=== PATIENT | male | born 1975 | race Caucasian/White ===

== ENCOUNTER 2025-03-16 09:30 | Inpatient (IN) | payer OTHER, SELFPAY ==
[2025-03-16] VITALS (13 sets, daily range): BP systolic 95–153; BP diastolic 52–98; PULSE 63–100; RESP 14–18; TEMP 36.1–37.1; O2SAT 93–99; BMI 35.9; BMI 25.7
[2025-03-16 10:12] LABS: Hematocrit 48.0 % (40-54); Hemoglobin 17.0 g/dL (13.0-16.5); Immature Granulocytes Count 0.040 X10^3/uL (0.0-0.0); Mean Corp Hgb Conc 35.4 g/dL (32-36); Mean Corpuscular Volume 80.9 fL (80-94); Mean Platelet Vol. 10.6 fl (6.2-12.0); NRBC Flagged by Analyzer 0 % (0-5); Platelet Count 237 K/mm3 (150-450); RBC Distribution Width CV 12.7 % (11.6-14.6); RBC Distribution Width SD 37.0 fl (35.1-43.9); Red Blood Count 5.93 M/mm3 (4.6-6.2); White Blood Count 9.0 K/mm3 (4.4-11.0)
--- NOTE | 2025-03-16 10:30 | US_ITS ---
PROCEDURE: GALLBLADDER 03/16/2025 REASON FOR EXAM: RUQ PAIN TECHNIQUE: Procedure Code: USGB Modality: US Procedure: GALLBLADDER. Real-time ultrasound of the right upper quadrant with image documentation. COMPARISON: None. FINDINGS: LIVER ECHOGENICITY: Diffuse increase in hepatic parenchymal echogenicity. SIZE: Enlarged measuring 17.5 cm in length. CONTOUR: Smooth. MASS: Hypoechoic 3.9 x 3.1 x 3.7 cm lesion in the right lobe with internal vascularity. PORTAL VEIN: Normal direction hepatopetal portal venous flow. GALLBLADDER SIZE: Normal. STONES: Multiple. SLUDGE: None. WALL THICKNESS: Normal measuring 1.6 mm. Echogenic intramural foci producing comet tail reverberation artifact, suggest gallbladder adenomyomatosis. PERICHOLECYSTIC FLUID: None. SONOGRAPHIC RAMÍREZ'S SIGN: Negative. BILE DUCTS: Distended CBD measuring 7.0 mm in diameter. PANCREAS: Unremarkable as visualized. The distal pancreas is obscured by overlying bowel gas. RIGHT KIDNEY: Normal size and echogenicity with a length of 11.6 cm. No hydronephrosis, nephrolithiasis, cyst or mass seen. ASCITES/EFFUSIONS: None. OTHER: None. US/Gallbladder IMPRESSION: 1. Enlarged hyperechoic liver, suggesting hepatic steatosis, although other di ffuse liver diseases can have this appearance. 2. Hypoechoic lesion in the right liver. A follow-up liver protocol CT or MRI is recommended to further evaluate. 3. Cholelithiasis without signs of acute cholecystitis. 4. Findings suggesting gallbladder adenomyomatosis. 5. Distended common bile duct, without an obstructing lesion seen. Reading Location: [id number]
--- NOTE | 2025-03-16 10:34 | EKG12_ITS ---
Test Reason : GENERAL Blood Pressure : */* mmHG Vent. Rate : 76 BPM Atrial Rate : 76 BPM P-R Int : 170 ms QRS Dur : 76 ms QT Int : 354 ms P-R-T Axes : 51 18 38 degrees QTcB Int : 398 ms Normal sinus rhythm with sinus arrhythmia Normal ECG Confirmed by CONSTANTIN FRAUSTO ([id number]), photograph editor CARI OLIVARES ([id number]) on 03/19/2025 9:11:15 AM Referred By: Confirmed By: CONSTANTIN FRAUSTO
[2025-03-16 10:40] LABS: Mucous, Urine 0 SEEN /hpf (<or=2+); Red Blood Cells-Urine 0 SEEN /hpf (0-5); Squamous Epithelial Cells - UA 0 SEEN /hpf (0-5)
[2025-03-16 10:42] LABS: Lipase 50 U/L (13-75)
[2025-03-16 10:42] LABS: Color, Urine Yellow (Yellow); Glucose, Dipstick Normal (Normal); Ketone-Dipstick Negative (Negative); Leukocyte Esterase-Dipstick Negative /ul (Negative); Nitrite-Dipstick Negative (Negative); Occult Blood-Urine 10 /ul (Negative); Protein-Dipstick Negative (Negative); Specific Gravity, Urine 1.010 (1.002-1.030); Urine Bilirubin Dipstick Negative (Negative)
[2025-03-16 10:46] LABS: AST(SGOT) 525 U/L (<=37); Alanine Aminotransfer ALT/SGPT 370 U/L (<=46); Albumin, Serum 4.7 g/dL (3.5-5.0); Alkaline Phosphatase 64 U/L (40-129); Anion Gap 14 (5-15); BUN 13 mg/dL (4-19); BUN/Creat Ratio 13.1 RATIO (10-20); Calcium,Total 10.4 mg/dL (7.6-11.0); Carbon Dioxide 20.3 mmol/L (21.0-32.0); Chloride 104 mmol/L (98-108); Estimated Creatinine Clearance 102.77 ml/min (50-250); Globulin 2.9 g/dL (2.2-4.2); Glucose 118 mg/dL (70-99); Potassium 4.2 mmol/L (3.3-5.1)
--- NOTE | 2025-03-16 11:11 | EDS_ITS ---
HPI HPI - GI History of Present Illness Chief Complaint: Abd Pain Informant: patient Narrative Narrative: Patient is a 49-year-old male with no significant past medical history presenting with worsening upper abdominal pain. has been having issues with epigastric/right upper quadrant abdominal pain for some time and self diagnosed himself with gallstone/gallbladder problems. most recently had episode about 2 weeks ago where he had relatively severe pain in her right upper quadrant after eating a particularly fatty meal that lasted for about 3 hours. States since then he has been watching his diet. Last night he had [employer] (a burrito and chalupa) around 6 PM and then around 10 PM had a cold cut sandwich and glass of iced tea. States that around 1:30 AM he started to have pain in his upper abdomen area that is more in the middle but goes across his whole upper abdomen. Denies any radiation to his back or chest. Has associated nausea. States the pain is not as sharp as has been before but is more dull in nature. Took 2 Tums around 6 AM with no significant relief. States he has not had anything to eat or drink today. Notes the pain is better if he hunches over and worse if he sits up straight. Notes he has been taking antacids more frequently lately. Denies any black or blood in his stool. Nuys any change in his bowel movements. Denies a history of any abdominal surgeries. Thinks when he is a teenager he maybe had some gastritis but does not recall the details. Does not have any known history of stomach ulcers. No fevers or chills reported. No other complaints or concerns at this time [facility] Medical History GERD (gastroesophageal reflux disease) Medical History no medical history Allergy/AdvReac Type Severity Reaction Status Date / Time No Known Allergies Allergy Verified 03/16/25 13:09 Social History Smoking Status: Never smoker ROS ROS ED Constitutional Constitutional ED: Denies chills or fever(s) Respiratory/Chest Respiratory/Chest: Denies cough Gastrointestinal Gastrointestinal: Reports abdominal pain and nausea; Denies constipation, diarrhea, melena or vomiting Genitourinary Genitourinary ED: Denies dysuria or hematuria Musculoskeletal Musculoskeletal: Denies arthralgias, back pain or myalgias Integumentary Denies rash Neurologic Neurologic: Denies weakness EXAM Physical Exam Const Vital Signs: 03/16/25 09:32 03/16/25 11:32 03/16/25 12:30 Temperature 97.2 F L 98.7 F Temperature Source Temporal Pulse Rate 100 75 68 Respiratory Rate 14 18 18 Blood Pressure 153/88 H 113/73 121/78 H Blood Pressure Mean 109 86 92 Pulse Ox 99 97 98 Oxygen Delivery Method Room Air Room Air Positive well nourished and well developed General Appearance ED: well developed; Negative for pallor HEENT normocephalic and atraumatic Eyes General Eye ED: Negative for pale conjunctiva or scleral icterus Neck supple and no JVD Resp normal respiratory effort and clear to auscultation bilaterally Cardio regular rate, regular rhythm and no murmurs GI non-distended GI Narrative: Mild epigastric abdominal tenderness, not highly reproduced on exam. Points to his right upper quadrant really as the area of his pain usually. Negative Flores sign. Inspection: Negative for abdominal distention Auscultation: normoactive bowel sounds Palpation: soft Back/Spine no CVA tenderness Extremity full ROM Neuro moves all extremities Sensorium / Orientation: alert Psych mental status grossly normal Skin no wounds General Skin Exam: Negative for jaundice or pallor MDM MDM MDM Narrative Medical decision making narrative: Patient evaluated for upper abdominal pain. Ports that history intermittent episodes of pain concerning for possible biliary colic. Differential also includes choledocholithiasis, acute cholecystitis, pancreatitis as well as gastritis/peptic ulcer disease. Patient's physical exam is relatively benign with a negative Flores sign. CBC coags normal. CMP does show an elevation of his total bilirubin as well as elevation of AST and ALT concerning for possible obstructive process. Direct bilirubin is added which is elevated. Lipase is normal. Urinalysis and is largely normal with negative bilirubin. Right upper quadrant ultrasound does not shows acute cholecystitis but does show some abnormalities of the liver as well as cholelithiasis and a dilation of the common bile duct. Concern for possible choledocholithiasis. Case is discussed with Dr. Sarah who agrees that patient benefit from ERCP. Patient will be admitted for this. Is kept NPO. Patient is given Protonix, IV fluids in the emergency room. Does not require pain medication in the ER as he states his pain is pretty mild at this time. Case is discussed with hospitalist for admission, Dr. Puckett. Lab Data Attestation: I reviewed the patient's lab results. Labs: Laboratory Results - last 24 hr 03/16/25 03/16/25 09:54 10:37 WBC 9.0 RBC 5.93 Hgb 17.0 H Hct 48.0 MCV 80.9 MCH 28.7 MCHC 35.4 RDW Std Deviation 37.0 RDW Coeff of Ghulam 12.7 Plt Count 237 MPV 10.6 Immature Gran % (Auto) 0.400 Neut % (Auto) 75.9 H Lymph % (Auto) 17.5 L [place] % (Auto) 4.8 Eos % (Auto) 1.0 Baso % (Auto) 0.4 Absolute Neuts (auto) 6.8 Absolute Lymphs (auto) 1.58 Nucleated RBC % 0 PT 13.3 INR 1.0 Sodium 138 Potassium 4.2 Chloride 104 Carbon Dioxide 20.3 L Anion Gap 14 BUN 13 Creatinine 1.02 Estim Creat Clear Calc 102.77 Est GFR (MDRD) Non-Af 90 BUN/Creatinine Ratio 13.1 Glucose 118 H Calcium 10.4 Total Bilirubin 1.60 H Direct Bilirubin 0.73 H AST 525 H ALT 370 H Alkaline Phosphatase 64 Total Protein 7.5 Albumin 4.7 Globulin 2.9 Albumin/Globulin Ratio 1.6 Lipase 50 Urine Color Yellow Urine Clarity Sl. Cloudy Urine pH 6.0 Ur Specific [place] 1.010 Urine Protein Negative Urine Glucose (UA) Normal Urine Ketones Negative Urine Occult Blood 10 H Urine Nitrite Negative Urine Bilirubin Negative Urine Urobilinogen Normal Ur Leukocyte Esterase Negative Urine RBC 0 SEEN Urine WBC 0 SEEN Ur Squamous Epith Cells 0 SEEN Urine Bacteria 0 SEEN Urine Mucus 0 SEEN Radiography Diagnostic Testing: Clinical Impression(s) from Imaging Studies Gallbladder Ultrasound 03/16/25 10:30 IMPRESSION: 1. Enlarged hyperechoic liver, suggesting hepatic steatosis, although other diffuse liver diseases can have this appearance. 2. Hypoechoic lesion in the right liver. A follow-up liver protocol CT or MRI is recommended to further evaluate. 3. Cholelithiasis without signs of acute cholecystitis. 4. Findings suggesting gallbladder adenomyomatosis. 5. Distended common bile duct, without an obstructing lesion seen. Reading Location: [facility] Abdomen/Pelvis CT 03/16/25 12:05 IMPRESSION: Fatty liver. Well-defined lesion right lobe of liver favor focal nodular hyperplasia. Follow-up MR of the abdomen with Eovist in 4-6 months to confirm stability possibly helpful. Reading Location: [facility] Rhythm Strip Rhythm Strip: Sinus Rhythm Rate: 76 Ectopy: None EKG Initial EKG: Attestation: I personally reviewed and interpreted this EKG as follows: Interpretation: Sinus Rhythm Comments: Normal sinus rhythm rate of 76 bpm with sinus arrhythmia Normal axis Normal intervals Normal ST segments Management Discussion w/another healthcare provider: Hospitalist and Copy Coordinator Discharge Plan Dx/Rx/DC Orders Clinical Impression: Cholelithiasis with acute on chronic cholecystitis Disposition Disposition: Acute Care Hospital [facility] Discharge Date/Time: 03/16/25 12:44
[2025-03-16] MEDS: 0.9% Normal Saline (1000mL) 1,000 ML 999 ML IV (11:38)
--- NOTE | 2025-03-16 12:05 | CT_ITS ---
PROCEDURE: CT ABD/PELVIS W/WO CONTRAST 03/16/2025 REASON FOR EXAM: LIVER LESION ABOUT 4CM IN LIVER US TECHNIQUE: Procedure Code: [id number] Modality: CT Procedure: CT ABD/PELVIS W/WO CONTRAST Coronal and Sagittal reconstruction series were provided. CONTRAST: Isovue 370 VOLUME: 90 mL One or more dose reduction techniques were used (e.g., Automated exposure control, adjustment of the mA and/or kV according to patient size, use of iterative reconstruction technique. RADIATION DOSE SUMMARY: CTDlvol: 100 mGy DLP: 3192 mGycm COMPARISON: Recent ultrasound. FINDINGS: Lung bases: Mild dependent atelectasis ABDOMEN Liver: Mild diffuse fatty infiltration of the liver. Focal lesion in the right lobe of liver which does enhance vividly on the arterial images and partially fills in on delayed images. This has a central area with diminished enhancement. This lesion has similar enhancement to remainder of the liver on delayed images. No other lesions. Biliary system: Negative. Negative for intrahepatic or extrahepatic ductal dilatation. Gallbladder: Contains numerous stones. Negative for cholecystitis. Spleen: Negative. Pancreas: Negative. Adrenals: Negative. Kidneys: Negative. Negative for kidney stones, cysts or masses. Bowel: Diverticulosis. Negative for small or large-bowel obstruction. Appendix: Negative. Vasculature: Negative for atherosclerotic vascular calcifications of the abdominal aorta and its branches. Peritoneum / Retroperitoneum: Negative. Bones and Soft Tissues: Age appropriate degenerative changes of the lumbar spine hips and pelvis. Pelvis: Prostate negative. Soft tissue pelvis negative. No inguinal or iliac adenopathy. CT/CT Abd/Pelvis W/WO Contrast IMPRESSION: Fatty liver. Well-defined lesion right lobe of liver favor focal nodular hyperplasia. Follow-up MR of the abdomen with Eovist in 4-6 months to confirm stability poss ibly helpful. Reading Location: [id number]
[2025-03-16 13:03] LABS: Bilirubin, Direct 0.73 mg/dL (0.00-0.30)
--- NOTE | 2025-03-16 13:34 | HP.PCM.HOS_ITS ---
HPI - General General Date of Admission: 03/16/25 Date of Service: 03/16/25 Chief Complaint: Right upper quadrant abdominal pain started at 1:30 AM today. No relief HPI Narrative ALONDRA ARITA, is a 49 M with history of intermittent right upper quadrant pain for 5 years probably GB colic, once every 2 to 4 months came to the ED when he got right upper quadrant pain, gnawing in type , long-lasting did not get better since 1:30 AM today. Patient stated previous episode, used to get better in a half an hour but this time it was not getting better. He said he never had been evaluated by previous episodes of abdominal pain continues to get better with Motrin. No fever, nausea but no vomiting. Pain is more about her right upper and epigastric region ,localized with no radiation. In ED, right upper quadrant shows cholelithiasis, CBD dilatation, liver lesion, described in assessment plan. [facility] Medical History GERD (gastroesophageal reflux disease) Medical History no medical history Allergy/AdvReac Type Severity Reaction Status Date / Time No Known Allergies Allergy Verified 03/16/25 13:09 Social History Smoking Status: Never smoker ROS ROS Narrative Constitutional: Reports fatigue and weakness. No fever. HEENT: Reports systems reviewed and no addt'l complaints, except as documented Respiratory/Chest: No smoking. No acute shortness of breath or respiratory distress or wheezing. CVS: No chest pain pressure tightness. Denies chronic cardiac disease Gastrointestinal: Rest as described in HPI. Bowel movements are normal. Denies coffee ground emesis, hematemesis or vomiting Genitourinary: Denies burning urination or new urinary tract symptoms Musculoskeletal: Denies acute joint pain or limited range of motion. No acute injury Neurologic: Denies seizure-like symptoms. skin: No ulcer. No rash Endocrinology: Reports systems reviewed and no addt'l complaints, except as documented Hematologic/Lymphatic: Reports systems reviewed and no addt'l complaints, except as documented Rest 14 ROS are negative except as mentioned in HPI Vital Signs Vital Signs Vital Signs: 03/16/25 09:32 03/16/25 11:32 03/16/25 12:30 Temperature 97.2 F L 98.7 F Temperature Source Temporal Pulse Rate 100 75 68 Respiratory Rate 14 18 18 Respiratory Effort Respiratory Depth Respiratory Pattern Blood Pressure 153/88 H 113/73 121/78 H Blood Pressure Mean 109 86 92 Blood Pressure Source Blood Pressure Position Blood Pressure Location Pulse Ox 99 97 98 Oxygen Delivery Method Room Air Room Air 03/16/25 13:03 03/16/25 13:12 Temperature 98 F Temperature Source Oral Pulse Rate 72 Respiratory Rate 18 Respiratory Effort Normal Respiratory Depth Normal Respiratory Pattern Normal Blood Pressure 146/98 H Blood Pressure Mean 114 Blood Pressure Source Monitor Blood Pressure Position Sitting Blood Pressure Location Left Forearm Pulse Ox 97 Oxygen Delivery Method Room Air Room Air Weight Weight: 234 lb Body Mass Index (BMI) 25.7 Physical Exam Narrative General: Alert, Oriented x3, Cooperative. BMI 25.7 kg/m² HEENT: Atraumatic, PERRLA, EOMI, Normocephalic. Oral: Oral mucosa dry. No Gingival or Mucosal Lesions/ Ulcerations Neck: Supple, No JVD, Negative Carotid Bruits Chest wall/Lungs: Air entry equal in bilateral lung bases. No crepitation/rhonchi Cardiovascular: Regular rate and rhythm, Normal S1,S2, No M/G/R Abdomen: Bowel Sounds sluggish, Soft, mild tenderness right upper quadrant and epigastric region. No distention : No dysuria. No renal angle tenderness. No suprapubic tenderness. Extremities: No edema, Capillary Refill Less than 3 Seconds Skin: No rashes, No breakdown Musculoskeletal: No Tenderness to Palpation of Joints or Extremities Neurological: Cranial nerves II-XII grossly intact, DTR 2+/4. No acute focal neurological deficit. Psych/Mental Status: Normal Affect, Appropriate. Results Lab / Micro Data 03/16/25 09:54 03/16/25 09:54 Labs: Laboratory Results - last 24 hr 03/16/25 09:54: WBC 9.0, RBC 5.93, Hgb 17.0 H, Hct 48.0, MCV 80.9, MCH 28.7, MCHC 35.4, RDW Std Deviation 37.0, RDW Coeff of Ghulam 12.7, Plt Count 237, MPV 10.6, Immature Gran % (Auto) 0.400, Neut % (Auto) 75.9 H, Lymph % (Auto) 17.5 L, [place] % (Auto) 4.8, Eos % (Auto) 1.0, Baso % (Auto) 0.4, Absolute Neuts (auto) 6.8, Absolute Lymphs (auto) 1.58, Nucleated RBC % 0, Sodium 138, Potassium 4.2, Chloride 104, Carbon Dioxide 20.3 L, Anion Gap 14, BUN 13, Creatinine 1.02, Estim Creat Clear Calc 102.77, Est GFR (MDRD) Non-Af 90, BUN/Creatinine Ratio 13.1, Glucose 118 H, Calcium 10.4, Total Bilirubin 1.60 H, Direct Bilirubin 0.73 H, AST 525 H, ALT 370 H, Alkaline Phosphatase 64, Total Protein 7.5, Albumin 4.7, Globulin 2.9, Albumin/Globulin Ratio 1.6, Lipase 50 03/16/25 10:37: Urine Color Yellow, Urine Clarity Sl. Cloudy, Urine pH 6.0, Ur Specific [place] 1.010, Urine Protein Negative, Urine Glucose (UA) Normal, Urine Ketones Negative, Urine Occult Blood 10 H, Urine Nitrite Negative, Urine Bilirubin Negative, Urine Urobilinogen Normal, Ur Leukocyte Esterase Negative, Urine RBC 0 SEEN, Urine WBC 0 SEEN, Ur Squamous Epith Cells 0 SEEN, Urine Bacteria 0 SEEN, Urine Mucus 0 SEEN Imaging Radiology Impression Gallbladder Ultrasound 03/16/25 10:30 IMPRESSION: 1. Enlarged hyperechoic liver, suggesting hepatic steatosis, although other diffuse liver diseases can have this appearance. 2. Hypoechoic lesion in the right liver. A follow-up liver protocol CT or MRI is recommended to further evaluate. 3. Cholelithiasis without signs of acute cholecystitis. 4. Findings suggesting gallbladder adenomyomatosis. 5. Distended common bile duct, without an obstructing lesion seen. Reading Location: [id number] Assessment & Plan Assessment/Plan (1) Cholelithiasis with acute on chronic cholecystitis: PLAN: Plan 49-year-old gentleman came to ED with right upper and epigastric abdominal pain since 1:30 AM today with nausea. 1. Acute on chronic GB colic with cholelithiasis with suspicion of choledocholithiasis: Patient is being admitted to [facility] floor. RUQ sonogram shows cholelithiasis without signs of acute cholecystitis. 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 GB reported normal in size with multiple stones, wall thickness 1.6 cm with echogenic intraluminal foci present, travel artifact suggesting of GB adenomyomatosis. No pericholecystic fluid. Clinically patient does not have fever, leukocytosis therefore suspicion of acute cholecystitis less likely. Dr. Sarah consulted for ERCP. I discussed with surgeon Dr. Philip and she states she will follow peripherally but will need follow-up in surgery office for interval cholecystectomy as there is a big stone with possible central trapped air as seen on CT scan. 2. Suspected Acute liver injury from cholelithiasis/and suspected choledocholithiasis: No previous lab to compare. Total bili 1.6, TB 0.73 AST 525, ALT 370, ALP normal. Lipase 50. 3. Liver lesion suspected benign lesion focal nodular hyperplasia and diffuse hepatic steatosis/MASLD/MASH: Ultrasound shows hypoechoic lesion in the right liver for which CT triple phase was done. It shows focal lesion right lobe of liver which enhance on the arterial image with partially fills on delayed images. There is central area with diminished enhancement. Lesion had similar enhancement to remainder of the liver on delayed images. It favors more focal nodular hyperplasia. Liver ultrasound shows enlarged hyperechoic liver suggestive of hepatic steatosis 4. Unknown past medical history but patient denies hypertension or diabetes mellitus. He does not have PCP. Never smoker. Does not drink alcohol. No substance use. 5. DVT prophylaxis, moderate risk on Lovenox 40 mg subcu daily Living will/advanced directive/end of life care: Patient does not have living will or advanced directive. After discussion of benefits/risks procedures involved with full code, DNR CC arrest and DNR CC, the patient opted for full code. Patient does want artificial life support including intubation, tube feed, ventilator and/chest compression, central venous catheter, vasopressor and DC shock if needed Total time spent in [id number] encounter in discussion of advanced directive 17 minutes. Laboratory Results 03/16/25 09:54: WBC 9.0, RBC 5.93, Hgb 17.0 H, Hct 48.0, MCV 80.9, MCH 28.7, MCHC 35.4, RDW Std Deviation 37.0, RDW Coeff of Ghulam 12.7, Plt Count 237, MPV 10.6, Immature Gran % (Auto) 0.400, Neut % (Auto) 75.9 H, Lymph % (Auto) 17.5 L, [place] % (Auto) 4.8, Eos % (Auto) 1.0, Baso % (Auto) 0.4, Absolute Neuts (auto) 6.8, Absolute Lymphs (auto) 1.58, Nucleated RBC % 0, PT 13.3, INR 1.0, Sodium 138, Potassium 4.2, Chloride 104, Carbon Dioxide 20.3 L, Anion Gap 14, BUN 13, Creatinine 1.02, Estim Creat Clear Calc 102.77, Est GFR (MDRD) Non-Af 90, BUN/Creatinine Ratio 13.1, Glucose 118 H, Calcium 10.4, Total Bilirubin 1.60 H, Direct Bilirubin 0.73 H, AST 525 H, ALT 370 H, Alkaline Phosphatase 64, Total Protein 7.5, Albumin 4.7, Globulin 2.9, Albumin/Globulin Ratio 1.6, Lipase 50 03/16/25 10:37: Urine Color Yellow, Urine Clarity Sl. Cloudy, Urine pH 6.0, Ur Specific [place] 1.010, Urine Protein Negative, Urine Glucose (UA) Normal, Urine Ketones Negative, Urine Occult Blood 10 H, Urine Nitrite Negative, Urine Bilirubin Negative, Urine Urobilinogen Normal, Ur Leukocyte Esterase Negative, Urine RBC 0 SEEN, Urine WBC 0 SEEN, Ur Squamous Epith Cells 0 SEEN, Urine Bacteria 0 SEEN, Urine Mucus 0 SEEN Clinical Impression(s) from Imaging Studies Gallbladder Ultrasound 03/16/25 10:30 IMPRESSION: 1. Enlarged hyperechoic liver, suggesting hepatic steatosis, although other diffuse liver diseases can have this appearance. 2. Hypoechoic lesion in the right liver. A follow-up liver protocol CT or MRI is recommended to further evaluate. 3. Cholelithiasis without signs of acute cholecystitis. 4. Findings suggesting gallbladder adenomyomatosis. 5. Distended common bile duct, without an obstructing lesion seen. Abdomen/Pelvis CT 03/16/25 12:05 IMPRESSION: Fatty liver. Well-defined lesion right lobe of liver favor focal nodular hyperplasia. Follow-up MR of the abdomen with Eovist in 4-6 months to confirm stability possibly helpful. Reading Location: [id number] Charges/Coding Visit Charges Inpatient E&M: 67189 Init Hosp L3 Procedures Hospitalists Procedures: 68322 Advncd Care Plan 30 Min
[2025-03-16] MEDS: Piperacil/Tazobactam 3.375 GM in 0.9% Normal Saline (50mL MB+) 50 ML IV ×2 (13:40→22:21)
[2025-03-16 13:42] LABS: Prothrombin Time (Protime)PT. 13.3 SECONDS (11.7-14.9)
[2025-03-16] MEDS: 0.9% Normal Saline (1000mL) 1,000 ML 75 ML IV (13:43)
--- NOTE | 2025-03-16 14:15 | NURSING ---
pt to surgery
--- NOTE | 2025-03-16 14:33 | PRE.ANES_ITS ---
ASA Classification* ASA Classification ASA Classification: 1 and E Assessment & Plan Anesthesia* Anesthesia Assessment Anesthesia Assessment: Discussed sedation and/or anesthesia options, risks, benefits, and alternatives with patient/parents/legal guardian/POA. Questions invited. The patient/parents/legal guardian/POA seems to understand and agrees to proceed with anesthesia plan. Reviewed the physical assessment, medical history, allergy history and patient home medications list prior to surgery/procedure/anesthetic and documented any changes. Performed airway and anesthesia risk assessments. Anesthesia Type Anesthesia Type: General and MAC History Source History Obtained from:: Patient and Chart Anesthesia Focused Assessment* Temperature: 98 F Pulse Rate: 72 Blood Pressure: 146/98 Respiratory Rate: 18 Pulse Ox: 97 Oxygen Delivery Method: Room Air Airway Assessment Mouth opens: >3 cm Mallampati Score: II Teeth Condition: Intact Neck Range of motion (ROM): Full ROM Labs Anesthesia Preop lab: CBC WBC, (4.4-11.0) 9.0 K/mm3 Today, 09:54 RBC, (4.6-6.2) 5.93 M/mm3 Today, 09:54 Hgb, (13.0-16.5) 17.0 g/dL H Today, 09:54 Hct, (40-54) 48.0 % Today, 09:54 Plt Count, (150-450) 237 K/mm3 Today, 09:54 CHEMISTRY Potassium, (3.3-5.1) 4.2 mmol/L Today, 09:54 Sodium, (133-145) 138 mmol/L Today, 09:54 BUN, (4-19) 13 mg/dL Today, 09:54 Creatinine, (0.70-1.20) 1.02 mg/dL Today, 09:54 Glucose, (70-99) 118 mg/dL H Today, 09:54 COAG PT, (11.7-14.9) 13.3 SECONDS Today, 09:54 Pre-Assessment Diagnosis/Proposed Procedure Planned Operative Procedure(s): ERCP Anesthesia History 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 When Was Last Pacemaker Check QUESTION #4 FULL TEXT: You/Your Family Experience fever (hyperthermia) with Anesthesia Last Oral Intake Last Oral intake: Last Oral Intake NPO since Meds taken in AM with sips of water? Meds patient instructed to take am of surgery PONV PONV - mercantile reporter: PONV - mercantile reporter Female HX of Motion Sickness HX of N/V After Surgery Non-Smoker Duration of Surgery greater than 60 minutes Number of Risk Factors PONV Score Height & Weight Height & Weight: Anesthesia: Height & Weight Height 6 ft 8 in 03/16/25 13:04 Weight: 106.141 kg 03/16/25 13:04 Body Mass Index (BMI) 25.7 03/16/25 13:04 Respiratory Assessment Respiratory Assessment - mercantile reporter: Respiratory Tract Infection Hx - mercantile reporter Hx Respiratory Tract Infection No 03/16/25 13:51 STOP Sleep Apnea STOP Sleep Apnea - mercantile reporter: STOP Sleep Apnea - mercantile reporter Hx Hypertension No 03/16/25 13:53 Hx Sleep Apnea No 03/16/25 13:04 CPAP BIPAP Do you snore loudly (louder Yes 03/16/25 13:04 than talking or can be heard Do you often feel tired/ No 03/16/25 13:04 fatigued/ sleepy during daytime? Has anyone observed you stop No 03/16/25 13:04 breathing during sleep? STOP Results Negative 03/16/25 13:04 QUESTION #5 FULL TEXT : Do you snore loudly (louder than talking or can be heard through closed doors)? 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 Specify any problems Hx of Preganancy in last 3 N/A 03/16/25 13:04 Months Nurse Filling Out Transfusion TWOLF 03/16/25 13:04 & Questions: Date: 03/16/25 03/16/25 13:04 Time: 13:06 03/16/25 13:04 Patient unable to answer at this time (ie. confused, unrespo /Reproduction History /Reproductive History - mercantile reporter: /Reproductive Hx- mercantile reporter Hx Now No 03/16/25 13:51 Gestational Age (in weeks): EDC: Hx Hx Para Hx Section SAB No 03/16/25 13:51 Active Medications Active Medications: Current Medications Generic Name Dose Route Start Last Admin Trade Name Freq PRN Reason Stop Dose Admin Acetaminophen 650 mg 03/16/25 13:32 Acetaminophen 325 Mg Tablet PO Q6H PRN PRN Pain 1-10 Or Fever>100.7 Enoxaparin Sodium 40 mg 03/16/25 13:32 03/16/25 13:56 Enoxaparin 40 Mg/0.4 Ml Syringe SC Not Given Q24H DIA Sodium Chloride 250 mls @ 15 mls/hr 03/16/25 13:09 IV .[id number] PRN Saline Flush Sodium Chloride 250 mls @ 15 mls/hr 03/16/25 13:09 IV .[id number] PRN Additional IVPB Infusion Piperacillin Sod/Tazobactam 50 mls @ 12.5 mls/hr 03/16/25 13:30 03/16/25 13:40 Sod 3.375 gm/ Sodium Chloride IV 12.5 mls/hr Q8 DIA Administration Sodium Chloride 1,000 mls @ 75 mls/hr 03/16/25 13:32 03/16/25 13:43 IV 03/17/25 16:11 75 mls/hr .[id number] DIA Administration Influenza Virus Vacc Trival Recomb 45 mcg 03/17/25 10:00 Flu Vaccine (6mos Up) 45 Mcg/0.5 Ml Syringe IM 03/17/25 10:01 .ONCE ONE Morphine Sulfate 2 - 4 mg 03/16/25 13:32 Morphine 2 Mg/Ml Syringe IV Q3H PRN PRN Pain Score 6-10 Senna/Docusate Sodium 2 tablet 03/16/25 13:32 Senna/Docusate Sodium 1 Tablet PO BID PRN PRN Constipation Sodium Chloride 10 - 40 ml 03/16/25 13:09 0.9% Saline Lock 10 Ml Syringe IV UD PRN SALINE FLUSH PFSH Medical History GERD (gastroesophageal reflux disease) Medical History no medical history Allergy/AdvReac Type Severity Reaction Status Date / Time No Known Allergies Allergy Verified 03/16/25 13:09 Social History Smoking Status: Never smoker Review of Systems (Anesthesia) ROS Narrative System reviewed and no additional complaints, except as documented.
--- NOTE | 2025-03-16 15:37 | EX.PCM.CON.G ---
HPI Consult Data Date of Consult: 03/16/25 HPI Narrative HPI Narrative: ALONDRA ARITA, is a 49-year-old male with no significant past medical history presenting with worsening upper abdominal pain. States has been having issues with epigastric/right upper quadrant abdominal pain for some time and self diagnosed himself with gallstone/gallbladder problems. He states most recently had episode about 2 weeks ago where he had relatively severe pain in her right upper quadrant after eating a particularly fatty meal that lasted for about 3 hours. States since then he has been watching his diet. Last night he had [employer] (a burrito and chalupa) around 6 PM and then around 10 PM had a cold cut sandwich and glass of iced tea. States that around 1:30 AM he started to have pain in his upper abdomen area that is more in the middle but goes across his whole upper abdomen. He denies any radiation to his back or chest. Has associated nausea. States the pain is not as sharp as has been before but is more dull in nature. Took 2 Tums around 6 AM with no significant relief. Total Bilirubin 1.60 H, Direct Bilirubin 0.73 H, AST 525 H, ALT 370 H, Alkaline Phosphatase 64 PFSH Medical History GERD (gastroesophageal reflux disease) Medical History no medical history Allergy/AdvReac Type Severity Reaction Status Date / Time No Known Allergies Allergy Verified 03/16/25 13:09 Social History Smoking Status: Never smoker ROS Constitutional Constitutional: Denies fatigue, fever(s), poor appetite, weight gain or weight loss Gastrointestinal Gastrointestinal: Denies belching, bloating, change in bowel habits, change in stool character, chewing difficulty, coffee ground emesis, constipation, cramping, diarrhea, dyspepsia, dysphagia, early satiety, excessive flatus, fecal incontinence, heartburn, hematemesis, hematochezia, hemorrhoids, loose stools, melena, nausea, odynophagia, rectal bleeding, tenesmus, vomiting or weight changes Physical Exam Const alert, oriented x3, no apparent distress and healthy appearing General Appearance: cooperative GI normal to inspection, nondistended, normoactive bowel sounds, soft to palpation, non-tender and non-distended Percussion: normal to percussion Rectal Exam: deferred Lab / Micro Data 03/16/25 09:54 03/16/25 09:54 Labs: Laboratory Results - last 24 hr 03/16/25 09:54: WBC 9.0, RBC 5.93, Hgb 17.0 H, Hct 48.0, MCV 80.9, MCH 28.7, MCHC 35.4, RDW Std Deviation 37.0, RDW Coeff of Ghulam 12.7, Plt Count 237, MPV 10.6, Immature Gran % (Auto) 0.400, Neut % (Auto) 75.9 H, Lymph % (Auto) 17.5 L, [place] % (Auto) 4.8, Eos % (Auto) 1.0, Baso % (Auto) 0.4, Absolute Neuts (auto) 6.8, Absolute Lymphs (auto) 1.58, Nucleated RBC % 0, PT 13.3, INR 1.0, Sodium 138, Potassium 4.2, Chloride 104, Carbon Dioxide 20.3 L, Anion Gap 14, BUN 13, Creatinine 1.02, Estim Creat Clear Calc 102.77, Est GFR (MDRD) Non-Af 90, BUN/Creatinine Ratio 13.1, Glucose 118 H, Calcium 10.4, Total Bilirubin 1.60 H, Direct Bilirubin 0.73 H, AST 525 H, ALT 370 H, Alkaline Phosphatase 64, Total Protein 7.5, Albumin 4.7, Globulin 2.9, Albumin/Globulin Ratio 1.6, Lipase 50 03/16/25 10:37: Urine Color Yellow, Urine Clarity Sl. Cloudy, Urine pH 6.0, Ur Specific [place] 1.010, Urine Protein Negative, Urine Glucose (UA) Normal, Urine Ketones Negative, Urine Occult Blood 10 H, Urine Nitrite Negative, Urine Bilirubin Negative, Urine Urobilinogen Normal, Ur Leukocyte Esterase Negative, Urine RBC 0 SEEN, Urine WBC 0 SEEN, Ur Squamous Epith Cells 0 SEEN, Urine Bacteria 0 SEEN, Urine Mucus 0 SEEN Imaging Radiology Impression Gallbladder Ultrasound 03/16/25 10:30 IMPRESSION: 1. Enlarged hyperechoic liver, suggesting hepatic steatosis, although other diffuse liver diseases can have this appearance. 2. Hypoechoic lesion in the right liver. A follow-up liver protocol CT or MRI is recommended to further evaluate. 3. Cholelithiasis without signs of acute cholecystitis. 4. Findings suggesting gallbladder adenomyomatosis. 5. Distended common bile duct, without an obstructing lesion seen. Reading Location: [id number] Abdomen/Pelvis CT 03/16/25 12:05 IMPRESSION: Fatty liver. Well-defined lesion right lobe of liver favor focal nodular hyperplasia. Follow-up MR of the abdomen with Eovist in 4-6 months to confirm stability possibly helpful. Reading Location: [id number] Assessment & Plan Assessment/Plan (1) Cholelithiasis with acute on chronic cholecystitis: PLAN: Plan 49-year-old gentleman came to ED with right upper and epigastric abdominal pain since 1:30 AM today with nausea. Acute on chronic GB colic with cholelithiasis with suspicion of choledocholithiasis: . RUQ sonogram shows cholelithiasis without signs of acute cholecystitis. 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 GB reported normal in size with multiple stones, wall thickness 1.6 cm with echogenic intraluminal foci present, travel artifact suggesting of GB adenomyomatosis. Patient will undergo ERCP. He was explained alternatives, risk and benefits include # of bleeding, fracture, sepsis, perforation, need for surgery . He will have an ASA of 3. Suspected Acute liver injury from cholelithiasis/and suspected choledocholithiasis: No previous lab to compare. Total bili 1.6, TB 0.73 AST 525, ALT 370, ALP normal. Lipase 50. Charges/Coding Visit Charges Inpatient E&M: 39984 Init Hosp L3
--- NOTE | 2025-03-16 15:55 | RAD_ITS ---
EXAM: ERCP INTRAOPERATIVE FLUOROSCOPY CLINICAL HISTORY: ERCP; pain COMPARISON: Right ankle radiographs from 08/12/2014 TECHNIQUE: 10 intraoperative fluoroscopic images are submitted for review. FINDINGS: Patient is status post ERCP, which demonstrates grossly normal caliber of the intra and extrahepatic biliary ductal system, without evidence for stricture or filling defects to indicate choledocholithiasis. Total fluoroscopy time 91.1 seconds. Total radiation dose 36.45 mGy. RAD/ERCP Biliary Only IMPRESSION: Intraoperative fluoroscopy status post ERCP, as above. Reading Location: [id number]
--- NOTE | 2025-03-16 15:55 | RAD_ITS ---
EXAM: ERCP INTRAOPERATIVE FLUOROSCOPY CLINICAL HISTORY: ERCP; pain COMPARISON: Right ankle radiographs from 08/12/2014 TECHNIQUE: 10 intraoperative fluoroscopic images are submitted for review. FINDINGS: Patient is status post ERCP, which demonstrates grossly normal caliber of the intra and extrahepatic biliary ductal system, without evidence for stricture or filling defects to indicate choledocholithiasis. Total fluoroscopy time 91.1 seconds. Total radiation dose 36.45 mGy. RAD/O.R. Fluoro for C-Arm IMPRESSION: Intraoperative fluoroscopy status post ERCP, as above. Reading Location: [id number]
[2025-03-16] MEDS: fentaNYL 100 MCG/2 ML Ampul 200 MCG IV (16:02)
--- NOTE | 2025-03-16 16:35 | OP.PROVAT_ITS ---
03/16/2025 No Primary Care Physician Re : ERCP procedure for Jeffrey Delgadillo Dear Care Physician This procedure was performed on Sunday, March 16, 2025. My impressions and recommendations are as follows: Impressions : - The entire main bile duct was moderately dilated, with a stone causing an obstruction. - Choledocholithiasis was found. Partial removal was accomplished with biliary sphincterotomy; a stent was inserted. - A biliary sphincterotomy was performed. - The biliary tree was swept. - One temporary stent was placed into the common bile duct. Recommendations : My findings are described in the full procedure note, which is enclosed. If I can be of further assistance, please feel free to contact me at . Sincerely, Yevgeniy Sarah, 03/16/2025 4:35:16 PM This report has been signed electronically.
--- NOTE | 2025-03-16 16:35 | OP.ERCP_ITS ---
Patient Name: Jeffrye Delgadillo Procedure Date: 03/16/2025 3:24 PM Date of : 1975 Age: 49 Procedure: ERCP Indications: Common bile duct stone(s), Abdominal pain of suspected biliary origin, For therapy of bile duct stone(s), Elevated liver enzymes Providers: Yevgeniy Sarah DO Medicines: Monitored Anesthesia Care Patient Profile: This is a 49 year old male. Refer to note in patient chart for documentation of history and physical. Patient has symptoms of acute abdominal cramping, acute right upper quadrant abdominal pain and acute nausea. This patient has no history of previous ERCP. This patient has no history of surgical alteration of the upper digestive tract anatomy. Complications: No immediate complications. Procedure: Pre-Anesthesia Assessment: - Prior to the procedure, a History and Physical was performed, and patient medications and allergies were reviewed. The patient is competent. The risks and benefits of the procedure and the sedation options and risks were discussed with the patient. All questions were answered and informed consent was obtained. Patient identification and proposed procedure were verified by the physician in the pre-procedure area. Mental Status Examination: alert and oriented. Airway Examination: normal oropharyngeal airway and neck mobility. Respiratory Examination: clear to auscultation. CV Examination: normal. ASA Grade Assessment: II - A patient with mild systemic disease. After reviewing the risks and benefits, the patient was deemed in satisfactory condition to undergo the procedure. The anesthesia plan was to use monitored anesthesia care (MAC). Immediately prior to administration of medications, the patient was re-assessed for adequacy to receive sedatives. The heart rate, respiratory rate, oxygen saturations, blood pressure, adequacy of pulmonary ventilation, and response to care were monitored throughout the procedure. The physical status of the patient was re-assessed after the procedure. After obtaining informed consent, the scope was passed under direct vision. Throughout the procedure, the patient's blood pressure, pulse, and oxygen saturations were monitored continuously. The Duodenoscope was introduced through the mouth, and advanced to the duodenum and used to inject contrast into the bile duct. The ERCP was accomplished without difficulty. The patient tolerated the procedure well. Scope In: 4:00:46 PM Scope Out: 4:19:56 PM Total Procedure Duration Time 0 hours 19 minutes 10 seconds Findings: The table games dealer film was normal. The esophagus was successfully intubated under direct vision. The scope was advanced to a normal major papilla in the descending duodenum without detailed examination of the pharynx, larynx and associated structures, and upper GI tract. The upper GI tract was grossly normal. A long 0.025 inch Jagwire was passed into the biliary tree. The short-nosed traction sphincterotome was passed over the guidewire and the bile duct was then deeply cannulated. Contrast was injected. I personally interpreted the bile duct images. There was brisk flow of contrast through the ducts. Image quality was adequate. Contrast extended to the entire biliary tree. Opacification of the entire opacified area, main bile duct, common bile duct, cystic duct, common hepatic duct, hepatic duct bifurcation, left and right hepatic ducts and all intrahepatic branches and entire biliary tree was successful. The maximum diameter of the ducts was 9 mm. The main bile duct contained multiple stones, the largest of which was 4 mm in diameter. The main bile duct was moderately dilated, with a stone causing an obstruction. The largest diameter was 9 mm. A 5 mm biliary sphincterotomy was made with a braided traction (standard) sphincterotome using ERBE electrocautery. There was no post-sphincterotomy bleeding. The biliary tree was swept with a 12 mm balloon starting at the cystic duct, bifurcation, left intrahepatic duct(s), left main hepatic duct, right intrahepatic duct(s) and right main hepatic duct. No cystic duct stones were removed. One cystic duct stone remained. Sludge was swept from the duct. All stones were removed. One 10 Fr by 7 cm temporary stent was placed 5 cm into the common bile duct. Bile flowed through the stent. The stent was in good position. Impression: - The entire main bile duct was moderately dilated, with a stone causing an obstruction. - Choledocholithiasis was found. Partial removal was accomplished with biliary sphincterotomy; a stent was inserted. - A biliary sphincterotomy was performed. - The biliary tree was swept. - One temporary stent was placed into the common bile duct. Procedure Code(s): --- Professional --- 67511, Endoscopic retrograde cholangiopancreatography (ERCP); with placement of endoscopic stent into biliary or pancreatic duct, including pre- and post-dilation and guide wire passage, when performed, including sphincterotomy, when performed, each stent [id number], Endoscopic retrograde cholangiopancreatography (ERCP); with removal of calculi/debris from biliary/pancreatic duct(s) 01029, 26, Endoscopic catheterization of the biliary ductal system, radiological supervision and interpretation CPT copyright 2021 [employer]. All rights reserved. The codes documented in this report are preliminary and upon product inspection coordinator review may be revised to meet current compliance requirements. Yevgeniy Sarah DO 03/16/2025 4:35:16 PM This report has been signed electronically. Number of Addenda: 0 Note Initiated On: 03/16/2025 3:24 PM
--- NOTE | 2025-03-16 16:38 | PCM.POST.ANE ---
Anesthesia: Postop Eval I Current Vital Signs Temperature: 97.7 F Pulse Rate: 76 Blood Pressure: 95/52 Respiratory Rate: 16 Pulse Ox: 93 Oxygen Delivery Method: Room Air Assessment Airway patent: Yes Spontaneous unlabored respirations: Yes nausea: No Vomiting: No Anesthesia Complication: No Fluid Hydration Crystalloid volume administer (ml): 400 Total IV fluid infused: 400 Progress Note Anesthesia document: Postop Eval 1 completed: Yes
--- NOTE | 2025-03-16 16:55 | PCM.POSTANE2 ---
Anesthesia Postop Eval I Sum Anesthesia Postop Eval I Summary Anesthesia Postop Eval I Summary: Anesthesia Postop Eval I: Assessment Summary Airway patent Spontaneous unlabored respirations Mental status nausea Vomiting Anesthesia Postop Eval I: Fluid Summary Crystalloid volume administer (ml) Colloids volume administered ( ml) Blood Product volume administered (ml) Total IV fluid infused Anesthesia Postop Eval I: Summary Notes Anesthesia Complication Anesthesia Complication Comment: Post-operative progress note Anesthesia: Postop Eval II Evaluation Mental status: Awake and Calm Pain Level: 1 nausea: No Vomiting: No Complications Anesthesia Complication: No
[2025-03-16] MEDS: 0.9% Saline Lock 10 ML Syringe IV (23:40)
[2025-03-17 01:44] VITALS: BP 108/63; PULSE 69; RESP 15; TEMP 37.1; O2SAT 94
[2025-03-17] MEDS: 0.9% Normal Saline (1000mL) 1,000 ML 75 ML IV ×2 (03:05→14:20)
[2025-03-17 05:01] VITALS: BMI 25.6
[2025-03-17] MEDS: Piperacil/Tazobactam 3.375 GM in 0.9% Normal Saline (50mL MB+) 50 ML IV ×3 (05:28→22:30)
[2025-03-17 05:35] VITALS: BP 107/63; PULSE 71; RESP 15; TEMP 36.6; O2SAT 95
[2025-03-17 06:09] LABS: Hematocrit 43.5 % (40-54); Hemoglobin 15.2 g/dL (13.0-16.5); Immature Granulocytes Count 0.050 X10^3/uL (0.0-0.0); Mean Corp Hgb Conc 34.9 g/dL (32-36); Mean Corpuscular Volume 80.6 fL (80-94); Mean Platelet Vol. 10.7 fl (6.2-12.0); NRBC Flagged by Analyzer 0 % (0-5); Platelet Count 242 K/mm3 (150-450); RBC Distribution Width CV 13.2 % (11.6-14.6); RBC Distribution Width SD 38.0 fl (35.1-43.9); Red Blood Count 5.40 M/mm3 (4.6-6.2); White Blood Count 11.5 K/mm3 (4.4-11.0)
[2025-03-17 07:12] LABS: AST(SGOT) 618 U/L (<=37); Albumin, Serum 4.2 g/dL (3.5-5.0); Alkaline Phosphatase 72 U/L (40-129); Anion Gap 13 (5-15); BUN 9 mg/dL (4-19); BUN/Creat Ratio 9.9 RATIO (10-20); Bilirubin, Direct 0.91 mg/dL (0.00-0.30); Calcium,Total 9.0 mg/dL (7.6-11.0); Carbon Dioxide 19.5 mmol/L (21.0-32.0); Chloride 105 mmol/L (98-108); Estimated Creatinine Clearance 130.43 ml/min (50-250); Globulin 2.6 g/dL (2.2-4.2); Glucose 125 mg/dL (70-99); Potassium 4.0 mmol/L (3.3-5.1)
[2025-03-17 07:34] LABS: Alanine Aminotransfer ALT/SGPT 865 U/L (<=46)
--- NOTE | 2025-03-17 07:54 | PCM.PN.HOSP ---
Reason for Visit Chief Complaint: Right upper quadrant abdominal pain started at 1:30 AM today. No relief Objective Data Objective Data Vital Signs: Vital Signs Temp Pulse Resp BP Pulse Ox O2 Del Method 97.8 F 71 15 107/63 95 Room Air 03/17/25 05:35 03/17/25 05:35 03/17/25 05:35 03/17/25 05:35 03/17/25 05:35 03/17/25 05:35 Oxygen Delivery Method Room Air Weight: 232 lb 9.403 oz Body Mass Index (BMI) 25.6 Intake & Output: Intake and Output for Last 24 Hours 03/15/25 03/16/25 03/17/25 23:59 23:59 23:59 Intake Total 1250 / 1250 1050 / 1050 Balance 1250 / 1250 1050 / 1050 Lab / Micro Data 03/17/25 05:47 03/17/25 05:47 Labs: Laboratory Results - last 24 hr 03/16/25 09:54: WBC 9.0, RBC 5.93, Hgb 17.0 H, Hct 48.0, MCV 80.9, MCH 28.7, MCHC 35.4, RDW Std Deviation 37.0, RDW Coeff of Ghulam 12.7, Plt Count 237, MPV 10.6, Immature Gran % (Auto) 0.400, Neut % (Auto) 75.9 H, Lymph % (Auto) 17.5 L, [place] % (Auto) 4.8, Eos % (Auto) 1.0, Baso % (Auto) 0.4, Absolute Neuts (auto) 6.8, Absolute Lymphs (auto) 1.58, Nucleated RBC % 0, PT 13.3, INR 1.0, Sodium 138, Potassium 4.2, Chloride 104, Carbon Dioxide 20.3 L, Anion Gap 14, BUN 13, Creatinine 1.02, Estim Creat Clear Calc 102.77, Est GFR (MDRD) Non-Af 90, BUN/Creatinine Ratio 13.1, Glucose 118 H, Calcium 10.4, Total Bilirubin 1.60 H, Direct Bilirubin 0.73 H, AST 525 H, ALT 370 H, Alkaline Phosphatase 64, Total Protein 7.5, Albumin 4.7, Globulin 2.9, Albumin/Globulin Ratio 1.6, Lipase 50 03/16/25 10:37: Urine Color Yellow, Urine Clarity Sl. Cloudy, Urine pH 6.0, Ur Specific [place] 1.010, Urine Protein Negative, Urine Glucose (UA) Normal, Urine Ketones Negative, Urine Occult Blood 10 H, Urine Nitrite Negative, Urine Bilirubin Negative, Urine Urobilinogen Normal, Ur Leukocyte Esterase Negative, Urine RBC 0 SEEN, Urine WBC 0 SEEN, Ur Squamous Epith Cells 0 SEEN, Urine Bacteria 0 SEEN, Urine Mucus 0 SEEN 03/17/25 05:47: WBC 11.5 H, RBC 5.40, Hgb 15.2, Hct 43.5, MCV 80.6, MCH 28.1, MCHC 34.9, RDW Std Deviation 38.0, RDW Coeff of Ghulam 13.2, Plt Count 242, MPV 10.7, Immature Gran % (Auto) 0.400, Neut % (Auto) 83.5 H, Lymph % (Auto) 12.9 L, [place] % (Auto) 3.1, Eos % (Auto) 0.0, Baso % (Auto) 0.1, Absolute Neuts (auto) 9.6 H, Absolute Lymphs (auto) 1.48, Nucleated RBC % 0, Sodium 138, Potassium 4.0, Chloride 105, Carbon Dioxide 19.5 L, Anion Gap 13, BUN 9, Creatinine 0.92, Estim Creat Clear Calc 130.43, Est GFR (MDRD) Non-Af 101, BUN/Creatinine Ratio 9.9 L, Glucose 125 H, Calcium 9.0, Total Bilirubin 1.56 H, Direct Bilirubin 0.91 H, AST 618 H, ALT 865 H, Alkaline Phosphatase 72, Total Protein 6.8, Albumin 4.2, Globulin 2.6 Radiography Diagnostic Testing: Radiology Impression Gallbladder Ultrasound 03/16/25 10:30 IMPRESSION: 1. Enlarged hyperechoic liver, suggesting hepatic steatosis, although other diffuse liver diseases can have this appearance. 2. Hypoechoic lesion in the right liver. A follow-up liver protocol CT or MRI is recommended to further evaluate. 3. Cholelithiasis without signs of acute cholecystitis. 4. Findings suggesting gallbladder adenomyomatosis. 5. Distended common bile duct, without an obstructing lesion seen. Reading Location: [id number] Abdomen/Pelvis CT 03/16/25 12:05 IMPRESSION: Fatty liver. Well-defined lesion right lobe of liver favor focal nodular hyperplasia. Follow-up MR of the abdomen with Eovist in 4-6 months to confirm stability possibly helpful. Reading Location: [facility] C-Arm Fluoroscopy 03/16/25 15:55 IMPRESSION: Intraoperative fluoroscopy status post ERCP, as above. Reading Location: [facility] ERCP X-Ray 03/16/25 15:55 IMPRESSION: Intraoperative fluoroscopy status post ERCP, as above. Reading Location: [facility] Rhythm Strip Rhythm Strip: Sinus Rhythm Rate: 76 Ectopy: None Physical Exam Narrative Seen and examined. Abdominal pain has improved but is still mild epigastric/RUQ discomfort. Liver chemistry shows mild increase in transaminases after ERCP. No fever. Physical exam: General: Alert, Oriented x3, Cooperative. BMI 25.7 kg/m² HEENT: Atraumatic, PERRLA, EOMI, Normocephalic. Oral: Oral mucosa dry. No Gingival or Mucosal Lesions/ Ulcerations Neck: Supple, No JVD, Negative Carotid Bruits Chest wall/Lungs: Air entry equal in bilateral lung bases. No crepitation/rhonchi Cardiovascular: Regular rate and rhythm, Normal S1,S2, No M/G/R Abdomen: Bowel Sounds sluggish, Soft, mild tenderness right upper quadrant and epigastric region. No distention : No dysuria. No renal angle tenderness. No suprapubic tenderness. Extremities: No edema, Capillary Refill Less than 3 Seconds Skin: No rashes, No breakdown Musculoskeletal: No Tenderness to Palpation of Joints or Extremities Neurological: Cranial nerves II-XII grossly intact, DTR 2+/4. No acute focal neurological deficit. Psych/Mental Status: Normal Affect, Appropriate. Assessment & Plan Assessment/Plan (1) Cholelithiasis with acute on chronic cholecystitis: PLAN: Plan 49-year-old gentleman came to ED with right upper and epigastric abdominal pain since 1:30 AM today with nausea. 1. Acute on chronic GB colic with cholelithiasis with suspicion of choledocholithiasis: Patient is being admitted to [facility] floor. RUQ sonogram shows cholelithiasis without signs of acute cholecystitis. 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 GB reported normal in size with multiple stones, wall thickness 1.6 cm with echogenic intraluminal foci present, comet artifact suggesting of GB adenomyomatosis. No pericholecystic fluid. Clinically patient does not have fever, leukocytosis therefore suspicion of acute cholecystitis less likely. Dr. Sarah consulted for ERCP. I discussed with surgeon Dr. Philip and she states she will follow peripherally but will need follow-up in surgery office for interval cholecystectomy as there is a big stone with possible central trapped air as seen on CT scan. 03/17: Discussed with the surgeon. Plan for office follow-up in 2 weeks after discharge. As transaminases are elevated but total bilirubin same probably mild irritation due to ERCP therefore we will keep the patient today. Continue IV antibiotic. Clear liquid, advance as per tolerated to full and soft diet. The patient does not seem to have cholecystitis features either clinically or radiologically. Mild increase in WBC count probably after reactive ERCP. ERCP on 03/16 Impression: - The entire main bile duct was moderately dilated, with a stone causing an obstruction. - Choledocholithiasis was found. Partial removal was accomplished with biliary sphincterotomy; a stent was inserted. - A biliary sphincterotomy was performed. - The biliary tree was swept. - One temporary stent was placed into the common bile duct. 2. Suspected Acute liver injury from cholelithiasis/and suspected choledocholithiasis: No previous lab to compare. Total bili 1.6, TB 0.73 AST 525, ALT 370, ALP normal. Lipase 50. 3. Liver lesion suspected benign lesion focal nodular hyperplasia and diffuse hepatic steatosis/MASLD/MASH: Ultrasound shows hypoechoic lesion in the right liver for which CT triple phase was done. It shows focal lesion right lobe of liver which enhance on the arterial image with partially fills on delayed images. There is central area with diminished enhancement. Lesion had similar enhancement to remainder of the liver on delayed images. It favors more focal nodular hyperplasia. Liver ultrasound shows enlarged hyperechoic liver suggestive of hepatic steatosis 03/17: Focal nodular hyperplasia explained to the patient and his . Benign developmental malformation liver lesion. 4. Unknown past medical history but patient denies hypertension or diabetes mellitus. He does not have PCP. Never smoker. Does not drink alcohol. No substance use. 03/17: Explained to the patient advised that he needs to establish PCP. 5. DVT prophylaxis, moderate risk on Lovenox 40 mg subcu daily Living will/advanced directive/end of life care: Patient does not have living will or advanced directive. After discussion of benefits/risks procedures involved with full code, DNR CC arrest and DNR CC, the patient opted for full code. Patient does want artificial life support including intubation, tube feed, ventilator and/chest compression, central venous catheter, vasopressor and DC shock if needed Total time spent in [id number] encounter in discussion of advanced directive 17 minutes. Laboratory Results 03/16/25 09:54: WBC 9.0, RBC 5.93, Hgb 17.0 H, Hct 48.0, MCV 80.9, MCH 28.7, MCHC 35.4, RDW Std Deviation 37.0, RDW Coeff of Ghulam 12.7, Plt Count 237, MPV 10.6, Immature Gran % (Auto) 0.400, Neut % (Auto) 75.9 H, Lymph % (Auto) 17.5 L, [place] % (Auto) 4.8, Eos % (Auto) 1.0, Baso % (Auto) 0.4, Absolute Neuts (auto) 6.8, Absolute Lymphs (auto) 1.58, Nucleated RBC % 0, PT 13.3, INR 1.0, Sodium 138, Potassium 4.2, Chloride 104, Carbon Dioxide 20.3 L, Anion Gap 14, BUN 13, Creatinine 1.02, Estim Creat Clear Calc 102.77, Est GFR (MDRD) Non-Af 90, BUN/Creatinine Ratio 13.1, Glucose 118 H, Calcium 10.4, Total Bilirubin 1.60 H, Direct Bilirubin 0.73 H, AST 525 H, ALT 370 H, Alkaline Phosphatase 64, Total Protein 7.5, Albumin 4.7, Globulin 2.9, Albumin/Globulin Ratio 1.6, Lipase 50 03/16/25 10:37: Urine Color Yellow, Urine Clarity Sl. Cloudy, Urine pH 6.0, Ur Specific [place] 1.010, Urine Protein Negative, Urine Glucose (UA) Normal, Urine Ketones Negative, Urine Occult Blood 10 H, Urine Nitrite Negative, Urine Bilirubin Negative, Urine Urobilinogen Normal, Ur Leukocyte Esterase Negative, Urine RBC 0 SEEN, Urine WBC 0 SEEN, Ur Squamous Epith Cells 0 SEEN, Urine Bacteria 0 SEEN, Urine Mucus 0 SEEN Laboratory Results 03/16/25 09:54: PT 13.3, INR 1.0, Direct Bilirubin 0.73 H 03/17/25 05:47: WBC 11.5 H, RBC 5.40, Hgb 15.2, Hct 43.5, MCV 80.6, MCH 28.1, MCHC 34.9, RDW Std Deviation 38.0, RDW Coeff of Ghulam 13.2, Plt Count 242, MPV 10.7, Immature Gran % (Auto) 0.400, Neut % (Auto) 83.5 H, Lymph % (Auto) 12.9 L, [place] % (Auto) 3.1, Eos % (Auto) 0.0, Baso % (Auto) 0.1, Absolute Neuts (auto) 9.6 H, Absolute Lymphs (auto) 1.48, Nucleated RBC % 0, Sodium 138, Potassium 4.0, Chloride 105, Carbon Dioxide 19.5 L, Anion Gap 13, BUN 9, Creatinine 0.92, Estim Creat Clear Calc 130.43, Est GFR (MDRD) Non-Af 101, BUN/Creatinine Ratio 9.9 L, Glucose 125 H, Calcium 9.0, Total Bilirubin 1.56 H, Direct Bilirubin 0.91 H, AST 618 H, ALT 865 H, Alkaline Phosphatase 72, Total Protein 6.8, Albumin 4.2, Globulin 2.6 Clinical Impression(s) from Imaging Studies Gallbladder Ultrasound 03/16/25 10:30 IMPRESSION: 1. Enlarged hyperechoic liver, suggesting hepatic steatosis, although other diffuse liver diseases can have this appearance. 2. Hypoechoic lesion in the right liver. A follow-up liver protocol CT or MRI is recommended to further evaluate. 3. Cholelithiasis without signs of acute cholecystitis. 4. Findings suggesting gallbladder adenomyomatosis. 5. Distended common bile duct, without an obstructing lesion seen. Abdomen/Pelvis CT 03/16/25 12:05 IMPRESSION: Fatty liver. Well-defined lesion right lobe of liver favor focal nodular hyperplasia. Follow-up MR of the abdomen with Eovist in 4-6 months to confirm stability possibly helpful. Reading Location: [id number] Charges/Coding Visit Charges Inpatient E&M: 13831 Subs Hosp L2
[2025-03-17 08:01] VITALS: BP 113/76; PULSE 67; RESP 16; TEMP 36.6; O2SAT 98
--- NOTE | 2025-03-17 08:16 | CASEMGMT ---
Addendum entered by María Smart 03/17/25 11:12: GIOVANNI SEGUNDO to room. Pt sitting up in chair. in room visiting. Pt and provided w/local Physician's Directory. Also made aware of [facility] as an option. Pt and state they are aware of [facility] and pt states he may consider going there if unable to get in with another PCP early enough. They voice appreciation for info. Original Note: GIOVANNI SEGUNDO NOTE: Dx: GB colic pain Strata: 1 6 click: 24 No CM consult ordered. PT/OT ordered, but per PT/OT assessment notes & chart review, pt is up ad ines and PT/OT assessments deferred. Noted no PCP listed in [facility]. GIOVANNI SEGUNDO will f/u with pt today re: this. Medical record reviewed and patient evaluated for identification of discharge planning needs. Patient does not currently demonstrate a need for discharge planning by GIOVANNI SEGUNDO. CM will continue to be available for any discharge needs that may arise, and intervene as indicated. Abhijit RODRIGUEZ RN, CM
[2025-03-17] MEDS: FLU VACCINE 2025-26(6MOS UP) 45 MCG/0.5 ML SYRINGE IM (09:14)
[2025-03-17 11:34] VITALS: BP 105/63; PULSE 67; RESP 16; TEMP 36.8; O2SAT 97
[2025-03-17 15:08] VITALS: BP 96/67; PULSE 65; RESP 16; TEMP 36.6; O2SAT 98
[2025-03-17 22:33] VITALS: BP 108/69; PULSE 66; RESP 18; TEMP 36.7; O2SAT 98
[2025-03-18 03:48] VITALS: BP 108/70; PULSE 64; RESP 15; TEMP 36.7; O2SAT 96
[2025-03-18 04:58] LABS: AST(SGOT) 222 U/L (<=37); Alanine Aminotransfer ALT/SGPT 573 U/L (<=46); Albumin, Serum 3.9 g/dL (3.5-5.0); Alkaline Phosphatase 65 U/L (40-129); Bilirubin, Direct 0.40 mg/dL (0.00-0.30); Globulin 2.7 g/dL (2.2-4.2)
[2025-03-18] MEDS: Piperacil/Tazobactam 3.375 GM in 0.9% Normal Saline (50mL MB+) 50 ML IV (05:49)
[2025-03-18] MEDS: 0.9% Saline Lock 10 ML Syringe IV (05:50)
[2025-03-18] MEDS: 0.9% Normal Saline (250mL Bag) 250 ML 15 ML IV (05:54)
[2025-03-18 06:00] VITALS: BMI 26.0
[2025-03-18 08:07] VITALS: BP 117/78; PULSE 70; RESP 18; TEMP 36.9; O2SAT 96
--- NOTE | 2025-03-18 09:35 | DCINST_ITS ---
Discharge Instructions DC O2, CPAP, BIPAP needs Home O2 Discharge instructions: No Follow Up Care Test Results: Test results from this visit will be discussed in further detail at your follow- up appointment, if applicable. Discharge Plan Admission Admit Date/Time: 03/16/25 12:53 Attending Provider: Jose Guadalupe Puckett Primary Care Provider: Care Physician,No Primary Consulting Providers: Jose Guadalupe Puckett; Yevgeniy Sarah; Karlee Green; Apolonia Pavon; Shira Alex Instructions Additional Instructions / Restrictions: Advised [id number] Tylenol 500 mg to 1000 mg Q6 hourly as needed for fever more than 102 Fahrenheit and moderate to severe pain respectively. [id number], probiotic, lactobacillus/acidophilus 1 tablet twice daily for 7 days. Discharge Orders/Prescriptions Prescriptions: New sennosides-docusate sodium [Stimulant Laxative Plus] 8.6-50 mg Tablet 2 tab PO BID PRN PRN (Reason: Constipation) Qty: 0 0RF amoxicillin-pot clavulanate 875-125 mg tablet 1 tab PO BID Qty: 10 0RF Referrals / Follow Up: Yevgeniy Sarah DO [Med Staff - Active Staff, Gastroenterology] - Within 1 Month Abbie Philip MD [Med Staff - Active Staff, General Surgery] - Within 1 Week Care Physician,No Primary [Primary Care Provider, Medical] Disposition Disposition (needs filled in before D/C Order can be placed): Home, Self Care
--- NOTE | 2025-03-18 09:40 | PCM.DC.SUM ---
Providers Date of Admission: 03/16/25 Date of Discharge: 03/18/25 Primary Care Physician: Judy Primary Care Phys Consultations 03/16/25 13:32 Consult: Gastroenterology Routine Consulting Provider: Saad Gastroenterology Reason for Consult: choledocholithiasis EMERGENT Consult: No MD Notified: Yes Date Notified: 03/16/25 Time Notified: 13:14 Method of Notification: ED Physician Initiated Reason For Visit: GB COLIC PAIN Diagnosis Discharge Diagnosis (1) Cholelithiasis with acute on chronic cholecystitis: Status: Acute Code(s): K80.12 - Calculus of gallbladder with acute and chronic cholecystitis without obstruction Plan 49-year-old gentleman came to ED with right upper and epigastric abdominal pain since 1:30 AM today with nausea. 1. Acute on chronic GB colic with cholelithiasis with suspicion of choledocholithiasis: [facility] RUQ sonogram shows cholelithiasis without signs of acute cholecystitis. 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 GB reported normal in size with multiple stones, wall thickness 1.6 cm with echogenic intraluminal foci present, comet artifact suggesting of GB adenomyomatosis. No pericholecystic fluid. Clinically patient does not have fever, leukocytosis therefore suspicion of acute cholecystitis less likely. Dr. Sarah consulted for ERCP. I discussed with surgeon Dr. Philip and she states she will follow peripherally but will need follow-up in surgery office for interval cholecystectomy as there is a big stone with possible central trapped air as seen on CT scan. 03/17: Discussed with the surgeon. Plan for office follow-up in 2 weeks after discharge. As transaminases are elevated but total bilirubin same probably mild irritation due to ERCP therefore we will keep the patient today. Continue IV antibiotic. Clear liquid, advance as per tolerated to full and soft diet. The patient does not seem to have cholecystitis features either clinically or radiologically. Mild increase in WBC count probably after reactive ERCP. ERCP on 03/16 Impression: - The entire main bile duct was moderately dilated, with a stone causing an obstruction. - Choledocholithiasis was found. Partial removal was accomplished with biliary sphincterotomy; a stent was inserted. - A biliary sphincterotomy was performed. - The biliary tree was swept. - One temporary stent was placed into the common bile duct. 03/18: Abdominal pain/discomfort minimal with some sore throat from ERCP. Able to tolerate full liquid diet advance to soft diet. Follow-up with Dr. Philip in 1 week. Follow-up in GI office/Dr. Leiva in 1 month. Liver chemistry shows improvement in AST and ALT. Total bilirubin 0.85, direct 0.41 normal range ALP 65 normal. Empirically patient discharged on 5 more days of Augmentin to complete a 1 week of antibiotic. Advised OTC Tylenol and probiotic admission discharge instructions. 2. Suspected Acute liver injury from cholelithiasis/and suspected choledocholithiasis: No previous lab to compare. Total bili 1.6, TB 0.73 AST 525, ALT 370, ALP normal. Lipase 50. 03/18: Liver chemistry including TB shows improvement 3. Liver lesion suspected benign lesion focal nodular hyperplasia and diffuse hepatic steatosis/MASLD/MASH: Ultrasound shows hypoechoic lesion in the right liver for which CT triple phase was done. It shows focal lesion right lobe of liver which enhance on the arterial image with partially fills on delayed images. There is central area with diminished enhancement. Lesion had similar enhancement to remainder of the liver on delayed images. It favors more focal nodular hyperplasia. Liver ultrasound shows enlarged hyperechoic liver suggestive of hepatic steatosis 03/17: Focal nodular hyperplasia explained to the patient and his . Benign developmental malformation liver lesion. 03/18 follow-up in GI office after month. 4. Unknown past medical history but patient denies hypertension or diabetes mellitus. He does not have PCP. Never smoker. Does not drink alcohol. No substance use. 03/17: Explained to the patient advised that he needs to establish PCP. 5. DVT prophylaxis, moderate risk on Lovenox 40 mg subcu daily Living will/advanced directive/end of life care: Patient does not have living will or advanced directive. After discussion of benefits/risks procedures involved with full code, DNR CC arrest and DNR CC, the patient opted for full code. Patient does want artificial life support including intubation, tube feed, ventilator and/chest compression, central venous catheter, vasopressor and DC shock if needed Total time spent in [id number] encounter in discussion of advanced directive 17 minutes. Discharge medication reconciliation done. Discharge follow-up instructions completed. Discharge process discussed with the patient and all questions were answered to patient's satisfaction. Follow with PCP in 1 to 2 weeks Total time spent, exact 35 minutes on discharge meds reconciliation, examination, coordination of care with nurses and ancillary staff, review of imaging and blood test and discussion with the patient on follow-up instructions. Laboratory Results 03/16/25 09:54: WBC 9.0, RBC 5.93, Hgb 17.0 H, Hct 48.0, MCV 80.9, MCH 28.7, MCHC 35.4, RDW Std Deviation 37.0, RDW Coeff of Ghulam 12.7, Plt Count 237, MPV 10.6, Immature Gran % (Auto) 0.400, Neut % (Auto) 75.9 H, Lymph % (Auto) 17.5 L, [place] % (Auto) 4.8, Eos % (Auto) 1.0, Baso % (Auto) 0.4, Absolute Neuts (auto) 6.8, Absolute Lymphs (auto) 1.58, Nucleated RBC % 0, PT 13.3, INR 1.0, Sodium 138, Potassium 4.2, Chloride 104, Carbon Dioxide 20.3 L, Anion Gap 14, BUN 13, Creatinine 1.02, Estim Creat Clear Calc 102.77, Est GFR (MDRD) Non-Af 90, BUN/Creatinine Ratio 13.1, Glucose 118 H, Calcium 10.4, Total Bilirubin 1.60 H, Direct Bilirubin 0.73 H, AST 525 H, ALT 370 H, Alkaline Phosphatase 64, Total Protein 7.5, Albumin 4.7, Globulin 2.9, Albumin/Globulin Ratio 1.6, Lipase 50 03/16/25 10:37: Urine Color Yellow, Urine Clarity Sl. Cloudy, Urine pH 6.0, Ur Specific [place] 1.010, Urine Protein Negative, Urine Glucose (UA) Normal, Urine Ketones Negative, Urine Occult Blood 10 H, Urine Nitrite Negative, Urine Bilirubin Negative, Urine Urobilinogen Normal, Ur Leukocyte Esterase Negative, Urine RBC 0 SEEN, Urine WBC 0 SEEN, Ur Squamous Epith Cells 0 SEEN, Urine Bacteria 0 SEEN, Urine Mucus 0 SEEN Laboratory Results 03/16/25 09:54: PT 13.3, INR 1.0, Direct Bilirubin 0.73 H 03/17/25 05:47: WBC 11.5 H, RBC 5.40, Hgb 15.2, Hct 43.5, MCV 80.6, MCH 28.1, MCHC 34.9, RDW Std Deviation 38.0, RDW Coeff of Ghulam 13.2, Plt Count 242, MPV 10.7, Immature Gran % (Auto) 0.400, Neut % (Auto) 83.5 H, Lymph % (Auto) 12.9 L, [place] % (Auto) 3.1, Eos % (Auto) 0.0, Baso % (Auto) 0.1, Absolute Neuts (auto) 9.6 H, Absolute Lymphs (auto) 1.48, Nucleated RBC % 0, Sodium 138, Potassium 4.0, Chloride 105, Carbon Dioxide 19.5 L, Anion Gap 13, BUN 9, Creatinine 0.92, Estim Creat Clear Calc 130.43, Est GFR (MDRD) Non-Af 101, BUN/Creatinine Ratio 9.9 L, Glucose 125 H, Calcium 9.0, Total Bilirubin 1.56 H, Direct Bilirubin 0.91 H, AST 618 H, ALT 865 H, Alkaline Phosphatase 72, Total Protein 6.8, Albumin 4.2, Globulin 2.6 Clinical Impression(s) from Imaging Studies Gallbladder Ultrasound 03/16/25 10:30 IMPRESSION: 1. Enlarged hyperechoic liver, suggesting hepatic steatosis, although other diffuse liver diseases can have this appearance. 2. Hypoechoic lesion in the right liver. A follow-up liver protocol CT or MRI is recommended to further evaluate. 3. Cholelithiasis without signs of acute cholecystitis. 4. Findings suggesting gallbladder adenomyomatosis. 5. Distended common bile duct, without an obstructing lesion seen. Abdomen/Pelvis CT 03/16/25 12:05 IMPRESSION: Fatty liver. Well-defined lesion right lobe of liver favor focal nodular hyperplasia. Follow-up MR of the abdomen with Eovist in 4-6 months to confirm stability possibly helpful. Reading Location: [id number] Medications at Discharge Home Medications amoxicillin 875 mg-potassium clavulanate 125 mg tablet 1 tab PO BID #10 tabs 03/18/25 sennosides 8.6 mg-docusate sodium 50 mg tablet (Stimulant Laxative Plus) 2 tab PO BID PRN PRN Constipation #0 tabs 03/18/25 Hospital Course Summary of Care Provided Hospital Course: Laboratory Results 03/18/25 03:29: Total Bilirubin 0.85, Direct Bilirubin 0.40 H, AST 222 H, ALT 573 H, Alkaline Phosphatase 65, Total Protein 6.5, Albumin 3.9, Globulin 2.7 Clinical Impression(s) from Imaging Studies Gallbladder Ultrasound 03/16/25 10:30 IMPRESSION: 1. Enlarged hyperechoic liver, suggesting hepatic steatosis, although other diffuse liver diseases can have this appearance. 2. Hypoechoic lesion in the right liver. A follow-up liver protocol CT or MRI is recommended to further evaluate. 3. Cholelithiasis without signs of acute cholecystitis. 4. Findings suggesting gallbladder adenomyomatosis. 5. Distended common bile duct, without an obstructing lesion seen. Reading Location: [id number] Abdomen/Pelvis CT 03/16/25 12:05 IMPRESSION: Fatty liver. Well-defined lesion right lobe of liver favor focal nodular hyperplasia. Follow-up MR of the abdomen with Eovist in 4-6 months to confirm stability possibly helpful. Reading Location: [id number] C-Arm Fluoroscopy 03/16/25 15:55 IMPRESSION: Intraoperative fluoroscopy status post ERCP, as above. Reading Location: [id number] ERCP X-Ray 03/16/25 15:55 IMPRESSION: Intraoperative fluoroscopy status post ERCP, as above. Reading Location: [id number] Physical Exam Narrative Seen and examined. Abdominal pain has improved but is still mild epigastric/RUQ discomfort and with mild sore throat from ERCP. Liver chemistry shows improvement in transaminases. T. bili and ALP normal. No fever. Tolerated soft liquid Physical exam: General: Alert, Oriented x3, Cooperative. BMI 25.7 kg/m² HEENT: Atraumatic, PERRLA, EOMI, Normocephalic. Oral: Oral mucosa dry. No Gingival or Mucosal Lesions/ Ulcerations Neck: Supple, No JVD, Negative Carotid Bruits Chest wall/Lungs: Air entry equal in bilateral lung bases. No crepitation/rhonchi Cardiovascular: Regular rate and rhythm, Normal S1,S2, No M/G/R Abdomen: Bowel Sounds sluggish, Soft, mild discomfort over right upper quadrant and epigastric region. No distention : No dysuria. No renal angle tenderness. No suprapubic tenderness. Extremities: No edema, Capillary Refill Less than 3 Seconds Skin: No rashes, No breakdown Musculoskeletal: No Tenderness to Palpation of Joints or Extremities Neurological: Cranial nerves II-XII grossly intact, DTR 2+/4. No acute focal neurological deficit. Psych/Mental Status: Normal Affect, Appropriate. Weight / BMI Weight Weight: 236 lb 5.369 oz Body Mass Index (BMI) 26.0 ABG / Lab / Microbiology Data 03/17/25 05:47 03/17/25 05:47 Laboratory: Laboratory Results - last 24 hr 03/18/25 03:29: Total Bilirubin 0.85, Direct Bilirubin 0.40 H, AST 222 H, ALT 573 H, Alkaline Phosphatase 65, Total Protein 6.5, Albumin 3.9, Globulin 2.7 D/C Instructions DC O2, CPAP, BIPAP Needs Home O2 Discharge instructions: No Meaningful Use Info Meaningful Use Meaningful Use Diagnoses (Choose all that apply): None applicable Discharge Plan Admission Admit Date/Time: 03/16/25 12:53 Primary Reason for Your Visit: Acute on chronic GB colic with cholelithiasis and choledocholithiasis Attending Provider: Jose Guadalupe Puckett Primary Care Provider: Care Physician,No Primary Consulting Providers: Jose Guadalupe Puckett; Yevgeniy Sarah; Karlee Green; Apolonia Pavon; Shira Alex Instructions Additional Instructions / Restrictions: Advised [id number] Tylenol 500 mg to 1000 mg Q6 hourly as needed for fever more than 102 Fahrenheit and moderate to severe pain respectively. [id number], probiotic, lactobacillus/acidophilus 1 tablet twice daily for 7 days. Discharge Orders/Prescriptions Prescriptions: New sennosides-docusate sodium [Stimulant Laxative Plus] 8.6-50 mg Tablet 2 tab PO BID PRN PRN (Reason: Constipation) Qty: 0 0RF amoxicillin-pot clavulanate 875-125 mg tablet 1 tab PO BID Qty: 10 0RF Referrals / Follow Up: Yevgeniy Sarah DO [Med Staff - Active Staff, Gastroenterology] - Within 1 Month Abbie Philip MD [Med Staff - Active Staff, General Surgery] - Within 1 Week Care Physician,No Primary [Primary Care Provider, Medical] Disposition Disposition (needs filled in before D/C Order can be placed): Home, Self Care Charges/Coding Visit Charges Inpatient E&M: 73781 Disch Hosp >30min
[2025-03-18 09:47] VITALS: O2SAT 96
--- NOTE | 2025-03-18 12:37 | NURSING ---
Pt and given discharge instructions including medications, follow up appointments and all other discharge instructions. pt denies any further questions or needs at this time. iv removed with catheter intact, clean dry dressing applied, pt tolerated well. pt getting dressed and walking out with his .
[2025-03-20 08:56] VITALS: BP 95/52; PULSE 76; RESP 16; TEMP 36.5; O2SAT 93
== END 2025-03-18 12:45 | disposition home or self-care (01) | DRG 446 ==
LOC: ED 12:10 → MS3 13:44
PROVIDERS: Internal Medicine Gastroenterology; Admitting Provider Family Medicine; Emergency Provider Emergency Medicine; Visit Provider Internal Medicine
PROC: 0FC98ZZ Extirpation of Matter from Common Bile Duct, Via Natural or Artificial Opening Endoscopic (ICD-10-PCS; CPT 43260; principal; 2025-03-16 15:10)
DX: K80.12 Calculus of gallbladder with acute and chronic cholecystitis without obstruction (principal); K83.8 Other specified diseases of biliary tract; Z51.5 Encounter for palliative care; Z66 Do not resuscitate; K76.0 Fatty (change of) liver, not elsewhere classified; K21.9 Gastro-esophageal reflux disease without esophagitis
CPT/HCPCS: 36415; 74178; 74328; 76000; 76705; 80048; 80053; 80076; 81001; 82248; 83690; 85025; 85610; 93005; 94668; 99284; C2625; Q9967; A4216; J2405

== ENCOUNTER 2025-04-04 12:19 | Day surgery (SDC) | payer OTHER, SELFPAY ==
[2025-04-04] VITALS (11 sets, daily range): BP systolic 110–140; BP diastolic 62–88; PULSE 73–85; RESP 16; TEMP 36.1–36.6; O2SAT 16–98; BMI 34.9
--- NOTE | 2025-04-04 11:54 | PCM.HP.BLA ---
History and Physical Date of Admission: 04/04/25 Date of Service: 03/23/25 MR#: [id number] Acct: [id number] Name: ALONDRA ARITA Rep #: [id number] : 1975 Provider: Dr. Abbie Philip MD Age/Sex: 49/M Location: [facility] Status: Signed Intake Vital Signs 03/16/2513:04 03/23/2508:49 Height 6 ft 8 in 5 ft 7 in Weight: 231 lb 8 oz BMI 36.2 BP 108/74 Blood Pressure Location Rt brachial Position Sitting Respiration 18 Pulse 78 Pulse Source Monitor Temp 97.2 F L Temp Source Temporal Pulse Oximetry (%) 99 Oxygen Delivery Method room air Intake Visit Reasons: DISCUSS LAP/ROBOTIC CYNDIE Chief Complaint: discuaa cholecystectomy Is patient in pain?: Yes (epigastric ) Allergies No Known Allergies Allergy (Verified 03/23/25 08:51) PFSH Medical History (Updated 03/23/25 @ 16:[address] Abbie Philip MD) Nausea Abdominal pain GERD (gastroesophageal reflux disease) Social History (Updated 03/23/25 @ 08:49 by Kate Lock LPN) Smoking Status: Never smoker alcohol intake: never substance use type: does not use HPI HPI HPI: 49-year-old male presents for cholelithiasis status post ERCP due to choledocholithiasis. Patient was hospitalized mid last week was found to have choledocholithiasis. Patient currently states he still has about a 2/10 discomfort epigastric/right upper quadrant. Patient states it does get worse with eating however he is following a low-fat diet. Patient states previous to coming in he was having reflux daily with burning of the esophagus. Patient is currently not on any PPIs. Patient CT abdomen pelvis did show a large gallstone in the gallbladder and his ERCP showed a couple small stones still in the cystic duct. Patient did have some elevation in liver profile which did improve during hospitalization. ROS General General: No weight change, appetite, fatigue, colon cancer, breast cancer or weakness HEENT HEENT: No difficulty swallowing, eye injury, eye surgery, swollen glands or hoarseness Endo Endocrine: No thyroid disease, diabetes mellitus, thyroid cancer, Hair loss, heat intolerance or cold intolerance Skin Skin: No rash or changing moles Musc Musculoskeletal: No back problems, arthritis, rheumatoid arthritis, gout or joint pain Cardio Cardiovascular: No murmur, pacemaker, heart disease, atrial fibrillation, high blood pressure, heart attack, heart stent, palpitations, shortness of breath with exertion or chest pain Psych Psychiatric: No depression, anxiety or hearing voices Resp Respiratory: No shortness of breath, No sleep apnea, No cough, No COPD, No asthma, No emphysema and No wheezing Gastro Gastrointestinal: Yes abdominal pain, Yes nausea or vomiting, No diarrhea, No constipation, No blood in stool, No acid reflux, No hemorrhoids, No ulcers, Yes gallbladder problem and No black,tarry stools Juan Antonio Hematologic: No blood thinners, No blood disorders, No bleeding, No anemia and No blood clots Neuro Neurologic: No numbness, No tingling and No weakness Exam Const General: cooperative, healthy appearing, comfortable and no acute distress HENMT Head: normocephalic and atraumatic Neck Neck: supple Resp Effort & Inspection: normal respiratory effort Cardio Rate: regular rate GI Inspection: non-distended Palpation: soft, and nontender (Unable to produce tenderness on exam) Skin General: no rashes or lesions noted Neuro General: CN's II-XI intact bilaterally Extrem General: normal to inspection Psych Mental Status: mental status grossly normal Attitude: cooperative Assessment and Plan Assessment and Plan (1) Cholelithiasis: Status: Acute (2) GERD (gastroesophageal reflux disease): Status: Acute Medications: New omeprazole swallow whole; do not crush, chew, dissolve, cut, break 40 mg PO QDAY 30 caps 3RF Discontinued amoxicillin-pot clavulanate 875-125 mg Discontinued Reason: Pt no longer taking 1 TAB PO BID 10 tabs 0RF sennosides-docusate sodium 8.6-50 mg (Stimulant Laxative Plus) Discontinued Reason: Pt no longer taking 2 tabs PO BID PRN PRN 0 tabs 0RF Constipation Plan Patient is currently not on a PPI we will send a prescription for omeprazole. Reviewed the anatomy with the patient and discussed the procedure: Robotic/laparoscopic cholecystectomy with possible cholangiograms, possible open. Review risks including but not limited to bleeding, infection, hernia, bile leak, retained gallstones requiring another procedure ERCP- Endoscopic Retrograde Cholangiopancreatography, injury to another organ (bile ducts, common bile duct, small bowel, etc.) and conversion to an open procedure. All questions were answered. Abbie Philip M.D. Pager: [phone] [facility] [address] [place] [address], [facility], [address] [place] [address] Office: [phone] Coding Level of Care Code Off vis,new,level 3 Diagnoses Cholelithiasis K80.20 GERD (gastroesophageal reflux disease) K21.9 03/23/25 1615 <Electronically signed by Abbie Philip MD> Date Abbie Philip MD
[2025-04-04] MEDS: Lactated Ringers 1,000 ML 15 ML IV (12:53)
[2025-04-04] MEDS: INDOCYANINE GREEN 3.75 MG in Syringe 1.5 ML 999 MG IV (12:54)
--- NOTE | 2025-04-04 13:04 | PCM.PRE.AN2 ---
ASA Classification* ASA Classification ASA Classification: 2 Assessment & Plan Anesthesia* Anesthesia Assessment Anesthesia Assessment: Discussed sedation and/or anesthesia options, risks, benefits, and alternatives with patient/parents/legal guardian/POA. Questions invited. The patient/parents/legal guardian/POA seems to understand and agrees to proceed with anesthesia plan. Reviewed the physical assessment, medical history, allergy history and patient home medications list prior to surgery/procedure/anesthetic and documented any changes. Performed airway and anesthesia risk assessments. Anesthesia Type Anesthesia Type: General History Source History Obtained from:: Patient and Chart Anesthesia Focused Assessment* Temperature: 97.8 F Pulse Rate: 76 Blood Pressure: 140/88 Respiratory Rate: 16 Pulse Ox: 98 Oxygen Delivery Method: Room Air Airway Assessment Mouth opens: >3 cm Mallampati Score: II Teeth Condition: Intact Neck Range of motion (ROM): Full ROM Labs Anesthesia Preop lab: CBC WBC, (4.4-11.0) 11.5 K/mm3 H 03/17/25, 05:47 RBC, (4.6-6.2) 5.40 M/mm3 03/17/25, 05:47 Hgb, (13.0-16.5) 15.2 g/dL 03/17/25, 05:47 Hct, (40-54) 43.5 % 03/17/25, 05:47 Plt Count, (150-450) 242 K/mm3 03/17/25, 05:47 CHEMISTRY Potassium, (3.3-5.1) 4.0 mmol/L 03/17/25, 05:47 Sodium, (133-145) 138 mmol/L 03/17/25, 05:47 BUN, (4-19) 9 mg/dL 03/17/25, 05:47 Creatinine, (0.70-1.20) 0.92 mg/dL 03/17/25, 05:47 Glucose, (70-99) 125 mg/dL H 03/17/25, 05:47 COAG PT, (11.7-14.9) 13.3 SECONDS 03/16/25, 09:54 Pre-Assessment Diagnosis/Proposed Procedure Planned Operative Procedure(s): (N/A) Robotic Cholecystectomy w/grams Anesthesia History 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 When Was Last Pacemaker Check QUESTION #4 FULL TEXT: You/Your Family Experience fever (hyperthermia) with Anesthesia Last Oral Intake Last Oral intake: Last Oral Intake NPO since 06:00 04/04/25 12:47 Meds taken in AM with sips of water? Meds patient instructed to take am of surgery PONV PONV - technical business systems analyst: PONV - technical business systems analyst Female No 03/29/25 09:18 HX of Motion Sickness Yes 03/29/25 09:18 HX of N/V After Surgery Yes 03/29/25 09:18 Non-Smoker Yes 03/29/25 09:18 Duration of Surgery greater No 03/29/25 09:18 than 60 minutes Number of Risk Factors 3 03/29/25 09:18 PONV Score Moderate Risk 03/29/25 09:18 Height & Weight Height & Weight: Anesthesia: Height & Weight Height 5 ft 7 in 04/04/25 12:47 Weight: 101 kg 04/04/25 12:47 Body Mass Index (BMI) 34.9 04/04/25 12:47 Respiratory Assessment Respiratory Assessment - technical business systems analyst: Respiratory Tract Infection Hx - technical business systems analyst Hx Respiratory Tract Infection No 03/29/25 09:18 STOP Sleep Apnea STOP Sleep Apnea - technical business systems analyst: STOP Sleep Apnea - technical business systems analyst Hx Hypertension No 03/29/25 09:18 Hx Sleep Apnea No 03/29/25 09:18 CPAP BIPAP Do you snore loudly (louder No 03/29/25 09:18 than talking or can be heard Do you often feel tired/ No 03/29/25 09:18 fatigued/ sleepy during daytime? Has anyone observed you stop No 03/29/25 09:18 breathing during sleep? STOP Results Negative 03/29/25 09:18 QUESTION #5 FULL TEXT : Do you snore loudly (louder than talking or can be heard through closed doors)? 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 Specify any problems Hx of Preganancy in last 3 N/A 03/29/25 09:18 Months Nurse Filling Out Transfusion NBUCHER 03/29/25 09:18 & Questions: Date: 03/29/25 03/29/25 09:18 Time: 09:19 03/29/25 09:18 Patient unable to answer at this time (ie. confused, unrespo /Reproduction History /Reproductive History - technical business systems analyst: /Reproductive Hx- technical business systems analyst Hx Now No 03/29/25 09:18 Gestational Age (in weeks): EDC: Hx Hx Para Hx Section SAB No 03/29/25 09:18 Active Medications Active Medications: Current Medications Generic Name Dose Route Start Last Admin Trade Name Freq PRN Reason Stop Dose Admin Indocyanine Green 3.75 mg/ N/A 1.5 mls @ 999 mls/hr 04/04/25 13:30 04/04/25 12:54 IV 04/04/25 13:31 999 mls/hr PREOP ONE Administration Cefazolin Sodium 2 gm/ Sodium 110 mls @ 200 mls/hr 04/04/25 14:00 Chloride IV 04/04/25 14:32 INTRAOP ONE Lactated Ringer's 1,000 mls @ 15 mls/hr 04/04/25 12:30 04/04/25 12:53 IV 15 mls/hr .Q48H DIA Administration PFSH Medical History Wears glasses Fatty liver Heartburn Gastric reflux Non-smoker Nausea Abdominal pain GERD (gastroesophageal reflux disease) Home Medications Medication Instructions Recorded Last Taken Type omeprazole 40 mg capsule,delayed 40 mg PO QDAY #30 caps 03/23/25 04/03/25 Rx release Allergy/AdvReac Type Severity Reaction Status Date / Time No Known Allergies Allergy Verified 04/04/25 12:23 Surgical History History of wisdom tooth extraction (~06/21/94) Hx of LASIK History of ERCP (03/16/25) Social History Smoking Status: Never smoker alcohol intake: never substance use type: does not use Review of Systems (Anesthesia) ROS Narrative System reviewed and no additional complaints, except as documented.
[2025-04-04 13:12] LABS: AST(SGOT) 30 U/L (<=37); Alanine Aminotransfer ALT/SGPT 44 U/L (<=46); Albumin, Serum 4.5 g/dL (3.5-5.0); Alkaline Phosphatase 58 U/L (40-129); Bilirubin, Direct 0.32 mg/dL (0.00-0.30); Globulin 3.2 g/dL (2.2-4.2)
[2025-04-04] MEDS: Midazolam 2 MG/2 ML Syringe IV (13:41)
[2025-04-04] MEDS: Cefazolin 1 GM/5 ML Vial 2 GM IV (13:45)
[2025-04-04] MEDS: fentaNYL 100 MCG/2 ML Ampul 150 MCG IV (13:46)
[2025-04-04] MEDS: Lidocaine 1% (5 ml sdv) 5 ML Vial IV (13:46)
--- NOTE | 2025-04-04 14:00 | GALL_PTH ---
PATIENT: ALONDRA ARITA [place] [facility] [place][id number] AGE/SX: 49/M ROOM: RE04/04/[address]: Dr. Abbie Philip MD : 1975 BED: DIS: 04/04/2025 SPEC #: [id number] RECD: 04/05/25 07:58 STATUS: TACO SEDRICK #: [id number] TUSHAR: 04/04/25 14:[address]: Abbie Philip DEPT: SURGICAL PATHOLOGY RECD BY: Eze Rodgers ENTERED: 04/05/25 10:44 SP TYPE: VALARIE GAVIN DR: No Primary Care Phys Tissues: A - Gallbladder, NOS Procedures: Surgery Specimen Level III HEADER OPERATION: Robotic cholecystectomy PRE-OP DIAGNOSIS: Cholelithiasis TISSUE SUBMITTED: A- Gallbladder MICROSCOPIC DIAGNOSIS A. Gallbladder, robotic cholecystectomy: * Acute and chronic cholecystitis * One benign lymph node * Cholelithiasis MICROSCOPIC DESCRIPTION Slides are reviewed. GROSS DESCRIPTION A. Received in formalin labeled with the patient's name and date of . Designated as "gallbladder" is a 7.4 x 3.5 x 2.5 cm pink-red, fatty and intact gallbladder with attached patent cystic duct (inked black, shaved). A lymph node is present. Opening reveals minimal, brown sludge-like bile and a 2.8 cm yellow, bosselated cholelith. The mucosa is williamson-pink to red granular and eroded with a maximum wall thickness of 0.4 cm. Focal cholesterolosis is present. Forestry Engineer sections are submitted in 2 cassettes as follows: A1: Margin, lymph node, lymph nodeA2: Cross-sections FL 04/05/2025 CPT:95868
[2025-04-04] MEDS: Lactated Ringers 2,000 ML 2000 ML IV (14:45)
--- NOTE | 2025-04-04 15:20 | PCM.OPRPT ---
Operative Report (Standard) Operative Information Date of Procedure: 04/04/25 Pre-Operative Diagnosis: Cholelithiasis Post-Operative Diagnosis: Cholelithiasis, hydrops of the gallbladder Surgery/Procedure Performed: Robotic cholecystectomy with attempted cholangiogram/ICG tandem mill operator: Yes Associate Team Physician: Sarah Beth Baumann Tasks completed by assistant branch manager: Opening & closing Type of Anesthesia: General/Supplemental RN Documented Start/Stop Times: Operation Date: 04/04/25 14:00 Case Time Into Pre-Op 04/04/25 12:23 Out of Pre-Op 04/04/25 13:37 Anesthesia Start 04/04/25 13:41 Into Room 04/04/25 13:41 Procedure Start 04/04/25 14:00 Procedure End 04/04/25 15:28 Anesthesia End 04/04/25 15:39 Out of Room 04/04/25 15:39 Into Recovery 04/04/25 15:40 Into Phase II Recovery 04/04/25 16:50 Out of Recovery 04/04/25 16:50 Out of Phase II 04/04/25 18:48 Procedure Start Time: 14:00 Procedure Stop Time: 15:28 Select all DRAINS/GRAFTS/IMPLANTS that apply: None Special Medications: Ancef 2 g IV x 1 Estimated Blood Loss: 20 cc Specimen collected: Yes Description of specimen(s) removed: Gallstone Description of surgery: Indications: this is a 49 year-old male who developed abdominal pain/nausea/vomiting had cholelithiasis and choledocholithiasis status post ERCP. Robotic cholecystectomy was elected. Description procedure: The patient was placed on operating table in supine position. A timeout was completed verifying correct patient, procedure, site, position and special equipment prior to beginning procedure. General Anesthesia was induced. The abdomen was prepped and draped in usual sterile fashion. An incision was made in the natural skin line below the umbilicus. The fascia was elevated and incised. The peritoneum was elevated and incised. Entry into the peritoneum was confirmed visually and no bowel was noted in the vicinity of the incision. Reynolds trocar was placed. The abdomen was insufflated with carbon dioxide to a pressure of 12-15 mmHg. Patient tolerated insufflation well. The laparoscope was then inserted and abdomen inspected. No injuries from initial trocar placement were noted. Additional trochars were then inserted in the following locations 8 mm trocar left upper quadrant and 2 more 8 mm trochars in right lower quadrant and left lower quadrant. The abdomen was inspected no abnormalities were found. The table is placed in reverse Trendelenburg position with the right side up. Robot was docked. The adhesions between the gallbladder and omentum were taken down carefully. The dome of the gallbladder was grasped with atraumatic grasper passed through the lateral port and retracted over the dome of the liver. Infundibulum was then grasped with atraumatic grasper through the midclavicular port and retracted to the right lower quadrant. There were dense adhesions at the area of the neck of the gallbladder. The peritoneum overlying the gallbladder infundibulum was then incised and cystic duct and artery identified and circumferentially dissected. ICG did not show the cystic duct or gallbladder due to hydrops. Attempted cholangiograms with the urethrotome catheter unable to complete. The cystic duct and artery were then doubly clipped and divided close to the gallbladder. The gallbladder then dissected from its peritoneal attachments by electrocautery. While dissecting the gallbladder there was a small enterotomy that leaked clear fluid that was suctioned. Area was irrigated with saline and hemostasis was checked The gallbladder fossa was irrigated with saline and hemostasis obtained. There is no evidence of bleeding from the gallbladder fossa or cystic artery or leakage of bile from the cystic duct stump. Secondary trochars removed under direct vision. No bleeding was noted the trocar sites. The laparoscope was withdrawn and umbilical trocar removed. The gallbladder was removed using the endoscopic retrieval bag through the umbilical port which needed to be enlarged due to that 3 cm stone. The gallbladder is passed off table as specimen. The abdomen was allowed to collapse. The fascia of the supraumbilical site was closed with 2 [id number]-[id number]-avuuk sutures as well as interrupted 0 Vicryl suture. The skin was closed with sutures of 4-0 Monocryl and Steri-Strips. The patient was extubated. The patient tolerated procedure well and was taken to the postanesthesia care unit in stable condition. Surgical Findings: See operative report Complications Complications: No
[2025-04-04] MEDS: Bupiv/Epi 0.25% 30 ML Vial (15:23)
--- NOTE | 2025-04-04 15:26 | DCINST_ITS ---
Discharge Instructions Diet Discharge Diet: Light diet - advance as tolerated Activity Discharge Activity: May Not Drive (while taking narcotic pain medications.) May shower in (days): 1 Lifting Restrictions: no lifting >20 lbs x 2 wks, no strenuous exercise for 4 wks Dressing / Incision Call your doctor if your incision/area has: Continuous Slow Oozing, Sudden Increased Bleeding, Increased Pain/ Swelling, Increased Redness, Foul Smelling Discharge and Swelling at the incision site Call your doctor if you observe: Fever of 101 or Higher Remove Dressing in: 2 days Cleanse incision/area with: Soap & Water Additional Dressing/Incision Instructions:: Steri-Strips will fall off in 7 to 10 days, if they do not fall off okay to remove after 10 days. Follow Up Care Please Follow Up With: Abbie Philip MD When: Call the office for a follow-up appointment 2 weeks; after 5 PM and on the weekends call [phone] with any concerns. Test Results: Test results from this visit will be discussed in further detail at your follow- up appointment, if applicable. Discharge Plan Admission Attending Provider: Abbie Philip Primary Care Provider: Care Physician,No Primary Instructions Print Language: Indonesian Discharge Orders/Prescriptions Prescriptions: New oxycodone 5 mg capsule 5 mg PO Q6H PRN (Reason: pain) 3 Days Qty: 10 0RF Continued omeprazole 40 mg capsule,delayed release(DR/EC) 40 mg PO QDAY Qty: 30 3RF Rx Instructions: swallow whole; do not crush, chew, dissolve, cut, break Referrals / Follow Up: Care Physician,No Primary [Primary Care Provider, Medical] Disposition Disposition (needs filled in before D/C Order can be placed): Home, Self Care
--- NOTE | 2025-04-04 15:45 | PCM.POST.ANE ---
Anesthesia: Postop Eval I Current Vital Signs Temperature: 97.4 F Pulse Rate: 84 Blood Pressure: 126/78 Respiratory Rate: 16 Pulse Ox: 93 Oxygen Delivery Method: Nasal Cannula Oxygen Flow Rate (L/min): 2 Assessment Airway patent: Yes Spontaneous unlabored respirations: Yes Mental status: Awake and Calm nausea: No Vomiting: No Anesthesia Complication: No Fluid Hydration Crystalloid volume administer (ml): 1,600 Total IV fluid infused: 1,600 Progress Note Anesthesia document: Postop Eval 1 completed: Yes
[2025-04-04] MEDS: Ketorolac 30 MG/ML Syringe IV (15:48)
[2025-04-04] MEDS: Piperacil/Tazobactam 3.375 GM in 0.9% Normal Saline (50mL MB+) 50 ML IV (15:48)
--- NOTE | 2025-04-04 17:37 | POSTOPAN2_ITS ---
Anesthesia Postop Eval I Sum Postop Eval Completion status Anesthesia document: Postop Eval 1 completed: Yes Anesthesia Postop Eval I Summary Anesthesia Postop Eval I Summary: Anesthesia Postop Eval I: Assessment Summary Airway patent Yes 04/04/25 15:46 [email or web address] Spontaneous unlabored Yes 04/04/25 15:46 [email or web address] respirations Mental status Awake,Calm 04/04/25 15:46 [email or web address] nausea No 04/04/25 15:46 [email or web address] Vomiting No 04/04/25 15:46 [email or web address] Anesthesia Postop Eval I: Fluid Summary Crystalloid volume administer 1,600 04/04/25 15:46 [email or web address] (ml) Colloids volume administered ( ml) Blood Product volume administered (ml) Total IV fluid infused 1,600 04/04/25 15:46 [email or web address] Anesthesia Postop Eval I: Summary Notes Anesthesia Complication No 04/04/25 15:46 [email or web address] Anesthesia Complication Comment: Post-operative progress note Anesthesia: Postop Eval II Evaluation Mental status: Awake and Calm Pain Level: 1 nausea: No Vomiting: No Complications Anesthesia Complication: No
--- NOTE | 2025-04-04 17:37 | PCM.POSTANE2 ---
Anesthesia Postop Eval I Sum Postop Eval Completion status Anesthesia document: Postop Eval 1 completed: Yes Anesthesia Postop Eval I Summary Anesthesia Postop Eval I Summary: Anesthesia Postop Eval I: Assessment Summary Airway patent Yes 04/04/25 15:46 [email or web address] Spontaneous unlabored Yes 04/04/25 15:46 [email or web address] respirations Mental status Awake,Calm 04/04/25 15:46 [email or web address] nausea No 04/04/25 15:46 [email or web address] Vomiting No 04/04/25 15:46 [email or web address] Anesthesia Postop Eval I: Fluid Summary Crystalloid volume administer 1,600 04/04/25 15:46 [email or web address] (ml) Colloids volume administered ( ml) Blood Product volume administered (ml) Total IV fluid infused 1,600 04/04/25 15:46 [email or web address] Anesthesia Postop Eval I: Summary Notes Anesthesia Complication No 04/04/25 15:46 [email or web address] Anesthesia Complication Comment: Post-operative progress note Anesthesia: Postop Eval II Evaluation Mental status: Awake and Calm Pain Level: 1 nausea: No Vomiting: No Complications Anesthesia Complication: No
== END 2025-04-04 18:48 | disposition home or self-care (01) ==
LOC: SDC 12:20 → AC 12:20
PROVIDERS: Referring Provider Surgery; Visit Provider Surgery
PROC: 0FT44ZZ Resection of Gallbladder, Percutaneous Endoscopic Approach (ICD-10-PCS; CPT 47562; principal; 2025-04-04 13:40)
DX: K80.12 Calculus of gallbladder with acute and chronic cholecystitis without obstruction (principal); K21.9 Gastro-esophageal reflux disease without esophagitis; Z79.899 Other long term (current) drug therapy
CPT/HCPCS: 47562; S2900; 00790; 80076; 88304; J2405

== ENCOUNTER 2025-04-07 13:34 | Inpatient (IN) | payer OTHER, SELFPAY ==
[2025-04-07] VITALS (17 sets, daily range): BP systolic 116–134; BP diastolic 68–93; PULSE 76–101; RESP 14–21; TEMP 36.1–37.3; O2SAT 93–98; BMI 34.9; BMI 33.9
--- NOTE | 2025-04-07 14:09 | CT_ITS ---
PROCEDURE: CT ABDOMEN/PELVIS W IV CONT ONLY 04/07/2025 REASON FOR EXAM: RECENT CYNDIE, POSTOP N/V, RUQ PAIN TECHNIQUE: Procedure Code: [id number] Modality: CT Procedure: ABDOMEN/PELVIS W IV CONT ONLY Coronal and Sagittal reconstruction series were provided. CONTRAST: Isovue 300 VOLUME: 99 mL One or more dose reduction techniques were used (e.g., Automated exposure control, adjustment of the mA and/or kV according to patient size, use of iterative reconstruction technique. RADIATION DOSE SUMMARY: DLP: 1331.71 mGycm COMPARISON: Abdominal CT 03/16/2025. FINDINGS: Lung bases: Clear. Mild bibasilar dependent atelectasis. Hepatobiliary: Hepatic steatosis. Redemonstrated hyperattenuating mass with central hypodensity in the right lobe of the liver, favoring focal nodular hyperplasia. Status post cholecystectomy with mild postoperative prominence of the biliary ductal system with a biliary stent traversing the CBD and extending into the duodenum. Presumed postoperative pneumobilia in the left hepatic lobe. Normal size spleen. Unremarkable appearance of the pancreas. Genitourinary: Normal adrenal glands. Symmetric renal enhancement. No urolithiasis or hydronephrosis. Unremarkable urinary bladder. Normal-sized prostate. Bowel: There is a small supraumbilical ventral abdominal wall hernia containing a focally herniated short-segment of jejunal small bowel, with a narrow neck and small-bowel obstruction at the site of herniation with upstream proximal small bowel dilatation with multiple air-fluid levels. Distally the remainder of the bowel is largely decompressed. Normal appendix. No evidence for active inflammatory process. Mild distal colonic diverticulosis without evidence for active diverticulitis. Lymph nodes: No enlarged abdominopelvic lymph nodes. Vasculature: Normal caliber abdominal aorta and IVC. Peritoneum / Retroperitoneum: No ascites or free air. Bones: Minimal degenerative changes of the spine. CT/Abdomen/Pelvis W IV Cont ONLY IMPRESSION: 1. Proximal small bowel obstruction with transition point at the location of a small supraumbilical ventral abdominal wall hernia, with focally herniated short-segment of jejunal small bowel. 2. 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 This can be confirmed with a dedicated MRI with Eovist. 3. Prior cholecystectomy with biliary ductal stent in place. Postoperative pne umobilia. Reading Location: [id number]
--- NOTE | 2025-04-07 14:10 | EDS_ITS ---
HPI HPI - GI History of Present Illness Chief Complaint: Nausea/Vomiting Informant: patient and spouse/S.O. Narrative Narrative: Patient is a 49-year-old male presenting with nausea, emesis, and abdominal pain following cholecystectomy performed 3 days ago. - Reports feeling unwell since the surgery, with daily episodes of emesis. - Has been consuming only Gatorade; last solid food intake was on night of surgery. - Experiences upper abdominal pain, which he describes as distinct from incision pain. - Emesis provides temporary relief, but symptoms recur after about 6 hours. - Denies emesis being consistently triggered by fluid intake. - Has been ambulating when feeling well to promote bowel function. - Reports bloating and minimal gas passage and no bowel movement since surgery. - Has taken three doses of prescribed oxycodone but prefers to avoid further use. [facility] Medical History (Updated 04/07/25 @ 15:[address] Rich Ramirez MD) Wears glasses Fatty liver Heartburn Gastric reflux Non-smoker Nausea Abdominal pain GERD (gastroesophageal reflux disease) Home Medications ?Medication ?Instructions ?Recorded ?Last Taken ?Type omeprazole 40 mg capsule,delayed 40 mg PO QDAY #30 cap s 03/23/25 04/03/25 Rx release oxycodone 5 mg capsule 5 mg PO Q6H PRN pain 3 days #10 04/04/25 Unknown Rx caps Allergy/AdvReac Type Severity Reaction Status Date / Time No Known Allergies Allergy Verified 04/07/25 13:36 Surgical History S/P laparoscopic cholecystectomy History of wisdom tooth extraction (~06/21/94) Hx of LASIK History of ERCP (03/16/25) Social History Smoking Status: Never smoker alcohol intake: never substance use type: does not use ROS ROS ED Constitutional Constitutional ED: Denies chills or fever(s) Eyes Eyes: Denies change in vision or diplopia ENT ENT ED: Denies rhinorrhea or sore throat Cardiovascular Cardiovascular: Denies chest pain or palpitations Respiratory/Chest Respiratory/Chest: Denies cough or dyspnea Gastrointestinal Gastrointestinal: Reports abdominal pain, nausea, vomiting and other Details: no BM since surgery ; Denies diarrhea Genitourinary Genitourinary ED: Denies dysuria or hematuria Musculoskeletal Musculoskeletal: Denies back pain or neck pain Integumentary Denies abscess or rash Neurologic Neurologic: Denies headache(s), paresthesias or weakness Psychiatric Psychiatric: Denies anxiety or suicidal thoughts EXAM Physical Exam Const Vital Signs: 04/07/25 13:36 04/07/25 13:38 04/07/25 13:51 Temperature 98.9 F 98.9 F Temperature Source Oral Oral Pulse Rate 101 H 101 H 88 Respiratory Rate 18 21 H 19 H Blood Pressure 120/88 H 134/84 H Blood Pressure Mean 98 100 Pulse Ox 95 96 96 Oxygen Delivery Method Room Air Room Air Room Air 04/07/25 15:34 04/07/25 15:34 04/07/25 15:56 Temperature 98.9 F 98.9 F Temperature Source Pulse Rate 88 88 88 Respiratory Rate 19 H 16 16 Blood Pressure 134/84 H 134/84 H Blood Pressure Mean 100 Pulse Ox 96 98 98 Oxygen Delivery Method Room Air Positive well nourished and well developed General Appearance ED: well developed and NAD HEENT Reports moist mucous membranes normocephalic and atraumatic Eyes PERRL and EOMs intact bilaterally Neck full ROM and supple Resp normal respiratory effort and clear to auscultation bilaterally Cardio regular rate, regular rhythm and no murmurs GI GI Narrative: RUQ tenderness, no guard/kylah; mildly ttp left of suprapubic. All surgical incisions without signs of infection significant tenderness or dehiscence. No discharge. 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 Philip, is solar project coordination specialist. I discussed the case with her, and she agrees that ileus is not a likely differential but recommends a CT scan, which was ordered. Labs and CT were obtained, showing mild leukocytosis of 12.5, with normal liver enzymes and lipase. I reviewed the CT images and results, which I agree with; they demonstrate an incisional supraumbilical hernia causing a bowel obstruction. Dr. Philip is aware. She came to the ER, saw the patient, discussed the findings with him, and is taking him to the OR. She requested placement of an NG tube in the ER, which is currently being done. I have discussed this plan with the patient. Lab Data Attestation: I reviewed the patient's lab results. Labs: Laboratory Results - last 24 hr 04/07/25 14:15 WBC 12.5 H RBC 5.86 Hgb 16.3 Hct 47.1 MCV 80.4 MCH 27.8 MCHC 34.6 RDW Std Deviation 37.2 RDW Coeff of Ghulam 12.9 Plt Count 346 MPV 10.3 Immature Gran % (Auto) 0.500 Neut % (Auto) 79.5 H Lymph % (Auto) 13.7 L Rowan % (Auto) 5.4 Eos % (Auto) 0.6 Baso % (Auto) 0.3 Absolute Neuts (auto) 10.0 H Absolute Lymphs (auto) 1.71 Nucleated RBC % 0 Sodium 137 Potassium 3.6 Chloride 100 Carbon Dioxide 22.5 Anion Gap 15 BUN 16 Creatinine 0.93 Estim Creat Clear Calc 107.69 Est GFR (MDRD) Non-Af 101 BUN/Creatinine Ratio 17.4 Glucose 119 H Calcium 9.9 Total Bilirubin 0.75 AST 18 ALT 26 Alkaline Phosphatase 52 Total Protein 7.6 Albumin 4.2 Globulin 3.4 Albumin/Globulin Ratio 1.2 Lipase 36 Radiography Diagnostic Testing: Clinical Impression(s) from Imaging Studies Abdomen/Pelvis CT 04/07/25 14:09 IMPRESSION: 1. Proximal small bowel obstruction with transition point at the location of a small supraumbilical ventral abdominal wall hernia, with focally herniated short-segment of jejunal small bowel. 2. 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 This can be confirmed with a dedicated MRI with Eovist. 3. Prior cholecystectomy with biliary ductal stent in place. Postoperative pneumobilia. Reading Location: [id number] Management Discussion w/another healthcare provider: Life Skills Trainer (surgery dr. philip) Critical Care Time Critical Care Time: Yes Critical care time (excluding procedures): 30-74 minutes (32 min), Including time spent:, Discussing w/Patient &/or Family/Protective Signal Repairer Helper, Discussing w/Consultants, Arranging Admission or Transfer and Performing Direct Patient Care at Bedside Discharge Plan Dx/Rx/DC Orders Clinical Impression: SBO (small bowel obstruction), Incisional hernia with bowel obstruction, Intractable vomiting Disposition Disposition: Acute Care Hospital [facility] Discharge Date/Time: 04/07/25 15:46
--- OUTSIDE RECORDS SUMMARY | 2025-04-07 14:19 | XMS RPT_ITS | CCD ---
Author Organization [facility] Care Team Providers Care Knot Tier Name Role Phone Care Physician, No Primary Primary Care Physicia n Unavailable Dr. Lucretia Bear DO Emergency Department Physi alexsander Reji BROOKS, Dr. Landry Cox Admitting Physician Itlao BROOKS, Dr. Shi Attending Physician Italo BROOKS, Dr. Shi Nurse Practitioner Dr. Yevgenyi Sarah DO Nurse Practitioner Peter TEASELER-CKarlee Nurse Practitioner [phone] Librado TEASELER-C, Apolonia Nurse Practitioner Shira Dawson Nurse Practitioner Dr. Yevgeniy Sarah DO Attending Physician Care Physician, No Primary Referring Provider Un available Cedrick BROOKS, Dr. Leiva Attending Physician [phone] Care Physician, No Primary Primary Care Unava ilable Robotham, Abbie Referring Unavailable Abbie Philip Attending Unavailable Landry Mendoza Admitting Unavailable Care Physician, No Primary Primary Care Unava ilable Jose Guadalupe Puckett Consulting Unavailable Jose Guadalupe Puckett Attending Unavailable Yevgeniy Sarah Consulting Unavailable Karlee Green Consulting Unavailable Apolonia Pavon Consulting Unavailable Shira Alex Consulting Unavailable Care Physician, No Primary Referring Unava ilable Care Physician, No Primary Primary Care Unava ilable Robotluis fernando, Abbie Attending Unavailable Care Physician, No Primary Primary Care Unava ilable Robotham, Abbie Referring Unavailable Abbie Philip Attending Unavailable David Philipera Consulting Unavailable Landry Mendoza Admitting Unavailable Care Physician, No Primary Primary Care Unava ilable Jose Guadalupe Puckett Attending Unavailable Jose Guadalupe Puckett Consulting Unavailable Yevgeniy Sarah Consulting Unavailable Karlee Green Consulting Unavailable Apolonia Pavon Consulting Unavailable Shira Alex Consulting Unavailable FriendYevgeniy Attending Unavailable Jose Guadalupe Puckett Referring Unavailable Medications Current Medications Medication Drug Class(es) Dates Sig (Normalized) Sig (Original) omeprazole 40 mg delayed release oral capsule (1 source) Proton Pump Inhibitor Start: 03-23-2025 take 1 capsule by mouth once daily Omeprazole 40 mg capsule,delayed release(DR/EC) Active 40 mg PO daily 17 09March 23, 2025 12:00am swallow whole; do not crush, chew, dissolve, cut, break Complies with drug therapy Completed/Discontinued Medications Medication Drug Class(es) Dates Sig (Normalized) Sig (Original) amoxicillin 875 mg / clavulanate 125 mg oral tablet (3 sources) Penicillin-class Antibacterial Start: 03-18-2025 End: 03-23-2025 Amoxicillin-Pot Clavulanate 875-125 mg tablet Discontinued 1 {tbl} PO TWICE A DAY 10 March 18, 2025 12:00am March 23, 2025 8:51am Start: 03-18-2025 docusate sodium 50 mg / sennosides, mcc 8.6 mg oral tablet (3 sources) Start: 03-18-2025 End: 03-23-2025 Sennosides-Docusate Sodium (Stimulant Laxative Plus) 8.6-50 mg Tablet Discontinued 2 {tbl} PO TWICE DAILY NEEDED as needed for Constipation March 18, 2025 12:00am March 23, 2025 8:51am Start: 03-18-2025 Problems Problem Classification Problem Date Documented Date Episodic/Chronic Abdominal pain (2 sources) Abdominal pain; Translations: [Unspecified abdominal pain] Onset: 04-02-2025 03-23-2025 Episodic Biliary tract disease (7 sources) Biliary calculus; Translations: [Calculus of gallbladder with acute and chronic cholecystitis without obstruction] Onset: 04-02-2025 03-16-2025 Episodic Nausea and vomiting (1 source) Nausea; Translations: [Nausea] 03-23-2025 Episodic Other nervous system disorders (1 source) Other acute postprocedural pain; Translations: [Other acute postprocedural pain] Onset: 04-04-2025 Episodic Results Test Name Value Interpretation Reference Range Facility Discharge Instructionon 03-21 Discharge Instruction [facility] Medical Records Department [address] [place] [address] Instructions for Home/Discharge Instructions 04/04/25 1526 MR#: [id number] Acct: [id number] Name: ALONDRA ARITA Rep #: [id number] : 1975 49 From: Abbie Philip MD PCP: Roman Physician,No Primary Status:REG [facility] Discharge Instructions Diet Discharge Diet: Light diet - advance as tolerated Activity Discharge Activity: May Not Drive (while taking narcotic pain medications.) May shower in (days): 1 Lifting Restrictions: no lifting >20 lbs x 2 wks, no strenuous exercise for 4 wks Dressing / Incision Call your doctor if your incision/area has: Continuous Slow Oozing, Sudden Increased Bleeding, Increased Pain/ Swelling, Increased Redness, Foul Smelling Discharge and Swelling at the incision site Call your doctor if you observe: Fever of 101 or Higher Remove Dressing in: 2 days Cleanse incision/area with: Soap Water Additional Dressing/Incision Instructions:: Steri-Strips will fall off in 7 to 10 days, if they do not fall off okay to remove after 10 days. Follow Up Care Please Follow Up With: Abbie Philip MD When: Call the office for a follow-up appointment 2 weeks; after 5 PM and on the weekends call [phone] with any concerns. Test Results: Test results from this visit will be discussed in further detail at your follow-up appointment, if applicable. Discharge Plan Admission Attending Provider: Abbie Philip Primary Care Provider: Roman Physician,No Primary Instructions Print Language: Dominican Discharge Orders/Prescriptions Prescriptions: New oxycodone 5 mg capsule 5 mg PO Q6H PRN (Reason: pain) 3 Days Qty: 10 0RF Continued omeprazole 40 mg capsule,delayed release(DR/EC) 40 mg PO QDAY Qty: 30 3RF Rx Instructions: swallow whole; do not crush, chew, dissolve, cut, break Referrals / Follow Up: Care Physician,No Primary [Primary Care Provider, Medical] Disposition Disposition (needs filled in before D/C Order can be placed): Home, Self Care 04/04/25 1529 Abbie Philip MD CC: No Primary Care Physician Signed Normal [facility] Liver Profileon 04-04-2025 Albumin [Mass/Vol] 4.5 g/dL Normal 3.5-5.0 [facility] Comment on above: Performed By: #### L 500.3400 ####[facility] [address] [place], [address] ALK PHOS 58 U/L Normal 40-129 [facility] Comment on above: Performed By: #### L 500.3400 ####[facility] [address] [place], [address] ALT [Catalytic activity/Vol] 44 U/L Normal <=46 [facility] Comment on above: Performed By: #### L 500.3400 ####[facility] [address] [place], [address] AST [Catalytic activity/Vol] 30 U/L Normal <=37 [facility] Comment on above: Performed By: #### L 500.3400 ####[facility] [address] [place], [address] Bilirubin [Mass/Vol] 0.71 mg/dL Normal 0.00-1.30 [facility] Comment on above: Performed By: #### L 500.3400 ####[facility] [address] [place], [address] Bilirubin.direct [Mass/Vol] 0.32 mg/dL High 0.00-0.30 [facility] Comment on above: Performed By: #### L 500.3400 ####[facility] [address] [place], [address] Globulin (S) [Mass/Vol] 3.2 g/dL Normal 2.2-4.2 [facility] Comment on above: Performed By: #### L 500.3400 ####[facility] [address] [place], [address] T PROT 7.7 g/dL Normal 5.9-8.4 [facility] Comment on above: Performed By: #### L 500.3400 ####[facility] [address] [place], [address] MR/POSTOP.ANEon 04-04-2025 MR/POSTOP.ANE [facility] Medical Records Department [address] [place] [address] Anesthesia Postop Eval I 04/04/25 1545 MR#: [id number] Acct: [id number] Name: LYLAALONDRA DORSEY Rep #: [id number] : 1975 49 From: Bryson Yanes CRNA PCP: Care Physician,No Primary Status:REG [facility] Y Race: C Location: [place] [address] Anesthesia: Postop Eval I Current Vital Signs Temperature: 97.4 F Pulse Rate: 84 Blood Pressure: 126/78 Respiratory Rate: 16 Pulse Ox: 93 Oxygen Delivery Method: Nasal Cannula Oxygen Flow Rate (L/min): 2 Assessment Airway patent: Yes Spontaneous unlabored respirations: Yes Mental status: Awake and Calm nausea: No Vomiting: No Anesthesia Complication: No Fluid Hydration Crystalloid volume administer (ml): 1,600 Total IV fluid infused: 1,600 Progress Note Anesthesia document: Postop Eval 1 completed: Yes 04/04/25 1546 Date Bryson Yanes CRNA Cosigner Signature: Date CC: Signed Normal [facility] MR/UQPSNXPQ6av 04-04-2025 MR/POSTOPAN2 [facility] Medical Records Department [address] [place] [address] Anesthesia Postop Eval II 04/04/25 1737 MR#: [id number] Acct: [id number] Name: ALONDRA ARITA Rep #: [id number] : 1975 49 From: Armando Gomez MD PCP: Care Physician,No Primary Status:REG [facility] Y Race: C Location: [place] [address] Anesthesia Postop Eval I Sum Postop Eval Completion status Anesthesia document: Postop Eval 1 completed: Yes Anesthesia Postop Eval I Summary Anesthesia Postop Eval I Summary: Anesthesia Postop Eval I: Assessment Summary Airway patent Yes 04/04/25 15:46 [email or web address] Spontaneous unlabored Yes 04/04/25 15:46 [email or web address] respirations Mental status Awake,Calm 04/04/25 15:46 [email or web address] nausea No 04/04/25 15:46 [email or web address] Vomiting No 04/04/25 15:46 [email or web address] Anesthesia Postop Eval I: Fluid Summary Crystalloid volume administer 1,600 04/04/25 15:46 [email or web address] (ml) Colloids volume administered ( ml) Blood Product volume administered (ml) Total IV fluid infused 1,600 04/04/25 15:46 [email or web address] Anesthesia Postop Eval I: Summary Notes Anesthesia Complication No 04/04/25 15:46 [email or web address] Anesthesia Complication Comment: Post-operative progress note Anesthesia: Postop Eval II Evaluation Mental status: Awake and Calm Pain Level: 1 nausea: No Vomiting: No Complications Anesthesia Complication: No 04/04/25 1737 Date Armando Gomez MD Cosigner Signature: Date CC: Signed Normal [facility] Operative Reporton 5 Operative Report [facility] Medical Records Department [address] [place] [address] Operative Report 04/04/25 1520 MR#: [id number] Acct: [id number] Name: ALONDRA ARITA Rep #: [id number] : 1975 49 From: Abbie Philip MD PCP: Care Physician,No Primary Status:[facility] Location: [facility] Operative Report (Standard) Operative Information Date of Procedure: 04/04/25 Pre-Operative Diagnosis: Cholelithiasis Post-Operative Diagnosis: Cholelithiasis, hydrops of the gallbladder Surgery/Procedure Performed: Robotic cholecystectomy with attempted cholangiogram/ICG airbrush artist technical: Yes Outpatient Physical Therapist Assistant: Sarah Beth Baumann Tasks completed by fitter's assistant: Opening closing Type of Anesthesia: General/Supplemental RN Documented Start/Stop Times: Operation Date: 04/04/25 14:00 Case Time Into Pre-Op 04/04/25 12:23 Out of Pre-Op 04/04/25 13:37 Anesthesia Start 04/04/25 13:41 Into Room 04/04/25 13:41 Procedure Start 04/04/25 14:00 Procedure End 04/04/25 15:28 Anesthesia End 04/04/25 15:39 Out of Room 04/04/25 15:39 Into Recovery 04/04/25 15:40 Into Phase II Recovery 04/04/25 16:50 Out of Recovery 04/04/25 16:50 Out of Phase II 04/04/25 18:48 Procedure Start Time: 14:00 Procedure Stop Time: 15:28 Select all DRAINS/GRAFTS/IMPLANTS that apply: None Special Medications: Ancef 2 g IV x 1 Estimated Blood Loss: 20 cc Specimen collected: Yes Description of specimen(s) removed: Gallstone Description of surgery: Indications: this is a 49 year-old male who developed abdominal pain/nausea/vomiting had cholelithiasis and choledocholithiasis status post ERCP. Robotic cholecystectomy was elected. Description procedure: The patient was placed on operating table in supine position. A timeout was completed verifying correct patient, procedure, site, position and special equipment prior to be ginning procedure. General Anesthesia was induced. The abdomen was prepped and draped in usual sterile fashion. An incision was made in the natural skin line below the umbilicus. The fascia was elevated and incised. The peritoneum was elevated and incised. Entry into the peritoneum was confirmed visually and no bowel was noted in the vicinity of the incision. Reynolds trocar was placed. The abdomen was insufflated with carbon dioxide to a pressure of 12-15 mmHg. Patient tolerated insufflation well. The laparoscope was then inserted and abdomen inspected. No injuries from initial trocar placement were noted. Additional trochars were then inserted in the following locations 8 mm trocar left upper quadrant and 2 more 8 mm trochars in right lower quadrant and left lower quadrant. The abdomen was inspected no abnormalities were found. The table is placed in reverse Trendelenburg position with the right side up. Robot was docked. The adhesions between the gallbladder and omentum were taken down carefully. The dome of the gallbladder was grasped with atraumatic grasper passed through the lateral port and retracted over the dome of the liver. Infundibulum was then grasped with atraumatic grasper through the midclavicular port and retracted to the right lower quadrant. There were dense adhesions at the area of the neck of the gallbladder. The peritoneum overlying the gallbladder infundibulum was then incised and cystic duct and artery identified and circumferent ially dissected. ICG did not show the cystic duct or gallbladder due to hydrops. Attempted cholangiograms with the urethrotome catheter unable to complete. The cystic duct and artery were then doubly clipped and divided close to the gallbladder. The gallbladder then dissected from its peritoneal attachments by electrocautery. While dissecting the gallbladder there was a small enterotomy that leaked clear fluid that was suctioned. Area was irrigated with saline and hemostasis was checked The gallbladder fossa was irrigated with saline and hemostasis obtained. There is no evidence of bleeding from the gallbladder fossa or cystic artery or leakage of bile from the cystic duct stump. Secondary trochars removed under direct vision. No bleeding was noted the trocar sites. The laparoscope was withdrawn and umbilical trocar removed. The gallbladder was removed using the endoscopic retrieval bag through the umbilical port which needed to be enlarged due to that 3 cm stone. The gallbladder is passed off table as specimen. The abdomen was allowed to collapse. The fascia of the supraumbilical site was closed with 2 coavwk-gr-gwnen sutures as well as interrupted 0 Vicryl suture. The skin was closed with sutures of 4-0 Monocryl and Steri-Strips. The patient was extubated. The patient tolerated procedure well and was taken to the postanesthesia care unit in stable condition. Surgical Findings: See operative report Complications Complications: No 04/04/25 8327 (more content not included)... Normal [facility] Surgery Visit Reporton 03-23 Surgery Visit Report [facility] [address] [place] [address] OFFICE VISIT Date of Service: 03/23/25 MR#: [id number] Acct: [id number] Name: ALONDRA ARITA Rep #: [id number] : 1975 Provider: Dr. Abbie gould MD Age/Sex: 49/M Location: [facility] Status: Signed Intake Vital Signs 03/16/25 13:04 03/23/25 08:49 Height 6 ft 8 in 5 ft 7 in Weight: 231 lb 8 oz BMI 36.2 BP 108/74 Blood Pressure Location Rt brachial Position Sitting Respiration 18 Pulse 78 Pulse Source Monitor Temp 97.2 F L Temp Source Temporal Pulse Oximetry (%) 99 Oxygen Delivery Method room air Intake Visit Reasons: DISCUSS LAP/ROBOTIC CYNDIE Chief Complaint: discuaa cholecystectomy Is patient in pain?: Yes (epigastric ) Allergies No Known Allergies Allergy (Verified 03/23/25 08:51) PFSH Medical History (Updated 03/23/25 @ 16:[address] Abbie Philip MD) Nausea Abdominal pain GERD (gastroesophageal reflux disease) Social History (Updated 03/23/25 @ 08:49 by Kate Lock LPN) Smoking Status: Never smoker alcohol intake: never substance use type: does not use HPI HPI HPI: 49-year-old male presents for cholelithiasis status post ERCP due to choledocholithiasis. Patient was hospitalized mid last week was found to have choledocholithiasis. Patient currently states he still has about a 2/10 discomfort epigastric/right upper quadrant. Patient states it does get worse with eating however he is following a low-fat diet. Patient states previous to coming in he was having reflux daily with burning of the esophagus. Patient is currently not on any PPIs. Patient CT abdomen pelvis did show a large gallstone in the gallbladder and his ERCP showed a couple small stones still in the cystic duct. Patient did have some elevation in liver profile which did improve during hospitalization. ROS General General: No weight change, appetite, fatigue, colon cancer, breast cancer or weakness HEENT HEENT: No difficulty swallowing, eye injury, eye surgery, swollen glands or hoarseness Endo Endocrine: No thyroid disease, diabetes mellitus, thyroid cancer, Hair loss, heat intolerance or cold intolerance Skin Skin: No rash or changing moles Musc Musculoskeletal: No back problems, arthritis, rheumatoid arthritis, gout or joint pain Cardio Cardiovascular: No murmur, pacemaker, heart disease, atrial fibrillation, high blood pressure, heart attack, heart stent, palpitations, shortness of breath with exertion or chest pain Psych Psychiatric: No depression, anxiety or hearing voices Resp Respiratory: No shortness of breath, No sleep apnea, No cough, No COPD, No asthma, No emphysema and No wheezing Gastro Gastrointestinal: Yes abdominal pain, Yes nausea or vomiting, No diarrhea, No constipation, No blood in stool, No acid reflux, No hemorrhoids, No ulcers, Yes gallbladder problem and No black,tarry stools Juan Antonio Hematologic: No blood thinners, No blood disorders, No bleeding, No anemia and No blood clots Neuro Neurologic: No numbness, No tingling and No weakness Exam Const General: cooperative, healthy appearing, comfortable and no acute distress [facility] Head: normocephalic and atraumatic Neck Neck: supple Resp Effort Inspection: normal respiratory effort Cardio Rate: regular rate GI Inspection: non-distended Palpation: soft, no hernias and nontender (Unable to produce tenderness on exam) Skin General: no rashes or lesions noted Neuro General: CN's II-XI intact bilaterally Extrem General: normal to inspection Psych Mental Status: mental status grossly normal Attitude: cooperative Assessment and Plan Assessment and Plan (1) Cholelithiasis: Status: Acute (2) GERD (gastroesophageal reflux disease): Status: Acute Medications: New omeprazole swallow whole; do not crush, chew, dissolve, cut, break 40 mg PO QDAY 30 caps 3RF Discontinued amoxicillin-pot clavulanate 875-125 mg Discontinued Reason: Pt no longer taking 1 TAB PO BID 10 tabs 0RF sennosides-docusate sodium 8.6-50 mg (Stimulant Laxative Plus) Discontinued Reason: Pt no longer taking 2 tabs PO BID PRN PRN 0 tabs 0RF Constipation Plan Patient is currently not on a PPI we will send a prescription for omeprazole. Reviewed the anatomy with the patient and discussed the procedure: Robotic/laparoscopic cholecystectomy with possible cholangiograms, possible open. Review risks including but not limited to bleeding, infection, hernia, bile leak, retained gallstones requiring another procedure ERCP- Endoscopic Retrograde Cholangiopancreatograp hy, injury to another organ (bile ducts, common bile duct, small bowel, etc.) and conversion to an open procedure. All questions were answered. Abbie Philip M.D. (more content not included)... Normal [facility] Bilirubin directOrdered By: Jose Guadalupe Puckett on 03-18-2025 Bilirubin.direct [Mass/Vol] 0.40 mg/dL High 0.00-0.30 [facility] Bilirubin, totalOrdered By: Jose Guadalupe Puckett on 03-18-2025 Bilirubin [Mass/Vol] 0.85 mg/dL 0.00-1.30 [facility] Discharge Instructionon 02-20 Discharge Instruction [facility] Medical Records Department [address] [place] [address] Instructions for Home/Discharge Instructions 03/18/25 0935 MR#: [id number] Acct: [id number] Name: ALONDRA ARITA Rep #: [id number] : 1975 49 From: Jose Guadalupe Puckett MD PCP: Roman Physician,No Primary Status:ADM IN Discharge Instructions DC O2, CPAP, BIPAP needs Home O2 Discharge instructions: No Follow Up Care Test Results: Test results from this visit will be discussed in further detail at your follow-up appointment, if applicable. Discharge Plan Admission Admit Date/Time: 03/16/25 12:53 Attending Provider: Jose Guadalupe Puckett Primary Care Provider: Care Physician,No Primary Consulting Providers: Jose Guadalupe Puckett; Yevgeniy Sarah; Karlee Green; Apolonia Pavon; Shira Alex Instructions Additional Instructions / Restrictions: Advised jure-ldm-hspjbsd Tylenol 500 mg to 1000 mg Q6 hourly as needed for fever more than 102 Fahrenheit and moderate to severe pain respectively. Qgoz-ndn-qpxkomy, probiotic, lactobacillus/acidophi tre 1 tablet twice daily for 7 days. Discharge Orders/Prescriptions Prescriptions: New sennosides-docusate sodium [Stimulant Laxative Plus] 8.6-50 mg Tablet 2 tab PO BID PRN PRN (Reason: Constipation) Qty: 0 0RF amoxicillin-pot clavulanate 875-125 mg tablet 1 tab PO BID Qty: 10 0RF Referrals / Follow Up: Yevgeniy Sarah DO [Med Staff - Active Staff, Gastroenterology] - Within 1 Month Abbie Philip MD [Med Staff - Active Staff, General Surgery] - Within 1 Week Care Physician,No Primary [Primary Care Provider, Medical] Disposition Disposition (needs filled in before D/C Order can be placed): Home, Self Care 03/18/25 0940 Jose Guadalupe Puckett MD CC: TEASELERMaliha Green; JACOBO-Amelia Pavon; Dr. Jose Guadalupe Puckett MD; MERE Robles; No Primary Care Physician; Yevgeniy Sarah DO Signed Normal [facility] Electrocardiogram reportOrde red By: Constantin Acosta on 03-18-2025 EKG study [facility] Cardiovascular Services [address] [place] [address] 12 Lead EKG 03/16/25 1044 MR#: [id number] Acct: [id number] Name: ALONDRA ARITA Rep #:[id number] : 1975 49 From: Constantin Acosta MD Attending Dr: Dr. Jose Guadalupe Puckett MD Status: DIS IN Ordering Dr: Lucretia Bear DO Date: 0 03/16/25 [place] [facility] Sex: M C Admitted: 03/16/25 Test Reason : GENERAL Blood Pressure : */* mmHG Vent. Rate : 76 BPM Atrial Rate : 76 BPM P-R Int : 170 ms QRS Dur : 76 ms QT Int : 354 ms P-R-T Axes : 51 18 38 degrees QTcB Int : 398 ms Normal sinus rhythm with sinus arrhythmia Normal ECG Confirmed by CONSTANTIN ACOSTA ([id number]), multimedia editor CARI OLIVARES ([id number]) on 03/19/2025 9:11:15 AM Referred By: Confirmed By: CONSTANTIN ACOSTA 03/19/25910 Date _ Constantin Acosta MD CC: Dr. Lucretia Bear DO; Dr. Jose Guadalupe Puckett MD; No Primary Care Physician ~ Signed [facility] Other Phone: Laboratory - Chemistry and C hemistry - challengeOrdered By: Jose Guadalupe Puckett on 03-18-2025 AST [Catalytic activity/Vol] 222 U/L High <38 [facility] Liver Profileon 03-18-2025 Albumin [Mass/Vol] 3.9 g/dL Normal 3.5-5.0 [facility] Comment on above: Performed By: #### L 500.3400 ####[facility] [address] [place], [address] ALK PHOS 65 U/L Normal 40-129 [facility] Comment on above: Performed By: #### L 500.3400 ####[facility] [address] [place], [address] ALT [Catalytic activity/Vol] 573 U/L High <=46 [facility] Comment on above: Performed By: #### L 500.3400 ####[facility] [address] [place], [address] AST [Catalytic activity/Vol] 222 U/L High <=37 [facility] Comment on above: Performed By: #### L 500.3400 ####[facility] [address] [place], [address] Bilirubin [Mass/Vol] 0.85 mg/dL Normal 0.00-1.30 [facility] Comment on above: Performed By: #### L 500.3400 ####[facility] [address] [place], [address] Bilirubin.direct [Mass/Vol] 0.40 mg/dL High 0.00-0.30 [facility] Comment on above: Performed By: #### L 500.3400 ####[facility] [address] [place], [address] Globulin (S) [Mass/Vol] 2.7 g/dL Normal 2.2-4.2 [facility] Comment on above: Performed By: #### L 500.3400 ####[facility] [address] [place], [place], [id number] T PROT 6.5 g/dL Normal 5.9-8.4 [facility] Comment on above: Performed By: #### L 500.3400 ####[facility] [address] [place], [place], [id number] Serum globulin measurementOr dered By: Jose Guadalupe Puckett on 03-18-2025 Globulin (S) [Mass/Vol] 2.7 g/dL 2.2-4.2 [facility] Serum or plasma alanine jackson otransferase (ALT) measurementOrdered By: Jose Guadalupe Puckett on 03-18-2025 ALT [Catalytic activity/Vol] 573 U/L High <47 [facility] Serum or plasma albumin carlos urement (mass/volume)Ordered By: Jose Guadalupe Puckett on 03-18-2025 Albumin [Mass/Vol] 3.9 g/dL 3.5-5.0 [facility] Serum or plasma alkaline julio sphatase measurementOrdered By: Jose Guadalupe Puckett on 03-18-2025 ALP [Catalytic activity/Vol] 65 U/L 40-129 [facility] Total proteinOrdered By: Michael Puckett on 03-18-2025 Protein [Mass/Vol] 6.5 g/dL 5.9-8.4 [facility] Absolute lymphocyte countOrd ered By: Jose Guadalupe Puckett on 03-17-2025 Lymphocytes Auto (Unsp spec) [#/Vol] 1.48 10*3/uL 0.83-4.51 [facility] Absolute neutrophil countOrd ered By: Jose Guadalupe Puckett on 03-17-2025 Neutrophils (Bld) [#/Vol] 9.6 10*3/uL High 2.0-7.7 [facility] Anion gap in Serum or Plasma Ordered By: Jose Guadalupe Puckett on 03-17-2025 Anion gap [Moles/Vol] 13 mmol/L 5-15 [facility] Automated lymphocyte count a s percentage of total leukocytesOrdered By: Jose Guadalupecipriano Puckett on 03-17-2025 Lymphocytes/100 WBC Auto (Unsp spec) 12.9 % Low 19-41 [facility] BUN/creatinine ratioOrdered By: Jose Guadalupe Puckett on 03-17-2025 Urea nitrogen/Creatinine [Mass ratio] 9.9 mg/mg Low 10-20 [facility] Basic Metabolic Profile (BMP )on 03-17-2025 BUN/CRE 9.9 RATIO Low 10-20 [facility] Comment on above: Performed By: #### L 500.3400, L100.0100, L500.2500 ####[facility] [address] [place], [address] Calcium [Mass/Vol] 9.0 mg/dL Normal 7.6-11.0 [facility] Comment on above: Performed By: #### L 500.3400, L100.0100, L500.2500 ####[facility] [address] [place], [address] Chloride [Moles/Vol] 105 mmol/L Normal 98-108 [facility] Comment on above: Performed By: #### L 500.3400, L100.0100, L500.2500 ####[facility] [address] [place], [address] CO2 [Moles/Vol] 19.5 mmol/L Low 21.0-32.0 [facility] Comment on above: Performed By: #### L 500.3400, L100.0100, L500.2500 ####[facility] [address] [place], [address] Creatinine [Mass/Vol] 0.92 mg/dL Normal 0.70-1.20 [facility] Comment on above: Performed By: #### L 500.3400, L100.0100, L500.2500 ####[facility] [address] [place], [address] ECRCL 130.43 ml/min Normal 50-250 [facility] Comment on above: Performed By: #### L 500.3400, L100.0100, L500.2500 ####[facility] [address] [place], [address] GAP 13 Normal 5-15 [facility] Comment on above: Performed By: #### L 500.3400, L100.0100, L500.2500 ####[facility] [address] [place], [address] GFR/1.73 sq M.predicted among non-blacks MDRD (S/P/Bld) [Vol rate/Area] 101 mL/min/{1.73_m2} Normal >60 [facility] Comment on above: Result Comment: mL/m in/1.73m2 CKD-EPI Creatinine Equation (2020) Performed By: #### L 500.3400, L100.0100, L500.2500 ####[facility] [address] [place], [address] Glucose [Mass/Vol] 125 mg/dL High 70-99 [facility] Comment on above: Performed By: #### L 500.3400, L100.0100, L500.2500 ####[facility] [address] [place], [address] Potassium [Moles/Vol] 4.0 mmol/L Normal 3.3-5.1 [facility] Comment on above: Performed By: #### L 500.3400, L100.0100, L500.2500 ####[facility] [address] [place], [address] Sodium [Moles/Vol] 138 mmol/L Normal 133-145 [facility] Comment on above: Performed By: #### L 500.3400, L100.0100, L500.2500 ####[facility] [address] [place], [address] Urea nitrogen [Mass/Vol] 9 mg/dL Normal 4-19 [facility] Comment on above: Performed By: #### L 500.3400, L100.0100, L500.2500 ####[facility] [address] [place], [address] Basophil percentageOrdered B y: Jose Guadalupe Puckett on 03-17-2025 Basophils/100 WBC (Bld) 0.1 % 0-1 [facility] CBC W/Diff, Automatedon 02-20 Absolute Lymph 1.48 X10 3/uL Normal 0.83-4.51 [facility] Comment on above: Performed By: #### L 500.3400, L100.0100, L500.2500 #### [facility] [address] [place], [address] Absolute Neut 9.6 X10 3/uL High 2.0-7.7 [facility] Comment on above: Performed By: #### L 500.3400, L100.0100, L500.2500 #### [facility] [address] [place], [address] Basophils/100 WBC (Bld) 0.1 % Normal 0-1 [facility] Comment on above: Performed By: #### L 500.3400, L100.0100, L500.2500 #### [facility] [address] [place], [address] Eosinophils/100 WBC (Bld) 0.0 % Normal 0-5 [facility] Comment on above: Performed By: #### L 500.3400, L100.0100, L500.2500 #### [facility] [address] [place], [address] Erythrocyte distribution width (RBC) [Ratio] 13.2 % Normal 11.6-14.6 [facility] Comment on above: Performed By: #### L 500.3400, L100.0100, L500.2500 #### [facility] [address] [place], [address] Hematocrit (Bld) [Volume fraction] 43.5 % Normal 40-54 [facility] Comment on above: Performed By: #### L 500.3400, L100.0100, L500.2500 #### [facility] [address] [place], [address] Hemoglobin (Bld) [Mass/Vol] 15.2 g/dL Normal 13.0-16.5 [facility] Comment on above: Performed By: #### L 500.3400, L100.0100, L500.2500 #### [facility] [address] [place], [address] IG% 0.400 Normal 0.0-0.9 [facility] Comment on above: Result Comment: IG% - Immature Granulocytes (promyelocytes, myelocytes and metamyelocytes) > 1% indicates that a LEFT SHIFT is Present. Performed By: #### L 500.3400, L100.0100, L500.2500 #### [facility] [address] [place], [address] Lymphocytes/100 WBC (Bld) 12.9 % Low 19-41 [facility] Comment on above: Performed By: #### L 500.3400, L100.0100, L500.2500 #### [facility] [address] [place], [address] MCH (RBC) [Entitic mass] 28.1 pg Normal 27.0-32.0 [facility] Comment on above: Performed By: #### L 500.3400, L100.0100, L500.2500 #### [facility] [address] [place], [address] MCHC (RBC) [Mass/Vol] 34.9 g/dL Normal 32-36 [facility] Comment on above: Performed By: #### L 500.3400, L100.0100, L500.2500 #### [facility] [address] [place], [address] MCV (RBC) [Entitic vol] 80.6 fL Normal 80-94 [facility] Comment on above: Performed By: #### L 500.3400, L100.0100, L500.2500 #### [facility] [address] [place], [address] Monocytes/100 WBC (Bld) 3.1 % Normal 0-10 [facility] Comment on above: Performed By: #### L 500.3400, L100.0100, L500.2500 #### [facility] [address] [place], [address] Neutrophils/100 WBC (Bld) 83.5 % High 47-70 [facility] Comment on above: Performed By: #### L 500.3400, L100.0100, L500.2500 #### [facility] [address] [place], [address] Nucleated RBC (Bld) [#/Vol] 0 10*3/uL Normal 0-5 [facility] Comment on above: Performed By: #### L 500.3400, L100.0100, L500.2500 #### [facility] [address] [place], [address] Platelet mean volume (Bld) [Entitic vol] 10.7 fL Normal 6.2-12.0 [facility] Comment on above: Performed By: #### L 500.3400, L100.0100, L500.2500 #### [facility] [address] [place], [address] Platelets (Bld) [#/Vol] 242 10*3/uL Normal 150-450 [facility] Comment on above: Performed By: #### L 500.3400, L100.0100, L500.2500 #### [facility] [address] [place], [address] RBC (Bld) [#/Vol] 5.40 10*6/uL Normal 4.6-6.2 [facility] Comment on above: Performed By: #### L 500.3400, L100.0100, L500.2500 #### [facility] [address] [place], [address] RDW SD 38.0 fl Normal 35.1-43.9 [facility] Comment on above: Performed By: #### L 500.3400, L100.0100, L500.2500 #### [facility] [address] [place], [address] WBC (Bld) [#/Vol] 11.5 10*3/uL High 4.4-11.0 [facility] Comment on above: Performed By: #### L 500.3400, L100.0100, L500.2500 #### [facility] [address] [place], [address] Carbon dioxide, total [Moles /volume] in Central venous bloodOrdered By: Jose Guadalupe Puckett on 03-17-2025 CO2 [Moles/Vol] 19.5 mmol/L Low 21.0-32.0 [facility] Chloride assayOrdered By: Gillian Puckett on 03-17-2025 Chloride [Moles/Vol] 105 mmol/L 98-108 [facility] Eosinophil percentageOrdered By: Jose Guadalupe Puckett on 03-17-2025 Eosinophils/100 WBC (Bld) 0.0 % 0-5 [facility] Erythrocyte distribution wid th ratioOrdered By: Jose Guadalupe Puckett on 03-17-2025 Erythrocyte distribution width (RBC) [Ratio] 13.2 % 11.6-14.6 [facility] Erythrocyte distribution wid th standard deviationOrdered By: Jose Guadalupe Puckett on 03-17-2025 Erythrocyte distribution width (RBC) [Ratio] 38.0 fl 35.1-43.9 [facility] Glomerular filtration rate ( GFR) estimation/1.73 sq m using serum, plasma, or whole bOrdered By: Jose Guadalupe Puckett on 03-17-2025 GFR/1.73 sq M.predicted among non-blacks MDRD (S/P/Bld) [Vol rate/Area] 101 mL/min/{1.73_m2} >60 [facility] Comment on above: mL/min/1.73m2 CKD-EP I Creatinine Equation (2020) Hematocrit Auto (Bld) [Volum e fraction]Ordered By: Jose Guadalupe Puckett on 03-17-2025 Hematocrit (Bld) [Volume fraction] 43.5 % 40-54 [facility] Hemoglobin measurementOrdere d By: Jose Guadalupe Puckett on 03-17-2025 Hemoglobin (Bld) [Mass/Vol] 15.2 g/dL 13.0-16.5 [facility] Immature granulocytes/100 WB C Auto (Bld)Ordered By: Jose Guadalupe Puckett on 03-17-2025 Immature granulocytes/100 WBC (Bld) 0.400 % 0.0-0.9 [facility] Comment on above: IG% - Immature Granu locytes (promyelocytes, myelocytes and metamyelocytes) > 1% indicates that a LEFT SHIFT is Present. Liver Profileon 03-17-2025 ALT [Catalytic activity/Vol] 865 U/L High <=46 [facility] Comment on above: Performed By: #### L 500.3400, L100.0100, L500.2500 ####[facility] [address] [place], [place], [id number] MCV (mean corpuscular volume ) determinationOrdered By: Jose Guadalupe Puckett on 03-17-2025 MCV (RBC) [Entitic vol] 80.6 fL 80-94 [facility] Mean corpuscular hemoglobin (MCH) determinationOrdered By: Jose Guadalupe Puckett on 03-17-2025 MCH (RBC) [Entitic mass] 28.1 pg 27.0-32.0 [facility] Mean corpuscular hemoglobin concentration (MCHC) determinationOrdered By: Jose Guadalupe Puckett on 03-17-2025 MCHC (RBC) [Mass/Vol] 34.9 g/dL 32-36 [facility] Mean platelet volume determi nationOrdered By: Jose Guadalupe Puckett on 03-17-2025 Platelet mean volume (Bld) [Entitic vol] 10.7 fL 6.2-12.0 [facility] Monocyte percentageOrdered B y: Jose Guadalupe Pcukett on 03-17-2025 Monocytes/100 WBC (Bld) 3.1 % 0-10 [facility] Neutrophil percentageOrdered By: Jose Guadalupe Puckett on 03-17-2025 Neutrophils/100 WBC (Bld) 83.5 % High 47-70 [facility] Nucleated red blood cell per centageOrdered By: Jose Guadalupe Puckett on 03-17-2025 Nucleated RBC/100 WBC (Bld) [Ratio] 0 % 0-5 [facility] Platelet countOrdered By: Gillian Puckett on 03-17-2025 Platelets (Bld) [#/Vol] 242 10*3/uL 150-450 [facility] Potassium measurement (mass/ volume)Ordered By: Jose Guadalupe Puckett on 03-17-2025 Potassium (Unsp spec) [Mass/Vol] 4.0 mmol/L 3.3-5.1 [facility] RBC Auto (Bld) [#/Vol]Ordere d By: Jose Guadalupe Puckett on 03-17-2025 RBC (Bld) [#/Vol] 5.40 10*6/uL 4.6-6.2 [facility] Serum creatinine measurement (mass/volume)Ordered By: Jose Guadalupe Puckett on 03-17-2025 Creatinine [Mass/Vol] 0.92 mg/dL 0.70-1.20 [facility] Serum glucose measurement (m ass/volume)Ordered By: Jose Guadalupe Puckett on 03-17-2025 Glucose [Mass/Vol] 125 mg/dL High 70-99 [facility] Serum or plasma calcium carlos urement (mass/volume)Ordered By: Jose Guadalupe Puckett on 03-17-2025 Calcium [Mass/Vol] 9.0 mg/dL 7.6-11.0 [facility] Serum or plasma urea nitroge n measurement (mass/volume)Ordered By: Jose Guadalupe Puckett on 03-17-2025 Urea nitrogen [Mass/Vol] 9 mg/dL 4-19 [facility] Sodium levelOrdered By: Yury Puckett on 03-17-2025 Sodium [Moles/Vol] 138 mmol/L 133-145 [facility] White blood cell (WBC) count Ordered By: Jose Guadalupe Puckett on 03-17-2025 WBC (Bld) [#/Vol] 11.5 10*3/uL High 4.4-11.0 [facility] 12 Lead EKGon 03-16-2025 12 Lead EKG [facility] Cardi[facility] Services [address] [place] [address] 12 Lead EKG 03/16/25 1044 MR#: [id number] Acct: [id number] Name: ALONDRA ARITA Rep #: [id number] : 1975 49 From: Constantin Acosta MD Attending Dr: Dr. Jose Guadalupe Puckett MD Status: DIS IN Ordering Dr: Lucretia Bear DO Date: 03/16/25 [place] [facility] [place] Sex: M C Admitted: 03/16/25 Test Reason : GENERAL Blood Pressure : */* mmHG Vent. Rate : 76 BPM Atrial Rate : 76 BPM P-R Int : 170 ms QRS Dur : 76 ms QT Int : 354 ms P-R-T Axes : 51 18 38 degrees QTcB Int : 398 ms Normal sinus rhythm with sinus arrhythmia Normal ECG Confirmed by CONSTANTIN ACOSTA ([id number]), multimedia editor CARI OLIVARES ([id number]) on 03/19/2025 9:11:15 AM Referred By: Confirmed By: CONSTANTIN ACOSTA 03/19/25910 Date Constantin Acosta MD CC: Dr. Lucretia Bear DO; Dr. Jose Guadalupe Puckett MD; No Primary Care Physician Signed Normal [facility] Bilirubin Test strip Ql (U)O rdered By: Lucretia Bear on 03-16-2025 Bilirubin Ql (U) Negative Negative [facility] Bilirubin, Directon 03-16-20 Bilirubin.direct [Mass/Vol] 0.73 mg/dL High 0.00-0.30 [facility] Comment on above: Result Comment: Hemo lysis present, Results??could be affected. ?? Performed By: #### L 501.4700 ####[facility] [address] [place], [address] CBC W/Diff, Automatedon 09-2 -2024 Absolute Lymph 1.58 X10 3/uL Normal 0.83-4.51 [facility] Comment on above: Performed By: #### L 100.0100, L500.4050, L501.2450 #### [facility] [address] [place], [address] Absolute Neut 6.8 X10 3/uL Normal 2.0-7.7 [facility] Comment on above: Performed By: #### L 100.0100, L500.4050, L501.2450 #### [facility] [address] [place], [address] Basophils/100 WBC (Bld) 0.4 % Normal 0-1 [facility] Comment on above: Performed By: #### L 100.0100, L500.4050, L501.2450 #### [facility] [address] [place], [address] Eosinophils/100 WBC (Bld) 1.0 % Normal 0-5 [facility] Comment on above: Performed By: #### L 100.0100, L500.4050, L501.2450 #### [facility] [address] [place], [address] Erythrocyte distribution width (RBC) [Ratio] 12.7 % Normal 11.6-14.6 [facility] Comment on above: Performed By: #### L 100.0100, L500.4050, L501.2450 #### [facility] [address] [place], [address] Hematocrit (Bld) [Volume fraction] 48.0 % Normal 40-54 [facility] Comment on above: Performed By: #### L 100.0100, L500.4050, L501.2450 #### [facility] [address] [place], [address] Hemoglobin (Bld) [Mass/Vol] 17.0 g/dL High 13.0-16.5 [facility] Comment on above: Performed By: #### L 100.0100, L500.4050, L501.2450 #### [facility] [address] [place], [address] IG% 0.400 Normal 0.0-0.9 [facility] Comment on above: Result Comment: IG% - Immature Granulocytes (promyelocytes, myelocytes and metamyelocytes) > 1% indicates that a LEFT SHIFT is Present. Performed By: #### L 100.0100, L500.4050, L501.2450 #### [facility] [address] [place], [address] Lymphocytes/100 WBC (Bld) 17.5 % Low 19-41 [facility] Comment on above: Performed By: #### L 100.0100, L500.4050, L501.2450 #### [facility] [address] [place], [address] MCH (RBC) [Entitic mass] 28.7 pg Normal 27.0-32.0 [facility] Comment on above: Performed By: #### L 100.0100, L500.4050, L501.2450 #### [facility] [address] [place], [address] MCHC (RBC) [Mass/Vol] 35.4 g/dL Normal 32-36 [facility] Comment on above: Performed By: #### L 100.0100, L500.4050, L501.2450 #### [facility] [address] [place], [address] MCV (RBC) [Entitic vol] 80.9 fL Normal 80-94 [facility] Comment on above: Performed By: #### L 100.0100, L500.4050, L501.2450 #### [facility] [address] [place], [address] Monocytes/100 WBC (Bld) 4.8 % Normal 0-10 [facility] Comment on above: Performed By: #### L 100.0100, L500.4050, L501.2450 #### [facility] [address] [place], [address] Neutrophils/100 WBC (Bld) 75.9 % High 47-70 [facility] Comment on above: Performed By: #### L 100.0100, L500.4050, L501.2450 #### [facility] [address] [place], [address] Nucleated RBC (Bld) [#/Vol] 0 10*3/uL Normal 0-5 [facility] Comment on above: Performed By: #### L 100.0100, L500.4050, L501.2450 #### [facility] [address] [place], [address] Platelet mean volume (Bld) [Entitic vol] 10.6 fL Normal 6.2-12.0 [facility] Comment on above: Performed By: #### L 100.0100, L500.4050, L501.2450 #### [facility] [address] [place], [address] Platelets (Bld) [#/Vol] 237 10*3/uL Normal 150-450 [facility] Comment on above: Performed By: #### L 100.0100, L500.4050, L501.2450 #### [facility] [address] [place], [address] RBC (Bld) [#/Vol] 5.93 10*6/uL Normal 4.6-6.2 [facility] Comment on above: Performed By: #### L 100.0100, L500.4050, L501.2450 #### [facility] [address] [place], [address] RDW SD 37.0 fl Normal 35.1-43.9 [facility] Comment on above: Performed By: #### L 100.0100, L500.4050, L501.2450 #### [facility] [address] [place], [address] WBC (Bld) [#/Vol] 9.0 10*3/uL Normal 4.4-11.0 [facility] Comment on above: Performed By: #### L 100.0100, L500.4050, L501.2450 #### [facility] [address] [place], [address] CT Abd/Pelvis W/WO Contrasto n 03-16-2025 CT Abd/Pelvis W/WO Contrast [facility] Imaging Services [address] [place] [address] CT Abd/Pelvis W/WO Contrast MR#: [id number] Acct: [id number] Name: ALONDRA ARITA Rep #: [id number] : 1975 M 49 From: Justo Ortega MD PCP: Care Physician,No Primary Status: ADM IN Study: CT Abd/Pelvis W/WO Contrast Date of Exam: 02/20 12/13 Exam# [id number] Ordering Dr: Jose Guadalupe Puckett MD PROCEDURE: CT ABD/PELVIS W/WO CONTRAST 03/16/2025 REASON FOR EXAM: LIVER LESION ABOUT 4CM IN LIVER US TECHNIQUE: Procedure Code: [id number] Modality: CT Procedure: CT ABD/PELVIS W/WO CONTRAST Coronal and Sagittal reconstruction series were provided. CONTRAST: Isovue 370 VOLUME: 90 mL One or more dose reduction techniques were used (e.g., Automated exposure control, adjustment of the mA and/or kV according to patient size, use of iterative reconstruction technique. RADIATION DOSE SUMMARY: CTDlvol: 100 mGy DLP: 3192 mGycm COMPARISON: Recent ultrasound. FINDINGS: Lung bases: Mild dependent atelectasis ABDOMEN Liver: Mild diffuse fatty infiltration of the liver. Focal lesion in the right lobe of liver which does enhance vividly on the arterial images and partially fills in on delayed images. This has a central area with diminished enhancement. This lesion has similar enhancement to remainder of the liver on delayed images. No other lesions. Biliary system: Negative. Negative for intrahepatic or extrahepatic ductal dilatation. Gallbladder: Contains numerous stones. Negative for cholecystitis. Spleen: Negative. Pancreas: Negative. Adrenals: Negative. Kidneys: Negative. Negative for kidney stones, cysts or masses. Bowel: Diverticulosis. Negative for small or large-bowel obstruction. Appendix: Negative. Vasculature: Negative for atherosclerotic vascular calcifications of the abdominal aorta and its branches. Peritoneum / Retroperitoneum: Negative. Bones and Soft Tissues: Age appropriate degenerative changes of the lumbar spine hips and pelvis. Pelvis: Prostate negative. Soft tissue pelvis negative. No inguinal or iliac adenopathy. CT/CT Abd/Pelvis W/WO Contrast IMPRESSION: Fatty liver. Well-defined lesion right lobe of liver favor focal nodular hyperplasia. Follow-up MR of the abdomen with Eovist in 4-6 months to confirm stability possibly helpful. Reading Location: [id number] CC: Dr. Jose Guadalupe Puckett MD; No Primary Care Physician Clam Shovel Operator: Signed Normal [facility] Comprehensive Metabolic Prof ilon 03-16-2025 Albumin [Mass/Vol] 4.7 g/dL Normal 3.5-5.0 [facility] Comment on above: Performed By: #### L 100.0100, L500.4050, L501.2450 #### [facility] [address] [place], [place], [id number] Albumin/Globulin [Mass ratio] 1.6 {ratio} Normal 0.9-2.4 [facility] Comment on above: Performed By: #### L 100.0100, L500.4050, L501.2450 #### [facility] [address] [place], [address] ALK PHOS 64 U/L Normal 40-129 [facility] Comment on above: Performed By: #### L 100.0100, L500.4050, L501.2450 #### [facility] [address] [place], [address] ALT [Catalytic activity/Vol] 370 U/L High <=46 [facility] Comment on above: Performed By: #### L 100.0100, L500.4050, L501.2450 #### [facility] [address] [place], [address] AST [Catalytic activity/Vol] 525 U/L High <=37 [facility] Comment on above: Result Comment: Hemo lysis present, Results??could be affected. ?? Performed By: #### L 100.0100, L500.4050, L501.2450 #### [facility] [address] [place], [address] Bilirubin [Mass/Vol] 1.60 mg/dL High 0.00-1.30 [facility] Comment on above: Performed By: #### L 100.0100, L500.4050, L501.2450 #### [facility] [address] [place], [address] BUN/CRE 13.1 RATIO Normal 10-20 [facility] Comment on above: Performed By: #### L 100.0100, L500.4050, L501.2450 #### [facility] [address] [place], [address] Calcium [Mass/Vol] 10.4 mg/dL Normal 7.6-11.0 [facility] Comment on above: Performed By: #### L 100.0100, L500.4050, L501.2450 #### [facility] [address] [place], [address] Chloride [Moles/Vol] 104 mmol/L Normal 98-108 [facility] Comment on above: Performed By: #### L 100.0100, L500.4050, L501.2450 #### [facility] [address] [place], [address] CO2 [Moles/Vol] 20.3 mmol/L Low 21.0-32.0 [facility] Comment on above: Performed By: #### L 100.0100, L500.4050, L501.2450 #### [facility] [address] [place], [address] Creatinine [Mass/Vol] 1.02 mg/dL Normal 0.70-1.20 [facility] Comment on above: Performed By: #### L 100.0100, L500.4050, L501.2450 #### [facility] [address] [place], [address] ECRCL 102.77 ml/min Normal 50-250 [facility] Comment on above: Performed By: #### L 100.0100, L500.4050, L501.2450 #### [facility] [address] [place], [address] GAP 14 Normal 5-15 [facility] Comment on above: Performed By: #### L 100.0100, L500.4050, L501.2450 #### [facility] [address] [place], [address] GFR/1.73 sq M.predicted among non-blacks MDRD (S/P/Bld) [Vol rate/Area] 90 mL/min/{1.73_m2} Normal >60 [facility] Comment on above: Result Comment: mL/m in/1.73m2 CKD-EPI Creatinine Equation (2020) Performed By: #### L 100.0100, L500.4050, L501.2450 #### [facility] [address] [place], [address] Globulin (S) [Mass/Vol] 2.9 g/dL Normal 2.2-4.2 [facility] Comment on above: Performed By: #### L 100.0100, L500.4050, L501.2450 #### [facility] [address] [place], [address] Glucose [Mass/Vol] 118 mg/dL High 70-99 [facility] Comment on above: Performed By: #### L 100.0100, L500.4050, L501.2450 #### [facility] [address] [place], [address] Potassium [Moles/Vol] 4.2 mmol/L Normal 3.3-5.1 [facility] Comment on above: Result Comment: Hemo lysis present, Results??could be affected. ?? Performed By: #### L 100.0100, L500.4050, L501.2450 #### [facility] [address] [place], [address] Sodium [Moles/Vol] 138 mmol/L Normal 133-145 [facility] Comment on above: Performed By: #### L 100.0100, L500.4050, L501.2450 #### [facility] [address] [place], [address] T PROT 7.5 g/dL Normal 5.9-8.4 [facility] Comment on above: Performed By: #### L 100.0100, L500.4050, L501.2450 #### [facility] [address] [place], [address] Urea nitrogen [Mass/Vol] 13 mg/dL Normal 4-19 [facility] Comment on above: Performed By: #### L 100.0100, L500.4050, L501.2450 #### [facility] [address] [place], [address] ERCP Biliary Onlyon 03-16-20 ERCP Biliary Only [facility] Imaging Services [address] [place] [address] ERCP Biliary Only MR#: [id number] Acct: [id number] Name: ALONDRA ARITA Rep #: [id number] : 1975 M 49 From: Chino Elliott MD PCP: Care Physician,No Primary Status: ADM IN Study: ERCP Biliary Only Date of Exam: 03/16/25 Exam# [id number] Ordering Dr: Yevgeniy Sarah DO EXAM: ERCP INTRAOPERATIVE FLUOROSCOPY CLINICAL HISTORY: ERCP; pain COMPARISON: Right ankle radiographs from 08/12/2014 TECHNIQUE: 10 intraoperative fluoroscopic images are submitted for review. FINDINGS: Patient is status post ERCP, which demonstrates grossly normal caliber of the intra and extrahepatic biliary ductal system, without evidence for stricture or filling defects to indicate choledocholithiasis. Total fluoroscopy time 91.1 seconds. Total radiation dose 36.45 mGy. RAD/ERCP Biliary Only IMPRESSION: Intraoperative fluoroscopy status post ERCP, as above. Reading Location: [id number] CC: No Primary Care Physician; Yevgeniy Sarah DO Clam Shovel Operator: Signed Normal [facility] ERCP Reporton 03-16-2025 ERCP Report [facility] Medical Records Department [address] [place] [address] ERCP Report MR#: [id number] Acct: [id number] Name: ALONDRA ARITA Rep #: [id number] : 1975 49 From: Yevgeniy Sarah DO PCP: Care Physician,No Primary Status:ADM IN Patient Name: Alondra Arita Procedure Date: 03/16/2025 3:24 PM Date of : 1975 Age: 49 Procedure: ERCP Indications: Common bile duct stone(s), Abdominal pain of suspected biliary origin, For therapy of bile duct stone(s), Elevated liver enzymes Providers: Yevgeniy Sarah DO Medicines: Monitored Anesthesia Care Patient Profile: This is a 49 year old male. Refer to note in patient chart for documentation of history and physical. Patient has symptoms of acute abdominal cramping, acute right upper quadrant abdominal pain and acute nausea. This patient has no history of previous ERCP. This patient has no history of surgical alteration of the upper digestive tract anatomy. Complications: No immediate complications. Procedure: Pre-Anesthesia Assessment: - Prior to the procedure, a History and Physical was performed, and patient medications and allergies were reviewed. The patient is competent. The risks and benefits of the procedure and the sedation options and risks were discussed with the patient. All questions were answered and informed consent was obtained. Patient identification and proposed procedure were verified by the physician in the pre-procedure area. Mental Status Examination: alert and oriented. Airway Examination: normal oropharyngeal airway and neck mobility. Respiratory Examination: clear to auscultation. CV Examination: normal. ASA Grade Assessment: II - A patient with mild systemic disease. After reviewing the risks and benefits, the patient was deemed in satisfactory condition to undergo the procedure. The anesthesia plan was to use monitored anesthesia care (MAC). Immediately prior to administration of medications, the patient was re-assessed for adequacy to receive sedatives. The heart rate, respiratory rate, oxygen saturations, blood pressure, adequacy of pulmonary ventilation, and response to care were monitored throughout the procedure. The physical status of the patient was re-assessed after the procedure. After obtaining informed consent, the scope was passed under direct vision. Throughout the procedure, the patient's blood pressure, pulse, and oxygen saturations were monitored continuously. The Duodenoscope was introduced through the mouth, and advanced to the duodenum and used to inject contrast into the bile duct. The ERCP was accomplished without difficulty. The patient tolerated the procedure well. Scope In: 4:00:46 PM Scope Out: 4:19:56 PM Total Procedure Duration Time 0 hours 19 minutes 10 seconds Findings: The special effects makeup artist film was normal. The esophagus was successfully intubated under direct vision. The scope was advanced to a normal major papilla in the descending duodenum without detailed examination of the pharynx, larynx and associated structures, and upper GI tract. The upper GI tract was grossly normal. A long 0.025 inch Jagwire was passed into the biliary tree. The short-nosed traction sphincterotome was passed over the guidewire and the bile duct was then deeply cannulated. Contrast was injected. I personally interpreted the bile duct images. There was brisk flow of contrast through the ducts. Image quality was adequate. Contrast extended to the entire biliary tree. Opacification of the entire opacified area, main bile duct, common bile duct, cystic duct, common hepatic duct, hepatic duct bifurcation, left and right hepatic ducts and all intrahepatic branches and entire biliary tree was successful. The maximum diameter of the ducts was 9 mm. The main bile duct contained multiple stones, the largest of which was 4 mm in diameter. The main bile duct was moderately dilated, with a stone causing an obstruction. The largest diameter was 9 mm. A 5 mm biliary sphincterotomy was made with a braided traction (standard) sphincterotome using ERBE electrocautery. There was no post-sphincterotomy bleeding. The biliary tree was swept with a 12 mm balloon starting at the cystic duct, bifurcation, left intrahepatic duct(s), left main hepatic duct, right intrahepatic duct(s) and right main hepatic duct. No cystic duct stones were removed. One cystic duct stone remained. Sludge was swept from the duct. All stones were removed. One 10 Fr by 7 cm temporary stent was placed 5 cm into the common bile duct. Bile flowed through the stent. The stent was in good position. Impression: - The entire main bile duct was moderately dilated, with a stone causing an obstruction. - Choledocholithiasis was found. Partial removal was accomplished with biliary sphincterotomy; a stent was (more content not included)... Normal [facility] Emergency Department Summary on 03-16-2025 Emergency Department Summary [facility] Medical Records Department [address] [place] [address] Emergency Department Summary 03/16/25 MR#: [id number] Acct: [id number] Name: ALONDRA ARITA Rep #: [id number] : 1975 49 From: Lucretia Bear DO PCP: Care Physician,No Primary Status:ADM IN Location: [place] [address] HPI HPI - GI History of Present Illness Chief Complaint: Abd Pain Informant: patient Narrative Narrative: Patient is a 49-year-old male with no significant past medical history presenting with worsening upper abdominal pain. has been having issues with epigastric/right upper quadrant abdominal pain for some time and self diagnosed himself with gallstone/gallbladder problems. most recently had episode about 2 weeks ago where he had relatively severe pain in her right upper quadrant after eating a particularly fatty meal that lasted for about 3 hours. States since then he has been watching his diet. Last night he had [employer] (a burrito and chalupa) around 6 PM and then around 10 PM had a cold cut sandwich and glass of iced tea. States that around 1:30 AM he started to have pain in his upper abdomen area that is more in the middle but goes across his whole upper abdomen. Denies any radiation to his back or chest. Has associated nausea. States the pain is not as sharp as has been before but is more dull in nature. Took 2 Tums around 6 AM with no significant relief. States he has not had anything to eat or drink today. Notes the pain is better if he hunches over and worse if he sits up straight. Notes he has been taking antacids more frequently lately. Denies any black or blood in his stool. Nuys any change in his bowel movements. Denies a history of any abdominal surgeries. Thinks when he is a teenager he maybe had some gastritis but does not recall the details. Does not have any known history of stomach ulcers. No fevers or chills reported. No other complaints or concerns at this time [facility] Medical History GERD (gastroesophageal reflux disease) Medical History no medical history Allergy/AdvReac Type Severity Reaction Status Date / Time No Known Allergies Allergy Verified 03/16/25 13:09 Social History Smoking Status: Never smoker ROS ROS ED Constitutional Constitutional ED: Denies chills or fever(s) Respiratory/Chest Respiratory/Chest: Denies cough Gastrointestinal Gastrointestinal: Reports abdominal pain and nausea; Denies constipation, diarrhea, melena or vomiting Genitourinary Genitourinary ED: Denies dysuria or hematuria Musculoskeletal Musculoskeletal: Denies arthralgias, back pain or myalgias Integumentary Denies rash Neurologic Neurologic: Denies weakness EXAM Physical Exam Const Vital Signs: 03/16/25 09:32 03/16/25 11:32 03/16/25 12:30 Temperature 97.2 F L 98.7 F Temperature Source Temporal Pulse Rate 100 75 68 Respiratory Rate 14 18 18 Blood Pressure 153/88 H 113/73 121/78 H Blood Pressure Mean 109 86 92 Pulse Ox 99 97 98 Oxygen Delivery Method Room Air Room Air Positive well nourished and well developed General Appearance ED: well developed; Negative for pallor HEENT normocephalic and atraumatic Eyes General Eye ED: Negative for pale conjunctiva or scleral icterus Neck supple and no JVD Resp normal respiratory effort and clear to auscultation bilaterally Cardio regular rate, regular rhythm and no murmurs GI non-distended GI Narrative: Mild epigastric abdominal tenderness, not highly reproduced on exam. Points to his right upper quadrant really as the area of his pain usually. Negative Flores sign. Inspection: Negative for abdominal distention Auscultation: normoactive bowel sounds Palpation: soft Back/Spine no CVA tenderness Extremity full ROM Neuro moves all extremities Sensorium / Orientation: alert Psych mental status grossly normal Skin no wounds General Skin Exam: Negative for jaundice or pallor MDM MDM MDM Narrative Medical decision making narrative: Patient evaluated for upper abdominal pain. Ports that history intermittent episodes of pain concerning for possible biliary colic. Differential also includes choledocholithiasis, acute cholecystitis, pancreatitis as well as gastritis/peptic ulcer disease. Patient's physical exam is relatively benign with a negative Flores sign. CBC coags normal. CMP does show an elevation of his total bilirubin as well as elevation of AST and ALT concerning for possible obstructive process. Direct bilirubin is added which is elevated. Lipase is normal. Urinalysis and is largely normal with negative bilirubin. Right upper quadrant ultrasound does not shows acute cholecystitis but does show some abn (more content not included)... Normal [facility] Gallbladderon 03-16-2025 Gallbladder [facility] Imaging Services [address] [place] [address] Gallbladder MR#: [id number] Acct: [id number] Name: ALONDRA ARITA Rep #: [id number] : 1975 M 49 From: Farzana Early MD PCP: Care Physician,No Primary Status: REG ER Study: Gallbladder Date of Exam: 03/16/25 Exam# [id number] Ordering Dr: Lucretia Bear DO PROCEDURE: GALLBLADDER 03/16/2025 REASON FOR EXAM: RUQ PAIN TECHNIQUE: Procedure Code: USGB Modality: US Procedure: GALLBLADDER. Real-time ultrasound of the right upper quadrant with image documentation. COMPARISON: None. FINDINGS: LIVER ECHOGENICITY: Diffuse increase in hepatic parenchymal echogenicity. SIZE: Enlarged measuring 17.5 cm in length. CONTOUR: Smooth. MASS: Hypoechoic 3.9 x 3.1 x 3.7 cm lesion in the right lobe with internal vascularity. PORTAL VEIN: Normal direction hepatopetal portal venous flow. GALLBLADDER SIZE: Normal. STONES: Multiple. SLUDGE: None. WALL THICKNESS: Normal measuring 1.6 mm. Echogenic intramural foci producing comet tail reverberation artifact, suggest gallbladder adenomyomatosis. PERICHOLECYSTIC FLUID: None. SONOGRAPHIC FLORES'S SIGN: Negative. BILE DUCTS: Distended CBD measuring 7.0 mm in diameter. PANCREAS: Unremarkable as visualized. The distal pancreas is obscured by overlying bowel gas. RIGHT KIDNEY: Normal size and echogenicity with a length of 11.6 cm. No hydronephrosis, nephrolithiasis, cyst or mass seen. ASCITES/EFFUSIONS: None. OTHER: None. US/Gallbladder IMPRESSION: 1. Enlarged hyperechoic liver, suggesting hepatic steatosis, although other diffuse liver diseases can have this appearance. 2. Hypoechoic lesion in the right liver. A follow-up liver protocol CT or MRI is recommended to further evaluate. 3. Cholelithiasis without signs of acute cholecystitis. 4. Findings suggesting gallbladder adenomyomatosis. 5. Distended common bile duct, without an obstructing lesion seen. Reading Location: [id number] CC: Dr. Lucretia Bear DO; No Primary Care Physician Clam Shovel Operator: Signed Normal [facility] H AND P Exam - [facility]iston 03-16-2025 H&P Exam - Hospitalist [facility] Medical Records Department [address] [place] [address] H P Exam - Hospitalist 03/16/25 1334 MR#: [id number] Acct: [id number] Name: ALONDRA ARITA Rep #: [id number] : 1975 49 From: Jose Guadalupe Puckett MD PCP: Care Physician,No Primary Status:ADM IN Location: [facility]3 [id number] HPI - General General Date of Admission: 03/16/25 Date of Service: 03/16/25 Chief Complaint: Right upper quadrant abdominal pain started at 1:30 AM today. No relief HPI Narrative ALONDRA ARITA, is a 49 M with history of intermittent right upper quadrant pain for 5 years probably GB colic, once every 2 to 4 months came to the ED when he got right upper quadrant pain, gnawing in type , long-lasting did not get better since 1:30 AM today. Patient stated previous episode, used to get better in a half an hour but this time it was not getting better. He said he never had been evaluated by previous episodes of abdominal pain continues to get better with Motrin. No fever, nausea but no vomiting. Pain is more about her right upper and epigastric region ,localized with no radiation. In ED, right upper quadrant shows cholelithiasis, CBD dilatation, liver lesion, described in assessment plan. PENDING SALE TO [facility] Medical History GERD (gastroesophageal reflux disease) Medical History no medical history Allergy/AdvReac Type Severity Reaction Status Date / Time No Known Allergies Allergy Verified 03/16/25 13:09 Social History Smoking Status: Never smoker ROS ROS Narrative Constitutional: Reports fatigue and weakness. No fever. HEENT: Reports systems reviewed and no addt'l complaints, except as documented Respiratory/Chest: No smoking. No acute shortness of breath or respiratory distress or wheezing. CVS: No chest pain pressure tightness. Denies chronic cardiac disease Gastrointestinal: Rest as described in HPI. Bowel movements are normal. Denies coffee ground emesis, hematemesis or vomiting Genitourinary: Denies burning urination or new urinary tract symptoms Musculoskeletal: Denies acute joint pain or limited range of motion. No acute injury Neurologic: Denies seizure-like symptoms. skin: No ulcer. No rash Endocrinology: Reports systems reviewed and no addt'l complaints, except as documented Hematologic/Lymphatic: Reports systems reviewed and no addt'l complaints, except as documented Rest 14 ROS are negative except as mentioned in HPI Vital Signs Vital Signs Vital Signs: 03/16/25 09:32 03/16/25 11:32 03/16/25 12:30 Temperature 97.2 F L 98.7 F Temperature Source Temporal Pulse Rate 100 75 68 Respiratory Rate 14 18 18 Respiratory Effort Respiratory Depth Respiratory Pattern Blood Pressure 153/88 H 113/73 121/78 H Blood Pressure Mean 109 86 92 Blood Pressure Source Blood Pressure Position Blood Pressure Location Pulse Ox 99 97 98 Oxygen Delivery Method Room Air Room Air 03/16/25 13:03 03/16/25 13:12 Temperature 98 F Temperature Source Oral Pulse Rate 72 Respiratory Rate 18 Respiratory Effort Normal Respiratory Depth Normal Respiratory Pattern Normal Blood Pressure 146/98 H Blood Pressure Mean 114 Blood Pressure Source Monitor Blood Pressure Position Sitting Blood Pressure Location Left Forearm Pulse Ox 97 Oxygen Delivery Method Room Air Room Air Weight Weight: 234 lb Body Mass Index (BMI) 25.7 Physical Exam Narrative General: Alert, Oriented x3, Cooperative. BMI 25.7 kg/m??? HEENT: Atraumatic, PERRLA, EOMI, Normocephalic. Oral: Oral mucosa dry. No Gingival or Mucosal Lesions/ Ulcerations Neck: Supple, No JVD, Negative Carotid Bruits Chest wall/Lungs: Air entry equal in bilateral lung bases. No crepitation/rhonchi Cardiovascular: Regular rate and rhythm, Normal S1,S2, No M/G/R Abdomen: Bowel Sounds sluggish, Soft, mild tenderness right upper quadrant and epigastric region. No distention : No dysuria. No renal angle tenderness. No suprapubic tenderness. Extremities: No edema, Capillary Refill Less than 3 Seconds Skin: No rashes, No breakdown Musculoskeletal: No Tenderness to Palpation of Joints or Extremities Neurological: Cranial nerves II-XII grossly intact, DTR 2+/4. No acute focal neurological deficit. Psych/Mental Status: Normal Affect, Appropriate. Results Lab / Micro Data 03/16/25 09:54 03/16/25 09:54 Labs: Laboratory Results - last 24 hr 03/16/25 09:54: WBC 9.0, RBC 5.93, Hgb 17.0 H, Hct 48.0, MCV 80.9, MCH 28.7, MCHC 35.4, RDW Std Deviation 37.0, RDW Coeff of Ghulam 12.7, Plt Count 237, MPV 10.6, Immature Gran % (Auto) 0.400, Neut % (Auto) 75.9 H, Lymph % (Auto) 17.5 L, Stanly % (Auto) 4.8, Eos % (Auto) 1.0, Baso % (Auto) 0.4, Ab (more content not included)... Normal [facility] normalized rat io (INR) calculationOrdered By: Jose Guadalupe Puckett on 03-16-2025 INR Coag (Bld) [Relative time] 1.0 {INR} [facility] Ketones Test strip Ql (U)Ord ered By: Lucretia Bear on 03-16-2025 Ketones Ql (U) Negative Negative [facility] Lipaseon 03-16-2025 Lipase [Catalytic activity/Vol] 50 U/L Normal [facility] Comment on above: Result Comment: Cris elizalde note: LIPASE revised reference range effective 22. New Lipase methodology. Expected to produce lower values than the previous assay method. NEW Reference Range: 13 - 75 U/L Performed By: #### L 100.0100, L500.4050, L501.2450 #### [facility] [address] [facility] [place], [address] Lipase measurementOrdered By : Lucretia Bear on 03-16-2025 Lipase [Catalytic activity/Vol] 50 U/L [facility] Comment on above: Please note:LIPASE r evised reference range effective 22. New Lipase methodology. Expected to produce lower values than the previous assay method. NEW Reference Range: 13 - 75 U/L MR/CON.PCM.GIon 03-16-2025 MR/CON.PCM.GI [facility] Medical Records Department [address] [place] [address] Consultation - GI 03/16/25 1537 MR#: [id number] Acct: [id number] Name: ALONDRA ARITA Rep #: [id number] : 1975 49 From: Yevgeniy Sarah DO PCP: Care Physician,No Primary Status:ADM IN [facility] Consult Data Date of Consult: 03/16/25 HPI Narrative HPI Narrative: ALONDRA ARITA, is a 49-year-old male with no significant past medical history presenting with worsening upper abdominal pain. States has been having issues with epigastric/right upper quadrant abdominal pain for some time and self diagnosed himself with gallstone/gallbladder problems. He states most recently had episode about 2 weeks ago where he had relatively severe pain in her right upper quadrant after eating a particularly fatty meal that lasted for about 3 hours. States since then he has been watching his diet. Last night he had Taco [employer] (a burrito and chalupa) around 6 PM and then around 10 PM had a cold cut sandwich and glass of iced tea. States that around 1:30 AM he started to have pain in his upper abdomen area that is more in the middle but goes across his whole upper abdomen. He denies any radiation to his back or chest. Has associated nausea. States the pain is not as sharp as has been before but is more dull in nature. Took 2 Tums around 6 AM with no significant relief. Total Bilirubin 1.60 H, Direct Bilirubin 0.73 H, AST 525 H, ALT 370 H, Alkaline Phosphatase 64 PFSH Medical History GERD (gastroesophageal reflux disease) Medical History no medical history Allergy/AdvReac Type Severity Reaction Status Date / Time No Known Allergies Allergy Verified 03/16/25 13:09 Social History Smoking Status: Never smoker ROS Constitutional Constitutional: Denies fatigue, fever(s), poor appetite, weight gain or weight loss Gastrointestinal Gastrointestinal: Denies belching, bloating, change in bowel habits, change in stool character, chewing difficulty, coffee ground emesis, constipation, cramping, diarrhea, dyspepsia, dysphagia, early satiety, excessive flatus, fecal incontinence, heartburn, hematemesis, hematochezia, hemorrhoids, loose stools, melena, nausea, odynophagia, rectal bleeding, tenesmus, vomiting or weight changes Physical Exam Const alert, oriented x3, no apparent distress and healthy appearing General Appearance: cooperative GI normal to inspection, nondistended, normoactive bowel sounds, soft to palpation, non-tender and non- distended Percussion: normal to percussion Rectal Exam: deferred Lab / Micro Data 03/16/25 09:54 03/16/25 09:54 Labs: Laboratory Results - last 24 hr 03/16/25 09:54: WBC 9.0, RBC 5.93, Hgb 17.0 H, Hct 48.0, MCV 80.9, MCH 28.7, MCHC 35.4, RDW Std Deviation 37.0, RDW Coeff of Ghulam 12.7, Plt Count 237, MPV 10.6, Immature Gran % (Auto) 0.400, Neut % (Auto) 75.9 H, Lymph % (Auto) 17.5 L, Stanly % (Auto) 4.8, Eos % (Auto) 1.0, Baso % (Auto) 0.4, Absolute Neuts (auto) 6.8, Absolute Lymphs (auto) 1.58, Nucleated RBC % 0, PT 13.3, INR 1.0, Sodium 138, Potassium 4.2, Chloride 104, Carbon Dioxide 20.3 L, Anion Gap 14, BUN 13, Creatinine 1.02, Estim Creat Clear Calc 102.77, Est GFR (MDRD) Non-Af 90, BUN/Creatinine Ratio 13.1, Glucose 118 H, Calcium 10.4, Total Bilirubin 1.60 H, Direct Bilirubin 0.73 H, AST 525 H, ALT 370 H, Alkaline Phosphatase 64, Total Protein 7.5, Albumin 4.7, Globulin 2.9, Albumin/Globulin Ratio 1.6, Lipase 50 03/16/25 10:37: Urine Color Yellow, Urine Clarity Sl. Cloudy, Urine pH 6.0, Ur Specific [place] 1.010, Urine Protein Negative, Urine Glucose (UA) Normal, Urine Ketones Negative, Urine Occult Blood 10 H, Urine Nitrite Negative, Urine Bilirubin Negative, Urine Urobilinogen Normal, Ur Leukocyte Esterase Negative, Urine RBC 0 SEEN, Urine WBC 0 SEEN, Ur Squamous Epith Cells 0 SEEN, Urine Bacteria 0 SEEN, Urine Mucus 0 SEEN Imaging Radiology Impression Gallbladder Ultrasound 03/16/25 10:30 IMPRESSION: 1. Enlarged hyperechoic liver, suggesting hepatic steatosis, although other diffuse liver diseases can have this appearance. 2. Hypoechoic lesion in the right liver. A follow-up liver protocol CT or MRI is recommended to further evaluate. 3. Cholelithiasis without signs of acute cholecystitis. 4. Findings suggesting gallbladder adenomyomatosis. 5. Distended common bile duct, without an obstructing lesion seen. Reading Location: [id number] Abdomen/Pelvis CT 03/16/25 12:05 IMPRESSION: Fatty liver. Well-defined lesion right lobe of liver favor focal nodular hyperplasia. Follow-up MR of the abdomen with Eovist in 4-6 months to confirm (more content not included)... Normal [facility] MR/OP.PROVATon 03-16-2025 [facility] Medical Records Department [address] [place] [address] Provation Physician Letter MR#: [id number] Acct: [id number] Name: ALONDRA ARITA Rep #: [id number] : 1975 49 From: Yevgeniy Sarah DO PCP: Care Physician,No Primary Status:ADM IN 03/16/2025 No Primary Care Physician Re : ERCP procedure for Alondra Arita Dear Care Physician This procedure was performed on Wednesday, March 16, 2025. My impressions and recommendations are as follows: Impressions : - The entire main bile duct was moderately dilated, with a stone causing an obstruction. - Choledocholithiasis was found. Partial removal was accomplished with biliary sphincterotomy; a stent was inserted. - A biliary sphincterotomy was performed. - The biliary tree was swept. - One temporary stent was placed into the common bile duct. Recommendations : My findings are described in the full procedure note, which is enclosed. If I can be of further assistance, please feel free to contact me at . Sincerely, Yevgeniy Sarah DO 03/16/2025 4:35:16 PM This report has been signed electronically. 03/16/25 1635 Date Yevgeniy Toussaint Signature: Date (if indicated) CC: TEASELERMaliha Green; TEASELERMaliha Pavon; Dr. Jose Guadalupe Puckett MD; MERE Robles; No Primary Care Physician; Yevgeniy Sarah DO Date Dictated: 03/16/25 1524 Date Transcribed: Clam Shovel Operator: RF Signed [facility] MR/POSTOP.ANE 03-16-2025 MR/POSTOP.[facility] Medical Records Department [address] [place] [address] Anesthesia Postop Eval I 03/16/25 1638 MR#: [id number] Acct: [id number] Name: ALONDRA ARITA Rep #: [id number] : 1975 49 From: Rich Polo MD PCP: Care Physician,No Primary Status:DIS IN Y Race: C Location: [place] [address] Anesthesia: Postop Eval I Current Vital Signs Temperature: 97.7 F Pulse Rate: 76 Blood Pressure: 95/52 Respiratory Rate: 16 Pulse Ox: 93 Oxygen Delivery Method: Room Air Assessment Airway patent: Yes Spontaneous unlabored respirations: Yes nausea: No Vomiting: No Anesthesia Complication: No Fluid Hydration Crystalloid volume administer (ml): 400 Total IV fluid infused: 400 Progress Note Anesthesia document: Postop Eval 1 completed: Yes 03/20/25 0856 Date Rich Ploo MD 03/26/25 0724 Cosigner Signature: Date Dusty Wilson CRNA CC: Signed [facility] MR/[id number] 03-16-2025 [facility] Medical Records Department [address] [facility] [address] Anesthesia Postop Eval II 03/16/25 1655 MR#: [id number] Acct: [id number] Name: ALONDRA ARITA Rep #: [id number] : 1975 49 From: Armando Gomez MD PCP: Care Physician,No Primary Status:ADM IN Y Race: C Location: [place] [id number] Anesthesia Postop Eval I Sum Anesthesia Postop Eval I Summary Anesthesia Postop Eval I Summary: Anesthesia Postop Eval I: Assessment Summary Airway patent Spontaneous unlabored respirations Mental status nausea Vomiting Anesthesia Postop Eval I: Fluid Summary Crystalloid volume administer (ml) Colloids volume administered ( ml) Blood Product volume administered (ml) Total IV fluid infused Anesthesia Postop Eval I: Summary Notes Anesthesia Complication Anesthesia Complication Comment: Post-operative progress note Anesthesia: Postop Eval II Evaluation Mental status: Awake and Calm Pain Level: 1 nausea: No Vomiting: No Complications Anesthesia Complication: No 03/16/251654 Date Armando Gomez MD Cosigner Signature: Date CC: Signed Normal [facility] Microscopic analysis of urin e for red blood cells (RBC)Ordered By: Lucretia Bear on 03-16-2025 Microscopic analysis of urine for red blood cells (RBC) 0 SEEN /hpf 0-5 [facility] Mucus LM Ql (Urine sed)Order ed By: Lucretia Bear on 03-16-2025 Mucus Ql (Urine sed) 0 SEEN /hpf [facility] Nitrite Test strip Ql (U)Ord ered By: Lucretia Bear on 03-16-2025 Nitrite Ql (U) Negative Negative [facility] O.R. Fluoro for C-Bentley 02-20 O.R. Fluoro for C-Arm [facility] Imaging Services [address] [place] [address] O.R. Fluoro for C-Arm MR#: [id number] Acct: [id number] Name: ALONDRA ARITA Rep #: [id number] : 1975 M 49 From: Chion Elliott MD PCP: Care Physician,No Primary Status: ADM IN Study: O.R. Fluoro for C-Arm Date of Exam: 03/16/25 Exam# [id number] Ordering Dr: Yevgeniy Sarah DO EXAM: ERCP INTRAOPERATIVE FLUOROSCOPY CLINICAL HISTORY: ERCP; pain COMPARISON: Right ankle radiographs from 08/12/2014 TECHNIQUE: 10 intraoperative fluoroscopic images are submitted for review. FINDINGS: Patient is status post ERCP, which demonstrates grossly normal caliber of the intra and extrahepatic biliary ductal system, without evidence for stricture or filling defects to indicate choledocholithiasis. Total fluoroscopy time 91.1 seconds. Total radiation dose 36.45 mGy. RAD/O.R. Fluoro for C-Arm IMPRESSION: Intraoperative fluoroscopy status post ERCP, as above. Reading Location: [id number] CC: No Primary Care Physician; Yevgeniy Sarah DO Clam Shovel Operator: Signed Normal [facility] Protein Test strip Ql (U)Ord ered By: Lucretia Bear on 03-16-2025 Protein Ql (U) Negative Negative [facility] Prothrombin Time w/INRon INR Coag (PPP) [Relative time] 1.0 {INR} Normal [facility] Comment on above: Performed By: #### L 300.2080 #### [facility] [address] [place], [address] PT Coag (PPP) [Time] 13.3 s Normal 11.7-14.9 [facility] Comment on above: Performed By: #### L 300.6909 #### [facility] [address] [place], [place], [id number] Prothrombin timeOrdered By: Jose Guadalupe Puckett on 03-16-2025 PT Coag (PPP) [Time] 13.3 s 11.7-14.9 [facility] Serum or plasma albumin/glob ulin mass ratioOrdered By: Lucretia Bear on 03-16-2025 Albumin/Globulin [Mass ratio] 1.6 {ratio} 0.9-2.4 [facility] Squamous epithelial cells de tection in urine sediment by light microscopyOrdered By: Lucretia Bear on 03-16-2025 Epithelial cells.squamous LM Ql (Urine sed) 0 SEEN /hpf 0-5 [facility] Urinalysis, Completeon 03-16 BACTERIA 0 SEEN Normal None Seen [facility] Comment on above: Order Comment: HOA CTOR TO SPECIFY Performed By: #### L 400.0001 ####[facility] [address] [place], [place], [phone] EPI,SQUAMOUS 0 SEEN Normal 0-5 [facility] Comment on above: Order Comment: HOA CTOR TO SPECIFY Performed By: #### L 400.0001 ####[facility] [address] [facility] [address] Mucus Ql (Urine sed) 0 SEEN Normal [facility] Comment on above: Order Comment: HOA CTOR TO SPECIFY Performed By: #### L 400.0001 ####[facility] [address] [place], [address] RBC 0 SEEN Normal 0-5 [facility] Comment on above: Order Comment: HOA CTOR TO SPECIFY Performed By: #### L 400.0001 ####[facility] [address] [place], [address] WBC 0 SEEN Normal 0-5 [facility] Comment on above: Order Comment: HOA CTOR TO SPECIFY Performed By: #### L 400.0001 ####[facility] [address] [place], [address] Urine clarityOrdered By: Celestina Bear on 03-16-2025 Clarity (U) Sl. Cloudy Clear [facility] Urine color determinationOrd ered By: Lucretia Bear on 03-16-2025 Color (U) Yellow Yellow [facility] Urine glucose detectionOrder ed By: Lucretia Bear on 03-16-2025 Glucose Ql (U) Normal mg/dl Normal [facility] Urine leukocyte esterase det ection by dipstickOrdered By: Lucretia Bear on 03-16-2025 Leukocyte esterase Test strip Ql (U) Negative Negative [facility] Urine pHOrdered By: Lucretia henry on 03-16-2025 pH (U) 6.0 [pH] 5.0 - 8.0 [facility] Urine sediment bacteria coun t by microscopy (number/high power field)Ordered By: Lucretia Bear on 03-16-2025 Bacteria LM.HPF (Urine sed) [#/Area] 0 /[HPF] None Seen [facility] Urine specific gravity measu rementOrdered By: Lucretia Bear on 03-16-2025 Specific gravity (U) [Rel density] 1.010 1.002-1.030 [facility] Urine urobilinogen measureme ntOrdered By: Lucretia Bear on 03-16-2025 Urobilinogen Ql (U) Normal mg/dl Normal [facility] White blood cell countOrdere d By: Lucretia Bear on 03-16-2025 White blood cell count 0 SEEN /hpf 0-5 [facility] Vital Signs Date Time Vital Sign Value Performing Clinician Kimmy stearns 03-23-2025 08:49-0400 Body height 170.18 cm No Primary Care Physician [facility] 03-23-2025 08:49-0400 Body mass index (BMI) [Ratio] 36.2 kg/m2 No Primary Care Physician [facility] 03-23-2025 08:49-0400 Body temperature 97.2 [degF] No Primary Care Physician [facility] 03-23-2025 08:49-0400 Body weight 105 kg No Primary Care Physician [facility] 03-23-2025 08:49-0400 Diastolic blood pressure 74 mm[Hg] No Primary Care Physician [facility] 03-23-2025 08:49-0400 Heart rate 78 /min No Primary Care Physician [facility] 03-23-2025 08:49-0400 Respiratory rate 18 /min No Primary Care Physician [facility] 03-23-2025 08:49-0400 SaO2% (BldA) [Mass fraction] 99 % No Primary Care Physician [facility] 03-23-2025 08:49-0400 Systolic blood pressure 108 mm[Hg] No Primary Care Physician [facility] 03-20-2025 08:56-0400 Body temperature 97.7 [degF] No Primary Care Physician [facility] 03-20-2025 08:56-0400 Diastolic blood pressure 52 mm[Hg] No Primary Care Physician [facility] 03-20-2025 08:56-0400 Heart rate 76 /min No Primary Care Physician [facility] 03-20-2025 08:56-0400 Respiratory rate 16 /min No Primary Care Physician [facility] 03-20-2025 08:56-0400 SaO2% (BldA) [Mass fraction] 93 % No Primary Care Physician [facility] 03-20-2025 08:56-0400 Systolic blood pressure 95 mm[Hg] No Primary Care Physician [facility] 03-18-2025 06:00-0400 Body mass index (BMI) [Ratio] 26 kg/m2 No Primary Care Physician [facility] 03-18-2025 06:00-0400 Body weight 107.2 kg No Primary Care Physician [facility] 03-16-2025 13:04-0400 Body height 203.2 cm No Primary Care Physician [facility] Encounters Encounter Date Encounter Type Care Provider Facility Start: 04-04-2025 End: 04-04-2025 ambulatory No Primary Care Physician Facility:[facility] Start: 03-23-2025 End: 03-23-[address] Abbie Philip MD -[facility] Work Phone: Start: 03-23-2025 End: 03-23-2025 ambulatory No Primary Care Physician -[facility] Start: 03-18-2025 Non-patient / Non-visit Dr. Jose Guadalupe Puckett MD -[facility] Work Phone: Start: 03-17-2025 Non-patient / Non-visit Dr. Jose Guadalupe Puckett MD -[facility] Work Phone: Start: 03-16-2025 Non-patient / Non-visit Yevgeniy Soliman nd DO -[facility] Start: 03-16-2025 Non-patient / Non-visit Dr. Jose Guadalupe Puckett MD -[facility] Work Phone: Start: 03-16-2025 ambulatory Landry Mendoza Fac ility:[facility] Start: 03-16-2025 End: 03-18-2025 Evaluation and management of inpatient Dr. Jose Guadalupe Puckett MD -[facility] Work Phone: Procedures Date Procedure Procedure Detail Performing Clinician Start: 03-17-2025 Estimated creatinine clearance No Primar y Care Physician Start: 03-16-2025 End: 03-16-2025 Endoscopic retrograde cholangiopancreatography No Primary Care Physician Start: 03-16-2025 Fluoroscopic guidance No Primary Care Physician Start: 03-16-2025 End: 03-16-2025 Fluoroscopy guided endoscopic retrograde cholangiopancreatography No Primary Care Physician Start: 03-16-2025 Computed tomography of abdomen and pelvis with contrast No Primary Care Physician Start: 03-16-2025 Urnls dip stick/tablet reagent auto microscopy No Primary Care Physician Start: 03-16-2025 US scan of gallbladder No Primary Care Physician Plan of Treatment Date Care Activity Detail Author Start: 03-18-2025 Patient discharge [facility] Start: 03-16-2025 Application of inter mittent pneumatic compression device [facility] Start: 03-16-2025 Ambulation without limitation [facility] Start: 03-16-2025 Assessment of risk o f venous thromboembolism [facility] Start: 03-16-2025 Insertion of cathete r into peripheral vein [facility] Start: 03-16-2025 Measuring intake and output [facility] Start: 03-16-2025 Oxygen therapy [facility] Start: 03-16-2025 Providing care accor ding to standard [facility] Start: 03-16-2025 Provision of activit y privileges [facility] Start: 03-16-2025 Referral for physica l therapy [facility] Start: 03-16-2025 Referral to gastroen terology service [facility] Start: 03-16-2025 Referral to occupati onal therapist [facility] Start: 03-16-2025 Following clinical p athway protocol [facility] Start: 03-16-2025 End: 03-16-2025 [facility] Start: 03-16-2025 Admission procedure [facility] Patient Education Soft Diet Ch D c Low-Fat Cooking Tips Soft Craig Diet Dc [facility] Work Phone: Immunizations Immunization Date Immunization Notes Care Provider Fa cility 03-17-2025 influenza, seasonal, injectable, preservative free No Primary Care Physician [facility] Payers Date Payer Category Payer Self-pay 2025 Unknown [id number] Unknown [id number] 2.16.8 [id number] Unknown [id number] 2.16.8 [id number] Unknown [id number] 2.16.8 [id number] Unknown [id number] 2.16.8 [id number] Unknown [id number] 2.16.8 [id number] Unknown [id number] 2.16.8 [id number] Unknown [id number] 2.16.8 [id number] Unknown [id number] 2.16.8 [id number] Social History Date Type Detail Facility Start: 03-16-2025 End: 03-23-2025 Tobacco smoking status NHIS Never smoked tobacco (finding) [facility] Sex Male [facility] Start: 1975 Sex Assigned At Male [facility] Medical Equipment Procedure Code Equipment Code Equipment Origin al Text Equipment Identifier Dates ERCP (endoscopic retrograde cholangiopancreatog ricky) STENT,RX PLASTIC BILIARY 10X7 FDA Start: 03-16-2025 ERCP (endoscopic retrograde cholangiopancreatog ricky) STENT,RX PLASTIC BILIARY 10X7 FDA Start: 03-16-2025 ERCP (endoscopic retrograde cholangiopancreatog ricky) STENT,RX PLASTIC BILIARY 10X7 FDA Start: 03-16-2025 Goals Date Patient Goal Desired Activity /State Functional Status Date Assessment Result Facility 03-18-2025 Functional status Ambulates [facility] Work Phone: Mental Status Date Assessment Result Facility 03-18-2025 Cognitive function Voice/Name [facility] Work Phone: Clinical Notes 03-16-2025 to 04-04-2025 Note Date & Type Note Facility 04-04-2025 Note [facility] Medical Records Department [address] [place] [address] History Physical Exam 04/04/25 1154 MR#: [id number] Acct: [id number] Name: ALONDRA ARITA Rep #: [id number] : 1975 49 From: Abbie Philip MD PCP: Care Physician,No Primary Status:[facility] Location: [place] [address] History and Physical Date of Admission: 04/04/25 Date of Service: 03/23/25 MR#: [id number] Acct: [id number] Name: ALONDRA ARITA Rep #: [id number] : 1975 Provider: Dr. Abbie Philip MD Age/Sex: 49/M Location: [facility] Status: Signed Intake Vital Signs 03/16/2513:04 03/23/2508:49 Height 6 ft 8 in 5 ft 7 in Weight: 231 lb 8 oz BMI 36.2 BP 108/74 Blood Pressure Location Rt brachial Position Sitting Respiration 18 Pulse 78 Pulse Source Monitor Temp 97.2 F L Temp Source Temporal Pulse Oximetry (%) 99 Oxygen Delivery Method room air Intake Visit Reasons: DISCUSS LAP/ROBOTIC CYNDIE Chief Complaint: discuaa cholecystectomy Is patient in pain?: Yes (epigastric ) Allergies No Known Allergies Allergy (Verified 03/23/25 08:51) PFSH Medical History (Updated 03/23/25 @ 16:[address] Abbie Philip MD) Nausea Abdominal pain GERD (gastroesophageal reflux disease) Social History (Updated 03/23/25 @ 08:49 by OLYA Lewis Smoking Status: Never smoker alcohol intake: never substance use type: does not use HPI HPI HPI: 49-year-old male presents for cholelithiasis status post ERCP due to choledocholithiasis. Patient was hospitalized mid last week was found to have choledocholithiasis. Patient currently states he still has about a 2/10 discomfort epigastric/right upper quadrant. Patient states it does get worse with eating however he is following a low-fat diet. Patient states previous to coming in he was having reflux daily with burning of the esophagus. Patient is currently not on any PPIs. Patient CT abdomen pelvis did show a large gallstone in the gallbladder and his ERCP showed a couple small stones still in the cystic duct. Patient did have some elevation in liver profile which did improve during hospitalization. ROS General General: No weight change, appetite, fatigue, colon cancer, breast cancer or weakness HEENT HEENT: No difficulty swallowing, eye injury, eye surgery, swollen glands or hoarseness Endo Endocrine: No thyroid disease, diabetes mellitus, thyroid cancer, Hair loss, heat intolerance or cold intolerance Skin Skin: No rash or changing moles Musc Musculoskeletal: No back problems, arthritis, rheumatoid arthritis, gout or joint pain Cardio Cardiovascular: No murmur, pacemaker, heart disease, atrial fibrillation, high blood pressure, heart attack, heart stent, palpitations, shortness of breath with exertion or chest pain Psych Psychiatric: No depression, anxiety or hearing voices Resp Respiratory: No shortness of breath, No sleep apnea, No cough, No COPD, No asthma, No emphysema and No wheezing Gastro Gastrointestinal: Yes abdominal pain, Yes nausea or vomiting, No diarrhea, No constipation, No blood in stool, No acid reflux, No hemorrhoids, No ulcers, Yes gallbladder problem and No black,tarry stools Juan Antonio Hematologic: No blood thinners, No blood disorders, No bleeding, No anemia and No blood clots Neuro Neurologic: No numbness, No tingling and No weakness Exam Const General: cooperative, healthy appearing, comfortable and no acute distress [facility] Head: normocephalic and atraumatic Neck Neck: supple Resp Effort Inspection: normal respiratory effort Cardio Rate: regular rate GI Inspection: non-distended Palpation: soft, and nontender (Unable to produce tenderness on exam) Skin General: no rashes or lesions noted Neuro General: CN's II-XI intact bilaterally Extrem General: normal to inspection Psych Mental Status: mental status grossly normal Attitude: cooperative Assessment and Plan Assessment and Plan (1) Cholelithiasis: Status: Acute (2) GERD (gastroesophageal reflux disease): Status: Acute Medications: New omeprazole swallow whole; do not crush, chew, dissolve, cut, break 40 mg PO QDAY 30 caps 3RF Discontinued amoxicillin-pot clavulanate 875-125 mg Discontinued Reason: Pt no longer taking 1 TAB PO BID 10 tabs 0RF sennosides-docusate sodium 8.6-50 mg (Stimulant Laxative Plus) Discontinued Reason: Pt no longer taking 2 tabs PO BID PRN PRN 0 tabs 0RF Constipation Plan Patient is currently not on a PPI we will send a prescription for omeprazole. Reviewed the anatomy with the patient and discussed the procedure: Robotic/la (more content not included)... [facility] 03-18-2025 Consult note [facility] 03-18-2025 Procedure note [facility] 03-18-2025 Procedure note [facility] 03-18-2025 Discharge summary Note Date/Time March 18, 2025 9:46am [facility] Medical Records Department [address] [place] [address] Discharge Summary 03/18/25 0940 MR#: [id number] Acct: [id number] Name: ALONDRA ARITA Rep #:[id number] : 1975 49 From: Jose Guadalupe White PCP: Care Physician,No Primary Status :ADM IN Location: [place] [address] Providers Date of Admission: 03/16/25 Date of Discharge: 03/18/25 Primary Care Physician: No Primary Care Phys Consultations 03/16/25 13:32 Consult: Gastroenterology Routine Consulting Provider: [facility] Reason for Consult: choledocholithiasis EMERGENT Consult: No MD Notified: Yes Date Notified: 03/16/25 Time Notified: 13:14 Method of Notification: ED Physician Initiated Reason For Visit: GB COLIC PAIN Diagnosis Discharge Diagnosis (1) Cholelithiasis with acute on chronic cholecystitis: Status: Acute Code(s): K80.12 - Calculus of gallbladder with acute and chronic cholecystitis without obstruction Plan 49-year-old gentleman came to ED with right upper and epigastric abdominal pain since 1:30 AM today with nausea. 1. Acute on chronic GB colic with cholelithiasis with suspicion of choledocholithiasis: Patient is being admitted to [facility] floor. RUQ sonogram shows cholelithiasis without signs of acute cholecystitis. 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 GB reported normal in size with multiple stones, wall thickness 1.6 cm with echogenic intraluminal foci present, comet artifact suggesting of GB adenomyomatosis. No pericholecystic fluid. Clinically patientdoes not have fever, leukocytosis therefore suspicion of acute cholecystitis less likely. Dr. Sarah consulted for ERCP. I discussed with surgeon Dr. Philip and she states she will follow peripherally but will need follow-up in surgery office for interval cholecystectomy as there is a big stone with possible central trapped air as seen on CT scan. 03/17: Discussed with the surgeon. Plan for office follow-up in 2 weeks after discharge. As transaminases are elevated but total bilirubin same probably mildirritation due to ERCP therefore we will keep the patient today. Continue IV antibiotic. Clear liquid, advance as per tolerated to full and soft diet. The patient does not seem to have cholecystitis features either clinically or radiologically. Mild increase in WBC count probably after reactive ERCP. ERCP on 03/16 Impression: - The entire main bile duct was moderately dilated, with a stone causing an obstruction. - Choledocholithiasis was found. Partial removal was accomplished with biliary sphincterotomy; a stent was inserted. - A biliary sphincterotomy was performed. - The biliary tree was swept. - One temporary stent was placed into the common bile duct. 03/18: Abdominal pain/discomfort minimal with some sore throat from ERCP. Able to tolerate full liquid diet advance to soft diet. Follow-up with Dr. Philip in 1 week. Follow-up in GI office/Dr. Leiva in 1 month. Liver chemistry shows improvement in AST and ALT. Total bilirubin 0.85, direct 0.41 normal range ALP 65 normal. Empirically patient discharged on 5 more days of Augmentin to complete a 1 week of antibiotic. Advised OTC Tylenol and probiotic admission discharge instructions. 2. Suspected Acute liver injury from cholelithiasis/and suspected choledocholithiasis: No previous lab to compare. Total bili 1.6, TB 0.73 AST 525, ALT 370, ALP normal. Lipase 50. 03/18: Liver chemistry including TB shows improvement 3. Liver lesion suspected benign lesion focal nodular hyperplasia and diffuse hepatic steatosis/MASLD/MASH: Ultrasound shows hypoechoic lesion in the right liver for which CT triple phase was done. It shows focal lesion right lobe of liver which enhance on the arterial image with partially fills on delayed images. There is central area with diminished enhancement. Lesion had similar enhancement to remainder of the liver on delayed images. It favors more focal nodular hyperplasia. Liver ultrasound shows enlarged hyperechoic liver suggestive of hepatic steatosis 03/17: Focal nodular hyperplasia explained to the patient and his . Benign developmental malformation liver lesion. 03/18 follow-up in GI office after month. 4. Unknown past medical history but patient denies hypertension or diabetes mellitus. He does not have PCP. Never smoker. Does not drink alcohol. No substance use. 03/17: Explained to the patient advised that he needs to establish PCP. 5. DVT prophylaxis, moderate risk on Lovenox 40 mg subcu daily Living will/advanced directive/end of life care: Patient does not have living will or advanced directive. After discussion of benefits/risks procedures involved with full code, DNR CC arrest and DNR CC, the patient opted for full code. Patient does want artificial life support including intubation, tube feed, ventilator and/chest compression, central venous catheter, vasopressor and DC shock if needed Total time spent in [id number] encounter in discussion of advanced directive 17 minutes. Discharge medication reconciliation done. Discharge follow-up instructions completed. Discharge process discussed with the patient and all questions wereanswered to patient's satisfaction. Follow with PCP in 1 to 2 weeks Total time spent, exact 35 minutes on discharge meds reconciliation, examination, coordination of care with nurses and ancillary staff, review of imaging and blood test and discussion with the patient on follow-up instructions. Laboratory Results 03/16/25 09:54: WBC 9.0, RBC 5.93, Hgb 17.0 H, Hct 48.0, MCV 80.9, MCH 28.7, MCHC 35.4, RDW Std Deviation 37.0, RDW Coeff of Ghulam 12.7, Plt Count 237, MPV 10.6, Immature Gran % (Auto) 0.400, Neut % (Auto) 75.9 H, Lymph % (Auto) 17.5 L,Stanly % (Auto) 4.8, Eos % (Auto) 1.0, Baso % (Auto) 0.4, Absolute Neuts (auto) 6.8, Absolute Lymphs (auto) 1.58, Nucleated RBC % 0, PT 13.3, INR 1.0, Sodium 138, Potassium 4.2, Chloride 104, Carbon Dioxide 20.3 L, Anion Gap 14, BUN 13, Creatinine 1.02, Estim Creat Clear Calc 102.77, Est GFR (MDRD) Non-Af 90, BUN/Creatinine Ratio 13.1, Glucose 118 H, Calcium 10.4, Total Bilirubin 1.60 H, Direct Bilirubin 0.73 H, AST 525 H, ALT 370 H, Alkaline Phosphatase 64, Total Protein 7.5, Albumin 4.7, Globulin 2.9, Albumin/Globulin Ratio 1.6, Lipase 50 03/16/25 10:37: Urine Color Yellow, Urine Clarity Sl. Cloudy, Urine pH 6.0, Ur Specific [place] 1.010, Urine Protein Negative, Urine Glucose (UA) Normal, UrineKetones Negative, Urine Occult Blood 10 H, Urine Nitrite Negative, Urine Bilirubin Negative, Urine Urobilinogen Normal, Ur Leukocyte Esterase Negative, Urine RBC 0 SEEN, Urine WBC 0 SEEN, Ur Squamous Epith Cells 0 SEEN, Urine Bacteria 0 SEEN, Urine Mucus 0 SEEN Laboratory Results 03/16/25 09:54: PT 13.3, INR 1.0, Direct Bilirubin 0.73 H 03/17/25 05:47: WBC 11.5 H, RBC 5.40, Hgb 15.2, Hct 43.5, MCV 80.6, MCH 28.1, MCHC 34.9, RDW Std Deviation 38.0, RDW Coeff of Ghulam 13.2, Plt Count 242, MPV 10.7, Immature Gran % (Auto) 0.400, Neut % (Auto) 83.5 H, Lymph % (Auto) 12.9 L,Stanly % (Auto) 3.1, Eos % (Auto) 0.0, Baso % (Auto) 0.1, Absolute Neuts (auto) 9.6 H, Absolute Lymphs (auto) 1.48, Nucleated RBC % 0, Sodium 138, Potassium 4.0, Chloride 105, Carbon Dioxide 19.5 L, Anion Gap 13, BUN 9, Creatinine 0.92, Estim Creat Clear Calc 130.43, Est GFR (MDRD) Non-Af 101, BUN/Creatinine Ratio 9.9 L, Glucose 125 H, Calcium 9.0, Total Bilirubin 1.56 H, Direct Bilirubin 0.91H, AST 618 H, ALT 865 H, Alkaline Phosphatase 72, Total Protein 6.8, Albumin 4.2, Globulin 2.6 Clinical Impression(s) from Imaging Studies Gallbladder Ultrasound 03/16/25 10:30 IMPRESSION: 1. Enlarged hyperechoic liver, suggesting hepatic steatosis, although other diffuse liver diseases can have this appearance. 2. Hypoechoic lesion in the right liver. A follow-up liver protocol CT or MRI is recommended to further evaluate. 3. Cholelithiasis without signs of acute cholecystitis. 4. Findings suggesting gallbladder adenomyomatosis. 5. Distended common bile duct, without an obstructing lesion seen. Abdomen/Pelvis CT 03/16/25 12:05 IMPRESSION: Fatty liver. Well-defined lesion right lobe of liver favor focal nodular hyperplasia. Follow-up MR of the abdomen with Eovist in 4-6 months to confirm stability possibly helpful. Reading Location: [id number] Medications at Discharge Home Medications amoxicillin 875 mg-potassium clavulanate 125 mg tablet 1 tab PO BID #10 tabs 03/18/25 sennosides 8.6 mg-docusate sodium 50 mg tablet (Stimulant Laxative Plus) 2 tab PO BID PRN PRN Constipation #0 tabs 03/18/25 Hospital Course Summary of Care Provided Hospital Course: Laboratory Results 03/18/25 03:29: Total Bilirubin 0.85, Direct Bilirubin 0.40 H, AST 222 H, ALT 573 H, Alkaline Phosphatase 65, Total Protein 6.5, Albumin 3.9, Globulin 2.7 Clinical Impression(s) from Imaging Studies Gallbladder Ultrasound 03/16/25 10:30 IMPRESSION: 1. Enlarged hyperechoic liver, suggesting hepatic steatosis, although other diffuse liver diseases can have this appearance. 2. Hypoechoic lesion in the right liver. A follow-up liver protocol CT or MRI is recommended to further evaluate. 3. Cholelithiasis without signs of acute cholecystitis. 4. Findings suggesting gallbladder adenomyomatosis. 5. Distended common bile duct, without an obstructing lesion seen. Reading Location: [facility] Abdomen/Pelvis CT 03/16/25 12:05 IMPRESSION: Fatty liver. Well-defined lesion right lobe of liver favor focal nodular hyperplasia. Follow-up MR of the abdomen with Eovist in 4-6 months to confirm stability possibly helpful. Reading Location: [facility] C-Arm Fluoroscopy 03/16/25 15:55 IMPRESSION: Intraoperative fluoroscopy status post ERCP, as above. Reading Location: [facility] ERCP X-Ray 03/16/25 15:55 IMPRESSION: Intraoperative fluoroscopy status post ERCP, as above. Reading Location: [facility] Physical Exam Narrative Seen and examined. Abdominal pain has improved but is still mild epigastric/RUQ discomfort and withmild sore throat from ERCP. Liver chemistry shows improvement in transaminases. T. bili and ALP normal. No fever. Tolerated soft liquid Physical exam: General: Alert, Oriented x3, Cooperative. BMI 25.7 kg/m? HEENT: Atraumatic, PERRLA, EOMI, Normocephalic. Oral: Oral mucosa dry. No Gingival or Mucosal Lesions/ Ulcerations Neck: Supple, No JVD, Negative Carotid Bruits Chest wall/Lungs: Air entry equal in bilateral lung bases. No crepitation/rhonchi Cardiovascular: Regular rate and rhythm, Normal S1,S2, No M/G/R Abdomen: Bowel Sounds sluggish, Soft, mild discomfort over right upper quadrant and epigastric region. No distention : No dysuria. No renal angle tenderness. No suprapubic tenderness. Extremities: No edema, Capillary Refill Less than 3 Seconds Skin: No rashes, No breakdown Musculoskeletal: No Tenderness to Palpation of Joints or Extremities Neurological: Cranial nerves II-XII grossly intact, DTR 2+/4. No acute focal neurological deficit. Psych/Mental Status: Normal Affect, Appropriate. Weight / BMI Weight Weight: 236 lb 5.369 oz Body Mass Index (BMI) 26.0 ABG / Lab / Microbiology Data 03/17/25 05:47 09/27/25 05:47 Laboratory: Laboratory Results - last 24 hr 03/18/25 03:29: Total Bilirubin 0.85, Direct Bilirubin 0.40 H, AST 222 H, ALT 573 H, Alkaline Phosphatase 65, Total Protein 6.5, Albumin 3.9, Globulin 2.7 D/C Instructions DC O2, CPAP, BIPAP Needs Home O2 Discharge instructions: No Meaningful Use Info Meaningful Use Meaningful Use Diagnoses (Choose all that apply): None applicable Discharge Plan Admission Admit Date/Time: 03/16/25 12:53 Primary Reason for Your Visit: Acute on chronic GB colic with cholelithiasis andcholedocholithiasis Attending Provider: Jose Guadalupe Puckett Primary Care Provider: Care Physician,No Primary Consulting Providers: Jose Guadalupe Puckett; Yevgeniy Sarah; Karlee Green; Apolonia Pavon; Shira Alex Instructions Additional Instructions / Restrictions: Advised [id number] Tylenol 500 mg to 1000 mg Q6 hourly as needed for fevermore than 102 Fahrenheit and moderate to severe pain respectively. Jonz-qhc-yebfqnc, probiotic, lactobacillus/acidophilus 1 tablet twice daily for 7 days. Discharge Orders/Prescriptions Prescriptions: New sennosides-docusate sodium [Stimulant Laxative Plus] 8.6-50 mg Tablet 2 tab PO BID PRN PRN (Reason: Constipation) Qty: 0 0RF amoxicillin-pot clavulanate 875-125 mg tablet 1 tab PO BID Qty: 10 0RF Referrals / Follow Up: Yevgeniy Sarah DO [Med Staff - Active Staff, Gastroenterology] - Within 1 Month Abbie Philip MD [Med Staff - Active Staff, General Surgery] - Within 1 Week Care Physician,No Primary [Primary Care Provider, Medical] Disposition Disposition (needs filled in before D/C Order can be placed): Home, Self Care Charges/Coding Visit Charges Inpatient E&M: 08778 Disch Hosp >30min 03/18/25 0946 <Electronically signed by Jose Guadalupe Puckett MD> Cosigner Signature (if applicable): CC: Dr. Jose Guadalupe Puckett MD; Dr. Abbie Philip MD; No Primary Care Physician;Yevgeniy Sarah DO~ Signed [facility] Work Phone: [phone]) 132-589709-28-2025 Discharge summary Author Jose Guadalupe Puckett [facility] Note Date/Time March 18, 2025 9:40am [facility] Medical Records Department [address] [place] [address] Instructions for Home/Discharge Instructions 03/18/25934 MR#: [id number] Acct: [id number] Name: ALONDRA ARITA Rep #:[id number] : 1975 49 From: Jose Guadalupe White PCP: Care Physician,No Primary Status :ADM IN Discharge Instructions DC O2, CPAP, BIPAP needs Home O2 Discharge instructions: No Follow Up Care Test Results: Test results from this visit will be discussed in further detail at your follow- up appointment, if applicable. Discharge Plan Admission Admit Date/Time: 03/16/25 12:53 Attending Provider: Jose Guadalupe Puckett Primary Care Provider: Roman Physician,No Primary Consulting Providers: Jose Guadalupe Puckett; Yevgeniy Sarah; Karlee Green; Apolonia Pavon; Shira Alex Instructions Additional Instructions / Restrictions: Advised [id number] Tylenol 500 mg to 1000 mg Q6 hourly as needed for fevermore than 102 Fahrenheit and moderate to severe pain respectively. Mplp-ywz-qcbjdcw, probiotic, lactobacillus/acidophilus 1 tablet twice daily for 7 days. Discharge Orders/Prescriptions Prescriptions: New sennosides-docusate sodium [Stimulant Laxative Plus] 8.6-50 mg Tablet 2 tab PO BID PRN PRN (Reason: Constipation) Qty: 0 0RF amoxicillin-pot clavulanate 875-125 mg tablet 1 tab PO BID Qty: 10 0RF Referrals / Follow Up: Yevgeniy Sarah DO [Med Staff - Active Staff, Gastroenterology] - Within 1 Month Abbie Philip MD [Med Staff - Active Staff, General Surgery] - Within 1 Week Care Physician,No Primary [Primary Care Provider, Medical] Disposition Disposition (needs filled in before D/C Order can be placed): Home, Self Care 03/18/25 0940<Electronically signed by Jose Guadalupe Puckett MD>Jose Guadalupe Puckett MD CC: TEASELERMaliha Green; JACOBO-C Apolonia Pavon; Dr. Jose Guadalupe Puckett MD; MERE Mcpherson; No Primary Care Physician; Yevgeniy Sarah, DO ~ Signed [facility] Work Phone: [phone]) 294-562209-28-2025 Discharge summary [facility] Medical Records Department [address] [place] [address] Discharge Summary 03/18/25 0940 MR#: [id number] Acct: [id number] Name: ALONDRA ARITA Rep #:[id number] : 1975 49 From: Jose Guadalupe Whiet PCP: Care Physician,No Primary Status :ADM IN Location: [place] [address] Providers Date of Admission: 03/16/25 Date of Discharge: 03/18/25 Primary Care Physician: No Primary Care Phys Consultations 03/16/25 13:32 Consult: Gastroenterology Routine Consulting Provider: Saad Gastroenterology Reason for Consult: choledocholithiasis EMERGENT Consult: No MD Notified: Yes Date Notified: 03/16/25 Time Notified: 13:14 Method of Notification: ED Physician Initiated Reason For Visit: GB COLIC PAIN Diagnosis Discharge Diagnosis (1) Cholelithiasis with acute on chronic cholecystitis: Status: Acute Code(s): K80.12 - Calculus of gallbladder with acute and chronic cholecystitis without obstruction Plan 49-year-old gentleman came to ED with right upper and epigastric abdominal pain since 1:30 AM todaywith nausea. 1. Acute on chronic GB colic with cholelithiasis with suspicion of choledocholithiasis: Patient is being admitted to MedSurg floor. RUQ sonogram shows cholelithiasis without signs of acute cholecystitis. 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 GB reported normal in size with multiple stones, wall thickness 1.6 cm with echogenic intraluminal foci present, comet artifact suggesting of GB adenomyomatosis. No pericholecystic fluid. Clinically patientdoes not have fever, leukocytosis therefore suspicion of acute cholecystitis less likely. Dr. Sarah consulted for ERCP. I discussed with melinda Philip and she states she will follow peripherally but will need follow-up in surgery office for interval cholecystectomy as there is a big stone with possible central trapped air as seen on CT scan. 03/17: Discussed with the surgeon. Plan for office follow-up in 2 weeks after discharge. As transaminases are elevated but total bilirubin same probably mildirritation due to ERCP therefore we will keep the patient today. Continue IV antibiotic. Clear liquid, advance as per tolerated to full and soft diet. The patient does not seem to have cholecystitis features either clinically or radiologically. Mild increase in WBC count probably after reactive ERCP. ERCP on 03/16 Impression: - The entire main bile duct was moderately dilated, with a stone causing an obstruction. - Choledocholithiasis was found. Partial removal was accomplished with biliary sphincterotomy; a stent was inserted. - A biliary sphincterotomy was performed. - The biliary tree was swept. - One temporary stent was placed into the common bile duct. 03/18: Abdominal pain/discomfort minimal with some sore throat from ERCP. Able to tolerate full liquid diet advance to soft diet. Follow-up with Dr. Philip in 1 week. Follow-up in GI office/Dr. Leiva in 1 month. Liver chemistry shows improvement in AST and ALT. Total bilirubin 0.85, direct 0.41 normal range ALP 65 normal. Empirically patient discharged on 5 more days of Augmentin to complete a 1week of antibiotic. Advised OTC Tylenol and probiotic admission discharge instructions. 2. Suspected Acute liver injury from cholelithiasis/and suspected choledocholithiasis: No previous lab to compare. Total bili 1.6, TB 0.73 AST 525, ALT 370, ALP normal. Lipase 50. 03/18: Liver chemistry including TB shows improvement 3. Liver lesion suspected benign lesion focal nodular hyperplasia and diffuse hepatic steatosis/MASLD/MASH: Ultrasound shows hypoechoic lesion in the right liver for which CT triple phase was done. It shows focal lesion right lobe of liver which enhance on the arterial image with partially fills ondelayed images. There is central area with diminished enhancement. Lesion had similar enhancement to remainder of the liver on delayed images. It favors more focal nodular hyperplasia. Liver ultrasound shows enlarged hyperechoic liver suggestive of hepatic steatosis 03/17: Focal nodular hyperplasia explained to the patient and his . Benign developmental malformation liver lesion. 03/18 follow-up in GI office after month. 4. Unknown past medical history but patient denies hypertension or diabetes mellitus. He does not have PCP. Never smoker. Does not drink alcohol. No substance use. 03/17: Explained to the patient advised that he needs to establish PCP. 5. DVT prophylaxis, moderate risk on Lovenox 40 mg subcu daily Living will/advanced directive/end of life care: Patient does not have living will or advanced directive. After discussion of benefits/risks procedures involved with full code, DNR CC arrest and DNR CC, the patient opted for full code. Patient does want artificial life support including intubation, tube feed, ventilator and/chest compression, central venous catheter, vasopressor and DC shock if needed Total time spent in [id number] encounter in discussion of advanced directive 17 minutes. Discharge medication reconciliation done. Discharge follow-up instructions completed. Discharge process discussed with the patient and all questions wereanswered to patient's satisfaction. Follow with PCP in 1 to 2 weeks Total time spent, exact 35 minutes on discharge meds reconciliation, examination, coordination of care with nurses and ancillary staff, review of imaging and blood test and discussion with the patient on follow-up instructions. Laboratory Results 03/16/25 09:54: WBC 9.0, RBC 5.93, Hgb 17.0 H, Hct 48.0, MCV 80.9, MCH 28.7, MCHC 35.4, RDW Std Deviation 37.0, RDW Coeff of Ghulam 12.7, Plt Count 237, MPV 10.6, Immature Gran % (Auto) 0.400, Neut % (Auto) 75.9 H, Lymph % (Auto) 17.5 L,Stanly % (Auto) 4.8, Eos % (Auto) 1.0, Baso % (Auto) 0.4, Absolute Neuts (auto) 6.8, Absolute Lymphs (auto) 1.58, Nucleated RBC % 0, PT 13.3, INR 1.0, Sodium 138, Potassium 4.2, Chloride 104, Carbon Dioxide 20.3 L, Anion Gap 14, BUN 13, Creatinine 1.02, Estim Creat Clear Calc 102.77, Est GFR (MDRD) Non-Af 90, BUN/Creatinine Ratio 13.1, Glucose 118 H, Calcium 10.4, Total Bilirubin 1.60 H, Direct Bilirubin 0.73 H, AST 525 H, ALT 370 H, Alkaline Phosphatase 64, Total Protein 7.5, Albumin 4.7, Globulin 2.9, Albumin/Globulin Ratio 1.6, Lipase 50 03/16/25 10:37: Urine Color Yellow, Urine Clarity Sl. Cloudy, Urine pH 6.0, Ur Specific [place] 1.010, Urine Protein Negative, Urine Glucose (UA) Normal, UrineKetones Negative, Urine Occult Blood 10 H, Urine Nitrite Negative, Urine Bilirubin Negative, Urine Urobilinogen Normal, Ur Leukocyte Esterase Negative, Urine RBC 0 SEEN, Urine WBC 0 SEEN, Ur Squamous Epith Cells 0 SEEN, Urine Bacteria 0 SEEN, Urine Mucus 0 SEEN Laboratory Results 03/16/25 09:54: PT 13.3, INR 1.0, Direct Bilirubin 0.73 H 03/17/25 05:47: WBC 11.5 H, RBC 5.40, Hgb 15.2, Hct 43.5, MCV 80.6, MCH 28.1, MCHC 34.9, RDW Std Deviation 38.0, RDW Coeff of Ghulam 13.2, Plt Count 242, MPV 10.7, Immature Gran % (Auto) 0.400, Neut % (Auto) 83.5 H, Lymph % (Auto) 12.9 L,Stanly % (Auto) 3.1, Eos % (Auto) 0.0, Baso % (Auto) 0.1, AbsoluteNeuts (auto) 9.6 H, Absolute Lymphs (auto) 1.48, Nucleated RBC % 0, Sodium 138, Potassium 4.0, Chloride 105, Carbon Dioxide 19.5 L, Anion Gap 13, BUN 9, Creatinine 0.92, Estim Creat Clear Calc 130.43, Est GFR (MDRD) Non-Af 101, BUN/Creatinine Ratio 9.9 L, Glucose 125 H, Calcium 9.0, Total Bilirubin1.56 H, Direct Bilirubin 0.91H, AST 618 H, ALT 865 H, Alkaline Phosphatase 72, Total Protein 6.8, Albumin 4.2, Globulin 2.6 Clinical Impression(s) from Imaging Studies Gallbladder Ultrasound 03/16/25 10:30 IMPRESSION: 1. Enlarged hyperechoic liver, suggesting hepatic steatosis, although other diffuse liver diseases can have this appearance. 2. Hypoechoic lesion in the right liver. A follow-up liver protocol CT or MRI is recommended to further evaluate. 3. Cholelithiasis without signs of acute cholecystitis. 4. Findings suggesting gallbladder adenomyomatosis. 5. Distended common bile duct, without an obstructing lesion seen. Abdomen/Pelvis CT 03/16/25 12:05 IMPRESSION: Fatty liver. Well-defined lesion right lobe of liver favor focal nodular hyperplasia. Follow-up MR of the abdomen with Eovist in 4-6 months to confirm stability possibly helpful. Reading Location: [facility] Medications at Discharge Home Medications amoxicillin 875 mg-potassium clavulanate 125 mg tablet 1 tab PO BID #10 tabs 03/18/25 sennosides 8.6 mg-docusate sodium 50 mg tablet (Stimulant Laxative Plus) 2 tab PO BID PRN PRN Constipation #0 tabs 03/18/25 Hospital Course Summary of Care Provided Hospital Course: Laboratory Results 03/18/25 03:29: Total Bilirubin 0.85, Direct Bilirubin 0.40 H, AST 222 H, ALT 573 H, Alkaline Phosphatase 65, Total Protein 6.5, Albumin 3.9, Globulin 2.7 Clinical Impression(s) from Imaging Studies Gallbladder Ultrasound 03/16/25 10:30 IMPRESSION: 1. Enlarged hyperechoic liver, suggesting hepatic steatosis, although other diffuse liver diseases can have this appearance. 2. Hypoechoic lesion in the right liver. A follow-up liver protocol CT or MRI is recommended to further evaluate. 3. Cholelithiasis without signs of acute cholecystitis. 4. Findings suggesting gallbladder adenomyomatosis. 5. Distended common bile duct, without an obstructing lesion seen. Reading Location: [facility] Abdomen/Pelvis CT 03/16/25 12:05 IMPRESSION: Fatty liver. Well-defined lesion right lobe of liver favor focal nodular hyperplasia. Follow-up MR of the abdomen with Eovist in 4-6 months to confirm stability possibly helpful. Reading Location: [facility] C-Arm Fluoroscopy 03/16/25 15:55 IMPRESSION: Intraoperative fluoroscopy status post ERCP, as above. Reading Location: [id number] ERCP X-Ray 03/16/25 15:55 IMPRESSION: Intraoperative fluoroscopy status post ERCP, as above. Reading Location: [facility] Physical Exam Narrative Seen and examined. Abdominal pain has improved but is still mild epigastric/RUQ discomfort and withmild sore throat from ERCP. Liver chemistry shows improvement in transaminases. T. bili and ALP normal. No fever. Tolerated soft liquid Physical exam: General: Alert, Oriented x3, Cooperative. BMI 25.7 kg/m? HEENT: Atraumatic, PERRLA, EOMI, Normocephalic. Oral: Oral mucosa dry. No Gingival or Mucosal Lesions/ Ulcerations Neck: Supple, No JVD, Negative Carotid Bruits Chest wall/Lungs: Air entry equal in bilateral lung bases. No crepitation/rhonchi Cardiovascular: Regular rate and rhythm, Normal S1,S2, No M/G/R Abdomen: Bowel Sounds sluggish, Soft, mild discomfort over right upper quadrant and epigastric region. No distention : No dysuria. No renal angle tenderness. No suprapubic tenderness. Extremities: No edema, Capillary Refill Less than 3 Seconds Skin: No rashes, No breakdown Musculoskeletal: No Tenderness to Palpation of Joints or Extremities Neurological: Cranial nerves II-XII grossly intact, DTR 2+/4. No acute focal neurological deficit. Psych/Mental Status: Normal Affect, Appropriate. Weight / BMI Weight Weight: 236 lb 5.369 oz Body Mass Index (BMI) 26.0 ABG / Lab / Microbiology Data 03/17/25 05:47 03/17/25 05:47 Laboratory: Laboratory Results - last 24 hr 03/18/25 03:29: Total Bilirubin 0.85, Direct Bilirubin 0.40 H, AST 222 H, ALT 573 H, Alkaline Phosphatase 65, Total Protein 6.5, Albumin 3.9, Globulin 2.7 D/C Instructions DC O2, CPAP, BIPAP Needs Home O2 Discharge instructions: No Meaningful Use Info Meaningful Use Meaningful Use Diagnoses (Choose all that apply): None applicable Discharge Plan Admission Admit Date/Time: 03/16/25 12:53 Primary Reason for Your Visit: Acute on chronic GB colic with cholelithiasis andcholedocholithiasis Attending Provider: Jose Guadalupe Puckett Primary Care Provider: Care Physician,No Primary Consulting Providers: Jose Guadalupe Puckett; Yevgeniy Sarah; Kralee Green; Apolonia Pavon; Shira Alex Instructions Additional Instructions / Restrictions: Advised ddyw-huz-frfdvin Tylenol 500 mg to 1000 mg Q6 hourly as needed for fevermore than 102 Fahrenheit and moderate to severe pain respectively. Okhx-vfb-sbyxmpy, probiotic, lactobacillus/acidophilus 1 tablet twice daily for 7 days. Discharge Orders/Prescriptions Prescriptions: New sennosides-docusate sodium [Stimulant Laxative Plus] 8.6-50 mg Tablet 2 tab PO BID PRN PRN (Reason: Constipation) Qty: 0 0RF amoxicillin-pot clavulanate 875-125 mg tablet 1 tab PO BID Qty: 10 0RF Referrals / Follow Up: Yevgeniy Sarah DO [Med Staff - Active Staff, Gastroenterology] - Within 1 Month Abbie Philip MD [Med Staff - Active Staff, General Surgery] - Within 1 Week Care Physician,No Primary [Primary Care Provider, Medical] Disposition Disposition (needs filled in before D/C Order can be placed): Home, Self Care Charges/Coding Visit Charges Inpatient E&M: 01484 Disch Hosp >30min 03/18/25 0946 Cosigner Signature (if applicable): CC: Dr. Jose Guadalupe Puckett MD; Dr. Abbie Philip MD; No Primary Care Physician;Yevgeniy Sarah DO~ Signed [facility]09-28-2025 Discharge summary [facility] Medical Records Department [address] [place] [address] Instructions for Home/Discharge Instructions 03/18/25 0935 MR#: [id number] Acct: [id number] Name: ALONDRA ARITA Rep #:[id number] : 1975 49 From: Jose Guadalupe White PCP: Care Physician,No Primary Status :ADM IN Discharge Instructions DC O2, CPAP, BIPAP needs Home O2 Discharge instructions: No Follow Up Care Test Results: Test results from this visit will be discussed in further detail at your follow- up appointment, if applicable. Discharge Plan Admission Admit Date/Time: 03/16/25 12:53 Attending Provider: Jose Guadalupe Puckett Primary Care Provider: Roman Physician,No Primary Consulting Providers: Jose Guadalupe Puckett; Yevgeniy Sarah; Karlee Green; Apolonia Pavon; Shira Alex Instructions Additional Instructions / Restrictions: Advised ktky-xkr-tiothps Tylenol 500 mg to 1000 mg Q6 hourly as needed for fevermore than 102 Fahrenheit and moderate to severe pain respectively. Nowu-zrh-wkdiinz, probiotic, lactobacillus/acidophilus 1 tablet twice daily for 7 days. Discharge Orders/Prescriptions Prescriptions: New sennosides-docusate sodium [Stimulant Laxative Plus] 8.6-50 mg Tablet 2 tab PO BID PRN PRN (Reason: Constipation) Qty: 0 0RF amoxicillin-pot clavulanate 875-125 mg tablet 1 tab PO BID Qty: 10 0RF Referrals / Follow Up: Yevgeniy Sarah DO [Med Staff - Active Staff, Gastroenterology] - Within 1 Month Abbie Philip MD [Med Staff - Active Staff, General Surgery] - Within 1 Week Care Physician,No Primary [Primary Care Provider, Medical] Disposition Disposition (needs filled in before D/C Order can be placed): Home, Self Care 03/18/25 09Jose Guadalupe Puckett MD CC: TEASELERMaliha Green; TEASELERMaliha Pavon; Dr. Jose Guadalupe Puckett MD; MERE Mcpherson; No Primary Care Physician; Yevgeniy Sarah DO ~ Signed [facility]09-28-2025 [facility] Medical Records Department [address] [place] [address] Discharge Summary 03/18/25939 MR#: [id number] Acct: [id number] Name: ALONDRA ARITA Rep #: [id number] : 1975 49 From: Jose Guadalupe Puckett MD PCP: Care Physician,No Primary Status:ADM IN [id number] Date of Admission: 03/16/25 Date of Discharge: 03/18/25 Primary Care Physician: No Primary Care Phys Consultations 03/16/25 13:32 Consult: Gastroenterology Routine Consulting Provider: Saad Gastroenterology Reason for Consult: choledocholithiasis EMERGENT Consult: Judy BROOKS Notified: Yes Date Notified: 03/16/25 Time Notified: 13:14 Method of Notification: ED Physician Initiated Reason For Visit: GB COLIC PAIN Diagnosis Discharge Diagnosis (1) Cholelithiasis with acute on chronic cholecystitis: Status: Acute Code(s): K80.12 - Calculus of gallbladder with acute and chronic cholecystitis without obstruction Plan 49-year-old gentleman came to ED with right upper and epigastric abdominal pain since 1:30 AM today with nausea. 1. Acute on chronic GB colic with cholelithiasis with suspicion of choledocholithiasis: Patient is being admitted to [facility] floor. RUQ sonogram shows cholelithiasis without signs of acute cholecystitis. 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 GB reported normal in size with multiple stones, wall thickness 1.6 cm with echogenic intraluminal foci present, comet artifact suggesting of GB adenomyomatosis. No pericholecystic fluid. Clinically patient does not have fever, leukocytosis therefore suspicion of acute cholecystitis less likely. Dr. Sarah consulted for ERCP. I discussed with surgeon Dr. Philip and she states she will follow peripherally but will need follow-up in surgery office for interval cholecystectomy as there is a big stone with possible central trapped air as seen on CT scan. 03/17: Discussed with the surgeon. Plan for office follow-up in 2 weeks after discharge. As transaminases are elevated but total bilirubin same probably mild irritation due to ERCP therefore we will keep the patient today. Continue IV antibiotic. Clear liquid, advance as per tolerated to full and soft diet. The patient does not seem to have cholecystitis features either clinically or radiologically. Mild increase in WBC count probably after reactive ERCP. ERCP on 03/16 Impression: - The entire main bile duct was moderately dilated, with a stone causing an obstruction. - Choledocholithiasis was found. Partial removal was accomplished with biliary sphincterotomy; a stent was inserted. - A biliary sphincterotomy was performed. - The biliary tree was swept. - One temporary stent was placed into the common bile duct. 03/18: Abdominal pain/discomfort minimal with some sore throat from ERCP. Able to tolerate full liquid diet advance to soft diet. Follow-up with Dr. Philip in 1 week. Follow- up in GI office/Dr. Leiva in 1 month. Liver chemistry shows improvement in AST and ALT. Total bilirubin 0.85, direct 0.41 normal range ALP 65 normal. Empirically patient discharged on 5 more days of Augmentin to complete a 1 week of antibiotic. Advised OTC Tylenol and probiotic admission discharge instructions. 2. Suspected Acute liver injury from cholelithiasis/and suspected choledocholithiasis: No previous lab to compare. Total bili 1.6, TB 0.73 AST 525, ALT 370, ALP normal. Lipase 50. 03/18: Liver chemistry including TB shows improvement 3. Liver lesion suspected benign lesion focal nodular hyperplasia and diffuse hepatic steatosis/MASLD/MASH: Ultrasound shows hypoechoic lesion in the right liver for which CT triple phase was done. It shows focal lesion right lobe of liver which enhance on the arterial image with partially fills on delayed images. There is central area with diminished enhancement. Lesion had similar enhancement to remainder of the liver on delayed images. It favors more focal nodular hyperplasia. Liver ultrasound shows enlarged hyperechoic liver suggestive of hepatic steatosis 03/17: Focal nodular hyperplasia explained to the patient and his . Benign developmental malformation liver lesion. 03/18 follow-up in GI office after month. 4. Unknown past medical history but patient denies hypertension or diabetes mellitus. He does not have PCP. Never smoker. Does not drink alcohol. No substance use. 03/17: Explained to the patient advised that he needs to establish PCP. 5. DVT prophylaxis, moderate risk on Lovenox 40 mg subcu daily Living will/advanced directive/end of life care: Patient does not have living will or advanced directive. After discussion of benefits/risks procedures involved with full code, DNR CC arrest and DNR CC, the patient opted for full code. Patient does want artificial life support including intubation, tube feed, ventilator and/chest co (more content not included)...[facility]09-27-2025 Discharge summary Author Lucretia Bear [facility] Note Date/Time March 17, 2025 3:21pm [facility] Medical Records Department [address] [place] [address] Emergency Department Summary 03/16/25 MR#: [id number] Acct: [id number] Name: ALONDRA ARITA Rep #:[id number] : 1975 49 From: Lucretia Albert PCP: Care Physician,No Primary Status :ADM IN [place] [facility] [id number] HPI HPI - GI History of Present Illness Chief Complaint: Abd Pain Informant: patient Narrative Narrative: Patient is a 49-year-old male with no significant past medical history presenting with worsening upper abdominal pain. States has been having issues with epigastric/right upper quadrant abdominal pain for some time and self diagnosed himself with gallstone/gallbladder problems. States most recently hadepisode about 2 weeks ago where he had relatively severe pain in her right upperquadrant after eating a particularly fatty meal that lasted for about 3 hours. States since then he has been watching his diet. Last night he had [employer] (aburrito and chalupa) around 6 PM and then around 10 PM had a cold cut sandwich and glass of iced tea. States that around 1:30 AM he started to have pain in his upper abdomen area that is more in the middle but goes across his whole upper abdomen. Denies any radiation to his back or chest. Has associated nausea. States the pain is not as sharp as has been before but is more dull in nature. Took 2 Tums around 6 AM with no significant relief. States he has not had anything to eat or drink today. Notes the pain is better if he hunches overand worse if he sits up straight. Notes he has been taking antacids more frequently lately. Denies any black or blood in his stool. Nuys any change in his bowel movements. Denies a history of any abdominal surgeries. Thinks when he is a teenager he maybe had some gastritis but does not recall the details. Does not have any known history of stomach ulcers. No fevers or chills reported. No other complaints or concerns at this time [facility] Medical History GERD (gastroesophageal reflux disease) Medical History no medical history Allergy/AdvReac Type Severity Reaction Status Date / Time No Known Allergies Allergy Verified 03/16/25 13:09 Social History Smoking Status: Never smoker ROS ROS ED Constitutional Constitutional ED: Denies chills or fever(s) Respiratory/Chest Respiratory/Chest: Denies cough Gastrointestinal Gastrointestinal: Reports abdominal pain and nausea; Denies constipation, diarrhea, melena or vomiting Genitourinary Genitourinary ED: Denies dysuria or hematuria Musculoskeletal Musculoskeletal: Denies arthralgias, back pain or myalgias Integumentary Denies rash Neurologic Neurologic: Denies weakness EXAM Physical Exam Const Vital Signs: 03/16/25 09:32 03/16/25 11:32 03/16/25 12:30 Temperature 97.2 F L 98.7 F Temperature Source Temporal Pulse Rate 100 75 68 Respiratory Rate 14 18 18 Blood Pressure 153/88 H 113/73 121/78 H Blood Pressure Mean 109 86 92 Pulse Ox 99 97 98 Oxygen Delivery Method Room Air Room Air Positive well nourished and well developed General Appearance ED: well developed; Negative for pallor HEENT normocephalic and atraumatic Eyes General Eye ED: Negative for pale conjunctiva or scleral icterus Neck supple and no JVD Resp normal respiratory effort and clear to auscultation bilaterally Cardio regular rate, regular rhythm and no murmurs GI non-distended GI Narrative: Mild epigastric abdominal tenderness, not highly reproduced on exam. Points to his right upper quadrant really as the area of his pain usually. Negative Flores sign. Inspection: Negative for abdominal distention Auscultation: normoactive bowel sounds Palpation: soft Back/Spine no CVA tenderness Extremity full ROM Neuro moves all extremities Sensorium / Orientation: alert Psych mental status grossly normal Skin no wounds General Skin Exam: Negative for jaundice or pallor MDM MDM MDM Narrative Medical decision making narrative: Patient evaluated for upper abdominal pain. Ports that history intermittent episodes of pain concerning for possible biliary colic. Differential also includes choledocholithiasis, acute cholecystitis, pancreatitis as well as gastritis/peptic ulcer disease. Patient's physical exam is relatively benign with a negative Flores sign. CBC coags normal. CMP does show an elevation of his total bilirubin as well as elevation of AST and ALT concerning for possible obstructive process. Direct bilirubin is added which is elevated. Lipase is normal. Urinalysis and is largely normal with negative bilirubin. Right upper quadrant ultrasound does not shows acute cholecystitis but does showsome abnormalities of the liver as well as cholelithiasis and a dilation of the common bile duct. Concern for possible choledocholithiasis. Case is discussed with Dr. Sarah whoagrees that patient benefit from ERCP. Patient will be admitted for this. Is kept NPO. Patient is given Protonix, IV fluids in the emergency room. Does notrequire pain medication in the ER as he states his pain is pretty mild at this time. Case is discussed with hospitalist for admission, Dr. Puckett. Lab Data Attestation: I reviewed the patient's lab results. Labs: Laboratory Results - last 24 hr 03/16/25 03/16/25 09:54 10:37 WBC 9.0 RBC 5.93 Hgb 17.0 H Hct 48.0 MCV 80.9 MCH 28.7 MCHC 35.4 RDW Std Deviation 37.0 RDW Coeff of Ghulam 12.7 Plt Count 237 MPV 10.6 Immature Gran % (Auto) 0.400 Neut % (Auto) 75.9 H Lymph % (Auto) 17.5 L Stanly % (Auto) 4.8 Eos % (Auto) 1.0 Baso % (Auto) 0.4 Absolute Neuts (auto) 6.8 Absolute Lymphs (auto) 1.58 Nucleated RBC % 0 PT 13.3 INR 1.0 Sodium 138 Potassium 4.2 Chloride 104 Carbon Dioxide 20.3 L Anion Gap 14 BUN 13 Creatinine 1.02 Estim Creat Clear Calc 102.77 Est GFR (MDRD) Non-Af 90 BUN/Creatinine Ratio 13.1 Glucose 118 H Calcium 10.4 Total Bilirubin 1.60 H Direct Bilirubin 0.73 H AST 525 H ALT 370 H Alkaline Phosphatase 64 Total Protein 7.5 Albumin 4.7 Globulin 2.9 Albumin/Globulin Ratio 1.6 Lipase 50 Urine Color Yellow Urine Clarity Sl. Cloudy Urine pH 6.0 Ur Specific [place] 1.010 Urine Protein Negative Urine Glucose (UA) Normal Urine Ketones Negative Urine Occult Blood 10 H Urine Nitrite Negative Urine Bilirubin Negative Urine Urobilinogen Normal Ur Leukocyte Esterase Negative Urine RBC 0 SEEN Urine WBC 0 SEEN Ur Squamous Epith Cells 0 SEEN Urine Bacteria 0 SEEN Urine Mucus 0 SEEN Radiography Diagnostic Testing: Clinical Impression(s) from Imaging Studies Gallbladder Ultrasound 03/16/25 10:30 IMPRESSION: 1. Enlarged hyperechoic liver, suggesting hepatic steatosis, although other diffuse liver diseases can have this appearance. 2. Hypoechoic lesion in the right liver. A follow-up liver protocol CT or MRI is recommended to further evaluate. 3. Cholelithiasis without signs of acute cholecystitis. 4. Findings suggesting gallbladder adenomyomatosis. 5. Distended common bile duct, without an obstructing lesion seen. Reading Location: [facility] Abdomen/Pelvis CT 03/16/25 12:05 IMPRESSION: Fatty liver. Well-defined lesion right lobe of liver favor focal nodular hyperplasia. Follow-up MR of the abdomen with [facility] in 4-6 months to confirm stability possibly helpful. Reading Location: [facility] Rhythm Strip Rhythm Strip: Sinus Rhythm Rate: 76 Ectopy: None EKG Initial EKG: Attestation: I personally reviewed and interpreted this EKG as follows: Interpretation: Sinus Rhythm Comments: Normal sinus rhythm rate of 76 bpm with sinus arrhythmia Normal axis Normal intervals Normal ST segments Management Discussion w/another healthcare provider: Hospitalist and Synthetic Department Supervisor Discharge Plan Dx/Rx/DC Orders Clinical Impression: Cholelithiasis with acute on chronic cholecystitis Disposition Disposition: Acute Care Hospital [facility] Discharge Date/Time: 03/16/25 12:44 What to do if you have Problems For any increased pain, shortness of breath, bleeding, nausea or vomiting, chestpain, or any unexpected problems, contact your Primary Care Provider. Call [facility] ([phone]) or report to the closest Emergency Room. Call 911 if necessary. 03/17/25 1521 <Electronically signed by Lucretia Bear DO> Cosigner Signature (if applicable): CC: No Primary Care Physician ~ Signed [facility] Work Phone: [phone] Discharge summary [facility] Medical Records Department [address] [place] [address] Emergency Department Summary 03/16/25 MR#: [id number] Acct: [id number] Name: ALONDRA ARITA Rep #:[id number] : 1975 49 From: Lucretia Albert PCP: Care Physician,No Primary Status :ADM IN [place] [facility] [id number] HPI HPI - GI History of Present Illness Chief Complaint: Abd Pain Informant: patient Narrative Narrative: Patient is a 49-year-old male with no significant past medical history presenting with worsening upper abdominal pain. has been having issues with epigastric/right upper quadrant abdominal pain for some time and self diagnosed himself with gallstone/gallbladder problems. most recently hadepisode about 2 weeks ago where he had relatively severe pain in her right upperquadrant after eating a particularly fatty meal that lasted for about 3 hours. States since then he has been watching his diet. Last night he had [employer] (aburrito and chalupa) around 6 PM and then around 10 PM hada cold cut sandwich and glass of iced tea. States that around 1:30 AM he started to have pain in his upper abdomen area that is more in the middle but goes across his whole upper abdomen. Denies any radiation to his back or chest. Has associated nausea. States the pain is not as sharp as has been before but is more dull in nature. Took 2 Tums around 6 AM with no significant relief. States he has not had anything to eat or drink today. Notes the pain is better if he hunches overand worse if he sits up straight. Notes he has been taking antacids more frequently lately. Denies any black or bloodin his stool. Nuys any change in his bowel movements. Denies a history of any abdominal surgeries. Thinks when he is a teenager he maybe had some gastritis but does not recall the details. Does not have any known history of stomach ulcers. No fevers or chills reported. No other complaints or concerns at this time [facility] Medical History GERD (gastroesophageal reflux disease) Medical History no medical history Allergy/AdvReac Type Severity Reaction Status Date / Time No Known Allergies Allergy Verified 03/16/25 13:09 Social History Smoking Status: Never smoker ROS ROS ED Constitutional Constitutional ED: Denies chills or fever(s) Respiratory/Chest Respiratory/Chest: Denies cough Gastrointestinal Gastrointestinal: Reports abdominal pain and nausea; Denies constipation, diarrhea, melena or vomiting Genitourinary Genitourinary ED: Denies dysuria or hematuria Musculoskeletal Musculoskeletal: Denies arthralgias, back pain or myalgias Integumentary Denies rash Neurologic Neurologic: Denies weakness EXAM Physical Exam Const Vital Signs: 03/16/25 09:32 03/16/25 11:32 03/16/25 12:30 Temperature 97.2 F L 98.7 F Temperature Source Temporal Pulse Rate 100 75 68 Respiratory Rate 14 18 18 Blood Pressure 153/88 H 113/73 121/78 H Blood Pressure Mean 109 86 92 Pulse Ox 99 97 98 Oxygen Delivery Method Room Air Room Air Positive well nourished and well developed General Appearance ED: well developed; Negative for pallor HEENT normocephalic and atraumatic Eyes General Eye ED: Negative for pale conjunctiva or scleral icterus Neck supple and no JVD Resp normal respiratory effort and clear to auscultation bilaterally Cardio regular rate, regular rhythm and no murmurs GI non-distended GI Narrative: Mild epigastric abdominal tenderness, not highly reproduced on exam. Points to his right upper quadrant really as the area of his pain usually. Negative Flores sign. Inspection: Negative for abdominal distention Auscultation: normoactive bowel sounds Palpation: soft Back/Spine no CVA tenderness Extremity full ROM Neuro moves all extremities Sensorium / Orientation: alert Psych mental status grossly normal Skin no wounds General Skin Exam: Negative for jaundice or pallor MDM MDM MDM Narrative Medical decision making narrative: Patient evaluated for upper abdominal pain. Ports that history intermittent episodes of pain concerning for possible biliary colic. Differential also includes choledocholithiasis, acute cholecystitis, pancreatitis as well as gastritis/peptic ulcer disease. Patient's physical exam is relatively benign with a negative Flores sign. CBC coags normal. CMP does show an elevation of his total bilirubin as well as elevation of AST andALT concerning for possible obstructive process. Direct bilirubin is added which is elevated. Lipase is normal. Urinalysis and is largely normal with negative bilirubin. Right upper quadrant ultrasound does not shows acute cholecystitis but does showsome abnormalities of the liver as well as cholelithiasis and a dilation of the common bile duct. Concern for possible choledocholithiasis. Case is discussed with Dr. Sarah whoagrees that patient benefit from ERCP. Patient will be admitted for this. Is kept NPO. Patient is given Protonix, IV fluids in the emergency room. Does notrequire pain medication in the ER as he states his pain is prettymild at this time. Case is discussed with hospitalist for admission, Dr. Puckett. Lab Data Attestation: I reviewed the patient's lab results. Labs: Laboratory Results - last 24 hr 03/16/25 03/16/25 09:54 10:37 WBC 9.0 RBC 5.93 Hgb 17.0 H Hct 48.0 MCV 80.9 MCH 28.7 MCHC 35.4 RDW Std Deviation 37.0 RDW Coeff of Ghulam 12.7 Plt Count 237 MPV 10.6 Immature Gran % (Auto) 0.400 Neut % (Auto) 75.9 H Lymph % (Auto) 17.5 L [place] % (Auto) 4.8 Eos % (Auto) 1.0 Baso % (Auto) 0.4 Absolute Neuts (auto) 6.8 Absolute Lymphs (auto) 1.58 Nucleated RBC % 0 PT 13.3 INR 1.0 Sodium 138 Potassium 4.2 Chloride 104 Carbon Dioxide 20.3 L Anion Gap 14 BUN 13 Creatinine 1.02 Estim Creat Clear Calc 102.77 Est GFR (MDRD) Non-Af 90 BUN/Creatinine Ratio 13.1 Glucose 118 H Calcium 10.4 Total Bilirubin 1.60 H Direct Bilirubin 0.73 H AST 525 H ALT 370 H Alkaline Phosphatase 64 Total Protein 7.5 Albumin 4.7 Globulin 2.9 Albumin/Globulin Ratio 1.6 Lipase 50 Urine Color Yellow Urine Clarity Sl. Cloudy Urine pH 6.0 Ur Specific [place] 1.010 Urine Protein Negative Urine Glucose (UA) Normal Urine Ketones Negative Urine Occult Blood 10 H Urine Nitrite Negative Urine Bilirubin Negative Urine Urobilinogen Normal Ur Leukocyte Esterase Negative Urine RBC 0 SEEN Urine WBC 0 SEEN Ur Squamous Epith Cells 0 SEEN Urine Bacteria 0 SEEN Urine Mucus 0 SEEN Radiography Diagnostic Testing: Clinical Impression(s) from Imaging Studies Gallbladder Ultrasound 03/16/25 10:30 IMPRESSION: 1. Enlarged hyperechoic liver, suggesting hepatic steatosis, although other diffuse liver diseases can have this appearance. 2. Hypoechoic lesion in the right liver. A follow-up liver protocol CT or MRI is recommended to further evaluate. 3. Cholelithiasis without signs of acute cholecystitis. 4. Findings suggesting gallbladder adenomyomatosis. 5. Distended common bile duct, without an obstructing lesion seen. Reading Location: [id number] Abdomen/Pelvis CT 03/16/25 12:05 IMPRESSION: Fatty liver. Well-defined lesion right lobe of liver favor focal nodular hyperplasia. Follow-up MR of the abdomen with Eovist in 4-6 months to confirm stability possibly helpful. Reading Location: [id number] Rhythm Strip Rhythm Strip: Sinus Rhythm Rate: 76 Ectopy: None EKG Initial EKG: Attestation: I personally reviewed and interpreted this EKG as follows: Interpretation: Sinus Rhythm Comments: Normal sinus rhythm rate of 76 bpm with sinus arrhythmia Normal axis Normal intervals Normal ST segments Management Discussion w/another healthcare provider: Hospitalist and Synthetic Department Supervisor Discharge Plan Dx/Rx/DC Orders Clinical Impression: Cholelithiasis with acute on chronic cholecystitis Disposition Disposition: Acute Care Hospital [facility] Discharge Date/Time: 03/16/25 12:44 What to do if you have Problems For any increased pain, shortness of breath, bleeding, nausea or vomiting, chestpain, or any unexpected problems, contact your Primary Care Provider. Call [facility] ([phone]) or report tothe closest Emergency Room. Call 911 if necessary. 03/17/25 1521 Cosigner Signature (if applicable): CC: No Primary Care Physician ~ Signed [facility]09-27-2025 Progress note Author Jose Guadalupe Puckett [facility] Note Date/Time March 17, 2025 1:02pm [facility] Medical Records Department [address] [place] [address] Progress Note - Hospitalist 03/17/25 0754 MR#: [id number] Acct: [id number] Name: ALONDRA ARITA Rep #:[id number] : 1975 49 From: Jose Guadalupe White PCP: Care Physician,No Primary Status :ADM IN Location: [place] [address] Reason for Visit Chief Complaint: Right upper quadrant abdominal pain started at 1:30 AM today. No relief Objective Data Objective Data Vital Signs: Vital Signs Temp Pulse Resp BP Pulse Ox O2 Del Method 97.8 F 71 15 107/63 95 Room Air 03/17/25 05:35 03/17/25 05:35 03/17/25 05:35 03/17/25 05:35 03/17/25 05:35 03/17/25 05:35 Oxygen Delivery Method Room Air Weight: 232 lb 9.403 oz Body Mass Index (BMI) 25.6 Intake & Output: Intake and Output for Last 24 Hours 03/15/25 03/16/25 03/17/25 23:59 23:59 23:59 Intake Total 1250 / 1250 1050 / 1050 Balance 1250 / 1250 1050 / 1050 Lab / Micro Data 03/17/25 05:47 03/17/25 05:47 Labs: Laboratory Results - last 24 hr 03/16/25 09:54: WBC 9.0, RBC 5.93, Hgb 17.0 H, Hct 48.0, MCV 80.9, MCH 28.7, MCHC 35.4, RDW Std Deviation 37.0, RDW Coeff of Ghulam 12.7, Plt Count 237, MPV 10.6, Immature Gran % (Auto) 0.400, Neut % (Auto) 75.9 H, Lymph % (Auto) 17.5 L,Stanly % (Auto) 4.8, Eos % (Auto) 1.0, Baso % (Auto) 0.4, Absolute Neuts (auto) 6.8, Absolute Lymphs (auto) 1.58, Nucleated RBC % 0, PT 13.3, INR 1.0, Sodium 138, Potassium 4.2, Chloride 104, Carbon Dioxide 20.3 L, Anion Gap 14, BUN 13, Creatinine 1.02, Estim Creat Clear Calc 102.77, Est GFR (MDRD) Non-Af 90, BUN/Creatinine Ratio 13.1, Glucose 118 H, Calcium 10.4, Total Bilirubin 1.60 H, Direct Bilirubin 0.73 H, AST 525 H, ALT 370 H, Alkaline Phosphatase 64, Total Protein 7.5, Albumin 4.7, Globulin 2.9, Albumin/Globulin Ratio 1.6, Lipase 50 03/16/25 10:37: Urine Color Yellow, Urine Clarity Sl. Cloudy, Urine pH 6.0, Ur Specific [place] 1.010, Urine Protein Negative, Urine Glucose (UA) Normal, UrineKetones Negative, Urine Occult Blood 10 H, Urine Nitrite Negative, Urine Bilirubin Negative, Urine Urobilinogen Normal, Ur Leukocyte Esterase Negative, Urine RBC 0 SEEN, Urine WBC 0 SEEN, Ur Squamous Epith Cells 0 SEEN, Urine Bacteria 0 SEEN, Urine Mucus 0 SEEN 03/17/25 05:47: WBC 11.5 H, RBC 5.40, Hgb 15.2, Hct 43.5, MCV 80.6, MCH 28.1, MCHC 34.9, RDW Std Deviation 38.0, RDW Coeff of Ghulam 13.2, Plt Count 242, MPV 10.7, Immature Gran % (Auto) 0.400, Neut % (Auto) 83.5 H, Lymph % (Auto) 12.9 L,Stanly % (Auto) 3.1, Eos % (Auto) 0.0, Baso % (Auto) 0.1, Absolute Neuts (auto) 9.6 H, Absolute Lymphs (auto) 1.48, Nucleated RBC % 0, Sodium 138, Potassium 4.0, Chloride 105, Carbon Dioxide 19.5 L, Anion Gap 13, BUN 9, Creatinine 0.92, Estim Creat Clear Calc 130.43, Est GFR (MDRD) Non-Af 101, BUN/Creatinine Ratio 9.9 L, Glucose 125 H, Calcium 9.0, Total Bilirubin 1.56 H, Direct Bilirubin 0.91H, AST 618 H, ALT 865 H, Alkaline Phosphatase 72, Total Protein 6.8, Albumin 4.2, Globulin 2.6 Radiography Diagnostic Testing: Radiology Impression Gallbladder Ultrasound 03/16/25 10:30 IMPRESSION: 1. Enlarged hyperechoic liver, suggesting hepatic steatosis, although other diffuse liver diseases can have this appearance. 2. Hypoechoic lesion in the right liver. A follow-up liver protocol CT or MRI is recommended to further evaluate. 3. Cholelithiasis without signs of acute cholecystitis. 4. Findings suggesting gallbladder adenomyomatosis. 5. Distended common bile duct, without an obstructing lesion seen. Reading Location: [facility] Abdomen/Pelvis CT 03/16/25 12:05 IMPRESSION: Fatty liver. Well-defined lesion right lobe of liver favor focal nodular hyperplasia. Follow-up MR of the abdomen with Eovist in 4-6 months to confirm stability possibly helpful. Reading Location: [id number] C-Arm Fluoroscopy 03/16/25 15:55 IMPRESSION: Intraoperative fluoroscopy status post ERCP, as above. Reading Location: [id number] ERCP X-Ray 03/16/25 15:55 IMPRESSION: Intraoperative fluoroscopy status post ERCP, as above. Reading Location: [facility] Rhythm Strip Rhythm Strip: Sinus Rhythm Rate: 76 Ectopy: None Physical Exam Narrative Seen and examined. Abdominal pain has improved but is still mild epigastric/RUQ discomfort. Liver chemistry shows mild increase in transaminases after ERCP. No fever. Physical exam: General: Alert, Oriented x3, Cooperative. BMI 25.7 kg/m? HEENT: Atraumatic, PERRLA, EOMI, Normocephalic. Oral: Oral mucosa dry. No Gingival or Mucosal Lesions/ Ulcerations Neck: Supple, No JVD, Negative Carotid Bruits Chest wall/Lungs: Air entry equal in bilateral lung bases. No crepitation/rhonchi Cardiovascular: Regular rate and rhythm, Normal S1,S2, No M/G/R Abdomen: Bowel Sounds sluggish, Soft, mild tenderness right upper quadrant and epigastric region. No distention : No dysuria. No renal angle tenderness. No suprapubic tenderness. Extremities: No edema, Capillary Refill Less than 3 Seconds Skin: No rashes, No breakdown Musculoskeletal: No Tenderness to Palpation of Joints or Extremities Neurological: Cranial nerves II-XII grossly intact, DTR 2+/4. No acute focal neurological deficit. Psych/Mental Status: Normal Affect, Appropriate. Assessment & Plan Assessment/Plan (1) Cholelithiasis with acute on chronic cholecystitis: PLAN: Plan 49-year-old gentleman came to ED with right upper and epigastric abdominal pain since 1:30 AM today with nausea. 1. Acute on chronic GB colic with cholelithiasis with suspicion of choledocholithiasis: Patient is being admitted to [facility] floor. RUQ sonogram shows cholelithiasis without signs of acute cholecystitis. 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 GB reported normal in size with multiple stones, wall thickness 1.6 cm with echogenic intraluminal foci present, comet artifact suggesting of GB adenomyomatosis. No pericholecystic fluid. Clinically patientdoes not have fever, leukocytosis therefore suspicion of acute cholecystitis less likely. Dr. Sarah consulted for ERCP. I discussed with surgeon Dr. Philip and she states she will follow peripherally but will need follow-up in surgery office for interval cholecystectomy as there is a big stone with possible central trapped air as seen on CT scan. 03/17: Discussed with the surgeon. Plan for office follow-up in 2 weeks after discharge. As transaminases are elevated but total bilirubin same probably mildirritation due to ERCP therefore we will keep the patient today. Continue IV antibiotic. Clear liquid, advance as per tolerated to full and soft diet. The patient does not seem to have cholecystitis features either clinically or radiologically. Mild increase in WBC count probably after reactive ERCP. ERCP on 03/16 Impression: - The entire main bile duct was moderately dilated, with a stone causing an obstruction. - Choledocholithiasis was found. Partial removal was accomplished with biliary sphincterotomy; a stent was inserted. - A biliary sphincterotomy was performed. - The biliary tree was swept. - One temporary stent was placed into the common bile duct. 2. Suspected Acute liver injury from cholelithiasis/and suspected choledocholithiasis: No previous lab to compare. Total bili 1.6, TB 0.73 AST 525, ALT 370, ALP normal. Lipase 50. 3. Liver lesion suspected benign lesion focal nodular hyperplasia and diffuse hepatic steatosis/MASLD/MASH: Ultrasound shows hypoechoic lesion in the right liver for which CT triple phase was done. It shows focal lesion right lobe of liver which enhance on the arterial image with partially fills on delayed images. There is central area with diminished enhancement. Lesion had similar enhancement to remainder of the liver on delayed images. It favors more focal nodular hyperplasia. Liver ultrasound shows enlarged hyperechoic liver suggestive of hepatic steatosis 03/17: Focal nodular hyperplasia explained to the patient and his . Benign developmental malformation liver lesion. 4. Unknown past medical history but patient denies hypertension or diabetes mellitus. He does not have PCP. Never smoker. Does not drink alcohol. No substance use. 03/17: Explained to the patient advised that he needs to establish PCP. 5. DVT prophylaxis, moderate risk on Lovenox 40 mg subcu daily Living will/advanced directive/end of life care: Patient does not have living will or advanced directive. After discussion of benefits/risks procedures involved with full code, DNR CC arrest and DNR CC, the patient opted for full code. Patient does want artificial life support including intubation, tube feed, ventilator and/chest compression, central venous catheter, vasopressor and DC shock if needed Total time spent in [id number] encounter in discussion of advanced directive 17 minutes. Laboratory Results 03/16/25 09:54: WBC 9.0, RBC 5.93, Hgb 17.0 H, Hct 48.0, MCV 80.9, MCH 28.7, MCHC 35.4, RDW Std Deviation 37.0, RDW Coeff of Ghulam 12.7, Plt Count 237, MPV 10.6, Immature Gran % (Auto) 0.400, Neut % (Auto) 75.9 H, Lymph % (Auto) 17.5 L,Stanly % (Auto) 4.8, Eos % (Auto) 1.0, Baso % (Auto) 0.4, Absolute Neuts (auto) 6.8, Absolute Lymphs (auto) 1.58, Nucleated RBC % 0, PT 13.3, INR 1.0, Sodium 138, Potassium 4.2, Chloride 104, Carbon Dioxide 20.3 L, Anion Gap 14, BUN 13, Creatinine 1.02, Estim Creat Clear Calc 102.77, Est GFR (MDRD) Non-Af 90, BUN/Creatinine Ratio 13.1, Glucose 118 H, Calcium 10.4, Total Bilirubin 1.60 H, Direct Bilirubin 0.73 H, AST 525 H, ALT 370 H, Alkaline Phosphatase 64, Total Protein 7.5, Albumin 4.7, Globulin 2.9, Albumin/Globulin Ratio 1.6, Lipase 50 03/16/25 10:37: Urine Color Yellow, Urine Clarity Sl. Cloudy, Urine pH 6.0, Ur Specific [place] 1.010, Urine Protein Negative, Urine Glucose (UA) Normal, UrineKetones Negative, Urine Occult Blood 10 H, Urine Nitrite Negative, Urine Bilirubin Negative, Urine Urobilinogen Normal, Ur Leukocyte Esterase Negative, Urine RBC 0 SEEN, Urine WBC 0 SEEN, Ur Squamous Epith Cells 0 SEEN, Urine Bacteria 0 SEEN, Urine Mucus 0 SEEN Laboratory Results 03/16/25 09:54: PT 13.3, INR 1.0, Direct Bilirubin 0.73 H 03/17/25 05:47: WBC 11.5 H, RBC 5.40, Hgb 15.2, Hct 43.5, MCV 80.6, MCH 28.1, MCHC 34.9, RDW Std Deviation 38.0, RDW Coeff of Ghulam 13.2, Plt Count 242, MPV 10.7, Immature Gran % (Auto) 0.400, Neut % (Auto) 83.5 H, Lymph % (Auto) 12.9 L,Stanly % (Auto) 3.1, Eos % (Auto) 0.0, Baso % (Auto) 0.1, Absolute Neuts (auto) 9.6 H, Absolute Lymphs (auto) 1.48, Nucleated RBC % 0, Sodium 138, Potassium 4.0, Chloride 105, Carbon Dioxide 19.5 L, Anion Gap 13, BUN 9, Creatinine 0.92, Estim Creat Clear Calc 130.43, Est GFR (MDRD) Non-Af 101, BUN/Creatinine Ratio 9.9 L, Glucose 125 H, Calcium 9.0, Total Bilirubin 1.56 H, Direct Bilirubin 0.91H, AST 618 H, ALT 865 H, Alkaline Phosphatase 72, Total Protein 6.8, Albumin 4.2, Globulin 2.6 Clinical Impression(s) from Imaging Studies Gallbladder Ultrasound 03/16/25 10:30 IMPRESSION: 1. Enlarged hyperechoic liver, suggesting hepatic steatosis, although other diffuse liver diseases can have this appearance. 2. Hypoechoic lesion in the right liver. A follow-up liver protocol CT or MRI is recommended to further evaluate. 3. Cholelithiasis without signs of acute cholecystitis. 4. Findings suggesting gallbladder adenomyomatosis. 5. Distended common bile duct, without an obstructing lesion seen. Abdomen/Pelvis CT 03/16/25 12:05 IMPRESSION: Fatty liver. Well-defined lesion right lobe of liver favor focal nodular hyperplasia. Follow-up MR of the abdomen with Eovist in 4-6 months to confirm stability possibly helpful. Reading Location: [id number] Charges/Coding Visit Charges Inpatient E&M: 76554 Subs Hosp L2 03/17/25 1305 <Electronically signed by Jose Guadalupe Puckett MD> Cosigner Signature (if applicable): CC: ~ Signed [facility] Work Phone: [phone]) 841-189409-27-2025 Progress note [facility] Medical Records Department [address] [place] [address] Progress Note - Hospitalist 03/17/25 5469 MR#: [id number] Acct: [id number] Name: ALONDRA ARITA Rep #:[id number] : 1975 49 From: Jose Guadalupe Italo M D PCP: Care Physician,No Primary Status :ADM IN Location: [facility] [id number] Reason for Visit Chief Complaint: Right upper quadrant abdominal pain started at 1:30 AM today. No relief Objective Data Objective Data Vital Signs: Vital Signs Temp Pulse Resp BP Pulse Ox O2 Del Method 97.8 F 71 15 107/63 95 Room Air 03/17/25 05:35 03/17/25 05:35 03/17/25 05:35 03/17/25 05:35 03/17/25 05:35 03/17/25 05:35 Oxygen Delivery Method Room Air Weight: 232 lb 9.403 oz Body Mass Index (BMI) 25.6 Intake & Output: Intake and Output for Last 24 Hours 03/15/25 03/16/25 03/17/25 23:59 23:59 23:59 Intake Total 1250 / 1250 1050 / 1050 Balance 1250 / 1250 1050 / 1050 Lab / Micro Data 03/17/25 05:47 03/17/25 05:47 Labs: Laboratory Results - last 24 hr 03/16/25 09:54: WBC 9.0, RBC 5.93, Hgb 17.0 H, Hct 48.0, MCV 80.9, MCH 28.7, MCHC 35.4, RDW Std Deviation 37.0, RDW Coeff of Ghulam 12.7, Plt Count 237, MPV 10.6, Immature Gran % (Auto) 0.400, Neut % (Auto) 75.9 H, Lymph % (Auto) 17.5 L,Stanly % (Auto) 4.8, Eos % (Auto) 1.0, Baso % (Auto) 0.4, Absolute Neuts (auto) 6.8, Absolute Lymphs (auto) 1.58, Nucleated RBC % 0, PT 13.3, INR 1.0, Sodium 138, Potassium 4.2, Chloride 104, Carbon Dioxide 20.3 L, Anion Gap 14, BUN 13, Creatinine 1.02, Estim Creat Clear Calc 102.77, Est GFR (MDRD) Non-Af 90, BUN/Creatinine Ratio 13.1, Glucose 118 H, Calcium 10.4, Total Bilirubin 1.60 H, Direct Bilirubin 0.73 H, AST 525 H, ALT 370 H, Alkaline Phosphatase 64, Total Protein 7.5, Albumin 4.7, Globulin 2.9, Albumin/Globulin Ratio 1.6, Lipase 50 03/16/25 10:37: Urine Color Yellow, Urine Clarity Sl. Cloudy, Urine pH 6.0, Ur Specific [place] 1.010, Urine Protein Negative, Urine Glucose (UA) Normal, UrineKetones Negative, Urine Occult Blood 10 H, Urine Nitrite Negative, Urine Bilirubin Negative, Urine Urobilinogen Normal, Ur Leukocyte Esterase Negative, Urine RBC 0 SEEN, Urine WBC 0 SEEN, Ur Squamous Epith Cells 0 SEEN, Urine Bacteria 0 SEEN, Urine Mucus 0 SEEN 03/17/25 05:47: WBC 11.5 H, RBC 5.40, Hgb 15.2, Hct 43.5, MCV 80.6, MCH 28.1, MCHC 34.9, RDW Std Deviation 38.0, RDW Coeff of Ghulam 13.2, Plt Count 242, MPV 10.7, Immature Gran % (Auto) 0.400, Neut % (Auto) 83.5 H, Lymph % (Auto) 12.9 L,Stanly % (Auto) 3.1, Eos % (Auto) 0.0, Baso % (Auto) 0.1, AbsoluteNeuts (auto) 9.6 H, Absolute Lymphs (auto) 1.48, Nucleated RBC % 0, Sodium 138, Potassium 4.0, Chloride 105, Carbon Dioxide 19.5 L, Anion Gap 13, BUN 9, Creatinine 0.92, Estim Creat Clear Calc 130.43, Est GFR (MDRD) Non-Af 101, BUN/Creatinine Ratio 9.9 L, Glucose 125 H, Calcium 9.0, Total Bilirubin1.56 H, Direct Bilirubin 0.91H, AST 618 H, ALT 865 H, Alkaline Phosphatase 72, Total Protein 6.8, Albumin 4.2, Globulin 2.6 Radiography Diagnostic Testing: Radiology Impression Gallbladder Ultrasound 03/16/25 10:30 IMPRESSION: 1. Enlarged hyperechoic liver, suggesting hepatic steatosis, although other diffuse liver diseases can have this appearance. 2. Hypoechoic lesion in the right liver. A follow-up liver protocol CT or MRI is recommended to further evaluate. 3. Cholelithiasis without signs of acute cholecystitis. 4. Findings suggesting gallbladder adenomyomatosis. 5. Distended common bile duct, without an obstructing lesion seen. Reading Location: [facility] Abdomen/Pelvis CT 03/16/25 12:05 IMPRESSION: Fatty liver. Well-defined lesion right lobe of liver favor focal nodular hyperplasia. Follow-up MR of the abdomen with Eovist in 4-6 months to confirm stability possibly helpful. Reading Location: [facility] C-Arm Fluoroscopy 03/16/25 15:55 IMPRESSION: Intraoperative fluoroscopy status post ERCP, as above. Reading Location: [facility] ERCP X-Ray 03/16/25 15:55 IMPRESSION: Intraoperative fluoroscopy status post ERCP, as above. Reading Location: [facility] Rhythm Strip Rhythm Strip: Sinus Rhythm Rate: 76 Ectopy: None Physical Exam Narrative Seen and examined. Abdominal pain has improved but is still mild epigastric/RUQ discomfort. Liver chemistry shows mildincrease in transaminases after ERCP. No fever. Physical exam: General: Alert, Oriented x3, Cooperative. BMI 25.7 kg/m? HEENT: Atraumatic, PERRLA, EOMI, Normocephalic. Oral: Oral mucosa dry. No Gingival or Mucosal Lesions/ Ulcerations Neck: Supple, No JVD, Negative Carotid Bruits Chest wall/Lungs: Air entry equal in bilateral lung bases. No crepitation/rhonchi Cardiovascular: Regular rate and rhythm, Normal S1,S2, No M/G/R Abdomen: Bowel Sounds sluggish, Soft, mild tenderness right upper quadrant and epigastric region. No distention : No dysuria. No renal angle tenderness. No suprapubic tenderness. Extremities: No edema, Capillary Refill Less than 3 Seconds Skin: No rashes, No breakdown Musculoskeletal: No Tenderness to Palpation of Joints or Extremities Neurological: Cranial nerves II-XII grossly intact, DTR 2+/4. No acute focal neurological deficit. Psych/Mental Status: Normal Affect, Appropriate. Assessment & Plan Assessment/Plan (1) Cholelithiasis with acute on chronic cholecystitis: PLAN: Plan 49-year-old gentleman came to ED with right upper and epigastric abdominal pain since 1:30 AM todaywith nausea. 1. Acute on chronic GB colic with cholelithiasis with suspicion of choledocholithiasis: Patient is being admitted to [facility] floor. RUQ sonogram shows cholelithiasis without signs of acute cholecystitis. 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 GB reported normal in size with multiple stones, wall thickness 1.6 cm with echogenic intraluminal foci present, comet artifact suggesting of GB adenomyomatosis. No pericholecystic fluid. Clinically patientdoes not have fever, leukocytosis therefore suspicion of acute cholecystitis less likely. Dr. Sarah consulted for ERCP. I discussed with melinda Philip and she states she will follow peripherally but will need follow-up in surgery office for interval cholecystectomy as there is a big stone with possible central trapped air as seen on CT scan. 03/17: Discussed with the surgeon. Plan for office follow-up in 2 weeks after discharge. As transaminases are elevated but total bilirubin same probably mildirritation due to ERCP therefore we will keep the patient today. Continue IV antibiotic. Clear liquid, advance as per tolerated to full and soft diet. The patient does not seem to have cholecystitis features either clinically or radiologically. Mild increase in WBC count probably after reactive ERCP. ERCP on 03/16 Impression: - The entire main bile duct was moderately dilated, with a stone causing an obstruction. - Choledocholithiasis was found. Partial removal was accomplished with biliary sphincterotomy; a stent was inserted. - A biliary sphincterotomy was performed. - The biliary tree was swept. - One temporary stent was placed into the common bile duct. 2. Suspected Acute liver injury from cholelithiasis/and suspected choledocholithiasis: No previous lab to compare. Total bili 1.6, TB 0.73 AST 525, ALT 370, ALP normal. Lipase 50. 3. Liver lesion suspected benign lesion focal nodular hyperplasia and diffuse hepatic steatosis/MASLD/MASH: Ultrasound shows hypoechoic lesion in the right liver for which CT triple phase was done. It shows focal lesion right lobe of liver which enhance on the arterial image with partially fills ondelayed images. There is central area with diminished enhancement. Lesion had similar enhancement to remainder of the liver on delayed images. It favors more focal nodular hyperplasia. Liver ultrasound shows enlarged hyperechoic liver suggestive of hepatic steatosis 03/17: Focal nodular hyperplasia explained to the patient and his . Benign developmental malformation liver lesion. 4. Unknown past medical history but patient denies hypertension or diabetes mellitus. He does not have PCP. Never smoker. Does not drink alcohol. No substance use. 03/17: Explained to the patient advised that he needs to establish PCP. 5. DVT prophylaxis, moderate risk on Lovenox 40 mg subcu daily Living will/advanced directive/end of life care: Patient does not have living will or advanced directive. After discussion of benefits/risks procedures involved with full code, DNR CC arrest and DNR CC, the patient opted for full code. Patient does want artificial life support including intubation, tube feed, ventilator and/chest compression, central venous catheter, vasopressor and DC shock if needed Total time spent in [id number] encounter in discussion of advanced directive 17 minutes. Laboratory Results 03/16/25 09:54: WBC 9.0, RBC 5.93, Hgb 17.0 H, Hct 48.0, MCV 80.9, MCH 28.7, MCHC 35.4, RDW Std Deviation 37.0, RDW Coeff of Ghulam 12.7, Plt Count 237, MPV 10.6, Immature Gran % (Auto) 0.400, Neut % (Auto) 75.9 H, Lymph % (Auto) 17.5 L,Stanly % (Auto) 4.8, Eos % (Auto) 1.0, Baso % (Auto) 0.4, Absolute Neuts (auto) 6.8, Absolute Lymphs (auto) 1.58, Nucleated RBC % 0, PT 13.3, INR 1.0, Sodium 138, Potassium 4.2, Chloride 104, Carbon Dioxide 20.3 L, Anion Gap 14, BUN 13, Creatinine 1.02, Estim Creat Clear Calc 102.77, Est GFR (MDRD) Non-Af 90, BUN/Creatinine Ratio 13.1, Glucose 118 H, Calcium 10.4, Total Bilirubin 1.60 H, Direct Bilirubin 0.73 H, AST 525 H, ALT 370 H, Alkaline Phosphatase 64, Total Protein 7.5, Albumin 4.7, Globulin 2.9, Albumin/Globulin Ratio 1.6, Lipase 50 03/16/25 10:37: Urine Color Yellow, Urine Clarity Sl. Cloudy, Urine pH 6.0, Ur Specific [place] 1.010, Urine Protein Negative, Urine Glucose (UA) Normal, UrineKetones Negative, Urine Occult Blood 10 H, Urine Nitrite Negative, Urine Bilirubin Negative, Urine Urobilinogen Normal, Ur Leukocyte Esterase Negative, Urine RBC 0 SEEN, Urine WBC 0 SEEN, Ur Squamous Epith Cells 0 SEEN, Urine Bacteria 0 SEEN, Urine Mucus 0 SEEN Laboratory Results 03/16/25 09:54: PT 13.3, INR 1.0, Direct Bilirubin 0.73 H 03/17/25 05:47: WBC 11.5 H, RBC 5.40, Hgb 15.2, Hct 43.5, MCV 80.6, MCH 28.1, MCHC 34.9, RDW Std Deviation 38.0, RDW Coeff of Ghulam 13.2, Plt Count 242, MPV 10.7, Immature Gran % (Auto) 0.400, Neut % (Auto) 83.5 H, Lymph % (Auto) 12.9 L,Stanly % (Auto) 3.1, Eos % (Auto) 0.0, Baso % (Auto) 0.1, AbsoluteNeuts (auto) 9.6 H, Absolute Lymphs (auto) 1.48, Nucleated RBC % 0, Sodium 138, Potassium 4.0, Chloride 105, Carbon Dioxide 19.5 L, Anion Gap 13, BUN 9, Creatinine 0.92, Estim Creat Clear Calc 130.43, Est GFR (MDRD) Non-Af 101, BUN/Creatinine Ratio 9.9 L, Glucose 125 H, Calcium 9.0, Total Bilirubin1.56 H, Direct Bilirubin 0.91H, AST 618 H, ALT 865 H, Alkaline Phosphatase 72, Total Protein 6.8, Albumin 4.2, Globulin 2.6 Clinical Impression(s) from Imaging Studies Gallbladder Ultrasound 03/16/25 10:30 IMPRESSION: 1. Enlarged hyperechoic liver, suggesting hepatic steatosis, although other diffuse liver diseases can have this appearance. 2. Hypoechoic lesion in the right liver. A follow-up liver protocol CT or MRI is recommended to further evaluate. 3. Cholelithiasis without signs of acute cholecystitis. 4. Findings suggesting gallbladder adenomyomatosis. 5. Distended common bile duct, without an obstructing lesion seen. Abdomen/Pelvis CT 03/16/25 12:05 IMPRESSION: Fatty liver. Well-defined lesion right lobe of liver favor focal nodular hyperplasia. Follow-up MR of the abdomen with Eovist in 4-6 months to confirm stability possibly helpful. Reading Location: [id number] Charges/Coding Visit Charges Inpatient E&M: 79175 Subs Hosp L2 03/17/25 1302 Cosigner Signature (if applicable): CC: ~ Signed [facility]09-26-2025 Radiology Diagnostic study note [facility] Imaging Services [address] [place], [place] [id number] ERCP Biliary Only MR#: [id number] Acct: [id number] Name: ALONDRA ARITA Rep #: [id number] : 1975 M 49 From: Tesfaye Elliott MD PCP: Care Physician,No Primary Status: ADM IN Study:ERCP Biliary Only Date of Exam: Exam# [id number] Ordering Dr: Lobito Sarah DO EXAM: ERCP INTRAOPERATIVE FLUOROSCOPY CLINICAL HISTORY: ERCP; pain COMPARISON: Right ankle radiographs from 08/12/2014 TECHNIQUE: 10 intraoperative fluoroscopic images are submitted for review. FINDINGS: Patient is status post ERCP, which demonstrates grossly normal caliber of the intra and extrahepatic biliary ductal system, without evidence for stricture or filling defects to indicate choledocholithiasis. Total fluoroscopy time 91.1 seconds. Total radiation dose 36.45 mGy. RAD/ERCP Biliary Only IMPRESSION: Intraoperative fluoroscopy status post ERCP, as above. Reading Location: [facility] CC: No Primary Care Physician; Yevgeniy Sarah DO ~ Clam Shovel Operator: Signed [facility]09-26-2025 Radiology Diagnostic study note [facility] Imaging Services [address] [place], [place] [id number] O.R. Fluoro for C-Arm MR#: [id number] Acct: [id number] Name: ALONDRA ARITA Rep #: [id number] : 1975 M 49 From: Tesfaye Elliott MD PCP: Care Physician,No Primary Status: ADM IN Study:O.R. Fluoro for C-Arm Date of Exam: 03/16/25 Exam# [id number] Ordering Dr: Lobito Sarah DO EXAM: ERCP INTRAOPERATIVE FLUOROSCOPY CLINICAL HISTORY: ERCP; pain COMPARISON: Right ankle radiographs from 08/12/2014 TECHNIQUE: 10 intraoperative fluoroscopic images are submitted for review. FINDINGS: Patient is status post ERCP, which demonstrates grossly normal caliber of the intra and extrahepatic biliary ductal system, without evidence for stricture or filling defects to indicate choledocholithiasis. Total fluoroscopy time 91.1 seconds. Total radiation dose 36.45 mGy. RAD/O.R. Fluoro for C-Arm IMPRESSION: Intraoperative fluoroscopy status post ERCP, as above. Reading Location: [id number] CC: No Primary Care Physician; DO Funmilayo Hood Clam Shovel Operator: Signed [facility]09-26-2025 Consult note Author Armando Gomez [facility] Note Date/Time March 18, 2025 12:45pm [facility] Medical Records Department [address] [place] [address] Anesthesia Postop Eval II 03/16/251654 MR#: [id number] Acct: [id number] Name: ALONDRA ARITA Rep #:[id number] : 1975 49 From: Armando White PCP: Care Physician,No Primary Status :ADM IN Y Race: C Location: [place] [address] Anesthesia Postop Eval I Sum Anesthesia Postop Eval I Summary Anesthesia Postop Eval I Summary: Anesthesia Postop Eval I: Assessment Summary Airway patent Spontaneous unlabored respirations Mental status nausea Vomiting Anesthesia Postop Eval I: Fluid Summary Crystalloid volume administer (ml) Colloids volume administered ( ml) Blood Product volume administered (ml) Total IV fluid infused Anesthesia Postop Eval I: Summary Notes Anesthesia Complication Anesthesia Complication Comment: Post-operative progress note Anesthesia: Postop Eval II Evaluation Mental status: Awake and Calm Pain Level: 1 nausea: No Vomiting: No Complications Anesthesia Complication: No 03/16/251654 <Electronically signed by Armando Gomez MD> Date _ Armando Galaviz Signature: Date CC: ~ Signed [facility] Work Phone: 1(980) 642-113609-26-2025 Consult note Author Yevgeniy Sarah [facility] Note Date/Time March 16, 2025 3:40pm [facility] Medical Records Department [address] [place] [address] Consultation - GI 03/16/25 1537 MR#: [id number] Acct: [id number] Name: ALONDRA ARITA Rep #:[id number] : 1975 49 From: Yevgeniy Sarah DO PCP: Care Physician,No Primary Status :ADM IN Location: [facility] [id number] HPI Consult Data Date of Consult: 03/16/25 HPI Narrative HPI Narrative: ALONDRA ARITA, is a 49-year-old male with no significant past medical history presenting with worsening upper abdominal pain. States has been having issues with epigastric/right upper quadrant abdominal pain for some time and self diagnosed himself with gallstone/gallbladder problems. He states most recently had episode about 2 weeks ago where he had relatively severe pain in her right upper quadrant after eating a particularly fatty meal that lasted for about 3 hours. States since then he has been watching his diet. Last night he had [employer] (a burrito and chalupa) around 6 PM and then egahgu33 PM had a cold cut sandwich and glass of iced tea. States that around 1:30 AMhe started to have pain in his upper abdomen area that is more in the middle butgoes across his whole upper abdomen. He denies any radiation to his back or chest. Has associated nausea. States the pain is not as sharp as has been before but is more dull in nature. Took 2 Tums around 6 AM with no significant relief. Total Bilirubin 1.60 H, Direct Bilirubin 0.73 H, AST 525 H, ALT 370 H, Alkaline Phosphatase 64 PFSH Medical History GERD (gastroesophageal reflux disease) Medical History no medical history Allergy/AdvReac Type Severity Reaction Status Date / Time No Known Allergies Allergy Verified 03/16/25 13:09 Social History Smoking Status: Never smoker ROS Constitutional Constitutional: Denies fatigue, fever(s), poor appetite, weight gain or weight loss Gastrointestinal Gastrointestinal: Denies belching, bloating, change in bowel habits, change in stool character, chewing difficulty, coffee ground emesis, constipation, cramping, diarrhea, dyspepsia, dysphagia, early satiety, excessive flatus, fecalincontinence, heartburn, hematemesis, hematochezia, hemorrhoids, loose stools, melena, nausea, odynophagia, rectal bleeding, tenesmus, vomiting or weight changes Physical Exam Const alert, oriented x3, no apparent distress and healthy appearing General Appearance: cooperative GI normal to inspection, nondistended, normoactive bowel sounds, soft to palpation,non-tender and non-distended Percussion: normal to percussion Rectal Exam: deferred Lab / Micro Data 03/16/25 09:54 03/16/25 09:54 Labs: Laboratory Results - last 24 hr 03/16/25 09:54: WBC 9.0, RBC 5.93, Hgb 17.0 H, Hct 48.0, MCV 80.9, MCH 28.7, MCHC 35.4, RDW Std Deviation 37.0, RDW Coeff of Ghulam 12.7, Plt Count 237, MPV 10.6, Immature Gran % (Auto) 0.400, Neut % (Auto) 75.9 H, Lymph % (Auto) 17.5 L,Stanly % (Auto) 4.8, Eos % (Auto) 1.0, Baso % (Auto) 0.4, Absolute Neuts (auto) 6.8, Absolute Lymphs (auto) 1.58, Nucleated RBC % 0, PT 13.3, INR 1.0, Sodium 138, Potassium 4.2, Chloride 104, Carbon Dioxide 20.3 L, Anion Gap 14, BUN 13, Creatinine 1.02, Estim Creat Clear Calc 102.77, Est GFR (MDRD) Non-Af 90, BUN/Creatinine Ratio 13.1, Glucose 118 H, Calcium 10.4, Total Bilirubin 1.60 H, Direct Bilirubin 0.73 H, AST 525 H, ALT 370 H, Alkaline Phosphatase 64, Total Protein 7.5, Albumin 4.7, Globulin 2.9, Albumin/Globulin Ratio 1.6, Lipase 50 03/16/25 10:37: Urine Color Yellow, Urine Clarity Sl. Cloudy, Urine pH 6.0, Ur Specific [place] 1.010, Urine Protein Negative, Urine Glucose (UA) Normal, UrineKetones Negative, Urine Occult Blood 10 H, Urine Nitrite Negative, Urine Bilirubin Negative, Urine Urobilinogen Normal, Ur Leukocyte Esterase Negative, Urine RBC 0 SEEN, Urine WBC 0 SEEN, Ur Squamous Epith Cells 0 SEEN, Urine Bacteria 0 SEEN, Urine Mucus 0 SEEN Imaging Radiology Impression Gallbladder Ultrasound 03/16/25 10:30 IMPRESSION: 1. Enlarged hyperechoic liver, suggesting hepatic steatosis, although other diffuse liver diseases can have this appearance. 2. Hypoechoic lesion in the right liver. A follow-up liver protocol CT or MRI is recommended to further evaluate. 3. Cholelithiasis without signs of acute cholecystitis. 4. Findings suggesting gallbladder adenomyomatosis. 5. Distended common bile duct, without an obstructing lesion seen. Reading Location: [facility] Abdomen/Pelvis CT 03/16/25 12:05 IMPRESSION: Fatty liver. Well-defined lesion right lobe of liver favor focal nodular hyperplasia. Follow-up MR of the abdomen with Eovist in 4-6 months to confirm stability possibly helpful. Reading Location: [id number] Assessment & Plan Assessment/Plan (1) Cholelithiasis with acute on chronic cholecystitis: PLAN: Plan 49-year-old gentleman came to ED with right upper and epigastric abdominal pain since 1:30 AM today with nausea. Acute on chronic GB colic with cholelithiasis with suspicion of choledocholithiasis: . RUQ sonogram shows cholelithiasis without signs of acutecholecystitis. 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 GB reported normal in size with multiple stones, wall thickness 1.6 cm with echogenic intraluminal foci present, travel artifact suggesting of GB adenomyomatosis. Patient will undergo ERCP. He was explained alternatives, risk and benefits include # of bleeding, fracture, sepsis, perforation, need for surgery . He will have an ASA of 3. Suspected Acute liver injury from cholelithiasis/and suspected choledocholithiasis: No previous lab to compare. Total bili 1.6, TB 0.73 AST 525, ALT 370, ALP normal. Lipase 50. Charges/Coding Visit Charges Inpatient E&M: 98512 Init Hosp L3 03/16/25 1540 <Electronically signed by Yevgeniy Friend DO> Cosigner Signature (if applicable): CC: No Primary Care Physician~ Signed [facility] Work Phone: 1(195) 232-127009-26-2025 Consult note Author Armando Gomez [facility] Note Date/Time March 16, 2025 2:34pm [facility] Medical Records Department [address] [place] [address] Pre-Anesthesia Evaluation 03/16/25 1433 MR#: [id number] Acct: [id number] Name: ALONDRA ARITA Rep #:[id number] : 1975 49 From: Armando White PCP: Care Physician,No Primary Status :ADM IN Y Race: C Location: [place] [address] ASA Classification* ASA Classification ASA Classification: 1 and E Assessment & Plan Anesthesia* Anesthesia Assessment Anesthesia Assessment: Discussed sedation and/or anesthesia options, risks, benefits, and alternatives with patient/parents/legal guardian/POA. Questions invited. The patient/parents/legal guardian/POA seems to understand and agrees to proceedwith anesthesia plan. Reviewed the physical assessment, medical history, allergy history and patient home medications list prior to surgery/procedure/anesthetic and documented any changes. Performed airway and anesthesia risk assessments. Anesthesia Type Anesthesia Type: General and MAC History Source History Obtained from:: Patient and Chart Anesthesia Focused Assessment* Temperature: 98 F Pulse Rate: 72 Blood Pressure: 146/98 Respiratory Rate: 18 Pulse Ox: 97 Oxygen Delivery Method: Room Air Airway Assessment Mouth opens: >3 cm Mallampati Score: II Teeth Condition: Intact Neck Range of motion (ROM): Full ROM Labs Anesthesia Preop lab: CBC WBC, (4.4-11.0) 9.0 K/mm3 Today, 09:54 RBC, (4.6-6.2) 5.93 M/mm3 Today, 09:54 Hgb, (13.0-16.5) 17.0 g/dL H Today, 09:54 Hct, (40-54) 48.0 % Today, 09:54 Plt Count, (150-450) 237 K/mm3 Today, 09:54 CHEMISTRY Potassium, (3.3-5.1) 4.2 mmol/L Today, 09:54 Sodium, (133-145) 138 mmol/L Today, 09:54 BUN, (4-19) 13 mg/dL Today, 09:54 Creatinine, (0.70-1.20) 1.02 mg/dL Today, 09:54 Glucose, (70-99) 118 mg/dL H Today, 09:54 COAG PT, (11.7-14.9) 13.3 SECONDS Today, 09:54 Pre-Assessment Diagnosis/Proposed Procedure Planned Operative Procedure(s): ERCP Anesthesia History Anesthesia History - garnetter: Anesthesia History - garnetter Hx Hospitalization Any Problems With Anesthesia No 03/16/25 13:51 Cholinesterase deficiency No 03/16/25 13:51 You/Your Family Experience No 03/16/25 13:51 fever (hyperthermia) with Relationship Recent Exposure to Contagious No 03/16/25 13:51 Disease Does patient have nerve No 03/16/25 13:51 stimulator Patient instructed to have No 03/16/25 13:51 device shut off --Does patient have Pacemaker or ICD? When Was Last Pacemaker Check QUESTION #4 FULL TEXT: You/Your Family Experience fever (hyperthermia) with Anesthesia Last Oral Intake Last Oral intake: Last Oral Intake NPO since Meds taken in AM with sips of water? Meds patient instructed to take am of surgery PONV PONV - garnetter: PONV - garnetter Female HX of Motion Sickness HX of N/V After Surgery Non-Smoker Duration of Surgery greater than 60 minutes Number of Risk Factors PONV Score Height & Weight Height & Weight: Anesthesia: Height & Weight Height 6 ft 8 in 03/16/25 13:04 Weight: 106.141 kg 03/16/25 13:04 Body Mass Index (BMI) 25.7 03/16/25 13:04 Respiratory Assessment Respiratory Assessment - garnetter: Respiratory Tract Infection Hx - garnetter Hx Respiratory Tract Infection No 03/16/25 13:51 STOP Sleep Apnea STOP Sleep Apnea - garnetter: STOP Sleep Apnea - garnetter Hx Hypertension No 03/16/25 13:53 Hx Sleep Apnea No 03/16/25 13:04 CPAP BIPAP Do you snore loudly (louder Yes 03/16/25 13:04 than talking or can be heard Do you often feel tired/ No 03/16/25 13:04 fatigued/ sleepy during daytime? Has anyone observed you stop No 03/16/25 13:04 breathing during sleep? STOP Results Negative 03/16/25 13:04 QUESTION #5 FULL TEXT : Do you snore loudly (louder than talking or can be heard through closed doors)? 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 Specify any problems Hx of Preganancy in last 3 N/A 03/16/25 13:04 Months Nurse Filling Out Transfusion TWOLF 03/16/25 13:04 & Questions: Date: 03/16/25 03/16/25 13:04 Time: 13:06 03/16/25 13:04 Patient unable to answer at this time (ie. confused, unrespo /Reproduction History /Reproductive History - garnetter: /Reproductive Hx- garnetter Hx Now No 03/16/25 13:51 Gestational Age (in weeks): EDC: Hx Hx Para Hx Section SAB No 03/16/25 13:51 Active Medications Active Medications: Current Medications Generic Name Dose Route Start Last Admin Trade Name Freq PRN Reason Stop Dose Admin Acetaminophen 650 mg 03/16/25 13:32 Acetaminophen 325 Mg Tablet PO Q6H PRN PRN Pain 1-10 Or Fever>100.7 Enoxaparin Sodium 40 mg 03/16/25 13:32 03/16/25 13:56 Enoxaparin 40 Mg/0.4 Ml Syringe SC Not Given Q24H DIA Sodium Chloride 250 mls @ 15 mls/hr 03/16/25 13:09 IV .[id number] PRN Saline Flush Sodium Chloride 250 mls @ 15 mls/hr 03/16/25 13:09 IV .[id number] PRN Additional IVPB Infusion Piperacillin Sod/Tazobactam 50 mls @ 12.5 mls/hr 03/16/25 13:30 03/16/25 13:40 Sod 3.375 gm/ Sodium Chloride IV 12.5 mls/hr Q8 DIA Administration Sodium Chloride 1,000 mls @ 75 mls/hr 03/16/25 13:32 03/16/25 13:43 IV 03/17/25 16:11 75 mls/hr .[id number] DIA Administration Influenza Virus Vacc Trival Recomb 45 mcg 03/17/25 10:00 Flu Vaccine 2024-(6mos Up) 45 Mcg/0.5 Ml Syringe IM 03/17/25 10:01 .ONCE ONE Morphine Sulfate 2 - 4 mg 03/16/25 13:32 Morphine 2 Mg/Ml Syringe IV Q3H PRN PRN Pain Score 6-10 Senna/Docusate Sodium 2 tablet 03/16/25 13:32 Senna/Docusate Sodium 1 Tablet PO BID PRN PRN Constipation Sodium Chloride 10 - 40 ml 03/16/25 13:09 0.9% Saline Lock 10 Ml Syringe IV UD PRN SALINE FLUSH PFSH Medical History GERD (gastroesophageal reflux disease) Medical History no medical history Allergy/AdvReac Type Severity Reaction Status Date / Time No Known Allergies Allergy Verified 03/16/25 13:09 Social History Smoking Status: Never smoker Review of Systems (Anesthesia) ROS Narrative System reviewed and no additional complaints, except as documented. 03/16/25 1434 <Electronically signed by Armando Gomez MD> Date _ Armando Gomez MD Cosigner Signature: Date CC: ~ Signed [facility] Work Phone: 1(238) 421-999209-26-2025 History and physical note Author Jose Guadalupe Puckett [facility] Note Date/Time March 16, 2025 2:14pm [facility] Medical Records Department [address] [place] [address] H&P Exam - Hospitalist 03/16/25 1334 MR#: [id number] Acct: [id number] Name: ALONDRA ARITA Rep #:[id number] : 1975 49 From: Jose Guadalupe White PCP: Care Physician,No Primary Status :ADM IN Location: [place] [id number] HPI - General General Date of Admission: 03/16/25 Date of Service: 03/16/25 Chief Complaint: Right upper quadrant abdominal pain started at 1:30 AM today. No relief HPI Narrative ALONDRA ARITA, is a 49 M with history of intermittent right upper quadrant painfor 5 years probably GB colic, once every 2 to 4 months came to the ED when he got right upper quadrant pain, gnawing in type , long-lasting did not get bettersince 1:30 AM today. Patient stated previous episode, used to get better in a half an hour but this time it was not getting better. He said he never had beenevaluated by previous episodes of abdominal pain continues to get better with Motrin. No fever, nausea but no vomiting. Pain is more about her right upper and epigastric region ,localized with no radiation. In ED, right upper quadrant shows cholelithiasis, CBD dilatation, liver lesion, described in assessment plan. PENDING SALE TO [facility] Medical History GERD (gastroesophageal reflux disease) Medical History no medical history Allergy/AdvReac Type Severity Reaction Status Date / Time No Known Allergies Allergy Verified 03/16/25 13:09 Social History Smoking Status: Never smoker ROS ROS Narrative Constitutional: Reports fatigue and weakness. No fever. HEENT: Reports systems reviewed and no addt'l complaints, except as documented Respiratory/Chest: No smoking. No acute shortness of breath or respiratory distress or wheezing. CVS: No chest pain pressure tightness. Denies chronic cardiac disease Gastrointestinal: Rest as described in HPI. Bowel movements are normal. Deniescoffee ground emesis, hematemesis or vomiting Genitourinary: Denies burning urination or new urinary tract symptoms Musculoskeletal: Denies acute joint pain or limited range of motion. No acute injury Neurologic: Denies seizure-like symptoms. skin: No ulcer. No rash Endocrinology: Reports systems reviewed and no addt'l complaints, except as documented Hematologic/Lymphatic: Reports systems reviewed and no addt'l complaints, exceptas documented Rest 14 ROS are negative except as mentioned in HPI Vital Signs Vital Signs Vital Signs: 03/16/25 09:32 03/16/25 11:32 03/16/25 12:30 Temperature 97.2 F L 98.7 F Temperature Source Temporal Pulse Rate 100 75 68 Respiratory Rate 14 18 18 Respiratory Effort Respiratory Depth Respiratory Pattern Blood Pressure 153/88 H 113/73 121/78 H Blood Pressure Mean 109 86 92 Blood Pressure Source Blood Pressure Position Blood Pressure Location Pulse Ox 99 97 98 Oxygen Delivery Method Room Air Room Air 03/16/25 13:03 03/16/25 13:12 Temperature 98 F Temperature Source Oral Pulse Rate 72 Respiratory Rate 18 Respiratory Effort Normal Respiratory Depth Normal Respiratory Pattern Normal Blood Pressure 146/98 H Blood Pressure Mean 114 Blood Pressure Source Monitor Blood Pressure Position Sitting Blood Pressure Location Left Forearm Pulse Ox 97 Oxygen Delivery Method Room Air Room Air Weight Weight: 234 lb Body Mass Index (BMI) 25.7 Physical Exam Narrative General: Alert, Oriented x3, Cooperative. BMI 25.7 kg/m? HEENT: Atraumatic, PERRLA, EOMI, Normocephalic. Oral: Oral mucosa dry. No Gingival or Mucosal Lesions/ Ulcerations Neck: Supple, No JVD, Negative Carotid Bruits Chest wall/Lungs: Air entry equal in bilateral lung bases. No crepitation/rhonchi Cardiovascular: Regular rate and rhythm, Normal S1,S2, No M/G/R Abdomen: Bowel Sounds sluggish, Soft, mild tenderness right upper quadrant and epigastric region. No distention : No dysuria. No renal angle tenderness. No suprapubic tenderness. Extremities: No edema, Capillary Refill Less than 3 Seconds Skin: No rashes, No breakdown Musculoskeletal: No Tenderness to Palpation of Joints or Extremities Neurological: Cranial nerves II-XII grossly intact, DTR 2+/4. No acute focal neurological deficit. Psych/Mental Status: Normal Affect, Appropriate. Results Lab / Micro Data 03/16/25 09:54 03/16/25 09:54 Labs: Laboratory Results - last 24 hr 03/16/25 09:54: WBC 9.0, RBC 5.93, Hgb 17.0 H, Hct 48.0, MCV 80.9, MCH 28.7, MCHC 35.4, RDW Std Deviation 37.0, RDW Coeff of Ghulam 12.7, Plt Count 237, MPV 10.6, Immature Gran % (Auto) 0.400, Neut % (Auto) 75.9 H, Lymph % (Auto) 17.5 L,Stanly % (Auto) 4.8, Eos % (Auto) 1.0, Baso % (Auto) 0.4, Absolute Neuts (auto) 6.8, Absolute Lymphs (auto) 1.58, Nucleated RBC % 0, Sodium 138, Potassium 4.2, Chloride 104, Carbon Dioxide 20.3 L, Anion Gap 14, BUN 13, Creatinine 1.02, Estim Creat Clear Calc 102.77, Est GFR (MDRD) Non-Af 90, BUN/Creatinine Ratio 13.1, Glucose 118 H, Calcium 10.4, Total Bilirubin 1.60 H, Direct Bilirubin 0.73H, AST 525 H, ALT 370 H, Alkaline Phosphatase 64, Total Protein 7.5, Albumin 4.7, Globulin 2.9, Albumin/Globulin Ratio 1.6, Lipase 50 03/16/25 10:37: Urine Color Yellow, Urine Clarity Sl. Cloudy, Urine pH 6.0, Ur Specific [place] 1.010, Urine Protein Negative, Urine Glucose (UA) Normal, UrineKetones Negative, Urine Occult Blood 10 H, Urine Nitrite Negative, Urine Bilirubin Negative, Urine Urobilinogen Normal, Ur Leukocyte Esterase Negative, Urine RBC 0 SEEN, Urine WBC 0 SEEN, Ur Squamous Epith Cells 0 SEEN, Urine Bacteria 0 SEEN, Urine Mucus 0 SEEN Imaging Radiology Impression Gallbladder Ultrasound 03/16/25 10:30 IMPRESSION: 1. Enlarged hyperechoic liver, suggesting hepatic steatosis, although other diffuse liver diseases can have this appearance. 2. Hypoechoic lesion in the right liver. A follow-up liver protocol CT or MRI is recommended to further evaluate. 3. Cholelithiasis without signs of acute cholecystitis. 4. Findings suggesting gallbladder adenomyomatosis. 5. Distended common bile duct, without an obstructing lesion seen. Reading Location: [facility] Assessment & Plan Assessment/Plan (1) Cholelithiasis with acute on chronic cholecystitis: PLAN: Plan 49-year-old gentleman came to ED with right upper and epigastric abdominal pain since 1:30 AM today with nausea. 1. Acute on chronic GB colic with cholelithiasis with suspicion of choledocholithiasis: Patient is being admitted to [facility] floor. RUQ sonogram shows cholelithiasis without signs of acute cholecystitis. 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 GB reported normal in size with multiple stones, wall thickness 1.6 cm with echogenic intraluminal foci present, travel artifact suggesting of GB adenomyomatosis. No pericholecystic fluid. Clinically patientdoes not have fever, leukocytosis therefore suspicion of acute cholecystitis less likely. Dr. Sarah consulted for ERCP. I discussed with surgeon Dr. Philip and she states she will follow peripherally but will need follow-up in surgery office for interval cholecystectomy as there is a big stone with possible central trapped air as seen on CT scan. 2. Suspected Acute liver injury from cholelithiasis/and suspected choledocholithiasis: No previous lab to compare. Total bili 1.6, TB 0.73 AST 525, ALT 370, ALP normal. Lipase 50. 3. Liver lesion suspected benign lesion focal nodular hyperplasia and diffuse hepatic steatosis/MASLD/MASH: Ultrasound shows hypoechoic lesion in the right liver for which CT triple phase was done. It shows focal lesion right lobe of liver which enhance on the arterial image with partially fills on delayed images. There is central area with diminished enhancement. Lesion had similar enhancement to remainder of the liver on delayed images. It favors more focal nodular hyperplasia. Liver ultrasound shows enlarged hyperechoic liver suggestive of hepatic steatosis 4. Unknown past medical history but patient denies hypertension or diabetes mellitus. He does not have PCP. Never smoker. Does not drink alcohol. No substance use. 5. DVT prophylaxis, moderate risk on Lovenox 40 mg subcu daily Living will/advanced directive/end of life care: Patient does not have living will or advanced directive. After discussion of benefits/risks procedures involved with full code, DNR CC arrest and DNR CC, the patient opted for full code. Patient does want artificial life support including intubation, tube feed, ventilator and/chest compression, central venous catheter, vasopressor and DC shock if needed Total time spent in [id number] encounter in discussion of advanced directive 17 minutes. Laboratory Results 03/16/25 09:54: WBC 9.0, RBC 5.93, Hgb 17.0 H, Hct 48.0, MCV 80.9, MCH 28.7, MCHC 35.4, RDW Std Deviation 37.0, RDW Coeff of Ghulam 12.7, Plt Count 237, MPV 10.6, Immature Gran % (Auto) 0.400, Neut % (Auto) 75.9 H, Lymph % (Auto) 17.5 L,Stanly % (Auto) 4.8, Eos % (Auto) 1.0, Baso % (Auto) 0.4, Absolute Neuts (auto) 6.8, Absolute Lymphs (auto) 1.58, Nucleated RBC % 0, PT 13.3, INR 1.0, Sodium 138, Potassium 4.2, Chloride 104, Carbon Dioxide 20.3 L, Anion Gap 14, BUN 13, Creatinine 1.02, Estim Creat Clear Calc 102.77, Est GFR (MDRD) Non-Af 90, BUN/Creatinine Ratio 13.1, Glucose 118 H, Calcium 10.4, Total Bilirubin 1.60 H, Direct Bilirubin 0.73 H, AST 525 H, ALT 370 H, Alkaline Phosphatase 64, Total Protein 7.5, Albumin 4.7, Globulin 2.9, Albumin/Globulin Ratio 1.6, Lipase 50 03/16/25 10:37: Urine Color Yellow, Urine Clarity Sl. Cloudy, Urine pH 6.0, Ur Specific [place] 1.010, Urine Protein Negative, Urine Glucose (UA) Normal, UrineKetones Negative, Urine Occult Blood 10 H, Urine Nitrite Negative, Urine Bilirubin Negative, Urine Urobilinogen Normal, Ur Leukocyte Esterase Negative, Urine RBC 0 SEEN, Urine WBC 0 SEEN, Ur Squamous Epith Cells 0 SEEN, Urine Bacteria 0 SEEN, Urine Mucus 0 SEEN Clinical Impression(s) from Imaging Studies Gallbladder Ultrasound 03/16/25 10:30 IMPRESSION: 1. Enlarged hyperechoic liver, suggesting hepatic steatosis, although other diffuse liver diseases can have this appearance. 2. Hypoechoic lesion in the right liver. A follow-up liver protocol CT or MRI is recommended to further evaluate. 3. Cholelithiasis without signs of acute cholecystitis. 4. Findings suggesting gallbladder adenomyomatosis. 5. Distended common bile duct, without an obstructing lesion seen. Abdomen/Pelvis CT 03/16/25 12:05 IMPRESSION: Fatty liver. Well-defined lesion right lobe of liver favor focal nodular hyperplasia. Follow-up MR of the abdomen with Eovist in 4-6 months to confirm stability possibly helpful. Reading Location: [facility] Charges/Coding Visit Charges Inpatient E&M: 96830 Init Hosp L3 Procedures Hospitalists Procedures: 72187 Advncd Care Plan 30 Min 03/16/25 1414 <Electronically signed by Jose Guadalupe Puckett MD> Cosigner Signature (if applicable): CC: Dr. Jose Guadalupe Puckett MD; Dr. Abbie Philip MD; No Primary Care Physician;Yevgeniy Sarah DO~ Signed [facility] Work Phone: [phone]) 240-806509-26-2025 Consult note [facility] Medical Records Department [address] [place] [address] Consultation - GI 03/16/25 1537 MR#: [id number] Acct: [id number] Name: ALONDRA ARITA Rep #:[id number] : 1975 49 From: Yevgeniy Sarah DO PCP: Care Physician,No Primary Status :ADM IN Location: [place] [id number] HPI Consult Data Date of Consult: 03/16/25 HPI Narrative HPI Narrative: ALONDRA ARITA, is a 49-year-old male with no significant past medical history presenting with worsening upper abdominal pain. States has been having issues with epigastric/right upper quadrant abdominal pain for some time and self diagnosed himself with gallstone/gallbladder problems. He states most recently had episode about 2 weeks ago where he had relatively severe pain in her right upper quadrant after eating a particularly fatty meal that lasted for about 3 hours. States since then he has been watching his diet. Last night he had [employer] (a burrito and chalupa) around 6 PM and then [id number] PM had a cold cut sandwich and glass of iced tea. States that around 1:30 AMhe started to have pain in his upper abdomen area that is more in the middle butgoes across his whole upper abdomen. He denies any radiation to his back or chest. Has associated nausea. States the pain is not as sharp as has been before but is more dull in nature. Took 2 Tums around 6 AM with no significant relief. Total Bilirubin 1.60 H, Direct Bilirubin 0.73 H, AST 525 H, ALT 370 H, Alkaline Phosphatase 64 PFSH Medical History GERD (gastroesophageal reflux disease) Medical History no medical history Allergy/AdvReac Type Severity Reaction Status Date / Time No Known Allergies Allergy Verified 03/16/25 13:09 Social History Smoking Status: Never smoker ROS Constitutional Constitutional: Denies fatigue, fever(s), poor appetite, weight gain or weight loss Gastrointestinal Gastrointestinal: Denies belching, bloating, change in bowel habits, change in stool character, chewing difficulty, coffee ground emesis, constipation, cramping, diarrhea, dyspepsia, dysphagia, earlysatiety, excessive flatus, fecalincontinence, heartburn, hematemesis, hematochezia, hemorrhoids, loose stools, melena, nausea, odynophagia, rectal bleeding, tenesmus, vomiting or weight changes Physical Exam Const alert, oriented x3, no apparent distress and healthy appearing General Appearance: cooperative GI normal to inspection, nondistended, normoactive bowel sounds, soft to palpation,non-tender and non-distended Percussion: normal to percussion Rectal Exam: deferred Lab / Micro Data 03/16/25 09:54 03/16/25 09:54 Labs: Laboratory Results - last 24 hr 03/16/25 09:54: WBC 9.0, RBC 5.93, Hgb 17.0 H, Hct 48.0, MCV 80.9, MCH 28.7, MCHC 35.4, RDW Std Deviation 37.0, RDW Coeff of Ghulam 12.7, Plt Count 237, MPV 10.6, Immature Gran % (Auto) 0.400, Neut % (Auto) 75.9 H, Lymph % (Auto) 17.5 L,Stanly % (Auto) 4.8, Eos % (Auto) 1.0, Baso % (Auto) 0.4, Absolute Neuts (auto) 6.8, Absolute Lymphs (auto) 1.58, Nucleated RBC % 0, PT 13.3, INR 1.0, Sodium 138, Potassium 4.2, Chloride 104, Carbon Dioxide 20.3 L, Anion Gap 14, BUN 13, Creatinine 1.02, Estim Creat Clear Calc 102.77, Est GFR (MDRD) Non-Af 90, BUN/Creatinine Ratio 13.1, Glucose 118 H, Calcium 10.4, Total Bilirubin 1.60 H, Direct Bilirubin 0.73 H, AST 525 H, ALT 370 H, Alkaline Phosphatase 64, Total Protein 7.5, Albumin 4.7, Globulin 2.9, Albumin/Globulin Ratio 1.6, Lipase 50 03/16/25 10:37: Urine Color Yellow, Urine Clarity Sl. Cloudy, Urine pH 6.0, Ur Specific [place] 1.010, Urine Protein Negative, Urine Glucose (UA) Normal, UrineKetones Negative, Urine Occult Blood 10 H, Urine Nitrite Negative, Urine Bilirubin Negative, Urine Urobilinogen Normal, Ur Leukocyte Esterase Negative, Urine RBC 0 SEEN, Urine WBC 0 SEEN, Ur Squamous Epith Cells 0 SEEN, Urine Bacteria 0 SEEN, Urine Mucus 0 SEEN Imaging Radiology Impression Gallbladder Ultrasound 03/16/25 10:30 IMPRESSION: 1. Enlarged hyperechoic liver, suggesting hepatic steatosis, although other diffuse liver diseases can have this appearance. 2. Hypoechoic lesion in the right liver. A follow-up liver protocol CT or MRI is recommended to further evaluate. 3. Cholelithiasis without signs of acute cholecystitis. 4. Findings suggesting gallbladder adenomyomatosis. 5. Distended common bile duct, without an obstructing lesion seen. Reading Location: [id number] Abdomen/Pelvis CT 03/16/25 12:05 IMPRESSION: Fatty liver. Well-defined lesion right lobe of liver favor focal nodular hyperplasia. Follow-up MR of the abdomen with Eovist in 4-6 months to confirm stability possibly helpful. Reading Location: [id number] Assessment & Plan Assessment/Plan (1) Cholelithiasis with acute on chronic cholecystitis: PLAN: Plan 49-year-old gentleman came to ED with right upper and epigastric abdominal pain since 1:30 AM todaywith nausea. Acute on chronic GB colic with cholelithiasis with suspicion of choledocholithiasis: . RUQ sonogramshows cholelithiasis without signs of acutecholecystitis. 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 GB reported normal in size with multiple stones, wall thickness 1.6 cm with echogenic intraluminal foci present, travel artifact suggesting of GB adenomyomatosis. Patient will undergo ERCP. He was explained alternatives, risk and benefits include # of bleeding, fracture, sepsis, perforation, need for surgery . He will have an ASA of 3. Suspected Acute liver injury from cholelithiasis/and suspected choledocholithiasis: No previous labto compare. Total bili 1.6, TB 0.73 AST 525, ALT 370, ALP normal. Lipase 50. Charges/Coding Visit Charges Inpatient E&M: 18310 Init Hosp L3 03/16/25 1540 Cosigner Signature (if applicable): CC: No Primary Care Physician~ Signed [facility]09-26-2025 Evaluation note* Diagnosis Onset Date Resolution Status Admit Date Cholelithiasis with acute on chronic cholecystitis acute March 16, 2025 12:53pm [facility] Work Phone: [phone]) [phone] Consult note [facility] Medical Records Department [address] [place] [address] Pre-Anesthesia Evaluation 03/16/25 1433 MR#: [id number] Acct: [id number] Name: ALONDRA ARITA Rep #:[id number] : 1975 49 From: Armando White PCP: Care Physician,No Primary Status :ADM IN Y Race: C Location: [place] [id number] -[id number] ASA Classification* ASA Classification ASA Classification: 1 and E Assessment & Plan Anesthesia* Anesthesia Assessment Anesthesia Assessment: Discussed sedation and/or anesthesia options, risks, benefits, and alternatives with patient/parents/legal guardian/POA. Questions invited. The patient/parents/legal guardian/POA seems to understand and agrees to proceedwith anesthesia plan. Reviewed the physical assessment, medical history, allergy history and patient home medications list prior to surgery/procedure/anesthetic and documented any changes. Performed airway and anesthesia risk assessments. Anesthesia Type Anesthesia Type: General and MAC History Source History Obtained from:: Patient and Chart Anesthesia Focused Assessment* Temperature: 98 F Pulse Rate: 72 Blood Pressure: 146/98 Respiratory Rate: 18 Pulse Ox: 97 Oxygen Delivery Method: Room Air Airway Assessment Mouth opens: >3 cm Mallampati Score: II Teeth Condition: Intact Neck Range of motion (ROM): Full ROM Labs Anesthesia Preop lab: CBC WBC, (4.4-11.0) 9.0 K/mm3 Today, 09:54 RBC, (4.6-6.2) 5.93 M/mm3 Today, 09:54 Hgb, (13.0-16.5) 17.0 g/dL H Today, 09:54 Hct, (40-54) 48.0 % Today, 09:54 Plt Count, (150-450) 237 K/mm3 Today, 09:54 CHEMISTRY Potassium, (3.3-5.1) 4.2 mmol/L Today, 09:54 Sodium, (133-145) 138 mmol/L Today, 09:54 BUN, (4-19) 13 mg/dL Today, 09:54 Creatinine, (0.70-1.20) 1.02 mg/dL Today, 09:54 Glucose, (70-99) 118 mg/dL H Today, 09:54 COAG PT, (11.7-14.9) 13.3 SECONDS Today, 09:54 Pre-Assessment Diagnosis/Proposed Procedure Planned Operative Procedure(s): ERCP Anesthesia History Anesthesia History - garnetter: Anesthesia History - garnetter Hx Hospitalization Any Problems With Anesthesia No 03/16/25 13:51 Cholinesterase deficiency No 03/16/25 13:51 You/Your Family Experience No 03/16/25 13:51 fever (hyperthermia) with Relationship Recent Exposure to Contagious No 03/16/25 13:51 Disease Does patient have nerve No 03/16/25 13:51 stimulator Patient instructed to have No 03/16/25 13:51 device shut off --Does patient have Pacemaker or ICD? When Was Last Pacemaker Check QUESTION #4 FULL TEXT: You/Your Family Experience fever (hyperthermia) with Anesthesia Last Oral Intake Last Oral intake: Last Oral Intake NPO since Meds taken in AM with sips of water? Meds patient instructed to take am of surgery PONV PONV - garnetter: PONV - garnetter Female HX of Motion Sickness HX of N/V After Surgery Non-Smoker Duration of Surgery greater than 60 minutes Number of Risk Factors PONV Score Height & Weight Height & Weight: Anesthesia: Height & Weight Height 6 ft 8 in 03/16/25 13:04 Weight: 106.141 kg 03/16/25 13:04 Body Mass Index (BMI) 25.7 03/16/25 13:04 Respiratory Assessment Respiratory Assessment - garnetter: Respiratory Tract Infection Hx - garnetter Hx Respiratory Tract Infection No 03/16/25 13:51 STOP Sleep Apnea STOP Sleep Apnea - garnetter: STOP Sleep Apnea - garnetter Hx Hypertension No 03/16/25 13:53 Hx Sleep Apnea No 03/16/25 13:04 CPAP BIPAP Do you snore loudly (louder Yes 03/16/25 13:04 than talking or can be heard Do you often feel tired/ No 03/16/25 13:04 fatigued/ sleepy during daytime? Has anyone observed you stop No 03/16/25 13:04 breathing during sleep? STOP Results Negative 03/16/25 13:04 QUESTION #5 FULL TEXT : Do you snore loudly (louder than talking or can be heard through closeddoors)? 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 Specify any problems Hx of Preganancy in last 3 N/A 03/16/25 13:04 Months Nurse Filling Out Transfusion TWOLF 03/16/25 13:04 & Questions: Date: 03/16/25 03/16/25 13:04 Time: 13:06 03/16/25 13:04 Patient unable to answer at this time (ie. confused, unrespo /Reproduction History /Reproductive History - garnetter: /Reproductive Hx- garnetter Hx Now No 03/16/25 13:51 Gestational Age (in weeks): EDC: Hx Hx Para Hx Section SAB No 03/16/25 13:51 Active Medications Active Medications: Current Medications Generic Name Dose Route Start Last Admin Trade Name Freq PRN Reason Stop Dose Admin Acetaminophen 650 mg 03/16/25 13:32 Acetaminophen 325 Mg Tablet PO Q6H PRN PRN Pain 1-10 Or Fever>100.7 Enoxaparin Sodium 40 mg 03/16/25 13:32 03/16/25 13:56 Enoxaparin 40 Mg/0.4 Ml Syringe SC Not Given Q24H DIA Sodium Chloride 250 mls @ 15 mls/hr 03/16/25 13:09 IV .[id number] PRN Saline Flush Sodium Chloride 250 mls @ 15 mls/hr 03/16/25 13:09 IV .[id number] PRN Additional IVPB Infusion Piperacillin Sod/Tazobactam 50 mls @ 12.5 mls/hr 03/16/25 13:30 03/16/25 13:40 Sod 3.375 gm/ Sodium Chloride IV 12.5 mls/hr Q8 DIA Administration Sodium Chloride 1,000 mls @ 75 mls/hr 03/16/25 13:32 03/16/25 13:43 IV 03/17/25 16:11 75 mls/hr .[id number] DIA Administration Influenza Virus Vacc Trival Recomb 45 mcg 03/17/25 10:00 Flu Vaccine (6mos Up) 45 Mcg/0.5 Ml Syringe IM 03/17/25 10:01 .ONCE ONE Morphine Sulfate 2 - 4 mg 03/16/25 13:32 Morphine 2 Mg/Ml Syringe IV Q3H PRN PRN Pain Score 6-10 Senna/Docusate Sodium 2 tablet 03/16/25 13:32 Senna/Docusate Sodium 1 Tablet PO BID PRN PRN Constipation Sodium Chloride 10 - 40 ml 03/16/25 13:09 0.9% Saline Lock 10 Ml Syringe IV UD PRN SALINE FLUSH PFSH Medical History GERD (gastroesophageal reflux disease) Medical History no medical history Allergy/AdvReac Type Severity Reaction Status Date / Time No Known Allergies Allergy Verified 03/16/25 13:09 Social History Smoking Status: Never smoker Review of Systems (Anesthesia) ROS Narrative System reviewed and no additional complaints, except as documented. 03/16/25 1434 MD> Date _ Armando Gomez MD Cosigner Signature: Date CC: ~ Signed [facility]09-26-2025 History and physical note [facility] Medical Records Department [address] [place] [address] H&P Exam - Hospitalist 03/16/25 1334 MR#: [id number] Acct: [id number] Name: ALONDRA ARITA Rep #:[id number] : 1975 49 From: Jose Guadalupe hWite PCP: Care Physician,No Primary Status :ADM IN Location: [place] [id number] HPI - General General Date of Admission: 03/16/25 Date of Service: 03/16/25 Chief Complaint: Right upper quadrant abdominal pain started at 1:30 AM today. No relief HPI Narrative ALONDRA ARITA, is a 49 M with history of intermittent right upper quadrant painfor 5 years probably GB colic, once every 2 to 4 months came to the ED when he got right upper quadrant pain, gnawing in type , long-lasting did not get bettersince 1:30 AM today. Patient stated previous episode, used to get better in a half an hour but this time it was not getting better. He said he never had beenevaluated by previous episodes of abdominal pain continues to get better with Motrin. No fever, nausea but no vomiting. Pain is more about her right upper and epigastric region ,localized with no radiation. In ED, right upper quadrant shows cholelithiasis, CBD dilatation, liver lesion, described in assessment plan. PENDING SALE TO [facility] Medical History GERD (gastroesophageal reflux disease) Medical History no medical history Allergy/AdvReac Type Severity Reaction Status Date / Time No Known Allergies Allergy Verified 03/16/25 13:09 Social History Smoking Status: Never smoker ROS ROS Narrative Constitutional: Reports fatigue and weakness. No fever. HEENT: Reports systems reviewed and no addt'l complaints, except as documented Respiratory/Chest: No smoking. No acute shortness of breath or respiratory distress or wheezing. CVS: No chest pain pressure tightness. Denies chronic cardiac disease Gastrointestinal: Rest as described in HPI. Bowel movements are normal. Deniescoffee ground emesis,hematemesis or vomiting Genitourinary: Denies burning urination or new urinary tract symptoms Musculoskeletal: Denies acute joint pain or limited range of motion. No acute injury Neurologic: Denies seizure-like symptoms. skin: No ulcer. No rash Endocrinology: Reports systems reviewed and no addt'l complaints, except as documented Hematologic/Lymphatic: Reports systems reviewed and no addt'l complaints, exceptas documented Rest 14 ROS are negative except as mentioned in HPI Vital Signs Vital Signs Vital Signs: 03/16/25 09:32 03/16/25 11:32 03/16/25 12:30 Temperature 97.2 F L 98.7 F Temperature Source Temporal Pulse Rate 100 75 68 Respiratory Rate 14 18 18 Respiratory Effort Respiratory Depth Respiratory Pattern Blood Pressure 153/88 H 113/73 121/78 H Blood Pressure Mean 109 86 92 Blood Pressure Source Blood Pressure Position Blood Pressure Location Pulse Ox 99 97 98 Oxygen Delivery Method Room Air Room Air 03/16/25 13:03 03/16/25 13:12 Temperature 98 F Temperature Source Oral Pulse Rate 72 Respiratory Rate 18 Respiratory Effort Normal Respiratory Depth Normal Respiratory Pattern Normal Blood Pressure 146/98 H Blood Pressure Mean 114 Blood Pressure Source Monitor Blood Pressure Position Sitting Blood Pressure Location Left Forearm Pulse Ox 97 Oxygen Delivery Method Room Air Room Air Weight Weight: 234 lb Body Mass Index (BMI) 25.7 Physical Exam Narrative General: Alert, Oriented x3, Cooperative. BMI 25.7 kg/m? HEENT: Atraumatic, PERRLA, EOMI, Normocephalic. Oral: Oral mucosa dry. No Gingival or Mucosal Lesions/ Ulcerations Neck: Supple, No JVD, Negative Carotid Bruits Chest wall/Lungs: Air entry equal in bilateral lung bases. No crepitation/rhonchi Cardiovascular: Regular rate and rhythm, Normal S1,S2, No M/G/R Abdomen: Bowel Sounds sluggish, Soft, mild tenderness right upper quadrant and epigastric region. No distention : No dysuria. No renal angle tenderness. No suprapubic tenderness. Extremities: No edema, Capillary Refill Less than 3 Seconds Skin: No rashes, No breakdown Musculoskeletal: No Tenderness to Palpation of Joints or Extremities Neurological: Cranial nerves II-XII grossly intact, DTR 2+/4. No acute focal neurological deficit. Psych/Mental Status: Normal Affect, Appropriate. Results Lab / Micro Data 03/16/25 09:54 03/16/25 09:54 Labs: Laboratory Results - last 24 hr 03/16/25 09:54: WBC 9.0, RBC 5.93, Hgb 17.0 H, Hct 48.0, MCV 80.9, MCH 28.7, MCHC 35.4, RDW Std Deviation 37.0, RDW Coeff of Ghulam 12.7, Plt Count 237, MPV 10.6, Immature Gran % (Auto) 0.400, Neut % (Auto) 75.9 H, Lymph % (Auto) 17.5 L,Stanly % (Auto) 4.8, Eos % (Auto) 1.0, Baso % (Auto) 0.4, Absolute Neuts (auto) 6.8, Absolute Lymphs (auto) 1.58, Nucleated RBC % 0, Sodium 138, Potassium 4.2, Chloride 104, Carbon Dioxide 20.3 L, Anion Gap 14, BUN 13, Creatinine 1.02, Estim Creat Clear Calc 102.77, Est GFR (MDRD) Non-Af 90, BUN/Creatinine Ratio 13.1, Glucose 118 H, Calcium 10.4, Total Bilirubin 1.60 H, Direct Bilirubin 0.73H, AST 525 H, ALT 370 H, Alkaline Phosphatase 64, Total Protein 7.5, Albumin 4.7, Globulin 2.9, Albumin/Globulin Ratio 1.6, Lipase 50 03/16/25 10:37: Urine Color Yellow, Urine Clarity Sl. Cloudy, Urine pH 6.0, Ur Specific [place] 1.010, Urine Protein Negative, Urine Glucose (UA) Normal, UrineKetones Negative, Urine Occult Blood 10 H, Urine Nitrite Negative, Urine Bilirubin Negative, Urine Urobilinogen Normal, Ur Leukocyte Esterase Negative, Urine RBC 0 SEEN, Urine WBC 0 SEEN, Ur Squamous Epith Cells 0 SEEN, Urine Bacteria 0 SEEN, Urine Mucus 0 SEEN Imaging Radiology Impression Gallbladder Ultrasound 03/16/25 10:30 IMPRESSION: 1. Enlarged hyperechoic liver, suggesting hepatic steatosis, although other diffuse liver diseases can have this appearance. 2. Hypoechoic lesion in the right liver. A follow-up liver protocol CT or MRI is recommended to further evaluate. 3. Cholelithiasis without signs of acute cholecystitis. 4. Findings suggesting gallbladder adenomyomatosis. 5. Distended common bile duct, without an obstructing lesion seen. Reading Location: [id number] Assessment & Plan Assessment/Plan (1) Cholelithiasis with acute on chronic cholecystitis: PLAN: Plan 49-year-old gentleman came to ED with right upper and epigastric abdominal pain since 1:30 AM todaywith nausea. 1. Acute on chronic GB colic with cholelithiasis with suspicion of choledocholithiasis: Patient is being admitted to MedSur floor. RUQ sonogram shows cholelithiasis without signs of acute cholecystitis. 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 GB reported normal in size with multiple stones, wall thickness 1.6 cm with echogenic intraluminal foci present, travel artifact suggesting of GB adenomyomatosis. No pericholecystic fluid. Clinically patientdoes not have fever, leukocytosis therefore suspicion of acute cholecystitis less likely. Dr. Sarah consulted for ERCP. I discussed with vandana Philip and she states she will follow peripherally but will need follow-up in surgery office for interval cholecystectomy as there is a big stone with possible central trapped air as seenon CT scan. 2. Suspected Acute liver injury from cholelithiasis/and suspected choledocholithiasis: No previous lab to compare. Total bili 1.6, TB 0.73 AST 525, ALT 370, ALP normal. Lipase 50. 3. Liver lesion suspected benign lesion focal nodular hyperplasia and diffuse hepatic steatosis/MASLD/MASH: Ultrasound shows hypoechoic lesion in the right liver for which CT triple phase was done. It shows focal lesion right lobe of liver which enhance on the arterial image with partially fills ondelayed images. There is central area with diminished enhancement. Lesion had similar enhancement to remainder of the liver on delayed images. It favors more focal nodular hyperplasia. Liver ultrasound shows enlarged hyperechoic liver suggestive of hepatic steatosis 4. Unknown past medical history but patient denies hypertension or diabetes mellitus. He does not have PCP. Never smoker. Does not drink alcohol. No substance use. 5. DVT prophylaxis, moderate risk on Lovenox 40 mg subcu daily Living will/advanced directive/end of life care: Patient does not have living will or advanced directive. After discussion of benefits/risks procedures involved with full code, DNR CC arrest and DNR CC, the patient opted for full code. Patient does want artificial life support including intubation, tube feed, ventilator and/chest compression, central venous catheter, vasopressor and DC shock if needed Total time spent in [id number] encounter in discussion of advanced directive 17 minutes. Laboratory Results 03/16/25 09:54: WBC 9.0, RBC 5.93, Hgb 17.0 H, Hct 48.0, MCV 80.9, MCH 28.7, MCHC 35.4, RDW Std Deviation 37.0, RDW Coeff of Ghulam 12.7, Plt Count 237, MPV 10.6, Immature Gran % (Auto) 0.400, Neut % (Auto) 75.9 H, Lymph % (Auto) 17.5 L,Stanly % (Auto) 4.8, Eos % (Auto) 1.0, Baso % (Auto) 0.4, Absolute Neuts (auto) 6.8, Absolute Lymphs (auto) 1.58, Nucleated RBC % 0, PT 13.3, INR 1.0, Sodium 138, Potassium 4.2, Chloride 104, Carbon Dioxide 20.3 L, Anion Gap 14, BUN 13, Creatinine 1.02, Estim Creat Clear Calc 102.77, Est GFR (MDRD) Non-Af 90, BUN/Creatinine Ratio 13.1, Glucose 118 H, Calcium 10.4, Total Bilirubin 1.60 H, Direct Bilirubin 0.73 H, AST 525 H, ALT 370 H, Alkaline Phosphatase 64, Total Protein 7.5, Albumin 4.7, Globulin 2.9, Albumin/Globulin Ratio 1.6, Lipase 50 03/16/25 10:37: Urine Color Yellow, Urine Clarity Sl. Cloudy, Urine pH 6.0, Ur Specific [place] 1.010, Urine Protein Negative, Urine Glucose (UA) Normal, UrineKetones Negative, Urine Occult Blood 10 H, Urine Nitrite Negative, Urine Bilirubin Negative, Urine Urobilinogen Normal, Ur Leukocyte Esterase Negative, Urine RBC 0 SEEN, Urine WBC 0 SEEN, Ur Squamous Epith Cells 0 SEEN, Urine Bacteria 0 SEEN, Urine Mucus 0 SEEN Clinical Impression(s) from Imaging Studies Gallbladder Ultrasound 03/16/25 10:30 IMPRESSION: 1. Enlarged hyperechoic liver, suggesting hepatic steatosis, although other diffuse liver diseases can have this appearance. 2. Hypoechoic lesion in the right liver. A follow-up liver protocol CT or MRI is recommended to further evaluate. 3. Cholelithiasis without signs of acute cholecystitis. 4. Findings suggesting gallbladder adenomyomatosis. 5. Distended common bile duct, without an obstructing lesion seen. Abdomen/Pelvis CT 03/16/25 12:05 IMPRESSION: Fatty liver. Well-defined lesion right lobe of liver favor focal nodular hyperplasia. Follow-up MR of the abdomen with Eovist in 4-6 months to confirm stability possibly helpful. Reading Location: [id number] Charges/Coding Visit Charges Inpatient E&M: 12351 Init Hosp L3 Procedures Hospitalists Procedures: 96269 Advncd Care Plan 30 Min 03/16/25 1414 Cosigner Signature (if applicable): CC: Dr. Jose Guadalupe Puckett MD; Dr. Abbie Philip MD; No Primary Care Physician;Yevgeniy Keara, DO~ Signed [facility]09-26-2025 Radiology Diagnostic study note [facility] Imaging Services [address] [place] [address] CT Abd/Pelvis W/WO Contrast MR#: [id number] Acct: [id number] Name: ALONDRA ARITA Rep #: [id number] : 1975 M 49 From: Rizwan Ortega MD PCP: Care Physician,No Primary Status: ADM IN Study:CT Abd/Pelvis W/WO Contrast Date of Exa m: 03/16/25 Exam# [id number] Ordering Dr: Gillian Puckett MD PROCEDURE: CT ABD/PELVIS W/WO CONTRAST 03/16/2025 REASON FOR EXAM: LIVER LESION ABOUT 4CM IN LIVER US TECHNIQUE: Procedure Code: [id number] Modality: CT Procedure: CT ABD/PELVIS W/WO CONTRAST Coronal and Sagittal reconstruction series were provided. CONTRAST: Isovue 370 VOLUME: 90 mL One or more dose reduction techniques were used (e.g., Automated exposure control, adjustment of the mA and/or kV according to patient size, use of iterative reconstruction technique. RADIATION DOSE SUMMARY: CTDlvol: 100 mGy DLP: 3192 mGycm COMPARISON: Recent ultrasound. FINDINGS: Lung bases: Mild dependent atelectasis ABDOMEN Liver: Mild diffuse fatty infiltration of the liver. Focal lesion in the right lobe of liver which does enhance vividly on the arterial images and partially fills in on delayed images. This has a central area with diminished enhancement. This lesion has similar enhancement toremainder of the liver on delayed images. No other lesions. Biliary system: Negative. Negative for intrahepatic or extrahepatic ductal dilatation. Gallbladder: Contains numerous stones. Negative for cholecystitis. Spleen: Negative. Pancreas: Negative. Adrenals: Negative. Kidneys: Negative. Negative for kidney stones, cysts or masses. Bowel: Diverticulosis. Negative for small or large-bowel obstruction. Appendix: Negative. Vasculature: Negative for atherosclerotic vascular calcifications of the abdominal aorta and its branches. Peritoneum / Retroperitoneum: Negative. Bones and Soft Tissues: Age appropriate degenerative changes of the lumbar spine hips and pelvis. Pelvis: Prostate negative. Soft tissue pelvis negative. No inguinal or iliac adenopathy. CT/CT Abd/Pelvis W/WO Contrast IMPRESSION: Fatty liver. Well-defined lesion right lobe of liver favor focal nodular hyperplasia. Follow-up MR of the abdomen with Eovist in 4-6 months to confirm stability possibly helpful. Reading Location: [id number] CC: Dr. Jose Guadalupe Puckett MD; No Primary Care Physician ~ Clam Shovel Operator: Signed [facility]09-26-2025 Radiology Diagnostic study note [facility] Imaging Services [address], [place] [address] Gallbladder MR#: [id number] Acct: [id number] Name: ALONDRA ARITA Rep #: [id number] : 1975 M 49 From: Pippa Early MD PCP: Care Physician,No Primary Status: REG ER Study:Gallbladder Date of Exam: 03/16/25 Exam# [id number] Ordering Dr: Amelia Bear DO PROCEDURE: GALLBLADDER 03/16/2025 REASON FOR EXAM: RUQ PAIN TECHNIQUE: Procedure Code: USGB Modality: US Procedure: GALLBLADDER. Real-time ultrasound of the right upper quadrant with image documentation. COMPARISON: None. FINDINGS: LIVER ECHOGENICITY: Diffuse increase in hepatic parenchymal echogenicity. SIZE: Enlarged measuring 17.5 cm in length. CONTOUR: Smooth. MASS: Hypoechoic 3.9 x 3.1 x 3.7 cm lesion in the right lobe with internal vascularity. PORTAL VEIN: Normal direction hepatopetal portal venous flow. GALLBLADDER SIZE: Normal. STONES: Multiple. SLUDGE: None. WALL THICKNESS: Normal measuring 1.6 mm. Echogenic intramural foci producing comet tail reverberation artifact, suggest gallbladder adenomyomatosis. PERICHOLECYSTIC FLUID: None. SONOGRAPHIC FLORES'S SIGN: Negative. BILE DUCTS: Distended CBD measuring 7.0 mm in diameter. PANCREAS: Unremarkable as visualized. The distal pancreas is obscured by overlying bowel gas. RIGHT KIDNEY: Normal size and echogenicity with a length of 11.6 cm. No hydronephrosis, nephrolithiasis, cyst or mass seen. ASCITES/EFFUSIONS: None. OTHER: None. US/Gallbladder IMPRESSION: 1. Enlarged hyperechoic liver, suggesting hepatic steatosis, although other diffuse liver diseases can have this appearance. 2. Hypoechoic lesion in the right liver. A follow-up liver protocol CT or MRI is recommended to further evaluate. 3. Cholelithiasis without signs of acute cholecystitis. 4. Findings suggesting gallbladder adenomyomatosis. 5. Distended common bile duct, without an obstructing lesion seen. Reading Location: [facility] CC: Dr. Lucretia Bear, DO; No Primary Care Physician ~ Clam Shovel Operator: [facility] Armando Gomez [facility] Note Date/Time March 16, 2025 2:34pm [facility] Medical Records Department [address] [place] [address] Pre-Anesthesia Evaluation 03/16/25 1433 MR#: [id number] Acct: [id number] Name: ALONDRA ARITA Rep #:[id number] : 1975 49 From: Armando White PCP: Care Physician,No Primary Status :ADM IN Race: C [place] [facility] MS315 -1 ASA Classification* ASA Classification ASA Classification: 1 and E Assessment & Plan Anesthesia* Anesthesia Assessment Anesthesia Assessment: Discussed sedation and/or anesthesia options, risks, benefits, and alternatives with patient/parents/legal guardian/POA. Questions invited. The patient/parents/legal guardian/POA seems to understand and agrees to proceedwith anesthesia plan. Reviewed the physical assessment, medical history, allergy history and patient home medications list prior to surgery/procedure/anesthetic and documented any changes. Performed airway and anesthesia risk assessments. Anesthesia Type Anesthesia Type: General and MAC History Source History Obtained from:: Patient and Chart Anesthesia Focused Assessment* Temperature: 98 F Pulse Rate: 72 Blood Pressure: 146/98 Respiratory Rate: 18 Pulse Ox: 97 Oxygen Delivery Method: Room Air Airway Assessment Mouth opens: >3 cm Mallampati Score: II Teeth Condition: Intact Neck Range of motion (ROM): Full ROM Labs Anesthesia Preop lab: CBC WBC, (4.4-11.0) 9.0 K/mm3 Today, 09:54 RBC, (4.6-6.2) 5.93 M/mm3 Today, 09:54 Hgb, (13.0-16.5) 17.0 g/dL H Today, 09:54 Hct, (40-54) 48.0 % Today, 09:54 Plt Count, (150-450) 237 K/mm3 Today, 09:54 CHEMISTRY Potassium, (3.3-5.1) 4.2 mmol/L Today, 09:54 Sodium, (133-145) 138 mmol/L Today, 09:54 BUN, (4-19) 13 mg/dL Today, 09:54 Creatinine, (0.70-1.20) 1.02 mg/dL Today, 09:54 Glucose, (70-99) 118 mg/dL H Today, 09:54 COAG PT, (11.7-14.9) 13.3 SECONDS Today, 09:54 Pre-Assessment Diagnosis/Proposed Procedure Planned Operative Procedure(s): ERCP Anesthesia History Anesthesia History - garnetter: Anesthesia History - garnetter Hx Hospitalization Any Problems With Anesthesia No 03/16/25 13:51 Cholinesterase deficiency No 03/16/25 13:51 You/Your Family Experience No 03/16/25 13:51 fever (hyperthermia) with Relationship Recent Exposure to Contagious No 03/16/25 13:51 Disease Does patient have nerve No 03/16/25 13:51 stimulator Patient instructed to have No 03/16/25 13:51 device shut off --Does patient have Pacemaker or ICD? When Was Last Pacemaker Check QUESTION #4 FULL TEXT: You/Your Family Experience fever (hyperthermia) with Anesthesia Last Oral Intake Last Oral intake: Last Oral Intake NPO since Meds taken in AM with sips of water? Meds patient instructed to take am of surgery PONV PONV - garnetter: PONV - garnetter Female HX of Motion Sickness HX of N/V After Surgery Non-Smoker Duration of Surgery greater than 60 minutes Number of Risk Factors PONV Score Height & Weight Height & Weight: Anesthesia: Height & Weight Height 6 ft 8 in 03/16/25 13:04 Weight: 106.141 kg 03/16/25 13:04 Body Mass Index (BMI) 25.7 03/16/25 13:04 Respiratory Assessment Respiratory Assessment - garnetter: Respiratory Tract Infection Hx - garnetter Hx Respiratory Tract Infection No 03/16/25 13:51 STOP Sleep Apnea STOP Sleep Apnea - garnetter: STOP Sleep Apnea - garnetter Hx Hypertension No 03/16/25 13:53 Hx Sleep Apnea No 03/16/25 13:04 CPAP BIPAP Do you snore loudly (louder Yes 03/16/25 13:04 than talking or can be heard Do you often feel tired/ No 03/16/25 13:04 fatigued/ sleepy during daytime? Has anyone observed you stop No 03/16/25 13:04 breathing during sleep? STOP Results Negative 03/16/25 13:04 QUESTION #5 FULL TEXT : Do you snore loudly (louder than talking or can be heard through closed doors)? 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 Specify any problems Hx of Preganancy in last 3 N/A 03/16/25 13:04 Months Nurse Filling Out Transfusion TWOLF 03/16/25 13:04 & Questions: Date: 03/16/25 03/16/25 13:04 Time: 13:06 03/16/25 13:04 Patient unable to answer at this time (ie. confused, unrespo /Reproduction History /Reproductive History - garnetter: /Reproductive Hx- garnetter Hx Now No 03/16/25 13:51 Gestational Age (in weeks): EDC: Hx Hx Para Hx Section SAB No 03/16/25 13:51 Active Medications Active Medications: Current Medications Generic Name Dose Route Start Last Admin Trade Name Freq PRN Reason Stop Dose Admin Acetaminophen 650 mg 03/16/25 13:32 Acetaminophen 325 Mg Tablet PO Q6H PRN PRN Pain 1-10 Or Fever>100.7 Enoxaparin Sodium 40 mg 03/16/25 13:32 03/16/25 13:56 Enoxaparin 40 Mg/0.4 Ml Syringe SC Not Given Q24H DIA Sodium Chloride 250 mls @ 15 mls/hr 03/16/25 13:09 IV .[id number] PRN Saline Flush Sodium Chloride 250 mls @ 15 mls/hr 03/16/25 13:09 IV .[id number] PRN Additional IVPB Infusion Piperacillin Sod/Tazobactam 50 mls @ 12.5 mls/hr 03/16/25 13:30 03/16/25 13:40 Sod 3.375 gm/ Sodium Chloride IV 12.5 mls/hr Q8 DIA Administration Sodium Chloride 1,000 mls @ 75 mls/hr 03/16/25 13:32 03/16/25 13:43 IV 03/17/25 16:11 75 mls/hr .[id number] DIA Administration Influenza Virus Vacc Trival Recomb 45 mcg 03/17/25 10:00 Flu Vaccine 2024-(6mos Up) 45 Mcg/0.5 Ml Syringe IM 03/17/25 10:01 .ONCE ONE Morphine Sulfate 2 - 4 mg 03/16/25 13:32 Morphine 2 Mg/Ml Syringe IV Q3H PRN PRN Pain Score 6-10 Senna/Docusate Sodium 2 tablet 03/16/25 13:32 Senna/Docusate Sodium 1 Tablet PO BID PRN PRN Constipation Sodium Chloride 10 - 40 ml 03/16/25 13:09 0.9% Saline Lock 10 Ml Syringe IV UD PRN SALINE FLUSH PFSH Medical History GERD (gastroesophageal reflux disease) Medical History no medical history Allergy/AdvReac Type Severity Reaction Status Date / Time No Known Allergies Allergy Verified 03/16/25 13:09 Social History Smoking Status: Never smoker Review of Systems (Anesthesia) ROS Narrative System reviewed and no additional complaints, except as documented. 03/16/25 1434 <Electronically signed by Armando Gomez MD> Date _ Armando Gomez MD Cosigner Signature: Date CC: ~ Signed [facility] Work Phone: Consult note Author Yevgeniy Friend [facility] Note Date/Time March 16, 2025 3:40pm [facility] Medical Records Department [address] [place] [address] Consultation - GI 03/16/25 1537 MR#: [id number] Acct: [id number] Name: ALONDRA ARITA Rep #:[id number] : 1975 49 From: Yevgeniy Sarah DO PCP: Care Physician,No Primary Status :ADM IN [place] [facility] [place] GI258-1 HPI Consult Data Date of Consult: 03/16/25 HPI Narrative HPI Narrative: ALONDRA ARITA, is a 49-year-old male with no significant past medical history presenting with worsening upper abdominal pain. States has been having issues with epigastric/right upper quadrant abdominal pain for some time and self diagnosed himself with gallstone/gallbladder problems. He states most recently had episode about 2 weeks ago where he had relatively severe pain in her right upper quadrant after eating a particularly fatty meal that lasted for about 3 hours. States since then he has been watching his diet. Last night he had [employer] (a burrito and chalupa) around 6 PM and then [id number] PM had a cold cut sandwich and glass of iced tea. States that around 1:30 AMhe started to have pain in his upper abdomen area that is more in the middle butgoes across his whole upper abdomen. He denies any radiation to his back or chest. Has associated nausea. States the pain is not as sharp as has been before but is more dull in nature. Took 2 Tums around 6 AM with no significant relief. Total Bilirubin 1.60 H, Direct Bilirubin 0.73 H, AST 525 H, ALT 370 H, Alkaline Phosphatase 64 PFSH Medical History GERD (gastroesophageal reflux disease) Medical History no medical history Allergy/AdvReac Type Severity Reaction Status Date / Time No Known Allergies Allergy Verified 03/16/25 13:09 Social History Smoking Status: Never smoker ROS Constitutional Constitutional: Denies fatigue, fever(s), poor appetite, weight gain or weight loss Gastrointestinal Gastrointestinal: Denies belching, bloating, change in bowel habits, change in stool character, chewing difficulty, coffee ground emesis, constipation, cramping, diarrhea, dyspepsia, dysphagia, early satiety, excessive flatus, fecalincontinence, heartburn, hematemesis, hematochezia, hemorrhoids, loose stools, melena, nausea, odynophagia, rectal bleeding, tenesmus, vomiting or weight changes Physical Exam Const alert, oriented x3, no apparent distress and healthy appearing General Appearance: cooperative GI normal to inspection, nondistended, normoactive bowel sounds, soft to palpation,non-tender and non-distended Percussion: normal to percussion Rectal Exam: deferred Lab / Micro Data 03/16/25 09:54 03/16/25 09:54 Labs: Laboratory Results - last 24 hr 03/16/25 09:54: WBC 9.0, RBC 5.93, Hgb 17.0 H, Hct 48.0, MCV 80.9, MCH 28.7, MCHC 35.4, RDW Std Deviation 37.0, RDW Coeff of Ghulam 12.7, Plt Count 237, MPV 10.6, Immature Gran % (Auto) 0.400, Neut % (Auto) 75.9 H, Lymph % (Auto) 17.5 L,Stanly % (Auto) 4.8, Eos % (Auto) 1.0, Baso % (Auto) 0.4, Absolute Neuts (auto) 6.8, Absolute Lymphs (auto) 1.58, Nucleated RBC % 0, PT 13.3, INR 1.0, Sodium 138, Potassium 4.2, Chloride 104, Carbon Dioxide 20.3 L, Anion Gap 14, BUN 13, Creatinine 1.02, Estim Creat Clear Calc 102.77, Est GFR (MDRD) Non-Af 90, BUN/Creatinine Ratio 13.1, Glucose 118 H, Calcium 10.4, Total Bilirubin 1.60 H, Direct Bilirubin 0.73 H, AST 525 H, ALT 370 H, Alkaline Phosphatase 64, Total Protein 7.5, Albumin 4.7, Globulin 2.9, Albumin/Globulin Ratio 1.6, Lipase 50 03/16/25 10:37: Urine Color Yellow, Urine Clarity Sl. Cloudy, Urine pH 6.0, Ur Specific [place] 1.010, Urine Protein Negative, Urine Glucose (UA) Normal, UrineKetones Negative, Urine Occult Blood 10 H, Urine Nitrite Negative, Urine Bilirubin Negative, Urine Urobilinogen Normal, Ur Leukocyte Esterase Negative, Urine RBC 0 SEEN, Urine WBC 0 SEEN, Ur Squamous Epith Cells 0 SEEN, Urine Bacteria 0 SEEN, Urine Mucus 0 SEEN Imaging Radiology Impression Gallbladder Ultrasound 03/16/25 10:30 IMPRESSION: 1. Enlarged hyperechoic liver, suggesting hepatic steatosis, although other diffuse liver diseases can have this appearance. 2. Hypoechoic lesion in the right liver. A follow-up liver protocol CT or MRI is recommended to further evaluate. 3. Cholelithiasis without signs of acute cholecystitis. 4. Findings suggesting gallbladder adenomyomatosis. 5. Distended common bile duct, without an obstructing lesion seen. Reading Location: [id number] Abdomen/Pelvis CT 03/16/25 12:05 IMPRESSION: Fatty liver. Well-defined lesion right lobe of liver favor focal nodular hyperplasia. Follow-up MR of the abdomen with Eovist in 4-6 months to confirm stability possibly helpful. Reading Location: [id number] Assessment & Plan Assessment/Plan (1) Cholelithiasis with acute on chronic cholecystitis: PLAN: Plan 49-year-old gentleman came to ED with right upper and epigastric abdominal pain since 1:30 AM today with nausea. Acute on chronic GB colic with cholelithiasis with suspicion of choledocholithiasis: . RUQ sonogram shows cholelithiasis without signs of acutecholecystitis. 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 GB reported normal in size with multiple stones, wall thickness 1.6 cm with echogenic intraluminal foci present, travel artifact suggesting of GB adenomyomatosis. Patient will undergo ERCP. He was explained alternatives, risk and benefits include # of bleeding, fracture, sepsis, perforation, need for surgery . He will have an ASA of 3. Suspected Acute liver injury from cholelithiasis/and suspected choledocholithiasis: No previous lab to compare. Total bili 1.6, TB 0.73 AST 525, ALT 370, ALP normal. Lipase 50. Charges/Coding Visit Charges Inpatient E&M: 10696 Init Hosp L3 03/16/25 1540 <Electronically signed by Yevgeniy Sarah DO> Cosigner Signature (if applicable): CC: No Primary Care Physician~ Signed [facility] Work Phone: Consult note Author Armando Gomez [facility] Note Date/Time March 18, 2025 12:45pm [facility] Medical Records Department [address] [place] [address] Anesthesia Postop Eval II 03/16/251654 MR#: [id number] Acct: [id number] Name: ALONDRA ARITA Rep #:[id number] : 1975 49 From: Armando White PCP: Care Physician,No Primary Status :ADM IN Y Race: C Location: [place] [address] Anesthesia Postop Eval I Sum Anesthesia Postop Eval I Summary Anesthesia Postop Eval I Summary: Anesthesia Postop Eval I: Assessment Summary Airway patent Spontaneous unlabored respirations Mental status nausea Vomiting Anesthesia Postop Eval I: Fluid Summary Crystalloid volume administer (ml) Colloids volume administered ( ml) Blood Product volume administered (ml) Total IV fluid infused Anesthesia Postop Eval I: Summary Notes Anesthesia Complication Anesthesia Complication Comment: Post-operative progress note Anesthesia: Postop Eval II Evaluation Mental status: Awake and Calm Pain Level: 1 nausea: No Vomiting: No Complications Anesthesia Complication: No 03/16/251654 <Electronically signed by Armando Gomez MD> Date _ Armando Galaviz Signature: Date CC: ~ Signed [facility] Work Phone: Discharge summary Author Lucretia Bear [facility] Note Date/Time March 17, 2025 3:21pm [facility] Medical Records Department [address] [place] [address] Emergency Department Summary 03/16/25 MR#: [id number] Acct: [id number] Name: ALONDRA ARITA Rep #:[id number] : 1975 49 From: Lucretia Albert PCP: Care Physician,No Primary Status :ADM IN Location[place] [facility] [place] QW712-2 HPI HPI - GI History of Present Illness Chief Complaint: Abd Pain Informant: patient Narrative Narrative: Patient is a 49-year-old male with no significant past medical history presenting with worsening upper abdominal pain. has been having issues with epigastric/right upper quadrant abdominal pain for some time and self diagnosed himself with gallstone/gallbladder problems. States most recently hadepisode about 2 weeks ago where he had relatively severe pain in her right upperquadrant after eating a particularly fatty meal that lasted for about 3 hours. States since then he has been watching his diet. Last night he had [employer] (aburrito and chalupa) around 6 PM and then around 10 PM had a cold cut sandwich and glass of iced tea. States that around 1:30 AM he started to have pain in his upper abdomen area that is more in the middle but goes across his whole upper abdomen. Denies any radiation to his back or chest. Has associated nausea. States the pain is not as sharp as has been before but is more dull in nature. Took 2 Tums around 6 AM with no significant relief. States he has not had anything to eat or drink today. Notes the pain is better if he hunches overand worse if he sits up straight. Notes he has been taking antacids more frequently lately. Denies any black or blood in his stool. [place] any change in his bowel movements. Denies a history of any abdominal surgeries. Thinks when he is a teenager he maybe had some gastritis but does not recall the details. Does not have any known history of stomach ulcers. No fevers or chills reported. No other complaints or concerns at this time [facility] Medical History GERD (gastroesophageal reflux disease) Medical History no medical history Allergy/AdvReac Type Severity Reaction Status Date / Time No Known Allergies Allergy Verified 03/16/25 13:09 Social History Smoking Status: Never smoker ROS ROS ED Constitutional Constitutional ED: Denies chills or fever(s) Respiratory/Chest Respiratory/Chest: Denies cough Gastrointestinal Gastrointestinal: Reports abdominal pain and nausea; Denies constipation, diarrhea, melena or vomiting Genitourinary Genitourinary ED: Denies dysuria or hematuria Musculoskeletal Musculoskeletal: Denies arthralgias, back pain or myalgias Integumentary Denies rash Neurologic Neurologic: Denies weakness EXAM Physical Exam Const Vital Signs: 03/16/25 09:32 03/16/25 11:32 03/16/25 12:30 Temperature 97.2 F L 98.7 F Temperature Source Temporal Pulse Rate 100 75 68 Respiratory Rate 14 18 18 Blood Pressure 153/88 H 113/73 121/78 H Blood Pressure Mean 109 86 92 Pulse Ox 99 97 98 Oxygen Delivery Method Room Air Room Air Positive well nourished and well developed General Appearance ED: well developed; Negative for pallor HEENT normocephalic and atraumatic Eyes General Eye ED: Negative for pale conjunctiva or scleral icterus Neck supple and no JVD Resp normal respiratory effort and clear to auscultation bilaterally Cardio regular rate, regular rhythm and no murmurs GI non-distended GI Narrative: Mild epigastric abdominal tenderness, not highly reproduced on exam. Points to his right upper quadrant really as the area of his pain usually. Negative Flores sign. Inspection: Negative for abdominal distention Auscultation: normoactive bowel sounds Palpation: soft Back/Spine no CVA tenderness Extremity full ROM Neuro moves all extremities Sensorium / Orientation: alert Psych mental status grossly normal Skin no wounds General Skin Exam: Negative for jaundice or pallor MDM MDM MDM Narrative Medical decision making narrative: Patient evaluated for upper abdominal pain. Ports that history intermittent episodes of pain concerning for possible biliary colic. Differential also includes choledocholithiasis, acute cholecystitis, pancreatitis as well as gastritis/peptic ulcer disease. Patient's physical exam is relatively benign with a negative Flores sign. CBC coags normal. CMP does show an elevation of his total bilirubin as well as elevation of AST and ALT concerning for possible obstructive process. Direct bilirubin is added which is elevated. Lipase is normal. Urinalysis and is largely normal with negative bilirubin. Right upper quadrant ultrasound does not shows acute cholecystitis but does showsome abnormalities of the liver as well as cholelithiasis and a dilation of the common bile duct. Concern for possible choledocholithiasis. Case is discussed with Dr. Sarah whoagrees that patient benefit from ERCP. Patient will be admitted for this. Is kept NPO. Patient is given Protonix, IV fluids in the emergency room. Does notrequire pain medication in the ER as he states his pain is pretty mild at this time. Case is discussed with hospitalist for admission, Dr. Puckett. Lab Data Attestation: I reviewed the patient's lab results. Labs: Laboratory Results - last 24 hr 03/16/25 03/16/25 09:54 10:37 WBC 9.0 RBC 5.93 Hgb 17.0 H Hct 48.0 MCV 80.9 MCH 28.7 MCHC 35.4 RDW Std Deviation 37.0 RDW Coeff of Ghulam 12.7 Plt Count 237 MPV 10.6 Immature Gran % (Auto) 0.400 Neut % (Auto) 75.9 H Lymph % (Auto) 17.5 L Stanly % (Auto) 4.8 Eos % (Auto) 1.0 Baso % (Auto) 0.4 Absolute Neuts (auto) 6.8 Absolute Lymphs (auto) 1.58 Nucleated RBC % 0 PT 13.3 INR 1.0 Sodium 138 Potassium 4.2 Chloride 104 Carbon Dioxide 20.3 L Anion Gap 14 BUN 13 Creatinine 1.02 Estim Creat Clear Calc 102.77 Est GFR (MDRD) Non-Af 90 BUN/Creatinine Ratio 13.1 Glucose 118 H Calcium 10.4 Total Bilirubin 1.60 H Direct Bilirubin 0.73 H AST 525 H ALT 370 H Alkaline Phosphatase 64 Total Protein 7.5 Albumin 4.7 Globulin 2.9 Albumin/Globulin Ratio 1.6 Lipase 50 Urine Color Yellow Urine Clarity Sl. Cloudy Urine pH 6.0 Ur Specific [place] 1.010 Urine Protein Negative Urine Glucose (UA) Normal Urine Ketones Negative Urine Occult Blood 10 H Urine Nitrite Negative Urine Bilirubin Negative Urine Urobilinogen Normal Ur Leukocyte Esterase Negative Urine RBC 0 SEEN Urine WBC 0 SEEN Ur Squamous Epith Cells 0 SEEN Urine Bacteria 0 SEEN Urine Mucus 0 SEEN Radiography Diagnostic Testing: Clinical Impression(s) from Imaging Studies Gallbladder Ultrasound 03/16/25 10:30 IMPRESSION: 1. Enlarged hyperechoic liver, suggesting hepatic steatosis, although other diffuse liver diseases can have this appearance. 2. Hypoechoic lesion in the right liver. A follow-up liver protocol CT or MRI is recommended to further evaluate. 3. Cholelithiasis without signs of acute cholecystitis. 4. Findings suggesting gallbladder adenomyomatosis. 5. Distended common bile duct, without an obstructing lesion seen. Reading Location: [id number] Abdomen/Pelvis CT 03/16/25 12:05 IMPRESSION: Fatty liver. Well-defined lesion right lobe of liver favor focal nodular hyperplasia. Follow-up MR of the abdomen with Eovist in 4-6 months to confirm stability possibly helpful. Reading Location: [id number] Rhythm Strip Rhythm Strip: Sinus Rhythm Rate: 76 Ectopy: None EKG Initial EKG: Attestation: I personally reviewed and interpreted this EKG as follows: Interpretation: Sinus Rhythm Comments: Normal sinus rhythm rate of 76 bpm with sinus arrhythmia Normal axis Normal intervals Normal ST segments Management Discussion w/another healthcare provider: Hospitalist and Synthetic Department Supervisor Discharge Plan Dx/Rx/DC Orders Clinical Impression: Cholelithiasis with acute on chronic cholecystitis Disposition Disposition: Acute Care Hospital [facility] Discharge Date/Time: 03/16/25 12:44 What to do if you have Problems For any increased pain, shortness of breath, bleeding, nausea or vomiting, chestpain, or any unexpected problems, contact your Primary Care Provider. Call [facility] ([phone]) or report to the closest Emergency Room. Call 911 if necessary. 03/17/25 1521 <Electronically signed by Lucretia Bear DO> Cosigner Signature (if applicable): CC: No Primary Care Physician ~ Signed [facility] Work Phone: Discharge summary Author Jose Guadalupe Puckett [facility] Note Date/Time March 18, 2025 9:40am [facility] Medical Records Department [address] [place] [address] Instructions for Home/Discharge Instructions 03/18/25 0935 MR#: [id number] Acct: [id number] Name: ALONDRA ARITA Rep #:[id number] : 1975 49 From: Jose Guadalupe White PCP: Care Physician,No Primary Status :ADM IN Discharge Instructions DC O2, CPAP, BIPAP needs Home O2 Discharge instructions: No Follow Up Care Test Results: Test results from this visit will be discussed in further detail at your follow- up appointment, if applicable. Discharge Plan Admission Admit Date/Time: 03/16/25 12:53 Attending Provider: Jose Guadalupe Puckett Primary Care Provider: Care Physician,No Primary Consulting Providers: Jose Guadalupe Puckett; Yevgeniy Sarah; Karlee Green; Apolonia Pavon; Shira Alex Instructions Additional Instructions / Restrictions: Advised [id number]-[id number] Tylenol 500 mg to 1000 mg Q6 hourly as needed for fevermore than 102 Fahrenheit and moderate to severe pain respectively. Jrlr-hyh-lrtzxil, probiotic, lactobacillus/acidophilus 1 tablet twice daily for 7 days. Discharge Orders/Prescriptions Prescriptions: New sennosides-docusate sodium [Stimulant Laxative Plus] 8.6-50 mg Tablet 2 tab PO BID PRN PRN (Reason: Constipation) Qty: 0 0RF amoxicillin-pot clavulanate 875-125 mg tablet 1 tab PO BID Qty: 10 0RF Referrals / Follow Up: Yevgeniy Sarah DO [Med Staff - Active Staff, Gastroenterology] - Within 1 Month Abbie Philip MD [Med Staff - Active Staff, General Surgery] - Within 1 Week Care Physician,No Primary [Primary Care Provider, Medical] Disposition Disposition (needs filled in before D/C Order can be placed): Home, Self Care 03/18/25 0940<Electronically signed by Jose Guadalupe Puckett MD>Jose Guadalupe Puckett MD CC: PORSCHE Green; PORSCHE Pavon; Dr. Jose Guadalupe Puckett MD; MERE Mcpherson; No Primary Care Physician; Yevgeniy Friend, DO ~ Signed [facility] Work Phone: Discharge summary Author Jose Guadalupe Puckett [facility] Note Date/Time March 18, 2025 9:46am [facility] Medical Records Department [address] [place] [address] Discharge Summary 03/18/25939 MR#: [id number] Acct: [id number] Name: ALONDRA ARITA Rep #:[id number] : 1975 49 From: Jose Guadalupe White PCP: Care Physician,No Primary Status :ADM IN Location: [place] [address] Providers Date of Admission: 03/16/25 Date of Discharge: 03/18/25 Primary Care Physician: No Primary Care Phys Consultations 03/16/25 13:32 Consult: Gastroenterology Routine Consulting Provider: [facility] Reason for Consult: choledocholithiasis EMERGENT Consult: No MD Notified: Yes Date Notified: 03/16/25 Time Notified: 13:14 Method of Notification: ED Physician Initiated Reason For Visit: GB COLIC PAIN Diagnosis Discharge Diagnosis (1) Cholelithiasis with acute on chronic cholecystitis: Status: Acute Code(s): K80.12 - Calculus of gallbladder with acute and chronic cholecystitis without obstruction Plan 49-year-old gentleman came to ED with right upper and epigastric abdominal pain since 1:30 AM today with nausea. 1. Acute on chronic GB colic with cholelithiasis with suspicion of choledocholithiasis: Patient is being admitted to MedSurg floor. RUQ sonogram shows cholelithiasis without signs of acute cholecystitis. 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 GB reported normal in size with multiple stones, wall thickness 1.6 cm with echogenic intraluminal foci present, comet artifact suggesting of GB adenomyomatosis. No pericholecystic fluid. Clinically patientdoes not have fever, leukocytosis therefore suspicion of acute cholecystitis less likely. Dr. Sarah consulted for ERCP. I discussed with surgeon Dr. Philip and she states she will follow peripherally but will need follow-up in surgery office for interval cholecystectomy as there is a big stone with possible central trapped air as seen on CT scan. 03/17: Discussed with the surgeon. Plan for office follow-up in 2 weeks after discharge. As transaminases are elevated but total bilirubin same probably mildirritation due to ERCP therefore we will keep the patient today. Continue IV antibiotic. Clear liquid, advance as per tolerated to full and soft diet. The patient does not seem to have cholecystitis features either clinically or radiologically. Mild increase in WBC count probably after reactive ERCP. ERCP on 03/16 Impression: - The entire main bile duct was moderately dilated, with a stone causing an obstruction. - Choledocholithiasis was found. Partial removal was accomplished with biliary sphincterotomy; a stent was inserted. - A biliary sphincterotomy was performed. - The biliary tree was swept. - One temporary stent was placed into the common bile duct. 03/18: Abdominal pain/discomfort minimal with some sore throat from ERCP. Able to tolerate full liquid diet advance to soft diet. Follow-up with Dr. Philip in 1 week. Follow-up in GI office/Dr. Leiva in 1 month. Liver chemistry shows improvement in AST and ALT. Total bilirubin 0.85, direct 0.41 normal range ALP 65 normal. Empirically patient discharged on 5 more days of Augmentin to complete a 1 week of antibiotic. Advised OTC Tylenol and probiotic admission discharge instructions. 2. Suspected Acute liver injury from cholelithiasis/and suspected choledocholithiasis: No previous lab to compare. Total bili 1.6, TB 0.73 AST 525, ALT 370, ALP normal. Lipase 50. 03/18: Liver chemistry including TB shows improvement 3. Liver lesion suspected benign lesion focal nodular hyperplasia and diffuse hepatic steatosis/MASLD/MASH: Ultrasound shows hypoechoic lesion in the right liver for which CT triple phase was done. It shows focal lesion right lobe of liver which enhance on the arterial image with partially fills on delayed images. There is central area with diminished enhancement. Lesion had similar enhancement to remainder of the liver on delayed images. It favors more focal nodular hyperplasia. Liver ultrasound shows enlarged hyperechoic liver suggestive of hepatic steatosis 03/17: Focal nodular hyperplasia explained to the patient and his . Benign developmental malformation liver lesion. 03/18 follow-up in GI office after month. 4. Unknown past medical history but patient denies hypertension or diabetes mellitus. He does not have PCP. Never smoker. Does not drink alcohol. No substance use. 03/17: Explained to the patient advised that he needs to establish PCP. 5. DVT prophylaxis, moderate risk on Lovenox 40 mg subcu daily Living will/advanced directive/end of life care: Patient does not have living will or advanced directive. After discussion of benefits/risks procedures involved with full code, DNR CC arrest and DNR CC, the patient opted for full code. Patient does want artificial life support including intubation, tube feed, ventilator and/chest compression, central venous catheter, vasopressor and DC shock if needed Total time spent in ldaa-eu-qvye encounter in discussion of advanced directive 17 minutes. Discharge medication reconciliation done. Discharge follow-up instructions completed. Discharge process discussed with the patient and all questions wereanswered to patient's satisfaction. Follow with PCP in 1 to 2 weeks Total time spent, exact 35 minutes on discharge meds reconciliation, examination, coordination of care with nurses and ancillary staff, review of imaging and blood test and discussion with the patient on follow-up instructions. Laboratory Results 03/16/25 09:54: WBC 9.0, RBC 5.93, Hgb 17.0 H, Hct 48.0, MCV 80.9, MCH 28.7, MCHC 35.4, RDW Std Deviation 37.0, RDW Coeff of Ghulam 12.7, Plt Count 237, MPV 10.6, Immature Gran % (Auto) 0.400, Neut % (Auto) 75.9 H, Lymph % (Auto) 17.5 L,Stanly % (Auto) 4.8, Eos % (Auto) 1.0, Baso % (Auto) 0.4, Absolute Neuts (auto) 6.8, Absolute Lymphs (auto) 1.58, Nucleated RBC % 0, PT 13.3, INR 1.0, Sodium 138, Potassium 4.2, Chloride 104, Carbon Dioxide 20.3 L, Anion Gap 14, BUN 13, Creatinine 1.02, Estim Creat Clear Calc 102.77, Est GFR (MDRD) Non-Af 90, BUN/Creatinine Ratio 13.1, Glucose 118 H, Calcium 10.4, Total Bilirubin 1.60 H, Direct Bilirubin 0.73 H, AST 525 H, ALT 370 H, Alkaline Phosphatase 64, Total Protein 7.5, Albumin 4.7, Globulin 2.9, Albumin/Globulin Ratio 1.6, Lipase 50 03/16/25 10:37: Urine Color Yellow, Urine Clarity Sl. Cloudy, Urine pH 6.0, Ur Specific [place] 1.010, Urine Protein Negative, Urine Glucose (UA) Normal, UrineKetones Negative, Urine Occult Blood 10 H, Urine Nitrite Negative, Urine Bilirubin Negative, Urine Urobilinogen Normal, Ur Leukocyte Esterase Negative, Urine RBC 0 SEEN, Urine WBC 0 SEEN, Ur Squamous Epith Cells 0 SEEN, Urine Bacteria 0 SEEN, Urine Mucus 0 SEEN Laboratory Results 03/16/25 09:54: PT 13.3, INR 1.0, Direct Bilirubin 0.73 H 03/17/25 05:47: WBC 11.5 H, RBC 5.40, Hgb 15.2, Hct 43.5, MCV 80.6, MCH 28.1, MCHC 34.9, RDW Std Deviation 38.0, RDW Coeff of Ghulam 13.2, Plt Count 242, MPV 10.7, Immature Gran % (Auto) 0.400, Neut % (Auto) 83.5 H, Lymph % (Auto) 12.9 L,Stanly % (Auto) 3.1, Eos % (Auto) 0.0, Baso % (Auto) 0.1, Absolute Neuts (auto) 9.6 H, Absolute Lymphs (auto) 1.48, Nucleated RBC % 0, Sodium 138, Potassium 4.0, Chloride 105, Carbon Dioxide 19.5 L, Anion Gap 13, BUN 9, Creatinine 0.92, Estim Creat Clear Calc 130.43, Est GFR (MDRD) Non-Af 101, BUN/Creatinine Ratio 9.9 L, Glucose 125 H, Calcium 9.0, Total Bilirubin 1.56 H, Direct Bilirubin 0.91H, AST 618 H, ALT 865 H, Alkaline Phosphatase 72, Total Protein 6.8, Albumin 4.2, Globulin 2.6 Clinical Impression(s) from Imaging Studies Gallbladder Ultrasound 03/16/25 10:30 IMPRESSION: 1. Enlarged hyperechoic liver, suggesting hepatic steatosis, although other diffuse liver diseases can have this appearance. 2. Hypoechoic lesion in the right liver. A follow-up liver protocol CT or MRI is recommended to further evaluate. 3. Cholelithiasis without signs of acute cholecystitis. 4. Findings suggesting gallbladder adenomyomatosis. 5. Distended common bile duct, without an obstructing lesion seen. Abdomen/Pelvis CT 03/16/25 12:05 IMPRESSION: Fatty liver. Well-defined lesion right lobe of liver favor focal nodular hyperplasia. Follow-up MR of the abdomen with Eovist in 4-6 months to confirm stability possibly helpful. Reading Location: [facility] Medications at Discharge Home Medications amoxicillin 875 mg-potassium clavulanate 125 mg tablet 1 tab PO BID #10 tabs 03/18/25 sennosides 8.6 mg-docusate sodium 50 mg tablet (Stimulant Laxative Plus) 2 tab PO BID PRN PRN Constipation #0 tabs 03/18/25 Hospital Course Summary of Care Provided Hospital Course: Laboratory Results 03/18/25 03:29: Total Bilirubin 0.85, Direct Bilirubin 0.40 H, AST 222 H, ALT 573 H, Alkaline Phosphatase 65, Total Protein 6.5, Albumin 3.9, Globulin 2.7 Clinical Impression(s) from Imaging Studies Gallbladder Ultrasound 03/16/25 10:30 IMPRESSION: 1. Enlarged hyperechoic liver, suggesting hepatic steatosis, although other diffuse liver diseases can have this appearance. 2. Hypoechoic lesion in the right liver. A follow-up liver protocol CT or MRI is recommended to further evaluate. 3. Cholelithiasis without signs of acute cholecystitis. 4. Findings suggesting gallbladder adenomyomatosis. 5. Distended common bile duct, without an obstructing lesion seen. Reading Location: [facility] Abdomen/Pelvis CT 03/16/25 12:05 IMPRESSION: Fatty liver. Well-defined lesion right lobe of liver favor focal nodular hyperplasia. Follow-up MR of the abdomen with Eovist in 4-6 months to confirm stability possibly helpful. Reading Location: [facility] C-Arm Fluoroscopy 03/16/25 15:55 IMPRESSION: Intraoperative fluoroscopy status post ERCP, as above. Reading Location: [facility] ERCP X-Ray 03/16/25 15:55 IMPRESSION: Intraoperative fluoroscopy status post ERCP, as above. Reading Location: [facility] Physical Exam Narrative Seen and examined. Abdominal pain has improved but is still mild epigastric/RUQ discomfort and withmild sore throat from ERCP. Liver chemistry shows improvement in transaminases. T. bili and ALP normal. No fever. Tolerated soft liquid Physical exam: General: Alert, Oriented x3, Cooperative. BMI 25.7 kg/m? HEENT: Atraumatic, PERRLA, EOMI, Normocephalic. Oral: Oral mucosa dry. No Gingival or Mucosal Lesions/ Ulcerations Neck: Supple, No JVD, Negative Carotid Bruits Chest wall/Lungs: Air entry equal in bilateral lung bases. No crepitation/rhonchi Cardiovascular: Regular rate and rhythm, Normal S1,S2, No M/G/R Abdomen: Bowel Sounds sluggish, Soft, mild discomfort over right upper quadrant and epigastric region. No distention : No dysuria. No renal angle tenderness. No suprapubic tenderness. Extremities: No edema, Capillary Refill Less than 3 Seconds Skin: No rashes, No breakdown Musculoskeletal: No Tenderness to Palpation of Joints or Extremities Neurological: Cranial nerves II-XII grossly intact, DTR 2+/4. No acute focal neurological deficit. Psych/Mental Status: Normal Affect, Appropriate. Weight / BMI Weight Weight: 236 lb 5.369 oz Body Mass Index (BMI) 26.0 ABG / Lab / Microbiology Data 03/17/25 05:47 03/17/25 05:47 Laboratory: Laboratory Results - last 24 hr 03/18/25 03:29: Total Bilirubin 0.85, Direct Bilirubin 0.40 H, AST 222 H, ALT 573 H, Alkaline Phosphatase 65, Total Protein 6.5, Albumin 3.9, Globulin 2.7 D/C Instructions DC O2, CPAP, BIPAP Needs Home O2 Discharge instructions: No Meaningful Use Info Meaningful Use Meaningful Use Diagnoses (Choose all that apply): None applicable Discharge Plan Admission Admit Date/Time: 03/16/25 12:53 Primary Reason for Your Visit: Acute on chronic GB colic with cholelithiasis andcholedocholithiasis Attending Provider: Jose Guadalupe Puckett Primary Care Provider: Care Physician,No Primary Consulting Providers: Jose Guadalupe Puckett; Yevgeniy Sarah; Karlee Green; Apolonia Pavon; Shira Alex Instructions Additional Instructions / Restrictions: Advised aeof-ecn-kchxcus Tylenol 500 mg to 1000 mg Q6 hourly as needed for fevermore than 102 Fahrenheit and moderate to severe pain respectively. Ioit-xgy-qdvxcgy, probiotic, lactobacillus/acidophilus 1 tablet twice daily for 7 days. Discharge Orders/Prescriptions Prescriptions: New sennosides-docusate sodium [Stimulant Laxative Plus] 8.6-50 mg Tablet 2 tab PO BID PRN PRN (Reason: Constipation) Qty: 0 0RF amoxicillin-pot clavulanate 875-125 mg tablet 1 tab PO BID Qty: 10 0RF Referrals / Follow Up: Yevgeniy Sarah DO [Med Staff - Active Staff, Gastroenterology] - Within 1 Month Abbie Philip MD [Med Staff - Active Staff, General Surgery] - Within 1 Week Care Physician,No Primary [Primary Care Provider, Medical] Disposition Disposition (needs filled in before D/C Order can be placed): Home, Self Care Charges/Coding Visit Charges Inpatient E&M: 66040 Disch Hosp >30min 03/18/25 0946 <Electronically signed by Jose Guadalupe Puckett MD> Cosigner Signature (if applicable): CC: Dr. Jose Guadalupe Puckett MD; Dr. Abbie Philip MD; No Primary Care Physician;Yevgeniy Sarah DO~ Signed [facility] Work Phone: Evaluation note* Diagnosis Onset Date Resolution Status Admit Date Cholelithiasis with acute on chronic cholecystitis acute March 16, 2025 12:53pm [facility] Work Phone: History and physical note Author Jose Guadalupe Puckett [facility] Note Date/Time March 16, 2025 2:14pm [facility] Medical Records Department [address] [place] [address] [place] [address] H&P Exam - Hospitalist 03/16/25 1334 MR#: [id number] Acct: [id number] Name: ALONDRA ARITA Rep #:[id number] : 1975 49 From: Jose Guadalupe White PCP: Care Physician,No Primary Status :ADM IN [place] [facility] [id number] HPI - General General Date of Admission: 03/16/25 Date of Service: 03/16/25 Chief Complaint: Right upper quadrant abdominal pain started at 1:30 AM today. No relief HPI Narrative ALONDRA ARITA, is a 49 M with history of intermittent right upper quadrant painfor 5 years probably GB colic, once every 2 to 4 months came to the ED when he got right upper quadrant pain, gnawing in type , long-lasting did not get bettersince 1:30 AM today. Patient stated previous episode, used to get better in a half an hour but this time it was not getting better. He said he never had beenevaluated by previous episodes of abdominal pain continues to get better with Motrin. No fever, nausea but no vomiting. Pain is more about her right upper and epigastric region ,localized with no radiation. In ED, right upper quadrant shows cholelithiasis, CBD dilatation, liver lesion, described in assessment plan. PENDING SALE TO [facility] Medical History GERD (gastroesophageal reflux disease) Medical History no medical history Allergy/AdvReac Type Severity Reaction Status Date / Time No Known Allergies Allergy Verified 03/16/25 13:09 Social History Smoking Status: Never smoker ROS ROS Narrative Constitutional: Reports fatigue and weakness. No fever. HEENT: Reports systems reviewed and no addt'l complaints, except as documented Respiratory/Chest: No smoking. No acute shortness of breath or respiratory distress or wheezing. CVS: No chest pain pressure tightness. Denies chronic cardiac disease Gastrointestinal: Rest as described in HPI. Bowel movements are normal. Deniescoffee ground emesis, hematemesis or vomiting Genitourinary: Denies burning urination or new urinary tract symptoms Musculoskeletal: Denies acute joint pain or limited range of motion. No acute injury Neurologic: Denies seizure-like symptoms. skin: No ulcer. No rash Endocrinology: Reports systems reviewed and no addt'l complaints, except as documented Hematologic/Lymphatic: Reports systems reviewed and no addt'l complaints, exceptas documented Rest 14 ROS are negative except as mentioned in HPI Vital Signs Vital Signs Vital Signs: 03/16/25 09:32 03/16/25 11:32 03/16/25 12:30 Temperature 97.2 F L 98.7 F Temperature Source Temporal Pulse Rate 100 75 68 Respiratory Rate 14 18 18 Respiratory Effort Respiratory Depth Respiratory Pattern Blood Pressure 153/88 H 113/73 121/78 H Blood Pressure Mean 109 86 92 Blood Pressure Source Blood Pressure Position Blood Pressure Location Pulse Ox 99 97 98 Oxygen Delivery Method Room Air Room Air 03/16/25 13:03 03/16/25 13:12 Temperature 98 F Temperature Source Oral Pulse Rate 72 Respiratory Rate 18 Respiratory Effort Normal Respiratory Depth Normal Respiratory Pattern Normal Blood Pressure 146/98 H Blood Pressure Mean 114 Blood Pressure Source Monitor Blood Pressure Position Sitting Blood Pressure Location Left Forearm Pulse Ox 97 Oxygen Delivery Method Room Air Room Air Weight Weight: 234 lb Body Mass Index (BMI) 25.7 Physical Exam Narrative General: Alert, Oriented x3, Cooperative. BMI 25.7 kg/m? HEENT: Atraumatic, PERRLA, EOMI, Normocephalic. Oral: Oral mucosa dry. No Gingival or Mucosal Lesions/ Ulcerations Neck: Supple, No JVD, Negative Carotid Bruits Chest wall/Lungs: Air entry equal in bilateral lung bases. No crepitation/rhonchi Cardiovascular: Regular rate and rhythm, Normal S1,S2, No M/G/R Abdomen: Bowel Sounds sluggish, Soft, mild tenderness right upper quadrant and epigastric region. No distention : No dysuria. No renal angle tenderness. No suprapubic tenderness. Extremities: No edema, Capillary Refill Less than 3 Seconds Skin: No rashes, No breakdown Musculoskeletal: No Tenderness to Palpation of Joints or Extremities Neurological: Cranial nerves II-XII grossly intact, DTR 2+/4. No acute focal neurological deficit. Psych/Mental Status: Normal Affect, Appropriate. Results Lab / Micro Data 03/16/25 09:54 03/16/25 09:54 Labs: Laboratory Results - last 24 hr 03/16/25 09:54: WBC 9.0, RBC 5.93, Hgb 17.0 H, Hct 48.0, MCV 80.9, MCH 28.7, MCHC 35.4, RDW Std Deviation 37.0, RDW Coeff of Ghulam 12.7, Plt Count 237, MPV 10.6, Immature Gran % (Auto) 0.400, Neut % (Auto) 75.9 H, Lymph % (Auto) 17.5 L,Stanly % (Auto) 4.8, Eos % (Auto) 1.0, Baso % (Auto) 0.4, Absolute Neuts (auto) 6.8, Absolute Lymphs (auto) 1.58, Nucleated RBC % 0, Sodium 138, Potassium 4.2, Chloride 104, Carbon Dioxide 20.3 L, Anion Gap 14, BUN 13, Creatinine 1.02, Estim Creat Clear Calc 102.77, Est GFR (MDRD) Non-Af 90, BUN/Creatinine Ratio 13.1, Glucose 118 H, Calcium 10.4, Total Bilirubin 1.60 H, Direct Bilirubin 0.73H, AST 525 H, ALT 370 H, Alkaline Phosphatase 64, Total Protein 7.5, Albumin 4.7, Globulin 2.9, Albumin/Globulin Ratio 1.6, Lipase 50 03/16/25 10:37: Urine Color Yellow, Urine Clarity Sl. Cloudy, Urine pH 6.0, Ur Specific [place] 1.010, Urine Protein Negative, Urine Glucose (UA) Normal, UrineKetones Negative, Urine Occult Blood 10 H, Urine Nitrite Negative, Urine Bilirubin Negative, Urine Urobilinogen Normal, Ur Leukocyte Esterase Negative, Urine RBC 0 SEEN, Urine WBC 0 SEEN, Ur Squamous Epith Cells 0 SEEN, Urine Bacteria 0 SEEN, Urine Mucus 0 SEEN Imaging Radiology Impression Gallbladder Ultrasound 03/16/25 10:30 IMPRESSION: 1. Enlarged hyperechoic liver, suggesting hepatic steatosis, although other diffuse liver diseases can have this appearance. 2. Hypoechoic lesion in the right liver. A follow-up liver protocol CT or MRI is recommended to further evaluate. 3. Cholelithiasis without signs of acute cholecystitis. 4. Findings suggesting gallbladder adenomyomatosis. 5. Distended common bile duct, without an obstructing lesion seen. Reading Location: [facility] Assessment & Plan Assessment/Plan (1) Cholelithiasis with acute on chronic cholecystitis: PLAN: Plan 49-year-old gentleman came to ED with right upper and epigastric abdominal pain since 1:30 AM today with nausea. 1. Acute on chronic GB colic with cholelithiasis with suspicion of choledocholithiasis: Patient is being admitted to [facility] floor. RUQ sonogram shows cholelithiasis without signs of acute cholecystitis. 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 GB reported normal in size with multiple stones, wall thickness 1.6 cm with echogenic intraluminal foci present, travel artifact suggesting of GB adenomyomatosis. No pericholecystic fluid. Clinically patientdoes not have fever, leukocytosis therefore suspicion of acute cholecystitis less likely. Dr. Sarah consulted for ERCP. I discussed with surgeon Dr. Philip and she states she will follow peripherally but will need follow-up in surgery office for interval cholecystectomy as there is a big stone with possible central trapped air as seen on CT scan. 2. Suspected Acute liver injury from cholelithiasis/and suspected choledocholithiasis: No previous lab to compare. Total bili 1.6, TB 0.73 AST 525, ALT 370, ALP normal. Lipase 50. 3. Liver lesion suspected benign lesion focal nodular hyperplasia and diffuse hepatic steatosis/MASLD/MASH: Ultrasound shows hypoechoic lesion in the right liver for which CT triple phase was done. It shows focal lesion right lobe of liver which enhance on the arterial image with partially fills on delayed images. There is central area with diminished enhancement. Lesion had similar enhancement to remainder of the liver on delayed images. It favors more focal nodular hyperplasia. Liver ultrasound shows enlarged hyperechoic liver suggestive of hepatic steatosis 4. Unknown past medical history but patient denies hypertension or diabetes mellitus. He does not have PCP. Never smoker. Does not drink alcohol. No substance use. 5. DVT prophylaxis, moderate risk on Lovenox 40 mg subcu daily Living will/advanced directive/end of life care: Patient does not have living will or advanced directive. After discussion of benefits/risks procedures involved with full code, DNR CC arrest and DNR CC, the patient opted for full code. Patient does want artificial life support including intubation, tube feed, ventilator and/chest compression, central venous catheter, vasopressor and DC shock if needed Total time spent in [id number] encounter in discussion of advanced directive 17 minutes. Laboratory Results 03/16/25 09:54: WBC 9.0, RBC 5.93, Hgb 17.0 H, Hct 48.0, MCV 80.9, MCH 28.7, MCHC 35.4, RDW Std Deviation 37.0, RDW Coeff of Ghulam 12.7, Plt Count 237, MPV 10.6, Immature Gran % (Auto) 0.400, Neut % (Auto) 75.9 H, Lymph % (Auto) 17.5 L,Stanly % (Auto) 4.8, Eos % (Auto) 1.0, Baso % (Auto) 0.4, Absolute Neuts (auto) 6.8, Absolute Lymphs (auto) 1.58, Nucleated RBC % 0, PT 13.3, INR 1.0, Sodium 138, Potassium 4.2, Chloride 104, Carbon Dioxide 20.3 L, Anion Gap 14, BUN 13, Creatinine 1.02, Estim Creat Clear Calc 102.77, Est GFR (MDRD) Non-Af 90, BUN/Creatinine Ratio 13.1, Glucose 118 H, Calcium 10.4, Total Bilirubin 1.60 H, Direct Bilirubin 0.73 H, AST 525 H, ALT 370 H, Alkaline Phosphatase 64, Total Protein 7.5, Albumin 4.7, Globulin 2.9, Albumin/Globulin Ratio 1.6, Lipase 50 03/16/25 10:37: Urine Color Yellow, Urine Clarity Sl. Cloudy, Urine pH 6.0, Ur Specific [place] 1.010, Urine Protein Negative, Urine Glucose (UA) Normal, UrineKetones Negative, Urine Occult Blood 10 H, Urine Nitrite Negative, Urine Bilirubin Negative, Urine Urobilinogen Normal, Ur Leukocyte Esterase Negative, Urine RBC 0 SEEN, Urine WBC 0 SEEN, Ur Squamous Epith Cells 0 SEEN, Urine Bacteria 0 SEEN, Urine Mucus 0 SEEN Clinical Impression(s) from Imaging Studies Gallbladder Ultrasound 03/16/25 10:30 IMPRESSION: 1. Enlarged hyperechoic liver, suggesting hepatic steatosis, although other diffuse liver diseases can have this appearance. 2. Hypoechoic lesion in the right liver. A follow-up liver protocol CT or MRI is recommended to further evaluate. 3. Cholelithiasis without signs of acute cholecystitis. 4. Findings suggesting gallbladder adenomyomatosis. 5. Distended common bile duct, without an obstructing lesion seen. Abdomen/Pelvis CT 03/16/25 12:05 IMPRESSION: Fatty liver. Well-defined lesion right lobe of liver favor focal nodular hyperplasia. Follow-up MR of the abdomen with Eovist in 4-6 months to confirm stability possibly helpful. Reading Location: [facility] Charges/Coding Visit Charges Inpatient E&M: 19099 Init Hosp L3 Procedures Hospitalists Procedures: 09527 Advncd Care Plan 30 Min 03/16/25 1414 <Electronically signed by Jose Guadalupe Puckett MD> Cosigner Signature (if applicable): CC: Dr. Jose Guadalupe Pucektt MD; Dr. Abbie Philip MD; No Primary Care Physician;Yevgeniy Friend, DO~ Signed [facility] Work Phone: Hospital Discharge instructionsAdditional Instructions Advised [id number] Tylenol 500 mg to 1000 mg Q6 hourly as needed for fever more than 102 Fahrenheit and moderate to severe pain respectively. [id number], probiotic, lactobacillus/acidophilus 1 tablet twice daily for 7 days. [facility]: [facility] Work Phone: Progress note Author Jose Guadalupe Puckett [facility] Note Date/Time March 17, 2025 1:02pm [facility] Medical Records Department [address] [place] [id number] Progress Note - Hospitalist 03/17/25 0754 MR#: [id number] Acct: [id number] Name: ALONDRA ARITA Rep #:[id number] : 1975 49 From: Jose Guadalupe White PCP: Care Physician,No Primary Status :ADM IN [place] [facility] [place] Reason for Visit Chief Complaint: Right upper quadrant abdominal pain started at 1:30 AM today. No relief Objective Data Objective Data Vital Signs: Vital Signs Temp Pulse Resp BP Pulse Ox O2 Del Method 97.8 F 71 15 107/63 95 Room Air 03/17/25 05:35 03/17/25 05:35 03/17/25 05:35 03/17/25 05:35 03/17/25 05:35 03/17/25 05:35 Oxygen Delivery Method Room Air Weight: 232 lb 9.403 oz Body Mass Index (BMI) 25.6 Intake & Output: Intake and Output for Last 24 Hours 03/15/25 03/16/25 03/17/25 23:59 23:59 23:59 Intake Total 1250 / 1250 1050 / 1050 Balance 1250 / 1250 1050 / 1050 Lab / Micro Data 03/17/25 05:47 03/17/25 05:47 Labs: Laboratory Results - last 24 hr 03/16/25 09:54: WBC 9.0, RBC 5.93, Hgb 17.0 H, Hct 48.0, MCV 80.9, MCH 28.7, MCHC 35.4, RDW Std Deviation 37.0, RDW Coeff of Ghulam 12.7, Plt Count 237, MPV 10.6, Immature Gran % (Auto) 0.400, Neut % (Auto) 75.9 H, Lymph % (Auto) 17.5 L,Stanly % (Auto) 4.8, Eos % (Auto) 1.0, Baso % (Auto) 0.4, Absolute Neuts (auto) 6.8, Absolute Lymphs (auto) 1.58, Nucleated RBC % 0, PT 13.3, INR 1.0, Sodium 138, Potassium 4.2, Chloride 104, Carbon Dioxide 20.3 L, Anion Gap 14, BUN 13, Creatinine 1.02, Estim Creat Clear Calc 102.77, Est GFR (MDRD) Non-Af 90, BUN/Creatinine Ratio 13.1, Glucose 118 H, Calcium 10.4, Total Bilirubin 1.60 H, Direct Bilirubin 0.73 H, AST 525 H, ALT 370 H, Alkaline Phosphatase 64, Total Protein 7.5, Albumin 4.7, Globulin 2.9, Albumin/Globulin Ratio 1.6, Lipase 50 03/16/25 10:37: Urine Color Yellow, Urine Clarity Sl. Cloudy, Urine pH 6.0, Ur Specific [place] 1.010, Urine Protein Negative, Urine Glucose (UA) Normal, UrineKetones Negative, Urine Occult Blood 10 H, Urine Nitrite Negative, Urine Bilirubin Negative, Urine Urobilinogen Normal, Ur Leukocyte Esterase Negative, Urine RBC 0 SEEN, Urine WBC 0 SEEN, Ur Squamous Epith Cells 0 SEEN, Urine Bacteria 0 SEEN, Urine Mucus 0 SEEN 03/17/25 05:47: WBC 11.5 H, RBC 5.40, Hgb 15.2, Hct 43.5, MCV 80.6, MCH 28.1, MCHC 34.9, RDW Std Deviation 38.0, RDW Coeff of Ghulam 13.2, Plt Count 242, MPV 10.7, Immature Gran % (Auto) 0.400, Neut % (Auto) 83.5 H, Lymph % (Auto) 12.9 L,Stanly % (Auto) 3.1, Eos % (Auto) 0.0, Baso % (Auto) 0.1, Absolute Neuts (auto) 9.6 H, Absolute Lymphs (auto) 1.48, Nucleated RBC % 0, Sodium 138, Potassium 4.0, Chloride 105, Carbon Dioxide 19.5 L, Anion Gap 13, BUN 9, Creatinine 0.92, Estim Creat Clear Calc 130.43, Est GFR (MDRD) Non-Af 101, BUN/Creatinine Ratio 9.9 L, Glucose 125 H, Calcium 9.0, Total Bilirubin 1.56 H, Direct Bilirubin 0.91H, AST 618 H, ALT 865 H, Alkaline Phosphatase 72, Total Protein 6.8, Albumin 4.2, Globulin 2.6 Radiography Diagnostic Testing: Radiology Impression Gallbladder Ultrasound 03/16/25 10:30 IMPRESSION: 1. Enlarged hyperechoic liver, suggesting hepatic steatosis, although other diffuse liver diseases can have this appearance. 2. Hypoechoic lesion in the right liver. A follow-up liver protocol CT or MRI is recommended to further evaluate. 3. Cholelithiasis without signs of acute cholecystitis. 4. Findings suggesting gallbladder adenomyomatosis. 5. Distended common bile duct, without an obstructing lesion seen. Reading Location: [id number] Abdomen/Pelvis CT 03/16/25 12:05 IMPRESSION: Fatty liver. Well-defined lesion right lobe of liver favor focal nodular hyperplasia. Follow-up MR of the abdomen with Eovist in 4-6 months to confirm stability possibly helpful. Reading Location: [id number] C-Arm Fluoroscopy 03/16/25 15:55 IMPRESSION: Intraoperative fluoroscopy status post ERCP, as above. Reading Location: [id number] ERCP X-Ray 03/16/25 15:55 IMPRESSION: Intraoperative fluoroscopy status post ERCP, as above. Reading Location: [facility] Rhythm Strip Rhythm Strip: Sinus Rhythm Rate: 76 Ectopy: None Physical Exam Narrative Seen and examined. Abdominal pain has improved but is still mild epigastric/RUQ discomfort. Liver chemistry shows mild increase in transaminases after ERCP. No fever. Physical exam: General: Alert, Oriented x3, Cooperative. BMI 25.7 kg/m? HEENT: Atraumatic, PERRLA, EOMI, Normocephalic. Oral: Oral mucosa dry. No Gingival or Mucosal Lesions/ Ulcerations Neck: Supple, No JVD, Negative Carotid Bruits Chest wall/Lungs: Air entry equal in bilateral lung bases. No crepitation/rhonchi Cardiovascular: Regular rate and rhythm, Normal S1,S2, No M/G/R Abdomen: Bowel Sounds sluggish, Soft, mild tenderness right upper quadrant and epigastric region. No distention : No dysuria. No renal angle tenderness. No suprapubic tenderness. Extremities: No edema, Capillary Refill Less than 3 Seconds Skin: No rashes, No breakdown Musculoskeletal: No Tenderness to Palpation of Joints or Extremities Neurological: Cranial nerves II-XII grossly intact, DTR 2+/4. No acute focal neurological deficit. Psych/Mental Status: Normal Affect, Appropriate. Assessment & Plan Assessment/Plan (1) Cholelithiasis with acute on chronic cholecystitis: PLAN: Plan 49-year-old gentleman came to ED with right upper and epigastric abdominal pain since 1:30 AM today with nausea. 1. Acute on chronic GB colic with cholelithiasis with suspicion of choledocholithiasis: [facility] RUQ sonogram shows cholelithiasis without signs of acute cholecystitis. 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 GB reported normal in size with multiple stones, wall thickness 1.6 cm with echogenic intraluminal foci present, comet artifact suggesting of GB adenomyomatosis. No pericholecystic fluid. Clinically patientdoes not have fever, leukocytosis therefore suspicion of acute cholecystitis less likely. Dr. Sarah consulted for ERCP. I discussed with surgeon Dr. Philip and she states she will follow peripherally but will need follow-up in surgery office for interval cholecystectomy as there is a big stone with possible central trapped air as seen on CT scan. 03/17: Discussed with the surgeon. Plan for office follow-up in 2 weeks after discharge. As transaminases are elevated but total bilirubin same probably mildirritation due to ERCP therefore we will keep the patient today. Continue IV antibiotic. Clear liquid, advance as per tolerated to full and soft diet. The patient does not seem to have cholecystitis features either clinically or radiologically. Mild increase in WBC count probably after reactive ERCP. ERCP on 03/16 Impression: - The entire main bile duct was moderately dilated, with a stone causing an obstruction. - Choledocholithiasis was found. Partial removal was accomplished with biliary sphincterotomy; a stent was inserted. - A biliary sphincterotomy was performed. - The biliary tree was swept. - One temporary stent was placed into the common bile duct. 2. Suspected Acute liver injury from cholelithiasis/and suspected choledocholithiasis: No previous lab to compare. Total bili 1.6, TB 0.73 AST 525, ALT 370, ALP normal. Lipase 50. 3. Liver lesion suspected benign lesion focal nodular hyperplasia and diffuse hepatic steatosis/MASLD/MASH: Ultrasound shows hypoechoic lesion in the right liver for which CT triple phase was done. It shows focal lesion right lobe of liver which enhance on the arterial image with partially fills on delayed images. There is central area with diminished enhancement. Lesion had similar enhancement to remainder of the liver on delayed images. It favors more focal nodular hyperplasia. Liver ultrasound shows enlarged hyperechoic liver suggestive of hepatic steatosis 03/17: Focal nodular hyperplasia explained to the patient and his . Benign developmental malformation liver lesion. 4. Unknown past medical history but patient denies hypertension or diabetes mellitus. He does not have PCP. Never smoker. Does not drink alcohol. No substance use. 03/17: Explained to the patient advised that he needs to establish PCP. 5. DVT prophylaxis, moderate risk on Lovenox 40 mg subcu daily Living will/advanced directive/end of life care: Patient does not have living will or advanced directive. After discussion of benefits/risks procedures involved with full code, DNR CC arrest and DNR CC, the patient opted for full code. Patient does want artificial life support including intubation, tube feed, ventilator and/chest compression, central venous catheter, vasopressor and DC shock if needed Total time spent in [id number] encounter in discussion of advanced directive 17 minutes. Laboratory Results 03/16/25 09:54: WBC 9.0, RBC 5.93, Hgb 17.0 H, Hct 48.0, MCV 80.9, MCH 28.7, MCHC 35.4, RDW Std Deviation 37.0, RDW Coeff of Ghulam 12.7, Plt Count 237, MPV 10.6, Immature Gran % (Auto) 0.400, Neut % (Auto) 75.9 H, Lymph % (Auto) 17.5 L,Stanly % (Auto) 4.8, Eos % (Auto) 1.0, Baso % (Auto) 0.4, Absolute Neuts (auto) 6.8, Absolute Lymphs (auto) 1.58, Nucleated RBC % 0, PT 13.3, INR 1.0, Sodium 138, Potassium 4.2, Chloride 104, Carbon Dioxide 20.3 L, Anion Gap 14, BUN 13, Creatinine 1.02, Estim Creat Clear Calc 102.77, Est GFR (MDRD) Non-Af 90, BUN/Creatinine Ratio 13.1, Glucose 118 H, Calcium 10.4, Total Bilirubin 1.60 H, Direct Bilirubin 0.73 H, AST 525 H, ALT 370 H, Alkaline Phosphatase 64, Total Protein 7.5, Albumin 4.7, Globulin 2.9, Albumin/Globulin Ratio 1.6, Lipase 50 03/16/25 10:37: Urine Color Yellow, Urine Clarity Sl. Cloudy, Urine pH 6.0, Ur Specific [place] 1.010, Urine Protein Negative, Urine Glucose (UA) Normal, UrineKetones Negative, Urine Occult Blood 10 H, Urine Nitrite Negative, Urine Bilirubin Negative, Urine Urobilinogen Normal, Ur Leukocyte Esterase Negative, Urine RBC 0 SEEN, Urine WBC 0 SEEN, Ur Squamous Epith Cells 0 SEEN, Urine Bacteria 0 SEEN, Urine Mucus 0 SEEN Laboratory Results 03/16/25 09:54: PT 13.3, INR 1.0, Direct Bilirubin 0.73 H 03/17/25 05:47: WBC 11.5 H, RBC 5.40, Hgb 15.2, Hct 43.5, MCV 80.6, MCH 28.1, MCHC 34.9, RDW Std Deviation 38.0, RDW Coeff of Ghulam 13.2, Plt Count 242, MPV 10.7, Immature Gran % (Auto) 0.400, Neut % (Auto) 83.5 H, Lymph % (Auto) 12.9 L,Stanly % (Auto) 3.1, Eos % (Auto) 0.0, Baso % (Auto) 0.1, Absolute Neuts (auto) 9.6 H, Absolute Lymphs (auto) 1.48, Nucleated RBC % 0, Sodium 138, Potassium 4.0, Chloride 105, Carbon Dioxide 19.5 L, Anion Gap 13, BUN 9, Creatinine 0.92, Estim Creat Clear Calc 130.43, Est GFR (MDRD) Non-Af 101, BUN/Creatinine Ratio 9.9 L, Glucose 125 H, Calcium 9.0, Total Bilirubin 1.56 H, Direct Bilirubin 0.91H, AST 618 H, ALT 865 H, Alkaline Phosphatase 72, Total Protein 6.8, Albumin 4.2, Globulin 2.6 Clinical Impression(s) from Imaging Studies Gallbladder Ultrasound 03/16/25 10:30 IMPRESSION: 1. Enlarged hyperechoic liver, suggesting hepatic steatosis, although other diffuse liver diseases can have this appearance. 2. Hypoechoic lesion in the right liver. A follow-up liver protocol CT or MRI is recommended to further evaluate. 3. Cholelithiasis without signs of acute cholecystitis. 4. Findings suggesting gallbladder adenomyomatosis. 5. Distended common bile duct, without an obstructing lesion seen. Abdomen/Pelvis CT 03/16/25 12:05 IMPRESSION: Fatty liver. Well-defined lesion right lobe of liver favor focal nodular hyperplasia. Follow-up MR of the abdomen with Eovist in 4-6 months to confirm stability possibly helpful. Reading Location: [id number] Charges/Coding Visit Charges Inpatient E&M: 91002 Subs Hosp L2 03/17/25 1302 <Electronically signed by Jose Guadalupe Puckett MD> Cosigner Signature (if applicable): CC: ~ Signed [facility] Work Phone: Reason for referral (narrative)No reason for referral [facility] Work Phone: Chief Complaint and Reason for Visit Chief Complaint Admit Date GB COLIC PAIN March 16, 2025 12:53pm GB COLIC PAIN March 16, 2025 1:34pm GB COLIC PAIN March 16, 2025 3:37pm GB COLIC PAIN March 17, 2025 7:54am GB COLIC PAIN March 18, 2025 9:40am Reason for Visit Admit Date Cholelithiasis with acute on chronic cho lecystitis March 16, 2025 12:53pm Chief Complaint Admit Date GB COLIC PAIN March 16, 2025 12:53pm GB COLIC PAIN March 16, 2025 1:34pm GB COLIC PAIN March 16, 2025 3:37pm GB COLIC PAIN March 17, 2025 7:54am GB COLIC PAIN March 18, 2025 9:40am DISCUSS LAP/ROBOTIC CYNDIE March 23 8:39am Advance Directives No Advanced Directives Records Found Advance Directive Response Recorded Date/ Time Do you have a Healthcare Power of Assistant Professor Of Mathematics? No March 16, 2025 1:04pm Summary Purpose Family History No Family History Records Found Additional Source Comments Care Teams (unrecognized sec tion and content) Team Status: Active Member Role/Relationship Status Dates No Primary Care Physician Primary care physician Activ e Team Status: Inactive Member Role/Relationship Status Dates No Primary Care Physician Primary care physician Activ e Start: March 16, 2025 End: March 18, 2025 Dr. Lucretia Bear DO Emergency Departm ent Physician Active Start: March 16, 2025 End: March 18, 2025 Dr. Landry Mendoza MD Admitting physician Active Start: February End: March 18, 2025 Dr. Jose Guadalupe Puckett MD Attending physician Active Start: March 16, 2025 End: March 18, 2025 Dr. Jose Guadalupe Puckett MD Nurse Practitioner Active Start: March 16, 2025 End: March 18, 2025 Dr. Yevgeniy Sarah DO Nurse Practitioner Active Start: March 16, 2025 End: March 18, 2025 PORSCHE Shields Nurse Practitioner Active S tart: March 16, 2025 End: March 18, 2025 PORSCHE Dawson Nurse Practitioner Active Start: March 16, 2025 End: March 18, 2025 MERE Robles Nurse Practitioner Active Start: March 16, 2025 End: March 18, 2025 Team Status: Active Member Role/Relationship Status Dates No Primary Care Physician Primary care physician Activ e Start: March 16, 2025 Dr. Lucretia Bear , DO Emergency Departm ent Physician Active Start: March 16, 2025 Dr. Landry Mendoza MD Admitting physician Active Start: February Dr. Jose Guadalupe Puckett MD Attending physician Active Start: March 16, 2025 Dr. Jose Guadalupe Puckett MD Nurse Practitioner Active Start: March 16, 2025 Dr. Yevgeniy Sarah DO Nurse Practitioner Active Start: March 16, 2025 PORSCHE Shields Nurse Practitioner Active S tart: March 16, 2025 SHAHAB DawsonC Nurse Practitioner Active Start: March 16, 2025 MERE Robles Nurse Practitioner Active Start: March 16, 2025 Team Status: Active Member Role/Relationship Status Dates No Primary Care Physician Primary care physician Activ e Start: March 16, 2025 Dr. Lucretia Bear , DO Emergency Departm ent Physician Active Start: March 16, 2025 Dr. Landry Mendoza MD Admitting physician Active Start: February Dr. Jose Guadalupe Puckett MD Nurse Practitioner Active Start: March 16, 2025 Dr. Yevgeniy Sarah DO Attending physician Active Start: March 16, 2025 Dr. Yevgeniy Sarah DO Nurse Practitioner Active Start: March 16, 2025 PORSCHE Shields Nurse Practitioner Active S tart: March 16, 2025 PORSCHE Dawson Nurse Practitioner Active Start: March 16, 2025 MERE Robles Nurse Practitioner Active Start: March 16, 2025 Team Status: Active Member Role/Relationship Status Dates No Primary Care Physician Primary care physician Activ e Start: March 17, 2025 Dr. Lucretia Bear , DO Emergency Departm ent Physician Active Start: March 17, 2025 Dr. Landry Mendoza MD Admitting physician Active Start: February Dr. Jose Guadalupe Puckett MD Attending physician Active Start: March 17, 2025 Dr. Jose Guadalupe Puckett MD Nurse Practitioner Active Start: March 17, 2025 Dr. Yevgeniy Sarah DO Nurse Practitioner Active Start: March 17, 2025 PORSCHE Shields Nurse Practitioner Active S tart: March 17, 2025 PORSCHE Dawson Nurse Practitioner Active Start: March 17, 2025 MERE Robles Nurse Practitioner Active Start: March 17, 2025 Team Status: Active Member Role/Relationship Status Dates No Primary Care Physician Primary care physician Activ e Start: March 18, 2025 Dr. Lucretia Bear DO Emergency Departm ent Physician Active Start: March 18, 2025 Dr. Landry Mendoza MD Admitting physician Active Start: February Dr. Jose Guadalupe Puckett MD Attending physician Active Start: March 18, 2025 Dr. Jose Guadalupe Puckett MD Nurse Practitioner Active Start: March 18, 2025 Dr. Yevgeniy Sarah DO Nurse Practitioner Active Start: March 18, 2025 PORSCHE Shields Nurse Practitioner Active S tart: March 18, 2025 PORSCHE Dawson Nurse Practitioner Active Start: March 18, 2025 MERE Robles Nurse Practitioner Active Start: March 18, 2025 Team Status: Inactive Member Role/Relationship Status Dates No Primary Care Physician Primary care physician Activ e Start: March 23, 2025 End: March 23, 2025 No Primary Care Physician Referring Provider Active Start: March 23, 2025 End: March 23, 2025 Dr. Abbie Philip MD Attending physician Active Start: March 23, 2025 End: March 23, 2025 (unrecognized sect ion and content) No Status Records Found INFORMATION SOURCE (unrecogn ized section and content) DATE CREATED AUTHOR 04/05/2025 [facility] FOR RECORDS PERTAINING TO PATIENTS WHO ARE OR HAVE BEEN ENROLLED IN A CHEMICAL DEPENDENCY/SUBSTANCEABUSE PROGRAM, SOME INFORMATION MAY BE OMITTED. This clinical summary was aggregated from multiple sources. Caution should be exercised in using it in the provision of clinical care. This summary normalizes information from multiple sources, and as a consequence, information in this document may materially change the coding, format and clinical context of patient data. In addition, data may be omitted in some cases. CLINICAL DECISIONS SHOULD BE BASED ON THE PRIMARY CLINICAL RECORDS. [facility]. provides no warranty or guarantee of the accuracy or completeness of information in this document.
[2025-04-07] MEDS: 0.9% Normal Saline (1000mL) 1,000 ML 999 ML IV (14:20)
[2025-04-07 14:29] LABS: Hematocrit 47.1 % (40-54); Hemoglobin 16.3 g/dL (13.0-16.5); Immature Granulocytes Count 0.060 X10^3/uL (0.0-0.0); Mean Corp Hgb Conc 34.6 g/dL (32-36); Mean Corpuscular Volume 80.4 fL (80-94); Mean Platelet Vol. 10.3 fl (6.2-12.0); NRBC Flagged by Analyzer 0 % (0-5); Platelet Count 346 K/mm3 (150-450); RBC Distribution Width CV 12.9 % (11.6-14.6); RBC Distribution Width SD 37.2 fl (35.1-43.9); Red Blood Count 5.86 M/mm3 (4.6-6.2); White Blood Count 12.5 K/mm3 (4.4-11.0)
[2025-04-07 14:46] LABS: AST(SGOT) 18 U/L (<=37); Alanine Aminotransfer ALT/SGPT 26 U/L (<=46); Albumin, Serum 4.2 g/dL (3.5-5.0); Alkaline Phosphatase 52 U/L (40-129); Anion Gap 15 (5-15); BUN 16 mg/dL (4-19); BUN/Creat Ratio 17.4 RATIO (10-20); Calcium,Total 9.9 mg/dL (7.6-11.0); Carbon Dioxide 22.5 mmol/L (21.0-32.0); Chloride 100 mmol/L (98-108); Estimated Creatinine Clearance 107.69 ml/min (50-250); Globulin 3.4 g/dL (2.2-4.2); Glucose 119 mg/dL (70-99); Lipase 36 U/L (13-75); Potassium 3.6 mmol/L (3.3-5.1)
--- NOTE | 2025-04-07 15:37 | PCM.HP.STD ---
HPI - General General Date of Service: 04/07/25 HPI Narrative ALONDRA ARITA, is a 49 M who presents due to nausea and vomiting status post robotic cholecystectomy on 04/04. Patient has had vomiting daily since the surgery and states that he feels better once he throws up but it is not really able to take any food even liquids cause him discomfort. Patient's white blood count is 12.5 with slight left shift. Patient's LFTs are normal. Patient CT shows an incisional hernia causing a bowel obstruction. [facility], [facility] Medical History (Updated 04/07/25 @ 15:[address] Abbie Philip MD) Wears glasses Fatty liver Heartburn Gastric reflux Non-smoker Nausea Abdominal pain GERD (gastroesophageal reflux disease) Home Medications ?Medication ?Instructions ?Recorded ?Last Taken ?Type omeprazole 40 mg capsule,delayed 40 mg PO QDAY #30 caps 03/23/25 04/03/25 Rx release oxycodone 5 mg capsule 5 mg PO Q6H PRN pain 3 days #10 04/04/25 Unknown Rx caps Allergy/AdvReac Type Severity Reaction Status Date / Time No Known Allergies Allergy Verified 04/07/25 13:36 Surgical History S/P laparoscopic cholecystectomy History of wisdom tooth extraction (~06/21/94) Hx of LASIK History of ERCP (03/16/25) Social History Smoking Status: Never smoker alcohol intake: never substance use type: does not use Vital Signs Vital Signs Vital Signs: 04/07/25 13:36 04/07/25 13:38 04/07/25 13:51 Temperature 98.9 F 98.9 F Temperature Source Oral Oral Pulse Rate 101 H 101 H 88 Respiratory Rate 18 21 H 19 H Blood Pressure 120/88 H 134/84 H Blood Pressure Mean 98 100 Pulse Ox 95 96 96 Oxygen Delivery Method Room Air Room Air Room Air Weight Weight: 223 lb Body Mass Index (BMI) 34.9 Physical Exam Const oriented x3 Resp normal respiratory effort Cardio regular rate GI GI Narrative: Incisions dressed clean dry and intact, hernia reduced at supraumbilical incision at bedside?tender Inspection: Negative for abdominal distention Results Lab / Micro Data 04/07/25 14:15 04/07/25 14:15 Labs: Laboratory Results - last 24 hr 04/07/25 14:15: WBC 12.5 H, RBC 5.86, Hgb 16.3, Hct 47.1, MCV 80.4, MCH 27.8, MCHC 34.6, RDW Std Deviation 37.2, RDW Coeff of Ghulam 12.9, Plt Count 346, MPV 10.3, Immature Gran % (Auto) 0.500, Neut % (Auto) 79.5 H, Lymph % (Auto) 13.7 L, [place] % (Auto) 5.4, Eos % (Auto) 0.6, Baso % (Auto) 0.3, Absolute Neuts (auto) 10.0 H, Absolute Lymphs (auto) 1.71, Nucleated RBC % 0, Sodium 137, Potassium 3.6, Chloride 100, Carbon Dioxide 22.5, Anion Gap 15, BUN 16, Creatinine 0.93, Estim Creat Clear Calc 107.69, Est GFR (MDRD) Non-Af 101, BUN/Creatinine Ratio 17.4, Glucose 119 H, Calcium 9.9, Total Bilirubin 0.75, AST 18, ALT 26, Alkaline Phosphatase 52, Total Protein 7.6, Albumin 4.2, Globulin 3.4, Albumin/Globulin Ratio 1.2, Lipase 36 Assessment & Plan Assessment/Plan (1) Incisional hernia with bowel obstruction: PLAN: Plan Hernia was able to be reduced at bedside. Patient will also be getting NG in the ER to help prevent aspiration during intubation in the OR. Plan for incisional hernia repair discussed risk including but not limited to bleeding, infection, need for further surgery. Patient is had no further question this time. Abbie Philip M.D. Pager: [phone] [facility] [address] [place] [address], [facility], [address] [place] [address] Office: [phone]
--- OUTSIDE RECORDS SUMMARY | 2025-04-07 15:39 | XMS RPT_ITS | CCD ---
Author Organization [facility] Care Team Providers Care Anodic Treater Name Role Phone Care Physician, No Primary Primary Care Physicia n Unavailable Dr. Lucretia Bear DO Emergency Department Physi alexsander Reji BROOKS, Dr. Landry Cox Admitting Physician Italo BROOKS, Dr. Shi Attending Physician Italo BROOKS, Dr. Shi Nurse Practitioner Dr. Yevgeniy Sarah DO Nurse Practitioner Peter MANAGER [facility]ARMAC[facility]-CKarlee Nurse Practitioner [phone] Librado [facility]C, [place] Nurse Practitioner Shira Dawson Nurse Practitioner Dr. Yevgeniy Sarah DO Attending Physician [phone] Care Physician, No Primary Referring Provider Un available Cedrick BROOKS, Dr. Leiva Attending Physician [phone] Care Physician, No Primary Primary Care Unava [...] 03-18-2025 docusate sodium 50 mg / sennosides, senior living 8.6 mg oral tablet (3 sources) Start: [...] Range Facility Discharge Instructionon 03-21 Discharge Instruction [facility] Medical Records Department [address] [place] [address] Instructions for Home/Discharge Instructions 04/04/25 1526 MR#: [id number] Acct: [id number] Name: ALONDRA ARITA Rep #: [id number] : 1975 49 From: Abbie Philip MD PCP: Roman Physician,No Primary Status:REG [facility] Discharge Instructions Diet Discharge Diet: Light diet [...] 5 PM and on the weekends call [phone] with any concerns. Test Results: Test results from this visit will be discussed in further detail at your follow-up appointment, if applicable. Discharge Plan Admission Attending Provider: Abbie Philip Primary Care Provider: Roman Physician,No Primary Instructions Print Language: Guinean Discharge Orders/Prescriptions Prescriptions: New oxycodone 5 mg [...] CC: No Primary Care Physician Signed Normal [facility] Liver Profileon 04-04-2025 Albumin [Mass/Vol] 4.5 g/dL Normal 3.5-5.0 [facility] Comment on above: Performed By: #### L 500.3400 ####[facility] [address] [place], [address] ALK PHOS 58 U/L Normal 40-129 [facility] Comment on above: Performed By: #### L 500.3400 ####[facility] [address] [place], [address] ALT [Catalytic activity/Vol] 44 U/L Normal <=46 [facility] Comment on above: Performed By: #### L 500.3400 ####[facility] [address] [place], [address] AST [Catalytic activity/Vol] 30 U/L Normal <=37 [facility] Comment on above: Performed By: #### L 500.3400 ####[facility] [address] [place], [address] Bilirubin [Mass/Vol] 0.71 mg/dL Normal 0.00-1.30 [facility] Comment on above: Performed By: #### L 500.3400 ####[facility] [address] [place], [address] Bilirubin.direct [Mass/Vol] 0.32 mg/dL High 0.00-0.30 [facility] Comment on above: Performed By: #### L 500.3400 ####[facility] [address] [place], [address] Globulin (S) [Mass/Vol] 3.2 g/dL Normal 2.2-4.2 [facility] Comment on above: Performed By: #### L 500.3400 ####[facility] [address] [place], [address] T PROT 7.7 g/dL Normal 5.9-8.4 [facility] Comment on above: Performed By: #### L 500.3400 ####[facility] [address] [place], [address] MR/POSTOP.ANEon 04-04-2025 MR/POSTOP.ANE [facility] Medical Records Department [address] [place] [address] Anesthesia Postop Eval I 04/04/25 1545 MR#: [id number] Acct: [id number] Name: LYLAALONDRA DORSEY Rep #: [id number] : 1975 49 From: Bryosn Yanes CRNA PCP: Care Physician,No Primary Status:REG [facility] Y Race: C Location: [place] [address] Anesthesia: Postop Eval I Current Vital Signs [...] CRNA Cosigner Signature: Date CC: Signed Normal [facility] MR/[id number] 04-04-2025 MR/POSTOPAN2 [facility] Medical Records Department [address] [place] [address] Anesthesia Postop Eval II 04/04/25 1737 MR#: [id number] Acct: [id number] Name: ALONDRA ARITA Rep #: [id number] : 1975 49 From: Armando Gmoez MD PCP: Care Physician,No Primary Status:REG SDC Y Race: C Location: [place] [address] Anesthesia Postop Eval I Sum Postop Eval Completion status Anesthesia document: Postop Eval 1 completed: Yes Anesthesia Postop Eval I Summary Anesthesia Postop Eval I Summary: Anesthesia Postop Eval I: Assessment Summary Airway patent Yes 04/04/25 15:46 TEA [email or web address] Spontaneous unlabored Yes 04/04/25 15:46 TEA [email or web address] [email or web address].PKEL respirations Mental status Awake,Calm 04/04/25 15:46 TEA [email or web address] [email or web address].PKEL nausea No 04/04/25 15:46 TEA LEAF [email or web address].PKEL Vomiting No 04/04/25 15:46 TEA [email or web address] [email or web address] Anesthesia Postop Eval I: Fluid Summary Crystalloid volume administer 1,600 04/04/25 15:46 TEA LEAF [email or web address].PKEL (ml) Colloids volume administered ( ml) Blood Product volume administered (ml) Total IV fluid infused 1,600 04/04/25 15:46 TEA LEAF [email or web address].PKEL Anesthesia Postop Eval I: Summary Notes Anesthesia Complication No 04/04/25 15:46 TEA [email or web address] [email or web address] Anesthesia Complication Comment: Post-operative progress note Anesthesia: Postop Eval II Evaluation Mental status: Awake and Calm Pain Level: 1 nausea: No Vomiting: No Complications Anesthesia Complication: No 04/04/25 1737 Date Armando Gomez MD Cosigner Signature: Date CC: Signed Normal [facility] Operative Reporton 5 Operative Report [facility] Medical Records Department [address] [place] [address] Operative Report 04/04/25 1520 MR#: [id number] Acct: [id number] Name: ALONDRA ARITA Rep #: [id number] : 1975 49 From: Abbie Philip MD PCP: Care Physician,No Primary Status:[facility] Location: [facility] Operative Report (Standard) Operative Information Date of Procedure: 04/04/25 Pre-Operative Diagnosis: Cholelithiasis Post-Operative Diagnosis: Cholelithiasis, hydrops of the gallbladder Surgery/Procedure Performed: Robotic cholecystectomy with attempted cholangiogram/ICG lockmaker: Yes Pizza Baker: Sarah Beth Baumann Tasks completed by mate first: Opening closing Type of Anesthesia: General/Supplemental RN [...] the supraumbilical site was closed with 2 joxztg-pl-sabns sutures as well as interrupted 0 Vicryl suture. The skin was closed with sutures of 4-0 Monocryl and Steri-Strips. The patient was extubated. The patient tolerated procedure well and was taken to the postanesthesia care unit in stable condition. Surgical Findings: See operative report Complications Complications: No 04/04/25 0109 (more content not included)... Normal [facility] Surgery Visit Reporton 03-23 Surgery Visit Report [facility] [address] [place] [address] OFFICE VISIT Date of Service: 03/23/25 MR#: [id number] Acct: [id number] Name: ALONDRA ARITA Rep #: [id number] : 1975 Provider: Dr. Abbie gould MD Age/Sex: 49/M Location: [facility] Status: Signed Intake Vital Signs 03/16/25 13:04 [...] healthy appearing, comfortable and no acute distress [facility] Head: normocephalic and atraumatic Neck Neck: [...] Philip M.D. (more content not included)... Normal [facility] Bilirubin directOrdered By: Jose Guadalupe Puckett on 03-18-2025 Bilirubin.direct [Mass/Vol] 0.40 mg/dL High 0.00-0.30 [facility] Bilirubin, totalOrdered By: Jose Guadalupe Puckett on 03-18-2025 Bilirubin [Mass/Vol] 0.85 mg/dL 0.00-1.30 [facility] Discharge Instructionon 02-20 Discharge Instruction [facility] Medical Records Department [address] [place] [address] Instructions for Home/Discharge Instructions 03/18/25 0935 MR#: [id number] Acct: [id number] Name: ALONDRA ARITA Rep #: [id number] : 1975 49 From: Jose Guadalupe Puckett [...] Alex Instructions Additional Instructions / Restrictions: Advised cjbh-mpa-pthunyc Tylenol 500 mg to 1000 mg Q6 hourly as needed for fever more than 102 Fahrenheit and moderate to severe pain respectively. Uwpt-btp-nrkpssw, probiotic, lactobacillus/acidophi tre 1 tablet twice daily [...] 03/18/25 0940 Jose Guadalupe Puckett MD CC: MANAGER CLINICAL PHARMACYMaliha Green; JACOBO-Amelia Pavon; Dr. Jose Guadalupe Puckett MD; MERE Robles; No Primary Care Physician; Yevgeniy Sarah DO Signed Normal [facility] Electrocardiogram reportOrde red By: Constantin Acosta on 03-18-2025 EKG study [facility] Cardiovascular Services [address] [place] [address] 12 Lead EKG 03/16/25 1044 MR#: [id number] Acct: [id number] Name: ALONDRA ARITA Rep #:[id number] : 1975 49 From: Constantin Acosta MD Attending Dr: Dr. Jose Guadalupe Puckett MD Status: DIS IN Ordering Dr: Lucretia Bear DO Date: 0 03/16/25 Location: [facility] Sex: M C Admitted: 03/16/25 Test Reason [...] Normal ECG Confirmed by CONSTANTIN ACOSTA ([id number]), scientific publications editor CARI OLIVARES ([id number]) on 03/19/2025 9:11:15 AM Referred By: Confirmed By: CONSTANTIN ACOSTA 03/19/25910 Date _ Constantin Acosta MD CC: Dr. Lucretia Bear DO; Dr. Jose Guadalupe Puckett MD; No Primary Care Physician ~ Signed [facility] Other Phone: Laboratory - Chemistry and C hemistry - challengeOrdered By: Jose Guadalupe Puckett on 03-18-2025 AST [Catalytic activity/Vol] 222 U/L High <38 [facility] Liver Profileon 03-18-2025 Albumin [Mass/Vol] 3.9 g/dL Normal 3.5-5.0 [facility] Comment on above: Performed By: #### L 500.3400 ####[facility] [address] [place], [address] ALK PHOS 65 U/L Normal 40-129 [facility] Comment on above: Performed By: #### L 500.3400 ####[facility] [address] [place], [address] ALT [Catalytic activity/Vol] 573 U/L High <=46 [facility] Comment on above: Performed By: #### L 500.3400 ####[facility] [address] [place], [address] AST [Catalytic activity/Vol] 222 U/L High <=37 [facility] Comment on above: Performed By: #### L 500.3400 ####[facility] [address] [place], [address] Bilirubin [Mass/Vol] 0.85 mg/dL Normal 0.00-1.30 [facility] Comment on above: Performed By: #### L 500.3400 ####[facility] [address] [place], [address] Bilirubin.direct [Mass/Vol] 0.40 mg/dL High 0.00-0.30 [facility] Comment on above: Performed By: #### L 500.3400 ####[facility] [address] [place], [address] Globulin (S) [Mass/Vol] 2.7 g/dL Normal 2.2-4.2 [facility] Comment on above: Performed By: #### L 500.3400 ####[facility] [address] [place], [place], [address] T PROT 6.5 g/dL Normal 5.9-8.4 [facility] Comment on above: Performed By: #### L 500.3400 ####[facility] [address] [place], [place], [address] Serum globulin measurementOr dered By: Jose Guadalupe Puckett on 03-18-2025 Globulin (S) [Mass/Vol] 2.7 g/dL 2.2-4.2 [facility] Serum or plasma alanine jackson otransferase (ALT) measurementOrdered By: Jose Guadalupe Puckett on 03-18-2025 ALT [Catalytic activity/Vol] 573 U/L High <47 [facility] Serum or plasma albumin carlos urement (mass/volume)Ordered By: Jose Guadalupe Puckett on 03-18-2025 Albumin [Mass/Vol] 3.9 g/dL 3.5-5.0 [facility] Serum or plasma alkaline julio sphatase measurementOrdered By: Jose Guadalupe Puckett on 03-18-2025 ALP [Catalytic activity/Vol] 65 U/L 40-129 [facility] Total proteinOrdered By: Michael Puckett on 03-18-2025 Protein [Mass/Vol] 6.5 g/dL 5.9-8.4 [facility] Absolute lymphocyte countOrd ered By: Jose Guadalupe Puckett on 03-17-2025 Lymphocytes Auto (Unsp spec) [#/Vol] 1.48 10*3/uL 0.83-4.51 [facility] Absolute neutrophil countOrd ered By: Jose Guadalupe Puckett on 03-17-2025 Neutrophils (Bld) [#/Vol] 9.6 10*3/uL High 2.0-7.7 [facility] Anion gap in Serum or Plasma Ordered By: Jose Guadalupe Puckett on 03-17-2025 Anion gap [Moles/Vol] 13 mmol/L 5-15 [facility] Automated lymphocyte count a s percentage of total leukocytesOrdered By: Jose Guadalupecipriano Puckett on 03-17-2025 Lymphocytes/100 WBC Auto (Unsp spec) 12.9 % Low 19-41 [facility] BUN/creatinine ratioOrdered By: Jose Guadalupe Puckett on 03-17-2025 Urea nitrogen/Creatinine [Mass ratio] 9.9 mg/mg Low 10-20 [facility] Basic Metabolic Profile (BMP )on 03-17-2025 BUN/CRE 9.9 RATIO Low 10-20 [facility] Comment on above: Performed By: #### L 500.3400, L100.0100, L500.2500 ####[facility] [address] [place], [address] Calcium [Mass/Vol] 9.0 mg/dL Normal 7.6-11.0 [facility] Comment on above: Performed By: #### L 500.3400, L100.0100, L500.2500 ####[facility] [address] [place], [address] Chloride [Moles/Vol] 105 mmol/L Normal 98-108 [facility] Comment on above: Performed By: #### L 500.3400, L100.0100, L500.2500 ####[facility] [address] [place], [address] CO2 [Moles/Vol] 19.5 mmol/L Low 21.0-32.0 [facility] Comment on above: Performed By: #### L 500.3400, L100.0100, L500.2500 ####[facility] [address] [place], [address] Creatinine [Mass/Vol] 0.92 mg/dL Normal 0.70-1.20 [facility] Comment on above: Performed By: #### L 500.3400, L100.0100, L500.2500 ####[facility] [address] [place], [address] ECRCL 130.43 ml/min Normal 50-250 [facility] Comment on above: Performed By: #### L 500.3400, L100.0100, L500.2500 ####[facility] [address] [place], [address] GAP 13 Normal 5-15 [facility] Comment on above: Performed By: #### L 500.3400, L100.0100, L500.2500 ####[facility] [address] [place], [address] GFR/1.73 sq M.predicted among non-blacks MDRD (S/P/Bld) [Vol rate/Area] 101 mL/min/{1.73_m2} Normal >60 [facility] Comment on above: Result Comment: mL/m in/1.73m2 CKD-EPI Creatinine Equation (2020) Performed By: #### L 500.3400, L100.0100, L500.2500 ####[facility] [address] [place], [address] Glucose [Mass/Vol] 125 mg/dL High 70-99 [facility] Comment on above: Performed By: #### L 500.3400, L100.0100, L500.2500 ####[facility] [address] [place], [address] Potassium [Moles/Vol] 4.0 mmol/L Normal 3.3-5.1 [facility] Comment on above: Performed By: #### L 500.3400, L100.0100, L500.2500 ####[facility] [address] [place], [address] Sodium [Moles/Vol] 138 mmol/L Normal 133-145 [facility] Comment on above: Performed By: #### L 500.3400, L100.0100, L500.2500 ####[facility] [address] [place], [address] Urea nitrogen [Mass/Vol] 9 mg/dL Normal 4-19 [facility] Comment on above: Performed By: #### L 500.3400, L100.0100, L500.2500 ####[facility] [address] [place], [address] Basophil percentageOrdered B y: Jose Guadalupe Puckett on 03-17-2025 Basophils/100 WBC (Bld) 0.1 % 0-1 [facility] CBC W/Diff, Automatedon 02-20 Absolute Lymph 1.48 X10 3/uL Normal 0.83-4.51 [facility] Comment on above: Performed By: #### L 500.3400, L100.0100, L500.2500 #### [facility] [address] [place], [address] Absolute Neut 9.6 X10 3/uL High 2.0-7.7 [facility] Comment on above: Performed By: #### L 500.3400, L100.0100, L500.2500 #### [facility] [address] [place], [address] Basophils/100 WBC (Bld) 0.1 % Normal 0-1 [facility] Comment on above: Performed By: #### L 500.3400, L100.0100, L500.2500 #### [facility] [address] [place], [address] Eosinophils/100 WBC (Bld) 0.0 % Normal 0-5 [facility] Comment on above: Performed By: #### L 500.3400, L100.0100, L500.2500 #### [facility] [address] [place], [address] Erythrocyte distribution width (RBC) [Ratio] 13.2 % Normal 11.6-14.6 [facility] Comment on above: Performed By: #### L 500.3400, L100.0100, L500.2500 #### [facility] [address] [place], [address] Hematocrit (Bld) [Volume fraction] 43.5 % Normal 40-54 [facility] Comment on above: Performed By: #### L 500.3400, L100.0100, L500.2500 #### [facility] [address] [place], [address] Hemoglobin (Bld) [Mass/Vol] 15.2 g/dL Normal 13.0-16.5 [facility] Comment on above: Performed By: #### L 500.3400, L100.0100, L500.2500 #### [facility] [address] [place], [address] IG% 0.400 Normal 0.0-0.9 [facility] Comment on above: Result Comment: IG% - Immature Granulocytes (promyelocytes, myelocytes and metamyelocytes) > 1% indicates that a LEFT SHIFT is Present. Performed By: #### L 500.3400, L100.0100, L500.2500 #### [facility] [address] [place], [address] Lymphocytes/100 WBC (Bld) 12.9 % Low 19-41 [facility] Comment on above: Performed By: #### L 500.3400, L100.0100, L500.2500 #### [facility] [address] [place], [address] MCH (RBC) [Entitic mass] 28.1 pg Normal 27.0-32.0 [facility] Comment on above: Performed By: #### L 500.3400, L100.0100, L500.2500 #### [facility] [address] [place], [address] MCHC (RBC) [Mass/Vol] 34.9 g/dL Normal 32-36 [facility] Comment on above: Performed By: #### L 500.3400, L100.0100, L500.2500 #### [facility] [address] [place], [address] MCV (RBC) [Entitic vol] 80.6 fL Normal 80-94 [facility] Comment on above: Performed By: #### L 500.3400, L100.0100, L500.2500 #### [facility] [address] [place], [address] Monocytes/100 WBC (Bld) 3.1 % Normal 0-10 [facility] Comment on above: Performed By: #### L 500.3400, L100.0100, L500.2500 #### [facility] [address] [place], [address] Neutrophils/100 WBC (Bld) 83.5 % High 47-70 [facility] Comment on above: Performed By: #### L 500.3400, L100.0100, L500.2500 #### [facility] [address] [place], [address] Nucleated RBC (Bld) [#/Vol] 0 10*3/uL Normal 0-5 [facility] Comment on above: Performed By: #### L 500.3400, L100.0100, L500.2500 #### [facility] [address] [place], [address] Platelet mean volume (Bld) [Entitic vol] 10.7 fL Normal 6.2-12.0 [facility] Comment on above: Performed By: #### L 500.3400, L100.0100, L500.2500 #### [facility] [address] [place], [address] Platelets (Bld) [#/Vol] 242 10*3/uL Normal 150-450 [facility] Comment on above: Performed By: #### L 500.3400, L100.0100, L500.2500 #### [facility] [address] [place], [address] RBC (Bld) [#/Vol] 5.40 10*6/uL Normal 4.6-6.2 [facility] Comment on above: Performed By: #### L 500.3400, L100.0100, L500.2500 #### [facility] [address] [place], [address] RDW SD 38.0 fl Normal 35.1-43.9 [facility] Comment on above: Performed By: #### L 500.3400, L100.0100, L500.2500 #### [facility] [address] [place], [address] WBC (Bld) [#/Vol] 11.5 10*3/uL High 4.4-11.0 [facility] Comment on above: Performed By: #### L 500.3400, L100.0100, L500.2500 #### [facility] [address] [place], [address] Carbon dioxide, total [Moles /volume] in Central venous bloodOrdered By: Jose Guadalupe Pucktet on 03-17-2025 CO2 [Moles/Vol] 19.5 mmol/L Low 21.0-32.0 [facility] Chloride assayOrdered By: Gillian Puckett on 03-17-2025 Chloride [Moles/Vol] 105 mmol/L 98-108 [facility] Eosinophil percentageOrdered By: Jose Guadalupe Puckett on 03-17-2025 Eosinophils/100 WBC (Bld) 0.0 % 0-5 [facility] Erythrocyte distribution wid th ratioOrdered By: Jose Guadalupe Puckett on 03-17-2025 Erythrocyte distribution width (RBC) [Ratio] 13.2 % 11.6-14.6 [facility] Erythrocyte distribution wid th standard deviationOrdered By: Jose Guadalupe Puckett on 03-17-2025 Erythrocyte distribution width (RBC) [Ratio] 38.0 fl 35.1-43.9 [facility] Glomerular filtration rate ( GFR) estimation/1.73 sq m using serum, plasma, or whole bOrdered By: Jose Guadalupe Puckett on 03-17-2025 GFR/1.73 sq M.predicted among non-blacks MDRD (S/P/Bld) [Vol rate/Area] 101 mL/min/{1.73_m2} >60 [facility] Comment on above: mL/min/1.73m2 CKD-EP I Creatinine Equation (2020) Hematocrit Auto (Bld) [Volum e fraction]Ordered By: Jose Guadalupe Puckett on 03-17-2025 Hematocrit (Bld) [Volume fraction] 43.5 % 40-54 [facility] Hemoglobin measurementOrdere d By: Jose Guadalupe Puckett on 03-17-2025 Hemoglobin (Bld) [Mass/Vol] 15.2 g/dL 13.0-16.5 [facility] Immature granulocytes/100 WB C Auto (Bld)Ordered By: Jose Guadalupe Puckett on 03-17-2025 Immature granulocytes/100 WBC (Bld) 0.400 % 0.0-0.9 [facility] Comment on above: IG% - Immature Granu locytes (promyelocytes, myelocytes and metamyelocytes) > 1% indicates that a LEFT SHIFT is Present. Liver Profileon 03-17-2025 ALT [Catalytic activity/Vol] 865 U/L High <=46 [facility] Comment on above: Performed By: #### L 500.3400, L100.0100, L500.2500 ####[facility] [address] [place], [place], [id number] MCV (mean corpuscular volume ) determinationOrdered By: Jose Guadalupe Puckett on 03-17-2025 MCV (RBC) [Entitic vol] 80.6 fL 80-94 [facility] Mean corpuscular hemoglobin (MCH) determinationOrdered By: Jose Guadalupe Puckett on 03-17-2025 MCH (RBC) [Entitic mass] 28.1 pg 27.0-32.0 [facility] Mean corpuscular hemoglobin concentration (MCHC) determinationOrdered By: Jose Guadalupe Puckett on 03-17-2025 MCHC (RBC) [Mass/Vol] 34.9 g/dL 32-36 [facility] Mean platelet volume determi nationOrdered By: Jose Guadalupe Puckett on 03-17-2025 Platelet mean volume (Bld) [Entitic vol] 10.7 fL 6.2-12.0 [facility] Monocyte percentageOrdered B y: Jose Guadalupe Puckett on 03-17-2025 Monocytes/100 WBC (Bld) 3.1 % 0-10 [facility] Neutrophil percentageOrdered By: Jose Guadalupe Puckett on 03-17-2025 Neutrophils/100 WBC (Bld) 83.5 % High 47-70 [facility] Nucleated red blood cell per centageOrdered By: Jose Guadalupe Puckett on 03-17-2025 Nucleated RBC/100 WBC (Bld) [Ratio] 0 % 0-5 [facility] Platelet countOrdered By: Gillian Puckett on 03-17-2025 Platelets (Bld) [#/Vol] 242 10*3/uL 150-450 [facility] Potassium measurement (mass/ volume)Ordered By: Jose Guadalupe Puckett on 03-17-2025 Potassium (Unsp spec) [Mass/Vol] 4.0 mmol/L 3.3-5.1 [facility] RBC Auto (Bld) [#/Vol]Ordere d By: Jose Guadalupe Puckett on 03-17-2025 RBC (Bld) [#/Vol] 5.40 10*6/uL 4.6-6.2 [facility] Serum creatinine measurement (mass/volume)Ordered By: Jose Guadalupe Puckett on 03-17-2025 Creatinine [Mass/Vol] 0.92 mg/dL 0.70-1.20 [facility] Serum glucose measurement (m ass/volume)Ordered By: Jose Guadalupe Puckett on 03-17-2025 Glucose [Mass/Vol] 125 mg/dL High 70-99 [facility] Serum or plasma calcium cralos urement (mass/volume)Ordered By: Jose Guadalupe Puckett on 03-17-2025 Calcium [Mass/Vol] 9.0 mg/dL 7.6-11.0 [facility] Serum or plasma urea nitroge n measurement (mass/volume)Ordered By: Jose Guadalupe Puckett on 03-17-2025 Urea nitrogen [Mass/Vol] 9 mg/dL 4-19 [facility] Sodium levelOrdered By: Yury Puckett on 03-17-2025 Sodium [Moles/Vol] 138 mmol/L 133-145 [facility] White blood cell (WBC) count Ordered By: Jose Guadalupe Puckett on 03-17-2025 WBC (Bld) [#/Vol] 11.5 10*3/uL High 4.4-11.0 [facility] 12 Lead EKGon 03-16-2025 12 Lead EKG [facility] Cardiovascular Services [address] [place] [address] 12 Lead EKG 03/16/25 1044 MR#: [id number] Acct: [id number] Name: ALONDRA ARITA Rep #: [id number] : 1975 49 From: Constantin Acosta MD Attending Dr: Dr. Jose Guadalupe Puckett MD Status: DIS IN Ordering Dr: uLcretia Bear DO Date: 03/16/25 Location: [facility] Sex: M C Admitted: 03/16/25 Test Reason : GENERAL Blood Pressure : */* mmHG Vent. Rate : 76 BPM Atrial Rate : 76 BPM P-R Int : 170 ms QRS Dur : 76 ms QT Int : 354 ms P-R-T Axes : 51 18 38 degrees QTcB Int : 398 ms Normal sinus rhythm with sinus arrhythmia Normal ECG Confirmed by CONSTANTIN ACOSTA ([id number]), scientific publications editor CARI OLIVARES ([id number]) on 03/19/2025 9:11:15 AM Referred By: Confirmed By: CONSTANTIN ACOSTA 03/19/25910 Date Constantin Acosta MD CC: Dr. Lucretia Bear DO; Dr. Jose Guadalupe Puckett MD; No Primary Care Physician Signed Normal [facility] Bilirubin Test strip Ql (U)O rdered By: Lucretia Bear on 03-16-2025 Bilirubin Ql (U) Negative Negative [facility] Bilirubin, Directon 03-16-20 Bilirubin.direct [Mass/Vol] 0.73 mg/dL High 0.00-0.30 [facility] Comment on above: Result Comment: Hemo lysis present, Results??could be affected. ?? Performed By: #### L 501.4700 ####[facility] [address] [place], [address] CBC W/Diff, Automatedon 09-2 -2024 Absolute Lymph 1.58 X10 3/uL Normal 0.83-4.51 [facility] Comment on above: Performed By: #### L 100.0100, L500.4050, L501.2450 #### [facility] [address] [place], [address] Absolute Neut 6.8 X10 3/uL Normal 2.0-7.7 [facility] Comment on above: Performed By: #### L 100.0100, L500.4050, L501.2450 #### [facility] [address] [place], [address] Basophils/100 WBC (Bld) 0.4 % Normal 0-1 [facility] Comment on above: Performed By: #### L 100.0100, L500.4050, L501.2450 #### [facility] [address] [place], [address] Eosinophils/100 WBC (Bld) 1.0 % Normal 0-5 [facility] Comment on above: Performed By: #### L 100.0100, L500.4050, L501.2450 #### [facility] [address] [place], [address] Erythrocyte distribution width (RBC) [Ratio] 12.7 % Normal 11.6-14.6 [facility] Comment on above: Performed By: #### L 100.0100, L500.4050, L501.2450 #### [facility] [address] [place], [address] Hematocrit (Bld) [Volume fraction] 48.0 % Normal 40-54 [facility] Comment on above: Performed By: #### L 100.0100, L500.4050, L501.2450 #### [facility] [address] [place], [address] Hemoglobin (Bld) [Mass/Vol] 17.0 g/dL High 13.0-16.5 [facility] Comment on above: Performed By: #### L 100.0100, L500.4050, L501.2450 #### [facility] [address] [place], [address] IG% 0.400 Normal 0.0-0.9 [facility] Comment on above: Result Comment: IG% - Immature Granulocytes (promyelocytes, myelocytes and metamyelocytes) > 1% indicates that a LEFT SHIFT is Present. Performed By: #### L 100.0100, L500.4050, L501.2450 #### [facility] [address] [place], [address] Lymphocytes/100 WBC (Bld) 17.5 % Low 19-41 [facility] Comment on above: Performed By: #### L 100.0100, L500.4050, L501.2450 #### [facility] [address] [place], [address] MCH (RBC) [Entitic mass] 28.7 pg Normal 27.0-32.0 [facility] Comment on above: Performed By: #### L 100.0100, L500.4050, L501.2450 #### [facility] [address] [place], [address] MCHC (RBC) [Mass/Vol] 35.4 g/dL Normal 32-36 [facility] Comment on above: Performed By: #### L 100.0100, L500.4050, L501.2450 #### [facility] [address] [place], [address] MCV (RBC) [Entitic vol] 80.9 fL Normal 80-94 [facility] Comment on above: Performed By: #### L 100.0100, L500.4050, L501.2450 #### [facility] [address] [place], [address] Monocytes/100 WBC (Bld) 4.8 % Normal 0-10 [facility] Comment on above: Performed By: #### L 100.0100, L500.4050, L501.2450 #### [facility] [address] [place], [address] Neutrophils/100 WBC (Bld) 75.9 % High 47-70 [facility] Comment on above: Performed By: #### L 100.0100, L500.4050, L501.2450 #### [facility] [address] [place], [address] Nucleated RBC (Bld) [#/Vol] 0 10*3/uL Normal 0-5 [facility] Comment on above: Performed By: #### L 100.0100, L500.4050, L501.2450 #### [facility] [address] [place], [address] Platelet mean volume (Bld) [Entitic vol] 10.6 fL Normal 6.2-12.0 [facility] Comment on above: Performed By: #### L 100.0100, L500.4050, L501.2450 #### [facility] [address] [place], [address] Platelets (Bld) [#/Vol] 237 10*3/uL Normal 150-450 [facility] Comment on above: Performed By: #### L 100.0100, L500.4050, L501.2450 #### [facility] [address] [place], [address] RBC (Bld) [#/Vol] 5.93 10*6/uL Normal 4.6-6.2 [facility] Comment on above: Performed By: #### L 100.0100, L500.4050, L501.2450 #### [facility] [address] [place], [address] RDW SD 37.0 fl Normal 35.1-43.9 [facility] Comment on above: Performed By: #### L 100.0100, L500.4050, L501.2450 #### [facility] [address] [place], [address] WBC (Bld) [#/Vol] 9.0 10*3/uL Normal 4.4-11.0 [facility] Comment on above: Performed By: #### L 100.0100, L500.4050, L501.2450 #### [facility] [address] [place], [address] CT Abd/Pelvis W/WO Contrasto n 03-16-2025 CT Abd/Pelvis W/WO Contrast [facility] Imaging Services [address] [place] [address] CT Abd/Pelvis W/WO Contrast MR#: [id number] Acct: [id number] Name: ALONDRA ARITA Rep #: [id number] : 1975 M 49 From: Justo Ortega MD PCP: Care Physician,No Primary Status: ADM IN Study: CT Abd/Pelvis W/WO Contrast Date of Exam: 02/20 12/13 Exam# [id number] Ordering Dr: Jose Guadalupe Puckett MD PROCEDURE: [...] to confirm stability possibly helpful. Reading Location: [id number] CC: Dr. Jose Guadalupe Puckett MD; No Primary Care Physician Network Operations Manager: Signed Normal [facility] Comprehensive Metabolic Prof ilon 03-16-2025 Albumin [Mass/Vol] 4.7 g/dL Normal 3.5-5.0 [facility] Comment on above: Performed By: #### L 100.0100, L500.4050, L501.2450 #### [facility] [address] [place], [place], [address] Albumin/Globulin [Mass ratio] 1.6 {ratio} Normal 0.9-2.4 [facility] Comment on above: Performed By: #### L 100.0100, L500.4050, L501.2450 #### [facility] [address] [place], [address] ALK PHOS 64 U/L Normal 40-129 [facility] Comment on above: Performed By: #### L 100.0100, L500.4050, L501.2450 #### [facility] [address] [place], [address] ALT [Catalytic activity/Vol] 370 U/L High <=46 [facility] Comment on above: Performed By: #### L 100.0100, L500.4050, L501.2450 #### [facility] [address] [place], [address] AST [Catalytic activity/Vol] 525 U/L High <=37 [facility] Comment on above: Result Comment: Hemo lysis present, Results??could be affected. ?? Performed By: #### L 100.0100, L500.4050, L501.2450 #### [facility] [address] [place], [address] Bilirubin [Mass/Vol] 1.60 mg/dL High 0.00-1.30 [facility] Comment on above: Performed By: #### L 100.0100, L500.4050, L501.2450 #### [facility] [address] [place], [address] BUN/CRE 13.1 RATIO Normal 10-20 [facility] Comment on above: Performed By: #### L 100.0100, L500.4050, L501.2450 #### [facility] [address] [place], [address] Calcium [Mass/Vol] 10.4 mg/dL Normal 7.6-11.0 [facility] Comment on above: Performed By: #### L 100.0100, L500.4050, L501.2450 #### [facility] [address] [place], [address] Chloride [Moles/Vol] 104 mmol/L Normal 98-108 [facility] Comment on above: Performed By: #### L 100.0100, L500.4050, L501.2450 #### [facility] [address] [place], [address] CO2 [Moles/Vol] 20.3 mmol/L Low 21.0-32.0 [facility] Comment on above: Performed By: #### L 100.0100, L500.4050, L501.2450 #### [facility] [address] [place], [address] Creatinine [Mass/Vol] 1.02 mg/dL Normal 0.70-1.20 [facility] Comment on above: Performed By: #### L 100.0100, L500.4050, L501.2450 #### [facility] [address] [place], [address] ECRCL 102.77 ml/min Normal 50-250 [facility] Comment on above: Performed By: #### L 100.0100, L500.4050, L501.2450 #### [facility] [address] [place], [address] GAP 14 Normal 5-15 [facility] Comment on above: Performed By: #### L 100.0100, L500.4050, L501.2450 #### [facility] [address] [place], [address] GFR/1.73 sq M.predicted among non-blacks MDRD (S/P/Bld) [Vol rate/Area] 90 mL/min/{1.73_m2} Normal >60 [facility] Comment on above: Result Comment: mL/m in/1.73m2 CKD-EPI Creatinine Equation (2020) Performed By: #### L 100.0100, L500.4050, L501.2450 #### [facility] [address] [place], [address] Globulin (S) [Mass/Vol] 2.9 g/dL Normal 2.2-4.2 [facility] Comment on above: Performed By: #### L 100.0100, L500.4050, L501.2450 #### [facility] [address] [place], [address] Glucose [Mass/Vol] 118 mg/dL High 70-99 [facility] Comment on above: Performed By: #### L 100.0100, L500.4050, L501.2450 #### [facility] [address] [place], [address] Potassium [Moles/Vol] 4.2 mmol/L Normal 3.3-5.1 [facility] Comment on above: Result Comment: Hemo lysis present, Results??could be affected. ?? Performed By: #### L 100.0100, L500.4050, L501.2450 #### [facility] [address] [place], [address] Sodium [Moles/Vol] 138 mmol/L Normal 133-145 [facility] Comment on above: Performed By: #### L 100.0100, L500.4050, L501.2450 #### [facility] [address] [place], [address] T PROT 7.5 g/dL Normal 5.9-8.4 [facility] Comment on above: Performed By: #### L 100.0100, L500.4050, L501.2450 #### [facility] [address] [place], [address] Urea nitrogen [Mass/Vol] 13 mg/dL Normal 4-19 [facility] Comment on above: Performed By: #### L 100.0100, L500.4050, L501.2450 #### [facility] [address] [place], [address] ERCP Biliary Onlyon 03-16-20 ERCP Biliary Only [facility] Imaging Services [address] [place] [address] ERCP Biliary Only MR#: [id number] Acct: [id number] Name: ALONDRA ARITA Rep #: [id number] : 1975 M 49 From: Chino Elliott MD PCP: Care Physician,No Primary Status: ADM IN Study: ERCP Biliary Only Date of Exam: 03/16/25 Exam# [id number] Ordering Dr: Yevgeniy Sarah DO EXAM: ERCP [...] status post ERCP, as above. Reading Location: [id number] CC: No Primary Care Physician; Yevgeniy Sarah DO Network Operations Manager: Signed Normal [facility] ERCP Reporton 03-16-2025 ERCP Report [facility] Medical Records Department [address] [place] [address] ERCP Report MR#: [id number] Acct: [id number] Name: ALONDRA ARITA Rep #: [id number] : 1975 49 From: Yevgeniy Sarah DO [...] hours 19 minutes 10 seconds Findings: The bookmobile librarian film was normal. The esophagus was successfully [...] stent was (more content not included)... Normal [facility] Emergency Department Summary on 03-16-2025 Emergency Department Summary [facility] Medical Records Department [address] [place] [address] Emergency Department Summary 03/16/25 MR#: [id number] Acct: [id number] Name: ALONDRA ARITA Rep #: [id number] : 1975 49 From: Lucretia Bear DO PCP: Care Physician,No Primary Status:ADM IN Location: [place] [address] HPI HPI - GI History of Present [...] other complaints or concerns at this time [facility] Medical History GERD (gastroesophageal reflux disease) [...] some abn (more content not included)... Normal [facility] Gallbladderon 03-16-2025 Gallbladder [facility] Imaging Services [address] [place] [address] Gallbladder MR#: [id number] Acct: [id number] Name: ALONDRA ARITA Rep #: [id number] : 1975 M 49 From: Farzana Early MD PCP: Care Physician,No Primary Status: REG ER Study: Gallbladder Date of Exam: 03/16/25 Exam# [id number] Ordering Dr: Lucretia Bear DO PROCEDURE: GALLBLADDER [...] without an obstructing lesion seen. Reading Location: [id number] CC: Dr. Lucretia Bear DO; No Primary Care Physician Network Operations Manager: Signed Normal [facility] H AND P Exam - Hospitaliston 03-16-2025 H&P Exam - Hospitalist [facility] Medical Records Department [address] [place] [address] H P Exam - Hospitalist 03/16/25 1334 MR#: [id number] Acct: [id number] Name: ALONDRA ARITA Rep #: [id number] : 1975 49 From: Jose Guadalupe Puckett MD PCP: Care Physician,No Primary Status:ADM IN Location: [facility]3 [id number] HPI - General General Date of Admission: [...] dilatation, liver lesion, described in assessment plan. [facility] Medical History GERD (gastroesophageal reflux disease) [...] 75.9 H, Lymph % (Auto) 17.5 L, Citrus % (Auto) 4.8, Eos % (Auto) 1.0, Baso % (Auto) 0.4, Ab (more content not included)... Normal [facility] International normalized rat io (INR) calculationOrdered By: Jose Guadalupe Puckett on 03-16-2025 INR Coag (Bld) [Relative time] 1.0 {INR} [facility] Ketones Test strip Ql (U)Ord ered By: Lucretia Bear on 03-16-2025 Ketones Ql (U) Negative Negative [facility] Lipaseon 03-16-2025 Lipase [Catalytic activity/Vol] 50 U/L Normal [facility] Comment on above: Result Comment: Cris elizalde note: LIPASE revised reference range effective 22. New Lipase methodology. Expected to produce lower values than the previous assay method. NEW Reference Range: 13 - 75 U/L Performed By: #### L 100.0100, L500.4050, L501.2450 #### [facility] [address] [facility] [place], [address] Lipase measurementOrdered By : Lucretia Bear on 03-16-2025 Lipase [Catalytic activity/Vol] 50 U/L [facility] Comment on above: Please note:LIPASE r evised reference range effective 22. New Lipase methodology. Expected to produce lower values than the previous assay method. NEW Reference Range: 13 - 75 U/L MR/CON.PCM.GIon 03-16-2025 MR/CON.PCM.GI [facility] Medical Records Department [address] [place] [address] Consultation - GI 03/16/25 1537 MR#: [id number] Acct: [id number] Name: ALONDRA ARITA Rep #: [id number] : 1975 49 From: Yevgeniy Sarah DO PCP: Care Physician,No Primary Status:ADM IN [facility] Consult Data Date of Consult: 03/16/25 [...] 75.9 H, Lymph % (Auto) 17.5 L, Citrus % (Auto) 4.8, Eos % (Auto) 1.0, [...] Sl. Cloudy, Urine pH 6.0, Ur Specific Freer 1.010, Urine Protein Negative, Urine Glucose (UA) [...] without an obstructing lesion seen. Reading Location: [id number] Abdomen/Pelvis CT 03/16/25 12:05 IMPRESSION: Fatty liver. Well-defined lesion right lobe of liver favor focal nodular hyperplasia. Follow-up MR of the abdomen with Eovist in 4-6 months to confirm (more content not included)... Normal [facility] MR/OP.PR[facility]ATon 03-16-2025 [facility] Medical Records Department [address] [place] [address] Provation Physician Letter MR#: [id number] Acct: [id number] Name: ALONDRA ARITA Rep #: [id number] : 1975 49 From: Yevgeniy Sarah DO [...] Yevgeniy Toussaint Signature: Date (if indicated) CC: MANAGER CLINICAL PHARMACYMaliha Green; MANAGER CLINICAL PHARMACYMaliha Pavon; Dr. Jose Guadalupe Puckett MD; MERE Robles; No Primary Care Physician; Yevgeniy Sarah DO Date Dictated: 03/16/25 1524 Date Transcribed: Network Operations Manager: RF Signed [facility] MR/POSTOP.ANE 03-16-2025 MR[facility]OP[facility] Medical Records Department [address] [place] [address] Anesthesia Postop Eval I 03/16/25 1638 MR#: [id number] Acct: [id number] Name: ALONDRA ARITA Rep #: [id number] : 1975 49 From: Rich Polo MD PCP: Care Physician,No Primary Status:DIS IN Y Race: C Location: [place] [address] Anesthesia: Postop Eval I Current Vital Signs [...] 1 completed: Yes 03/20/25 0856 Date Rich Polo MD 03/26/25 0724 Cosigner Signature: Date Dusty Wilson CRNA CC: Signed [facility] MR/SHDHEPNX9mr 03-16-2025 [facility] Medical Records Department [address] [facility] [place] [address] Anesthesia Postop Eval II 03/16/25 1655 MR#: [id number] Acct: [id number] Name: ALONDRA ARITA Rep #: [id number] : 1975 49 From: Armando Gomez MD PCP: Care Physician,No Primary Status:ADM IN Y Race: C Location: [place] [id number] Anesthesia Postop Eval I Sum Anesthesia Postop [...] MD Cosigner Signature: Date CC: Signed Normal [facility] Microscopic analysis of urin e for red blood cells (RBC)Ordered By: Lucretia Bear on 03-16-2025 Microscopic analysis of urine for red blood cells (RBC) 0 SEEN /hpf 0-5 [facility] Mucus LM Ql (Urine sed)Order ed By: Lucretia Bear on 03-16-2025 Mucus Ql (Urine sed) 0 SEEN /hpf [facility] Nitrite Test strip Ql (U)Ord ered By: Lucretia Bear on 03-16-2025 Nitrite Ql (U) Negative Negative [facility] O.R. Fluoro for C-Bentley 02-20 O.R. Fluoro for C-Arm [facility] Imaging Services [address] [place] [address] O.R. Fluoro for C-Arm MR#: [id number] Acct: [id number] Name: ALONDRA ARITA Rep #: [id number] : 1975 M 49 From: Chino Elliott MD PCP: Care Physician,No Primary Status: ADM IN Study: O.R. Fluoro for C-Arm Date of Exam: 03/16/25 Exam# [id number] Ordering Dr: Yevgeniy Sarah DO EXAM: ERCP [...] status post ERCP, as above. Reading Location: [id number] CC: No Primary Care Physician; Yevgeniy Sarah DO Network Operations Manager: Signed Normal [facility] Protein Test strip Ql (U)Ord ered By: Lucretia Bear on 03-16-2025 Protein Ql (U) Negative Negative [facility] Prothrombin Time w/INRon INR Coag (PPP) [Relative time] 1.0 {INR} Normal [facility] Comment on above: Performed By: #### L 300.8710 #### [facility] [address] [place], [address] PT Coag (PPP) [Time] 13.3 s Normal 11.7-14.9 [facility] Comment on above: Performed By: #### L 300.2665 #### [facility] [address] [place], [place], [address] Prothrombin timeOrdered By: Jose Guadalupe Puckett on 03-16-2025 PT Coag (PPP) [Time] 13.3 s 11.7-14.9 [facility] Serum or plasma albumin/glob ulin mass ratioOrdered By: Lucretia Bear on 03-16-2025 Albumin/Globulin [Mass ratio] 1.6 {ratio} 0.9-2.4 [facility] Squamous epithelial cells de tection in urine sediment by light microscopyOrdered By: Lucretia Bear on 03-16-2025 Epithelial cells.squamous LM Ql (Urine sed) 0 SEEN /hpf 0-5 [facility] Urinalysis, Completeon 03-16 BACTERIA 0 SEEN Normal None Seen [facility] Comment on above: Order Comment: HOA CTOR TO SPECIFY Performed By: #### L 400.0001 ####[facility] [address] [place], [place], [phone] EPI,SQUAMOUS 0 SEEN Normal 0-5 [facility] Comment on above: Order Comment: HOA CTOR TO SPECIFY Performed By: #### L 400.0001 ####[facility] [address] [facility] [address] Mucus Ql (Urine sed) 0 SEEN Normal [facility] Comment on above: Order Comment: HOA CTOR TO SPECIFY Performed By: #### L 400.0001 ####[facility] [address] [place], [address] RBC 0 SEEN Normal 0-5 [facility] Comment on above: Order Comment: HOA CTOR TO SPECIFY Performed By: #### L 400.0001 ####[facility] [address] [place], [address] WBC 0 SEEN Normal 0-5 [facility] Comment on above: Order Comment: HOA CTOR TO SPECIFY Performed By: #### L 400.0001 ####[facility] [address] [place], [address] Urine clarityOrdered By: Celestina Bear on 03-16-2025 Clarity (U) Sl. Cloudy Clear [facility] Urine color determinationOrd ered By: Lucretia Bear on 03-16-2025 Color (U) Yellow Yellow [facility] Urine glucose detectionOrder ed By: Lucretia Bear on 03-16-2025 Glucose Ql (U) Normal mg/dl Normal [facility] Urine leukocyte esterase det ection by dipstickOrdered By: Lucretia Bear on 03-16-2025 Leukocyte esterase Test strip Ql (U) Negative Negative [facility] Urine pHOrdered By: Lucretia henry on 03-16-2025 pH (U) 6.0 [pH] 5.0 - 8.0 [facility] Urine sediment bacteria coun t by microscopy (number/high power field)Ordered By: Lucretia Bear on 03-16-2025 Bacteria LM.HPF (Urine sed) [#/Area] 0 /[HPF] None Seen [facility] Urine specific gravity measu rementOrdered By: Lucretia Bear on 03-16-2025 Specific gravity (U) [Rel density] 1.010 1.002-1.030 [facility] Urine urobilinogen measureme ntOrdered By: Lucretia Bear on 03-16-2025 Urobilinogen Ql (U) Normal mg/dl Normal [facility] White blood cell countOrdere d By: Lucretia Bear on 03-16-2025 White blood cell count 0 SEEN /hpf 0-5 [facility] Vital Signs Date Time Vital Sign Value Performing Clinician Kimmy stearns 03-23-2025 08:49-0400 Body height 170.18 cm No Primary Care Physician [facility] 03-23-2025 08:49-0400 Body mass index (BMI) [Ratio] 36.2 kg/m2 No Primary Care Physician [facility] 03-23-2025 08:49-0400 Body temperature 97.2 [degF] No Primary Care Physician [facility] 03-23-2025 08:49-0400 Body weight 105 kg No Primary Care Physician [facility] 03-23-2025 08:49-0400 Diastolic blood pressure 74 mm[Hg] No Primary Care Physician [facility] 03-23-2025 08:49-0400 Heart rate 78 /min No Primary Care Physician [facility] 03-23-2025 08:49-0400 Respiratory rate 18 /min No Primary Care Physician [facility] 03-23-2025 08:49-0400 SaO2% (BldA) [Mass fraction] 99 % No Primary Care Physician [facility] 03-23-2025 08:49-0400 Systolic blood pressure 108 mm[Hg] No Primary Care Physician [facility] 03-20-2025 08:56-0400 Body temperature 97.7 [degF] No Primary Care Physician [facility] 03-20-2025 08:56-0400 Diastolic blood pressure 52 mm[Hg] No Primary Care Physician [facility] 03-20-2025 08:56-0400 Heart rate 76 /min No Primary Care Physician [facility] 03-20-2025 08:56-0400 Respiratory rate 16 /min No Primary Care Physician [facility] 03-20-2025 08:56-0400 SaO2% (BldA) [Mass fraction] 93 % No Primary Care Physician [facility] 03-20-2025 08:56-0400 Systolic blood pressure 95 mm[Hg] No Primary Care Physician [facility] 03-18-2025 06:00-0400 Body mass index (BMI) [Ratio] 26 kg/m2 No Primary Care Physician [facility] 03-18-2025 06:00-0400 Body weight 107.2 kg No Primary Care Physician [facility] 03-16-2025 13:04-0400 Body height 203.2 cm No Primary Care Physician [facility] Encounters Encounter Date Encounter Type Care Provider Facility Start: 04-04-2025 End: 04-04-2025 ambulatory No Primary Care Physician Facility:[facility] Start: 03-23-2025 End: 03-23-[address] Abbie Philip MD -[facility] Work Phone: Start: 03-23-2025 End: 03-23-2025 ambulatory No Primary Care Physician -[facility] Start: 03-18-2025 Non-patient / Non-visit Dr. Jose Guadalupe Puckett MD -[facility] Work Phone: Start: 03-17-2025 Non-patient / Non-visit Dr. Jose Guadalupe Puckett MD -[facility] Work Phone: Start: 03-16-2025 Non-patient / Non-visit Yevgeniy Soliman nd DO -[facility] Start: 03-16-2025 Non-patient / Non-visit Dr. Jose Guadalupe Puckett MD -[facility] Work Phone: Start: 03-16-2025 ambulatory [...] Activity Detail Author Start: 03-18-[address] [facility] Start: 03-16-2025 Application of inter mittent pneumatic compression device [facility] Start: 03-16-2025 Ambulation without limitation [facility] Start: 03-16-2025 Assessment of risk o f venous thromboembolism [facility] Start: 03-16-2025 Insertion of cathete r into peripheral vein [facility] Start: 03-16-2025 Measuring intake and output [facility] Start: 03-16-2025 Oxygen therapy [facility] Start: 03-16-2025 Providing care accor ding to standard [facility] Start: 03-16-2025 Provision of activit y privileges [facility] Start: 03-16-2025 Referral for physica l therapy [facility] Start: 03-16-2025 Referral to gastroen terology service [facility] Start: 03-16-2025 Referral to occupati onal therapist [facility] Start: 03-16-2025 Following clinical p athway protocol [facility] Start: 03-16-2025 End: 03-16-2025 [facility] Start: 03-16-2025 Admission procedure [facility] Patient Education Soft Diet Ch D c Low-Fat Cooking Tips Soft [place]assen Diet Dc [facility] Work Phone: Immunizations Immunization Date Immunization Notes Care Provider Fa cility 03-17-2025 influenza, seasonal, injectable, preservative free No Primary Care Physician [facility] Payers Date Payer Category Payer Self-pay 2025 Unknown [id number] Unknown [id number] 2.16.8 [id number] Unknown [id number] 2.16.8 [id number] Unknown [id number] 2.16.8 [id number] Unknown [id number] 2.16.8 [id number] Unknown [id number] 2.16.8 [id number] Unknown [id number] 2.16.8 [id number] Unknown [id number] 2.16.8 [id number] Unknown [id number] 2.16.8 [id number] Social History Date Type Detail Facility Start: 03-16-2025 End: 03-23-2025 Tobacco smoking status NHIS Never smoked tobacco (finding) [facility] Sex Male [facility] Start: 1975 Sex Assigned At Male [facility] Medical Equipment Procedure Code Equipment Code Equipment [...] Assessment Result Facility 03-18-2025 Functional status Ambulates [facility] Work Phone: Mental Status Date Assessment Result Facility 03-18-2025 Cognitive function Voice/Name [facility] Work Phone: Clinical Notes 03-16-2025 to 04-04-2025 Note Date & Type Note Facility 04-04-2025 Note [facility] Medical Records Department [address] [place] [address] History Physical Exam 04/04/25 1154 MR#: [id number] Acct: [id number] Name: ALONDRA ARITA Rep #: [id number] : 1975 49 From: Abbie Philip MD PCP: Care Physician,No Primary Status:[facility] Location: [place] [address] History and Physical Date of Admission: 04/04/25 Date of Service: 03/23/25 MR#: [id number] Acct: [id number] Name: ALONDRA ARITA Rep #: [id number] : 1975 Provider: Dr. Abbie Philip MD Age/Sex: 49/M Location: [facility] Status: Signed Intake Vital Signs 03/16/2513:04 03/23/2508:49 [...] healthy appearing, comfortable and no acute distress [facility] Head: normocephalic and atraumatic Neck Neck: [...] the procedure: Robotic/la (more content not included)... [facility] 03-18-2025 Consult note [facility] 03-18-2025 Procedure note [facility] 03-18-2025 Procedure note [facility] 03-18-2025 Discharge summary Note Date/Time March 18, 2025 9:46am [facility] Medical Records Department [address] [place] [address] Discharge Summary 03/18/25 0940 MR#: [id number] Acct: [id number] Name: ALONDRA ARITA Rep #:[id number] : 1975 49 From: Jose Guadalupe White PCP: Care Physician,No Primary Status :ADM IN Location: [place] [address] Providers Date of Admission: 03/16/25 Date of [...] of choledocholithiasis: Patient is being admitted to [facility] floor. RUQ sonogram shows cholelithiasis without signs [...] shock if needed Total time spent in jzta-gi-tkqn encounter in discussion of advanced directive 17 [...] (Auto) 75.9 H, Lymph % (Auto) 17.5 L,Citrus % (Auto) 4.8, Eos % (Auto) 1.0, [...] Sl. Cloudy, Urine pH 6.0, Ur Specific Freer 1.010, Urine Protein Negative, Urine Glucose (UA) [...] (Auto) 83.5 H, Lymph % (Auto) 12.9 L,Citrus % (Auto) 3.1, Eos % (Auto) 0.0, [...] to confirm stability possibly helpful. Reading Location: [id number] Medications at Discharge Home Medications amoxicillin 875 [...] without an obstructing lesion seen. Reading Location: [facility] Abdomen/Pelvis CT 03/16/25 12:05 IMPRESSION: Fatty liver. Well-defined lesion right lobe of liver favor focal nodular hyperplasia. Follow-up MR of the abdomen with Eovist in 4-6 months to confirm stability possibly helpful. Reading Location: [facility] C-Arm Fluoroscopy 03/16/25 15:55 IMPRESSION: Intraoperative fluoroscopy status post ERCP, as above. Reading Location: [facility] ERCP X-Ray 03/16/25 15:55 IMPRESSION: Intraoperative fluoroscopy status post ERCP, as above. Reading Location: [facility] Physical Exam Narrative Seen and examined. [...] Alex Instructions Additional Instructions / Restrictions: Advised zyxe-zpn-nqlphmz Tylenol 500 mg to 1000 mg Q6 hourly as needed for fevermore than 102 Fahrenheit and moderate to severe pain respectively. Chwq-llw-jsmwbsq, probiotic, lactobacillus/acidophilus 1 tablet twice daily for [...] Self Care Charges/Coding Visit Charges Inpatient E&M: 89318 Disch Hosp >30min 03/18/25 0946 <Electronically signed by Jose Guadalupe Puckett MD> Cosigner Signature (if applicable): CC: Dr. Jose Guadalupe Puckett MD; Dr. Abbie Philip MD; No Primary Care Physician;Yevgeniy Sarah DO~ Signed [facility] Work Phone: 1(653) 119-875109-28-2025 Discharge summary Author Jose Guadalupe Puckett [facility] Note Date/Time March 18, 2025 9:40am [facility] Medical Records Department [address] [place] [address] Instructions for Home/Discharge Instructions 03/18/25934 MR#: [id number] Acct: [id number] Name: ALONDRA ARITA Rep #:[id number] : 1975 49 From: Jose Guadalupe White [...] Alex Instructions Additional Instructions / Restrictions: Advised tvkf-vyi-tsarqgg Tylenol 500 mg to 1000 mg Q6 hourly as needed for fevermore than 102 Fahrenheit and moderate to severe pain respectively. Izlf-upc-ltvdphw, probiotic, lactobacillus/acidophilus 1 tablet twice daily for [...] Guadalupe Puckett MD>Jose Guadalupe Puckett MD CC: MANAGER CLINICAL PHARMACYMaliha Green; JACOBO-C Apolonia Pavon; Dr. Jose Guadalupe Puckett MD; MERE Mcpherson; No Primary Care Physician; Yevgeniy Sarah, DO ~ Signed [facility] Work Phone: 1(373) 717-876909-28-2025 Discharge summary [facility] Medical Records Department [address] [place] [address] Discharge Summary 03/18/25 0940 MR#: [id number] Acct: [id number] Name: ALONDRA ARITA Rep #:[id number] : 1975 49 From: Jose Guadalupe White PCP: Care Physician,No Primary Status :ADM IN Location: [place] [address] Providers Date of Admission: 03/16/25 Date of [...] shock if needed Total time spent in qbed-ck-ewwp encounter in discussion of advanced directive 17 [...] (Auto) 75.9 H, Lymph % (Auto) 17.5 L,Citrus % (Auto) 4.8, Eos % (Auto) 1.0, [...] Sl. Cloudy, Urine pH 6.0, Ur Specific Freer 1.010, Urine Protein Negative, Urine Glucose (UA) [...] (Auto) 83.5 H, Lymph % (Auto) 12.9 L,Citrus % (Auto) 3.1, Eos % (Auto) 0.0, [...] to confirm stability possibly helpful. Reading Location: [facility] Medications at Discharge Home Medications amoxicillin 875 [...] without an obstructing lesion seen. Reading Location: [facility] Abdomen/Pelvis CT 03/16/25 12:05 IMPRESSION: Fatty liver. Well-defined lesion right lobe of liver favor focal nodular hyperplasia. Follow-up MR of the abdomen with Eovist in 4-6 months to confirm stability possibly helpful. Reading Location: [facility] C-Arm Fluoroscopy 03/16/25 15:55 IMPRESSION: Intraoperative fluoroscopy status post ERCP, as above. Reading Location: [id number] ERCP X-Ray 03/16/25 15:55 IMPRESSION: Intraoperative fluoroscopy status post ERCP, as above. Reading Location: [facility] Physical Exam Narrative Seen and examined. [...] Alex Instructions Additional Instructions / Restrictions: Advised ofvd-ywy-udjoozn Tylenol 500 mg to 1000 mg Q6 hourly as needed for fevermore than 102 Fahrenheit and moderate to severe pain respectively. Qfki-lev-dzowtsw, probiotic, lactobacillus/acidophilus 1 tablet twice daily for [...] Self Care Charges/Coding Visit Charges Inpatient E&M: 91206 Disch Hosp >30min 03/18/25 0946 Cosigner Signature (if applicable): CC: Dr. Jose Guadalupe Puckett MD; Dr. Abbie Philip MD; No Primary Care Physician;Yevgeniy Sarah DO~ Signed [facility]09-28-2025 Discharge summary [facility] Medical Records Department [address] [place] [address] Instructions for Home/Discharge Instructions 03/18/25 0935 MR#: [id number] Acct: [id number] Name: ALONDRA ARITA Rep #:[id number] : 1975 49 From: Jose Guadalupe White [...] Alex Instructions Additional Instructions / Restrictions: Advised thih-ozu-wgqatsh Tylenol 500 mg to 1000 mg Q6 hourly as needed for fevermore than 102 Fahrenheit and moderate to severe pain respectively. Scna-kzj-jrdycrv, probiotic, lactobacillus/acidophilus 1 tablet twice daily for [...] Care 03/18/25 09Jose Guadalupe Puckett MD CC: MANAGER CLINICAL PHARMACYMaliha Green; MANAGER CLINICAL PHARMACYMaliha Pavon; Dr. Jose Guadalupe Puckett MD; MERE Mcpherson; No Primary Care Physician; Yevgeniy Sarah DO ~ Signed [facility]09-28-2025 [facility] Medical Records Department [address] [place] [address] Discharge Summary 03/18/25939 MR#: [id number] Acct: [id number] Name: ALONDRA ARITA Rep #: [id number] : 1975 49 From: Jose Guadalupe Puckett MD PCP: Care Physician,No Primary Status:ADM IN [facility] Prov[facility] Date of Admission: 03/16/25 Date of [...] of choledocholithiasis: Patient is being admitted to [facility] floor. RUQ sonogram shows cholelithiasis without signs [...] feed, ventilator and/chest co (more content not included)...[facility]09-27-2025 Discharge summary Author Lucretia Bear [facility] Note Date/Time March 17, 2025 3:21pm [facility] Medical Records Department [address] [place] [address] Emergency Department Summary 03/16/25 MR#: [id number] Acct: [id number] Name: ALONDRA ARITA Rep #:[id number] : 1975 49 From: Lucretia Albert PCP: Care Physician,No Primary Status :ADM IN Location: [facility] BV094-0 HPI HPI - GI History of Present [...] other complaints or concerns at this time [facility] Medical History GERD (gastroesophageal reflux disease) [...] 75.9 H Lymph % (Auto) 17.5 L Citrus % (Auto) 4.8 Eos % (Auto) 1.0 [...] Sl. Cloudy Urine pH 6.0 Ur Specific Freer 1.010 Urine Protein Negative Urine Glucose (UA) [...] without an obstructing lesion seen. Reading Location: [facility] Abdomen/Pelvis CT 03/16/25 12:05 IMPRESSION: Fatty liver. Well-defined lesion right lobe of liver favor focal nodular hyperplasia. Follow-up MR of the abdomen with Eovist in 4-6 months to confirm stability possibly helpful. Reading Location: [facility] Rhythm Strip Rhythm Strip: Sinus Rhythm Rate: 76 Ectopy: None EKG Initial EKG: Attestation: I personally reviewed and interpreted this EKG as follows: Interpretation: Sinus Rhythm Comments: Normal sinus rhythm rate of 76 bpm with sinus arrhythmia Normal axis Normal intervals Normal ST segments Management Discussion w/another healthcare provider: Hospitalist and Mysql Developer Discharge Plan Dx/Rx/DC Orders Clinical Impression: Cholelithiasis with acute on chronic cholecystitis Disposition Disposition: Acute Care Hospital [facility] Discharge Date/Time: 03/16/25 12:44 What to do if you have Problems For any increased pain, shortness of breath, bleeding, nausea or vomiting, chestpain, or any unexpected problems, contact your Primary Care Provider. Call [facility] ([phone]) or report to the closest Emergency Room. Call 911 if necessary. 03/17/25 1521 <Electronically signed by Lucretia Bear DO> Cosigner Signature (if applicable): CC: No Primary Care Physician ~ Signed [facility] Work Phone: 1(144) 545-492109-27-2025 Discharge summary [facility] Medical Records Department [address] [place] [address] Emergency Department Summary 03/16/25 MR#: [id number] Acct: [id number] Name: ALONDRA ARITA Rep #:[id number] : 1975 49 From: Lucretia Albert PCP: Care Physician,No Primary Status :ADM IN Location: [facility] [id number] HPI HPI - GI History of Present [...] other complaints or concerns at this time [facility] Medical History GERD (gastroesophageal reflux disease) [...] 75.9 H Lymph % (Auto) 17.5 L Citrus % (Auto) 4.8 Eos % (Auto) 1.0 [...] Sl. Cloudy Urine pH 6.0 Ur Specific Freer 1.010 Urine Protein Negative Urine Glucose (UA) [...] without an obstructing lesion seen. Reading Location: [id number] Abdomen/Pelvis CT 03/16/25 12:05 IMPRESSION: Fatty liver. Well-defined lesion right lobe of liver favor focal nodular hyperplasia. Follow-up MR of the abdomen with Eovist in 4-6 months to confirm stability possibly helpful. Reading Location: [id number] Rhythm Strip Rhythm Strip: Sinus Rhythm Rate: 76 Ectopy: None EKG Initial EKG: Attestation: I personally reviewed and interpreted this EKG as follows: Interpretation: Sinus Rhythm Comments: Normal sinus rhythm rate of 76 bpm with sinus arrhythmia Normal axis Normal intervals Normal ST segments Management Discussion w/another healthcare provider: Hospitalist and Mysql Developer Discharge Plan Dx/Rx/DC Orders Clinical Impression: Cholelithiasis with acute on chronic cholecystitis Disposition Disposition: Acute Care Hospital [facility] Discharge Date/Time: 03/16/25 12:44 What to do if you have Problems For any increased pain, shortness of breath, bleeding, nausea or vomiting, chestpain, or any unexpected problems, contact your Primary Care Provider. Call [facility] ([phone]) or report tothe closest Emergency Room. Call 911 if necessary. 03/17/25 1521 Cosigner Signature (if applicable): CC: No Primary Care Physician ~ Signed [facility]09-27-2025 Progress note Author Jose Guadalupe Puckett [facility] Note Date/Time March 17, 2025 1:02pm [facility] Medical Records Department [address] [place] [address] Progress Note - Hospitalist 03/17/25 0754 MR#: [id number] Acct: [id number] Name: ALONDRA ARITA Rep #:[id number] : 1975 49 From: Jose Guadalupe White PCP: Care Physician,No Primary Status :ADM IN Location: [place] [address] Reason for Visit Chief Complaint: Right upper [...] (Auto) 75.9 H, Lymph % (Auto) 17.5 L,Citrus % (Auto) 4.8, Eos % (Auto) 1.0, [...] Sl. Cloudy, Urine pH 6.0, Ur Specific Freer 1.010, Urine Protein Negative, Urine Glucose (UA) [...] (Auto) 83.5 H, Lymph % (Auto) 12.9 L,Citrus % (Auto) 3.1, Eos % (Auto) 0.0, [...] without an obstructing lesion seen. Reading Location: [facility] Abdomen/Pelvis CT 03/16/25 12:05 IMPRESSION: Fatty liver. Well-defined lesion right lobe of liver favor focal nodular hyperplasia. Follow-up MR of the abdomen with Eovist in 4-6 months to confirm stability possibly helpful. Reading Location: [id number] C-Arm Fluoroscopy 03/16/25 15:55 IMPRESSION: Intraoperative fluoroscopy status post ERCP, as above. Reading Location: [id number] ERCP X-Ray 03/16/25 15:55 IMPRESSION: Intraoperative fluoroscopy status post ERCP, as above. Reading Location: [facility] Rhythm Strip Rhythm Strip: Sinus Rhythm [...] shock if needed Total time spent in ccpl-ja-zint encounter in discussion of advanced directive 17 minutes. Laboratory Results 03/16/25 09:54: WBC 9.0, RBC 5.93, Hgb 17.0 H, Hct 48.0, MCV 80.9, MCH 28.7, MCHC 35.4, RDW Std Deviation 37.0, RDW Coeff of Ghulam 12.7, Plt Count 237, MPV 10.6, Immature Gran % (Auto) 0.400, Neut % (Auto) 75.9 H, Lymph % (Auto) 17.5 L,Citrus % (Auto) 4.8, Eos % (Auto) 1.0, [...] Sl. Cloudy, Urine pH 6.0, Ur Specific Freer 1.010, Urine Protein Negative, Urine Glucose (UA) [...] (Auto) 83.5 H, Lymph % (Auto) 12.9 L,Citrus % (Auto) 3.1, Eos % (Auto) 0.0, [...] to confirm stability possibly helpful. Reading Location: [id number] Charges/Coding Visit Charges Inpatient E&M: 83853 Subs Hosp L2 03/17/25 1301 <Electronically signed by Jose Guadalupe Puckett MD> Cosigner Signature (if applicable): CC: ~ Signed [facility] Work Phone: 1(882) 451-680209-27-2025 Progress note [facility] Medical Records Department [address] [place] [address] Progress Note - Hospitalist 03/17/25 2935 MR#: [id number] Acct: [id number] Name: ALONDRA ARITA Rep #:[id number] : 1975 49 From: Jose Guadalupe Italo M D PCP: Care Physician,No Primary Status :ADM IN Location: [facility] FO134-0 Reason for Visit Chief Complaint: Right upper [...] (Auto) 75.9 H, Lymph % (Auto) 17.5 L,Citrus % (Auto) 4.8, Eos % (Auto) 1.0, [...] Sl. Cloudy, Urine pH 6.0, Ur Specific Freer 1.010, Urine Protein Negative, Urine Glucose (UA) [...] (Auto) 83.5 H, Lymph % (Auto) 12.9 L,Citrus % (Auto) 3.1, Eos % (Auto) 0.0, [...] without an obstructing lesion seen. Reading Location: [facility] Abdomen/Pelvis CT 03/16/25 12:05 IMPRESSION: Fatty liver. Well-defined lesion right lobe of liver favor focal nodular hyperplasia. Follow-up MR of the abdomen with Eovist in 4-6 months to confirm stability possibly helpful. Reading Location: [facility] C-Arm Fluoroscopy 03/16/25 15:55 IMPRESSION: Intraoperative fluoroscopy status post ERCP, as above. Reading Location: [facility] ERCP X-Ray 03/16/25 15:55 IMPRESSION: Intraoperative fluoroscopy status post ERCP, as above. Reading Location: [facility] Rhythm Strip Rhythm Strip: Sinus Rhythm [...] of choledocholithiasis: Patient is being admitted to [facility] floor. RUQ sonogram shows cholelithiasis without signs [...] shock if needed Total time spent in zxrx-wv-gais encounter in discussion of advanced directive 17 minutes. Laboratory Results 03/16/25 09:54: WBC 9.0, RBC 5.93, Hgb 17.0 H, Hct 48.0, MCV 80.9, MCH 28.7, MCHC 35.4, RDW Std Deviation 37.0, RDW Coeff of Ghulam 12.7, Plt Count 237, MPV 10.6, Immature Gran % (Auto) 0.400, Neut % (Auto) 75.9 H, Lymph % (Auto) 17.5 L,Citrus % (Auto) 4.8, Eos % (Auto) 1.0, [...] Sl. Cloudy, Urine pH 6.0, Ur Specific Freer 1.010, Urine Protein Negative, Urine Glucose (UA) [...] (Auto) 83.5 H, Lymph % (Auto) 12.9 L,Citrus % (Auto) 3.1, Eos % (Auto) 0.0, [...] to confirm stability possibly helpful. Reading Location: [id number] Charges/Coding Visit Charges Inpatient E&M: 17685 Subs Hosp L2 03/17/25 1302 Cosigner Signature (if applicable): CC: ~ Signed [facility]09-26-2025 Radiology Diagnostic study note [facility] Imaging Services [address] [place], [place] [address] ERCP Biliary Only MR#: [id number] Acct: [id number] Name: ALONDRA ARITA Rep #: [id number] : 1975 M 49 From: Tesfaye Elliott MD PCP: Care Physician,No Primary Status: ADM IN Study:ERCP Biliary Only Date of Exam: Exam# [id number] Ordering Dr: Lobito Sarah DO EXAM: ERCP [...] Primary Care Physician; Yevgeniy Sarah DO ~ Network Operations Manager: Signed [facility]09-26-2025 Radiology Diagnostic study note [facility] Imaging Services [address] [place], [place] [id number] O.R. Fluoro for C-Arm MR#: [id number] Acct: [id number] Name: ALONDRA ARITA Rep #: [id number] : 1975 M 49 From: Tesfaye Elliott MD PCP: Care Physician,No Primary Status: ADM IN Study:O.R. Fluoro for C-Arm Date of Exam: 03/16/25 Exam# [id number] Ordering Dr: Lobito Sarah DO EXAM: ERCP [...] status post ERCP, as above. Reading Location: [id number] CC: No Primary Care Physician; DO Funmilayo Hood Network Operations Manager: Signed [facility]09-26-2025 Consult note Author Armando Gomez [facility] Note Date/Time March 18, 2025 12:45pm [facility] Medical Records Department [address] [place] [address] Anesthesia Postop Eval II 03/16/251654 MR#: [id number] Acct: [id number] Name: ALONDRA ARITA Rep #:[id number] : 1975 49 From: Armando White PCP: Care Physician,No Primary Status :ADM IN Y Race: C Location: [place] [address] Anesthesia Postop Eval I Sum Anesthesia Postop [...] Armando Galaviz Signature: Date CC: ~ Signed [facility] Work Phone: 1(386) 633-309409-26-2025 Consult note Author Yevgeniy Sarah [facility] Note Date/Time March 16, 2025 3:40pm [facility] Medical Records Department [address] [place] [address] Consultation - GI 03/16/25 1537 MR#: [id number] Acct: [id number] Name: ALONDRA ARITA Rep #:[id number] : 1975 49 From: Yevgeniy Sarah DO PCP: Care Physician,No Primary Status :ADM IN Location: [facility] [id number] HPI Consult Data Date of Consult: 03/16/25 [...] and chalupa) around 6 PM and then daodog70 PM had a cold cut sandwich and [...] (Auto) 75.9 H, Lymph % (Auto) 17.5 L,Citrus % (Auto) 4.8, Eos % (Auto) 1.0, [...] Sl. Cloudy, Urine pH 6.0, Ur Specific Freer 1.010, Urine Protein Negative, Urine Glucose (UA) [...] without an obstructing lesion seen. Reading Location: [facility] Abdomen/Pelvis CT 03/16/25 12:05 IMPRESSION: Fatty liver. Well-defined lesion right lobe of liver favor focal nodular hyperplasia. Follow-up MR of the abdomen with Eovist in 4-6 months to confirm stability possibly helpful. Reading Location: [id number]-DM Assessment & Plan Assessment/Plan (1) Cholelithiasis with [...] Lipase 50. Charges/Coding Visit Charges Inpatient E&M: 27931 Init Hosp L3 03/16/25 1540 <Electronically signed by Yevgeniy Friend DO> Cosigner Signature (if applicable): CC: No Primary Care Physician~ Signed [facility] Work Phone: 1(752) 486-768609-26-2025 Consult note Author Armando Gomez [facility] Note Date/Time March 16, 2025 2:34pm [facility] Medical Records Department [address] [place] [address] Pre-Anesthesia Evaluation 03/16/25 1433 MR#: [id number] Acct: [id number] Name: ALONDRA ARITA Rep #:[id number] : 1975 49 From: Armando White PCP: Care Physician,No Primary Status :ADM IN Y Race: C Location: [place] [address] ASA Classification* ASA Classification ASA Classification: 1 [...] Procedure(s): ERCP Anesthesia History Anesthesia History - training and development head: Anesthesia History - training and development head Hx Hospitalization Any Problems With Anesthesia No [...] take am of surgery PONV PONV - training and development head: PONV - training and development head Female HX of Motion Sickness HX of N/V After Surgery Non-Smoker Duration of Surgery greater than 60 minutes Number of Risk Factors PONV Score Height & Weight Height & Weight: Anesthesia: Height & Weight Height 6 ft 8 in 03/16/25 13:04 Weight: 106.141 kg 03/16/25 13:04 Body Mass Index (BMI) 25.7 03/16/25 13:04 Respiratory Assessment Respiratory Assessment - training and development head: Respiratory Tract Infection Hx - training and development head Hx Respiratory Tract Infection No 03/16/25 13:51 STOP Sleep Apnea STOP Sleep Apnea - training and development head: STOP Sleep Apnea - training and development head Hx Hypertension No 03/16/25 13:53 Hx Sleep [...] Tobacco Use History Tobacco Use History - training and development head: Tobacco Use History - training and development head Tobacco Use Smoking Status Never smoker 03/16/25 13:04 Hx Tobacco Use No 03/16/25 13:04 Years Smoking Packs Smoked per Day Smoking Cessation Date was within the last 15 years Hx Smoking Cessation Date Hx Smoking Cessation Counseling Hematologic Medial History Hematologic Hx - training and development head: Hematologic Medical Hx - pmo lead Hx of Blood Transfusion No 03/16/25 13:04 [...] confused, unrespo /Reproduction History /Reproductive History - training and development head: /Reproductive Hx- training and development head Hx Now No 03/16/25 13:51 Gestational Age [...] mls @ 15 mls/hr 03/16/25 13:09 IV .[id number] PRN Saline Flush Sodium Chloride 250 mls @ 15 mls/hr 03/16/25 13:09 IV .[id number] PRN Additional IVPB Infusion Piperacillin Sod/Tazobactam 50 mls @ 12.5 mls/hr 03/16/25 13:30 03/16/25 13:40 Sod 3.375 gm/ Sodium Chloride IV 12.5 mls/hr Q8 DIA Administration Sodium Chloride 1,000 mls @ 75 mls/hr 03/16/25 13:32 03/16/25 13:43 IV 03/17/25 16:11 75 mls/hr .[id number] DIA Administration Influenza Virus Vacc Trival Recomb [...] MD Cosigner Signature: Date CC: ~ Signed [facility] Work Phone: 1(967) 505-597309-26-2025 History and physical note Author Jose Guadalupe Puckett [facility] Note Date/Time March 16, 2025 2:14pm [facility] Medical Records Department [address] [place] [address] H&P Exam - Hospitalist 03/16/25 1334 MR#: [id number] Acct: [id number] Name: ALONDRA ARITA Rep #:[id number] : 1975 49 From: Jose uGadalupe White PCP: Care Physician,No Primary Status :ADM IN Location: [place] 293915-1 HPI - General General Date of Admission: [...] dilatation, liver lesion, described in assessment plan. [facility] Medical History GERD (gastroesophageal reflux disease) [...] (Auto) 75.9 H, Lymph % (Auto) 17.5 L,Citrus % (Auto) 4.8, Eos % (Auto) 1.0, [...] Sl. Cloudy, Urine pH 6.0, Ur Specific Freer 1.010, Urine Protein Negative, Urine Glucose (UA) [...] without an obstructing lesion seen. Reading Location: [facility] Assessment & Plan Assessment/Plan (1) Cholelithiasis with acute on chronic cholecystitis: PLAN: Plan 49-year-old gentleman came to ED with right upper and epigastric abdominal pain since 1:30 AM today with nausea. 1. Acute on chronic GB colic with cholelithiasis with suspicion of choledocholithiasis: Patient is being admitted to [facility] floor. RUQ sonogram shows cholelithiasis without signs [...] shock if needed Total time spent in ziub-ht-znnx encounter in discussion of advanced directive 17 minutes. Laboratory Results 03/16/25 09:54: WBC 9.0, RBC 5.93, Hgb 17.0 H, Hct 48.0, MCV 80.9, MCH 28.7, MCHC 35.4, RDW Std Deviation 37.0, RDW Coeff of Ghulam 12.7, Plt Count 237, MPV 10.6, Immature Gran % (Auto) 0.400, Neut % (Auto) 75.9 H, Lymph % (Auto) 17.5 L,Citrus % (Auto) 4.8, Eos % (Auto) 1.0, [...] Sl. Cloudy, Urine pH 6.0, Ur Specific Freer 1.010, Urine Protein Negative, Urine Glucose (UA) [...] to confirm stability possibly helpful. Reading Location: [facility] Charges/Coding Visit Charges Inpatient E&M: 95180 Init Hosp L3 Procedures Hospitalists Procedures: 86651 Advncd Care Plan 30 Min 03/16/25 1414 <Electronically signed by Jose Guadalupe Puckett MD> Cosigner Signature (if applicable): CC: Dr. Jose Guadalupe Puckett MD; Dr. Abbie Philip MD; No Primary Care Physician;Yevgeniy Sarah DO~ Signed [facility] Work Phone: 1(310) 875-839809-26-2025 Consult note [facility] Medical Records Department [address] [place] [address] Consultation - GI 03/16/25 1537 MR#: [id number] Acct: [id number] Name: ALONDRA ARITA Rep #:[id number] : 1975 49 From: Yevgeniy Sarah DO PCP: Care Physician,No Primary Status :ADM IN Location: [place] 293915-1 HPI Consult Data Date of Consult: 03/16/25 [...] and chalupa) around 6 PM and then vvywmt82 PM had a cold cut sandwich and [...] (Auto) 75.9 H, Lymph % (Auto) 17.5 L,Citrus % (Auto) 4.8, Eos % (Auto) 1.0, [...] Sl. Cloudy, Urine pH 6.0, Ur Specific Freer 1.010, Urine Protein Negative, Urine Glucose (UA) [...] without an obstructing lesion seen. Reading Location: [id number] Abdomen/Pelvis CT 03/16/25 12:05 IMPRESSION: Fatty liver. Well-defined lesion right lobe of liver favor focal nodular hyperplasia. Follow-up MR of the abdomen with Eovist in 4-6 months to confirm stability possibly helpful. Reading Location: [id number] Assessment & Plan Assessment/Plan (1) Cholelithiasis with [...] Lipase 50. Charges/Coding Visit Charges Inpatient E&M: 20106 Init Hosp L3 03/16/25 1540 Cosigner Signature (if applicable): CC: No Primary Care Physician~ Signed [facility]09-26-2025 Evaluation note* Diagnosis Onset Date Resolution Status Admit Date Cholelithiasis with acute on chronic cholecystitis acute March 16, 2025 12:53pm [facility] Work Phone: 1(994) 534-113109-26-2025 Consult note [facility] Medical Records Department [address] [place] [address] Pre-Anesthesia Evaluation 03/16/25 1433 MR#: [id number] Acct: [id number] Name: ALONDRA ARITA Rep #:[id number] : 1975 49 From: Armando White PCP: Care Physician,No Primary Status :ADM IN Y Race: C Location: [place] 293915 -1 ASA Classification* ASA Classification ASA Classification: [...] Procedure(s): ERCP Anesthesia History Anesthesia History - training and development head: Anesthesia History - training and development head Hx Hospitalization Any Problems With Anesthesia No [...] take am of surgery PONV PONV - training and development head: PONV - training and development head Female HX of Motion Sickness HX of N/V After Surgery Non-Smoker Duration of Surgery greater than 60 minutes Number of Risk Factors PONV Score Height & Weight Height & Weight: Anesthesia: Height & Weight Height 6 ft 8 in 03/16/25 13:04 Weight: 106.141 kg 03/16/25 13:04 Body Mass Index (BMI) 25.7 03/16/25 13:04 Respiratory Assessment Respiratory Assessment - training and development head: Respiratory Tract Infection Hx - training and development head Hx Respiratory Tract Infection No 03/16/25 13:51 STOP Sleep Apnea STOP Sleep Apnea - training and development head: STOP Sleep Apnea - training and development head Hx Hypertension No 03/16/25 13:53 Hx Sleep [...] Tobacco Use History Tobacco Use History - training and development head: Tobacco Use History - training and development head Tobacco Use Smoking Status Never smoker 03/16/25 13:04 Hx Tobacco Use No 03/16/25 13:04 Years Smoking Packs Smoked per Day Smoking Cessation Date was within the last 15 years Hx Smoking Cessation Date Hx Smoking Cessation Counseling Hematologic Medial History Hematologic Hx - training and development head: Hematologic Medical Hx - pmo lead Hx of Blood Transfusion No 03/16/25 13:04 [...] confused, unrespo /Reproduction History /Reproductive History - training and development head: /Reproductive Hx- training and development head Hx Now No 03/16/25 13:51 Gestational Age [...] mls @ 15 mls/hr 03/16/25 13:09 IV .A50Q01H PRN Saline Flush Sodium Chloride 250 mls @ 15 mls/hr 03/16/25 13:09 IV .[id number] PRN Additional IVPB Infusion Piperacillin Sod/Tazobactam 50 mls @ 12.5 mls/hr 03/16/25 13:30 03/16/25 13:40 Sod 3.375 gm/ Sodium Chloride IV 12.5 mls/hr Q8 DIA Administration Sodium Chloride 1,000 mls @ 75 mls/hr 03/16/25 13:32 03/16/25 13:43 IV 03/17/25 16:11 75 mls/hr .X30Q53O DIA Administration Influenza Virus Vacc Trival Recomb [...] MD Cosigner Signature: Date CC: ~ Signed [facility]09-26-2025 History and physical note [facility] Medical Records Department [address] [place] [address] H&P Exam - Hospitalist 03/16/25 1334 MR#: [id number] Acct: [id number] Name: ALONDRA ARITA Rep #:[id number] : 1975 49 From: Jose Guadalupe White PCP: Care Physician,No Primary Status :ADM IN Location: [place] 293915-1 HPI - General General Date of Admission: [...] dilatation, liver lesion, described in assessment plan. [facility] Medical History GERD (gastroesophageal reflux disease) [...] (Auto) 75.9 H, Lymph % (Auto) 17.5 L,Citrus % (Auto) 4.8, Eos % (Auto) 1.0, [...] Sl. Cloudy, Urine pH 6.0, Ur Specific Freer 1.010, Urine Protein Negative, Urine Glucose (UA) [...] without an obstructing lesion seen. Reading Location: [id number] Assessment & Plan Assessment/Plan (1) Cholelithiasis with [...] shock if needed Total time spent in guzs-yc-tlzw encounter in discussion of advanced directive 17 minutes. Laboratory Results 03/16/25 09:54: WBC 9.0, RBC 5.93, Hgb 17.0 H, Hct 48.0, MCV 80.9, MCH 28.7, MCHC 35.4, RDW Std Deviation 37.0, RDW Coeff of Ghulam 12.7, Plt Count 237, MPV 10.6, Immature Gran % (Auto) 0.400, Neut % (Auto) 75.9 H, Lymph % (Auto) 17.5 L,Citrus % (Auto) 4.8, Eos % (Auto) 1.0, [...] Sl. Cloudy, Urine pH 6.0, Ur Specific Freer 1.010, Urine Protein Negative, Urine Glucose (UA) [...] to confirm stability possibly helpful. Reading Location: [id number] Charges/Coding Visit Charges Inpatient E&M: 24883 Init Hosp L3 Procedures Hospitalists Procedures: 97875 Advncd Care Plan 30 Min 03/16/25 1414 Cosigner Signature (if applicable): CC: Dr. Jose Guadalupe Puckett MD; Dr. bAbie Philip MD; No Primary Care Physician;Yevgeniy Keara, DO~ Signed [facility]09-26-2025 Radiology Diagnostic study note [facility] Imaging Services [address] [place] [address] CT Abd/Pelvis W/WO Contrast MR#: [id number] Acct: [id number] Name: ALONDRA ARITA Rep #: [id number] : 1975 M 49 From: Rizwan Ortega MD PCP: Care Physician,No Primary Status: ADM IN Study:CT Abd/Pelvis W/WO Contrast Date of Exa m: 03/16/25 Exam# [id number] Ordering Dr: Gillian Puckett MD PROCEDURE: CT [...] to confirm stability possibly helpful. Reading Location: [id number] CC: Dr. Jose Guadalupe Puckett MD; No Primary Care Physician ~ Network Operations Manager: Signed [facility]09-26-2025 Radiology Diagnostic study note [facility] Imaging Services [address] [place], [place] [address] Gallbladder MR#: [id number] Acct: [id number] Name: ALONDRA ARITA Rep #: [id number] : 1975 M 49 From: Pippa Ealry MD PCP: Care Physician,No Primary Status: REG ER Study:Gallbladder Date of Exam: 03/16/25 Exam# [id number] Ordering Dr: Amelia Bear DO PROCEDURE: GALLBLADDER [...] without an obstructing lesion seen. Reading Location: [facility] CC: Dr. Lucretia Bear, DO; No Primary Care Physician ~ Network Operations Manager: Signed [facility] Author Armando Gomez [facility] Note Date/Time March 16, 2025 2:34pm [facility] Medical Records Department [address] [place] [address] Pre-Anesthesia Evaluation 03/16/25 1433 MR#: [id number] Acct: [id number] Name: ALONDRA ARITA Rep #:[id number] : 1975 49 From: Armando White PCP: Care Physician,No Primary Status :ADM IN Race: C Location: [facility] MS315 -1 ASA Classification* ASA Classification ASA [...] Procedure(s): ERCP Anesthesia History Anesthesia History - training and development head: Anesthesia History - training and development head Hx Hospitalization Any Problems With Anesthesia No [...] take am of surgery PONV PONV - training and development head: PONV - training and development head Female HX of Motion Sickness HX of N/V After Surgery Non-Smoker Duration of Surgery greater than 60 minutes Number of Risk Factors PONV Score Height & Weight Height & Weight: Anesthesia: Height & Weight Height 6 ft 8 in 03/16/25 13:04 Weight: 106.141 kg 03/16/25 13:04 Body Mass Index (BMI) 25.7 03/16/25 13:04 Respiratory Assessment Respiratory Assessment - training and development head: Respiratory Tract Infection Hx - training and development head Hx Respiratory Tract Infection No 03/16/25 13:51 STOP Sleep Apnea STOP Sleep Apnea - training and development head: STOP Sleep Apnea - training and development head Hx Hypertension No 03/16/25 13:53 Hx Sleep [...] Tobacco Use History Tobacco Use History - training and development head: Tobacco Use History - training and development head Tobacco Use Smoking Status Never smoker 03/16/25 13:04 Hx Tobacco Use No 03/16/25 13:04 Years Smoking Packs Smoked per Day Smoking Cessation Date was within the last 15 years Hx Smoking Cessation Date Hx Smoking Cessation Counseling Hematologic Medial History Hematologic Hx - training and development head: Hematologic Medical Hx - pmo lead Hx of Blood Transfusion No 03/16/25 13:04 [...] confused, unrespo /Reproduction History /Reproductive History - training and development head: /Reproductive Hx- training and development head Hx Now No 03/16/25 13:51 Gestational Age [...] mls @ 15 mls/hr 03/16/25 13:09 IV .[id number] PRN Saline Flush Sodium Chloride 250 mls @ 15 mls/hr 03/16/25 13:09 IV .G11B50J PRN Additional IVPB Infusion Piperacillin Sod/Tazobactam 50 mls @ 12.5 mls/hr 03/16/25 13:30 03/16/25 13:40 Sod 3.375 gm/ Sodium Chloride IV 12.5 mls/hr Q8 DIA Administration Sodium Chloride 1,000 mls @ 75 mls/hr 03/16/25 13:32 03/16/25 13:43 IV 03/17/25 16:11 75 mls/hr .[id number] DIA Administration Influenza Virus Vacc Trival Recomb [...] MD Cosigner Signature: Date CC: ~ Signed [facility] Work Phone: Consult note Author Yevgeniy Friend [facility] Note Date/Time March 16, 2025 3:40pm [facility] Medical Records Department [address] [place] [address] Consultation - GI 03/16/25 1537 MR#: [id number] Acct: [id number] Name: ALONDRA ARITA Rep #:[id number] : 1975 49 From: Yevgeniy Sarah DO PCP: Care Physician,No Primary Status :ADM IN Location: [facility] XS624-7 HPI Consult Data Date of Consult: 03/16/25 [...] and chalupa) around 6 PM and then drwrdi77 PM had a cold cut sandwich and [...] (Auto) 75.9 H, Lymph % (Auto) 17.5 L,Citrus % (Auto) 4.8, Eos % (Auto) 1.0, [...] Sl. Cloudy, Urine pH 6.0, Ur Specific Freer 1.010, Urine Protein Negative, Urine Glucose (UA) [...] without an obstructing lesion seen. Reading Location: QMY-HEAXAS-JT Abdomen/Pelvis CT 03/16/25 12:05 IMPRESSION: Fatty liver. Well-defined lesion right lobe of liver favor focal nodular hyperplasia. Follow-up MR of the abdomen with Eovist in 4-6 months to confirm stability possibly helpful. Reading Location: [id number]-MO Assessment & Plan Assessment/Plan (1) Cholelithiasis with [...] Lipase 50. Charges/Coding Visit Charges Inpatient E&M: 38186 Init Hosp L3 03/16/25 1540 <Electronically signed by Yevgeniy Sarah DO> Cosigner Signature (if applicable): CC: No Primary Care Physician~ Signed [facility] Work Phone: Consult note Author Armando Gomez [facility] Note Date/Time March 18, 2025 12:45pm [facility] Medical Records Department [address] [place] [address] Anesthesia Postop Eval II 03/16/251654 MR#: [id number] Acct: [id number] Name: ALONDRA ARITA Rep #:[id number] : 1975 49 From: Armando White PCP: Care Physician,No Primary Status :ADM IN Y Race: C Location: [place] [address] Anesthesia Postop Eval I Sum Anesthesia Postop [...] Anesthesia Complication: No 03/16/251654 <Electronically signed by Amrando Gomez MD> Date _ Armando Galaviz Signature: Date CC: ~ Signed [facility] Work Phone: Discharge summary Author Lucretia Bear [facility] Note Date/Time March 17, 2025 3:21pm [facility] Medical Records Department [address] [place] [address] Emergency Department Summary 03/16/25 MR#: [id number] Acct: [id number] Name: ALONDRA ARITA Rep #:[id number] : 1975 49 From: Lucretia Albert PCP: Care Physician,No Primary Status :ADM IN Location: [facility] VO971-1 HPI HPI - GI History of Present [...] other complaints or concerns at this time [facility] Medical History GERD (gastroesophageal reflux disease) [...] 75.9 H Lymph % (Auto) 17.5 L Citrus % (Auto) 4.8 Eos % (Auto) 1.0 [...] Sl. Cloudy Urine pH 6.0 Ur Specific Freer 1.010 Urine Protein Negative Urine Glucose (UA) [...] without an obstructing lesion seen. Reading Location: YAU-[id number]-QZ Abdomen/Pelvis CT 03/16/25 12:05 IMPRESSION: Fatty liver. Well-defined lesion right lobe of liver favor focal nodular hyperplasia. Follow-up MR of the abdomen with Eovist in 4-6 months to confirm stability possibly helpful. Reading Location: [id number]-GH Rhythm Strip Rhythm Strip: Sinus Rhythm Rate: 76 Ectopy: None EKG Initial EKG: Attestation: I personally reviewed and interpreted this EKG as follows: Interpretation: Sinus Rhythm Comments: Normal sinus rhythm rate of 76 bpm with sinus arrhythmia Normal axis Normal intervals Normal ST segments Management Discussion w/another healthcare provider: Hospitalist and Mysql Developer Discharge Plan Dx/Rx/DC Orders Clinical Impression: Cholelithiasis with acute on chronic cholecystitis Disposition Disposition: Acute Care Hospital [facility] Discharge Date/Time: 03/16/25 12:44 What to do if you have Problems For any increased pain, shortness of breath, bleeding, nausea or vomiting, chestpain, or any unexpected problems, contact your Primary Care Provider. Call [facility] ([phone]) or report to the closest Emergency Room. Call 911 if necessary. 03/17/25 1521 <Electronically signed by Lucretia Bear DO> Cosigner Signature (if applicable): CC: No Primary Care Physician ~ Signed [facility] Work Phone: Discharge summary Author Jose Guadalupe Puckett [facility] Note Date/Time March 18, 2025 9:40am [facility] Medical Records Department [address] [place] [address] Instructions for Home/Discharge Instructions 03/18/25 0935 MR#: [id number] Acct: [id number] Name: ALONDRA ARITA Rep #:[id number] : 1975 49 From: Jose Guadalupe White [...] Alex Instructions Additional Instructions / Restrictions: Advised ndek-bte-hcttjzc Tylenol 500 mg to 1000 mg Q6 hourly as needed for fevermore than 102 Fahrenheit and moderate to severe pain respectively. Bzco-zto-flctgtr, probiotic, lactobacillus/acidophilus 1 tablet twice daily for [...] Care Physician; Yevgeniy Friend, DO ~ Signed [facility] Work Phone: Discharge summary Author Jose Guadalupe Puckett [facility] Note Date/Time March 18, 2025 9:46am [facility] Medical Records Department [address] [place] [address] Discharge Summary 03/18/25939 MR#: [id number] Acct: [id number] Name: ALONDRA ARITA Rep #:[id number] : 1975 49 From: Jose Guadalupe White PCP: Care Physician,No Primary Status :ADM IN Location: [place] [address] Providers Date of Admission: 03/16/25 Date of Discharge: 03/18/25 Primary Care Physician: No Primary Care Phys Consultations 03/16/25 13:32 Consult: Gastroenterology Routine Consulting Provider: [facility] Reason for Consult: choledocholithiasis EMERGENT Consult: [...] shock if needed Total time spent in qcre-np-vsyo encounter in discussion of advanced directive 17 [...] (Auto) 75.9 H, Lymph % (Auto) 17.5 L,Citrus % (Auto) 4.8, Eos % (Auto) 1.0, [...] Sl. Cloudy, Urine pH 6.0, Ur Specific Freer 1.010, Urine Protein Negative, Urine Glucose (UA) [...] (Auto) 83.5 H, Lymph % (Auto) 12.9 L,Citrus % (Auto) 3.1, Eos % (Auto) 0.0, [...] to confirm stability possibly helpful. Reading Location: [facility] Medications at Discharge Home Medications amoxicillin 875 [...] without an obstructing lesion seen. Reading Location: [facility] Abdomen/Pelvis CT 03/16/25 12:05 IMPRESSION: Fatty liver. Well-defined lesion right lobe of liver favor focal nodular hyperplasia. Follow-up MR of the abdomen with Eovist in 4-6 months to confirm stability possibly helpful. Reading Location: [facility] C-Arm Fluoroscopy 03/16/25 15:55 IMPRESSION: Intraoperative fluoroscopy status post ERCP, as above. Reading Location: [facility] ERCP X-Ray 03/16/25 15:55 IMPRESSION: Intraoperative fluoroscopy status post ERCP, as above. Reading Location: [facility] Physical Exam Narrative Seen and examined. [...] Alex Instructions Additional Instructions / Restrictions: Advised dqdw-njc-zmbisej Tylenol 500 mg to 1000 mg Q6 hourly as needed for fevermore than 102 Fahrenheit and moderate to severe pain respectively. Hjvm-uzi-qedzgju, probiotic, lactobacillus/acidophilus 1 tablet twice daily for [...] Self Care Charges/Coding Visit Charges Inpatient E&M: 21404 Disch Hosp >30min 03/18/25 0946 <Electronically signed by Jose Guadalupe Puckett MD> Cosigner Signature (if applicable): CC: Dr. Jose Guadalupe Puckett MD; Dr. Abbie Philip MD; No Primary Care Physician;Yevgeniy Sarah DO~ Signed [facility] Work Phone: Evaluation note* Diagnosis Onset Date Resolution Status Admit Date Cholelithiasis with acute on chronic cholecystitis acute March 16, 2025 12:53pm [facility] Work Phone: History and physical note Author Jose Guadalupe Puckett [facility] Note Date/Time March 16, 2025 2:14pm [facility] Medical Records Department [address] [place] [address] [place] [address] H&P Exam - Hospitalist 03/16/25 1334 MR#: [id number] Acct: [id number] Name: ALONDRA ARITA Rep #:[id number] : 1975 49 From: Jose Guadalupe White PCP: Care Physician,No Primary Status :ADM IN Location: [facility] [id number] HPI - General General Date of Admission: [...] dilatation, liver lesion, described in assessment plan. [facility] Medical History GERD (gastroesophageal reflux disease) [...] (Auto) 75.9 H, Lymph % (Auto) 17.5 L,Citrus % (Auto) 4.8, Eos % (Auto) 1.0, [...] Sl. Cloudy, Urine pH 6.0, Ur Specific Freer 1.010, Urine Protein Negative, Urine Glucose (UA) [...] without an obstructing lesion seen. Reading Location: [facility] Assessment & Plan Assessment/Plan (1) Cholelithiasis with acute on chronic cholecystitis: PLAN: Plan 49-year-old gentleman came to ED with right upper and epigastric abdominal pain since 1:30 AM today with nausea. 1. Acute on chronic GB colic with cholelithiasis with suspicion of choledocholithiasis: Patient is being admitted to [facility] floor. RUQ sonogram shows cholelithiasis without signs [...] shock if needed Total time spent in yyqc-kg-bywx encounter in discussion of advanced directive 17 minutes. Laboratory Results 03/16/25 09:54: WBC 9.0, RBC 5.93, Hgb 17.0 H, Hct 48.0, MCV 80.9, MCH 28.7, MCHC 35.4, RDW Std Deviation 37.0, RDW Coeff of Ghulam 12.7, Plt Count 237, MPV 10.6, Immature Gran % (Auto) 0.400, Neut % (Auto) 75.9 H, Lymph % (Auto) 17.5 L,Citrus % (Auto) 4.8, Eos % (Auto) 1.0, [...] Sl. Cloudy, Urine pH 6.0, Ur Specific Freer 1.010, Urine Protein Negative, Urine Glucose (UA) [...] to confirm stability possibly helpful. Reading Location: [facility] Charges/Coding Visit Charges Inpatient E&M: 73043 Init Hosp L3 Procedures Hospitalists Procedures: 27887 Advncd Care Plan 30 Min 03/16/25 1414 <Electronically signed by Jose Guadalupe Puckett MD> Cosigner Signature (if applicable): CC: Dr. Jose Guadalupe Puckett MD; Dr. Abbie Philip MD; No Primary Care Physician;Yevgeniy Friend, DO~ Signed [facility] Work Phone: Hospital Discharge instructionsAdditional Instructions Advised weku-gek-kjuotkg Tylenol 500 mg to 1000 mg Q6 hourly as needed for fever more than 102 Fahrenheit and moderate to severe pain respectively. Pofo-svb-ztzmsdg, probiotic, lactobacillus/acidophilus 1 tablet twice daily for 7 days. [facility]: [facility] Work Phone: Progress note Author Jose Guadalupe Puckett [facility] Note Date/Time March 17, 2025 1:02pm [facility] Medical Records Department [address] [place] [id number] Progress Note - Hospitalist 03/17/25 0754 MR#: [id number] Acct: [id number] Name: ALONDRA ARITA Rep #:[id number] : 1975 49 From: Jose Guadalupe White PCP: Care Physician,No Primary Status :ADM IN Location: [facility] [id number] Reason for Visit Chief Complaint: Right upper [...] (Auto) 75.9 H, Lymph % (Auto) 17.5 L,Citrus % (Auto) 4.8, Eos % (Auto) 1.0, [...] Sl. Cloudy, Urine pH 6.0, Ur Specific Freer 1.010, Urine Protein Negative, Urine Glucose (UA) [...] (Auto) 83.5 H, Lymph % (Auto) 12.9 L,Citrus % (Auto) 3.1, Eos % (Auto) 0.0, [...] without an obstructing lesion seen. Reading Location: [id number] Abdomen/Pelvis CT 03/16/25 12:05 IMPRESSION: Fatty liver. Well-defined lesion right lobe of liver favor focal nodular hyperplasia. Follow-up MR of the abdomen with Eovist in 4-6 months to confirm stability possibly helpful. Reading Location: [id number] C-Arm Fluoroscopy 03/16/25 15:55 IMPRESSION: Intraoperative fluoroscopy status post ERCP, as above. Reading Location: [id number] ERCP X-Ray 03/16/25 15:55 IMPRESSION: Intraoperative fluoroscopy status post ERCP, as above. Reading Location: [facility] Rhythm Strip Rhythm Strip: Sinus Rhythm [...] of choledocholithiasis: [facility] RUQ sonogram shows cholelithiasis without signs [...] shock if needed Total time spent in ufrn-bj-yufj encounter in discussion of advanced directive 17 minutes. Laboratory Results 03/16/25 09:54: WBC 9.0, RBC 5.93, Hgb 17.0 H, Hct 48.0, MCV 80.9, MCH 28.7, MCHC 35.4, RDW Std Deviation 37.0, RDW Coeff of Ghulam 12.7, Plt Count 237, MPV 10.6, Immature Gran % (Auto) 0.400, Neut % (Auto) 75.9 H, Lymph % (Auto) 17.5 L,Citrus % (Auto) 4.8, Eos % (Auto) 1.0, [...] Sl. Cloudy, Urine pH 6.0, Ur Specific Freer 1.010, Urine Protein Negative, Urine Glucose (UA) [...] (Auto) 83.5 H, Lymph % (Auto) 12.9 L,Citrus % (Auto) 3.1, Eos % (Auto) 0.0, [...] to confirm stability possibly helpful. Reading Location: [id number] Charges/Coding Visit Charges Inpatient E&M: 17813 Subs Hosp L2 03/17/25 1302 <Electronically signed by Jose Guadalupe Puckett MD> Cosigner Signature (if applicable): CC: ~ Signed [facility] Work Phone: Reason for referral (narrative)No reason for referral information availableWCincinnati [facility] Work Phone: Chief Complaint and Reason for [...] Do you have a Healthcare Power of Custom Shoe Designer And Maker? No March 16, 2025 1:04pm Summary Purpose [...] section and content) DATE CREATED AUTHOR 04/05/2025 [facility] FOR RECORDS PERTAINING TO PATIENTS WHO ARE [...] BE BASED ON THE PRIMARY CLINICAL RECORDS. [facility]. provides no warranty or guarantee of the accuracy or completeness of information in this document.
--- NOTE | 2025-04-07 15:55 | PCM.PRE.AN2 ---
ASA Classification* ASA Classification ASA Classification: 2 and E Assessment & Plan Anesthesia* Anesthesia Assessment Anesthesia Assessment: Discussed sedation and/or anesthesia options, risks, benefits, and alternatives with patient/parents/legal guardian/POA. Questions invited. The patient/parents/legal guardian/POA seems to understand and agrees to proceed with anesthesia plan. Reviewed the physical assessment, medical history, allergy history and patient home medications list prior to surgery/procedure/anesthetic and documented any changes. Performed airway and anesthesia risk assessments. Anesthesia Type Anesthesia Type: General Anesthesia Focused Assessment* Temperature: 98.9 F Pulse Rate: 88 Blood Pressure: 134/84 Respiratory Rate: 16 Pulse Ox: 98 Airway Assessment Mouth opens: >3 cm Mallampati Score: II Labs Anesthesia Preop lab: CBC WBC, (4.4-11.0) 12.5 K/mm3 H Today, 14:15 RBC, (4.6-6.2) 5.86 M/mm3 Today, 14:15 Hgb, (13.0-16.5) 16.3 g/dL Today, 14:15 Hct, (40-54) 47.1 % Today, 14:15 Plt Count, (150-450) 346 K/mm3 Today, 14:15 CHEMISTRY Potassium, (3.3-5.1) 3.6 mmol/L Today, 14:15 Sodium, (133-145) 137 mmol/L Today, 14:15 BUN, (4-19) 16 mg/dL Today, 14:15 Creatinine, (0.70-1.20) 0.93 mg/dL Today, 14:15 Glucose, (70-99) 119 mg/dL H Today, 14:15 COAG PT, (11.7-14.9) 13.3 SECONDS 03/16/25, 09:54 Pre-Assessment Diagnosis/Proposed Procedure Planned Operative Procedure(s): repair of iatrogenic supraumbilical hernia Anesthesia History Anesthesia History - biometrician: Anesthesia History - biometrician Hx Hospitalization Yes: 03/16/25 gallstones/ 03/29/25 09:18 ercp Any Problems With Anesthesia No 03/29/25 09:18 Cholinesterase deficiency No 03/29/25 09:18 You/Your Family Experience No 03/29/25 09:18 fever (hyperthermia) with Relationship Recent Exposure to Contagious No 04/04/25 12:47 Disease Does patient have nerve No 03/29/25 09:18 stimulator Patient instructed to have device shut off --Does patient have Pacemaker or ICD? When Was Last Pacemaker Check QUESTION #4 FULL TEXT: You/Your Family Experience fever (hyperthermia) with Anesthesia Last Oral Intake Last Oral intake: Last Oral Intake NPO since Meds taken in AM with sips of water? Meds patient instructed to take am of surgery PONV PONV - biometrician: PONV - biometrician Female HX of Motion Sickness HX of N/V After Surgery Non-Smoker Duration of Surgery greater than 60 minutes Number of Risk Factors PONV Score Height & Weight Height & Weight: Anesthesia: Height & Weight Height 5 ft 7 in 04/07/25 13:36 Weight: 101.151 kg 04/07/25 13:36 Body Mass Index (BMI) 34.9 04/07/25 13:36 Respiratory Assessment Respiratory Assessment - biometrician: Respiratory Tract Infection Hx - biometrician Hx Respiratory Tract Infection No 03/29/25 09:18 STOP Sleep Apnea STOP Sleep Apnea - biometrician: STOP Sleep Apnea - biometrician Hx Hypertension No 03/29/25 09:18 Hx Sleep Apnea No 04/04/25 16:45 CPAP BIPAP Do you snore loudly (louder than talking or can be heard Do you often feel tired/ fatigued/ sleepy during daytime? Has anyone observed you stop breathing during sleep? STOP Results QUESTION #5 FULL TEXT : Do you snore loudly (louder than talking or can be heard through closed doors)? Tobacco Use History Tobacco Use History - biometrician: Tobacco Use History - biometrician Tobacco Use Smoking Status Never smoker 04/07/25 13:47 Hx Tobacco Use No 03/29/25 09:18 Years Smoking Packs Smoked per Day Smoking Cessation Date was within the last 15 years Hx Smoking Cessation Date Hx Smoking Cessation Counseling Hematologic Medial History Hematologic Hx - biometrician: Hematologic Medical Hx - behavioral health director Hx of Blood Transfusion Hx of Transfusion in last 3 Months Date of Last Transfusion (if within last 3 months) Ever experience any problems with transfusion(s)? Specify any problems Hx of Preganancy in last 3 Months Nurse Filling Out Transfusion & Questions: Date: Time: Patient unable to answer at this time (ie. confused, unrespo /Reproduction History /Reproductive History - biometrician: /Reproductive Hx- biometrician Hx Now Gestational Age (in weeks): EDC: Hx Hx Para Hx Section SAB No 03/29/25 09:18 PFSH Medical History (Updated 04/07/25 @ 15:[address] Rich Ramirez MD) Wears glasses Fatty liver Heartburn Gastric reflux Non-smoker Nausea Abdominal pain GERD (gastroesophageal reflux disease) Home Medications ?Medication ?Instructions ?Recorded ?Last Taken ?Type omeprazole 40 mg capsule,delayed 40 mg PO QDAY #30 caps 03/23/25 04/03/25 Rx release oxycodone 5 mg capsule 5 mg PO Q6H PRN pain 3 days #10 04/04/25 Unknown Rx caps Allergy/AdvReac Type Severity Reaction Status Date / Time No Known Allergies Allergy Verified 04/07/25 13:36 Surgical History S/P laparoscopic cholecystectomy History of wisdom tooth extraction (~06/21/94) Hx of LASIK History of ERCP (03/16/25) Social History Smoking Status: Never smoker alcohol intake: never substance use type: does not use Review of Systems (Anesthesia) ROS Narrative System reviewed and no additional complaints, except as documented.
[2025-04-07] MEDS: 0.9% Normal Saline (1000mL) 1,000 ML 1000 ML IV (15:59)
[2025-04-07] MEDS: fentaNYL 100 MCG/2 ML Ampul IV (16:08)
[2025-04-07] MEDS: Cefazolin 1 GM/5 ML Vial 2 GM IV (16:20)
[2025-04-07] MEDS: Lactated Ringers 1,000 ML 1000 ML IV (16:39)
[2025-04-07] MEDS: Bupiv/Epi 0.25% 30 ML Vial (16:44)
--- NOTE | 2025-04-07 16:45 | OP.PCM_ITS ---
Operative Report (Standard) Operative Information Date of Procedure: 04/07/25 Pre-Operative Diagnosis: Incisional hernia Post-Operative Diagnosis: Same Surgery/Procedure Performed: Open incisional hernia pair with mesh [facility] sales: Yes Community Music Therapist: Renay Leo Tasks completed by field research assistant: Opening & closing Type of Anesthesia: General/Supplemental RN Documented Start/Stop Times: Operation Date: 04/07/25 16:15 Case Time Anesthesia Start 04/07/25 15:58 Into Room 04/07/25 15:58 Procedure Start 04/07/25 16:19 Procedure End 04/07/25 16:53 Anesthesia End 04/07/25 17:00 Out of Room 04/07/25 17:00 Into Recovery 04/07/25 17:03 Out of Recovery 04/07/25 17:40 Procedure Start Time: 16:19 Procedure Stop Time: 16:53 Select all DRAINS/GRAFTS/IMPLANTS that apply: Prosthetic device Prosthetic device details: Ventralex ST 6.4 cm LOT [id number] ref [id number] Special Medications: Ancef 2 g IV x 1 Estimated Blood Loss: < 10 cc Specimen collected: No Description of surgery: Patient was brought into the room placed supine on the operating table. Correct patient, procedure, site, positioning, special, was verified prior to procedure. General anesthesia was induced. The abdomen was prepped draped in usual sterile fashion. The previous superior midline incision was opened with a 15 blade scalpel. Small bowel was seen and viable. This was reduced back in the abdomen. The fascia around the hernia defect was cleared and the hernia defect measured 2 x 2.2 cm. The fascia was noted to be thin. A 6.[address] hernia patch was used and secured laterally at the tails with 1 Nurolon mattress sutures. 1 Nurolon suture was placed to close the fascia in a xdizrz-on-xrzks x2 and 1 inte rrupted including the mesh inferiorly and superiorly. The wound was irrigated with saline. Hemostasis was assured. The incision was closed with 3-0 Vicryl subdermal interrupted sutures and the sk in was closed with interrupted 4-0 Monocryl sutures. Steri-Strips and Tegaderm and OpSite were placed over the incision once pressure dressing is placed over the incision. Patient was extubated. Patient tolerated procedure well and was taken to the postanesthesia care unit in stable condition. Surgical Findings: See operative report Complications Complications: No
--- NOTE | 2025-04-07 17:04 | PCM.POST.ANE ---
Anesthesia: Postop Eval I Current Vital Signs Temperature: 97 F Pulse Rate: 81 Blood Pressure: 126/68 Respiratory Rate: 14 Pulse Ox: 94 Assessment Airway patent: Yes Spontaneous unlabored respirations: Yes nausea: No Vomiting: No Anesthesia Complication: No Fluid Hydration Crystalloid volume administer (ml): 1,200 Total IV fluid infused: 1,200 Progress Note Anesthesia document: Postop Eval 1 completed: Yes
--- NOTE | 2025-04-07 17:08 | PCM.POSTANE2 ---
Anesthesia Postop Eval I Sum Postop Eval Completion status Anesthesia document: Postop Eval 1 completed: Yes Anesthesia Postop Eval I Summary Anesthesia Postop Eval I Summary: Anesthesia Postop Eval I: Assessment Summary Airway patent Yes 04/07/25 17:04 Spontaneous unlabored Yes 04/07/25 17:04 respirations Mental status nausea No 04/07/25 17:04 Vomiting No 04/07/25 17:04 Anesthesia Postop Eval I: Fluid Summary Crystalloid volume administer 1,200 04/07/25 17:04 (ml) Colloids volume administered ( ml) Blood Product volume administered (ml) Total IV fluid infused 1,200 04/07/25 17:04 Anesthesia Postop Eval I: Summary Notes Anesthesia Complication No 04/07/25 17:04 Anesthesia Complication Comment: Post-operative progress note Anesthesia: Postop Eval II Evaluation Mental status: Awake Pain Level: 0 nausea: No Vomiting: No
--- OUTSIDE RECORDS SUMMARY | 2025-04-07 17:52 | XMS RPT_ITS | CCD ---
Author Organization [facility] Care Team Providers Care Sort Line Worker Name Role Phone Care Physician, No Primary Primary Care Physicia n Unavailable Dr. Lucretia Bear DO Emergency Department Physi alexsander Reji BROOKS, Dr. Landry oCx Admitting Physician Italo BROOKS, Dr. Shi Attending Physician Italo BROOKS, Dr. Shi Nurse Practitioner Dr. Yevgeniy Sarah DO Nurse Practitioner Peter ROUSTABOUT-CKarlee Nurse Practitioner [phone] Librado ROUSTABOUT-C, Apolonia Nurse Practitioner Shira Dawson Nurse Practitioner [phone] Dr. Yevgeniy Sarah DO Attending Physician [phone] Care Physician, No Primary Referring Provider Un available Cedrick BROOKS, Dr. Leiva Attending Physician [phone] Care Physician, No Primary Primary Care Unava [...] 03-18-2025 docusate sodium 50 mg / sennosides, long-term 8.6 mg oral tablet (3 sources) Start: [...] Range Facility Discharge Instructionon 03-21 Discharge Instruction [facility] Medical Records Department [address] [place] [address] Instructions for Home/Discharge Instructions 04/04/25 1526 MR#: [id number] Acct: [id number] Name: ALONDRA ARITA Rep #: [id number] : 1975 49 From: Abbie Philip MD PCP: Roman Physician,No Primary Status:REG [facility] Discharge Instructions Diet Discharge Diet: Light diet [...] 5 PM and on the weekends call [phone] with any concerns. Test Results: Test results from this visit will be discussed in further detail at your follow-up appointment, if applicable. Discharge Plan Admission Attending Provider: Abbie Philip Primary Care Provider: Roman Physician,No Primary Instructions Print Language: Citizen Of [place] Discharge Orders/Prescriptions Prescriptions: New oxycodone 5 mg [...] placed): Home, Self Care 04/04/25 1529 Abbie Phiilp MD CC: No Primary Care Physician Signed Normal [facility] Liver Profileon 04-04-2025 Albumin [Mass/Vol] 4.5 g/dL Normal 3.5-5.0 [facility] Comment on above: Performed By: #### L 500.3400 ####[facility] [address] [place], [address] ALK PHOS 58 U/L Normal 40-129 [facility] Comment on above: Performed By: #### L 500.3400 ####[facility] [address] [place], [address] ALT [Catalytic activity/Vol] 44 U/L Normal <=46 [facility] Comment on above: Performed By: #### L 500.3400 ####[facility] [address] [place], [address] AST [Catalytic activity/Vol] 30 U/L Normal <=37 [facility] Comment on above: Performed By: #### L 500.3400 ####[facility] [address] [place], [address] Bilirubin [Mass/Vol] 0.71 mg/dL Normal 0.00-1.30 [facility] Comment on above: Performed By: #### L 500.3400 ####[facility] [address] [place], [address] Bilirubin.direct [Mass/Vol] 0.32 mg/dL High 0.00-0.30 [facility] Comment on above: Performed By: #### L 500.3400 ####[facility] [address] [place], [address] Globulin (S) [Mass/Vol] 3.2 g/dL Normal 2.2-4.[address] [facility] Comment on above: Performed By: #### L 500.3400 ####[facility] [address] [place], [address] T PROT 7.7 g/dL Normal 5.9-8.4 [facility] Comment on above: Performed By: #### L 500.3400 ####[facility] [address] [place], [address] MR/POSTOP.ANEon 04-04-2025 MR/POSTOP.ANE [facility] Medical Records Department [address] [place] [address] Anesthesia Postop Eval I 04/04/25 1545 MR#: [id number] Acct: [id number] Name: LYLAALONDRA DORSEY Rep #: [id number] : 1975 49 From: Bryson Yanes CRNA PCP: Care Physician,No Primary Status:REG [facility] Y Race: C Location: [place] [address] Anesthesia: Postop Eval I Current Vital Signs [...] CRNA Cosigner Signature: Date CC: Signed Normal [facility] MR/PTDFIOIW6wa 04-04-2025 MR/POSTOPAN2 [facility] Medical Records Department [address] [place] [address] Anesthesia Postop Eval II 04/04/25 1737 MR#: [id number] Acct: [id number] Name: ALONDRA ARITA Rep #: [id number] : 1975 49 From: Armando Gomez MD PCP: Care Physician,No Primary Status:REG SD[facility] Y Race: C Location: [place] [address] Anesthesia Postop Eval I Sum Postop Eval Completion status Anesthesia document: Postop Eval 1 completed: Yes Anesthesia Postop Eval I Summary Anesthesia Postop Eval I Summary: Anesthesia Postop Eval I: Assessment Summary Airway patent Yes 04/04/25 15:46 [employer] FABRICATOR.PKEL Spontaneous unlabored Yes 04/04/25 15:46 [employer] FABRICATOR.PKEL respirations Mental status Awake,Calm 04/04/25 15:46 TUB[employer] FABRICATOR.PKEL nausea No 04/04/25 15:46 TUB[employer] FABRICATOR.PKEL Vomiting No 04/04/25 15:46 TUB[employer] FABRICATOR.PKEL Anesthesia Postop Eval I: Fluid Summary Crystalloid volume administer 1,600 04/04/25 15:46 TUBULAR [employer]ODU[employer] FABRICATOR.PKEL (ml) Colloids volume administered ( ml) Blood Product volume administered (ml) Total IV fluid infused 1,600 04/04/25 15:46 TUBULAR [employer]ODU[employer] FABRICATOR.PKEL Anesthesia Postop Eval I: Summary Notes Anesthesia Complication No 04/04/25 15:46 TUBULAR [employer] FABRICATOR.PKEL Anesthesia Complication Comment: Post-operative progress note Anesthesia: Postop Eval II Evaluation Mental status: Awake and Calm Pain Level: 1 nausea: No Vomiting: No Complications Anesthesia Complication: No 04/04/25 1737 Date Armando Gomez MD Cosigner Signature: Date CC: Signed Normal [facility] Operative Reporton 5 Operative Report [facility] Medical Records Department [address] [place] [address] Operative Report 04/04/25 1520 MR#: [id number] Acct: [id number] Name: ALONDRA ARITA Rep #: [id number] : 1975 49 From: Abbie Phliip MD PCP: Care Physician,No Primary Status:[facility] Location: [facility] Operative Report (Standard) Operative Information Date of Procedure: 04/04/25 Pre-Operative Diagnosis: Cholelithiasis Post-Operative Diagnosis: Cholelithiasis, hydrops of the gallbladder Surgery/Procedure Performed: Robotic cholecystectomy with attempted cholangiogram/ICG logistics supervisor: Yes Seafood Processor: Sarah Beth Baumann Tasks completed by machinist first class: Opening closing Type of Anesthesia: General/Supplemental RN [...] the supraumbilical site was closed with 2 nuksfm-wu-sospk sutures as well as interrupted 0 Vicryl suture. The skin was closed with sutures of 4-0 Monocryl and Steri-Strips. The patient was extubated. The patient tolerated procedure well and was taken to the postanesthesia care unit in stable condition. Surgical Findings: See operative report Complications Complications: No 04/04/25 2042 (more content not included)... Normal [facility] Surgery Visit Reporton 03-23 Surgery Visit Report [facility] [address] [place] [address] OFFICE VISIT Date of Service: 03/23/25 MR#: [id number] Acct: [id number] Name: ALONDRA ARITA Rep #: [id number] : 1975 Provider: Dr. Abbie gould MD Age/Sex: 49/M Location: [facility] Status: Signed Intake Vital Signs 03/16/25 13:04 [...] healthy appearing, comfortable and no acute distress [facility] Head: normocephalic and atraumatic Neck Neck: [...] Philip M.D. (more content not included)... Normal [facility] Bilirubin directOrdered By: Jose Guadalupe Puckett on 03-18-2025 Bilirubin.direct [Mass/Vol] 0.40 mg/dL High 0.00-0.30 [facility] Bilirubin, totalOrdered By: Jose Guadalupe Puckett on 03-18-2025 Bilirubin [Mass/Vol] 0.85 mg/dL 0.00-1.30 [facility] Discharge Instructionon 02-20 Discharge Instruction [facility] Medical Records Department [address] [place] [address] Instructions for Home/Discharge Instructions 03/18/25 0935 MR#: [id number] Acct: [id number] Name: ALONDRA ARITA Rep #: [id number] : 1975 49 From: Jose Guadalupe Puckett [...] Alex Instructions Additional Instructions / Restrictions: Advised ikva-wfk-gkyagak Tylenol 500 mg to 1000 mg Q6 hourly as needed for fever more than 102 Fahrenheit and moderate to severe pain respectively. Vjhj-elw-ltjwoxs, probiotic, lactobacillus/acidophi tre 1 tablet twice daily [...] 03/18/25 0940 Jose Guadalupe Puckett MD CC: ROUSTABOUTMaliha Green; JACOBO-Amelia Pavon; Dr. Jose Guadalupe Puckett MD; MERE Robles; No Primary Care Physician; Yevgeniy Sarah DO Signed Normal [facility] Electrocardiogram reportOrde red By: Constantin Acosta on 03-18-2025 EKG study [facility] Cardiovascular Services [address] [place] [address] 12 Lead EKG 03/16/25 1044 MR#: [id number] Acct: [id number] Name: ALONDRA ARITA Rep #:[id number] : 1975 49 From: Constantin Acosta MD Attending Dr: Dr. Jose Guadalupe Puckett MD Status: DIS IN Ordering Dr: Lucretia Bear DO Date: 0 03/16/25 [place] [facility] Sex: M C Admitted: 03/16/25 Test Reason [...] Normal ECG Confirmed by CONSTANTIN ACOSTA ([id number]), field map editor CARI OLIVARES ([id number]) on 03/19/2025 9:11:15 AM Referred By: Confirmed By: CONSTANTIN ACOSTA 03/19/25910 Date _ Constantin Acosta MD CC: Dr. Lucretia Bear DO; Dr. Jose Guadalupe Puckett MD; No Primary Care Physician ~ Signed [facility] Other Phone: Laboratory - Chemistry and C hemistry - challengeOrdered By: Jose Guadalupe Puckett on 03-18-2025 AST [Catalytic activity/Vol] 222 U/L High <38 [facility] Liver Profileon 03-18-2025 Albumin [Mass/Vol] 3.9 g/dL Normal 3.5-5.0 [facility] Comment on above: Performed By: #### L 500.3400 ####[facility] [address] [place], [address] ALK PHOS 65 U/L Normal 40-129 [facility] Comment on above: Performed By: #### L 500.3400 ####[facility] [address] [place], [address] ALT [Catalytic activity/Vol] 573 U/L High <=46 [facility] Comment on above: Performed By: #### L 500.3400 ####[facility] [address] [place], [address] AST [Catalytic activity/Vol] 222 U/L High <=37 [facility] Comment on above: Performed By: #### L 500.3400 ####[facility] [address] [place], [address] Bilirubin [Mass/Vol] 0.85 mg/dL Normal 0.00-1.30 [facility] Comment on above: Performed By: #### L 500.3400 ####[facility] [address] [place], [address] Bilirubin.direct [Mass/Vol] 0.40 mg/dL High 0.00-0.30 [facility] Comment on above: Performed By: #### L 500.3400 ####[facility] [address] [place], [address] Globulin (S) [Mass/Vol] 2.7 g/dL Normal 2.2-4.[address] [facility] Comment on above: Performed By: #### L 500.3400 ####[facility] [address] [place], [place], [address] T PROT 6.5 g/dL Normal 5.9-8.4 [facility] Comment on above: Performed By: #### L 500.3400 ####[facility] [address] [place], [place], [address] Serum globulin measurementOr dered By: Jose Guadalupe Puckett on 03-18-2025 Globulin (S) [Mass/Vol] 2.7 g/dL 2.2-4.[address] [facility] Serum or plasma alanine jackson otransferase (ALT) measurementOrdered By: Jose Guadalupe Puckett on 03-18-2025 ALT [Catalytic activity/Vol] 573 U/L High <47 [facility] Serum or plasma albumin carlos urement (mass/volume)Ordered By: Jose Guadalupe Puckett on 03-18-2025 Albumin [Mass/Vol] 3.9 g/dL 3.5-5.0 [facility] Serum or plasma alkaline julio sphatase measurementOrdered By: Jose Guadalupe Puckett on 03-18-2025 ALP [Catalytic activity/Vol] 65 U/L 40-129 [facility] Total proteinOrdered By: Michael Puckett on 03-18-2025 Protein [Mass/Vol] 6.5 g/dL 5.9-8.4 [facility] Absolute lymphocyte countOrd ered By: Jose Guadalupe Puckett on 03-17-2025 Lymphocytes Auto (Unsp spec) [#/Vol] 1.48 10*3/uL 0.83-4.51 [facility] Absolute neutrophil countOrd ered By: Jose Guadalupe Puckett on 03-17-2025 Neutrophils (Bld) [#/Vol] 9.6 10*3/uL High 2.0-7.7 [facility] Anion gap in Serum or Plasma Ordered By: Jose Guadalupe Puckett on 03-17-2025 Anion gap [Moles/Vol] 13 mmol/L 5-15 [facility] Automated lymphocyte count a s percentage of total leukocytesOrdered By: Jose Guadalupecipriano Puckett on 03-17-2025 Lymphocytes/100 WBC Auto (Unsp spec) 12.9 % Low 19-41 [facility] BUN/creatinine ratioOrdered By: Jose Guadalupe Puckett on 03-17-2025 Urea nitrogen/Creatinine [Mass ratio] 9.9 mg/mg Low 10-20 [facility] Basic Metabolic Profile (BMP )on 03-17-2025 BUN/CRE 9.9 RATIO Low 10-20 [facility] Comment on above: Performed By: #### L 500.3400, L100.0100, L500.2500 ####[facility] [address] [place], [address] Calcium [Mass/Vol] 9.0 mg/dL Normal 7.6-11.0 [facility] Comment on above: Performed By: #### L 500.3400, L100.0100, L500.2500 ####[facility] [address] [place], [address] Chloride [Moles/Vol] 105 mmol/L Normal 98-108 [facility] Comment on above: Performed By: #### L 500.3400, L100.0100, L500.2500 ####[facility] [address] [place], [address] CO2 [Moles/Vol] 19.5 mmol/L Low 21.0-32.0 [facility] Comment on above: Performed By: #### L 500.3400, L100.0100, L500.2500 ####[facility] [address] [place], [address] Creatinine [Mass/Vol] 0.92 mg/dL Normal 0.70-1.20 [facility] Comment on above: Performed By: #### L 500.3400, L100.0100, L500.2500 ####[facility] [address] [place], [address] ECRCL 130.43 ml/min Normal 50-250 [facility] Comment on above: Performed By: #### L 500.3400, L100.0100, L500.2500 ####[facility] [address] [place], [address] GAP 13 Normal 5-15 [facility] Comment on above: Performed By: #### L 500.3400, L100.0100, L500.2500 ####[facility] [address] [place], [address] GFR/1.73 sq M.predicted among non-blacks MDRD (S/P/Bld) [Vol rate/Area] 101 mL/min/{1.73_m2} Normal >60 [facility] Comment on above: Result Comment: mL/m in/1.73m2 CKD-EPI Creatinine Equation (2020) Performed By: #### L 500.3400, L100.0100, L500.2500 ####[facility] [address] [place], [address] Glucose [Mass/Vol] 125 mg/dL High 70-99 [facility] Comment on above: Performed By: #### L 500.3400, L100.0100, L500.2500 ####[facility] [address] [place], [address] Potassium [Moles/Vol] 4.0 mmol/L Normal 3.3-5.1 [facility] Comment on above: Performed By: #### L 500.3400, L100.0100, L500.2500 ####[facility] [address] [place], [address] Sodium [Moles/Vol] 138 mmol/L Normal 133-145 [facility] Comment on above: Performed By: #### L 500.3400, L100.0100, L500.2500 ####[facility] [address] [place], [address] Urea nitrogen [Mass/Vol] 9 mg/dL Normal 4-19 [facility] Comment on above: Performed By: #### L 500.3400, L100.0100, L500.2500 ####[facility] [address] [place], [address] Basophil percentageOrdered B y: Jose Guadalupe Puckett on 03-17-2025 Basophils/100 WBC (Bld) 0.1 % 0-1 [facility] CBC W/Diff, Automatedon 02-20 Absolute Lymph 1.48 X10 3/uL Normal 0.83-4.51 [facility] Comment on above: Performed By: #### L 500.3400, L100.0100, L500.2500 #### [facility] [address] [place], [address] Absolute Neut 9.6 X10 3/uL High 2.0-7.7 [facility] Comment on above: Performed By: #### L 500.3400, L100.0100, L500.2500 #### [facility] [address] [place], [address] Basophils/100 WBC (Bld) 0.1 % Normal 0-1 [facility] Comment on above: Performed By: #### L 500.3400, L100.0100, L500.2500 #### [facility] [address] [place], [address] Eosinophils/100 WBC (Bld) 0.0 % Normal 0-5 [facility] Comment on above: Performed By: #### L 500.3400, L100.0100, L500.2500 #### [facility] [address] [place], [address] Erythrocyte distribution width (RBC) [Ratio] 13.2 % Normal 11.6-14.6 [facility] Comment on above: Performed By: #### L 500.3400, L100.0100, L500.2500 #### [facility] [address] [place], [address] Hematocrit (Bld) [Volume fraction] 43.5 % Normal 40-54 [facility] Comment on above: Performed By: #### L 500.3400, L100.0100, L500.2500 #### [facility] [address] [place], [address] Hemoglobin (Bld) [Mass/Vol] 15.2 g/dL Normal 13.0-16.5 [facility] Comment on above: Performed By: #### L 500.3400, L100.0100, L500.2500 #### [facility] [address] [place], [address] IG% 0.400 Normal 0.0-0.9 [facility] Comment on above: Result Comment: IG% - Immature Granulocytes (promyelocytes, myelocytes and metamyelocytes) > 1% indicates that a LEFT SHIFT is Present. Performed By: #### L 500.3400, L100.0100, L500.2500 #### [facility] [address] [place], [address] Lymphocytes/100 WBC (Bld) 12.9 % Low 19-41 [facility] Comment on above: Performed By: #### L 500.3400, L100.0100, L500.2500 #### [facility] [address] [place], [address] MCH (RBC) [Entitic mass] 28.1 pg Normal 27.0-32.0 [facility] Comment on above: Performed By: #### L 500.3400, L100.0100, L500.2500 #### [facility] [address] [place], [address] MCHC (RBC) [Mass/Vol] 34.9 g/dL Normal 32-36 [facility] Comment on above: Performed By: #### L 500.3400, L100.0100, L500.2500 #### [facility] [address] [place], [address] MCV (RBC) [Entitic vol] 80.6 fL Normal 80-94 [facility] Comment on above: Performed By: #### L 500.3400, L100.0100, L500.2500 #### [facility] [address] [place], [address] Monocytes/100 WBC (Bld) 3.1 % Normal 0-10 [facility] Comment on above: Performed By: #### L 500.3400, L100.0100, L500.2500 #### [facility] [address] [place], [address] Neutrophils/100 WBC (Bld) 83.5 % High 47-70 [facility] Comment on above: Performed By: #### L 500.3400, L100.0100, L500.2500 #### [facility] [address] [place], [address] Nucleated RBC (Bld) [#/Vol] 0 10*3/uL Normal 0-5 [facility] Comment on above: Performed By: #### L 500.3400, L100.0100, L500.2500 #### [facility] [address] [place], [address] Platelet mean volume (Bld) [Entitic vol] 10.7 fL Normal 6.2-12.0 [facility] Comment on above: Performed By: #### L 500.3400, L100.0100, L500.2500 #### [facility] [address] [place], [address] Platelets (Bld) [#/Vol] 242 10*3/uL Normal 150-450 [facility] Comment on above: Performed By: #### L 500.3400, L100.0100, L500.2500 #### [facility] [address] [place], [address] RBC (Bld) [#/Vol] 5.40 10*6/uL Normal 4.6-6.2 [facility] Comment on above: Performed By: #### L 500.3400, L100.0100, L500.2500 #### [facility] [address] [place], [address] RDW SD 38.0 fl Normal 35.1-43.9 [facility] Comment on above: Performed By: #### L 500.3400, L100.0100, L500.2500 #### [facility] [address] [place], [address] WBC (Bld) [#/Vol] 11.5 10*3/uL High 4.4-11.0 [facility] Comment on above: Performed By: #### L 500.3400, L100.0100, L500.2500 #### [facility] [address] [place], [address] Carbon dioxide, total [Moles /volume] in Central venous bloodOrdered By: Jose Guadalupe Puckett on 03-17-2025 CO2 [Moles/Vol] 19.5 mmol/L Low 21.0-32.0 [facility] Chloride assayOrdered By: Gillian Puckett on 03-17-2025 Chloride [Moles/Vol] 105 mmol/L 98-108 [facility] Eosinophil percentageOrdered By: Jose Guadalupe Puckett on 03-17-2025 Eosinophils/100 WBC (Bld) 0.0 % 0-5 [facility] Erythrocyte distribution wid th ratioOrdered By: Jose Guadalupe Puckett on 03-17-2025 Erythrocyte distribution width (RBC) [Ratio] 13.2 % 11.6-14.6 [facility] Erythrocyte distribution wid th standard deviationOrdered By: Jose Guadalupe Puckett on 03-17-2025 Erythrocyte distribution width (RBC) [Ratio] 38.0 fl 35.1-43.9 [facility] Glomerular filtration rate ( GFR) estimation/1.73 sq m using serum, plasma, or whole bOrdered By: Jose Guadalupe Puckett on 03-17-2025 GFR/1.73 sq M.predicted among non-blacks MDRD (S/P/Bld) [Vol rate/Area] 101 mL/min/{1.73_m2} >60 [facility] Comment on above: mL/min/1.73m2 CKD-EP I Creatinine Equation (2020) Hematocrit Auto (Bld) [Volum e fraction]Ordered By: Jose Guadalupe Puckett on 03-17-2025 Hematocrit (Bld) [Volume fraction] 43.5 % 40-54 [facility] Hemoglobin measurementOrdere d By: Jose Guadalupe Puckett on 03-17-2025 Hemoglobin (Bld) [Mass/Vol] 15.2 g/dL 13.0-16.5 [facility] Immature granulocytes/100 WB C Auto (Bld)Ordered By: Jose Guadalupe Puckett on 03-17-2025 Immature granulocytes/100 WBC (Bld) 0.400 % 0.0-0.9 [facility] Comment on above: IG% - Immature Granu locytes (promyelocytes, myelocytes and metamyelocytes) > 1% indicates that a LEFT SHIFT is Present. Liver Profileon 03-17-2025 ALT [Catalytic activity/Vol] 865 U/L High <=46 [facility] Comment on above: Performed By: #### L 500.3400, L100.0100, L500.2500 ####[facility] [address] [place], [place], [address] MCV (mean corpuscular volume ) determinationOrdered By: Jose Guadalupe Puckett on 03-17-2025 MCV (RBC) [Entitic vol] 80.6 fL 80-94 [facility] Mean corpuscular hemoglobin (MCH) determinationOrdered By: Jose Guadalupe Puckett on 03-17-2025 MCH (RBC) [Entitic mass] 28.1 pg 27.0-32.0 [facility] Mean corpuscular hemoglobin concentration (MCHC) determinationOrdered By: Jose Guadalupe Puckett on 03-17-2025 MCHC (RBC) [Mass/Vol] 34.9 g/dL 32-36 [facility] Mean platelet volume determi nationOrdered By: Jose Guadalupe Puckett on 03-17-2025 Platelet mean volume (Bld) [Entitic vol] 10.7 fL 6.2-12.0 [facility] Monocyte percentageOrdered B y: Jose Guadalupe Puckett on 03-17-2025 Monocytes/100 WBC (Bld) 3.1 % 0-10 [facility] Neutrophil percentageOrdered By: Jose Guadalupe Puckett on 03-17-2025 Neutrophils/100 WBC (Bld) 83.5 % High 47-70 [facility] Nucleated red blood cell per centageOrdered By: Jose Guadalupe Puckett on 03-17-2025 Nucleated RBC/100 WBC (Bld) [Ratio] 0 % 0-5 [facility] Platelet countOrdered By: Gillian Puckett on 03-17-2025 Platelets (Bld) [#/Vol] 242 10*3/uL 150-450 [facility] Potassium measurement (mass/ volume)Ordered By: Jose Guadalupe Puckett on 03-17-2025 Potassium (Unsp spec) [Mass/Vol] 4.0 mmol/L 3.3-5.1 [facility] RBC Auto (Bld) [#/Vol]Ordere d By: Jose Guadalupe Puckett on 03-17-2025 RBC (Bld) [#/Vol] 5.40 10*6/uL 4.6-6.2 [facility] Serum creatinine measurement (mass/volume)Ordered By: Jose Guadalupe Puckett on 03-17-2025 Creatinine [Mass/Vol] 0.92 mg/dL 0.70-1.20 [facility] Serum glucose measurement (m ass/volume)Ordered By: Jose Guadalupe Puckett on 03-17-2025 Glucose [Mass/Vol] 125 mg/dL High 70-99 [facility] Serum or plasma calcium carlos urement (mass/volume)Ordered By: Jose Guadalupe Puckett on 03-17-2025 Calcium [Mass/Vol] 9.0 mg/dL 7.6-11.0 [facility] Serum or plasma urea nitroge n measurement (mass/volume)Ordered By: Jose Guadalupe Puckett on 03-17-2025 Urea nitrogen [Mass/Vol] 9 mg/dL 4-19 [facility] Sodium levelOrdered By: Yury Puckett on 03-17-2025 Sodium [Moles/Vol] 138 mmol/L 133-145 [facility] White blood cell (WBC) count Ordered By: Jose Guadalupe Puckett on 03-17-2025 WBC (Bld) [#/Vol] 11.5 10*3/uL High 4.4-11.0 [facility] 12 Lead EKGon 03-16-2025 12 Lead EKG [facility] Cardiovascular Services [address] [place] [address] 12 Lead EKG 03/16/25 1044 MR#: [id number] Acct: [id number] Name: ALONDRA ARITA Rep #: [id number] : 1975 49 From: Constantin Acosta MD Attending Dr: Dr. Jose Guadalupe Puckett MD Status: DIS IN Ordering Dr: Lucretia Bear DO Date: 03/16/25 [place] [facility] [place] Sex: M C Admitted: 03/16/25 Test Reason : GENERAL Blood Pressure : */* mmHG Vent. Rate : 76 BPM Atrial Rate : 76 BPM P-R Int : 170 ms QRS Dur : 76 ms QT Int : 354 ms P-R-T Axes : 51 18 38 degrees QTcB Int : 398 ms Normal sinus rhythm with sinus arrhythmia Normal ECG Confirmed by CONSTANTIN ACOSTA ([id number]), field map editor CARI OLIVARES ([id number]) on 03/19/2025 9:11:15 AM Referred By: Confirmed By: CONSTANTIN ACOSTA 03/19/25910 Date Constantin Acosta MD CC: Dr. Lucretia Bear DO; Dr. Jose Guadalupe Puckett MD; No Primary Care Physician Signed Normal [facility] Bilirubin Test strip Ql (U)O rdered By: Lucretia Bear on 03-16-2025 Bilirubin Ql (U) Negative Negative [facility] Bilirubin, Directon 03-16-20 Bilirubin.direct [Mass/Vol] 0.73 mg/dL High 0.00-0.30 [facility] Comment on above: Result Comment: Hemo lysis present, Results??could be affected. ?? Performed By: #### L 501.4700 ####[facility] [address] [place], [address] CBC W/Diff, Automatedon 09-2 -2024 Absolute Lymph 1.58 X10 3/uL Normal 0.83-4.51 [facility] Comment on above: Performed By: #### L 100.0100, L500.4050, L501.2450 #### [facility] [address] [place], [address] Absolute Neut 6.8 X10 3/uL Normal 2.0-7.7 [facility] Comment on above: Performed By: #### L 100.0100, L500.4050, L501.2450 #### [facility] [address] [place], [address] Basophils/100 WBC (Bld) 0.4 % Normal 0-1 [facility] Comment on above: Performed By: #### L 100.0100, L500.4050, L501.2450 #### [facility] [address] [place], [address] Eosinophils/100 WBC (Bld) 1.0 % Normal 0-5 [facility] Comment on above: Performed By: #### L 100.0100, L500.4050, L501.2450 #### [facility] [address] [place], [address] Erythrocyte distribution width (RBC) [Ratio] 12.7 % Normal 11.6-14.6 [facility] Comment on above: Performed By: #### L 100.0100, L500.4050, L501.2450 #### [facility] [address] [place], [address] Hematocrit (Bld) [Volume fraction] 48.0 % Normal 40-54 [facility] Comment on above: Performed By: #### L 100.0100, L500.4050, L501.2450 #### [facility] [address] [place], [address] Hemoglobin (Bld) [Mass/Vol] 17.0 g/dL High 13.0-16.5 [facility] Comment on above: Performed By: #### L 100.0100, L500.4050, L501.2450 #### [facility] [address] [place], [address] IG% 0.400 Normal 0.0-0.9 [facility] Comment on above: Result Comment: IG% - Immature Granulocytes (promyelocytes, myelocytes and metamyelocytes) > 1% indicates that a LEFT SHIFT is Present. Performed By: #### L 100.0100, L500.4050, L501.2450 #### [facility] [address] [place], [address] Lymphocytes/100 WBC (Bld) 17.5 % Low 19-41 [facility] Comment on above: Performed By: #### L 100.0100, L500.4050, L501.2450 #### [facility] [address] [place], [address] MCH (RBC) [Entitic mass] 28.7 pg Normal 27.0-32.0 [facility] Comment on above: Performed By: #### L 100.0100, L500.4050, L501.2450 #### [facility] [address] [place], [address] MCHC (RBC) [Mass/Vol] 35.4 g/dL Normal 32-36 [facility] Comment on above: Performed By: #### L 100.0100, L500.4050, L501.2450 #### [facility] [address] [place], [address] MCV (RBC) [Entitic vol] 80.9 fL Normal 80-94 [facility] Comment on above: Performed By: #### L 100.0100, L500.4050, L501.2450 #### [facility] [address] [place], [address] Monocytes/100 WBC (Bld) 4.8 % Normal 0-[address] [facility] Comment on above: Performed By: #### L 100.0100, L500.4050, L501.2450 #### [facility] [address] [place], [address] Neutrophils/100 WBC (Bld) 75.9 % High 47-70 [facility] Comment on above: Performed By: #### L 100.0100, L500.4050, L501.2450 #### [facility] [address] [place], [address] Nucleated RBC (Bld) [#/Vol] 0 10*3/uL Normal 0-5 [facility] Comment on above: Performed By: #### L 100.0100, L500.4050, L501.2450 #### [facility] [address] [place], [address] Platelet mean volume (Bld) [Entitic vol] 10.6 fL Normal 6.2-12.0 [facility] Comment on above: Performed By: #### L 100.0100, L500.4050, L501.2450 #### [facility] [address] [place], [address] Platelets (Bld) [#/Vol] 237 10*3/uL Normal 150-450 [facility] Comment on above: Performed By: #### L 100.0100, L500.4050, L501.2450 #### [facility] [address] [place], [address] RBC (Bld) [#/Vol] 5.93 10*6/uL Normal 4.6-6.2 [facility] Comment on above: Performed By: #### L 100.0100, L500.4050, L501.2450 #### [facility] [address] [place], [address] RDW SD 37.0 fl Normal 35.1-43.9 [facility] Comment on above: Performed By: #### L 100.0100, L500.4050, L501.2450 #### [facility] [address] [place], [address] WBC (Bld) [#/Vol] 9.0 10*3/uL Normal 4.4-11.0 [facility] Comment on above: Performed By: #### L 100.0100, L500.4050, L501.2450 #### [facility] [address] [place], [address] CT Abd/Pelvis W/WO Contrasto n 03-16-2025 CT Abd/Pelvis W/WO Contrast [facility] Imaging Services [address] [place] [address] CT Abd/Pelvis W/WO Contrast MR#: [id number] Acct: [id number] Name: ALONDRA ARITA Rep #: [id number] : 1975 M 49 From: Justo Ortega MD PCP: Care Physician,No Primary Status: ADM IN Study: CT Abd/Pelvis W/WO Contrast Date of Exam: 02/20 12/13 Exam# [id number] Ordering Dr: Jose Guadalupe Puckett MD PROCEDURE: [...] to confirm stability possibly helpful. Reading Location: [id number] CC: Dr. Jose Guadalupe Puckett MD; No Primary Care Physician Artist Manager: Signed Normal [facility] Comprehensive Metabolic Prof ilon 03-16-2025 Albumin [Mass/Vol] 4.7 g/dL Normal 3.5-5.0 [facility] Comment on above: Performed By: #### L 100.0100, L500.4050, L501.2450 #### [facility] [address] [place], [place], [address] Albumin/Globulin [Mass ratio] 1.6 {ratio} Normal 0.9-2.4 [facility] Comment on above: Performed By: #### L 100.0100, L500.4050, L501.2450 #### [facility] [address] [place], [address] ALK PHOS 64 U/L Normal 40-129 [facility] Comment on above: Performed By: #### L 100.0100, L500.4050, L501.2450 #### [facility] [address] [place], [address] ALT [Catalytic activity/Vol] 370 U/L High <=46 [facility] Comment on above: Performed By: #### L 100.0100, L500.4050, L501.2450 #### [facility] [address] [place], [address] AST [Catalytic activity/Vol] 525 U/L High <=37 [facility] Comment on above: Result Comment: Hemo lysis present, Results??could be affected. ?? Performed By: #### L 100.0100, L500.4050, L501.2450 #### [facility] [address] [place], [address] Bilirubin [Mass/Vol] 1.60 mg/dL High 0.00-1.30 [facility] Comment on above: Performed By: #### L 100.0100, L500.4050, L501.2450 #### [facility] [address] [place], [address] BUN/CRE 13.1 RATIO Normal 10-20 [facility] Comment on above: Performed By: #### L 100.0100, L500.4050, L501.2450 #### [facility] [address] [place], [address] Calcium [Mass/Vol] 10.4 mg/dL Normal 7.6-11.0 [facility] Comment on above: Performed By: #### L 100.0100, L500.4050, L501.2450 #### [facility] [address] [place], [address] Chloride [Moles/Vol] 104 mmol/L Normal 98-108 [facility] Comment on above: Performed By: #### L 100.0100, L500.4050, L501.2450 #### [facility] [address] [place], [address] CO2 [Moles/Vol] 20.3 mmol/L Low 21.0-32.0 [facility] Comment on above: Performed By: #### L 100.0100, L500.4050, L501.2450 #### [facility] [address] [place], [address] Creatinine [Mass/Vol] 1.02 mg/dL Normal 0.70-1.20 [facility] Comment on above: Performed By: #### L 100.0100, L500.4050, L501.2450 #### [facility] [address] [place], [address] ECRCL 102.77 ml/min Normal 50-250 [facility] Comment on above: Performed By: #### L 100.0100, L500.4050, L501.2450 #### [facility] [address] [place], [address] GAP 14 Normal 5-15 [facility] Comment on above: Performed By: #### L 100.0100, L500.4050, L501.2450 #### [facility] [address] [place], [address] GFR/1.73 sq M.predicted among non-blacks MDRD (S/P/Bld) [Vol rate/Area] 90 mL/min/{1.73_m2} Normal >60 [facility] Comment on above: Result Comment: mL/m in/1.73m2 CKD-EPI Creatinine Equation (2020) Performed By: #### L 100.0100, L500.4050, L501.2450 #### [facility] [address] [place], [address] Globulin (S) [Mass/Vol] 2.9 g/dL Normal 2.2-4.[address] [facility] Comment on above: Performed By: #### L 100.0100, L500.4050, L501.2450 #### [facility] [address] [place], [address] Glucose [Mass/Vol] 118 mg/dL High 70-99 [facility] Comment on above: Performed By: #### L 100.0100, L500.4050, L501.2450 #### [facility] [address] [place], [address] Potassium [Moles/Vol] 4.2 mmol/L Normal 3.3-5.1 [facility] Comment on above: Result Comment: Hemo lysis present, Results??could be affected. ?? Performed By: #### L 100.0100, L500.4050, L501.2450 #### [facility] [address] [place], [address] Sodium [Moles/Vol] 138 mmol/L Normal 133-145 [facility] Comment on above: Performed By: #### L 100.0100, L500.4050, L501.2450 #### [facility] [address] [place], [address] T PROT 7.5 g/dL Normal 5.9-8.4 [facility] Comment on above: Performed By: #### L 100.0100, L500.4050, L501.2450 #### [facility] [address] [place], [address] Urea nitrogen [Mass/Vol] 13 mg/dL Normal 4-19 [facility] Comment on above: Performed By: #### L 100.0100, L500.4050, L501.2450 #### [facility] [address] [place], [address] ERCP Biliary Onlyon 03-16-20 ERCP Biliary Only [facility] Imaging Services [address] [place] [address] ERCP Biliary Only MR#: [id number] Acct: [id number] Name: ALONDRA ARITA Rep #: [id number] : 1975 M 49 From: Chino Elliott MD PCP: Care Physician,No Primary Status: ADM IN Study: ERCP Biliary Only Date of Exam: 03/16/25 Exam# [id number] Ordering Dr: Yevgeniy Sarah DO EXAM: ERCP [...] status post ERCP, as above. 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 The esophagus was successfully [...] stent was (more content not included)... Normal [facility] Emergency Department Summary on 03-16-2025 Emergency Department Summary [facility] Medical Records Department [address] [place] [address] Emergency Department Summary 03/16/25 MR#: [id number] Acct: [id number] Name: ALONDRA ARITA Rep #: [id number] : 1975 49 From: Lucretia Bear DO PCP: Care Physician,No Primary Status:ADM IN Location: [place] [address] HPI HPI - GI History of Present [...] other complaints or concerns at this time [facility] Medical History GERD (gastroesophageal reflux disease) Medical [...] some abn (more content not included)... Normal [facility] Gallbladderon 03-16-2025 Gallbladder [facility] Imaging Services [address] [place] [address] Gallbladder MR#: [id number] Acct: [id number] Name: ALONDRA ARITA Rep #: [id number] : 1975 M 49 From: Farzana Early MD PCP: Care Physician,No Primary Status: REG ER Study: Gallbladder Date of Exam: 03/16/25 Exam# [id number] Ordering Dr: Lucretia Bear DO PROCEDURE: GALLBLADDER [...] without an obstructing lesion seen. Reading Location: [id number] CC: Dr. Lucretia Bear DO; No Primary Care Physician Artist Manager: Signed Normal [facility] H AND P Exam - Hospitaliston 03-16-2025 H&P Exam - Hospitalist [facility] Medical Records Department [address] [place] [address] H P Exam - Hospitalist 03/16/25 1334 MR#: [id number] Acct: [id number] Name: ALONDRA ARITA Rep #: [id number] : 1975 49 From: Jose Guadalupe Puckett MD PCP: Care Physician,No Primary Status:ADM IN Location: [place]3 [id number] HPI - General General Date of Admission: [...] dilatation, liver lesion, described in assessment plan. [facility] Medical History GERD (gastroesophageal reflux disease) Medical [...] 75.9 H, Lymph % (Auto) 17.5 L, [place] % (Auto) 4.8, Eos % (Auto) 1.0, Baso % (Auto) 0.4, Ab (more content not included)... Normal [facility] International normalized rat io (INR) calculationOrdered By: Jose Guadalupe Puckett on 03-16-2025 INR Coag (Bld) [Relative time] 1.0 {INR} [facility] Ketones Test strip Ql (U)Ord ered By: Lucretia Bear on 03-16-2025 Ketones Ql (U) Negative Negative [facility] Lipaseon 03-16-2025 Lipase [Catalytic activity/Vol] 50 U/L Normal [facility] Comment on above: Result Comment: Cris elizalde note: LIPASE revised reference range effective 22. New Lipase methodology. Expected to produce lower values than the previous assay method. NEW Reference Range: 13 - 75 U/L Performed By: #### L 100.0100, L500.4050, L501.2450 #### [facility] [address] [facility] [place], [address] Lipase measurementOrdered By : Lucretia Bear on 03-16-2025 Lipase [Catalytic activity/Vol] 50 U/L [facility] Comment on above: Please note:LIPASE r evised reference range effective 22. New Lipase methodology. Expected to produce lower values than the previous assay method. NEW Reference Range: 13 - 75 U/L MR/CON.PCM.GIon 03-16-2025 MR/CON.PCM.GI [facility] Medical Records Department [address] [place] [address] Consultation - GI 03/16/25 1537 MR#: [id number] Acct: [id number] Name: ALONDRA ARITA Rep #: [id number] : 1975 49 From: Yevgeniy Sarah DO PCP: Care Physician,No Primary Status:ADM [facility] Consult Data Date of Consult: 03/16/25 [...] 75.9 H, Lymph % (Auto) 17.5 L, [place] % (Auto) 4.8, Eos % (Auto) 1.0, [...] Sl. Cloudy, Urine pH 6.0, Ur Specific [place] 1.010, Urine Protein Negative, Urine Glucose (UA) [...] without an obstructing lesion seen. Reading Location: [id number] Abdomen/Pelvis CT 03/16/25 12:05 IMPRESSION: Fatty liver. Well-defined lesion right lobe of liver favor focal nodular hyperplasia. Follow-up MR of the abdomen with Eovist in 4-6 months to confirm (more content not included)... Normal [facility] MR/OP.[facility]-16[facility]2025 [facility] Medical Records Department [address] [place] [address] Provation Physician Letter MR#: [id number] Acct: [id number] Name: ALONDRA ARITA Rep #: [id number] : 1975 49 From: Yevgeniy Sarah DO [...] Yevgeniy Toussaint Signature: Date (if indicated) CC: ROUSTABOUTMaliha Green; ROUSTABOUTMaliha Pavon; Dr. Jose Guadalupe Puckett MD; MERE Robles; No Primary Care Physician; Yevgeniy Sarah DO Date Dictated: 03/16/25 1524 Date Transcribed: Artist Manager: RF Signed [facility] MR/POSTOP.ANE 03-16-2025 MR/POSTOP.[facility] Medical Records Department [address] [place] [address] Anesthesia Postop Eval I 03/16/25 1638 MR#: [id number] Acct: [id number] Name: ALONDRA ARITA Rep #: [id number] : 1975 49 From: Rich Polo MD PCP: Care Physician,No Primary Status:DIS IN Y Race: C Location: [place] [address] Anesthesia: Postop Eval I Current Vital Signs [...] Signature: Date Dusty Wilson CRNA CC: Signed [facility] MR/OVDUUUCI2qd 03-16-2025 [facility] Medical Records Department [address] [place] [address] Anesthesia Postop Eval II 03/16/25 1655 MR#: [id number] Acct: [id number] Name: ALONDRA ARITA Rep #: [id number] : 1975 49 From: Armando Gomez MD PCP: Care Physician,No Primary Status:ADM IN Y Race: C Location: [place] [id number] Anesthesia Postop Eval I Sum Anesthesia Postop [...] MD Cosigner Signature: Date CC: Signed Normal [facility] Microscopic analysis of urin e for red blood cells (RBC)Ordered By: Lucretia Bear on 03-16-2025 Microscopic analysis of urine for red blood cells (RBC) 0 SEEN /hpf 0-5 [facility] Mucus LM Ql (Urine sed)Order ed By: Lucretia Bear on 03-16-2025 Mucus Ql (Urine sed) 0 SEEN /hpf [facility] Nitrite Test strip Ql (U)Ord ered By: Lucretia Bear on 03-16-2025 Nitrite Ql (U) Negative Negative [facility] O.R. Fluoro for C-Bentley 02-20 O.R. Fluoro for C-Arm [facility] Imaging Services [address] [place] [address] O.R. Fluoro for C-Arm MR#: [id number] Acct: [id number] Name: ALONDRA ARITA Rep #: [id number] : 1975 M 49 From: Ch[place] Elliott MD PCP: Care Physician,No Primary Status: ADM IN Study: O.R. Fluoro for C-Arm Date of Exam: 03/16/25 Exam# [id number] Ordering Dr: Yevgeniy Sarah DO EXAM: ERCP [...] status post ERCP, as above. Reading Location: [id number] CC: No Primary Care Physician; Yevgeniy Sarah DO Artist Manager: Signed Normal [facility] Protein Test strip Ql (U)Ord ered By: Lucretia Bear on 03-16-2025 Protein Ql (U) Negative Negative [facility] Prothrombin Time w/INRon INR Coag (PPP) [Relative time] 1.0 {INR} Normal [facility] Comment on above: Performed By: #### L 300.8790 #### [facility] [address] [place], [address] PT Coag (PPP) [Time] 13.3 s Normal 11.7-14.9 [facility] Comment on above: Performed By: #### L 300.5398 #### [facility] [address] [place], [place], [address] Prothrombin timeOrdered By: Jose Guadalupe Puckett on 03-16-2025 PT Coag (PPP) [Time] 13.3 s 11.7-14.9 [facility] Serum or plasma albumin/glob ulin mass ratioOrdered By: Lucretia Bear on 03-16-2025 Albumin/Globulin [Mass ratio] 1.6 {ratio} 0.9-2.4 [facility] Squamous epithelial cells de tection in urine sediment by light microscopyOrdered By: Lucretia Bear on 03-16-2025 Epithelial cells.squamous LM Ql (Urine sed) 0 SEEN /hpf 0-5 [facility] Urinalysis, Completeon 03-16 BACTERIA 0 SEEN Normal None Seen [facility] Comment on above: Order Comment: HOA CTOR TO SPECIFY Performed By: #### L 400.0001 ####[facility] [address] [place], [place], [phone] EPI,SQUAMOUS 0 SEEN Normal 0-5 [facility] Comment on above: Order Comment: HOA CTOR TO SPECIFY Performed By: #### L 400.0001 ####[facility] [address] [facility] [address] Mucus Ql (Urine sed) 0 SEEN Normal [facility] Comment on above: Order Comment: HOA CTOR TO SPECIFY Performed By: #### L 400.0001 ####[facility] [address] [place], [address] RBC 0 SEEN Normal 0-5 [facility] Comment on above: Order Comment: HOA CTOR TO SPECIFY Performed By: #### L 400.0001 ####[facility] [address] [place], [address] WBC 0 SEEN Normal 0-5 [facility] Comment on above: Order Comment: HOA CTOR TO SPECIFY Performed By: #### L 400.0001 ####[facility] [address] [place], [address] Urine clarityOrdered By: Celestina Bear on 03-16-2025 Clarity (U) Sl. Cloudy Clear [facility] Urine color determinationOrd ered By: Lucretia Bear on 03-16-2025 Color (U) Yellow Yellow [facility] Urine glucose detectionOrder ed By: Lucretia Bear on 03-16-2025 Glucose Ql (U) Normal mg/dl Normal [facility] Urine leukocyte esterase det ection by dipstickOrdered By: Lucretia Bear on 03-16-2025 Leukocyte esterase Test strip Ql (U) Negative Negative [facility] Urine pHOrdered By: Lucretia henry on 03-16-2025 pH (U) 6.0 [pH] 5.0 - 8.0 [facility] Urine sediment bacteria coun t by microscopy (number/high power field)Ordered By: Lucretia Bear on 03-16-2025 Bacteria LM.HPF (Urine sed) [#/Area] 0 /[HPF] None Seen [facility] Urine specific gravity measu rementOrdered By: Lucretia Bear on 03-16-2025 Specific gravity (U) [Rel density] 1.010 1.002-1.030 [facility] Urine urobilinogen measureme ntOrdered By: Lucretia Bear on 03-16-2025 Urobilinogen Ql (U) Normal mg/dl Normal [facility] White blood cell countOrdere d By: Lucretia Bear on 03-16-2025 White blood cell count 0 SEEN /hpf 0-5 [facility] Vital Signs Date Time Vital Sign Value Performing Clinician Kimmy stearns 03-23-2025 08:49-0400 Body height 170.18 cm No Primary Care Physician [facility] 03-23-2025 08:49-0400 Body mass index (BMI) [Ratio] 36.2 kg/m2 No Primary Care Physician [facility] 03-23-2025 08:49-0400 Body temperature 97.2 [degF] No Primary Care Physician [facility] 03-23-2025 08:49-0400 Body weight 105 kg No Primary Care Physician [facility] 03-23-2025 08:49-0400 Diastolic blood pressure 74 mm[Hg] No Primary Care Physician [facility] 03-23-2025 08:49-0400 Heart rate 78 /min No Primary Care Physician [facility] 03-23-2025 08:49-0400 Respiratory rate 18 /min No Primary Care Physician [facility] 03-23-2025 08:49-0400 SaO2% (BldA) [Mass fraction] 99 % No Primary Care Physician [facility] 03-23-2025 08:49-0400 Systolic blood pressure 108 mm[Hg] No Primary Care Physician [facility] 03-20-2025 08:56-0400 Body temperature 97.7 [degF] No Primary Care Physician [facility] 03-20-2025 08:56-0400 Diastolic blood pressure 52 mm[Hg] No Primary Care Physician [facility] 03-20-2025 08:56-0400 Heart rate 76 /min No Primary Care Physician [facility] 03-20-2025 08:56-0400 Respiratory rate 16 /min No Primary Care Physician [facility] 03-20-2025 08:56-0400 SaO2% (BldA) [Mass fraction] 93 % No Primary Care Physician [facility] 03-20-2025 08:56-0400 Systolic blood pressure 95 mm[Hg] No Primary Care Physician [facility] 03-18-2025 06:00-0400 Body mass index (BMI) [Ratio] 26 kg/m2 No Primary Care Physician [facility] 03-18-2025 06:00-0400 Body weight 107.2 kg No Primary Care Physician [facility] 03-16-2025 13:04-0400 Body height 203.2 cm No Primary Care Physician [facility] Encounters Encounter Date Encounter Type Care Provider Facility Start: 04-04-2025 End: 04-04-2025 ambulatory No Primary Care Physician Facility:[facility] Start: 03-23-2025 End: 03-23-[address] Abbie Philip MD -[facility] Work Phone: Start: 03-23-2025 End: 03-23-2025 ambulatory No Primary Care Physician -[facility] Start: 03-18-2025 Non-patient / Non-visit Dr. Jose Guadalupe Puckett MD -[facility] Work Phone: Start: 03-17-2025 Non-patient / Non-visit Dr. Jose Guadalupe Puckett MD -[facility] Work Phone: Start: 03-16-2025 Non-patient / Non-visit Yevgeniy Soliman nd DO -[facility] Start: 03-16-2025 Non-patient / Non-visit Dr. Jose Guadalupe Puckett MD -[facility] Work Phone: Start: 03-16-2025 ambulatory [...] Activity Detail Author Start: 03-18-2025 Patient discharge [facility] Start: 03-16-2025 Application of inter mittent pneumatic compression device [facility] Start: 03-16-2025 Ambulation without limitation [facility] Start: 03-16-2025 Assessment of risk o f venous thromboembolism [facility] Start: 03-16-2025 [address] of cathete r into peripheral vein [facility] Start: 03-16-2025 Measuring intake and output [facility] Start: 03-16-2025 Oxygen therapy [facility] Start: 03-16-2025 Providing care accor ding to standard [facility] Start: 03-16-2025 Provision of activit y privileges [facility] Start: 03-16-2025 Referral for physica l therapy [facility] Start: 03-16-2025 Referral to gastroen terology service [facility] Start: 03-16-2025 Referral to occupati onal therapist [facility] Start: 03-16-2025 Following clinical p athway protocol [facility] Start: 03-16-2025 End: 03-16-2025 [facility] Start: 03-16-2025 Admission procedure [facility] Patient Education Soft Diet Ch D c Low-Fat Cooking Tips Soft Placer Diet Dc [facility] Work Phone: Immunizations Immunization Date Immunization Notes Care Provider Fa cility 03-17-2025 influenza, seasonal, injectable, preservative free No Primary Care Physician [facility] Payers Date Payer Category Payer Self-pay 2025 Unknown [id number] Unknown [id number] 2.16.8 [id number] Unknown [id number] 2.16.8 [id number] Unknown [id number] 2.16.8 [id number] Unknown [id number] 2.16.8 [id number] Unknown [id number] 2.16.8 [id number] Unknown [id number] 2.16.8 [id number] Unknown [id number] 2.16.8 [id number] Unknown [id number] 2.16.8 [id number] Social History Date Type Detail Facility Start: 03-16-2025 End: 03-23-2025 Tobacco smoking status NHIS Never smoked tobacco (finding) [facility] Sex Male [facility] Start: 1975 Sex Assigned At Male [facility] Medical Equipment Procedure Code Equipment Code Equipment [...] Assessment Result Facility 03-18-2025 Functional status Ambulates [facility] Work Phone: Mental Status Date Assessment Result Facility 03-18-2025 Cognitive function Voice/Name [facility] Work Phone: Clinical Notes 03-16-2025 to 04-04-2025 Note Date & Type Note Facility 04-04-2025 Note [facility] Medical Records Department [address] [place] [address] History Physical Exam 04/04/25 1154 MR#: [id number] Acct: [id number] Name: ALONDRA ARITA Rep #: [id number] : 1975 49 From: Abbie Philip MD PCP: Care Physician,No Primary Status:[facility] Location: [place] [address] History and Physical Date of Admission: 04/04/25 Date of Service: 03/23/25 MR#: [id number] Acct: [id number] Name: ALONDRA ARITA Rep #: [id number] : 1975 Provider: Dr. Abbie Philip MD Age/Sex: 49/M Location: [facility] Status: Signed Intake Vital Signs 03/16/2513:04 03/23/2508:49 [...] healthy appearing, comfortable and no acute distress [facility] Head: normocephalic and atraumatic Neck Neck: [...] the procedure: Robotic/la (more content not included)... [facility] 03-18-2025 Consult note [facility] 03-18-2025 Procedure note [facility] 03-18-2025 Procedure note [facility] 03-18-2025 Discharge summary Note Date/Time March 18, 2025 9:46am [facility] Medical Records Department [address] [place] [address] Discharge Summary 03/18/25 0940 MR#: [id number] Acct: [id number] Name: ALONDRA ARITA Rep #:[id number] : 1975 49 From: Jose Guadalupe White PCP: Care Physician,No Primary Status :ADM IN Location: [place] [address] Providers Date of Admission: 03/16/25 Date of [...] of choledocholithiasis: Patient is being admitted to [facility] floor. RUQ sonogram shows cholelithiasis without signs [...] shock if needed Total time spent in ixnj-rv-erda encounter in discussion of advanced directive 17 [...] (Auto) 75.9 H, Lymph % (Auto) 17.5 L,[place] % (Auto) 4.8, Eos % (Auto) 1.0, [...] Sl. Cloudy, Urine pH 6.0, Ur Specific [place] 1.010, Urine Protein Negative, Urine Glucose (UA) [...] (Auto) 83.5 H, Lymph % (Auto) 12.9 L,[place] % (Auto) 3.1, Eos % (Auto) 0.0, [...] to confirm stability possibly helpful. Reading Location: [id number] Medications at Discharge Home Medications amoxicillin 875 [...] without an obstructing lesion seen. Reading Location: [facility] Abdomen/Pelvis CT 03/16/25 12:05 IMPRESSION: Fatty liver. Well-defined lesion right lobe of liver favor focal nodular hyperplasia. Follow-up MR of the abdomen with Eovist in 4-6 months to confirm stability possibly helpful. Reading Location: [facility] C-Arm Fluoroscopy 03/16/25 15:55 IMPRESSION: Intraoperative fluoroscopy status post ERCP, as above. Reading Location: [facility] ERCP X-Ray 03/16/25 15:55 IMPRESSION: Intraoperative fluoroscopy status post ERCP, as above. Reading Location: [facility] Physical Exam Narrative Seen and examined. Abdominal [...] Alex Instructions Additional Instructions / Restrictions: Advised jkjb-djc-dfvetzv Tylenol 500 mg to 1000 mg Q6 hourly as needed for fevermore than 102 Fahrenheit and moderate to severe pain respectively. Jkau-jxk-cawzwah, probiotic, lactobacillus/acidophilus 1 tablet twice daily for [...] Self Care Charges/Coding Visit Charges Inpatient E&M: 71765 Disch Hosp >30min 03/18/25 0946 <Electronically signed by Jose Guadalupe Puckett MD> Cosigner Signature (if applicable): CC: Dr. Jose Guadalupe Puckett MD; Dr. Abbie Philip MD; No Primary Care Physician;Yevgeniy Sarah DO~ Signed [facility] Work Phone: 1(544) 416-516209-28-2025 Discharge summary Author Jose Guadalupe Puckett [facility] Note Date/Time March 18, 2025 9:40am [facility] Medical Records Department [address] [place] [address] Instructions for Home/Discharge Instructions 03/18/25934 MR#: [id number] Acct: [id number] Name: ALONDRA ARITA Rep #:[id number] : 1975 49 From: Jose Guadalupe White [...] Alex Instructions Additional Instructions / Restrictions: Advised bmza-qtt-rdytwem Tylenol 500 mg to 1000 mg Q6 hourly as needed for fevermore than 102 Fahrenheit and moderate to severe pain respectively. Qwug-hgv-xzpqdxk, probiotic, lactobacillus/acidophilus 1 tablet twice daily for [...] Guadalupe Puckett MD>Jose Guadalupe Puckett MD CC: ROUSTABOUTMaliha Green; JACOBO-C Apolonia Pavon; Dr. Jose Guadalupe Puckett MD; MERE Mcpherson; No Primary Care Physician; Yevgeniy Sarah, DO ~ Signed [facility] Work Phone: 1(829) 508-616509-28-2025 Discharge summary [facility] Medical Records Department [address] [place] [address] Discharge Summary 03/18/25 0940 MR#: [id number] Acct: [id number] Name: ALONDRA ARITA Rep #:[id number] : 1975 49 From: Jose Guadalupe White PCP: Care Physician,No Primary Status :ADM IN Location: [place] [address] Providers Date of Admission: 03/16/25 Date of [...] shock if needed Total time spent in gvtt-yw-djfv encounter in discussion of advanced directive 17 [...] (Auto) 75.9 H, Lymph % (Auto) 17.5 L,[place] % (Auto) 4.8, Eos % (Auto) 1.0, [...] Sl. Cloudy, Urine pH 6.0, Ur Specific [place] 1.010, Urine Protein Negative, Urine Glucose (UA) [...] (Auto) 83.5 H, Lymph % (Auto) 12.9 L,[place] % (Auto) 3.1, Eos % (Auto) 0.0, [...] to confirm stability possibly helpful. Reading Location: [facility] Medications at Discharge Home Medications amoxicillin [...] without an obstructing lesion seen. Reading Location: [facility] Abdomen/Pelvis CT 03/16/25 12:05 IMPRESSION: Fatty liver. Well-defined lesion right lobe of liver favor focal nodular hyperplasia. Follow-up MR of the abdomen with Eovist in 4-6 months to confirm stability possibly helpful. Reading Location: [facility] C-Arm Fluoroscopy 03/16/25 15:55 IMPRESSION: Intraoperative fluoroscopy status post ERCP, as above. Reading Location: [id number] ERCP X-Ray 03/16/25 15:55 IMPRESSION: Intraoperative fluoroscopy status post ERCP, as above. Reading Location: [facility] Physical Exam Narrative Seen and examined. Abdominal [...] Alex Instructions Additional Instructions / Restrictions: Advised rhqr-utx-ceavadu Tylenol 500 mg to 1000 mg Q6 hourly as needed for fevermore than 102 Fahrenheit and moderate to severe pain respectively. Rhiz-ths-wfcoydz, probiotic, lactobacillus/acidophilus 1 tablet twice daily for [...] Self Care Charges/Coding Visit Charges Inpatient E&M: 13370 Disch Hosp >30min 03/18/25 0946 Cosigner Signature (if applicable): CC: Dr. Jose Guadalupe Puckett MD; Dr. Abbie Philip MD; No Primary Care Physician;Yevgeniy Sarah DO~ Signed [facility]09-28-2025 Discharge summary [facility] Medical Records Department [address] [place] [address] Instructions for Home/Discharge Instructions 03/18/25 0935 MR#: [id number] Acct: [id number] Name: ALONDRA ARITA Rep #:[id number] : 1975 49 From: Jose Guadalupe White [...] Alex Instructions Additional Instructions / Restrictions: Advised vdwj-hte-hvsolvs Tylenol 500 mg to 1000 mg Q6 hourly as needed for fevermore than 102 Fahrenheit and moderate to severe pain respectively. Rfgv-gfd-pgdpkjp, probiotic, lactobacillus/acidophilus 1 tablet twice daily for [...] Care 03/18/25 09Jose Guadalupe Puckett MD CC: ROUSTABOUTMaliha Green; ROUSTABOUTMaliha Pavon; Dr. Jose Guadalupe Puckett MD; MERE Mcpherson; No Primary Care Physician; Yevgeniy Sarah DO ~ Signed [facility]09-28-2025 [facility] Medical Records Department [address] [place] [address] Discharge Summary 03/18/25939 MR#: [id number] Acct: [id number] Name: ALONDRA ARITA Rep #: [id number] : 1975 49 From: Jose Guadalupe Puckett MD PCP: Care Physician,No Primary Status:ADM IN [facility] Providers Date of Admission: 03/16/25 Date of [...] of choledocholithiasis: Patient is being admitted to [facility] floor. RUQ sonogram shows cholelithiasis without signs [...] feed, ventilator and/chest co (more content not included)...[facility]09-27-2025 Discharge summary Author Lucretia Bear [facility] Note Date/Time March 17, 2025 3:21pm [facility] Medical Records Department [address] [place] [address] Emergency Department Summary 03/16/25 MR#: [id number] Acct: [id number] Name: ALONDRA ARITA Rep #:[id number] : 1975 49 From: Lucretia Albert PCP: Care Physician,No Primary Status :ADM IN Location: [facility] JZ056-2 HPI HPI - GI History of Present [...] other complaints or concerns at this time [facility] Medical History GERD (gastroesophageal reflux disease) Medical [...] 75.9 H Lymph % (Auto) 17.5 L [place] % (Auto) 4.8 Eos % (Auto) 1.0 [...] Sl. Cloudy Urine pH 6.0 Ur Specific [place] 1.010 Urine Protein Negative Urine Glucose (UA) [...] without an obstructing lesion seen. Reading Location: [facility] Abdomen/Pelvis CT 03/16/25 12:05 IMPRESSION: Fatty liver. Well-defined lesion right lobe of liver favor focal nodular hyperplasia. Follow-up MR of the abdomen with Eovist in 4-6 months to confirm stability possibly helpful. Reading Location: [facility] Rhythm Strip Rhythm Strip: Sinus Rhythm Rate: 76 Ectopy: None EKG Initial EKG: Attestation: I personally reviewed and interpreted this EKG as follows: Interpretation: Sinus Rhythm Comments: Normal sinus rhythm rate of 76 bpm with sinus arrhythmia Normal axis Normal intervals Normal ST segments Management Discussion w/another healthcare provider: Hospitalist and Hand Button Splitter Discharge Plan Dx/Rx/DC Orders Clinical Impression: Cholelithiasis with acute on chronic cholecystitis Disposition Disposition: Acute Care Hospital [facility] Discharge Date/Time: 03/16/25 12:44 What to do if you have Problems For any increased pain, shortness of breath, bleeding, nausea or vomiting, chestpain, or any unexpected problems, contact your Primary Care Provider. Call [facility] ([phone]) or report to the closest Emergency Room. Call 911 if necessary. 03/17/25 1521 <Electronically signed by Lucretia Bear DO> Cosigner Signature (if applicable): CC: No Primary Care Physician ~ Signed [facility] Work Phone: 1(650) 818-352709-27-2025 Discharge summary [facility] Medical Records Department [address] [place] [address] Emergency Department Summary 03/16/25 MR#: [id number] Acct: [id number] Name: ALONDRA ARITA Rep #:[id number] : 1975 49 From: Lucretia Albert PCP: Care Physician,No Primary Status :ADM IN Location: [facility] JS599-4 HPI HPI - GI History of Present [...] other complaints or concerns at this time [facility] Medical History GERD (gastroesophageal reflux disease) Medical [...] 75.9 H Lymph % (Auto) 17.5 L [place] % (Auto) 4.8 Eos % (Auto) 1.0 [...] Sl. Cloudy Urine pH 6.0 Ur Specific [place] 1.010 Urine Protein Negative Urine Glucose (UA) [...] without an obstructing lesion seen. Reading Location: [id number][facility] Abdomen/Pelvis CT 03/16/25 12:05 IMPRESSION: Fatty liver. Well-defined lesion right lobe of liver favor focal nodular hyperplasia. Follow-up MR of the abdomen with Eovist in 4-6 months to confirm stability possibly helpful. Reading Location: [id number] Rhythm Strip Rhythm Strip: Sinus Rhythm Rate: 76 Ectopy: None EKG Initial EKG: Attestation: I personally reviewed and interpreted this EKG as follows: Interpretation: Sinus Rhythm Comments: Normal sinus rhythm rate of 76 bpm with sinus arrhythmia Normal axis Normal intervals Normal ST segments Management Discussion w/another healthcare provider: Hospitalist and Hand Button Splitter Discharge Plan Dx/Rx/DC Orders Clinical Impression: Cholelithiasis with acute on chronic cholecystitis Disposition Disposition: Acute Care Hospital [facility] Discharge Date/Time: 03/16/25 12:44 What to do if you have Problems For any increased pain, shortness of breath, bleeding, nausea or vomiting, chestpain, or any unexpected problems, contact your Primary Care Provider. Call [facility] ([phone]) or report tothe closest Emergency Room. Call 911 if necessary. 03/17/25 1521 Cosigner Signature (if applicable): CC: No Primary Care Physician ~ Signed [facility]09-27-2025 Progress note Author Jose Guadalupe Puckett [facility] Note Date/Time March 17, 2025 1:02pm [facility] Medical Records Department [address] [place] [address] Progress Note - Hospitalist 03/17/25 0754 MR#: [id number] Acct: [id number] Name: ALONDRA ARITA Rep #:[id number] : 1975 49 From: Jose Guadalupe White PCP: Care Physician,No Primary Status :ADM IN Location: [place] [address] Reason for Visit Chief Complaint: Right upper [...] (Auto) 75.9 H, Lymph % (Auto) 17.5 L,[place] % (Auto) 4.8, Eos % (Auto) 1.0, [...] Sl. Cloudy, Urine pH 6.0, Ur Specific [place] 1.010, Urine Protein Negative, Urine Glucose (UA) [...] (Auto) 83.5 H, Lymph % (Auto) 12.9 L,[place] % (Auto) 3.1, Eos % (Auto) 0.0, [...] without an obstructing lesion seen. Reading Location: [facility] Abdomen/Pelvis CT 03/16/25 12:05 IMPRESSION: Fatty liver. Well-defined lesion right lobe of liver favor focal nodular hyperplasia. Follow-up MR of the abdomen with Eovist in 4-6 months to confirm stability possibly helpful. Reading Location: [id number][facility]TS C-Arm Fluoroscopy 03/16/25 15:55 IMPRESSION: Intraoperative fluoroscopy status post ERCP, as above. Reading Location: [id number]-HECHETR-XR ERCP X-Ray 03/16/25 15:55 IMPRESSION: Intraoperative fluoroscopy status post ERCP, as above. Reading Location: [facility] Rhythm Strip Rhythm Strip: Sinus Rhythm Rate: [...] shock if needed Total time spent in kkko-tm-ulnz encounter in discussion of advanced directive 17 minutes. Laboratory Results 03/16/25 09:54: WBC 9.0, RBC 5.93, Hgb 17.0 H, Hct 48.0, MCV 80.9, MCH 28.7, MCHC 35.4, RDW Std Deviation 37.0, RDW Coeff of Ghulam 12.7, Plt Count 237, MPV 10.6, Immature Gran % (Auto) 0.400, Neut % (Auto) 75.9 H, Lymph % (Auto) 17.5 L,[place] % (Auto) 4.8, Eos % (Auto) 1.0, [...] Sl. Cloudy, Urine pH 6.0, Ur Specific [place] 1.010, Urine Protein Negative, Urine Glucose (UA) [...] (Auto) 83.5 H, Lymph % (Auto) 12.9 L,[place] % (Auto) 3.1, Eos % (Auto) 0.0, [...] to confirm stability possibly helpful. Reading Location: [id number] Charges/Coding Visit Charges Inpatient E&M: 79547 Subs Hosp L2 03/17/25 1305 <Electronically signed by Jose Guadalupe Puckett MD> Cosigner Signature (if applicable): CC: ~ Signed [facility] Work Phone: 1(529) 463-484809-27-2025 Progress note [facility] Medical Records Department [address] [place] [address] Progress Note - Hospitalist 03/17/25 0460 MR#: [id number] Acct: [id number] Name: ALONDRA ARITA Rep #:[id number] : 1975 49 From: Jose Guadalupe Italo M D PCP: Care Physician,No Primary Status :ADM IN Location: [facility] [id number] Reason for Visit Chief Complaint: Right upper [...] (Auto) 75.9 H, Lymph % (Auto) 17.5 L,[place] % (Auto) 4.8, Eos % (Auto) 1.0, [...] Sl. Cloudy, Urine pH 6.0, Ur Specific [place] 1.010, Urine Protein Negative, Urine Glucose (UA) [...] (Auto) 83.5 H, Lymph % (Auto) 12.9 L,[place] % (Auto) 3.1, Eos % (Auto) 0.0, [...] without an obstructing lesion seen. Reading Location: [facility] Abdomen/Pelvis CT 03/16/25 12:05 IMPRESSION: Fatty liver. Well-defined lesion right lobe of liver favor focal nodular hyperplasia. Follow-up MR of the abdomen with Eovist in 4-6 months to confirm stability possibly helpful. Reading Location: [facility] C-Arm Fluoroscopy 03/16/25 15:55 IMPRESSION: Intraoperative fluoroscopy status post ERCP, as above. Reading Location: [facility] ERCP X-Ray 03/16/25 15:55 IMPRESSION: Intraoperative fluoroscopy status post ERCP, as above. Reading Location: [facility] Rhythm Strip Rhythm Strip: Sinus Rhythm Rate: [...] of choledocholithiasis: Patient is being admitted to [facility] floor. RUQ sonogram shows cholelithiasis without signs [...] shock if needed Total time spent in wxwi-hj-jjlq encounter in discussion of advanced directive 17 minutes. Laboratory Results 03/16/25 09:54: WBC 9.0, RBC 5.93, Hgb 17.0 H, Hct 48.0, MCV 80.9, MCH 28.7, MCHC 35.4, RDW Std Deviation 37.0, RDW Coeff of Ghulam 12.7, Plt Count 237, MPV 10.6, Immature Gran % (Auto) 0.400, Neut % (Auto) 75.9 H, Lymph % (Auto) 17.5 L,[place] % (Auto) 4.8, Eos % (Auto) 1.0, [...] Sl. Cloudy, Urine pH 6.0, Ur Specific [place] 1.010, Urine Protein Negative, Urine Glucose (UA) [...] (Auto) 83.5 H, Lymph % (Auto) 12.9 L,[place] % (Auto) 3.1, Eos % (Auto) 0.0, [...] to confirm stability possibly helpful. Reading Location: [id number] Charges/Coding Visit Charges Inpatient E&M: 10727 Subs Hosp L2 03/17/25 1302 Cosigner Signature (if applicable): CC: ~ Signed [facility]09-26-2025 Radiology Diagnostic study note [facility] Imaging Services [address] [place] [address] ERCP Biliary Only MR#: [id number] Acct: [id number] Name: ALONDRA ARITA Rep #: [id number] : 1975 M 49 From: Tesfaye Elliott MD PCP: Care Physician,No Primary Status: ADM IN Study:ERCP Biliary Only Date of Exam: Exam# [id number] Ordering Dr: Lobito Sarah DO EXAM: ERCP [...] Primary Care Physician; Yevgeniy Sarah DO ~ Artist Manager: Signed [facility]09-26-2025 Radiology Diagnostic study note [facility] Imaging Services [address] [place], [place] [id number] O.R. Fluoro for C-Arm MR#: [id number] Acct: [id number] Name: ALONDRA ARITA Rep #: [id number] : 1975 M 49 From: Tesfaye Elliott MD PCP: Care Physician,No Primary Status: ADM IN Study:O.R. Fluoro for C-Arm Date of Exam: 03/16/25 Exam# [id number] Ordering Dr: Lobito Sarah DO EXAM: ERCP [...] status post ERCP, as above. Reading Location: [id number] CC: No Primary Care Physician; DO Funmilayo Hood Artist Manager: Signed [facility]09-26-2025 Consult note Author Armando Gomez [facility] Note Date/Time March 18, 2025 12:45pm [facility] Medical Records Department [address] [place] [address] Anesthesia Postop Eval II 03/16/251654 MR#: [id number] Acct: [id number] Name: ALONDRA ARITA Rep #:[id number] : 1975 49 From: Armando White PCP: Care Physician,No Primary Status :ADM IN Y Race: C Location: [place] [address] Anesthesia Postop Eval I Sum Anesthesia Postop [...] Armando Galaviz Signature: Date CC: ~ Signed [facility] Work Phone: 1(869) 198-188409-26-2025 Consult note Author Yevgeniy Sarah [facility] Note Date/Time March 16, 2025 3:40pm [facility] Medical Records Department [address] [place] [address] Consultation - GI 03/16/25 1537 MR#: [id number] Acct: [id number] Name: ALONDRA ARITA Rep #:[id number] : 1975 49 From: Yevgeniy Sarah DO PCP: Care Physician,No Primary Status :ADM IN Location: [facility] OS982-3 HPI Consult Data Date of Consult: 03/16/25 [...] and chalupa) around 6 PM and then PM had a cold cut sandwich and [...] (Auto) 75.9 H, Lymph % (Auto) 17.5 L,[place] % (Auto) 4.8, Eos % (Auto) 1.0, [...] Sl. Cloudy, Urine pH 6.0, Ur Specific [place] 1.010, Urine Protein Negative, Urine Glucose (UA) [...] without an obstructing lesion seen. Reading Location: [facility] Abdomen/Pelvis CT 03/16/25 12:05 IMPRESSION: Fatty liver. Well-defined lesion right lobe of liver favor focal nodular hyperplasia. Follow-up MR of the abdomen with Eovist in 4-6 months to confirm stability possibly helpful. Reading Location: IKJ-ARONTEJ-GV Assessment & Plan Assessment/Plan (1) Cholelithiasis with [...] Lipase 49. Charges/Coding Visit Charges Inpatient E&M: 44328 Init Hosp L3 03/16/25 1540 <Electronically signed by Yevgeniy Friend DO> Cosigner Signature (if applicable): CC: No Primary Care Physician~ Signed [facility] Work Phone: 1(805) 426-453209-26-2025 Consult note Author Armando Gomez [facility] Note Date/Time March 16, 2025 2:34pm [facility] Medical Records Department [address] [place] [address] Pre-Anesthesia Evaluation 03/16/25 1433 MR#: [id number] Acct: [id number] Name: ALONDRA ARITA Rep #:[id number] : 1975 49 From: Armando White PCP: Care Physician,No Primary Status :ADM IN Y Race: C Location: [place] [address] ASA Classification* ASA Classification ASA Classification: 1 [...] Procedure(s): ERCP Anesthesia History Anesthesia History - 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: Anesthesia History - 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 Hx Hospitalization Any Problems With Anesthesia No [...] take am of surgery PONV PONV - 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: PONV - 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 Female HX of Motion Sickness HX of N/V After Surgery Non-Smoker Duration of Surgery greater than 60 minutes Number of Risk Factors PONV Score Height & Weight Height & Weight: Anesthesia: Height & Weight Height 6 ft 8 in 03/16/25 13:04 Weight: 106.141 kg 03/16/25 13:04 Body Mass Index (BMI) 25.7 03/16/25 13:04 Respiratory Assessment Respiratory Assessment - 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: Respiratory Tract Infection Hx - 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 Hx Respiratory Tract Infection No 03/16/25 13:51 STOP Sleep Apnea STOP Sleep Apnea - 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: STOP Sleep Apnea - 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 Hx Hypertension No 03/16/25 13:53 Hx Sleep [...] Tobacco Use History Tobacco Use History - 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: Tobacco Use History - 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 Tobacco Use Smoking Status Never smoker 03/16/25 13:04 Hx Tobacco Use No 03/16/25 13:04 Years Smoking Packs Smoked per Day Smoking Cessation Date was within the last 15 years Hx Smoking Cessation Date Hx Smoking Cessation Counseling Hematologic Medial History Hematologic Hx - 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: Hematologic Medical Hx - scrapper Hx of Blood Transfusion No 03/16/25 13:04 [...] confused, unrespo /Reproduction History /Reproductive History - 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: /Reproductive Hx- 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 Hx Now No 03/16/25 13:51 Gestational Age [...] mls @ 15 mls/hr 03/16/25 13:09 IV .[id number] PRN Saline Flush Sodium Chloride 250 mls @ 15 mls/hr 03/16/25 13:09 IV .[id number] PRN Additional IVPB Infusion Piperacillin Sod/Tazobactam 50 mls @ 12.5 mls/hr 03/16/25 13:30 03/16/25 13:40 Sod 3.375 gm/ Sodium Chloride IV 12.5 mls/hr Q8 DIA Administration Sodium Chloride 1,000 mls @ 75 mls/hr 03/16/25 13:32 03/16/25 13:43 IV 03/17/25 16:11 75 mls/hr .[id number] DIA Administration Influenza Virus Vacc Trival Recomb [...] MD Cosigner Signature: Date CC: ~ Signed [facility] Work Phone: 1(995) 560-203509-26-2025 History and physical note Author Jose Guadalupe Puckett [facility] Note Date/Time March 16, 2025 2:14pm [facility] Medical Records Department [address] [place] [address] H&P Exam - Hospitalist 03/16/25 1334 MR#: [id number] Acct: [id number] Name: ALONDRA ARITA Rep #:[id number] : 1975 49 From: Jose Guadalupe White PCP: Care Physician,No Primary Status :ADM IN Location: [place] 964195-1 HPI - General General Date of Admission: [...] dilatation, liver lesion, described in assessment plan. [facility] Medical History GERD (gastroesophageal reflux disease) Medical [...] RDW Std Deviation 37.0, RDW Coeff of Guhlam 12.7, Plt Count 237, MPV 10.6, Immature Gran % (Auto) 0.400, Neut % (Auto) 75.9 H, Lymph % (Auto) 17.5 L,[place] % (Auto) 4.8, Eos % (Auto) 1.0, [...] Sl. Cloudy, Urine pH 6.0, Ur Specific [place] 1.010, Urine Protein Negative, Urine Glucose (UA) [...] without an obstructing lesion seen. Reading Location: [facility] Assessment & Plan Assessment/Plan (1) Cholelithiasis with acute on chronic cholecystitis: PLAN: Plan 49-year-old gentleman came to ED with right upper and epigastric abdominal pain since 1:30 AM today with nausea. 1. Acute on chronic GB colic with cholelithiasis with suspicion of choledocholithiasis: Patient is being admitted to [facility] floor. RUQ sonogram shows cholelithiasis without signs [...] shock if needed Total time spent in fnds-um-eusv encounter in discussion of advanced directive 17 minutes. Laboratory Results 03/16/25 09:54: WBC 9.0, RBC 5.93, Hgb 17.0 H, Hct 48.0, MCV 80.9, MCH 28.7, MCHC 35.4, RDW Std Deviation 37.0, RDW Coeff of Ghulam 12.7, Plt Count 237, MPV 10.6, Immature Gran % (Auto) 0.400, Neut % (Auto) 75.9 H, Lymph % (Auto) 17.5 L,[place] % (Auto) 4.8, Eos % (Auto) 1.0, [...] Sl. Cloudy, Urine pH 6.0, Ur Specific [place] 1.010, Urine Protein Negative, Urine Glucose (UA) [...] to confirm stability possibly helpful. Reading Location: [facility] Charges/Coding Visit Charges Inpatient E&M: 66395 Init Hosp L3 Procedures Hospitalists Procedures: 34104 Advncd Care Plan 30 Min 03/16/25 1414 <Electronically signed by Jose Guadalupe Puckett MD> Cosigner Signature (if applicable): CC: Dr. Jose Guadalupe Puckett MD; Dr. Abbie Philip MD; No Primary Care Physician;Yevgeniy Sarah DO~ Signed [facility] Work Phone: 1(568) 333-432509-26-2025 Consult note [facility] Medical Records Department [address] [place] [address] Consultation - GI 03/16/25 1537 MR#: [id number] Acct: [id number] Name: ALONDRA ARITA Rep #:[id number] : 1975 49 From: Yevgeniy Sarah DO PCP: Care Physician,No Primary Status :ADM IN Location: [place] 964195-1 HPI Consult Data Date of Consult: 03/16/25 [...] and chalupa) around 6 PM and then [id number] PM had a cold cut sandwich and [...] (Auto) 75.9 H, Lymph % (Auto) 17.5 L,[place] % (Auto) 4.8, Eos % (Auto) 1.0, [...] Sl. Cloudy, Urine pH 6.0, Ur Specific [place] 1.010, Urine Protein Negative, Urine Glucose (UA) [...] without an obstructing lesion seen. Reading Location: [id number] Abdomen/Pelvis CT 03/16/25 12:05 IMPRESSION: Fatty liver. Well-defined lesion right lobe of liver favor focal nodular hyperplasia. Follow-up MR of the abdomen with Eovist in 4-6 months to confirm stability possibly helpful. Reading Location: [id number] Assessment & Plan Assessment/Plan (1) Cholelithiasis with [...] Lipase 50. Charges/Coding Visit Charges Inpatient E&M: 84355 Init Hosp L3 03/16/25 1540 Cosigner Signature (if applicable): CC: No Primary Care Physician~ Signed [facility]09-26-2025 Evaluation note* Diagnosis Onset Date Resolution Status Admit Date Cholelithiasis with acute on chronic cholecystitis acute March 16, 2025 12:53pm [facility] Work Phone: 1(782) 562-176009-26-2025 Consult note [facility] Medical Records Department [address] [place] [address] Pre-Anesthesia Evaluation 03/16/25 1433 MR#: [id number] Acct: [id number] Name: ALONDRA ARITA Rep #:[id number] : 1975 49 From: Armando White PCP: Care Physician,No Primary Status :ADM IN Y Race: C Location: [place] 964195 -1 ASA Classification* ASA Classification ASA Classification: [...] Procedure(s): ERCP Anesthesia History Anesthesia History - 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: Anesthesia History - 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 Hx Hospitalization Any Problems With Anesthesia No [...] take am of surgery PONV PONV - 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: PONV - 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 Female HX of Motion Sickness HX of N/V After Surgery Non-Smoker Duration of Surgery greater than 60 minutes Number of Risk Factors PONV Score Height & Weight Height & Weight: Anesthesia: Height & Weight Height 6 ft 8 in 03/16/25 13:04 Weight: 106.141 kg 03/16/25 13:04 Body Mass Index (BMI) 25.7 03/16/25 13:04 Respiratory Assessment Respiratory Assessment - 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: Respiratory Tract Infection Hx - 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 Hx Respiratory Tract Infection No 03/16/25 13:51 STOP Sleep Apnea STOP Sleep Apnea - 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: STOP Sleep Apnea - 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 Hx Hypertension No 03/16/25 13:53 Hx Sleep [...] Tobacco Use History Tobacco Use History - 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: Tobacco Use History - 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 Tobacco Use Smoking Status Never smoker 03/16/25 13:04 Hx Tobacco Use No 03/16/25 13:04 Years Smoking Packs Smoked per Day Smoking Cessation Date was within the last 15 years Hx Smoking Cessation Date Hx Smoking Cessation Counseling Hematologic Medial History Hematologic Hx - 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: Hematologic Medical Hx - scrapper Hx of Blood Transfusion No 03/16/25 13:04 [...] confused, unrespo /Reproduction History /Reproductive History - 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: /Reproductive Hx- 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 Hx Now No 03/16/25 13:51 Gestational Age [...] mls @ 15 mls/hr 03/16/25 13:09 IV .[id number] PRN Saline Flush Sodium Chloride 250 mls @ 15 mls/hr 03/16/25 13:09 IV .[id number] PRN Additional IVPB Infusion Piperacillin Sod/Tazobactam 50 mls @ 12.5 mls/hr 03/16/25 13:30 03/16/25 13:40 Sod 3.375 gm/ Sodium Chloride IV 12.5 mls/hr Q8 DIA Administration Sodium Chloride 1,000 mls @ 75 mls/hr 03/16/25 13:32 03/16/25 13:43 IV 03/17/25 16:11 75 mls/hr .[id number] DIA Administration Influenza Virus Vacc Trival Recomb [...] MD Cosigner Signature: Date CC: ~ Signed [facility]09-26-2025 History and physical note [facility] Medical Records Department [address] [place] [address] H&P Exam - Hospitalist 03/16/25 1334 MR#: [id number] Acct: [id number] Name: ALONDRA ARITA Rep #:[id number] : 1975 49 From: Jose Guadalupe White PCP: Care Physician,No Primary Status :ADM IN Location: [place] [address]64195-1 HPI - General General Date of Admission: [...] dilatation, liver lesion, described in assessment plan. [facility] Medical History GERD (gastroesophageal reflux disease) Medical [...] (Auto) 75.9 H, Lymph % (Auto) 17.5 L,[place] % (Auto) 4.8, Eos % (Auto) 1.0, [...] Sl. Cloudy, Urine pH 6.0, Ur Specific [place] 1.010, Urine Protein Negative, Urine Glucose (UA) [...] without an obstructing lesion seen. Reading Location: [id number] Assessment & Plan Assessment/Plan (1) Cholelithiasis with [...] shock if needed Total time spent in bftl-kw-cqsd encounter in discussion of advanced directive 17 minutes. Laboratory Results 03/16/25 09:54: WBC 9.0, RBC 5.93, Hgb 17.0 H, Hct 48.0, MCV 80.9, MCH 28.7, MCHC 35.4, RDW Std Deviation 37.0, RDW Coeff of Ghulam 12.7, Plt Count 237, MPV 10.6, Immature Gran % (Auto) 0.400, Neut % (Auto) 75.9 H, Lymph % (Auto) 17.5 L,[place] % (Auto) 4.8, Eos % (Auto) 1.0, [...] Sl. Cloudy, Urine pH 6.0, Ur Specific [place] 1.010, Urine Protein Negative, Urine Glucose (UA) [...] to confirm stability possibly helpful. Reading Location: [id number] Charges/Coding Visit Charges Inpatient E&M: 28046 Init Hosp L3 Procedures Hospitalists Procedures: 26574 Advncd Care Plan 30 Min 03/16/25 1414 Cosigner Signature (if applicable): CC: Dr. Jose Guadalupe Puckett MD; Dr. Abbie Philip MD; No Primary Care Physician;Yevgeniy Keara, DO~ Signed [facility]09-26-2025 Radiology Diagnostic study note [facility] Imaging Services [address] [place] [address] CT Abd/Pelvis W/WO Contrast MR#: [id number] Acct: [id number] Name: ALONDRA ARITA Rep #: [id number] : 1975 M 49 From: Rizwan Ortega MD PCP: Care Physician,No Primary Status: ADM IN Study:CT Abd/Pelvis W/WO Contrast Date of Exa m: 03/16/25 Exam# [id number] Ordering Dr: Gillian Puckett MD PROCEDURE: CT [...] to confirm stability possibly helpful. Reading Location: [id number] CC: Dr. Jose Guadalupe Puckett MD; No Primary Care Physician ~ Artist Manager: Signed [facility]09-26-2025 Radiology Diagnostic study note [facility] Imaging Services [address] [place], [place] [address] Gallbladder MR#: [id number] Acct: [id number] Name: ALONDRA ARITA Rep #: [id number] : 1975 M 49 From: Pippa Early MD PCP: Care Physician,No Primary Status: REG ER Study:Gallbladder Date of Exam: 03/16/25 Exam# [id number] Ordering Dr: Amelia Bear DO PROCEDURE: GALLBLADDER [...] without an obstructing lesion seen. Reading Location: [facility] CC: Dr. 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 History - 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: Anesthesia History - 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 Hx Hospitalization Any Problems With Anesthesia No [...] take am of surgery PONV PONV - 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: PONV - 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 Female HX of Motion Sickness HX of N/V After Surgery Non-Smoker Duration of Surgery greater than 60 minutes Number of Risk Factors PONV Score Height & Weight Height & Weight: Anesthesia: Height & Weight Height 6 ft 8 in 03/16/25 13:04 Weight: 106.141 kg 03/16/25 13:04 Body Mass Index (BMI) 25.7 03/16/25 13:04 Respiratory Assessment Respiratory Assessment - 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: Respiratory Tract Infection Hx - 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 Hx Respiratory Tract Infection No 03/16/25 13:51 STOP Sleep Apnea STOP Sleep Apnea - 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: STOP Sleep Apnea - 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 Hx Hypertension No 03/16/25 13:53 Hx Sleep [...] Tobacco Use History Tobacco Use History - 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: Tobacco Use History - 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 Tobacco Use Smoking Status Never smoker 03/16/25 13:04 Hx Tobacco Use No 03/16/25 13:04 Years Smoking Packs Smoked per Day Smoking Cessation Date was within the last 15 years Hx Smoking Cessation Date Hx Smoking Cessation Counseling Hematologic Medial History Hematologic Hx - 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: Hematologic Medical Hx - scrapper Hx of Blood Transfusion No 03/16/25 13:04 [...] confused, unrespo /Reproduction History /Reproductive History - 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: /Reproductive Hx- 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 Hx Now No 03/16/25 13:51 Gestational Age [...] mls @ 15 mls/hr 03/16/25 13:09 IV .[id number] PRN Saline Flush Sodium Chloride 250 mls @ 15 mls/hr 03/16/25 13:09 IV .[id number] PRN Additional IVPB Infusion Piperacillin Sod/Tazobactam 50 mls @ 12.5 mls/hr 03/16/25 13:30 03/16/25 13:40 Sod 3.375 gm/ Sodium Chloride IV 12.5 mls/hr Q8 DIA Administration Sodium Chloride 1,000 mls @ 75 mls/hr 03/16/25 13:32 03/16/25 13:43 IV 03/17/25 16:11 75 mls/hr .[id number] DIA Administration Influenza Virus Vacc Trival Recomb [...] MD Cosigner Signature: Date CC: ~ Signed [facility] Work Phone: Consult note Author Yevgeniy Friend [facility] Note Date/Time March 16, 2025 3:40pm [facility] Medical Records Department [address] [place] [address] Consultation - GI 03/16/25 1537 MR#: [id number] Acct: [id number] Name: ALONDRA ARITA Rep #:[id number] : 1975 49 From: Yevgeniy Sarah DO PCP: Care Physician,No Primary Status :ADM IN Location[place] [facility] FH109-6 HPI Consult Data Date of Consult: 03/16/25 [...] and chalupa) around 6 PM and then [id number] PM had a cold cut sandwich and [...] (Auto) 75.9 H, Lymph % (Auto) 17.5 L,[place] % (Auto) 4.8, Eos % (Auto) 1.0, [...] Sl. Cloudy, Urine pH 6.0, Ur Specific [place] 1.010, Urine Protein Negative, Urine Glucose (UA) [...] without an obstructing lesion seen. Reading Location: [id number] Abdomen/Pelvis CT 03/16/25 12:05 IMPRESSION: Fatty liver. Well-defined lesion right lobe of liver favor focal nodular hyperplasia. Follow-up MR of the abdomen with Eovist in 4-6 months to confirm stability possibly helpful. Reading Location: [id number] Assessment & Plan Assessment/Plan (1) Cholelithiasis with [...] Lipase 50. Charges/Coding Visit Charges Inpatient E&M: 38456 Init Hosp L3 03/16/25 1540 <Electronically signed by Yevgeniy Sarah DO> Cosigner Signature (if applicable): CC: No Primary Care Physician~ Signed [facility] Work Phone: Consult note Author Armando Gomez [facility] Note Date/Time March 18, 2025 12:45pm [facility] Medical Records Department [address] [place] [address] Anesthesia Postop Eval II 03/16/251654 MR#: [id number] Acct: [id number] Name: ALONDRA ARITA Rep #:[id number] : 1975 49 From: Armando White PCP: Care Physician,No Primary Status :ADM IN Y Race: C Location: [place] [address] Anesthesia Postop Eval I Sum Anesthesia Postop [...] Armando Galaviz Signature: Date CC: ~ Signed [facility] Work Phone: Discharge summary Author Lucretia Bear [facility] Note Date/Time March 17, 2025 3:21pm [facility] Medical Records Department [address] [place] [address] Emergency Department Summary 03/16/25 MR#: [id number] Acct: [id number] Name: ALONDRA ARITA Rep #:[id number] : 1975 49 From: Lucretia Albert PCP: Care Physician,No Primary Status :ADM IN Location: [facility] QL131-0 HPI HPI - GI History of Present [...] other complaints or concerns at this time [facility] Medical History GERD (gastroesophageal reflux disease) Medical [...] 75.9 H Lymph % (Auto) 17.5 L [place] % (Auto) 4.8 Eos % (Auto) 1.0 [...] Sl. Cloudy Urine pH 6.0 Ur Specific [place] 1.010 Urine Protein Negative Urine Glucose (UA) [...] without an obstructing lesion seen. Reading Location: [id number] Abdomen/Pelvis CT 03/16/25 12:05 IMPRESSION: Fatty liver. Well-defined lesion right lobe of liver favor focal nodular hyperplasia. Follow-up MR of the abdomen with Eovist in 4-6 months to confirm stability possibly helpful. Reading Location: [id number] Rhythm Strip Rhythm Strip: Sinus Rhythm Rate: 76 Ectopy: None EKG Initial EKG: Attestation: I personally reviewed and interpreted this EKG as follows: Interpretation: Sinus Rhythm Comments: Normal sinus rhythm rate of 76 bpm with sinus arrhythmia Normal axis Normal intervals Normal ST segments Management Discussion w/another healthcare provider: Hospitalist and Hand Button Splitter Discharge Plan Dx/Rx/DC Orders Clinical Impression: Cholelithiasis with acute on chronic cholecystitis Disposition Disposition: Acute Care Hospital [facility] Discharge Date/Time: 03/16/25 12:44 What to do if you have Problems For any increased pain, shortness of breath, bleeding, nausea or vomiting, chestpain, or any unexpected problems, contact your Primary Care Provider. Call [employer] [facility] ([phone]) or report to the closest Emergency Room. Call 911 if necessary. 03/17/25 1521 <Electronically signed by Lucretia Bear DO> Cosigner Signature (if applicable): CC: No Primary Care Physician ~ Signed [facility] Work Phone: Discharge summary Author Jose Guadalupe Puckett [facility] Note Date/Time March 18, 2025 9:40am [facility] Medical Records Department [address] [place] [address] Instructions for Home/Discharge Instructions 03/18/25 0935 MR#: [id number] Acct: [id number] Name: ALONDRA ARITA Rep #:[id number] : 1975 49 From: Jose Guadalupe White [...] Alex Instructions Additional Instructions / Restrictions: Advised rfrh-omn-dbceytf Tylenol 500 mg to 1000 mg Q6 hourly as needed for fevermore than 102 Fahrenheit and moderate to severe pain respectively. Klfh-qcf-vnonrjm, probiotic, lactobacillus/acidophilus 1 tablet twice daily for [...] Care Physician; Yevgeniy Friend, DO ~ Signed [facility] Work Phone: Discharge summary Author Jose Guadalupe Puckett [facility] Note Date/Time March 18, 2025 9:46am [facility] Medical Records Department [address] [place] [address] Discharge Summary 03/18/25939 MR#: [id number] Acct: [id number] Name: ALONDRA ARITA Rep #:[id number] : 1975 49 From: Jose Guadalupe White PCP: Care Physician,No Primary Status :ADM IN Location: [place] [address] Providers Date of Admission: 03/16/25 Date of Discharge: 03/18/25 Primary Care Physician: No Primary Care Phys Consultations 03/16/25 13:32 Consult: Gastroenterology Routine Consulting Provider: [facility] Reason for Consult: choledocholithiasis EMERGENT Consult: [...] shock if needed Total time spent in psez-gx-enkz encounter in discussion of advanced directive 17 [...] (Auto) 75.9 H, Lymph % (Auto) 17.5 L,[place] % (Auto) 4.8, Eos % (Auto) 1.0, [...] Sl. Cloudy, Urine pH 6.0, Ur Specific [place] 1.010, Urine Protein Negative, Urine Glucose (UA) [...] (Auto) 83.5 H, Lymph % (Auto) 12.9 L,[place] % (Auto) 3.1, Eos % (Auto) 0.0, [...] to confirm stability possibly helpful. Reading Location: [facility] Medications at Discharge Home Medications amoxicillin [...] without an obstructing lesion seen. Reading Location: [facility] Abdomen/Pelvis CT 03/16/25 12:05 IMPRESSION: Fatty liver. Well-defined lesion right lobe of liver favor focal nodular hyperplasia. Follow-up MR of the abdomen with Eovist in 4-6 months to confirm stability possibly helpful. Reading Location: [facility] C-Arm Fluoroscopy 03/16/25 15:55 IMPRESSION: Intraoperative fluoroscopy status post ERCP, as above. Reading Location: [facility] ERCP X-Ray 03/16/25 15:55 IMPRESSION: Intraoperative fluoroscopy status post ERCP, as above. Reading Location: [facility] Physical Exam Narrative Seen and examined. Abdominal [...] Care Physician,No Primary Consulting Providers: Jose Guadalupe Pukcett; Yevgeniy Sarah; Karlee Green; Apolonia Pavon; Shira Alex Instructions Additional Instructions / Restrictions: Advised oacg-gtp-ifbohrw Tylenol 500 mg to 1000 mg Q6 hourly as needed for fevermore than 102 Fahrenheit and moderate to severe pain respectively. Flxt-oku-thczwit, probiotic, lactobacillus/acidophilus 1 tablet twice daily for [...] Self Care Charges/Coding Visit Charges Inpatient E&M: 23782 Disch Hosp >30min 03/18/25 0946 <Electronically signed by Jose Guadalupe Puckett MD> Cosigner Signature (if applicable): CC: Dr. Jose Guadalupe Puckett MD; Dr. Abbie Philip MD; No Primary Care Physician;Yevgeniy Sarah DO~ Signed [facility] Work Phone: Evaluation note* Diagnosis Onset Date Resolution Status Admit Date Cholelithiasis with acute on chronic cholecystitis acute March 16, 2025 12:53pm [facility] Work Phone: History and physical note Author Jose Guadalupe Puckett [facility] Note Date/Time March 16, 2025 2:14pm [facility] Medical Records Department [address] [place] [address] [place] [address] H&P Exam - Hospitalist 03/16/25 1334 MR#: [id number] Acct: [id number] Name: ALONDRA ARITA Rep #:[id number] : 1975 49 From: Jose Guadalupe White PCP: Care Physician,No Primary Status :ADM IN Location: [facility] SL148-0 HPI - General General Date of Admission: [...] dilatation, liver lesion, described in assessment plan. [facility] Medical History GERD (gastroesophageal reflux disease) Medical [...] (Auto) 75.9 H, Lymph % (Auto) 17.5 L,[place] % (Auto) 4.8, Eos % (Auto) 1.0, [...] Sl. Cloudy, Urine pH 6.0, Ur Specific [place] 1.010, Urine Protein Negative, Urine Glucose (UA) [...] without an obstructing lesion seen. Reading Location: [facility] Assessment & Plan Assessment/Plan (1) Cholelithiasis with acute on chronic cholecystitis: PLAN: Plan 49-year-old gentleman came to ED with right upper and epigastric abdominal pain since 1:30 AM today with nausea. 1. Acute on chronic GB colic with cholelithiasis with suspicion of choledocholithiasis: Patient is being admitted to [facility] floor. RUQ sonogram shows cholelithiasis without signs [...] shock if needed Total time spent in jrwd-hd-jcxo encounter in discussion of advanced directive 17 minutes. Laboratory Results 03/16/25 09:54: WBC 9.0, RBC 5.93, Hgb 17.0 H, Hct 48.0, MCV 80.9, MCH 28.7, MCHC 35.4, RDW Std Deviation 37.0, RDW Coeff of Ghulam 12.7, Plt Count 237, MPV 10.6, Immature Gran % (Auto) 0.400, Neut % (Auto) 75.9 H, Lymph % (Auto) 17.5 L,[place] % (Auto) 4.8, Eos % (Auto) 1.0, [...] Sl. Cloudy, Urine pH 6.0, Ur Specific [place] 1.010, Urine Protein Negative, Urine Glucose (UA) [...] to confirm stability possibly helpful. Reading Location: [facility] Charges/Coding Visit Charges Inpatient E&M: 69763 Init Hosp L3 Procedures Hospitalists Procedures: 17230 Advncd Care Plan 30 Min 03/16/25 1414 <Electronically signed by Jose Guadalupe Puckett MD> Cosigner Signature (if applicable): CC: Dr. Jose Guadalupe Puckett MD; Dr. Abbie Philip MD; No Primary Care Physician;Yevgeniy Friend, DO~ Signed [facility] Work Phone: Hospital Discharge instructionsAdditional Instructions Advised ybgc-aby-epmnrww Tylenol 500 mg to 1000 mg Q6 hourly as needed for fever more than 102 Fahrenheit and moderate to severe pain respectively. Kirb-wrq-lvcjnsw, probiotic, lactobacillus/acidophilus 1 tablet twice daily for 7 days. [facility]: [facility] Work Phone: Progress note Author Jose Guadalupe Puckett [facility] Note Date/Time March 17, 2025 1:02pm [facility] Medical Records Department [address] [place] [address] Progress Note - Hospitalist 03/17/25 0754 MR#: [id number] Acct: [id number] Name: ALONDRA ARITA Rep #:[id number] : 1975 49 From: Jose Guadalupe White PCP: Care Physician,No Primary Status :ADM IN Location: [facility] ME725-7 Reason for Visit Chief Complaint: Right upper [...] (Auto) 75.9 H, Lymph % (Auto) 17.5 L,[place] % (Auto) 4.8, Eos % (Auto) 1.0, [...] Sl. Cloudy, Urine pH 6.0, Ur Specific [place] 1.010, Urine Protein Negative, Urine Glucose (UA) [...] (Auto) 83.5 H, Lymph % (Auto) 12.9 L,[place] % (Auto) 3.1, Eos % (Auto) 0.0, [...] without an obstructing lesion seen. Reading Location: [id number]-HC Abdomen/Pelvis CT 03/16/25 12:05 IMPRESSION: Fatty liver. Well-defined lesion right lobe of liver favor focal nodular hyperplasia. Follow-up MR of the abdomen with Eovist in 4-6 months to confirm stability possibly helpful. Reading Location: [id number] C-Arm Fluoroscopy 03/16/25 15:55 IMPRESSION: Intraoperative fluoroscopy status post ERCP, as above. Reading Location: [id number] ERCP X-Ray 03/16/25 15:55 IMPRESSION: Intraoperative fluoroscopy status post ERCP, as above. Reading Location: [facility] Rhythm Strip Rhythm Strip: Sinus Rhythm Rate: [...] of choledocholithiasis: [facility]Q sonogram shows cholelithiasis without [...] shock if needed Total time spent in [id number] encounter in discussion of advanced directive 17 minutes. Laboratory Results 03/16/25 09:54: WBC 9.0, RBC 5.93, Hgb 17.0 H, Hct 48.0, MCV 80.9, MCH 28.7, MCHC 35.4, RDW Std Deviation 37.0, RDW Coeff of Ghulam 12.7, Plt Count 237, MPV 10.6, Immature Gran % (Auto) 0.400, Neut % (Auto) 75.9 H, Lymph % (Auto) 17.5 L,[place] % (Auto) 4.8, Eos % (Auto) 1.0, [...] Sl. Cloudy, Urine pH 6.0, Ur Specific [place] 1.010, Urine Protein Negative, Urine Glucose (UA) [...] (Auto) 83.5 H, Lymph % (Auto) 12.9 L,[place] % (Auto) 3.1, Eos % (Auto) 0.0, [...] to confirm stability possibly helpful. Reading Location: [id number] Charges/Coding Visit Charges Inpatient E&M: 35264 Subs Hosp L2 03/17/25 1302 <Electronically signed by Jose Guadalupe Puckett MD> Cosigner Signature (if applicable): CC: ~ Signed [facility] Work Phone: Reason for referral (narrative)No reason for referral information availableWSumma Health Work Phone: Chief Complaint and Reason for [...] Do you have a Healthcare Power of Tankage Supervisor? No March 16, 2025 1:04pm Summary Purpose [...] Active Start: March 16, 2025 Dr. Yevgeniy Sraah DO Attending physician Active Start: March 16, [...] section and content) DATE CREATED AUTHOR 04/05/2025 [facility] FOR RECORDS PERTAINING TO PATIENTS WHO ARE [...] BE BASED ON THE PRIMARY CLINICAL RECORDS. [facility]. provides no warranty or guarantee of the accuracy or completeness of information in this document.
[2025-04-07] MEDS: Lactated Ringers 1,000 ML 120 ML IV (18:22)
--- NOTE | 2025-04-07 22:56 | NURSING ---
2000: pt requesting pain medication for abdominal discomfort rated 8/10. pt reports he is nauseated and does not think he will do well with oxycodone. medicated with toradol iv.
--- NOTE | 2025-04-07 22:57 | NURSING ---
pt reports toradol was effective and rated abd pain 2/10. assist x 1 to ambulate to the bathroom. pt voided 500 cc kristal urine and then walked down the nursing mead to room 304 and returned to his room. denied c/o dizziness. steady gait noted. vss at this time. back to bed with call light in reach.
[2025-04-08 01:41] VITALS: BP 130/79; PULSE 79; RESP 15; TEMP 36.9; O2SAT 95
[2025-04-08] MEDS: Lactated Ringers 1,000 ML 120 ML IV ×2 (02:42→17:44)
[2025-04-08] MEDS: Pantoprazole Sodium 40 MG in 0.9% Normal Saline (100mL MB+) 100 ML 300 MG IV ×2 (06:55→22:10)
[2025-04-08 07:30] VITALS: O2SAT 97
[2025-04-08 08:46] VITALS: BP 116/92; PULSE 93; RESP 16; TEMP 37.2; O2SAT 92
--- NOTE | 2025-04-08 10:05 | PCM.PN.SRG ---
Subjective Subjective Patient did report throwing up when he got to the floor and had some reflux better with medication, patient has tolerated some clears denies flatus Objective Data Objective Data Vital Signs: Vital Signs Temp Pulse Resp BP Pulse Ox O2 Del Method 98.9 F 93 16 116/92 H 92 Room Air 04/08/25 08:46 04/08/25 08:46 04/08/25 08:46 04/08/25 08:46 04/08/25 08:46 04/08/25 08:46 Oxygen Delivery Method Room Air Weight: 222 lb 15.996 oz Body Mass Index (BMI) 33.9 Intake & Output: Intake and Output for Last 24 Hours 04/06/25 04/07/25 04/08/25 23:59 23:59 23:59 Intake Total 1100 / 1100 1820 / 1820 Output Total 700 / 700 Balance 400 / 400 1820 / 1820 Lab / Micro Data 04/07/25 14:15 04/07/25 14:15 Labs: Laboratory Results - last 24 hr 04/07/25 14:15: WBC 12.5 H, RBC 5.86, Hgb 16.3, Hct 47.1, MCV 80.4, MCH 27.8, MCHC 34.6, RDW Std Deviation 37.2, RDW Coeff of Ghulam 12.9, Plt Count 346, MPV 10.3, Immature Gran % (Auto) 0.500, Neut % (Auto) 79.5 H, Lymph % (Auto) 13.7 L, [place] % (Auto) 5.4, Eos % (Auto) 0.6, Baso % (Auto) 0.3, Absolute Neuts (auto) 10.0 H, Absolute Lymphs (auto) 1.71, Nucleated RBC % 0, Sodium 137, Potassium 3.6, Chloride 100, Carbon Dioxide 22.5, Anion Gap 15, BUN 16, Creatinine 0.93, Estim Creat Clear Calc 107.69, Est GFR (MDRD) Non-Af 101, BUN/Creatinine Ratio 17.4, Glucose 119 H, Calcium 9.9, Total Bilirubin 0.75, AST 18, ALT 26, Alkaline Phosphatase 52, Total Protein 7.6, Albumin 4.2, Globulin 3.4, Albumin/Globulin Ratio 1.2, Lipase 36 Radiography Diagnostic Testing: Radiology Impression Abdomen/Pelvis CT 04/07/25 14:09 IMPRESSION: 1. Proximal small bowel obstruction with transition point at the location of a small supraumbilical ventral abdominal wall hernia, with focally herniated short-segment of jejunal small bowel. 2. 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 This can be confirmed with a dedicated MRI with Eovist. 3. Prior cholecystectomy with biliary ductal stent in place. Postoperative pneumobilia. Reading Location: [facility] Physical Exam Const oriented x3 and no apparent distress Resp normal respiratory effort Cardio regular rate GI GI Narrative: Appropriately tender near incision, dressed with pressure dressing, abdominal binder in place Assessment & Plan Assessment/Plan (1) History of incisional hernia repair: (2) S/P laparoscopic cholecystectomy: PLAN: Plan Patient tolerating clears await flatus to advance diet. Possible DC home today versus tomorrow depending on bowel function Abbie Philip M.D. Pager: [phone] [facility] [address] [place] [address], [facility], [address] [place] [address] Office: [phone]
[2025-04-08] MEDS: 0.9% Saline Lock 10 ML Syringe IV (14:39)
[2025-04-08 14:46] VITALS: BP 120/81; PULSE 88; RESP 16; TEMP 37.2; O2SAT 95
--- NOTE | 2025-04-08 16:40 | RAD_ITS ---
PROCEDURE: ABDOMEN SINGLE VIEW 04/08/2025 REASON FOR EXAM: NAUSEA POST OP TECHNIQUE: Procedure Code: RAD ABD Modality: DX Procedure: ABDOMEN SINGLE VIEW COMPARISON: Ercp 03/16/[address] SAME date FINDINGS: Bowel gas: 4 or 5 distended differential air-fluid levels are seen in the upper half of the left lower quadrant of the abdomen. Findings suggest postoperative ileus versus obstruction. Please correlate clinically. Biliary stent in place. Calcifications: No abnormal large calcifications appreciated. Bones: Unremarkable Other: Significant findings RAD/Abdomen Single View IMPRESSION: Obstructed bowel-gas pattern. Correlate clinically to rule out ileus Reading Location[facility]
--- NOTE | 2025-04-08 16:44 | CT_ITS ---
PROCEDURE: ABDOMEN/ PELVIS WITHOUT CONT 04/08/2025 REASON FOR EXAM: POST OP TECHNIQUE: Procedure Code: CT ABD PEL Modality: CT Procedure: ABDOMEN/PELVIS WITHOUT CONT Noncontrast technique limits evaluation of the abdominal and pelvic viscera. Coronal and Sagittal reconstruction series were provided. One or more dose reduction techniques were used (e.g., Automated exposure control, adjustment of the mA and/or kV according to patient size, use of iterative reconstruction technique). RADIATION DOSE SUMMARY: CTDlvol: 21.87 mGy DLP: 1325 0.06 mGycm COMPARISON: CT of April 07, 2020, yesterday FINDINGS: Lung bases: Calcified nodule right middle lobe Liver: Biliary stent in place. Intrahepatic biliary air in the left lobe. Gallbladder: Not identified Spleen: Unremarkable Pancreas: Unremarkable Adrenals: Normal Kidneys: Unremarkable Bladder: Unremarkable Reproductive Organs: Unremarkable Bowel: Fluid and air dilated small bowel with transition point in the distal 3rd of the ileum suggest mechanical obstruction or obstruction from other etiology with a transition to normal caliber small bowel in the distal 3rd of the ileum Appendix: Normal appendix identified. Lymph nodes: Grossly no aortocaval, pelvic or inguinal adenopathy Vasculature: Unremarkable Peritoneum / Retroperitoneum: No free air and no free fluid Bones: No lytic or blastic bone abnormalities. CT/Abdomen/Pelvis without Cont IMPRESSION: Small-bowel obstruction is of concern. Correlate clinically Reading [facility]
--- NOTE | 2025-04-08 17:15 | RAD_ITS ---
PROCEDURE: ABDOMEN SINGLE VIEW (PORTABLE) 04/08/2025 REASON FOR EXAM: FOR NG PLACEMENT TECHNIQUE: Procedure Code: RADABD_P Modality: DX Procedure: ABDOMEN SINGLE VIEW (PORTABLE) COMPARISON: Earlier same day 04/08/2025 FINDINGS: Enteric tube extends below the diaphragm, coiled in the left upper abdomen, side port/distal tip terminating in the expected location of the stomach/proximal duodenum. Biliary ductal stent in place. Unchanged appearance of dilated air-filled small bowel segments in the upper midabdomen. No discernible free air. No unusual calcific densities appreciated. Mild left basilar discoid atelectasis. RAD/Abdomen Single View (Portable) IMPRESSION: 1. Enteric tube terminates within the distal stomach/proximal duodenum. 2. Unchanged dilated air-filled small bowel loops in the upper midabdomen. Reading Location: [id number]
[2025-04-08 20:00] VITALS: BP 135/82; PULSE 80; RESP 15; TEMP 36.8; O2SAT 95
[2025-04-08 23:00] VITALS: RESP 15; O2SAT 96
[2025-04-09] VITALS (13 sets, daily range): BP systolic 116–140; BP diastolic 73–87; PULSE 80–96; RESP 15–18; TEMP 36.8–37.9; O2SAT 92–98
[2025-04-09] MEDS: Lactated Ringers 1,000 ML 120 ML IV ×3 (02:53→21:55)
[2025-04-09 06:40] LABS: Hematocrit 41.3 % (40-54); Hemoglobin 14.2 g/dL (13.0-16.5); Immature Granulocytes Count 0.010 X10^3/uL (0.0-0.0); Mean Corp Hgb Conc 34.4 g/dL (32-36); Mean Corpuscular Volume 82.8 fL (80-94); Mean Platelet Vol. 10.1 fl (6.2-12.0); NRBC Flagged by Analyzer 0 % (0-5); Platelet Count 267 K/mm3 (150-450); RBC Distribution Width CV 12.9 % (11.6-14.6); RBC Distribution Width SD 38.8 fl (35.1-43.9); Red Blood Count 4.99 M/mm3 (4.6-6.2); White Blood Count 6.5 K/mm3 (4.4-11.0)
[2025-04-09 07:20] LABS: Anion Gap 14 (5-15); BUN 18 mg/dL (4-19); BUN/Creat Ratio 18.9 RATIO (10-20); Calcium,Total 9.1 mg/dL (7.6-11.0); Carbon Dioxide 22.8 mmol/L (21.0-32.0); Chloride 101 mmol/L (98-108); Estimated Creatinine Clearance 108.38 ml/min (50-250); Glucose 89 mg/dL (70-99); Magnesium 1.8 mg/dL (1.5-2.2); Potassium 3.4 mmol/L (3.3-5.1)
--- NOTE | 2025-04-09 08:04 | PCM.PN.SRG ---
Subjective Subjective Patient evaluated resting comfortably in bed. He notes his main complaint is the NG tube. He notes overall feeling improved. He has passed a small amount of flatus. Negtaive BM. Objective Data Objective Data Vital Signs: Vital Signs Temp Pulse Resp BP Pulse Ox O2 Del Method 98.3 F 80 15 138/87 H 94 Room Air 04/09/25 02:00 04/09/25 02:00 04/09/25 05:00 04/09/25 02:00 04/09/25 02:00 04/09/25 05:00 Oxygen Delivery Method Room Air Weight: 222 lb 15.996 oz Body Mass Index (BMI) 33.9 Intake & Output: Intake and Output for Last 24 Hours 04/07/25 04/08/25 04/09/25 23:59 23:59 23:59 Intake Total 1100 / 1100 2260 / 2260 1060 / 1060 Output Total 700 / 700 1800 / 1800 500 / 500 Balance 400 / 400 460 / 460 560 / 560 Lab / Micro Data 04/09/25 06:25 04/09/25 06:25 Labs: Laboratory Results - last 24 hr 04/09/25 06:25: WBC 6.5, RBC 4.99, Hgb 14.2, Hct 41.3, MCV 82.8, MCH 28.5, MCHC 34.4, RDW Std Deviation 38.8, RDW Coeff of Ghulam 12.9, Plt Count 267, MPV 10.1, Immature Gran % (Auto) 0.200, Neut % (Auto) 61.8, Lymph % (Auto) 23.5, [place] % (Auto) 10.5 H, Eos % (Auto) 3.7, Baso % (Auto) 0.3, Absolute Neuts (auto) 4.0, Absolute Lymphs (auto) 1.53, Nucleated RBC % 0, Sodium 137, Potassium 3.4, Chloride 101, Carbon Dioxide 22.8, Anion Gap 14, BUN 18, Creatinine 0.94, Estim Creat Clear Calc 108.38, Est GFR (MDRD) Non-Af 98, BUN/Creatinine Ratio 18.9, Glucose 89, Calcium 9.1, Magnesium 1.8 Radiography Diagnostic Testing: Radiology Impression KUB X-Ray 04/08/25 16:40 IMPRESSION: Obstructed bowel-gas pattern. Correlate clinically to rule out ileus Reading Location: [facility] Abdomen/Pelvis CT 04/08/25 16:44 IMPRESSION: Small-bowel obstruction is of concern. Correlate clinically Reading Location: [facility] KUB X-Ray 04/08/25 17:15 IMPRESSION: 1. Enteric tube terminates within the distal stomach/proximal duodenum. 2. Unchanged dilated air-filled small bowel loops in the upper midabdomen. Reading Location: [facility] Physical Exam HEENT HEENT Narrative: NG tube intact GI GI Narrative: Abdomen- soft, slightly distended. Assessment & Plan Assessment/Plan (1) History of incisional hernia repair: (2) Intractable vomiting: (3) SBO (small bowel obstruction): PLAN: Plan I am following this patient in conjunction with Dr. Philip. She has independently evaluated this patient Labs reviewed Plan for small bowel follow-through with Gastrografin via NG tube Continue NG tube Continue to encourage ambulation We will continue to monitor this patient Charges/Coding Visit Charges Inpatient E&M: 00890 Subs Hosp L1 (Post-op; no charge)
--- NOTE | 2025-04-09 09:10 | RAD_ITS ---
PROCEDURE: SMALL BOWEL SERIES ONLY 04/09/2025 REASON FOR EXAM: SMALL BOWEL OBSTRUCTION Recent hernia repair. TECHNIQUE: SMALL BOWEL SERIES ONLY FLUOROSCOPIC TIME: None FLUOROGRAPHIC IMAGES: 5 COMPARISON: Prior study dated April 08, 2025. FINDINGS: A nasogastric tube is seen with the tip in the distal portion of the stomach. A biliary stent catheter is seen. There is evidence of dilated small bowel loops. Following this, the patient ingested Gastrografin. A small bowel follow-through examination was performed up to 1 hour as determined by the surgeon. There is evidence of small bowel dilatation. Contrast is seen in the proximal small bowel. RAD/Small Bowel Series Only IMPRESSION: Persistent small bowel dilatation. Incomplete study. Findings suggestive of s mall-bowel obstruction. Reading Location: [facility]
[2025-04-09] MEDS: Pantoprazole Sodium 40 MG in 0.9% Normal Saline (100mL MB+) 100 ML 300 MG IV ×2 (09:34→21:19)
[2025-04-09] MEDS: Lactated Ringers 1,000 ML 15 ML IV (11:15)
--- NOTE | 2025-04-09 11:22 | PCM.PRE.AN2 ---
ASA Classification* ASA Classification ASA Classification: 2 and E Assessment & Plan Anesthesia* Anesthesia Assessment Anesthesia Assessment: Discussed sedation and/or anesthesia options, risks, benefits, and alternatives with patient/parents/legal guardian/POA. Questions invited. The patient/parents/legal guardian/POA seems to understand and agrees to proceed with anesthesia plan. Reviewed the physical assessment, medical history, allergy history and patient home medications list prior to surgery/procedure/anesthetic and documented any changes. Performed airway and anesthesia risk assessments. Anesthesia Type Anesthesia Type: General Anesthesia Focused Assessment* Temperature: 98.8 F Pulse Rate: 88 Blood Pressure: 116/81 Respiratory Rate: 16 Pulse Ox: 94 Airway Assessment Mouth opens: >3 cm Mallampati Score: II Labs Anesthesia Preop lab: CBC WBC, (4.4-11.0) 6.5 K/mm3 Today, 06:25 RBC, (4.6-6.2) 4.99 M/mm3 Today, 06:25 Hgb, (13.0-16.5) 14.2 g/dL Today, 06:25 Hct, (40-54) 41.3 % Today, 06:25 Plt Count, (150-450) 267 K/mm3 Today, 06:25 CHEMISTRY Potassium, (3.3-5.1) 3.4 mmol/L Today, 06:25 Sodium, (133-145) 137 mmol/L Today, 06:25 Magnesium, (1.5-2.2) 1.8 mg/dL Today, 06:25 BUN, (4-19) 18 mg/dL Today, 06:25 Creatinine, (0.70-1.20) 0.94 mg/dL Today, 06:25 Glucose, (70-99) 89 mg/dL Today, 06:25 COAG PT, (11.7-14.9) 13.3 SECONDS 03/16/25, 09:54 Pre-Assessment Diagnosis/Proposed Procedure Planned Operative Procedure(s): Exploratory laparoscopy for SBO Anesthesia History 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 When Was Last Pacemaker Check QUESTION #4 FULL TEXT: You/Your Family Experience fever (hyperthermia) with Anesthesia Last Oral Intake Last Oral intake: Last Oral Intake NPO since Meds taken in AM with sips of water? Meds patient instructed to take am of surgery PONV PONV - power plant electrician: PONV - power plant electrician Female HX of Motion Sickness HX of N/V After Surgery Non-Smoker Duration of Surgery greater than 60 minutes Number of Risk Factors PONV Score Height & Weight Height & Weight: Anesthesia: Height & Weight Height 5 ft 8 in 04/07/25 17:56 Weight: 101.151 kg 04/07/25 17:56 Body Mass Index (BMI) 33.9 04/07/25 17:56 Respiratory Assessment Respiratory Assessment - power plant electrician: Respiratory Tract Infection Hx - power plant electrician Hx Respiratory Tract Infection No 03/29/25 09:18 STOP Sleep Apnea STOP Sleep Apnea - power plant electrician: STOP Sleep Apnea - power plant electrician Hx Hypertension No 04/07/25 17:56 Hx Sleep Apnea No 04/07/25 17:56 CPAP BIPAP Do you snore loudly (louder Yes 04/07/25 17:56 than talking or can be heard Do you often feel tired/ No 04/07/25 17:56 fatigued/ sleepy during daytime? Has anyone observed you stop No 04/07/25 17:56 breathing during sleep? STOP Results Negative 04/07/25 17:56 QUESTION #5 FULL TEXT : Do you snore loudly (louder than talking or can be heard through closed doors)? Tobacco Use History Tobacco Use History - power plant electrician: Tobacco Use History - power plant electrician Tobacco Use Smoking Status Never smoker 04/07/25 17:56 Hx Tobacco Use No 04/07/25 17:56 Years Smoking Packs Smoked per Day Smoking Cessation Date was within the last 15 years Hx Smoking Cessation Date Hx Smoking Cessation Counseling Hematologic Medial History Hematologic Hx - power plant electrician: Hematologic Medical Hx - fermenting cellar dropper Hx of Blood Transfusion Hx of Transfusion in last 3 Months Date of Last Transfusion (if within last 3 months) Ever experience any problems with transfusion(s)? Specify any problems Hx of Preganancy in last 3 Months Nurse Filling Out Transfusion & Questions: Date: Time: Patient unable to answer at Yes 04/07/25 17:56 this time (ie. confused, unrespo /Reproduction History /Reproductive History - power plant electrician: /Reproductive Hx- power plant electrician Hx Now Gestational Age (in weeks): EDC: Hx Hx Para Hx Section SAB No 03/29/25 09:18 Active Medications Active Medications: Current Medications Generic Name Dose Route Start Last Admin Trade Name Freq PRN Reason Stop Dose Admin Lactated Ringer's 1,000 mls @ 120 mls/hr 04/07/25 17:55 04/09/25 11:12 IV 0 mls/hr .Q8H20M DIA Infusion Pantoprazole Sodium 40 mg/ 100 mls @ 300 mls/hr 04/08/25 22:00 04/09/25 10:14 Sodium Chloride IV Infused Q12 DIA Infusion Lactated Ringer's 1,000 mls @ 15 mls/hr 04/09/25 11:15 IV .Q48H DIA Ketorolac Tromethamine 15 mg 04/07/25 17:55 04/08/25 20:39 Ketorolac 15 Mg/Ml Vial IV 15 mg Q6H PRN PRN Administration Pain Score 1-10 Morphine Sulfate 2 - 4 mg 04/07/25 17:55 04/08/25 01:52 Morphine 2 Mg/Ml Syringe IV 2 mg Q2H PRN PRN Administration Pain Score 4-10 Morphine Sulfate 2 - 4 mg 04/07/25 18:13 Morphine 4 Mg/Ml Syringe IV Q2H PRN PRN Pain Score 4-10 Ondansetron HCl 4 mg 04/07/25 17:55 04/08/25 01:49 Ondansetron 4 Mg/2 Ml Vial IV 4 mg Q8H PRN PRN Administration NAUSEA/VOMITING Oxycodone HCl 5 - 10 mg 04/07/25 17:55 Oxycodone 5 Mg Tablet PO Q4H PRN PRN Pain Score 4-10 Phenol/Menthol 5 spray 04/08/25 17:44 Phenol/Sodium Phenolate 180ml MUCOUS MEM Q2H PRN PRN SORE THROAT Sodium Chloride 10 - 40 ml 04/07/25 18:14 04/08/25 14:39 0.9% Saline Lock 10 Ml Syringe IV 10 ml UD PRN Administration SALINE FLUSH Throat Lozenges 1 lozenge 04/08/25 16:55 Benzocaine/Menthol 1 Lozenge MUCOUS MEM Q2H PRN PRN SORE THROAT PFSH Medical History Wears glasses Fatty liver Heartburn Gastric reflux Non-smoker Nausea Abdominal pain GERD (gastroesophageal reflux disease) Home Medications ?Medication ?Instructions ?Recorded ?Last Taken ?Type omeprazole 40 mg capsule,delayed 40 mg PO QDAY #30 caps 03/23/25 04/03/25 Rx release oxycodone 5 mg capsule 5 mg PO Q6H PRN pain 3 days #10 04/04/25 Unknown Rx caps Allergy/AdvReac Type Severity Reaction Status Date / Time No Known Allergies Allergy Verified 04/07/25 13:36 Surgical History History of incisional hernia repair S/P laparoscopic cholecystectomy History of wisdom tooth extraction (~06/21/94) Hx of LASIK History of ERCP (03/16/25) Social History Smoking Status: Never smoker alcohol intake: never substance use type: does not use Review of Systems (Anesthesia) ROS Narrative System reviewed and no additional complaints, except as documented.
[2025-04-09] MEDS: Lactated Ringers 1,000 ML 1000 ML IV (11:52)
[2025-04-09] MEDS: fentaNYL 100 MCG/2 ML Ampul IV (12:35)
[2025-04-09] MEDS: Lidocaine 1% (5 ml sdv) 5 ML Vial IV (12:36)
[2025-04-09] MEDS: Bupiv/Epi 0.25% 30 ML Vial INFILT (13:00)
--- NOTE | 2025-04-09 13:26 | PCM.OPRPT ---
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 machine operator: Yes Food Runner: Renay Leo Tasks completed by clerical administrative assistant: Opening & closing Type of Anesthesia: General/Supplemental RN Documented Start/Stop Times: Operation Date: 04/09/25 11:30 Case Time Into Pre-Op 04/09/25 11:15 Anesthesia Start 04/09/25 12:26 Into Room 04/09/25 12:26 Procedure Start 04/09/25 12:50 Procedure End 04/09/25 13:31 Anesthesia End 04/09/25 13:37 Out of Room 04/09/25 13:37 Into Recovery 04/09/25 13:43 Out of Recovery 04/09/25 14:11 Procedure Start Time: 12:50 Procedure Stop Time: 13:31 Select all DRAINS/GRAFTS/IMPLANTS that apply: None Special Medications: Cefotetan 2 g IV x 1 Estimated Blood Loss: < 10 cc Specimen collected: No Description of surgery: Indications: this is a 49 year-old male who had a postoperative ileus versus bowel obstruction status post incisional hernia repair with mesh status post robotic cholecystectomy. Description procedure: The patient was placed on operating table in supine position. A timeout was completed verifying correct patient, procedure, site, position and special equipment prior to beginning procedure. General Anesthesia was induced. The abdomen was prepped and draped in usual sterile fashion with Betadine at previous incisions for prep and the rest of the abdomen. An incision was made in the epigastrium. The fascia was elevated and incised. The peritoneum was elevated and incised. Entry into the peritoneum was confirmed visually and no bowel was noted in the vicinity of the incision. Reynolds trocar was placed. The abdomen was insufflated with carbon dioxide to a pressure of 12-15 mmHg. Patient tolerated insufflation well. The laparoscope was then inserted and abdomen inspected. No injuries from initial trocar placement were noted. Additional trochars were then inserted in the following locations 5 mm trocar in the left upper quadrant and left lower quadrant. Small bowel noted to be dilated. there was small bowel adherent to the mesh this was able to removed with gentle traction. There was also an adhesions between loops of small bowel creating a tight turn due to mesh was also able to be removed with gentle traction. The rest of the bowel was ran to the cecum no other sites of stricture or adhesions were seen. Unable to bring the omentum to cover the area of the mesh as it was up in the left upper quadrant and too heavy with all the dilated small bowel to be moved. Secondary trochars removed under direct vision. No bleeding was noted the trocar sites. The laparoscope was withdrawn and umbilical trocar removed. The abdomen was allowed to collapse. The fascia of the 12 mm trocar was closed with a [id number] 0 PDS suture. The skin was closed with sutures of 4-0 Monocryl and Steri-Strips. The patient was extubated. The patient tolerated procedure well and was taken to the postanesthesia care unit in stable condition. Surgical Findings: See op report Complications Complications: No
--- NOTE | 2025-04-09 13:54 | PCM.POST.ANE ---
Anesthesia: Postop Eval I Current Vital Signs Temperature: 99 F Pulse Rate: 87 Blood Pressure: 137/80 Respiratory Rate: 16 Pulse Ox: 98 Oxygen Delivery Method: Room Air Assessment Airway patent: Yes Spontaneous unlabored respirations: Yes Mental status: Awake and Calm nausea: No Vomiting: No Anesthesia Complication: No Fluid Hydration Crystalloid volume administer (ml): 1,000 Total IV fluid infused: 1,000 Progress Note Anesthesia document: Postop Eval 1 completed: Yes
[2025-04-09] MEDS: 0.9% Saline Lock 10 ML Syringe IV (14:32)
--- NOTE | 2025-04-09 14:43 | POSTOPAN2_ITS ---
Anesthesia Postop Eval I Sum Postop Eval Completion status Anesthesia document: Postop Eval 1 completed: Yes Anesthesia Postop Eval I Summary Anesthesia Postop Eval I Summary: Anesthesia Postop Eval I: Assessment Summary Airway patent Yes 04/09/25 13:55 ACCOUNTS [email or web address] Spontaneous unlabored Yes 04/09/25 13:55 ACCOUNTS [email or web address] respirations Mental status Awake,Calm 04/09/25 13:55 ACCOUNTS [email or web address] nausea No 04/09/25 13:55 ACCOUNTS [email or web address] Vomiting No 04/09/25 13:55 ACCOUNTS [email or web address] Anesthesia Postop Eval I: Fluid Summary Crystalloid volume administer 1,000 04/09/25 13:55 ACCOUNTS [email or web address].JDEF (ml) Colloids volume administered ( ml) Blood Product volume administered (ml) Total IV fluid infused 1,000 04/09/25 13:55 ACCOUNTS [email or web address] Anesthesia Postop Eval I: Summary Notes Anesthesia Complication No 04/09/25 13:55 ACCOUNTS [email or web address] Anesthesia Complication Comment: Post-operative progress note Anesthesia: Postop Eval II Evaluation Mental status: Awake Pain Level: 2 nausea: No Vomiting: No
--- NOTE | 2025-04-09 14:43 | PCM.POSTANE2 ---
Anesthesia Postop Eval I Sum Postop Eval Completion status Anesthesia document: Postop Eval 1 completed: Yes Anesthesia Postop Eval I Summary Anesthesia Postop Eval I Summary: Anesthesia Postop Eval I: Assessment Summary Airway patent Yes 04/09/25 13:55 [email or web address] Spontaneous unlabored Yes 04/09/25 13:55 SURGICAL [email or web address] respirations Mental status Awake,Calm 04/09/25 13:55 SURGICAL [email or web address] nausea No 04/09/25 13:55 SURGICAL ASSISTANT.JDEF Vomiting No 04/09/25 13:55 SURGICAL [email or web address] Anesthesia Postop Eval I: Fluid Summary Crystalloid volume administer 1,000 04/09/25 13:55 SURGICAL [email or web address] (ml) Colloids volume administered ( ml) Blood Product volume administered (ml) Total IV fluid infused 1,000 04/09/25 13:55 SURGICAL [email or web address] Anesthesia Postop Eval I: Summary Notes Anesthesia Complication No 04/09/25 13:55 [email or web address] Anesthesia Complication Comment: Post-operative progress note Anesthesia: Postop Eval II Evaluation Mental status: Awake Pain Level: 2 nausea: No Vomiting: No
--- NOTE | 2025-04-09 14:43 | ANES.CONFIRM ---
Anesthesia: Confirm Documents Multiple Procedures on Account (2) Confirmed Documents: Yes
[2025-04-10 02:10] VITALS: BP 132/74; PULSE 90; RESP 16; TEMP 36.8; O2SAT 98
[2025-04-10] MEDS: Lactated Ringers 1,000 ML 120 ML IV ×3 (04:03→21:33)
[2025-04-10 06:09] VITALS: BP 121/74; PULSE 91; RESP 16; TEMP 36.7; O2SAT 96
[2025-04-10 08:09] VITALS: BP 120/70; PULSE 91; RESP 16; TEMP 37.1; O2SAT 94
--- NOTE | 2025-04-10 08:37 | RAD_ITS ---
PROCEDURE: ABDOMEN SINGLE VIEW 04/10/2025 REASON FOR EXAM: SMALL BOWEL OBSTRUCTION TECHNIQUE: Procedure Code: RADABD Modality: DX Procedure: Two-view supine abdomen COMPARISON: Small-bowel series of 04/09/2025. RAD/Abdomen Single View IMPRESSION: Common duct stent unchanged in position. Stable positioning of the coiled nasogastric tube. Dilation of multiple small bowel loops is again prominently seen, without clear interval improvement since the study of the day before. The remainder of the examination is unchanged. Reading Location: [id number]
--- NOTE | 2025-04-10 08:42 | PCM.PN.SRG ---
Subjective Subjective Patient evaluated resting comfortably in bed. He notes sore throat otherwise no concerns this morning. He denies any abdominal pain/discomfort. He denies any nausea. NG tube intact. Objective Data Objective Data Vital Signs: Vital Signs Temp Pulse Resp BP Pulse Ox O2 Del Method 98.7 F 91 16 120/70 94 Room Air 04/10/25 08:09 04/10/25 08:09 04/10/25 08:09 04/10/25 08:09 04/10/25 08:09 04/10/25 08:10 Oxygen Delivery Method Room Air Weight: 222 lb 15.996 oz Body Mass Index (BMI) 33.9 Intake & Output: Intake and Output for Last 24 Hours 04/08/25 04/09/25 04/10/25 23:59 23:59 23:59 Intake Total 2260 / 2260 3093.75 / 3093.75 796 / 796 Output Total 1800 / 1800 1605 / 1605 900 / 900 Balance 460 / 460 1488.75 / 1488.75 -104 / -104 Lab / Micro Data 04/09/25 06:25 04/09/25 06:25 Radiography Diagnostic Testing: Radiology Impression Small Bowel X-Ray 04/09/25 09:10 IMPRESSION: Persistent small bowel dilatation. Incomplete study. Findings suggestive of small-bowel obstruction. Reading Location: [place] [id number] Physical Exam HEENT HEENT Narrative: NG tube intact GI GI Narrative: Abdomen- soft, distended. Hypoactive bowel sounds. Assessment & Plan Assessment/Plan (1) Intractable vomiting: (2) SBO (small bowel obstruction): PLAN: Plan I am following this patient in conjunction with Dr. Philip. She will independently evaluate this patient. Order KUB today Clamp NG tube for 4 hours and reconnect to suction Hopeful discontinuation of NG tube later today Continue ambulation and encourage I.S. We will continue to monitor this patient Charges/Coding Visit Charges Inpatient E&M: 15187 Subs Hosp L1 (post-op; no charge)
[2025-04-10] MEDS: Pantoprazole Sodium 40 MG in 0.9% Normal Saline (100mL MB+) 100 ML 300 MG IV ×2 (10:12→21:34)
[2025-04-10 14:09] VITALS: BP 102/70; PULSE 88; RESP 16; TEMP 36.7; O2SAT 96
[2025-04-10 20:33] VITALS: BP 118/73; PULSE 83; RESP 18; TEMP 37.2; O2SAT 96
[2025-04-11 02:42] VITALS: BP 119/73; PULSE 82; RESP 18; TEMP 37.1; O2SAT 95
[2025-04-11] MEDS: Lactated Ringers 1,000 ML 120 ML IV ×2 (05:20→21:14)
--- NOTE | 2025-04-11 07:00 | RAD_ITS ---
PROCEDURE: ABD INC DECUB AND/OR ERECT 04/11/2025 REASON FOR EXAM: ABDOMINAL DISTENTION TECHNIQUE: Procedure Code: RADABDMV Modality: DX Procedure: ABD INC DECUB AND/OR ERECT COMPARISON: Prior study dated April 09, 2025. FINDINGS: Bowel gas: Persistent mildly dilated small bowel loops with air-fluid levels. Gas and fecal material seen throughout the colon. Findings suggestive of incomplete small bowel obstruction. Calcifications: No suspicious calcifications. Bones: There are degenerative changes of the spine. Other: Once again, a biliary stent is seen in the common bile duct. The previously seen nasogastric tube has been withdrawn. Atelectasis at the left lung base. RAD/Abd Inc Decub and/or Erect IMPRESSION: Improvement in the small bowel dilatation with air-fluid levels. Gas and fecal material seen throughout the colon. Reading Location: [place] [address]
[2025-04-11 08:00] VITALS: BP 133/86; PULSE 74; RESP 16; TEMP 36.4; O2SAT 97
--- NOTE | 2025-04-11 09:06 | PCM.PN.SRG ---
Subjective Subjective Patient evaluated resting comfortably in bed. He notes abdominal cramping as though his bowels are moving. He denies any nausea, vomiting. He continues to note sore throat. He has had multiple bowel movements yesterday and 2 small loose overnight. He has passed flatus. Objective Data Objective Data Vital Signs: Vital Signs Temp Pulse Resp BP Pulse Ox O2 Del Method 98.7 F 82 18 119/73 95 Room Air 04/11/25 02:42 04/11/25 02:42 04/11/25 02:42 04/11/25 02:42 04/11/25 02:42 04/11/25 02:42 Oxygen Delivery Method Room Air Weight: 223 lb 1.725 oz Body Mass Index (BMI) 33.9 Intake & Output: Intake and Output for Last 24 Hours 04/09/25 04/10/25 04/11/25 23:59 23:59 23:59 Intake Total 3093.75 / 3093.75 2920 / 2920 934 / 934 Output Total 1605 / 1605 1050 / 1050 Balance 1488.75 / 1488.75 1870 / 1870 934 / 934 Lab / Micro Data 04/09/25 06:25 04/09/25 06:25 Radiography Diagnostic Testing: Radiology Impression KUB X-Ray 04/10/25 08:37 IMPRESSION: Common duct stent unchanged in position. Stable positioning of the coiled nasogastric tube. Dilation of multiple small bowel loops is again prominently seen, without clear interval improvement since the study of the day before. The remainder of the examination is unchanged. Reading Location: [address] Physical Exam GI GI Narrative: Abdomen- slightly distended. soft. Hypoactive bowel sounds throughout. Nontender Assessment & Plan Assessment/Plan (1) History of incisional hernia repair: (2) SBO (small bowel obstruction): (3) S/P laparoscopic cholecystectomy: PLAN: Plan I am following this patient in conjunction with Dr. Philip. She will independently evaluate this patient. Labs reviewed Order KUB for today Continue NPO at this time, may increase later today No plans for discharge today We will continue to monitor this patient Charges/Coding Visit Charges Inpatient E&M: 65874 Subs Hosp L1 (post-op; no charge)
[2025-04-11] MEDS: Pantoprazole Sodium 40 MG in 0.9% Normal Saline (100mL MB+) 100 ML 300 MG IV ×2 (10:35→21:15)
[2025-04-11] MEDS: 0.9% Saline Lock 10 ML Syringe IV ×3 (10:35→21:21)
[2025-04-11 14:50] VITALS: BP 136/83; PULSE 81; RESP 16; TEMP 36.8; O2SAT 97
--- NOTE | 2025-04-11 18:10 | RAD_ITS ---
PROCEDURE: ABDOMEN SINGLE VIEW 04/11/2025 REASON FOR EXAM: EMESIS TECHNIQUE: Procedure Code: RADABD Modality: DX Procedure: ABDOMEN SINGLE VIEW COMPARISON: Earlier same day 04/11/2025, and 04/10/2025. CT 04/08/2025. FINDINGS: Persistent dilated air-filled small bowel loops grouped in the central abdomen compatible with small-bowel obstruction. No discernible free air. Rectal gas is seen. Biliary stent noted. RAD/Abdomen Single View IMPRESSION: Persistent dilated air-filled small bowel loops suggesting SBO or segmental ile us. Reading Location: [id number]
[2025-04-11 21:09] VITALS: BP 129/77; PULSE 88; RESP 16; TEMP 37.4; O2SAT 97
--- NOTE | 2025-04-12 03:40 | CT_ITS ---
PROCEDURE: ABDOMEN WITH ORAL CONT ONLY 04/12/2025 REASON FOR EXAM: N/V TECHNIQUE: Procedure Code: CTABDWOPO Modality: CT Procedure: ABDOMEN WITH ORAL CONT ONLY Oral contrast was also used. coronal and Sagittal reconstruction series were provided. One or more dose reduction techniques were used (e.g., Automated exposure control, adjustment of the mA and/or kV according to patient size, use of iterative reconstruction technique CONTRAST: None RADIATION DOSE SUMMARY: CTDlvol: 17.04 mGy DLP: 974.81 mGycm COMPARISON: Previous plain films FINDINGS: Noncontrast technique limits evaluation of the abdominal viscera. Lung bases: Clear Liver: Normal size. No mass. Pneumobilia noted in the left lobe. Gallbladder: Surgically absent. Biliary stent noted in the common bile duct. Spleen: Normal size. Pancreas: Normal size without evidence of mass surrounding inflammation or ductal dilation. Adrenals: Unremarkable Kidneys: No obstructive uropathy or suspicious solid renal lesion Bowel: Distended contrast filled small bowel loops predominantly in the left half of the abdomen consistent with a developing obstruction. There is no submucosal thickening or edema present, there is some subtle mesenteric twisting noted in the left lower quadrant on coronal recon images 30 through 42 which may due to adhesions from previous surgery. No clearly demonstrated transition point it is likely in the mid to distal ileum is there are non distended noncontrast containing small bowel loops noted distally. The colon is decompressed, scattered colonic diverticula noted without CT evidence of acute diverticulitis. Normal appendix is seen on coronal recon images 75 through 83 Lymph nodes: No suspicious bulky mesenteric or retroperitoneal lymphadenopathy Vasculature: The abdominal aorta and IVC are normal. Peritoneum / Retroperitoneum: No free fluid or air Bones: Mild degenerative bony changes in the lower lumbar spine CT/Abdomen WITH ORAL Cont Only IMPRESSION: Likely developing small bowel obstruction as there are distended contrast fille d stomach and proximal small bowel. I suspect there are underlying adhesions from previous surgery and there is mesenteric tw isting noted on coronal recon images 30 through 42. No oral contrast is noted in distal small bowel loops are within the colon Scattered colonic diverticulosis, no CT evidence of acute diverticulitis No suspicious solid organ abnormality. There has been previous removal of the gallbladder, there is a biliary stent present and pneumobilia noted in the left lobe of the liver No free intraperitoneal fluid, air, or suspicious adenopathy, normal appendix v isualized Reading Location: [id number]
[2025-04-12 04:08] VITALS: BP 141/81; PULSE 85; RESP 18; TEMP 36.9; O2SAT 97
[2025-04-12] MEDS: Lactated Ringers 1,000 ML 120 ML IV ×3 (05:19→21:15)
--- NOTE | 2025-04-12 07:50 | RAD_ITS ---
PROCEDURE: ABD INC DECUB AND/OR ERECT 04/12/2025 REASON FOR EXAM: SMALL BOWEL OBSTRUCTION TECHNIQUE: Procedure Code: RADABDMV Modality: DX Procedure: Four view abdomen INC DECUB AND/OR ERECT COMPARISON: Abdomen study of 04/11/2020. RAD/Abd Inc Decub and/or Erect IMPRESSION: No evidence of pneumoperitoneum. Common duct stent remains in place. Air and stool are seen throughout the large bowel and rectum. Dilated small bowel loops are again seen, but notably partially improved since the prior study of the day before. Findings are concerning for possible partial small bowel obstruction. No interval osseous change is seen. Reading Location: [id number]
[2025-04-12 08:12] VITALS: BP 138/85; PULSE 87; RESP 16; TEMP 36.9; O2SAT 94
[2025-04-12] MEDS: Pantoprazole Sodium 40 MG in 0.9% Normal Saline (100mL MB+) 100 ML 300 MG IV (08:31)
--- NOTE | 2025-04-12 09:06 | PCM.PN.SRG ---
Subjective Subjective Patient evaluated resting comfortably in bed. Patient denies any current nausea. He notes feeling tight in his abdomen. He denies true pain. He notes his sore throat has improved. Objective Data Objective Data Vital Signs: Vital Signs Temp Pulse Resp BP Pulse Ox O2 Del Method 98.5 F 87 16 138/85 H 94 Room Air 04/12/25 08:12 04/12/25 08:12 04/12/25 08:12 04/12/25 08:12 04/12/25 08:12 04/12/25 08:12 Oxygen Delivery Method Room Air Weight: 223 lb 1.725 oz Body Mass Index (BMI) 33.9 Intake & Output: Intake and Output for Last 24 Hours 04/10/25 04/11/25 04/12/25 23:59 23:59 23:59 Intake Total 2920 / 2920 3334 / 3334 2015 Output Total 1050 / 1050 1200 / 1200 Balance 1870 / 1870 2134 / 2134 2015 Lab / Micro Data 04/09/25 06:25 04/09/25 06:25 Radiography Diagnostic Testing: Radiology Impression Abdomen X-Ray 04/11/25 07:00 IMPRESSION: Improvement in the small bowel dilatation with air-fluid levels. Gas and fecal material seen throughout the colon. [facility] X-[facility] 04/11/25 18:10 IMPRESSION: Persistent dilated air-filled small bowel loops suggesting SBO or segmental ileus. Reading Location: [facility] Abdomen CT 04/12/25 03:40 IMPRESSION: Likely developing small bowel obstruction as there are distended contrast filled stomach and proximal small bowel. I suspect there are underlying adhesions from previous surgery and there is mesenteric twisting noted on coronal recon images 30 through 42. No oral contrast is noted in distal small bowel loops are within the colon Scattered colonic diverticulosis, no CT evidence of acute diverticulitis No suspicious solid organ abnormality. There has been previous removal of the gallbladder, there is a biliary stent present and pneumobilia noted in the left lobe of the liver No free intraperitoneal fluid, air, or suspicious adenopathy, normal appendix visualized Reading Location: [facility] Abdomen X-Ray 04/12/25 07:50 IMPRESSION: No evidence of pneumoperitoneum. Common duct stent remains in place. Air and stool are seen throughout the large bowel and rectum. Dilated small bowel loops are again seen, but notably partially improved since the prior study of the day before. Findings are concerning for possible partial small bowel obstruction. No interval osseous change is seen. Reading Location: [id number] Physical Exam GI GI Narrative: Abdomen- taunt, distended. Slightly tender. Positive bowel sounds Assessment & Plan Assessment/Plan (1) SBO (small bowel obstruction): (2) History of incisional hernia repair: (3) Intractable vomiting: (4) S/P laparoscopic cholecystectomy: PLAN: Plan I am following this patient in conjunction with Dr. Philip. She will independently evaluate this patient. Unfortunately patient had a large emesis last evening CT scan of the ab/pel was completed early this morning which demonstrated small bowel obstruction from possible adhesions. There is mesenteric twisting noted on the scan as well. Per Dr. Philip, she does not agree with the mesenteric twisting. KUB was ordered this morning and demonstrated air and stool within the large bowel and rectum, dilated small bowel loops are noted Continue NPO status Encourage ambulation and I.S. No surgery recommended at this time Will continue to observe and monitor this patient Charges/Coding Visit Charges Inpatient E&M: 46587 Subs Hosp L1 (post-op; no charge)
[2025-04-12 10:58] VITALS: BP 134/86; PULSE 76; RESP 16; TEMP 36.9; O2SAT 98
[2025-04-12 14:39] VITALS: BP 135/85; PULSE 75; RESP 16; TEMP 36.8; O2SAT 95
[2025-04-12 21:06] VITALS: BP 153/94; PULSE 71; RESP 18; TEMP 36.8; O2SAT 98
[2025-04-12] MEDS: Pantoprazole Sodium 40 MG in 0.9% Normal Saline (100mL MB+) 100 ML 330 MG IV (21:15)
[2025-04-13 04:45] VITALS: BP 131/88; PULSE 70; RESP 18; TEMP 36.8; O2SAT 95
[2025-04-13] MEDS: Lactated Ringers 1,000 ML 120 ML IV ×2 (05:14→15:50)
--- NOTE | 2025-04-13 07:20 | PN.SURG_ITS ---
Subjective Subjective Patient seen and examined during AM rounds. He was initially found walking the halls and returned to his room where he reported that he has minimal pain. He describes a bowel movement this morning but no significant appetite. He denies any nausea. Objective Data Objective Data Vital Signs: Vital Signs Temp Pulse Resp BP Pulse Ox O2 Del Method 98.2 F 70 18 131/88 H 95 Room Air 04/13/25 04:45 04/13/25 04:45 04/13/25 04:45 04/13/25 04:45 04/13/25 04:45 04/13/25 04:45 Oxygen Delivery Method Room Air Weight: 223 lb 1.725 oz Body Mass Index (BMI) 33.9 Intake & Output: Intake and Output for Last 24 Hours 04/11/25 04/12/25 04/13/25 23:59 23:59 23:59 Intake Total 3334 / 3334 3952 / 3952 958 / 958 Output Total 1200 / 1200 Balance 2134 / 2134 3952 / 3952 958 / 958 Lab / Micro Data 04/13/25 09:00 04/13/25 09:00 Radiography Diagnostic Testing: Radiology Impression Abdomen X-Ray 04/12/25 07:50 IMPRESSION: No evidence of pneumoperitoneum. Common duct stent remains in place. Air and stool are seen throughout the large bowel and rectum. Dilated small bowel loops are again seen, but notably partially improved since the prior study of the day before. Findings are concerning for possible partial small bowel obstruction. No interval osseous change is seen. Reading Location: [address] Physical Exam Const oriented x3 and no apparent distress Resp normal respiratory effort GI GI Narrative: Distended, soft, operative dressings are removed and Steri-Strips are intact without arianna-incisional erythema. Largely nontender to palpation x 4 quadrants. Assessment & Plan Assessment/Plan (1) SBO (small bowel obstruction): (2) History of incisional hernia repair: (3) Intractable vomiting: PLAN: Now resolved (4) S/P laparoscopic cholecystectomy: PLAN: Plan Patient's status post robot-assisted cholecystectomy followed by incisional hernia repair with mesh placement followed by diagnostic laparoscopy with adhesiolysis for small bowel obstruction. He continues to display evidence of ongoing ileus. He reports bowel movement earlier today, however, denies ongoing flatus and denies an appetite. Scheduled abdominal x-ray continues to show mildly dilated loops of small bowel in addition to nonspecific gas pattern throughout the colon. He is encouraged to continue ambulation and chewing gum/hard candy. He was visited later in the afternoon and his abdominal exam exhibits some improvements. Therefore, I granted him advance to clear liquid diets without carbonation. Gradual return to diet strongly urged. Continue inpatient stay. Dr. Daniel will be rounding in my absence this weekend. Justo Max MD General Surgery Endocrine Surgery Pager: [facility] [address] [place] [address], [facility], [address] [place] [address] Office: [phone] Charges/Coding Visit Charges Inpatient E&M: 44988 Subs Hosp L2
[2025-04-13 08:35] VITALS: BP 139/90; PULSE 82; RESP 16; TEMP 36.6; O2SAT 98
--- NOTE | 2025-04-13 08:40 | RAD_ITS ---
PROCEDURE: ABDOMEN SINGLE VIEW 04/13/2025 REASON FOR EXAM: ILEUS TECHNIQUE: Procedure Code: RADABD Modality: DX Procedure: ABDOMEN SINGLE VIEW COMPARISON: Yesterday FINDINGS: Bowel gas: Persistent borderline distended air-filled loops in the mid abdomen consistent with focal ileus. No significant change since the previous study is noted. There is no evidence of oral contrast in the colon which was from a CT scan from yesterday as well. The presence of the contrast within the sigmoid colon and rectum suggests there is no obstruction. Calcifications: No suspicious calcifications Bones: Bony structures are unremarkable Other: Biliary stent noted RAD/Abdomen Single View IMPRESSION: Persistent focal ileus noted in the central mid abdomen Presence of oral contrast in the colon, particularly the sigmoid colon and rect um suggests there is no obstruction present No free air Reading Location: [id number]
[2025-04-13 09:19] LABS: Hematocrit 39.4 % (40-54); Hemoglobin 13.5 g/dL (13.0-16.5); Immature Granulocytes Count 0.100 X10^3/uL (0.0-0.0); Mean Corp Hgb Conc 34.3 g/dL (32-36); Mean Corpuscular Volume 81.1 fL (80-94); Mean Platelet Vol. 9.9 fl (6.2-12.0); NRBC Flagged by Analyzer 0 % (0-5); Platelet Count 274 K/mm3 (150-450); RBC Distribution Width CV 12.8 % (11.6-14.6); RBC Distribution Width SD 37.4 fl (35.1-43.9); Red Blood Count 4.86 M/mm3 (4.6-6.2); White Blood Count 7.2 K/mm3 (4.4-11.0)
[2025-04-13] MEDS: Pantoprazole Sodium 40 MG in 0.9% Normal Saline (100mL MB+) 100 ML 330 MG IV ×2 (09:25→22:18)
[2025-04-13 09:41] LABS: Anion Gap 16 (5-15); BUN 9 mg/dL (4-19); BUN/Creat Ratio 11.0 RATIO (10-20); Calcium,Total 8.8 mg/dL (7.6-11.0); Carbon Dioxide 22.6 mmol/L (21.0-32.0); Chloride 102 mmol/L (98-108); Estimated Creatinine Clearance 122.77 ml/min (50-250); Glucose 77 mg/dL (70-99); Magnesium 2.0 mg/dL (1.5-2.2); Potassium 3.4 mmol/L (3.3-5.1)
[2025-04-13 12:13] VITALS: BP 152/94; PULSE 64; RESP 16; TEMP 36.8; O2SAT 97
[2025-04-13 15:31] VITALS: BP 139/85; PULSE 73; RESP 16; TEMP 36.8; O2SAT 98
[2025-04-13 21:59] VITALS: BP 143/84; PULSE 72; RESP 16; TEMP 36.9; O2SAT 96
[2025-04-14 00:55] VITALS: BP 138/84; PULSE 74; RESP 16; TEMP 36.9; O2SAT 95
[2025-04-14] MEDS: Lactated Ringers 1,000 ML 120 ML IV ×3 (01:00→16:57)
[2025-04-14 06:16] VITALS: BP 132/86; PULSE 74; RESP 16; TEMP 36.7; O2SAT 95
[2025-04-14 08:24] VITALS: BP 140/91; PULSE 71; RESP 17; TEMP 36.6; O2SAT 97
[2025-04-14] MEDS: Pantoprazole Sodium 40 MG in 0.9% Normal Saline (100mL MB+) 100 ML 330 MG IV ×2 (09:16→21:47)
--- NOTE | 2025-04-14 13:41 | PCM.PN.SRG ---
Subjective Subjective Patient seen and evaluated on rounds. Patient states that he is doing much better today. He has passing flatus and has had bowel movements. He has been tolerating clear liquid diet without problems Objective Data Objective Data Vital Signs: Vital Signs Temp Pulse Resp BP Pulse Ox O2 Del Method 97.8 F 71 17 140/91 H 97 Room Air 04/14/25 08:24 04/14/25 08:24 04/14/25 08:24 04/14/25 08:24 04/14/25 08:24 04/14/25 08:24 Oxygen Delivery Method Room Air Weight: 223 lb 1.725 oz Body Mass Index (BMI) 33.9 Intake & Output: Intake and Output for Last 24 Hours 04/12/25 04/13/25 04/14/25 23:59 23:59 23:59 Intake Total 3952 / 3952 2086 / 2286 2296 / 2296 Balance 3952 / 3952 2086 / 2286 2296 / 2296 Lab / Micro Data 04/13/25 09:00 04/13/25 09:00 Physical Exam Narrative He is alert and oriented x 3. He is in no acute distress. Abdomen is soft, nontender and nondistended Assessment & Plan Assessment/Plan (1) SBO (small bowel obstruction): (2) Intractable vomiting: (3) History of incisional hernia repair: PLAN: Plan Patient's status post robot-assisted cholecystectomy followed by incisional hernia repair with mesh placement followed by diagnostic laparoscopy with adhesiolysis for small bowel obstruction. His postoperative ileus seems to be steadily improving. He admits to flatus and bowel movements Patient has been up and ambulating. Will advance diet. Anticipate discharge in the next day or 2
[2025-04-14 14:04] VITALS: BP 126/90; PULSE 74; RESP 16; TEMP 36.6; O2SAT 95
[2025-04-14 21:44] VITALS: BP 130/91; PULSE 71; RESP 16; TEMP 37.1; O2SAT 97
[2025-04-15] MEDS: Lactated Ringers 1,000 ML 120 ML IV (01:24)
[2025-04-15 06:16] VITALS: BP 138/80; PULSE 74; RESP 16; TEMP 36.7; O2SAT 94
[2025-04-15 08:08] VITALS: BP 140/88; PULSE 71; RESP 16; TEMP 36.7; O2SAT 95
--- NOTE | 2025-04-15 11:48 | PCM.PN.SRG ---
Subjective Subjective Patient seen and evaluated on rounds this morning. He states that he is doing well. He has been tolerating diet. He is passing gas and having bowel movements. He would like to go home today if possible Objective Data Objective Data Vital Signs: Vital Signs Temp Pulse Resp BP Pulse Ox O2 Del Method 98.1 F 71 16 140/88 H 95 Room Air 04/15/25 08:08 04/15/25 08:08 04/15/25 08:08 04/15/25 08:08 04/15/25 08:08 04/15/25 08:08 Oxygen Delivery Method Room Air Weight: 223 lb 1.725 oz Body Mass Index (BMI) 33.9 Intake & Output: Intake and Output for Last 24 Hours 04/13/25 04/14/25 04/15/25 23:59 23:59 23:59 Intake Total 2085 / 2286 3754 / 3754 1865.25 / 1865.25 Balance 2085 / 2286 3754 / 3754 1865.25 / 1865.25 Lab / Micro Data 04/13/25 09:00 04/13/25 09:00 Physical Exam Narrative He is alert and oriented x 3. He is in no acute distress. Abdomen is soft and on tender. His abdomen does seem a little distended however he states that this is his normal abdominal size. Assessment & Plan Assessment/Plan (1) History of incisional hernia repair: (2) Intractable vomiting: (3) SBO (small bowel obstruction): (4) Incisional hernia with bowel obstruction: (5) S/P laparoscopic cholecystectomy: PLAN: Plan Patient's status post robot-assisted cholecystectomy followed by incisional hernia repair with mesh placement followed by diagnostic laparoscopy with adhesiolysis for small bowel obstruction. His postoperative ileus seems to be steadily improving. He admits to flatus and bowel movements Patient has been up and ambulating. Patient tolerated diet advancement without incident Will plan discharge for today. Patient is to follow-up in our office in about 1-2 weeks
--- NOTE | 2025-04-15 11:50 | PCM.DC.SUM ---
Providers Date of Admission: 04/09/25 Date of Discharge: 04/15/25 Primary Care Physician: No Primary Care Phys Reason For Visit: INGUINAL HERNIA REPAIR Diagnosis Discharge Diagnosis (1) History of incisional hernia repair: Status: Acute Code(s): Z98.890 - Other specified postprocedural states; Z87.19 - Personal history of other diseases of the digestive system (2) Intractable vomiting: Status: Acute Code(s): R11.10 - Vomiting, unspecified (3) SBO (small bowel obstruction): Status: Resolved Code(s): K56.609 - Unspecified intestinal obstruction, unspecified as to partial versus complete obstruction (4) Incisional hernia with bowel obstruction: Status: Resolved Code(s): K43.0 - Incisional hernia with obstruction, without gangrene (5) S/P laparoscopic cholecystectomy: Status: Acute Code(s): Z90.49 - Acquired absence of other specified parts of digestive tract Plan Patient's status post robot-assisted cholecystectomy followed by incisional hernia repair with mesh placement followed by diagnostic laparoscopy with adhesiolysis for small bowel obstruction. His postoperative ileus seems to be steadily improving. He admits to flatus and bowel movements Patient has been up and ambulating. Patient tolerated diet advancement without incident Will plan discharge for today. Patient is to follow-up in our office in about 1-2 weeks Medications at Discharge Home Medications omeprazole 40 mg capsule,delayed release 40 mg PO QDAY #30 caps 03/23/25 oxycodone 5 mg capsule 5 mg PO Q6H PRN pain 3 days #10 caps 04/04/25 Hospital Course Operations - (Diagnostic laparoscopy) Summary of Care Provided Minutes Spent on Discharge: 15 Hospital Course: Patient is a 49-year-old male who recently underwent a robotic cholecystectomy with Dr. Philip. Patient had quite a bit of vomiting after the surgery and subsequently developed a hernia. This hernia was then subsequently repaired. Following the hernia he developed a small bowel obstruction. He then underwent a diagnostic laparoscopy and a loop of bowel was found adherent to the undersurface of the mesh. This was released. Patient had an ileus postoperatively. Eventually he was able to regain bowel function and diet was gradually advanced. Currently patient is tolerating diet well. He denies any nausea or vomiting. No abdominal pain or distention. Patient is requesting discharge home. This is reasonable as he is doing well Physical Exam Narrative He is alert and oriented x 3. He is in no acute distress. Abdomen is soft, nontender and nondistended. Incisions are clean dry and intact Weight / BMI Weight Weight: 223 lb 1.725 oz Body Mass Index (BMI) 33.9 ABG / Lab / Microbiology Data 04/13/25 09:00 04/13/25 09:00 D/C Instructions Discharge Activity: Return to Normal Activity Lifting Restrictions: No lifting pushing or pulling more than 20 pounds for about 6 weeks Call your doctor if your incision/area has: Continuous Slow Oozing, Sudden Increased Bleeding, Increased Pain/ Swelling, Increased Redness, Foul Smelling Discharge and Swelling at the incision site Call your doctor if you observe: Fever of 101 or Higher and Inability to have a bowel movement Cleanse incision/area with: Soap & Water DC O2, CPAP, BIPAP Needs Home O2 Discharge instructions: No DC home with Oxygen: No Please Follow Up With: Abbie Philip MD When: 1 to 2 weeks. Please call office to schedule appointment Meaningful Use Info Meaningful Use Meaningful Use Diagnoses (Choose all that apply): None applicable Discharge Plan Admission Admit Date/Time: 04/09/25 14:32 Primary Reason for Your Visit: Small bowel obstruction Attending Provider: Abbie Philip Primary Care Provider: Judy Bland Primary Discharge Orders/Prescriptions Prescriptions: Continued omeprazole 40 mg capsule,delayed release(DR/EC) 40 mg PO QDAY Qty: 30 3RF Rx Instructions: swallow whole; do not crush, chew, dissolve, cut, break oxycodone 5 mg capsule 5 mg PO Q6H PRN (Reason: pain) 3 Days Qty: 10 0RF Referrals / Follow Up: Care Physician,No Primary [Primary Care Provider, Medical] Disposition Disposition (needs filled in before D/C Order can be placed): Home, Self Care
[2025-04-15 13:18] VITALS: BP 110/76; PULSE 77; RESP 16; TEMP 36.7; O2SAT 96
== END 2025-04-15 12:08 | disposition home or self-care (01) | DRG 336 ==
LOC: ED 15:34 → SDC 15:36 → ACINP 15:37 → SDC 17:50 → MS3 17:50
PROVIDERS: Surgery; Admitting Provider Surgery; Emergency Provider Emergency Medicine; Visit Provider Surgery
PROC: 0WUF0JZ Supplement Abdominal Wall with Synthetic Substitute, Open Approach (ICD-10-PCS; principal; 2025-04-07 16:00)
PROC: 0DNW4ZZ Release Peritoneum, Percutaneous Endoscopic Approach (ICD-10-PCS; CPT 44202; principal; 2025-04-09 11:10)
DX: K43.0 Incisional hernia with obstruction, without gangrene (principal); K56.609 Unspecified intestinal obstruction, unspecified as to partial versus complete obstruction; K56.50 Intestinal adhesions [bands], unspecified as to partial versus complete obstruction; K80.12 Calculus of gallbladder with acute and chronic cholecystitis without obstruction; K21.9 Gastro-esophageal reflux disease without esophagitis; Z79.899 Other long term (current) drug therapy; Z87.19 Personal history of other diseases of the digestive system; Z90.49 Acquired absence of other specified parts of digestive tract
CPT/HCPCS: 36415; 74018; 74019; 74150; 74176; 74177; 74250; 80048; 80053; 80076; 83690; 83735; 84100; 85025; 88304; 94668; 99252; 99284; C1781; Q9967; A4216; G0463; J2405

== ENCOUNTER 2025-05-15 10:31 | Day surgery (SDC) | payer OTHER, SELFPAY ==
[2025-05-15] VITALS (8 sets, daily range): BP systolic 92–117; BP diastolic 65–86; PULSE 67–73; RESP 14–16; TEMP 36.2–36.6; O2SAT 93–100; BMI 33.9
[2025-05-15] MEDS: Lactated Ringers 1,000 ML 15 ML IV (11:04)
--- NOTE | 2025-05-15 11:25 | PCM.PRE.AN2 ---
ASA Classification* ASA Classification ASA Classification: 2 Assessment & Plan Anesthesia* Anesthesia Assessment Anesthesia Assessment: Discussed sedation and/or anesthesia options, risks, benefits, and alternatives with patient/parents/legal guardian/POA. Questions invited. The patient/parents/legal guardian/POA seems to understand and agrees to proceed with anesthesia plan. Reviewed the physical assessment, medical history, allergy history and patient home medications list prior to surgery/procedure/anesthetic and documented any changes. Performed airway and anesthesia risk assessments. Anesthesia Type Anesthesia Type: MAC (Confirm with proceduralist - pt states stent removal, if so and DrAnt Friend is agreeable, can do under MAC) History Source History Obtained from:: Patient and Chart Anesthesia Focused Assessment* Temperature: 97.4 F Pulse Rate: 72 Blood Pressure: 117/86 Respiratory Rate: 16 Pulse Ox: 100 Oxygen Delivery Method: Room Air Airway Assessment Mouth opens: >3 cm Mallampati Score: II Teeth Condition: Intact Neck Range of motion (ROM): Full ROM Labs Anesthesia Preop lab: CBC WBC, (4.4-11.0) 7.2 K/mm3 04/13/25, 09:00 RBC, (4.6-6.2) 4.86 M/mm3 04/13/25, 09:00 Hgb, (13.0-16.5) 13.5 g/dL 04/13/25, 09:00 Hct, (40-54) 39.4 % L 04/13/25, 09:00 Plt Count, (150-450) 274 K/mm3 04/13/25, 09:00 CHEMISTRY Potassium, (3.3-5.1) 3.4 mmol/L 04/13/25, 09:00 Sodium, (133-145) 141 mmol/L 04/13/25, 09:00 Magnesium, (1.5-2.2) 2.0 mg/dL 04/13/25, 09:00 Phosphorus, (2.7-4.5) 3.3 mg/dL 04/13/25, 09:00 BUN, (4-19) 9 mg/dL 04/13/25, 09:00 Creatinine, (0.70-1.20) 0.83 mg/dL 04/13/25, 09:00 Glucose, (70-99) 77 mg/dL 04/13/25, 09:00 COAG PT, (11.7-14.9) 13.3 SECONDS 03/16/25, 09:54 Pre-Assessment Diagnosis/Proposed Procedure Planned Operative Procedure(s): ERCP Anesthesia History Anesthesia History - custom home installer: Anesthesia History - custom home installer Hx Hospitalization Yes: gallbladder 05/14/25 08:37 Any Problems With Anesthesia Yes: ponv 05/14/25 08:37 Cholinesterase deficiency No 05/14/25 08:37 You/Your Family Experience No 05/14/25 08:37 fever (hyperthermia) with Relationship Recent Exposure to Contagious No 05/15/25 11:00 Disease Does patient have nerve No 05/14/25 08:37 stimulator Patient instructed to have device shut off --Does patient have Pacemaker No 05/15/25 11:00 or ICD? When Was Last Pacemaker Check QUESTION #4 FULL TEXT: You/Your Family Experience fever (hyperthermia) with Anesthesia Last Oral Intake Last Oral intake: Last Oral Intake NPO since 06:30 05/15/25 11:00 Meds taken in AM with sips of No 05/15/25 11:00 water? Meds patient instructed to take am of surgery PONV PONV - custom home installer: PONV - custom home installer Female No 05/14/25 08:37 HX of Motion Sickness Yes 05/14/25 08:37 HX of N/V After Surgery Yes 05/14/25 08:37 Non-Smoker Yes 05/14/25 08:37 Duration of Surgery greater No 05/14/25 08:37 than 60 minutes Number of Risk Factors 3 05/14/25 08:37 PONV Score Moderate Risk 05/14/25 08:37 Height & Weight Height & Weight: Anesthesia: Height & Weight Height 5 ft 8 in 05/15/25 11:00 Weight: 101.1 kg 05/15/25 11:00 Body Mass Index (BMI) 33.9 05/15/25 11:00 Respiratory Assessment Respiratory Assessment - custom home installer: Respiratory Tract Infection Hx - custom home installer Hx Respiratory Tract Infection No 05/14/25 08:37 STOP Sleep Apnea STOP Sleep Apnea - custom home installer: STOP Sleep Apnea - custom home installer Hx Hypertension No 05/14/25 08:37 Hx Sleep Apnea No 05/14/25 08:37 CPAP BIPAP Do you snore loudly (louder No 05/14/25 08:37 than talking or can be heard Do you often feel tired/ No 05/14/25 08:37 fatigued/ sleepy during daytime? Has anyone observed you stop No 05/14/25 08:37 breathing during sleep? STOP Results Negative 05/14/25 08:37 QUESTION #5 FULL TEXT : Do you snore loudly (louder than talking or can be heard through closed doors)? 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 Specify any problems Hx of Preganancy in last 3 N/A 05/14/25 08:37 Months Nurse Filling Out Transfusion JZOLLROSCOE 05/14/25 08:37 & Questions: Date: 05/14/25 05/14/25 08:37 Time: 08:40 05/14/25 08:37 Patient unable to answer at this time (ie. confused, unrespo /Reproduction History /Reproductive History - custom home installer: /Reproductive Hx- custom home installer Hx Now No 05/14/25 08:37 Gestational Age (in weeks): EDC: Hx Hx Para Hx Section SAB No 05/14/25 08:37 Does the father of the baby or his family experience fever w Father of the baby Malignant Hypertension history comment Active Medications Active Medications: Current Medications Generic Name Dose Route Start Last Admin Trade Name Freq PRN Reason Stop Dose Admin Lactated Ringer's 1,000 mls @ 15 mls/hr 05/15/25 10:45 05/15/25 11:04 IV 15 mls/hr .Q48H DIA Administration PFSH Medical History (Updated 05/14/25 @ 08:37 by Darcy Faith) Wears glasses Gallstones Wears glasses Fatty liver Heartburn Gastric reflux Non-smoker Nausea Abdominal pain GERD (gastroesophageal reflux disease) Home Medications ?Medication ?Instructions ?Recorded ?Last Taken ?Type omeprazole 40 mg capsule,delayed 40 mg PO QDAY #30 caps 03/23/25 04/03/25 Rx release Allergy/AdvReac Type Severity Reaction Status Date / Time No Known Allergies Allergy Verified 05/15/25 11:00 Family History Mother Arthritis Father Diabetes Heart disease Respiratory disease CVA (cerebral vascular accident) Brother Bowel disease Kidney disease Grandmother Diabetes Sister Thyroid disorder Surgical History History of incisional hernia repair S/P laparoscopic cholecystectomy History of wisdom tooth extraction (~06/21/94) Hx of LASIK History of ERCP (03/16/25) Social History Smoking Status: Never smoker alcohol intake: never substance use type: does not use Review of Systems (Anesthesia) ROS Narrative System reviewed and no additional complaints, except as documented. Physical Exam Const alert, oriented x3 and average body habitus Resp normal respiratory effort, normal air movement and clear to auscultation bilaterally Cardio regular rate, regular rhythm and no murmurs; Negative for diaphoretic
--- NOTE | 2025-05-15 11:30 | FLU_PTH ---
PATIENT: ALONDRA ARITA LOC: EN U#:[id number] AGE/SX: 49/M ROOM: RE05/15/[address]: Dr. Yevgeniy Sarah DO : 1975 BED: DIS: 05/15/2025 SPEC #: [id number] RECD: 05/15/25 12:56 STATUS: TACO RERobert #: [id number] TUSHAR: 05/15/25 11:[address]: Yevgeniy Sarah DEPT: CYTOLOGY RECD BY: Eze Rodgers ENTERED: 05/15/25 13:55 SP TYPE: Fluid LESLYE DR: No Primary Care Phys Tissues: A - Biliary tract, NOS Procedures: Special Stain Group II Surgery Specimen Level IV Cytospin Fluid HEADER OPERATION: ERCP PRE-OP DIAGNOSIS: Status post laparoscopic cholecystectomy, cholelithiasis TISSUE SUBMITTED: A- Biliary stent for cytology DIAGNOSIS CYTOLOGY A. Biliary stent, ERCP (cytospin, cellblock): - Nondiagnostic. - Essentially acellular specimen. CYTOLOGY STUDY Slides are reviewed. CYTOLOGY GROSS A. Received is a 10cm stent with 0.3 ml of yellow thick material labeled with the patient's name and and designated per the requisition as Biliary stent. Submitted for cytology and cell block preparation. Mr 05/15/2025 CPT: 98421,88949
--- NOTE | 2025-05-15 11:49 | PCM.HP.STD ---
HPI - General General Date of Admission: 05/15/25 Date of Service: 05/15/25 Chief Complaint: Biliary stent removal HPI Narrative ALONDRA ARITA, is a 49 M who presents [ Chief Complaint: Status post ERCP [facility] admission 03/16/25-03/18/2025 after presentation to the ED with upper abdominal pain. Right upper quadrant ultrasound with no cholecystitis but cholelithiasis and dilation of the CBD. Admitted for ERCP ERCP 03/16/2025 The entire main bile duct was moderately dilated, with a stone causing an obstruction. - Choledocholithiasis was found. Partial removal was accomplished with biliary sphincterotomy; a stent was inserted. - A biliary sphincterotomy was performed. - The biliary tree was swept. - One temporary stent was placed into the common bile duct. Cholecystectomy 04/04/2025 complicated by incisional hernia and prolonged postop ileus. OV 04/25/25 -no further abd pain -bowels are almost back to normal -here to be scheduled for ERCP with stent removal [facility] Medical History Wears glasses Gallstones Wears glasses Fatty liver Heartburn Gastric reflux Non-smoker Nausea Abdominal pain GERD (gastroesophageal reflux disease) Home Medications ?Medication ?Instructions ?Recorded ?Last Taken ?Type omeprazole 40 mg capsule,delayed 40 mg PO QDAY #30 caps 03/23/25 04/03/25 Rx release Allergy/AdvReac Type Severity Reaction Status Date / Time No Known Allergies Allergy Verified 05/15/25 11:00 Family History Mother Arthritis Father Diabetes Heart disease Respiratory disease CVA (cerebral vascular accident) Brother Bowel disease Kidney disease Grandmother Diabetes Sister Thyroid disorder Surgical History History of incisional hernia repair S/P laparoscopic cholecystectomy History of wisdom tooth extraction (~06/21/94) Hx of LASIK History of ERCP (03/16/25) Social History Smoking Status: Never smoker alcohol intake: never substance use type: does not use ROS Constitutional Constitutional: Denies fatigue, fever(s), poor appetite, weight gain or weight loss Gastrointestinal Gastrointestinal: Denies belching, bloating, change in bowel habits, change in stool character, chewing difficulty, coffee ground emesis, constipation, cramping, diarrhea, dyspepsia, dysphagia, early satiety, excessive flatus, fecal incontinence, heartburn, hematemesis, hematochezia, hemorrhoids, loose stools, melena, nausea, odynophagia, rectal bleeding, tenesmus, vomiting or weight changes Vital Signs Vital Signs Vital Signs: 05/15/25 11:00 05/15/25 11:00 05/15/25 11:00 Temperature 97.4 F L Temperature Source Temporal Pulse Rate 72 Respiratory Rate 16 Respiratory Pattern Normal Blood Pressure 117/86 H Blood Pressure Mean 96 Blood Pressure Position Sitting Blood Pressure Location Right Arm Baseline BP 117/86 Pulse Ox 100 Oxygen Delivery Method Room Air 05/15/25 11:28 Temperature 97.4 F L Temperature Source Pulse Rate 72 Respiratory Rate 16 Respiratory Pattern Blood Pressure 117/86 H Blood Pressure Mean Blood Pressure Position Blood Pressure Location Baseline BP Pulse Ox 100 Oxygen Delivery Method Room Air Weight Weight: 222 lb 14.197 oz Body Mass Index (BMI) 33.9 Physical Exam Const alert, oriented x3, no apparent distress and healthy appearing General Appearance: cooperative GI normal to inspection, nondistended, normoactive bowel sounds, soft to palpation, non-tender and non-distended Percussion: normal to percussion Rectal Exam: deferred Assessment & Plan Assessment/Plan (1) S/P laparoscopic cholecystectomy: (2) Cholelithiasis: PLAN: Plan Assessment and Plan Assessment and Plan (1) S/P laparoscopic cholecystectomy: Status: Acute Comment: Robotic 04/04/2025 (2) History of incisional hernia repair: Status: Acute Comment: 04/07 & take back for Lap MYRIAM 04/09 (3) Cholelithiasis: Status: Acute Plan: Alondra is a healthy 49-year-old male patient with recent hospitalization due to cholelithiasis. Patient underwent ERCP03/16/2025 and was found to have a stone causing obstruction in the main bile duct. Partial removal was accomplished with biliary sphincterotomy and stent placement. He was discharged with plan for outpatient cholecystectomy which he underwent 04/04/2025. This was complicated by an incisional hernia which caused obstruction and postop ileus which required a 9-day hospital stay. Patient doing well today with no further abdominal pain. He reports his bowels are almost back to his baseline. He is here today to be scheduled for ERCP with stent removal. I explained the procedure and need for removal of the stent and he was agreeable to proceed. - Scheduled ERCP with stent pull - Follow-up as needed Note: Portions of this note may have been selectively carried forward from previous documentation to ensure continuity and accuracy of the clinical record. All imported information has been reviewed and updated as necessary to reflect the current patient status, findings, and clinical decision-making for this encounter. [employer] speech recognition document management consultant software was used to create portions of this document. Sound alike and misspelled words, as well as other document management consultant errors may be contained in the documentation.]
--- NOTE | 2025-05-15 12:20 | RAD_ITS ---
PROCEDURE: ERCP BILIARY/PANCREAS; O.R. FLUORO FOR C-ARM 05/15/2025 REASON FOR EXAM: ERCP TECHNIQUE: Procedure Code: RADERCP; RADORFL_C_ARM Modality: DX Procedure: ERCP BILIARY/PANCREAS; O.R. FLUORO FOR C-ARM. Fluoroscopy time: 61.4 seconds. Dose: 25.54 mGy. COMPARISON: None. RAD/ERCP Biliary/Pancreas IMPRESSION: Intraoperative fluoroscopy was performed for ERCP. 6 fluoroscopic images were also obtained. Reading Location: [id number]
--- NOTE | 2025-05-15 12:25 | RAD_ITS ---
PROCEDURE: ERCP BILIARY/PANCREAS; O.R. FLUORO FOR C-ARM 05/15/2025 REASON FOR EXAM: ERCP TECHNIQUE: Procedure Code: RADERCP; RADORFL_C_ARM Modality: DX Procedure: ERCP BILIARY/PANCREAS; O.R. FLUORO FOR C-ARM. Fluoroscopy time: 61.4 seconds. Dose: 25.54 mGy. COMPARISON: None. RAD/O.R. Fluoro for C-Arm IMPRESSION: Intraoperative fluoroscopy was performed for ERCP. 6 fluoroscopic images were also obtained. Reading Location: [id number]
--- NOTE | 2025-05-15 12:43 | OP.PROVAT_ITS ---
05/15/2025 No Primary Care Physician Re : ERCP procedure for Jeffrey Delgadillo Dear Care Physician This procedure was performed on Thursday, May 15, 2025. My impressions and recommendations are as follows: Impressions : - Choledocholithiasis was found. Complete removal was accomplished by biliary sphincterotomy and balloon extraction. - One stent was removed from the biliary tree. - A biliary sphincterotomy was performed. - The biliary tree was swept. Recommendations : My findings are described in the full procedure note, which is enclosed. If I can be of further assistance, please feel free to contact me at . Sincerely, Yevgeniy Sarah, 05/15/2025 12:43:18 PM This report has been signed electronically.
--- NOTE | 2025-05-15 12:43 | OP.ERCP_ITS ---
Patient Name: Jeffrey Delgadillo Procedure Date: 05/15/2025 10:58 AM Date of : 1975 Age: 49 Procedure: ERCP Indications: Bile leak Providers: Yevgeniy Sarah DO Referring MD: Judy Primary Care Physician Medicines: Monitored Anesthesia Care Patient Profile: This is a 49 year old male. Refer to note in patient chart for documentation of history and physical. Patient has symptoms. Complications: No immediate complications. Procedure: Pre-Anesthesia Assessment: - Prior to the procedure, a History and Physical was performed, and patient medications and allergies were reviewed. The patient is competent. The risks and benefits of the procedure and the sedation options and risks were discussed with the patient. All questions were answered and informed consent was obtained. Patient identification and proposed procedure were verified by the physician in the pre-procedure area. Mental Status Examination: alert and oriented. Airway Examination: normal oropharyngeal airway and neck mobility. Respiratory Examination: clear to auscultation. CV Examination: normal. Prophylactic Antibiotics: The patient does not require prophylactic antibiotics. Prior Anticoagulants: The patient has taken no anticoagulant or antiplatelet agents. ASA Grade Assessment: II - A patient with mild systemic disease. After reviewing the risks and benefits, the patient was deemed in satisfactory condition to undergo the procedure. The anesthesia plan was to use monitored anesthesia care (MAC). Immediately prior to administration of medications, the patient was re-assessed for adequacy to receive sedatives. The heart rate, respiratory rate, oxygen saturations, blood pressure, adequacy of pulmonary ventilation, and response to care were monitored throughout the procedure. The physical status of the patient was re-assessed after the procedure. After obtaining informed consent, the scope was passed under direct vision. Throughout the procedure, the patient's blood pressure, pulse, and oxygen saturations were monitored continuously. The Duodenoscope was introduced through the mouth, and advanced to the duodenum and used to inject contrast into the bile duct. The ERCP was accomplished without difficulty. The patient tolerated the procedure well. Scope In: 12:24:14 PM Scope Out: 12:36:06 PM Total Procedure Duration Time 0 hours 11 minutes 52 seconds Findings: The dog walker film was normal. The esophagus was successfully intubated under direct vision. The scope was advanced to a normal major papilla in the descending duodenum without detailed examination of the pharynx, larynx and associated structures, and upper GI tract. The upper GI tract was grossly normal. One stent was removed from the biliary tree using a snare and sent for cytology. The stent was found to be partially occluded via the water column test. A 0.035 inch x 260 cm angled Dreamwire was passed into the biliary tree. The short-nosed traction sphincterotome was passed over the guidewire and the bile duct was then deeply cannulated. Contrast was injected. I personally interpreted the bile duct images. There was brisk flow of contrast through the ducts. Image quality was adequate. Contrast extended to the entire biliary tree. Opacification of the entire opacified area and entire biliary tree was successful. The maximum diameter of the ducts was 10 mm. A 5 mm biliary sphincterotomy was made with a traction (standard) sphincterotome using ERBE electrocautery. There was no post-sphincterotomy bleeding. The biliary tree was swept with a 12 mm balloon starting at the upper third of the main bile duct, middle third of the main bile duct, lower third of the main duct, left intrahepatic duct(s) and left main hepatic duct. Sludge was swept from the duct. All stones were removed. Impression: - Choledocholithiasis was found. Complete removal was accomplished by biliary sphincterotomy and balloon extraction. - One stent was removed from the biliary tree. - A biliary sphincterotomy was performed. - The biliary tree was swept. Procedure Code(s): --- Professional --- 84365, Endoscopic retrograde cholangiopancreatography (ERCP); with removal of foreign body(s) or stent(s) from biliary/pancreatic duct(s) 02749, Endoscopic retrograde cholangiopancreatography (ERCP); with removal of calculi/debris from biliary/pancreatic duct(s) 33127, Endoscopic retrograde cholangiopancreatography (ERCP); with sphincterotomy/papillotomy 45285, 26, Endoscopic catheterization of the biliary ductal system, radiological supervision and interpretation CPT copyright 2021 [employer]. All rights reserved. The codes documented in this report are preliminary and upon bottom pounder cement shoes review may be revised to meet current compliance requirements. Yevgeniy Sarah DO 05/15/2025 12:43:18 PM This report has been signed electronically. Number of Addenda: 0 Note Initiated On: 05/15/2025 10:58 AM
--- NOTE | 2025-05-15 12:54 | PCM.POST.ANE ---
Anesthesia: Postop Eval I Current Vital Signs Temperature: 97.1 F Pulse Rate: 71 Blood Pressure: 98/68 Respiratory Rate: 16 Pulse Ox: 95 Oxygen Delivery Method: Room Air Assessment Airway patent: Yes Spontaneous unlabored respirations: Yes Mental status: Asleep nausea: No Vomiting: No Anesthesia Complication: No Fluid Hydration Crystalloid volume administer (ml): 800 Total IV fluid infused: 800 Progress Note Anesthesia document: Postop Eval 1 completed: Yes
--- NOTE | 2025-05-15 13:35 | PCM.POSTANE2 ---
Anesthesia Postop Eval I Sum Postop Eval Completion status Anesthesia document: Postop Eval 1 completed: Yes Anesthesia Postop Eval I Summary Anesthesia Postop Eval I Summary: Anesthesia Postop Eval I: Assessment Summary Airway patent Yes 05/15/25 12:55 [email or web address] Spontaneous unlabored Yes 05/15/25 12:55 [email or web address] respirations Mental status Asleep 05/15/25 12:55 [email or web address] nausea No 05/15/25 12:55 [email or web address] Vomiting No 05/15/25 12:55 [email or web address] Anesthesia Postop Eval I: Fluid Summary Crystalloid volume administer 800 05/15/25 12:55 [email or web address] (ml) Colloids volume administered ( ml) Blood Product volume administered (ml) Total IV fluid infused 800 05/15/25 12:55 [email or web address] Anesthesia Postop Eval I: Summary Notes Anesthesia Complication No 05/15/25 12:55 [email or web address] Anesthesia Complication Comment: Post-operative progress note Anesthesia: Postop Eval II Evaluation Mental status: Awake Pain Level: 0 nausea: No Vomiting: No Complications Anesthesia Complication: No
== END 2025-05-15 13:41 | disposition home or self-care (01) ==
LOC: EN 10:31 → AC 10:32
PROVIDERS: Visit Provider Internal Medicine Gastroenterology
PROC: (CPT 43260; principal; 2025-05-15 11:10)
DX: Z46.59 Encounter for fitting and adjustment of other gastrointestinal appliance and device (principal); K80.50 Calculus of bile duct without cholangitis or cholecystitis without obstruction; Z90.49 Acquired absence of other specified parts of digestive tract; K21.9 Gastro-esophageal reflux disease without esophagitis
CPT/HCPCS: 43262; 43264; 43275; 74330; 76000; 88108; 88305; 88313

== ENCOUNTER 2025-06-04 06:24 | Day surgery (SDC) | payer OTHER, SELFPAY ==
--- NOTE | 2025-05-31 19:45 | PAT.ANESEVAL ---
Pre-Assessment Diagnosis/Proposed Procedure Planned Operative Procedure(s): COLONOSCOPY Anesthesia History Anesthesia History - senior j2ee developer: Anesthesia History - senior j2ee developer Hx Hospitalization Yes: gallbladder 05/31/25 10:33 Any Problems With Anesthesia Yes: ponv 05/31/25 10:33 Cholinesterase deficiency No 05/31/25 10:33 You/Your Family Experience No 05/31/25 10:33 fever (hyperthermia) with Relationship Recent Exposure to Contagious No 04/04/25 12:47 Disease Does patient have nerve No 05/31/25 10:33 stimulator Patient instructed to have device shut off --Does patient have Pacemaker or ICD? When Was Last Pacemaker Check QUESTION #4 FULL TEXT: You/Your Family Experience fever (hyperthermia) with Anesthesia Last Oral Intake Last Oral intake: Last Oral Intake NPO since Meds taken in AM with sips of water? Meds patient instructed to take am of surgery PONV PONV - senior j2ee developer: PONV - senior j2ee developer Female No 05/31/25 10:33 HX of Motion Sickness Yes 05/31/25 10:33 HX of N/V After Surgery Yes 05/31/25 10:33 Non-Smoker Yes 05/31/25 10:33 Duration of Surgery greater No 05/31/25 10:33 than 60 minutes Number of Risk Factors 3 05/31/25 10:33 PONV Score Moderate Risk 05/31/25 10:33 Height & Weight Height & Weight: Anesthesia: Height & Weight Height 5 ft 8 in 04/13/25 12:43 Respiratory Assessment Respiratory Assessment - senior j2ee developer: Respiratory Tract Infection Hx - senior j2ee developer Hx Respiratory Tract Infection No 05/31/25 10:33 STOP Sleep Apnea STOP Sleep Apnea - senior j2ee developer: STOP Sleep Apnea - senior j2ee developer Hx Hypertension No 05/31/25 10:33 Hx Sleep Apnea No 05/31/25 10:33 CPAP BIPAP Do you snore loudly (louder No 05/31/25 10:33 than talking or can be heard Do you often feel tired/ No 05/31/25 10:33 fatigued/ sleepy during daytime? Has anyone observed you stop No 05/31/25 10:33 breathing during sleep? STOP Results Negative 05/31/25 10:33 QUESTION #5 FULL TEXT : Do you snore loudly (louder than talking or can be heard through closed doors)? 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 Specify any problems Hx of Preganancy in last 3 N/A 05/31/25 10:33 Months Nurse Filling Out Transfusion VCHRISTIN 05/31/25 10:33 & Questions: Date: 05/31/25 05/31/25 10:33 Time: 10:34 05/31/25 10:33 Patient unable to answer at this time (ie. confused, unrespo /Reproduction History /Reproductive History - senior j2ee developer: /Reproductive Hx- senior j2ee developer Hx Now Gestational Age (in weeks): EDC: Hx Hx Para Hx Section SAB No 03/29/25 09:18 Does the father of the baby or his family experience fever w Father of the baby Malignant Hypertension history comment PFSH Medical History Wears glasses Gallstones Wears glasses Fatty liver Heartburn Gastric reflux Non-smoker Nausea Abdominal pain GERD (gastroesophageal reflux disease) Home Medications ?Medication ?Instructions ?Recorded ?Last Taken ?Type omeprazole 40 mg capsule,delayed 40 mg PO QDAY PRN GERD 05/31/25 Unknown History release Allergy/AdvReac Type Severity Reaction Status Date / Time No Known Allergies Allergy Verified 05/31/25 10:30 Family History Mother Arthritis Father Diabetes Heart disease Respiratory disease CVA (cerebral vascular accident) Brother Bowel disease Kidney disease Grandmother Diabetes Sister Thyroid disorder Surgical History (Updated 05/31/25 @ 10:33 by Judi Antunez) Hx of surgical procedure History of ERCP History of incisional hernia repair S/P laparoscopic cholecystectomy History of wisdom tooth extraction (~06/21/94) Hx of LASIK History of ERCP (03/16/25) Social History Smoking Status: Never smoker alcohol intake: never substance use type: does not use Audit: Pertinent Findings Pertinent Findings EKG Perinent findings: 03/16/2025. Normal sinus rhythm with sinus arrhythmia Recommendation Anesthesia Recommendation Anesthesia recommendation: OPTIMIZED for anesthesia
[2025-06-04] VITALS (7 sets, daily range): BP systolic 97–116; BP diastolic 62–87; PULSE 64–80; RESP 16; TEMP 36.1–36.5; O2SAT 93–98; BMI 34.3
--- OUTSIDE RECORDS SUMMARY | 2025-06-04 06:26 | XMS RPT_ITS | CCD ---
Author Organization [facility] Care Team Providers Care Electronic Operator Name Role Phone Care Physician, No Primary Primary Care Physicia n Unavailable Dr. Lucretia Bear DO Emergency Department Physi alexsander Reji BROOKS, Dr. Landry Cox Admitting Physician Italo BROOKS, Dr. Shi Attending Physician Italo BROOKS, Dr. Shi Nurse Practitioner Keara SIMON, Dr. Vuong Nurse Practitioner Peter ELECTROMECHANICAL TECHNOLOGIST-CKarlee Nurse Practitioner Librado ELECTROMECHANICAL TECHNOLOGIST-C, Apolonia Nurse Practitioner Shira Dawson Nurse Practitioner Dr. Yevgeniy Sarah DO Attending Physician Care Physician, No Primary Referring Provider Un available Cedrick BROOKS, Dr. Leiva Attending Physician Dr. Jose Guadalupe Puckett MD Referring Provider Dr. Abbie Philip MD Referring Provider Dr. Abbie Philip MD Nurse Practitioner Dr. Rich Ramirez MD Emergency Department Phys ician Dr. Abbie Philip MD Admitting Physician Yamini Mathew PA-C Attending Physician Mansoor BROOKS, Dr. Kemp Attending Physician Fredy BROOKS, Dr. Mateo Figueroa Attending Physician Care Physician, No Primary Primary Care Physicia n Unavailable Dr. Lucretia Bear DO Emergency Department Physi alexsander Reji BROOKS, Dr. Landry Cox Admitting Physician Italo BROOKS, Dr. Shi Attending Physician Italo BROOKS, Dr. Shi Nurse Practitioner Keara SIMON, Dr. Vuong Nurse Practitioner Peter ELECTROMECHANICAL TECHNOLOGIST-C, Karlee Nurse Practitioner Librado ELECTROMECHANICAL TECHNOLOGIST-C, Apolonia Nurse Practitioner Shira Dawson Nurse Practitioner Italo BROOKS, Dr. Shi Referring Provider Keara SIMON, Dr. Vuong Attending Physician Care Physician, No Primary Referring Provider Un available Cedrick BROOKS, Dr. Leiva Attending Physician Cedrick BROOKS, Dr. Leiva Referring Provider Cedrick BROOKS, Dr. Leiva Nurse Practitioner James BROOKS, Dr. Villanueva Emergency Department Phys ician Cedrick BROOKS, Dr. Leiva Admitting Physician Yamini Mathew PA-C Attending Physician Mansoor BROOKS, Dr. Kemp Attending Physician Fredy BROOKS, Dr. Mateo Figueroa Attending Physician Shira Dawson Attending Physician [phone] Abbie Philip Attending Unavailable Care Physician, No Primary Referring Unava ilable Care Physician, No Primary Primary Care Unava ilable Abbie Philip Consulting Unavailable Abbie Philip Admitting Unavailable Care Physician, No Primary Primary Care Unava ilable Yamini Garcia Attending Unavailable Justo Max Attending Unavailable Mateo Daniel Attending Unavailable Abbie Philip Attending Unavailable Care Physician, No Primary Primary Care Unava ilable Care Physician, No Primary Referring Unava ilable Care Physician, No Primary Primary Care Unava ilable Care Physician, No Primary Referring Unava ilable Shira Alex Attending Unavailable Abbie Philip Attending Unavailable Robotham, Abbie Referring Unavailable Care Physician, No Primary Primary Care Unava ilable Robotham, Abbie Admitting Unavailable Robotham, Abbie Attending Unavailable Care Physician, No Primary Primary Care Unava ilable Jose Guadalupe Puckett Consulting Unavailable Italo, Jose Guadalupe Attending Unavailable Care Physician, No Primary Primary Care Unava ilable KotsonisBlakeLandry F Admitting Unavailable Friend, Yevgeniy Consulting Unavailable Peter, Karlee Consulting Unavailable Apolonia Pavon Consulting Unavailable Shira Alex Consulting Unavailable Care Physician, No Primary Primary Care Unava ilable Friend, Yevgeniy Attending Unavailable Robotham, Abbie Attending Unavailable Care Physician, No Primary Primary Care Unava ilable Italo, Jose Guadalupe Attending Unavailable Italo, Jose Guadalupe Consulting Unavailable Care Physician, No Primary Primary Care Unava ilable Reji, Landry F Admitting Unavailable Friend, Yevgeniy Consulting Unavailable Peter, Karlee Consulting Unavailable Librado, Apolonia Consulting Unavailable Eladionasrosalio, Shira Consulting Unavailable Italo, Jose Guadalupe Referring Unavailable Friend, Yevgeniy Attending Unavailable Robotham, Abbie Attending Unavailable Robotham, Abbie Referring Unavailable Robotham, Abbie Consulting Unavailable Care Physician, No Primary Primary Care Unava ilable Robotham, Abbie Consulting Unavailable Robotham, Abbie Attending Unavailable Care Physician, No Primary Primary Care Unava ilable Robotham, Abbie Admitting Unavailable Robotham, Abbie Consulting Unavailable Robotham, Abbie Attending Unavailable Care Physician, No Primary Primary Care Unava ilable Medications Current Medications Medication Drug Class(es) Dates Sig (Normalized) Sig (Original) omeprazole 40 mg delayed release oral capsule (3 sources) Proton Pump Inhibitor Start: 03-23-2025 take 1 capsule by mouth once daily Omeprazole 40 mg capsule,delayed release(DR/EC) Active 40 mg PO daily 17 09March 22, 2025 11:00pm swallow whole; do not crush, chew, dissolve, cut, break Complies with drug therapy oxyCODONE hydrochloride 5 mg oral capsule (2 sources) Opioid Agonist Start: 04-04-2025 End: 04-23-2025 take 1 capsule by mouth every six hours as needed for pain Oxycodone 5 mg capsule Discontinued 5 mg PO EVERY 6 HOURS as needed for pain April 04, 2025 April 23, 2025 1:14pm Postoperative pain Other acute postprocedural pain Completed/Discontinued Medications Medication Drug Class(es) Dates Sig (Normalized) Sig (Original) amoxicillin 875 mg / clavulanate 125 mg oral tablet (5 sources) Penicillin-class Antibacterial Start: 03-18-2025 End: 03-23-2025 Amoxicillin-Pot Clavulanate 875-125 mg tablet Discontinued 1 {tbl} PO TWICE A DAY 10 0 March 17, 2025 11:00pm March 23, 2025 7:51am Start: 03-18-2025 docusate sodium 50 mg / sennosides, custodial 8.6 mg oral tablet (5 sources) Start: 03-18-2025 End: 03-23-2025 Sennosides-Docusate Sodium (Stimulant Laxative Plus) 8.6-50 mg Tablet Discontinued 2 {tbl} PO TWICE DAILY NEEDED as needed for Constipation 0 March 17, 2025 11:00pm March 23, 2025 7:51am Start: 03-18-2025 Problems Problem Classification Problem Date Documented Da te Episodic/Chronic Abdominal hernia (5 sources) Intestinal obstruction; Translations: [Incisional hernia with obstruction, without gangrene] Onset: 5 04-08-2025 Episodic Abdominal pain (4 sources) Abdominal pain; Translations: [Unspecified abdominal pain] Onset: 5 03-23-2025 Episodic Biliary tract disease (15 sources) Biliary calculus; Translations: [Calculus of gallbladder with acute and chronic cholecystitis without obstruction] Onset: 5 03-16-2025 Episodic Esophageal disorders (4 sources) Gastroesophageal reflux disease; Translations: [Gastro-esophageal reflux disease without esophagitis] 03-23-2025 Chronic Intestinal obstruction without hernia (5 sources) Small bowel obstruction; Translations: [Unspecified intestinal obstruction, unspecified as to partial versus complete obstruction] Onset: 5 04-08-2025 Episodic Nausea and vomiting (9 sources) Nausea; Translations: [Nausea] Onset: 5 03-23-2025 Episodic Other gastrointestinal disorders (2 sources) Personal history of other diseases of the digestive system; Translations: [Personal history of other diseases of the digestive system] Onset: Episodic Other screening for suspected conditions (not mental disorders or infectious disease) (2 sources) Patient encounter status; Translations: [Encounter for screening for malignant neoplasm of colon] 04-24-2025 Episodic Other upper respiratory disease (1 source) Seasonal allergy; Translations: [Other seasonal allergic rhinitis] 04-25-2025 Chronic Residual codes; unclassified (6 sources) History of hernia repair; Translations: [Other specified postprocedural states] 04-08-2025 Episodic Comment on above: 04/07 04/07 & take back fo r Lap MYRIAM 04/09 Residual codes; unclassified (2 sources) Acquired absence of other specified parts of digestive tract; Translations: [Acquired absence of other specified parts of digestive tract] Onset: 5 Episodic Residual codes; unclassified (2 sources) Other specified postprocedural states; Translations: [Other specified postprocedural states] Onset: 5 Episodic Results Test Name Value Interpretation Reference Range Facility Gastroenterology Visit Repor ton 04-25-2025 Gastroenterology Visit Report [facility] [address] [place] [address] OFFICE VISIT Date of Service: 04/25/25 MR#: [id number] Acct: [id number] Name: ALONDRA ARITA Rep #: [id number] : 1975 Provider: MERE Robles Age/Sex: 49/M Location: [facility] Status: Signed Intake Vital Signs 04/13/25 12:43 Height 5 ft 8 in Intake Visit Reasons: DISCUSS AND SCHEDULE STENT REMOVAL Chief Complaint: 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 [employer] Services Required: No Accompanied by: Self Is patient in pain?: No Allergies No Known Allergies Allergy (Verified 04/25/25 09:07) Medications ???Medication ???Instructions ???Recorded ???Confirmed ???Type omeprazole 40 mg capsule,delayed 40 mg PO QDAY #30 caps 03/23/25 Rx release PFSH Medical History Gallstones Wears glasses Fatty liver Heartburn Gastric reflux Non-smoker Nausea Abdominal pain GERD (gastroesophageal reflux disease) Surgical History History of incisional hernia repair S/P laparoscopic cholecystectomy History of wisdom tooth extraction ( 06/21/94) Hx of LASIK History of ERCP (03/16/25) Family History Mother Arthritis Father Diabetes Heart disease Respiratory disease CVA (cerebral vascular accident) Brother Bowel disease Kidney disease Grandmother Diabetes Sister Thyroid disorder Social History Smoking Status: Never smoker alcohol intake: never substance use type: does not use HPI HPI Chief Complaint: Status post ERCP Details: ALONDRA ARITA, is a 49 M who presents to the office today for hospital follow-up. [facility] admission 03/16/25-03/18/2025 after presentation to the ED with upper abdominal pain. Right upper quadrant ultrasound with no cholecystitis but cholelithiasis and dilation of the CBD. Admitted for ERCP ERCP 03/16/2025 The entire main bile duct was moderately dilated, with a stone causing an obstruction. - Choledocholithiasis was found. Partial removal was accomplished with biliary sphincterotomy; a stent was inserted. - A biliary sphincterotomy was performed. - The biliary tree was swept. - One temporary stent was placed into the common bile duct. Cholecystectomy 04/04/2025 complicated by incisional hernia and prolonged postop ileus. OV 04/25/25 -no further abd pain -bowels are almost back to normal -here to be scheduled for ERCP with stent removal ROS Const Constitutional: No fatigue, fever(s) or weight change ENT ENT: No difficulty swallowing Gastro GI: Positive for abdominal pain and heartburn; No belching, bloating, change in bowel habits, change in stool character, coffee ground emesis, constipation, cramping, diarrhea, difficulty swallowing, feeling full early, excessive flatus, incontinent of stools, Vomiting blood/hematemesis, Blood in stool, loose stools, Black,tarry stools, nausea/dyspepsia, pain with swallowing, vomiting or other Musc Musculoskeletal: No joint pain Skin Skin: No yellowing of the eye or itchy eyes Psych Psychiatric: No anxiety and No depression Endo Endocrine: No fatigue or weight change Aller/Imm Allergy/Immunologic: No itchy eyes Juan Antonio/Lymp Hematologic/Lymphatic: No easy bleeding or easy bruising Exam Const General: cooperative, healthy appearing and comfortable Nutritional Appearance: average body habitus [place] Head: normal to inspection Eyes General: appearance normal, both eyes and all related structures Neck Neck: normal visual inspection Chest Chest palpation inspection: normal inspection of the chest Resp Effort Inspection: normal respiratory effort GI Inspection: normal to inspection Assessment and Plan Assessment and Plan (1) S/P laparoscopic cholecystectomy: Status: Acute Comment: Robotic 04/04/2025 (2) History of incisional hernia repair: Status: Acute Comment: 04/07 take back for Lap MYRIAM 04/09 (3) Cholelithiasis: Status: Acute Plan: Alondra is a healthy 49-year-old male patient with recent hospitalization due to cholelithiasis. Patient underwent ERCP03/16/2025 and was found to have a stone causing obstruction in the main bile duct. Partial removal was accomplished with biliary sphincterotomy and stent placement. He was discharged with plan for outpatient cholecystectomy which he underwent 04/04/2025. This was complicated by an incisional hernia which caused obstruction and postop ileus which required a 9-day hospital stay. Patient doing well today with no further abdominal pain. He reports his bowels are almost back to his baseline. He is here today to be scheduled for ERCP with stent removal. I (more content not included)... Normal [facility] Surgery Visit Reporton 04-24 Surgery Visit Report [facility] [address] [place] [address] OFFICE VISIT Date of Service: 04/23/25 MR#: [id number] Acct: [id number] Name: ALONDRA ARITA Rep #: [id number] : 1975 Provider: Dr. Abbie gould MD Age/Sex: 49/M Location: [facility] Status: Signed Intake Vital Signs 04/13/25 12:43 Height 5 ft 8 in Intake Visit Reasons: CYNDIE DOS 04/04 Chief Complaint: f/u lap cyndie/hernia/lysis of adhesions Allergies No Known Allergies Allergy (Verified 04/23/25 13:14) Medications ???Medication ???Instructions ???Recorded ???Confirmed ???Type omeprazole 40 mg capsule,delayed 40 mg PO QDAY #30 caps 03/23/25 Rx release PFSH Medical History (Updated 04/24/25 @ 09:[address] Abbie Philip MD) Wears glasses Fatty liver Heartburn Gastric reflux Non-smoker Nausea Abdominal pain GERD (gastroesophageal reflux disease) Surgical History (Updated 04/24/25 @ 09:[address] Abbie Philip MD) History of incisional hernia repair S/P laparoscopic cholecystectomy History of wisdom tooth extraction ( 06/21/94) Hx of LASIK History of ERCP (03/16/25) Social History Smoking Status: Never smoker alcohol intake: never substance use type: does not use HPI HPI HPI: 49-year-old male presents status post robotic cholecystectomy with hydrops of the gallbladder status post ERCP and sphincterotomy and then subsequent hospitalization for incisional hernia, mesh placement, takeback for lysis of adhesions and prolonged postop ileus. Patient is doing well currently. Patient is tolerating diet and having bowel function patient denies abdominal pain not having nausea or vomiting. Patient's incisions are healing. Patient has never had a colonoscopy. Patient has bowel movements daily and and only occasionally has some blood with wiping. Patient denies any family history of colon cancer. Patient states during COVID he did have 3 months where he did have quite a bit of blood per rectum but that did resolve on its own. Patient not see anyone for this as it resolved on its own. Now he only occasionally has bright red blood with maybe harder stools or needing to wipe a lot. Exam Const General: cooperative, healthy appearing, comfortable and no acute distress [place] Head: normocephalic and atraumatic Neck Neck: supple Resp Effort Inspection: normal respiratory effort Cardio Rate: regular rate GI Inspection: non-distended and incision (Incisions healing well) Palpation: soft and nontender Skin General: no rashes or lesions noted Neuro General: CN's II-XI intact bilaterally Extrem General: normal to inspection Psych Mental Status: mental status grossly normal Attitude: cooperative Assessment and Plan Assessment and Plan (1) S/P laparoscopic cholecystectomy: Status: Acute Comment: Robotic 04/04/2025 (2) History of incisional hernia repair: Status: Acute Comment: 04/07 take back for Lap MYRIAM 04/09 (3) Screening for colon cancer: Status: Acute Plan Patient's incisions are healing well. Continue gradually increasing activity with the weight restrictions until 4-5 weeks. I have discussed the above with the patient. I have offered the patient colonoscopy for evaluation. I have explained the risks/benefits of the procedure and described the procedure. I have discussed the risks with the patient, including but not limited to: infection, bleeding, perforation of the GI tract requiring emergency surgery, inability to complete the procedure, injury to any internal organs, complications of anesthesia, etc. - the patient understands and agrees to proceed. I have answered all the patient's questions to the patient's satisfaction and the patient has no further questions. The patient has been given instructions for the colon cleansing preparation. 1 day clears MiraLAX Dulcolax prep Abbie Philip M.D. Pager: [phone] [facility] [address] [place] [address] [address] [place] [address] Office: [phone] Coding Level of Care Code Global Post Op Diagnoses S/P laparoscopic cholecystectomy Z90.49 History of incisional hernia repair Z98.890; Z87.19 Screening for colon cancer Z12.11 04/24/25 1239 Date [facility] Signature: Date (if applicable) CC: Normal [facility] Abdomen Single Viewon 2024 Abdomen Single View [facility] Imaging Services [address] [place] [id number] Abdomen Single View MR#: [id number] Acct: [id number] Name: ALONDRA ARITA Rep #: [id number] : 1975 M 49 From: Kirill Lea MD PCP: Care Physician,No Primary Status: ADM IN Study: Abdomen Single View Date of Exam: 04/13/25 Exam# [id number] Ordering Dr: Abbie Philip MD PROCEDURE: ABDOMEN SINGLE VIEW 04/13/2025 REASON FOR EXAM: ILEUS TECHNIQUE: Procedure Code: RADABD Modality: DX Procedure: ABDOMEN SINGLE VIEW COMPARISON: Yesterday FINDINGS: Bowel gas: Persistent borderline distended air-filled loops in the mid abdomen consistent with focal ileus. No significant change since the previous study is noted. There is no evidence of oral contrast in the colon which was from a CT scan from yesterday as well. The presence of the contrast within the sigmoid colon and rectum suggests there is no obstruction. Calcifications: No suspicious calcifications Bones: Bony structures are unremarkable Other: Biliary stent noted RAD/Abdomen Single View IMPRESSION: Persistent focal ileus noted in the central mid abdomen Presence of oral contrast in the colon, particularly the sigmoid colon and rectum suggests there is no obstruction present No free air Reading Location: [facility] CC: Dr. Abbie Philip MD; No Primary Care Physician Life Sciences Teacher: Signed Normal [facility] Absolute lymphocyte countOrd ered By: Justo Max on 04-13-2025 Lymphocytes Auto (Unsp spec) [#/Vol] 1.83 10*3/uL 0.83-4.51 [facility] Absolute neutrophil countOrd ered By: Justo Max on 04-13-2025 Neutrophils (Bld) [#/Vol] 4.6 10*3/uL 2.0-7.7 [facility] Anion gap in Serum or Plasma Ordered By: Justo Max on 04-13-2025 Anion gap [Moles/Vol] 16 mmol/L High 5-15 [facility] Automated blood erythrocyte countOrdered By: Justo Max on 04-13-2025 RBC (Bld) [#/Vol] 4.86 10*6/uL Normal 4.6-6.2 [facility] Comment on above: Performed By: #### L 501.2300, L100.0100, L500.2500, L501.5200 #### [facility] [address] [facility] [place], [place], [id number] Automated blood hematocrit ( percentage)Ordered By: Justo Max on 04-13-2025 Hematocrit (Bld) [Volume fraction] 39.4 % Low 40-54 [facility] Comment on above: Performed By: #### L 501.2300, L100.0100, L500.2500, L501.5200 #### [facility] [address] [place], [address] Automated lymphocyte count a s percentage of total leukocytesOrdered By: Justo Max on 04-13-2025 Lymphocytes/100 WBC Auto (Unsp spec) 25.3 % [facility] BUN/creatinine ratioOrdered By: Justo Max on 04-13-2025 Urea nitrogen/Creatinine [Mass ratio] 11.0 mg/mg 04-09 [facility] Basic Metabolic Profile (BMP )on 04-13-2025 BUN/CRE 11.0 RATIO Normal 04-09 [facility] Comment on above: Performed By: #### L 501.2300, L100.0100, L500.2500, L501.5200 #### [facility] [address] [place], [address] ECRCL 122.77 ml/min Normal 50-250 [facility] Comment on above: Performed By: #### L 501.2300, L100.0100, L500.2500, L501.5200 #### [facility] [address] [place], [address] GAP 16 High 5-15 [facility] Comment on above: Performed By: #### L 501.2300, L100.0100, L500.2500, L501.5200 #### [facility] [address] [place], [address] Potassium [Moles/Vol] 3.4 mmol/L Normal 3.3-5.1 [facility] Comment on above: Performed By: #### L 501.2300, L100.0100, L500.2500, L501.5200 #### [facility] [address] [place], [address] Basophil percentageOrdered B y: Justo Max on 04-13-2025 Basophils/100 WBC (Bld) 0.4 % Normal 0-[address] [facility] Comment on above: Performed By: #### L 501.2300, L100.0100, L500.2500, L501.5200 #### [facility] [address] [place], [address] CBC W/Diff, Automatedon 03-22 Absolute Lymph 1.83 X10 3/uL Normal 0.83-4.51 [facility] Comment on above: Performed By: #### L 501.2300, L100.0100, L500.2500, L501.5200 #### [facility] [address] [place], [address] Absolute Neut 4.6 X10 3/uL Normal 2.0-7.7 [facility] Comment on above: Performed By: #### L 501.2300, L100.0100, L500.2500, L501.5200 #### [facility] [address] [place], [address] IG% 1.400 High 0.0-0.9 [facility] Comment on above: Result Comment: IG% - Immature Granulocytes (promyelocytes, myelocytes and metamyelocytes) > 1% indicates that a LEFT SHIFT is Present. Performed By: #### L 501.2300, L100.0100, L500.2500, L501.5200 #### [facility] [address] [place], [address] Lymphocytes/100 WBC (Bld) 25.3 % Normal 19-41 [facility] Comment on above: Performed By: #### L 501.2300, L100.0100, L500.2500, L501.5200 #### [facility] [address] [place], [address] Nucleated RBC (Bld) [#/Vol] 0 10*3/uL Normal 0-5 [facility] Comment on above: Performed By: #### L 501.2300, L100.0100, L500.2500, L501.5200 #### [facility] [address] [place], [address] RDW SD 37.4 fl Normal 35.1-43.9 [facility] Comment on above: Performed By: #### L 501.2300, L100.0100, L500.2500, L501.5200 #### [facility] [address] [place], [address] Carbon dioxide, total [Moles /volume] in Central venous bloodOrdered By: Justo Max on 04-13-2025 CO2 [Moles/Vol] 22.6 mmol/L Normal 21.0-32.0 [facility] Comment on above: Performed By: #### L 501.2300, L100.0100, L500.2500, L501.5200 #### [facility] [address] [place], [address] Chloride assayOrdered By: Chely Max on 04-13-2025 Chloride [Moles/Vol] 102 mmol/L Normal 98-108 [facility] Comment on above: Performed By: #### L 501.2300, L100.0100, L500.2500, L501.5200 #### [facility] [address] [place], [address] Eosinophil percentageOrdered By: Justo Max on 04-13-2025 Eosinophils/100 WBC (Bld) 4.2 % Normal 0-5 [facility] Comment on above: Performed By: #### L 501.2300, L100.0100, L500.2500, L501.5200 #### [facility] [address] [place], [address] Erythrocyte distribution wid th ratioOrdered By: Justo Max on 10-24-2025 Erythrocyte distribution width (RBC) [Ratio] 12.8 % Normal 11.6-14.6 [facility] Comment on above: Performed By: #### L 501.2300, L100.0100, L500.2500, L501.5200 #### [facility] [address] [place], [address] Erythrocyte distribution wid th standard deviationOrdered By: Justo Max on 04-13-2025 Erythrocyte distribution width (RBC) [Ratio] 37.4 fl 35.1-43.9 [facility] Glomerular filtration rate ( GFR) estimation/1.73 sq m using serum, plasma, or whole bOrdered By: Justo Max on 04-13-2025 GFR/1.73 sq M.predicted among non-blacks MDRD (S/P/Bld) [Vol rate/Area] 107 mL/min/{1.73_m2} Normal >60 [facility] Comment on above: mL/min/1.73m2 CKD-EP I Creatinine Equation (2020) Result Comment: mL/m in/1.73m2 CKD-EPI Creatinine Equation (2020) Performed By: #### L 501.2300, L100.0100, L500.2500, L501.5200 #### [facility] [address] [place], [address] Hemoglobin measurementOrdere d By: Justo Max on 04-13-2025 Hemoglobin (Bld) [Mass/Vol] 13.5 g/dL Normal 13.0-16.5 [facility] Comment on above: Performed By: #### L 501.2300, L100.0100, L500.2500, L501.5200 #### [facility] [address] [place], [address] Immature granulocytes/100 WB C Auto (Bld)Ordered By: Justo Max on 04-13-2025 Immature granulocytes/100 WBC (Bld) 1.400 % High 0.0-0.9 [facility] Comment on above: IG% - Immature Granu locytes (promyelocytes, myelocytes and metamyelocytes) > 1% indicates that a LEFT SHIFT is Present. MCV (mean corpuscular volume ) determinationOrdered By: Justo Max on 04-13-2025 MCV (RBC) [Entitic vol] 81.1 fL Normal 80-[address] [facility] Comment on above: Performed By: #### L 501.2300, L100.0100, L500.2500, L501.5200 #### [facility] [address] [place], [address] Magnesiumon 04-13-2025 Magnesium [Mass/Vol] 2.0 mg/dL Normal 1.5-2.2 [facility] Comment on above: Performed By: #### L 501.2300, L100.0100, L500.2500, L501.5200 #### [facility] [address] [place], [address] Magnesium measurement (mass/ volume)Ordered By: Justo Max on 04-13-2025 Magnesium (Unsp spec) [Mass/Vol] 2.0 mg/dL 1.5-2.2 [facility] Mean corpuscular hemoglobin (MCH) determinationOrdered By: Jsuto Max on 04-13-2025 MCH (RBC) [Entitic mass] 27.8 pg Normal 27.0-32.0 [facility] Comment on above: Performed By: #### L 501.2300, L100.0100, L500.2500, L501.5200 #### [facility] [address] [place], [address] Mean corpuscular hemoglobin concentration (MCHC) determinationOrdered By: Justo Max on 04-13-2025 MCHC (RBC) [Mass/Vol] 34.3 g/dL Normal 32-36 [facility] Comment on above: Performed By: #### L 501.2300, L100.0100, L500.2500, L501.5200 #### [facility] [address] [place], [address] Mean platelet volume determi nationOrdered By: Justo Max on 04-13-2025 Platelet mean volume (Bld) [Entitic vol] 9.9 fL Normal 6.2-12.0 [facility] Comment on above: Performed By: #### L 501.2300, L100.0100, L500.2500, L501.5200 #### [facility] [address] [place], [address] Monocyte percentageOrdered B y: Justo Max on 04-13-2025 Monocytes/100 WBC (Bld) 5.7 % Normal 0-[address] [facility] Comment on above: Performed By: #### L 501.2300, L100.0100, L500.2500, L501.5200 #### [facility] [address] [place], [address] Neutrophil percentageOrdered By: Justo Max on 04-13-2025 Neutrophils/100 WBC (Bld) 63.0 % Normal 47-70 [facility] Comment on above: Performed By: #### L 501.2300, L100.0100, L500.2500, L501.5200 #### [facility] [address] [place], [address] Nucleated red blood cell per centageOrdered By: Justo Max on 04-13-2025 Nucleated RBC/100 WBC (Bld) [Ratio] 0 % 0-5 [facility] Phosphoruson 04-13-2025 Phosphate [Mass/Vol] 3.3 mg/dL Normal 2.7-4.5 [facility] Comment on above: Performed By: #### L 501.2300, L100.0100, L500.2500, L501.5200 #### [facility] [address] [place], [address] Platelet countOrdered By: Chely Max on 04-13-2025 Platelets (Bld) [#/Vol] 274 10*3/uL Normal 150-450 [facility] Comment on above: Performed By: #### L 501.2300, L100.0100, L500.2500, L501.5200 #### [facility] [address] [place], [address] Potassium measurement (mass/ volume)Ordered By: Justo Max on 04-13-2025 Potassium (Unsp spec) [Mass/Vol] 3.4 mmol/L 3.3-5.1 [facility] Serum creatinine measurement (mass/volume)Ordered By: Justo Max on 04-13-2025 Creatinine [Mass/Vol] 0.83 mg/dL Normal 0.70-1.20 [facility] Comment on above: Performed By: #### L 501.2300, L100.0100, L500.2500, L501.5200 #### [facility] [address] [place], [address] Serum glucose measurement (m ass/volume)Ordered By: Justo Max on 04-13-2025 Glucose [Mass/Vol] 77 mg/dL Normal 70-99 [facility] Comment on above: Performed By: #### L 501.2300, L100.0100, L500.2500, L501.5200 #### [facility] [address] [place], [address] Serum or plasma calcium carlos urement (mass/volume)Ordered By: Justo Max on 04-13-2025 Calcium [Mass/Vol] 8.8 mg/dL Normal 7.6-11.0 [facility] Comment on above: Performed By: #### L 501.2300, L100.0100, L500.2500, L501.5200 #### [facility] [address] [place], [address] Serum or plasma urea nitroge n measurement (mass/volume)Ordered By: Justo Max on 04-13-2025 Urea nitrogen [Mass/Vol] 9 mg/dL Normal 4-19 [facility] Comment on above: Performed By: #### L 501.2300, L100.0100, L500.2500, L501.5200 #### [facility] [address] [place], [address] Sodium levelOrdered By: Johnson Max on 04-13-2025 Sodium [Moles/Vol] 141 mmol/L Normal 133-145 [facility] Comment on above: Performed By: #### L 501.2300, L100.0100, L500.2500, L501.5200 #### [facility] [address] [place], [address] Surgical pathology reportOrd ered By: Landy Alvarado on 04-13-2025 Surgical pathology study [facility] White blood cell (WBC) count Ordered By: Justo Max on 04-13-2025 WBC (Bld) [#/Vol] 7.2 10*3/uL Normal 4.4-11.0 [facility] Comment on above: Performed By: #### L 501.2300, L100.0100, L500.2500, L501.5200 #### [facility] [address] [place], [address] Abd Inc Decub and/or Erecton 04-12-2025 Abd Inc Decub and/or Erect [facility] Imaging Services [address] [place] [address] Abd Inc Decub and/or Erect MR#: [id number] Acct: [id number] Name: ALONDRA ARITA Rep #: [id number] : 1975 M 49 From: Lavelle White PCP: Care Physician,No Primary Status: ADM IN Study: Abd Inc Decub and/or Erect Date of Exam: 04/12 Exam# [id number] Ordering Dr: Yamini Mathew P A-C PROCEDURE: ABD INC DECUB AND/OR ERECT 04/12/2025 REASON FOR EXAM: SMALL BOWEL OBSTRUCTION TECHNIQUE: Procedure Code: RADABDMV Modality: DX Procedure: Four view abdomen INC DECUB AND/OR ERECT COMPARISON: Abdomen study of 04/11/2020. RAD/Abd Inc Decub and/or Erect IMPRESSION: No evidence of pneumoperitoneum. Common duct stent remains in place. Air and stool are seen throughout the large bowel and rectum. Dilated small bowel loops are again seen, but notably partially improved since the prior study of the day before. Findings are concerning for possible partial small bowel obstruction. No interval osseous change is seen. Reading Location: [id number] CC: VERNON Mathew; No Primary Care Physician Life Sciences Teacher: Signed Normal [facility] Abdomen WITH ORAL Cont Onlyo n 04-12-2025 Abdomen WITH ORAL Cont Only [facility] Imaging Services [address] [place] [address] Abdomen WITH ORAL Cont Only MR#: [id number] Acct: [id number] Name: ALONDRA ARITA Rep #: [id number] : 1975 M 49 From: Kirill Lea MD PCP: Care Physician,No Primary Status: ADM IN Study: Abdomen WITH ORAL Cont Only Date of Exam: 03/22 09/12 Exam# [id number] Ordering Dr: Abbie Philip MD PROCEDURE: ABDOMEN WITH ORAL CONT ONLY 04/12/2025 REASON FOR EXAM: N/V TECHNIQUE: Procedure Code: CTABDWOPO Modality: CT Procedure: ABDOMEN WITH ORAL CONT ONLY Oral contrast was also used. coronal and Sagittal reconstruction series were provided. One or more dose reduction techniques were used (e.g., Automated exposure control, adjustment of the mA and/or kV according to patient size, use of iterative reconstruction technique CONTRAST: None RADIATION DOSE SUMMARY: CTDlvol: 17.04 mGy DLP: 974.81 mGycm COMPARISON: Previous plain films FINDINGS: Noncontrast technique limits evaluation of the abdominal viscera. Lung bases: Clear Liver: Normal size. No mass. Pneumobilia noted in the left lobe. Gallbladder: Surgically absent. Biliary stent noted in the common bile duct. Spleen: Normal size. Pancreas: Normal size without evidence of mass surrounding inflammation or ductal dilation. Adrenals: Unremarkable Kidneys: No obstructive uropathy or suspicious solid renal lesion Bowel: Distended contrast filled small bowel loops predominantly in the left half of the abdomen consistent with a developing obstruction. There is no submucosal thickening or edema present, there is some subtle mesenteric twisting noted in the left lower quadrant on coronal recon images 30 through 42 which may due to adhesions from previous surgery. No clearly demonstrated transition point it is likely in the mid to distal ileum is there are non distended noncontrast containing small bowel loops noted distally. The colon is decompressed, scattered colonic diverticula noted without CT evidence of acute diverticulitis. Normal appendix is seen on coronal recon images 75 through 83 Lymph nodes: No suspicious bulky mesenteric or retroperitoneal lymphadenopathy Vasculature: The abdominal aorta and IVC are normal. Peritoneum / Retroperitoneum: No free fluid or air Bones: Mild degenerative bony changes in the lower lumbar spine CT/Abdomen WITH ORAL Cont Only IMPRESSION: Likely developing small bowel obstruction as there are distended contrast filled stomach and proximal small bowel. I suspect there are underlying adhesions from previous surgery and there is mesenteric twisting noted on coronal recon images 30 through 42. No oral contrast is noted in distal small bowel loops are within the colon Scattered colonic diverticulosis, no CT evidence of acute diverticulitis No suspicious solid organ abnormality. There has been previous removal of the gallbladder, there is a biliary stent present and pneumobilia noted in the left lobe of the liver No free intraperitoneal fluid, air, or suspicious adenopathy, normal appendix visualized Reading Location: [id number] CC: Dr. Abbie Philip MD; No Primary Care Physician Life Sciences Teacher: Signed Normal [facility] Abd Inc Decub and/or Erecton 04-11-2025 Abd Inc Decub and/or Erect [facility] Imaging Services [address] [place] [address] Abd Inc Decub and/or Erect MR#: [id number] Acct: [id number] Name: ALONDRA ARITA Rep #: [id number] : 1975 M 49 From: David quevedo MD PCP: Care Physician,No Primary Status: ADM IN Study: Abd Inc Decub and/or Erect Date of Exam: 04/11 Exam# [id number] Ordering Dr: Yamini Mathew P A-C PROCEDURE: ABD INC DECUB AND/OR ERECT 04/11/2025 REASON FOR EXAM: ABDOMINAL DISTENTION TECHNIQUE: Procedure Code: RADABDMV Modality: DX Procedure: ABD INC DECUB AND/OR ERECT COMPARISON: Prior study dated April 09, 2025. FINDINGS: Bowel gas: Persistent mildly dilated small bowel loops with air-fluid levels. Gas and fecal material seen throughout the colon. Findings suggestive of incomplete small bowel obstruction. Calcifications: No suspicious calcifications. Bones: There are degenerative changes of the spine. Other: Once again, a biliary stent is seen in the common bile duct. The previously seen nasogastric tube has been withdrawn. Atelectasis at the left lung base. RAD/Abd Inc Decub and/or Erect IMPRESSION: Improvement in the small bowel dilatation with air-fluid levels. Gas and fecal material seen throughout the colon. Reading Location: [place] [address] CC: VERNON Mathew; No Primary Care Physician Life Sciences Teacher: Signed Normal [facility] Abdomen Single Viewon 2024 Abdomen Single View [facility] Imaging Services [address] [place] [address] Abdomen Single View MR#: [id number] Acct: [id number] Name: ALONDRA ARITA Rep #: [id number] : 1975 M 49 From: Chino Elliott MD PCP: Care Physician,No Primary Status: ADM IN Study: Abdomen Single View Date of Exam: 04/11/25 Exam# [id number] Ordering Dr: Abbie Philip MD PROCEDURE: ABDOMEN SINGLE VIEW 04/11/2025 REASON FOR EXAM: EMESIS TECHNIQUE: Procedure Code: RADABD Modality: DX Procedure: ABDOMEN SINGLE VIEW COMPARISON: Earlier same day 04/11/2025, and 04/10/2025. CT 04/08/2025. FINDINGS: Persistent dilated air-filled small bowel loops grouped in the central abdomen compatible with small-bowel obstruction. No discernible free air. Rectal gas is seen. Biliary stent noted. RAD/Abdomen Single View IMPRESSION: Persistent dilated air-filled small bowel loops suggesting SBO or segmental ileus. Reading Location: [facility] CC: Dr. Abbie Philip MD; No Primary Care Physician Life Sciences Teacher: Signed Normal [facility] Abdomen Single Viewon 2024 Abdomen Single View [facility] Imaging Services [address] [facility] [address] Abdomen Single View MR#: [id number] Acct: [id number] Name: ALONDRA ARITA Rep #: [id number] : 1975 M 49 From: Lavelle White PCP: Care Physician,No Primary Status: ADM IN Study: Abdomen Single View Date of Exam: 04/10/25 Exam# [id number] Ordering Dr: Yamini Mathew PROCEDURE: ABDOMEN SINGLE VIEW 04/10/2025 REASON FOR EXAM: SMALL BOWEL OBSTRUCTION TECHNIQUE: Procedure Code: RADABD Modality: DX Procedure: Two-view supine abdomen COMPARISON: Small-bowel series of 04/09/2025. RAD/Abdomen Single View IMPRESSION: Common duct stent unchanged in position. Stable positioning of the coiled nasogastric tube. Dilation of multiple small bowel loops is again prominently seen, without clear interval improvement since the study of the day before. The remainder of the examination is unchanged. Reading Location: [address] CC: VERNON Mathew; No Primary Care Physician Life Sciences Teacher: Signed Normal [facility] Basic Metabolic Profile (BMP )on 04-09-2025 BUN/CRE 18.9 RATIO Normal 04-09 [facility] Comment on above: Performed By: #### L 501.5200, L500.2500, L100.0100 ####[facility] [address] [place], [address] Calcium [Mass/Vol] 9.1 mg/dL Normal 7.6-11.0 [facility] Comment on above: Performed By: #### L 501.5200, L500.2500, L100.0100 ####[facility] [address] [place], [address] Chloride [Moles/Vol] 101 mmol/L Normal 98-108 [facility] Comment on above: Performed By: #### L 501.5200, L500.2500, L100.0100 ####[facility] [address] [place], [address] CO2 [Moles/Vol] 22.8 mmol/L Normal 21.0-32.0 [facility] Comment on above: Performed By: #### L 501.5200, L500.2500, L100.0100 ####[facility] [address] [place], [address] Creatinine [Mass/Vol] 0.94 mg/dL Normal 0.70-1.20 [facility] Comment on above: Performed By: #### L 501.5200, L500.2500, L100.0100 ####[facility] [address] [place], [address] ECRCL 108.38 ml/min Normal 50-250 [facility] Comment on above: Performed By: #### L 501.5200, L500.2500, L100.0100 ####[facility] [address] [place], [address] GAP 14 Normal 5-15 [facility] Comment on above: Performed By: #### L 501.5200, L500.2500, L100.0100 ####[facility] [address] [place], [address] GFR/1.73 sq M.predicted among non-blacks MDRD (S/P/Bld) [Vol rate/Area] 98 mL/min/{1.73_m2} Normal >60 [facility] Comment on above: Result Comment: mL/m in/1.73m2 CKD-EPI Creatinine Equation (2020) Performed By: #### L 501.5200, L500.2500, L100.0100 ####[facility] [address] [place] [place], [address] Glucose [Mass/Vol] 89 mg/dL Normal 70-99 [facility] Comment on above: Performed By: #### L 501.5200, L500.2500, L100.0100 ####[facility] [address] [place] [place], [address] Potassium [Moles/Vol] 3.4 mmol/L Normal 3.3-5.1 [facility] Comment on above: Performed By: #### L 501.5200, L500.2500, L100.0100 ####[facility] [address] [place] [place], [address] Sodium [Moles/Vol] 137 mmol/L Normal 133-145 [facility] Comment on above: Performed By: #### L 501.5200, L500.2500, L100.0100 ####[facility] [address] [place], [address] Urea nitrogen [Mass/Vol] 18 mg/dL Normal 4-19 [facility] Comment on above: Performed By: #### L 501.5200, L500.2500, L100.0100 ####[facility] [address] [place], [address] CBC W/Diff, Automatedon 10-2 0-2024 Absolute Lymph 1.53 X10 3/uL Normal 0.83-4.51 [facility] Comment on above: Performed By: #### L 501.5200, L500.2500, L100.0100 ####[facility] [address] [place], [address] Absolute Neut 4.0 X10 3/uL Normal 2.0-7.7 [facility] Comment on above: Performed By: #### L 501.5200, L500.2500, L100.0100 ####[facility] [address] [place], [address] Basophils/100 WBC (Bld) 0.3 % Normal 0-[address] [facility] Comment on above: Performed By: #### L 501.5200, L500.2500, L100.0100 ####[facility] [address] [place], [address] Eosinophils/100 WBC (Bld) 3.7 % Normal 0-5 [facility] Comment on above: Performed By: #### L 501.5200, L500.2500, L100.0100 ####[facility] [address] [place], [address] Erythrocyte distribution width (RBC) [Ratio] 12.9 % Normal 11.6-14.6 [facility] Comment on above: Performed By: #### L 501.5200, L500.2500, L100.0100 ####[facility] [address] [place], [address] Hematocrit (Bld) [Volume fraction] 41.3 % Normal 40-54 [facility] Comment on above: Performed By: #### L 501.5200, L500.2500, L100.0100 ####[facility] [address] [place], [address] Hemoglobin (Bld) [Mass/Vol] 14.2 g/dL Normal 13.0-16.5 [facility] Comment on above: Performed By: #### L 501.5200, L500.2500, L100.0100 ####[facility] [address] [place], [address] IG% 0.200 Normal 0.0-0.9 [facility] Comment on above: Result Comment: IG% - Immature Granulocytes (promyelocytes, myelocytes and metamyelocytes) > 1% indicates that a LEFT SHIFT is Present. Performed By: #### L 501.5200, L500.2500, L100.0100 ####[facility] [address] [place], [address] Lymphocytes/100 WBC (Bld) 23.5 % Normal 19-41 [facility] Comment on above: Performed By: #### L 501.5200, L500.2500, L100.0100 ####[facility] [address] [place], [address] MCH (RBC) [Entitic mass] 28.5 pg Normal 27.0-32.0 [facility] Comment on above: Performed By: #### L 501.5200, L500.2500, L100.0100 ####[facility] [address] [place], [address] MCHC (RBC) [Mass/Vol] 34.4 g/dL Normal 32-36 [facility] Comment on above: Performed By: #### L 501.5200, L500.2500, L100.0100 ####[facility] [address] [place], [address] MCV (RBC) [Entitic vol] 82.8 fL Normal 80-94 [facility] Comment on above: Performed By: #### L 501.5200, L500.2500, L100.0100 ####[facility] [address] [place], [address] Monocytes/100 WBC (Bld) 10.5 % High 0-10 [facility] Comment on above: Performed By: #### L 501.5200, L500.2500, L100.0100 ####[facility] [address] [place], [address] Neutrophils/100 WBC (Bld) 61.8 % Normal 47-70 [facility] Comment on above: Performed By: #### L 501.5200, L500.2500, L100.0100 ####[facility] [address] [place], [address] Nucleated RBC (Bld) [#/Vol] 0 10*3/uL Normal 0-5 [facility] Comment on above: Performed By: #### L 501.5200, L500.2500, L100.0100 ####[facility] [address] [place], [address] Platelet mean volume (Bld) [Entitic vol] 10.1 fL Normal 6.2-12.0 [facility] Comment on above: Performed By: #### L 501.5200, L500.2500, L100.0100 ####[facility] [address] [place], [address] Platelets (Bld) [#/Vol] 267 10*3/uL Normal 150-450 [facility] Comment on above: Performed By: #### L 501.5200, L500.2500, L100.0100 ####[facility] [address] [place], [address] RBC (Bld) [#/Vol] 4.99 10*6/uL Normal 4.6-6.2 [facility] Comment on above: Performed By: #### L 501.5200, L500.2500, L100.0100 ####[facility] [address] [place], [address] RDW SD 38.8 fl Normal 35.1-43.9 [facility] Comment on above: Performed By: #### L 501.5200, L500.2500, L100.0100 ####[facility] [address] [place], [address] WBC (Bld) [#/Vol] 6.5 10*3/uL Normal 4.4-11.0 [facility] Comment on above: Performed By: #### L 501.5200, L500.2500, L100.0100 ####[facility] [address] [place], [address] MR/POSTOP.ANEon 04-09-2025 MR/POSTOP.ANE [facility] Medical Records Department [address] [place] [address] Anesthesia Postop Eval I 04/09/25 1354 MR#: [id number] Acct: [id number] Name: ALONDRA ARITA Rep #: [id number] : 1975 49 From: Jaylyn Pelletier CRNA PCP: Care Physician,No Primary Status:ADM KATHLEEN Y Race: C Location: [place] [address]-1 Anesthesia: Postop Eval I Current Vital Signs Temperature: 99 F Pulse Rate: 87 Blood Pressure: 137/80 Respiratory Rate: 16 Pulse Ox: 98 Oxygen Delivery Method: Room Air Assessment Airway patent: Yes Spontaneous unlabored respirations: Yes Mental status: Awake and Calm nausea: No Vomiting: No Anesthesia Complication: No Fluid Hydration Crystalloid volume administer (ml): 1,000 Total IV fluid infused: 1,000 Progress Note Anesthesia document: Postop Eval 1 completed: Yes 04/09/25 1355 Date Jaylyn Pelletier CRNA Cosigner Signature: Date CC: Signed Normal [facility] MR/XDLUMOPT4hx 04-09-2025 MR/POSTOPAN2 [facility] Medical Records Department [address] [place] [address] Anesthesia Postop Eval II 04/09/25 1443 MR#: [id number] Acct: [id number] Name: VICENTAPARAMALONDRATRAV DORSEY Rep #: [id number] : 1975 49 From: Alexey Meraz MD PCP: Care Physician,No Primary Status:ADM KATHLEEN Y Race: C Location: [place] [address] Anesthesia Postop Eval I Sum Postop Eval Completion status Anesthesia document: Postop Eval 1 completed: Yes Anesthesia Postop Eval I Summary Anesthesia Postop Eval I Summary: Anesthesia Postop Eval I: Assessment Summary Airway patent Yes 04/09/25 13:55 FLAT SORTING MACHINE CLERK.JDEF Spontaneous unlabored Yes 04/09/25 13:55 FLAT SORTING MACHINE CLERK.JDEF respirations Mental status Awake,Calm 04/09/25 13:55 FLAT SORTING MACHINE CLERK.JDEF nausea No 04/09/25 13:55 FLAT SORTING MACHINE CLERK.JDEF Vomiting No 04/09/25 13:55 FLAT SORTING MACHINE CLERK.JDEF Anesthesia Postop Eval I: Fluid Summary Crystalloid volume administer 1,000 04/09/25 13:55 FLAT SORTING MACHINE CLERK.JDEF (ml) Colloids volume administered ( ml) Blood Product volume administered (ml) Total IV fluid infused 1,000 04/09/25 13:55 FLAT SORTING MACHINE CLERK.JDEF Anesthesia Postop Eval I: Summary Notes Anesthesia Complication No 04/09/25 13:55 FLAT SORTING MACHINE CLERK.JDEF Anesthesia Complication Comment: Post-operative progress note Anesthesia: Postop Eval II Evaluation Mental status: Awake Pain Level: 2 nausea: No Vomiting: No 04/09/25 1443 Date Alexey Galaviz Signature: Date CC: Signed Normal [facility] Magnesiumon 04-09-2025 Magnesium [Mass/Vol] 1.8 mg/dL Normal 1.5-2.2 [facility] Comment on above: Performed By: #### L 501.5200, L500.2500, L100.0100 ####[facility] [address] [place], [address] Operative Reporton Operative Report [facility] Medical Records Department [address] [place] [address] Operative Report 04/09/25 1326 MR#: [id number] Acct: [id number] Name: ALONDRA ARITA Rep #: [id number] : 1975 49 From: Abbie Philip MD PCP: Care Physician,No Primary Status:ADM IN Location: [facility] [id number] Operative Report (Standard) Operative Information Date of Procedure: 04/09/25 Pre-Operative Diagnosis: Postop ileus versus bowel obstruction Post-Operative Diagnosis: Same Surgery/Procedure Performed: Diagnostic laparoscopy, lysis of adhesion indoor landscape architect: Yes Vehicle Assembler: Renay Leo Tasks completed by pediatric assistant: Opening closing Type of Anesthesia: General/Supplemental RN Documented Start/Stop Times: Operation Date: 04/09/25 11:30 Case Time Into Pre-Op 04/09/25 11:15 Anesthesia Start 04/09/25 12:26 Into Room 04/09/25 12:26 Procedure Start 04/09/25 12:50 Procedure End 04/09/25 13:31 Anesthesia End 04/09/25 13:37 Out of Room 04/09/25 13:37 Into Recovery 04/09/25 13:43 Out of Recovery 04/09/25 14:11 Procedure Start Time: 12:50 Procedure Stop Time: 13:31 Select all DRAINS/GRAFTS/IMPLANTS that apply: None Special Medications: Cefotetan 2 g IV x 1 Estimated Blood Loss: < 10 cc Specimen collected: No Description of surgery: Indications: this is a 49 year-old male who had a postoperative ileus versus bowel obstruction status post incisional hernia repair with mesh status post robotic cholecystectomy. Description procedure: The patient was placed on operating table in supine position. A timeout was completed verifying correct patient, procedure, site, position and special equipment prior to beginning procedure. General Anesthesia was induced. The abdomen was prepped and draped in usual sterile fashion with Betadine at previous incisions for prep and the rest of the abdomen. An incision was made in the epigastrium. The fascia was elevated and incised. The [...] were then inserted in the following locations 5 mm trocar in the left upper quadrant and left lower quadrant. Small bowel noted to be dilated. there was small bowel adherent to the mesh this was able to removed with gentle traction. There was also an adhesions between loops of small bowel creating a tight turn due to mesh was also able to be removed with gentle traction. The rest of the bowel was ran to the cecum no other sites of stricture or adhesions were seen. Unable to bring the omentum to cover the area of the mesh as it was up in the left upper quadrant and too heavy with all the dilated small bowel to be moved. Secondary trochars removed under direct vision. No bleeding was noted the trocar sites. The laparoscope was withdrawn and umbilical trocar removed. The abdomen was allowed to collapse. The fascia of the 12 mm trocar was closed with a [id number] 0 PDS suture. The skin was closed with sutures of 4-0 Monocryl and Steri-Strips. The patient was extubated. The patient tolerated procedure well and was taken to the postanesthesia care unit in stable condition. Surgical Findings: See op report Complications Complications: No 04/10/25 0806 Cosigner Signature (if applicable): CC: Dr. Abbie Philip MD; No Primary Care Physician Signed ADDENDUM by Dr. Abbie Philip MD on 04/11/25 at 1317 Addendum After adhesions were taken down, secure strap was used to tack down the mesh on the patient's right and left side. 04/11/25 1317 Cosigner Signature (if applicable): cc: Dr. Abbie Philip MD; No Primary Care Physician * Signed Normal [facility] Small Bowel Series Onlyon Small Bowel Series Only [facility] Imaging Services [address], [place] [address] Small Bowel Series Only MR#: [id number] Acct: [id number] Name: ALONDRA ARITA Rep #: [id number] : 1975 M 49 From: David quevedo MD PCP: Care Physician,No Primary Status: ADM KATHLEEN Study: Small Bowel Series Only Date of Exam: 04/09/25 Exam# [id number] Ordering Dr: Abbie Philip MD PROCEDURE: SMALL BOWEL SERIES ONLY 04/09/2025 REASON FOR EXAM: SMALL BOWEL OBSTRUCTION Recent hernia repair. TECHNIQUE: SMALL BOWEL SERIES ONLY FLUOROSCOPIC TIME: None FLUOROGRAPHIC IMAGES: 5 COMPARISON: Prior study dated April 08, 2025. FINDINGS: A nasogastric tube is seen with the tip in the distal portion of the stomach. A biliary stent catheter is seen. There is evidence of dilated small bowel loops. Following this, the patient ingested Gastrografin. A small bowel follow-through examination was performed up to 1 hour as determined by the surgeon. There is evidence of small bowel dilatation. Contrast is seen in the proximal small bowel. RAD/Small Bowel Series Only IMPRESSION: Persistent small bowel dilatation. Incomplete study. Findings suggestive of small-bowel obstruction. Reading Location: [place] [address] CC: Dr. Abbie Philip MD; No Primary Care Physician Life Sciences Teacher: Signed Normal [facility] Abdomen Single Viewon 2024 Abdomen Single View [facility] Imaging Services [address] [place], [place] [address] Abdomen Single View MR#: [id number] Acct: [id number] Name: ALONDRA ARITA Rep #: [id number] : 1975 M 49 From: Jordy Rodríguez DO PCP: Care Physician,No Primary Status: ADM KATHLEEN Study: Abdomen Single View Date of Exam: 04/08/25 Exam# [id number] Ordering Dr: Abbie Philip MD PROCEDURE: ABDOMEN SINGLE VIEW 04/08/2025 REASON FOR EXAM: NAUSEA POST OP TECHNIQUE: Procedure Code: RAD ABD Modality: DX Procedure: ABDOMEN SINGLE VIEW COMPARISON: Ercp 03/16/[address] SAME date FINDINGS: Bowel gas: 4 or 5 distended differential air-fluid levels are seen in the upper half of the left lower quadrant of the abdomen. Findings suggest postoperative ileus versus obstruction. Please correlate clinically. Biliary stent in place. Calcifications: No abnormal large calcifications appreciated. Bones: Unremarkable Other: Significant findings RAD/Abdomen Single View IMPRESSION: Obstructed bowel-gas pattern. Correlate clinically to rule out ileus Reading Location: [facility] CC: Dr. Abbie Philip MD; No Primary Care Physician Life Sciences Teacher: Signed Normal [facility] Abdomen Single View (Portabl e)on 04-08-2025 Abdomen Single View (Portable) [facility] Imaging Services [address], [place] [id number] Abdomen Single View (Portable) MR#: [id number] Acct: [id number] Name: ALONDRA ARITA Rep #: [id number] : 1975 M 49 From: Chino Elliott MD PCP: Care Physician,No Primary Status: ADM KATHLEEN Study: Abdomen Single View (Portable) Date of Exam: 1 Exam# [id number] Ordering Dr: Abbie Philip MD PROCEDURE: ABDOMEN SINGLE VIEW (PORTABLE) 04/08/2025 REASON FOR EXAM: FOR NG PLACEMENT TECHNIQUE: Procedure Code: RADABD_P Modality: DX Procedure: ABDOMEN SINGLE VIEW (PORTABLE) COMPARISON: Earlier same day 04/08/2025 FINDINGS: Enteric tube extends below the diaphragm, coiled in the left upper abdomen, side port/distal tip terminating in the expected location of the stomach/proximal duodenum. Biliary ductal stent in place. Unchanged appearance of dilated air-filled small bowel segments in the upper midabdomen. No discernible free air. No unusual calcific densities appreciated. Mild left basilar discoid atelectasis. RAD/Abdomen Single View (Portable) IMPRESSION: 1. Enteric tube terminates within the distal stomach/proximal duodenum. 2. Unchanged dilated air-filled small bowel loops in the upper midabdomen. Reading Location: [id number] CC: Dr. Abbie Philip MD; No Primary Care Physician Life Sciences Teacher: Signed Normal [facility] Abdomen/Pelvis without Conto n 04-08-2025 Abdomen/Pelvis without Cont [facility] Imaging Services [address], [place] [id number] Abdomen/Pelvis without Cont MR#: [id number] Acct: [id number] Name: ALONDRA ARITA Rep #: [id number] : 1975 M 49 From: Jordy Rodríguez DO PCP: Care Physician,No Primary Status: ADM KATHLEEN Study: Abdomen/Pelvis without Cont Date of Exam: 03/21 03/15 Exam# [id number] Ordering Dr: Abbie Philip MD PROCEDURE: ABDOMEN/ PELVIS WITHOUT CONT 04/08/2025 REASON FOR EXAM: POST OP TECHNIQUE: Procedure Code: CT ABD PEL Modality: CT Procedure: ABDOMEN/PELVIS WITHOUT CONT Noncontrast technique limits evaluation of the abdominal and pelvic viscera. Coronal and Sagittal reconstruction series were provided. One or more dose reduction techniques were used (e.g., Automated exposure control, adjustment of the mA and/or kV according to patient size, use of iterative reconstruction technique). RADIATION DOSE SUMMARY: CTDlvol: 21.87 mGy DLP: 1325 0.06 mGycm COMPARISON: CT of April 07, 2020, yesterday FINDINGS: Lung bases: Calcified nodule right middle lobe Liver: Biliary stent in place. Intrahepatic biliary air in the left lobe. Gallbladder: Not identified Spleen: Unremarkable Pancreas: Unremarkable Adrenals: Normal Kidneys: Unremarkable Bladder: Unremarkable Reproductive Organs: Unremarkable Bowel: Fluid and air dilated small bowel with transition point in the distal 3rd of the ileum suggest mechanical obstruction or obstruction from other etiology with a transition to normal caliber small bowel in the distal 3rd of the ileum Appendix: Normal appendix identified. Lymph nodes: Grossly no aortocaval, pelvic or inguinal adenopathy Vasculature: Unremarkable Peritoneum / Retroperitoneum: No free air and no free fluid Bones: No lytic or blastic bone abnormalities. CT/Abdomen/Pelvis without Cont IMPRESSION: Small-bowel obstruction is of concern. Correlate clinically Reading Location: [facility] CC: Dr. Abbie Philip MD; No Primary Care Physician Life Sciences Teacher: Signed Normal [facility] Abdomen/Pelvis W IV Cont ONL Yon 04-07-2025 Abdomen/Pelvis W IV Cont ONLY [facility] Imaging Services [address] [place] [address] Abdomen/Pelvis W IV Cont ONLY MR#: [id number] Acct: [id number] Name: ALONDRA ARITA Rep #: [id number] : 1975 M 49 From: Chino Elliott MD PCP: Care Physician,No Primary Status: [facility] Study: Abdomen/Pelvis W IV Cont ONLY Date of Exam: Exam# [id number] Ordering Dr: Rich Ramirez MD PROCEDURE: CT ABDOMEN/PELVIS W IV CONT ONLY 04/07/2025 REASON FOR EXAM: RECENT CYNDIE, POSTOP N/V, RUQ PAIN TECHNIQUE: Procedure Code: CTABDPELIV Modality: CT Procedure: ABDOMEN/PELVIS W IV CONT ONLY Coronal and Sagittal reconstruction series were provided. CONTRAST: Isovue 300 VOLUME: 99 mL One or more dose reduction techniques were used (e.g., Automated exposure control, adjustment of the mA and/or kV according to patient size, use of iterative reconstruction technique. RADIATION DOSE SUMMARY: DLP: 1331.71 mGycm COMPARISON: Abdominal CT 03/16/2025. FINDINGS: Lung bases: Clear. Mild bibasilar dependent atelectasis. Hepatobiliary: Hepatic steatosis. Redemonstrated hyperattenuating mass with central hypodensity in the right lobe of the liver, favoring focal nodular hyperplasia. Status post cholecystectomy with mild postoperative prominence of the biliary ductal system with a biliary stent traversing the CBD and extending into the duodenum. Presumed postoperative pneumobilia in the left hepatic lobe. Normal size spleen. Unremarkable appearance of the pancreas. Genitourinary: Normal adrenal glands. Symmetric renal enhancement. No urolithiasis or hydronephrosis. Unremarkable urinary bladder. Normal-sized prostate. Bowel: There is a small supraumbilical ventral abdominal wall hernia containing a focally herniated short-segment of jejunal small bowel, with a narrow neck and small-bowel obstruction at the site of herniation with upstream proximal small bowel dilatation with multiple air-fluid levels. Distally the remainder of the bowel is largely decompressed. Normal appendix. No evidence for active inflammatory process. Mild distal colonic diverticulosis without evidence for active diverticulitis. Lymph nodes: No enlarged abdominopelvic lymph nodes. Vasculature: Normal caliber abdominal aorta and IVC. Peritoneum / Retroperitoneum: No ascites or free air. Bones: Minimal degenerative changes of the spine. CT/Abdomen/Pelvis W IV Cont ONLY IMPRESSION: 1. Proximal small bowel obstruction with transition point at the location of a small supraumbilical ventral abdominal wall hernia, with focally herniated short-segment of jejunal small bowel. 2. 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 This can be confirmed with a dedicated MRI with Eovist. 3. Prior cholecystectomy with biliary ductal stent in place. Postoperative pneumobilia. Reading Location: [id number] CC: Dr. Rich Ramirez MD; No Primary Care Physician Life Sciences Teacher: Signed Normal [facility] Bilirubin, totalOrdered By: Rich Ramirez on 04-07-2025 Bilirubin [Mass/Vol] 0.75 mg/dL 0.00-1.30 [facility] CBC W/Diff, Automatedon 03-21 Absolute Lymph 1.71 X10 3/uL Normal 0.83-4.51 [facility] Comment on above: Performed By: #### L 501.2450, L500.4050, L100.0100 ####[facility] [address] [place], [address] Absolute Neut 10.0 X10 3/uL High 2.0-7.7 [facility] Comment on above: Performed By: #### L 501.2450, L500.4050, L100.0100 ####[facility] [address] [place], [address] Basophils/100 WBC (Bld) 0.3 % Normal 0-[address] [facility] Comment on above: Performed By: #### L 501.2450, L500.4050, L100.0100 ####[facility] [address] [place], [address] Eosinophils/100 WBC (Bld) 0.6 % Normal 0-5 [facility] Comment on above: Performed By: #### L 501.2450, L500.4050, L100.0100 ####[facility] [address] [place], [address] Erythrocyte distribution width (RBC) [Ratio] 12.9 % Normal 11.6-14.6 [facility] Comment on above: Performed By: #### L 501.2450, L500.4050, L100.0100 ####[facility] [address] [place], [address] Hematocrit (Bld) [Volume fraction] 47.1 % Normal 40-54 [facility] Comment on above: Performed By: #### L 501.2450, L500.4050, L100.0100 ####[facility] [address] [place], [address] Hemoglobin (Bld) [Mass/Vol] 16.3 g/dL Normal 13.0-16.5 [facility] Comment on above: Performed By: #### L 501.2450, L500.4050, L100.0100 ####[facility] [address] [place], [address] IG% 0.500 Normal 0.0-0.9 [facility] Comment on above: Result Comment: IG% - Immature Granulocytes (promyelocytes, myelocytes and metamyelocytes) > 1% indicates that a LEFT SHIFT is Present. Performed By: #### L 501.2450, L500.4050, L100.0100 ####[facility] [address] [place], [address] Lymphocytes/100 WBC (Bld) 13.7 % Low 19-41 [facility] Comment on above: Performed By: #### L 501.2450, L500.4050, L100.0100 ####[facility] [address] [place], [address] MCH (RBC) [Entitic mass] 27.8 pg Normal 27.0-32.0 [facility] Comment on above: Performed By: #### L 501.2450, L500.4050, L100.0100 ####[facility] [address] [place], [address] MCHC (RBC) [Mass/Vol] 34.6 g/dL Normal 32-36 [facility] Comment on above: Performed By: #### L 501.2450, L500.4050, L100.0100 ####[facility] [address] [place], [address] MCV (RBC) [Entitic vol] 80.4 fL Normal 80-94 [facility] Comment on above: Performed By: #### L 501.2450, L500.4050, L100.0100 ####[facility] [address] [place], [address] Monocytes/100 WBC (Bld) 5.4 % Normal 0-10 [facility] Comment on above: Performed By: #### L 501.2450, L500.4050, L100.0100 ####[facility] [address] [place], [address] Neutrophils/100 WBC (Bld) 79.5 % High 47-70 [facility] Comment on above: Performed By: #### L 501.2450, L500.4050, L100.0100 ####[facility] [address] [place], [address] Nucleated RBC (Bld) [#/Vol] 0 10*3/uL Normal 0-5 [facility] Comment on above: Performed By: #### L 501.2450, L500.4050, L100.0100 ####[facility] [address] [place], [address] Platelet mean volume (Bld) [Entitic vol] 10.3 fL Normal 6.2-12.0 [facility] Comment on above: Performed By: #### L 501.2450, L500.4050, L100.0100 ####[facility] [address] [place], [address] Platelets (Bld) [#/Vol] 346 10*3/uL Normal 150-450 [facility] Comment on above: Performed By: #### L 501.2450, L500.4050, L100.0100 ####[facility] [address] [place], [address] RBC (Bld) [#/Vol] 5.86 10*6/uL Normal 4.6-6.2 [facility] Comment on above: Performed By: #### L 501.2450, L500.4050, L100.0100 ####[facility] [address] [place], [address] RDW SD 37.2 fl Normal 35.1-43.9 [facility] Comment on above: Performed By: #### L 501.2450, L500.4050, L100.0100 ####[facility] [address] [place], [address] WBC (Bld) [#/Vol] 12.5 10*3/uL High 4.4-11.0 [facility] Comment on above: Performed By: #### L 501.2450, L500.4050, L100.0100 ####[facility] [address] [place], [address] Comprehensive Metabolic Prof [facility] 04-07-2025 Albumin [Mass/Vol] 4.2 g/dL Normal 3.5-5.0 [facility] Comment on above: Performed By: #### L 501.2450, L500.4050, L100.0100 ####[facility] [address] [place], [address] Albumin/Globulin [Mass ratio] 1.2 {ratio} Normal 0.9-2.4 [facility] Comment on above: Performed By: #### L 501.2450, L500.4050, L100.0100 ####[facility] [address] [place], [address] ALK PHOS 52 U/L Normal 40-129 [facility] Comment on above: Performed By: #### L 501.2450, L500.4050, L100.0100 ####[facility] [address] [place], [address] ALT [Catalytic activity/Vol] 26 U/L Normal <=46 [facility] Comment on above: Performed By: #### L 501.2450, L500.4050, L100.0100 ####[facility] [address] [place], [address] AST [Catalytic activity/Vol] 18 U/L Normal <=37 [facility] Comment on above: Performed By: #### L 501.2450, L500.4050, L100.0100 ####[facility] [address] [place], [address] Bilirubin [Mass/Vol] 0.75 mg/dL Normal 0.00-1.30 [facility] Comment on above: Performed By: #### L 501.2450, L500.4050, L100.0100 ####[facility] [address] [place], [address] BUN/CRE 17.4 RATIO Normal 10-20 [facility] Comment on above: Performed By: #### L 501.2450, L500.4050, L100.0100 ####[facility] [address] [place], [address] Calcium [Mass/Vol] 9.9 mg/dL Normal 7.6-11.0 [facility] Comment on above: Performed By: #### L 501.2450, L500.4050, L100.0100 ####[facility] [address] [place], [address] Chloride [Moles/Vol] 100 mmol/L Normal 98-108 [facility] Comment on above: Performed By: #### L 501.2450, L500.4050, L100.0100 ####[facility] [address] [place], [address] CO2 [Moles/Vol] 22.5 mmol/L Normal 21.0-32.0 [facility] Comment on above: Performed By: #### L 501.2450, L500.4050, L100.0100 ####[facility] [address] [place], [address] Creatinine [Mass/Vol] 0.93 mg/dL Normal 0.70-1.20 [facility] Comment on above: Performed By: #### L 501.2450, L500.4050, L100.0100 ####[facility] [address] [place], [address] ECRCL 107.69 ml/min Normal 50-250 [facility] Comment on above: Performed By: #### L 501.2450, L500.4050, L100.0100 ####[facility] [address] [place], [address] GAP 15 Normal 5-15 [facility] Comment on above: Performed By: #### L 501.2450, L500.4050, L100.0100 ####[facility] [address] [place], [address] GFR/1.73 sq M.predicted among non-blacks MDRD (S/P/Bld) [Vol rate/Area] 101 mL/min/{1.73_m2} Normal >60 [facility] Comment on above: Result Comment: mL/m in/1.73m2 CKD-EPI Creatinine Equation (2020) Performed By: #### L 501.2450, L500.4050, L100.0100 ####[facility] [address] [place], [address] Globulin (S) [Mass/Vol] 3.4 g/dL Normal 2.2-4.2 [facility] Comment on above: Performed By: #### L 501.2450, L500.4050, L100.0100 ####[facility] [address] [place], [address] Glucose [Mass/Vol] 119 mg/dL High 70-99 [facility] Comment on above: Performed By: #### L 501.2450, L500.4050, L100.0100 ####[facility] [address] [place], [address] Potassium [Moles/Vol] 3.6 mmol/L Normal 3.3-5.1 [facility] Comment on above: Performed By: #### L 501.2450, L500.4050, L100.0100 ####[facility] [address] [place], [address] Sodium [Moles/Vol] 137 mmol/L Normal 133-145 [facility] Comment on above: Performed By: #### L 501.2450, L500.4050, L100.0100 ####[facility] [address] [place], [address] T PROT 7.6 g/dL Normal 5.9-8.4 [facility] Comment on above: Performed By: #### L 501.2450, L500.4050, L100.0100 ####[facility] [address] [place], [address] Urea nitrogen [Mass/Vol] 16 mg/dL Normal 4-19 [facility] Comment on above: Performed By: #### L 501.2450, L500.4050, L100.0100 ####[facility] [address] [place], [address] Emergency Department Summary on 04-07-2025 Emergency Department Summary [facility] Medical Records Department [address] [place] [address] Emergency Department Summary 04/07/25 MR#: [id number] Acct: [id number] Name: ALONDRA ARITA Rep #: [id number] : 1975 49 From: Rich Ramirez MD PCP: Care Physician,No Primary Status:[facility] Location: [place] [address] HPI HPI - GI History of Present Illness Chief Complaint: Nausea/Vomiting Informant: patient and spouse/S.O. Narrative Narrative: Patient is a 49-year-old male presenting with nausea, emesis, and abdominal pain following cholecystectomy performed 3 days ago. - Reports feeling unwell since the surgery, with daily episodes of emesis. - Has been consuming only Gatorade; last solid food intake was on night of surgery. - Experiences upper abdominal pain, which he describes as distinct from incision pain. - Emesis provides temporary relief, but symptoms recur after about 6 hours. - Denies emesis being consistently triggered by fluid intake. - Has been ambulating when feeling well to promote bowel function. - Reports bloating and minimal gas passage and no bowel movement since surgery. - Has taken three doses of prescribed oxycodone but prefers to avoid further use. [facility] Medical History (Updated 04/07/25 @ 15:[address] Rich Ramirez MD) Wears glasses Fatty liver Heartburn Gastric reflux Non-smoker Nausea Abdominal pain GERD (gastroesophageal reflux disease) Home Medications ???Medication ???Instructions ???Recorded ???Last Taken ???Type omeprazole 40 mg capsule,delayed 40 mg PO QDAY #30 caps 03/23/25 Rx release oxycodone 5 mg capsule 5 mg PO Q6H PRN pain 3 days #10 Unknown Rx caps Allergy/AdvReac Type Severity Reaction Status Date / Time No Known Allergies Allergy Verified 04/07/25 13:36 Surgical History S/P laparoscopic cholecystectomy History of wisdom tooth extraction ( 06/21/94) Hx of LASIK History of ERCP (03/16/25) Social History Smoking Status: Never smoker alcohol intake: never substance use type: does not use ROS ROS ED Constitutional Constitutional ED: Denies chills or fever(s) Eyes Eyes: Denies change in vision or diplopia ENT ENT ED: Denies rhinorrhea or sore throat Cardiovascular Cardiovascular: Denies chest pain or palpitations Respiratory/Chest Respiratory/Chest: Denies cough or dyspnea Gastrointestinal Gastrointestinal: Reports abdominal pain, nausea, vomiting and other Details: no BM since surgery ; Denies diarrhea Genitourinary Genitourinary ED: Denies dysuria or hematuria Musculoskeletal Musculoskeletal: Denies back pain or neck pain Integumentary Denies abscess or rash Neurologic Neurologic: Denies headache(s), paresthesias or weakness Psychiatric Psychiatric: Denies anxiety or suicidal thoughts EXAM Physical Exam Const Vital Signs: 04/07/25 13:36 04/07/25 13:38 04/07/25 13:51 Temperature 98.9 F 98.9 F Temperature Source Oral Oral Pulse Rate 101 H 101 H 88 Respiratory Rate 18 21 H 19 H Blood Pressure 120/88 H 134/84 H Blood Pressure Mean 98 100 Pulse Ox 95 96 96 Oxygen Delivery Method Room Air Room Air Room Air 04/07/25 15:34 04/07/25 15:34 04/07/25 15:56 Temperature 98.9 F 98.9 F Temperature Source Pulse Rate 88 88 88 Respiratory Rate 19 H 16 16 Blood Pressure 134/84 H 134/84 H Blood Pressure Mean 100 Pulse Ox 96 98 98 Oxygen Delivery Method Room Air Positive well nourished and well developed General Appearance ED: well developed and NAD HEENT Reports moist mucous membranes normocephalic and atraumatic Eyes PERRL and EOMs intact bilaterally Neck full ROM and supple Resp normal respiratory effort and clear to auscultation bilaterally Cardio regular rate, regular rhythm and no murmurs GI GI Narrative: RUQ tenderness, no guard/kylah; mildly ttp left of suprapubic. All surgical incisions without signs of infection significant tenderness or dehiscence. No discharge. 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 I discussed the case with her, and she agrees that ileus is not a (more content not included)... Normal [facility] H AND P Exam - Surgicalon H&P Exam - Surgical [facility] Medical Records Department [address] [place] [address] H P Exam - Surgical 04/07/25 1537 MR#: [id number] Acct: [id number] Name: ALONDRA ARITA Rep #: [id number] : 1975 49 From: Abbie Philip MD PCP: Care Physician,No Primary Status:[place] [facility] [place]: [place] [address] HPI - General General Date of Service: 04/07/25 HPI Narrative ALONDRA ARITA, is a 49 M who presents due to nausea and vomiting status post robotic cholecystectomy on 04/04. Patient has had vomiting daily since the surgery and states that he feels better once he throws up but it is not really able to take any food even liquids cause him discomfort. Patient's white blood count is 12.5 with slight left shift. Patient's LFTs are normal. Patient CT shows an incisional hernia causing a bowel obstruction. [facility] Medical History (Updated 04/07/25 @ 15:[address] Abbie Philip MD) Wears glasses Fatty liver Heartburn Gastric reflux Non-smoker Nausea Abdominal pain GERD (gastroesophageal reflux disease) Home Medications ???Medication ???Instructions ???Recorded ???Last Taken ???Type omeprazole 40 mg capsule,delayed 40 mg PO QDAY #30 caps 03/23/25 Rx release oxycodone 5 mg capsule 5 mg PO Q6H PRN pain 3 days #10 Unknown Rx caps Allergy/AdvReac Type Severity Reaction Status Date / Time No Known Allergies Allergy Verified 04/07/25 13:36 Surgical History S/P laparoscopic cholecystectomy History of wisdom tooth extraction ( 06/21/94) Hx of LASIK History of ERCP (03/16/25) Social History Smoking Status: Never smoker alcohol intake: never substance use type: does not use Vital Signs Vital Signs Vital Signs: 04/07/25 13:36 04/07/25 13:38 04/07/25 13:51 Temperature 98.9 F 98.9 F Temperature Source Oral Oral Pulse Rate 101 H 101 H 88 Respiratory Rate 18 21 H 19 H Blood Pressure 120/88 H 134/84 H Blood Pressure Mean 98 100 Pulse Ox 95 96 96 Oxygen Delivery Method Room Air Room Air Room Air Weight Weight: 223 lb Body Mass Index (BMI) 34.9 Physical Exam Const oriented x3 Resp normal respiratory effort Cardio regular rate GI GI Narrative: Incisions dressed clean dry and intact, hernia reduced at supraumbilical incision at bedside???tender Inspection: Negative for abdominal distention Results Lab / Micro Data 04/07/25 14:15 04/07/25 14:15 Labs: Laboratory Results - last 24 hr 04/07/25 14:15: WBC 12.5 H, RBC 5.86, Hgb 16.3, Hct 47.1, MCV 80.4, MCH 27.8, MCHC 34.6, RDW Std Deviation 37.2, RDW Coeff of Ghulam 12.9, Plt Count 346, MPV 10.3, Immature Gran % (Auto) 0.500, Neut % (Auto) 79.5 H, Lymph % (Auto) 13.7 L, Coamo % (Auto) 5.4, Eos % (Auto) 0.6, Baso % (Auto) 0.3, A bsolute Neuts (auto) 10.0 H, Absolute Lymphs (auto) 1.71, Nucleated RBC % 0, Sodium 137, Potassium 3.6, Chloride 100, Carbon Dioxide 22.5, Anion Gap 15, BUN 16, Creatinine 0.93, Estim Creat Clear Calc 107.69, Est GFR (MDRD) Non-Af 101, BUN/Creatinine Ratio 17.4, Glucose 119 H, Calcium 9.9, Total Bilirubin 0.75, AST 18, ALT 26, Alkaline Phosphatase 52, Total Protein 7.6, Albumin 4.2, Globulin 3.4, Albumin/Globulin Ratio 1.2, Lipase 36 Assessment Plan Assessment/Plan (1) Incisional hernia with bowel obstruction: PLAN: Plan Hernia was able to be reduced at bedside. Patient will also be getting NG in the ER to help prevent aspiration during intubation in the OR. Plan for incisional hernia repair discussed risk including but not limited to bleeding, infection, need for further surgery. Patient is had no further question this time. Abbie Philip M.D. Pager: [phone] [facility] [address] [place] [address], [facility], [address] [place] [address] Office: [phone] 04/07/25 6623 Cosigner Signature (if applicable): CC: Dr. Abbie Philip MD; No Primary Care Physician Signed Normal [facility] Laboratory - Chemistry and C hemistry - challengeOrdered By: Rich Ramirez on 04-07-2025 AST [Catalytic activity/Vol] 18 U/L <38 [facility] Lipaseon 04-07-2025 Lipase [Catalytic activity/Vol] 36 U/L Normal 13-75 [facility] Comment on above: Result Comment: Plea se note: LIPASE revised reference range effective 22. New Lipase methodology. Expected to produce lower values than the previous assay method. NEW Reference Range: 13 - 75 U/L Performed By: #### L 501.2450, L500.4050, L100.0100 ####[facility] [address] [facility]. [place], [place], [address] Lipase measurementOrdered By : Rich Ramirez on 04-07-2025 Lipase [Catalytic activity/Vol] 36 U/L 13-75 [facility] Comment on above: Please note:LIPASE r evised reference range effective 22. New Lipase methodology. Expected to produce lower values than the previous assay method. NEW Reference Range: 13 - 75 U/L MR/POSTOP.ANEon 04-07-2025 MR/POSTOP.[facility] Medical Records Department [address] [place] [address] Anesthesia Postop Eval I 04/07/251703 MR#: [id number] Acct: [id number] Name: ALONDRA ARITA Rep #: [id number] : 1975 49 From: Jamar Gonzalez MD PCP: Care Physician,No Primary Status:REG SDC Y Race: C [facility] Anesthesia: Postop Eval I Current Vital Signs Temperature: 97 F Pulse Rate: 81 Blood Pressure: 126/68 Respiratory Rate: 14 Pulse Ox: 94 Assessment Airway patent: Yes Spontaneous unlabored respirations: Yes nausea: No Vomiting: No Anesthesia Complication: No Fluid Hydration Crystalloid volume administer (ml): 1,200 Total IV fluid infused: 1,200 Progress Note Anesthesia document: Postop Eval 1 completed: Yes 04/07/251707 Date Jamar Gonzalez MD Cosigner Signature: Date CC: Signed Normal [facility] MR/[id number] 04-07-2025 [facility] Medical Records Department [address] [place] [address] Anesthesia Postop Eval II 04/07/251707 MR#: [id number] Acct: [id number] Name: ALONDRA ARITA Rep #: [id number] : 1975 49 From: Jamar Gonzalez MD PCP: Care Physician,No Primary Status:REG SDC Y Race: C Location: [facility] Anesthesia Postop Eval I Sum Postop Eval Completion status Anesthesia document: Postop Eval 1 completed: Yes Anesthesia Postop Eval I Summary Anesthesia Postop Eval I Summary: Anesthesia Postop Eval I: Assessment Summary Airway patent Yes 04/07/25 17:04 Spontaneous unlabored Yes 04/07/25 17:04 respirations Mental status nausea No 04/07/25 17:04 Vomiting No 04/07/25 17:04 Anesthesia Postop Eval I: Fluid Summary Crystalloid volume administer 1,200 04/07/25 17:04 (ml) Colloids volume administered ( ml) Blood Product volume administered (ml) Total IV fluid infused 1,200 04/07/25 17:04 Anesthesia Postop Eval I: Summary Notes Anesthesia Complication No 04/07/25 17:04 Anesthesia Complication Comment: Post-operative progress note Anesthesia: Postop Eval II Evaluation Mental status: Awake Pain Level: 0 nausea: No Vomiting: No 04/07/25 1708 Date Jamar Gonzalez MD Cosigner Signature: Date CC: Signed Normal [facility] Operative Reporton Operative Report [facility] Medical Records Department [address] [place] [address] Operative Report 04/07/25 1645 MR#: [id number] Acct: [id number] Name: ALONDRA ARITA Rep #: [id number] : 1975 49 From: Abbie Philip MD PCP: Care Physician,No Primary Status:ADM KATHLEEN Location: [place] [address] Operative Report (Standard) Operative Information Date of Procedure: 04/07/25 Pre-Operative Diagnosis: Incisional hernia Post-Operative Diagnosis: Same Surgery/Procedure Performed: Open incisional hernia pair with mesh indoor landscape architect: Yes Vehicle Assembler: Renay Leo Tasks completed by pediatric assistant: Opening closing Type of Anesthesia: General/Supplemental RN Documented Start/Stop Times: Operation Date: 04/07/25 16:15 Case Time Anesthesia Start 04/07/25 15:58 Into Room 04/07/25 15:58 Procedure Start 04/07/25 16:19 Procedure End 04/07/25 16:53 Anesthesia End 04/07/25 17:00 Out of Room 04/07/25 17:00 Into Recovery 04/07/25 17:03 Out of Recovery 04/07/25 17:40 Procedure Start Time: 16:19 Procedure Stop Time: 16:53 Select all DRAINS/GRAFTS/IMPLANTS that apply: Prosthetic device Prosthetic device details: Ventralex ST 6.4 cm LOT [id number] ref [id number] Special Medications: Ancef 2 g IV x 1 Estimated Blood Loss: < 10 cc Specimen collected: No Description of surgery: Patient was brought into the room placed supine on the operating table. Correct patient, procedure, site, positioning, special, was verified prior to procedure. General anesthesia was induced. The abdomen was prepped draped in usual sterile fashion. The previous superior midline incision was opened with a 15 blade scalpel. Small bowel was seen and viable. This was reduced back in the abdomen. The fascia around the hernia defect was cleared and the hernia defect measured 2 x 2.2 cm. The fascia was noted to be thin. A 6.[address] hernia patch was used and secured laterally at the tails with 1 Nurolon mattress sutures. 1 Nurolon suture was placed to close the fascia in a ncnfly-tn-wjgnx x2 and 1 interrupted including the mesh inferiorly and superiorly. The wound was irrigated with saline. Hemostasis was assured. The incision was closed with 3-0 Vicryl subdermal interrupted sutures and the skin was closed with interrupted 4-0 Monocryl sutures. Steri-Strips and Tegaderm and OpSite were placed over the incision once pressure dressing is placed over the incision. Patient was extubated. Patient tolerated procedure well and was taken to the postanesthesia care unit in stable condition. Surgical Findings: See operative report Complications Complications: No 04/08/25 1005 Cosigner Signature (if applicable): CC: Dr. Abbie Philip MD; No Primary Care Physician Signed Normal [facility] Serum globulin measurementOr dered By: Rich Ramirez on 04-07-2025 Globulin (S) [Mass/Vol] 3.4 g/dL 2.2-4.[address] [facility] Serum or plasma alanine jackson otransferase (ALT) measurementOrdered By: Rich Ramirez on 04-07-2025 ALT [Catalytic activity/Vol] 26 U/L <47 [facility] Serum or plasma albumin carlos urement (mass/volume)Ordered By: Rich Ramirez on 04-07-2025 Albumin [Mass/Vol] 4.2 g/dL 3.5-5.0 [facility] Serum or plasma albumin/glob ulin mass ratioOrdered By: Rich Ramirez on 04-07-2025 Albumin/Globulin [Mass ratio] 1.2 {ratio} 0.9-2.4 [facility] Serum or plasma alkaline julio sphatase measurementOrdered By: Rich Ramirez on 04-07-2025 ALP [Catalytic activity/Vol] 52 U/L 40-129 [facility] Total proteinOrdered By: Angel Ramirez on 04-07-2025 Protein [Mass/Vol] 7.6 g/dL 5.9-8.4 [facility] Bilirubin directOrdered By: Abbie Philip on 04-04-2025 Bilirubin.direct [Mass/Vol] 0.32 mg/dL High 0.00-0.30 [facility] Bilirubin, totalOrdered By: Abbie Philip on 04-04-2025 Bilirubin [Mass/Vol] 0.71 mg/dL 0.00-1.30 [facility] Discharge Instructionon 03-21 Discharge Instruction [facility] Medical Records Department [address] [place] [address] Instructions for Home/Discharge Instructions 04/04/25 1526 MR#: [id number] Acct: [id number] Name: ALNODRA ARITA Rep #: [id number] : 1975 49 From: Abbie Philip MD PCP: Care Physician,No Primary Status:[facility] Discharge Instructions Diet Discharge Diet: Light diet [...] 5 PM and on the weekends call [phone] with any concerns. Test Results: Test results from this visit will be discussed in further detail at your follow-up appointment, if applicable. Discharge Plan Admission Attending Provider: Abbie Philip Primary Care Provider: Care PhysicianJudy Primary Instructions Print Language: Haitian Discharge Orders/Prescriptions Prescriptions: New oxycodone 5 mg [...] No Primary Care Physician Signed Normal [facility] Laboratory - Chemistry and C hemistry - challengeOrdered By: Abbie Philip on 04-04-2025 AST [Catalytic activity/Vol] 30 U/L <38 [facility] Liver Profileon 04-04-2025 Albumin [Mass/Vol] 4.5 g/dL Normal 3.5-5.0 [facility] Comment on above: Performed By: #### L 500.3400 #### [facility] [address] [place], [address] ALK PHOS 58 U/L Normal 40-129 [facility] Comment on above: Performed By: #### L 500.3400 #### [facility] [address] [place], [address] ALT [Catalytic activity/Vol] 44 U/L Normal <=46 [facility] Comment on above: Performed By: #### L 500.3400 #### [facility] [address] [place], [address] AST [Catalytic activity/Vol] 30 U/L Normal <=37 [facility] Comment on above: Performed By: #### L 500.3400 #### [facility] [address] [place], [address] Bilirubin [Mass/Vol] 0.71 mg/dL Normal 0.00-1.30 [facility] Comment on above: Performed By: #### L 500.3400 #### [facility] [address] [place], [address] Bilirubin.direct [Mass/Vol] 0.32 mg/dL High 0.00-0.30 [facility] Comment on above: Performed By: #### L 500.3400 #### [facility] [address] [place], [address] Globulin (S) [Mass/Vol] 3.2 g/dL Normal 2.2-4.2 [facility] Comment on above: Performed By: #### L 500.3400 #### [facility] [address] [place], [address] T PROT 7.7 g/dL Normal 5.9-8.4 [facility] Comment on above: Performed By: #### L 500.3400 #### [facility] [address] [place], [address] MR/POSTOP.ANEon 04-04-2025 MR/POSTOP.ANE [facility] Medical Records Department [address] [place] [address] Anesthesia Postop Eval I 04/04/25 1545 MR#: [id number] Acct: [id number] Name: ALONDRA ARITA Rep #: [id number] : 1975 49 From: Bryson Farzana FLAT SORTING MACHINE CLERK PCP: Care Physician,No Primary Status:REG SDC Y Race: C Location: [place] [address] Anesthesia: Postop Eval I Current Vital Signs [...] completed: Yes 04/04/25 1546 Date Bryson Yanes FLAT SORTING MACHINE CLERK Cosigner Signature: Date CC: Signed Normal [facility] MR/[id number] 04-04-2025 /[facility] Medical Records Department [address] [place] [address] Anesthesia Postop Eval II 04/04/25 1737 MR#: [id number] Acct: [id number] Name: ALONDRA ARITA Rep #: [id number] : 1975 49 From: Armando Gomez MD PCP: Care Physician,No Primary Status:REG SD Y Race: C Location: [place] [address] Anesthesia Postop Eval I Sum Postop Eval Completion status Anesthesia document: Postop Eval 1 completed: Yes Anesthesia Postop Eval I Summary Anesthesia Postop Eval I Summary: Anesthesia Postop Eval I: Assessment Summary Airway patent Yes 04/04/25 15:46 FLAT SORTING MACHINE [email or web address] Spontaneous unlabored Yes 04/04/25 15:46 FLAT SORTING MACHINE CLERK.[email or web address] respirations Mental status Awake,Calm 04/04/25 15:46 FLAT SORTING MACHINE CLERK.[email or web address] nausea No 04/04/25 15:46 FLAT SORTING MACHINE CLERK.[email or web address] Vomiting No 04/04/25 15:46 FLAT SORTING MACHINE [email or web address] Anesthesia Postop Eval I: Fluid Summary Crystalloid volume administer 1,600 04/04/25 15:46 FLAT SORTING MACHINE CLERK.PKEL (ml) Colloids volume administered ( ml) Blood Product volume administered (ml) Total IV fluid infused 1,600 04/04/25 15:46 FLAT SORTING MACHINE [email or web address].[email or web address] Anesthesia Postop Eval I: Summary Notes Anesthesia Complication No 04/04/25 15:46 FLAT SORTING MACHINE CLERK.[email or web address] Anesthesia Complication Comment: Post-operative progress note Anesthesia: Postop Eval II Evaluation Mental status: Awake and Calm Pain Level: 1 nausea: No Vomiting: No Complications Anesthesia Complication: No 04/04/25 1737 Date Armando Gomez MD Cosigner Signature: Date CC: Signed Normal [facility] Operative Reporton 5 Operative Report [facility] Medical Records Department [address] [place] [address] Operative Report 04/04/25 1520 MR#: [id number] Acct: [id number] Name: ALONDRA ARITA Rep #: [id number] : 1975 49 From: Abbie Philip MD PCP: Care Physician,No Primary Status:[facility] Location: [facility] Operative Report (Standard) Operative Information Date of Procedure: 04/04/25 Pre-Operative Diagnosis: Cholelithiasis Post-Operative Diagnosis: Cholelithiasis, hydrops of the gallbladder Surgery/Procedure Performed: Robotic cholecystectomy with attempted cholangiogram/ICG indoor landscape architect: Yes Vehicle Assembler: Sarah Beth Baumann Tasks completed by pediatric assistant: Opening closing Type of Anesthesia: General/Supplemental [...] the supraumbilical site was closed with 2 zozvuj-go-khwrp sutures as well as interrupted 0 Vicryl suture. The skin was closed with sutures of 4-0 Monocryl and Steri-Strips. The patient was extubated. The patient tolerated procedure well and was taken to the postanesthesia care unit in stable condition. Surgical Findings: See operative report Complications Complications: No 04/04/252208 (more content not included)... Normal [facility] Serum globulin measurementOr dered By: [facility] 04-04-2025 Globulin (S) [Mass/Vol] 3.2 g/dL 2.2-4.[address] [facility] Serum or plasma alanine jackson otransferase (ALT) measurementOrdered By: [facility] on 04-04-2025 ALT [Catalytic activity/Vol] 44 U/L <47 [facility] Serum or plasma albumin carlos urement (mass/volume)Ordered By: [facility] 04-04-2025 Albumin [Mass/Vol] 4.5 g/dL 3.5-5.0 [facility] Serum or plasma alkaline julio sphatase measurementOrdered By: [facility] 04-04-2025 ALP [Catalytic activity/Vol] 58 U/L 40-129 [facility] Surgery Specimen Level IIIon 04-04-2025 Surgery Specimen Level III ---- Patient Age/Sex Location Account Attending Physician ---- ALONDRA ARITA 49/M [facility] [id number] Dr. Abbie Philip MD ---- Specimen: [id number] Received: 04/05/25 Status: TACO Davis Num: [id number] Spec Type: VALARIE Barragan Dr: Dr. Abbie Philip MD HEADER OPERATION: Robotic cholecystectomy PRE-OP DIAGNOSIS: Cholelithiasis TISSUE SUBMITTED: A- Gallbladder ---- MICROSCOPIC DIAGNOSIS A. Gallbladder, robotic cholecystectomy: * Acute and chronic cholecystitis * One benign lymph node * Cholelithiasis MICROSCOPIC DESCRIPTION Slides are reviewed. GROSS DESCRIPTION A. Received in formalin labeled with the patient's name and date of . Designated as gallbladder is a 7.4 x 3.5 x 2.5 cm pink-red, fatty and intact gallbladder with attached patent cystic duct (inked black, shaved). A lymph node is present. Opening reveals minimal, brown sludge-like bile and a 2.8 cm yellow, bosselated cholelith. The mucosa is williamson-pink to red granular and eroded with a maximum wall thickness of 0.4 cm. Focal cholesterolosis is present. Conditioning Machine Operator sections are submitted in 2 cassettes as follows: A1: Margin, lymph node, lymph nodeA2: Cross-sections MD 04/05/2025 [facility]:[id number] ---- Patient Age/Sex Location Account Attending Physician ---- ALONDRA ARITA 49/M [facility] [id number] Dr. Abbie Philip MD ---- Signed (signature on file) Dr. Landy Alvarado DO 04/13/25 1552 ---- Normal [facility] Comment on above: Performed By: #### P SUIII ####[facility] [id number] [place], [address] Total proteinOrdered By: David Philip on 04-04-2025 Protein [Mass/Vol] 7.7 g/dL 5.9-8.4 [facility] Surgery Visit Reporton 03-23 Surgery Visit Report [facility] [address] [place] [address] OFFICE VISIT Date of Service: 03/23/25 MR#: [id number] Acct: [id number] Name: ALONDRA ARITA Rep #: [id number] : 1975 Provider: Dr. Abbie gould MD Age/Sex: 49/M Location: [facility] Status: Signed Intake Vital Signs 03/16/25 13:04 [...] No Known Allergies Allergy (Verified 03/23/25 08:51) [facility] Medical History (Updated 03/23/25 @ 16:14 by [...] healthy appearing, comfortable and no acute distress [place] Head: normocephalic and atraumatic Neck Neck: supple [...] M.D. (more content not included)... Normal [facility] Bilirubin directOrdered By: Jose Guadalupe Puckett on 03-18-2025 Bilirubin.direct [Mass/Vol] 0.40 mg/dL High 0.00-0.30 [facility] Bilirubin, totalOrdered By: Jose Guadalupe Puckett on 03-18-2025 Bilirubin [Mass/Vol] 0.85 mg/dL 0.00-1.30 [facility] Discharge Instructionon 02-20 Discharge Instruction [facility] Medical Records Department [address] [place] [address] Instructions for Home/Discharge Instructions 03/18/25 0935 MR#: [id number] Acct: [id number] Name: ALONDRA ARITA Rep #: [id number] : 1975 49 From: Jose Guadalupe Puckett MD PCP: Care Physician,No Primary Status:ADM IN Discharge Instructions DC [...] Alex Instructions Additional Instructions / Restrictions: Advised sirj-ilr-cwozako Tylenol 500 mg to 1000 mg Q6 hourly as needed for fever more than 102 Fahrenheit and moderate to severe pain respectively. Giew-xfk-axqdxte, probiotic, lactobacillus/acidophi tre 1 tablet twice daily [...] 03/18/25 0940 Jose Guadalupe Puckett MD CC: ELECTROMECHANICAL TECHNOLOGIST-C Karlee Green; ELECTROMECHANICAL TECHNOLOGIST-C Apolonia Pavon; Dr. Jose Guadalupe Puckett MD; MERE Robles; No Primary Care Physician; Yevgeniy Sarah DO Signed Normal [facility] Electrocardiogram reportOrde red By: Constantin Acosta on 03-18-2025 EKG study [facility] Cardiovascular Services [address] [place] [address] 12 Lead EKG 03/16/25 1044 MR#: [id number] Acct: [id number] Name: ALONDRA ARITA Rep #:[id number] : 1975 49 From: Constantin Acosta MD Attending Dr: Dr. Jose Guadalupe Puckett MD Status: DIS IN Ordering Dr: Lucretia Bear DO Date: 0 03/16/25 Location: [facility]3 Sex: M C Admitted: 03/16/25 Test Reason : GENERAL Blood Pressure : */* mmHG Vent. Rate : 76 BPM Atrial Rate : 76 BPM P-R Int : 170 ms QRS Dur : 76 ms QT Int : 354 ms P-R-T Axes : 51 18 38 degrees QTcB Int : 398 ms Normal sinus rhythm with sinus arrhythmia Normal ECG Confirmed by CONSTANTIN ACOSTA ([id number]), associate entertainment editor CARI OLIVARES ([id number]) on 03/19/2025 9:11:15 AM Referred By: Confirmed By: CONSTANTIN ACOSTA 03/19/25 09 Date _ Constantin Acosta MD CC: Dr. Lucretia Bear DO; Dr. Jose Guadalupe Puckett MD; No Primary Care Physician ~ Signed [facility] Other Phone: Laboratory - Chemistry and C hemistry - challengeOrdered By: Jose Guadalupe Puckett on 03-18-2025 AST [Catalytic activity/Vol] 222 U/L High <38 [facility] Liver Profileon 03-18-2025 Albumin [Mass/Vol] 3.9 g/dL Normal 3.5-5.0 [facility] Comment on above: Performed By: #### L 500.3400 #### [facility] Laboratory [address] [place], [place], [id number] ALK PHOS 65 U/L Normal 40-129 [facility] Comment on above: Performed By: #### L 500.3400 #### [facility] [address] [place], [place], [id number] ALT [Catalytic activity/Vol] 573 U/L High <=46 [facility] Comment on above: Performed By: #### L 500.3400 #### [facility] [address] [place], [place], [address] AST [Catalytic activity/Vol] 222 U/L High <=37 [facility] Comment on above: Performed By: #### L 500.3400 #### [facility] [address] [place], [address] Bilirubin [Mass/Vol] 0.85 mg/dL Normal 0.00-1.30 [facility] Comment on above: Performed By: #### L 500.3400 #### [facility] [address] [place], [address] Bilirubin.direct [Mass/Vol] 0.40 mg/dL High 0.00-0.30 [facility] Comment on above: Performed By: #### L 500.3400 #### [facility] [address] [place], [address] Globulin (S) [Mass/Vol] 2.7 g/dL Normal 2.2-4.2 [facility] Comment on above: Performed By: #### L 500.3400 #### [facility] [address] [place], [address] T PROT 6.5 g/dL Normal 5.9-8.4 [facility] Comment on above: Performed By: #### L 500.3400 #### [facility] [address] [place], [address] Serum globulin measurementOr dered By: Jose Guadalupe Puckett on 03-18-2025 Globulin (S) [Mass/Vol] 2.7 g/dL 2.2-4.2 [facility] Serum or plasma alanine jackson otransferase (ALT) measurementOrdered By: Jose Guadalupe Puckett on 03-18-2025 ALT [Catalytic activity/Vol] 573 U/L High <47 [facility] Serum or plasma albumin carlos urement (mass/volume)Ordered By: Jose Guadalupe Puckett on 03-18-2025 Albumin [Mass/Vol] 3.9 g/dL 3.5-5.0 [facility] Serum or plasma alkaline julio sphatase measurementOrdered By: Jose Guadalupe Puckett on 03-18-2025 ALP [Catalytic activity/Vol] 65 U/L 40-129 [facility] Total proteinOrdered By: Michael Puckett on 03-18-2025 Protein [Mass/Vol] 6.5 g/dL 5.9-8.4 [facility] Absolute lymphocyte countOrd ered By: Jose Guadalupe Puckett on 03-17-2025 Lymphocytes Auto (Unsp spec) [#/Vol] 1.48 10*3/uL 0.83-4.51 [facility] Absolute neutrophil countOrd ered By: Jose Guadalupe Puckett on 03-17-2025 Neutrophils (Bld) [#/Vol] 9.6 10*3/uL High 2.0-7.7 [facility] Anion gap in Serum or Plasma Ordered By: Jose Guadalupe Puckett on 03-17-2025 Anion gap [Moles/Vol] 13 mmol/L 5-15 [facility] Automated lymphocyte count a s percentage of total leukocytesOrdered By: Jose Guadalupe Puckett on 03-17-2025 Lymphocytes/100 WBC Auto (Unsp spec) 12.9 % Low 19-41 [facility] BUN/creatinine ratioOrdered By: Jose Guadalupe Puckett on 03-17-2025 Urea nitrogen/Creatinine [Mass ratio] 9.9 mg/mg Low 10-20 [facility] Basic Metabolic Profile (BMP )on 03-17-2025 BUN/CRE 9.9 RATIO Low 10-20 [facility] Comment on above: Performed By: #### L 501.2300, L100.0100, L500.2500, L501.5200 #### [facility] [address] [place], [address] Calcium [Mass/Vol] 9.0 mg/dL Normal 7.6-11.0 [facility] Comment on above: Performed By: #### L 501.2300, L100.0100, L500.2500, L501.5200 #### [facility] [address] [place], [address] Chloride [Moles/Vol] 105 mmol/L Normal 98-108 [facility] Comment on above: Performed By: #### L 501.2300, L100.0100, L500.2500, L501.5200 #### [facility] [address] [place], [address] CO2 [Moles/Vol] 19.5 mmol/L Low 21.0-32.0 [facility] Comment on above: Performed By: #### L 501.2300, L100.0100, L500.2500, L501.5200 #### [facility] [address] [place], [address] Creatinine [Mass/Vol] 0.92 mg/dL Normal 0.70-1.20 [facility] Comment on above: Performed By: #### L 501.2300, L100.0100, L500.2500, L501.5200 #### [facility] [address] [place], [address] ECRCL 130.43 ml/min Normal 50-250 [facility] Comment on above: Performed By: #### L 501.2300, L100.0100, L500.2500, L501.5200 #### [facility] [address] [place], [address] GAP 13 Normal 5-15 [facility] Comment on above: Performed By: #### L 501.2300, L100.0100, L500.2500, L501.5200 #### [facility] [address] [place], [address] GFR/1.73 sq M.predicted among non-blacks MDRD (S/P/Bld) [Vol rate/Area] 101 mL/min/{1.73_m2} Normal >60 [facility] Comment on above: Result Comment: mL/m in/1.73m2 CKD-EPI Creatinine Equation (2020) Performed By: #### L 501.2300, L100.0100, L500.2500, L501.5200 #### [facility] [address] [place], [address] Glucose [Mass/Vol] 125 mg/dL High 70-99 [facility] Comment on above: Performed By: #### L 501.2300, L100.0100, L500.2500, L501.5200 #### [facility] [address] [place], [address] Potassium [Moles/Vol] 4.0 mmol/L Normal 3.3-5.1 [facility] Comment on above: Performed By: #### L 501.2300, L100.0100, L500.2500, L501.5200 #### [facility] [address] [place], [address] Sodium [Moles/Vol] 138 mmol/L Normal 133-145 [facility] Comment on above: Performed By: #### L 501.2300, L100.0100, L500.2500, L501.5200 #### [facility] [address] [place], [address] Urea nitrogen [Mass/Vol] 9 mg/dL Normal 4-19 [facility] Comment on above: Performed By: #### L 501.2300, L100.0100, L500.2500, L501.5200 #### [facility] [address] [place], [address] Basophil percentageOrdered B y: Jose Guadalpue Puckett on 03-17-2025 Basophils/100 WBC (Bld) 0.1 % 0-[address] [facility] CBC W/Diff, Automatedon 02-20 Absolute Lymph 1.48 X10 3/uL Normal 0.83-4.51 [facility] Comment on above: Performed By: #### L 501.2300, L100.0100, L500.2500, L501.5200 #### [facility] [address] [place], [address] Absolute Neut 9.6 X10 3/uL High 2.0-7.7 [facility] Comment on above: Performed By: #### L 501.2300, L100.0100, L500.2500, L501.5200 #### [facility] [address] [place], [address] Basophils/100 WBC (Bld) 0.1 % Normal 0-[address] [facility] Comment on above: Performed By: #### L 501.2300, L100.0100, L500.2500, L501.5200 #### [facility] [address] [place], [address] Eosinophils/100 WBC (Bld) 0.0 % Normal 0-5 [facility] Comment on above: Performed By: #### L 501.2300, L100.0100, L500.2500, L501.5200 #### [facility] [address] [place], [address] Erythrocyte distribution width (RBC) [Ratio] 13.2 % Normal 11.6-14.6 [facility] Comment on above: Performed By: #### L 501.2300, L100.0100, L500.2500, L501.5200 #### [facility] [address] [place], [address] Hematocrit (Bld) [Volume fraction] 43.5 % Normal 40-54 [facility] Comment on above: Performed By: #### L 501.2300, L100.0100, L500.2500, L501.5200 #### [facility] [address] [place], [address] Hemoglobin (Bld) [Mass/Vol] 15.2 g/dL Normal 13.0-16.5 [facility] Comment on above: Performed By: #### L 501.2300, L100.0100, L500.2500, L501.5200 #### [facility] [address] [place], [address] IG% 0.400 Normal 0.0-0.9 [facility] Comment on above: Result Comment: IG% - Immature Granulocytes (promyelocytes, myelocytes and metamyelocytes) > 1% indicates that a LEFT SHIFT is Present. Performed By: #### L 501.2300, L100.0100, L500.2500, L501.5200 #### [facility] [address] [place], [address] Lymphocytes/100 WBC (Bld) 12.9 % Low 19-41 [facility] Comment on above: Performed By: #### L 501.2300, L100.0100, L500.2500, L501.5200 #### [facility] [address] [place], [address] MCH (RBC) [Entitic mass] 28.1 pg Normal 27.0-32.0 [facility] Comment on above: Performed By: #### L 501.2300, L100.0100, L500.2500, L501.5200 #### [facility] [address] [place], [address] MCHC (RBC) [Mass/Vol] 34.9 g/dL Normal 32-36 [facility] Comment on above: Performed By: #### L 501.2300, L100.0100, L500.2500, L501.5200 #### [facility] [address] [place], [address] MCV (RBC) [Entitic vol] 80.6 fL Normal 80-[address] [facility] Comment on above: Performed By: #### L 501.2300, L100.0100, L500.2500, L501.5200 #### [facility] [address] [place], [address] Monocytes/100 WBC (Bld) 3.1 % Normal 0-[address] [facility] Comment on above: Performed By: #### L 501.2300, L100.0100, L500.2500, L501.5200 #### [facility] [address] [place], [address] Neutrophils/100 WBC (Bld) 83.5 % High 47-70 [facility] Comment on above: Performed By: #### L 501.2300, L100.0100, L500.2500, L501.5200 #### [facility] [address] [place], [address] Nucleated RBC (Bld) [#/Vol] 0 10*3/uL Normal 0-5 [facility] Comment on above: Performed By: #### L 501.2300, L100.0100, L500.2500, L501.5200 #### [facility] [address] [place], [address] Platelet mean volume (Bld) [Entitic vol] 10.7 fL Normal 6.2-12.0 [facility] Comment on above: Performed By: #### L 501.2300, L100.0100, L500.2500, L501.5200 #### [facility] [address] [place], [address] Platelets (Bld) [#/Vol] 242 10*3/uL Normal 150-450 [facility] Comment on above: Performed By: #### L 501.2300, L100.0100, L500.2500, L501.5200 #### [facility] [address] [place], [address] RBC (Bld) [#/Vol] 5.40 10*6/uL Normal 4.6-6.2 [facility] Comment on above: Performed By: #### L 501.2300, L100.0100, L500.2500, L501.5200 #### [facility] [address] [place], [address] RDW SD 38.0 fl Normal 35.1-43.9 [facility] Comment on above: Performed By: #### L 501.2300, L100.0100, L500.2500, L501.5200 #### [facility] [address] [place], [address] WBC (Bld) [#/Vol] 11.5 10*3/uL High 4.4-11.0 [facility] Comment on above: Performed By: #### L 501.2300, L100.0100, L500.2500, L501.5200 #### [facility] [address] [place], [address] Carbon dioxide, total [Moles /volume] in Central venous bloodOrdered By: Jose Guadalupe Puckett on 03-17-2025 CO2 [Moles/Vol] 19.5 mmol/L Low 21.0-32.0 [facility] Chloride assayOrdered By: Gillian Puckett on 03-17-2025 Chloride [Moles/Vol] 105 mmol/L 98-108 [facility] Eosinophil percentageOrdered By: Jose Guadalupe Puckett on 03-17-2025 Eosinophils/100 WBC (Bld) 0.0 % 0-5 [facility] Erythrocyte distribution wid th ratioOrdered By: Jose Guadalupe Puckett on 03-17-2025 Erythrocyte distribution width (RBC) [Ratio] 13.2 % 11.6-14.6 [facility] Erythrocyte distribution wid th standard deviationOrdered By: Jose Guadalupe Puckett on 03-17-2025 Erythrocyte distribution width (RBC) [Ratio] 38.0 fl 35.1-43.9 [facility] Glomerular filtration rate ( GFR) estimation/1.73 sq m using serum, plasma, or whole bOrdered By: Jose Guadalupe Puckett on 03-17-2025 GFR/1.73 sq M.predicted among non-blacks MDRD (S/P/Bld) [Vol rate/Area] 101 mL/min/{1.73_m2} >60 [facility] Comment on above: mL/min/1.73m2 CKD-EP I Creatinine Equation (2020) Hematocrit Auto (Bld) [Volum e fraction]Ordered By: Jose Guadalupe Puckett on 03-17-2025 Hematocrit (Bld) [Volume fraction] 43.5 % 40-54 [facility] Hemoglobin measurementOrdere d By: Jose Guadalupe Puckett on 03-17-2025 Hemoglobin (Bld) [Mass/Vol] 15.2 g/dL 13.0-16.5 [facility] Immature granulocytes/100 WB C Auto (Bld)Ordered By: Jose Guadalupe Puckett on 03-17-2025 Immature granulocytes/100 WBC (Bld) 0.400 % 0.0-0.9 [facility] Comment on above: IG% - Immature Granu locytes (promyelocytes, myelocytes and metamyelocytes) > 1% indicates that a LEFT SHIFT is Present. Liver Profileon 03-17-2025 ALT [Catalytic activity/Vol] 865 U/L High <=46 [facility] Comment on above: Performed By: #### L 501.2300, L100.0100, L500.2500, L501.5200 #### [facility] [address] [place], [place] [address] [place], [address] MCV (mean corpuscular volume ) determinationOrdered By: Jose Guadalupe Puckett on 03-17-2025 MCV (RBC) [Entitic vol] 80.6 fL 80-[address] [facility] Mean corpuscular hemoglobin (MCH) determinationOrdered By: Jose Guadalupe Puckett on 03-17-2025 MCH (RBC) [Entitic mass] 28.1 pg 27.0-32.0 [facility] Mean corpuscular hemoglobin concentration (MCHC) determinationOrdered By: Jose Guadalupe Puckett on 03-17-2025 MCHC (RBC) [Mass/Vol] 34.9 g/dL 32-36 [facility] Mean platelet volume determi nationOrdered By: Jose Guadalupe Puckett on 03-17-2025 Platelet mean volume (Bld) [Entitic vol] 10.7 fL 6.2-12.0 [facility] Monocyte percentageOrdered B y: Jose Guadalupe Puckett on 03-17-2025 Monocytes/100 WBC (Bld) 3.1 % 0-[address] [facility] Neutrophil percentageOrdered By: Jose Guadalupe Puckett on 03-17-2025 Neutrophils/100 WBC (Bld) 83.5 % High 47-70 [facility] Nucleated red blood cell per centageOrdered By: Jose Guadalupe Puckett on 03-17-2025 Nucleated RBC/100 WBC (Bld) [Ratio] 0 % 0-5 [facility] Platelet countOrdered By: Gillian Puckett on 03-17-2025 Platelets (Bld) [#/Vol] 242 10*3/uL 150-450 [facility] Potassium measurement (mass/ volume)Ordered By: Jose Guadalupe Puckett on 03-17-2025 Potassium (Unsp spec) [Mass/Vol] 4.0 mmol/L 3.3-5.1 [facility] RBC Auto (Bld) [#/Vol]Ordere d By: Jose Guadalupe Puckett on 03-17-2025 RBC (Bld) [#/Vol] 5.40 10*6/uL 4.6-6.2 [facility] Serum creatinine measurement (mass/volume)Ordered By: Jose Guadalupe Puckett on 03-17-2025 Creatinine [Mass/Vol] 0.92 mg/dL 0.70-1.20 [facility] Serum glucose measurement (m ass/volume)Ordered By: Jose Guadalupe Puckett on 03-17-2025 Glucose [Mass/Vol] 125 mg/dL High 70-99 [facility] Serum or plasma calcium carlos urement (mass/volume)Ordered By: Jose Guadalupe Puckett on 03-17-2025 Calcium [Mass/Vol] 9.0 mg/dL 7.6-11.0 [facility] Serum or plasma urea nitroge n measurement (mass/volume)Ordered By: Jose Guadalupe Puckett on 03-17-2025 Urea nitrogen [Mass/Vol] 9 mg/dL 4-19 [facility] Sodium levelOrdered By: Yury Puckett on 03-17-2025 Sodium [Moles/Vol] 138 mmol/L 133-145 [facility] White blood cell (WBC) count Ordered By: Jose Guadalupe Puckett on 03-17-2025 WBC (Bld) [#/Vol] 11.5 10*3/uL High 4.4-11.0 [facility] 12 Lead EKGon 03-16-2025 12 Lead EKG [facility] Cardiovascular Services [address] [place] [address] 12 Lead EKG 03/16/25 1044 MR#: [id number] Acct: [id number] Name: ALONDRA ARITA Rep #: [id number] : 1975 49 From: Constantin Acosta MD Attending Dr: Dr. Jose Guadalupe Puckett MD Status: DIS IN Ordering Dr: Lucretia Bear DO Date: 03/16/25 Location: [facility] Sex: M C Admitted: 03/16/25 Test Reason [...] Normal ECG Confirmed by CONSTANTIN ACOSTA ([id number]), associate entertainment editor CARI OLIVARES ([id number]) on 03/19/2025 9:11:15 AM Referred By: Confirmed By: CONSTANTIN ACOSTA 03/19/25910 Date Constantin Acosta MD CC: Dr. Lucretia Bear DO; Dr. Jose Guadalupe Puckett MD; No Primary Care Physician Signed Normal [facility] Bilirubin Test strip Ql (U)O rdered By: Lucretia Bear on 03-16-2025 Bilirubin Ql (U) Negative Negative [facility] Bilirubin, Directon 03-16-20 Bilirubin.direct [Mass/Vol] 0.73 mg/dL High 0.00-0.30 [facility] Comment on above: Result Comment: Hemo lysis present, Results??could be affected. ?? Performed By: #### L 501.2300, L100.0100, L500.2500, L501.5200 #### [facility] [address] [place], [address] CBC W/Diff, Automatedon 02-20 Absolute Lymph 1.58 X10 3/uL Normal 0.83-4.51 [facility] Comment on above: Performed By: #### L 501.2450, L100.0100, L500.4050 ####[facility] [address] [place], [address] Absolute Neut 6.8 X10 3/uL Normal 2.0-7.7 [facility] Comment on above: Performed By: #### L 501.2450, L100.0100, L500.4050 ####[facility] [address] [place], [address] Basophils/100 WBC (Bld) 0.4 % Normal 0-[address] [facility] Comment on above: Performed By: #### L 501.2450, L100.0100, L500.4050 ####[facility] [address] [place], [address] Eosinophils/100 WBC (Bld) 1.0 % Normal 0-5 [facility] Comment on above: Performed By: #### L 501.2450, L100.0100, L500.4050 ####[facility] [address] [place], [address] Erythrocyte distribution width (RBC) [Ratio] 12.7 % Normal 11.6-14.6 [facility] Comment on above: Performed By: #### L 501.2450, L100.0100, L500.4050 ####[facility] [address] [place], [address] Hematocrit (Bld) [Volume fraction] 48.0 % Normal 40-54 [facility] Comment on above: Performed By: #### L 501.2450, L100.0100, L500.4050 ####[facility] [address] [place], [address] Hemoglobin (Bld) [Mass/Vol] 17.0 g/dL High 13.0-16.5 [facility] Comment on above: Performed By: #### L 501.2450, L100.0100, L500.4050 ####[facility] [address] [place], [address] IG% 0.400 Normal 0.0-0.9 [facility] Comment on above: Result Comment: IG% - Immature Granulocytes (promyelocytes, myelocytes and metamyelocytes) > 1% indicates that a LEFT SHIFT is Present. Performed By: #### L 501.2450, L100.0100, L500.4050 ####[facility] [address] [place], [address] Lymphocytes/100 WBC (Bld) 17.5 % Low 19-41 [facility] Comment on above: Performed By: #### L 501.2450, L100.0100, L500.4050 ####[facility] [address] [place], [address] MCH (RBC) [Entitic mass] 28.7 pg Normal 27.0-32.0 [facility] Comment on above: Performed By: #### L 501.2450, L100.0100, L500.4050 ####[facility] [address] [place], [address] MCHC (RBC) [Mass/Vol] 35.4 g/dL Normal 32-36 [facility] Comment on above: Performed By: #### L 501.2450, L100.0100, L500.4050 ####[facility] [address] [place], [address] MCV (RBC) [Entitic vol] 80.9 fL Normal 80-[address] [facility] Comment on above: Performed By: #### L 501.2450, L100.0100, L500.4050 ####[facility] [address] [place], [address] Monocytes/100 WBC (Bld) 4.8 % Normal 0-[address] [facility] Comment on above: Performed By: #### L 501.2450, L100.0100, L500.4050 ####[facility] [address] [place], [address] Neutrophils/100 WBC (Bld) 75.9 % High 47-70 [facility] Comment on above: Performed By: #### L 501.2450, L100.0100, L500.4050 ####[facility] [address] [place], [address] Nucleated RBC (Bld) [#/Vol] 0 10*3/uL Normal 0-5 [facility] Comment on above: Performed By: #### L 501.2450, L100.0100, L500.4050 ####[facility] [address] [place], [address] Platelet mean volume (Bld) [Entitic vol] 10.6 fL Normal 6.2-12.0 [facility] Comment on above: Performed By: #### L 501.2450, L100.0100, L500.4050 ####[facility] [address] [place], [address] Platelets (Bld) [#/Vol] 237 10*3/uL Normal 150-450 [facility] Comment on above: Performed By: #### L 501.2450, L100.0100, L500.4050 ####[facility] [address] [place], [address] RBC (Bld) [#/Vol] 5.93 10*6/uL Normal 4.6-6.2 [facility] Comment on above: Performed By: #### L 501.2450, L100.0100, L500.4050 ####[facility] [address] [place], [address] RDW SD 37.0 fl Normal 35.1-43.9 [facility] Comment on above: Performed By: #### L 501.2450, L100.0100, L500.4050 ####[facility] [address] [place], [address] WBC (Bld) [#/Vol] 9.0 10*3/uL Normal 4.4-11.0 [facility] Comment on above: Performed By: #### L 501.2450, L100.0100, L500.4050 ####[facility] [address] [place], [address] CT Abd/Pelvis W/WO Contrasto n 03-16-2025 CT Abd/Pelvis W/WO Contrast [facility] Imaging Services [address] [place] [address] CT Abd/Pelvis W/WO Contrast MR#: [id number] Acct: [id number] Name: ALONDRA ARITA Rep #: [id number] : 1975 M 49 From: Justo Ortega MD PCP: Care Physician,No Primary Status: ADM IN Study: CT Abd/Pelvis W/WO Contrast Date of Exam: 02/20 12/13 Exam# [id number] Ordering Dr: Jose Guadalupe Puckett MD PROCEDURE: [...] to confirm stability possibly helpful. Reading Location: [id number] CC: Dr. Jose Guadalupe Puckett MD; No Primary Care Physician Life Sciences Teacher: Signed Normal [facility] Comprehensive Metabolic Prof ilon 03-16-2025 Albumin [Mass/Vol] 4.7 g/dL Normal 3.5-5.0 [facility] Comment on above: Performed By: #### L 501.2450, L100.0100, L500.4050 ####[facility] [address] [place], [address] Albumin/Globulin [Mass ratio] 1.6 {ratio} Normal 0.9-2.4 [facility] Comment on above: Performed By: #### L 501.2450, L100.0100, L500.4050 ####[facility] [address] [place], [address] ALK PHOS 64 U/L Normal 40-129 [facility] Comment on above: Performed By: #### L 501.2450, L100.0100, L500.4050 ####[facility] [address] [place], [address] ALT [Catalytic activity/Vol] 370 U/L High <=46 [facility] Comment on above: Performed By: #### L 501.2450, L100.0100, L500.4050 ####[facility] [address] [place], [address] AST [Catalytic activity/Vol] 525 U/L High <=37 [facility] Comment on above: Result Comment: Hemo lysis present, Results??could be affected. ?? Performed By: #### L 501.2450, L100.0100, L500.4050 ####[facility] [address] [place], [address] Bilirubin [Mass/Vol] 1.60 mg/dL High 0.00-1.30 [facility] Comment on above: Performed By: #### L 501.2450, L100.0100, L500.4050 ####[facility] [address] [place], [address] BUN/CRE 13.1 RATIO Normal 10-20 [facility] Comment on above: Performed By: #### L 501.2450, L100.0100, L500.4050 ####[facility] [address] [place], [address] Calcium [Mass/Vol] 10.4 mg/dL Normal 7.6-11.0 [facility] Comment on above: Performed By: #### L 501.2450, L100.0100, L500.4050 ####[facility] [address] [place], [address] Chloride [Moles/Vol] 104 mmol/L Normal 98-108 [facility] Comment on above: Performed By: #### L 501.2450, L100.0100, L500.4050 ####[facility] [address] [place], [address] CO2 [Moles/Vol] 20.3 mmol/L Low 21.0-32.0 [facility] Comment on above: Performed By: #### L 501.2450, L100.0100, L500.4050 ####[facility] [address] [place], [address] Creatinine [Mass/Vol] 1.02 mg/dL Normal 0.70-1.20 [facility] Comment on above: Performed By: #### L 501.2450, L100.0100, L500.4050 ####[facility] [address] [place], [address] ECRCL 102.77 ml/min Normal 50-250 [facility] Comment on above: Performed By: #### L 501.2450, L100.0100, L500.4050 ####[facility] [address] [place], [address] GAP 14 Normal 5-15 [facility] Comment on above: Performed By: #### L 501.2450, L100.0100, L500.4050 ####[facility] [address] [place], [address] GFR/1.73 sq M.predicted among non-blacks MDRD (S/P/Bld) [Vol rate/Area] 90 mL/min/{1.73_m2} Normal >60 [facility] Comment on above: Result Comment: mL/m in/1.73m2 CKD-EPI Creatinine Equation (2020) Performed By: #### L 501.2450, L100.0100, L500.4050 ####[facility] [address] [place], [address] Globulin (S) [Mass/Vol] 2.9 g/dL Normal 2.2-4.2 [facility] Comment on above: Performed By: #### L 501.2450, L100.0100, L500.4050 ####[facility] [address] [place], [address] Glucose [Mass/Vol] 118 mg/dL High 70-99 [facility] Comment on above: Performed By: #### L 501.2450, L100.0100, L500.4050 ####[facility] [address] [place], [address] Potassium [Moles/Vol] 4.2 mmol/L Normal 3.3-5.1 [facility] Comment on above: Result Comment: Hemo lysis present, Results??could be affected. ?? Performed By: #### L 501.2450, L100.0100, L500.4050 ####[facility] [address] [place], [address] Sodium [Moles/Vol] 138 mmol/L Normal 133-145 [facility] Comment on above: Performed By: #### L 501.2450, L100.0100, L500.4050 ####[facility] [address] [place], [address] T PROT 7.5 g/dL Normal 5.9-8.4 [facility] Comment on above: Performed By: #### L 501.2450, L100.0100, L500.4050 ####[facility] [address] [place], [address] Urea nitrogen [Mass/Vol] 13 mg/dL Normal 4-19 [facility] Comment on above: Performed By: #### L 501.2450, L100.0100, L500.4050 ####[facility] [address] [place], [address] ERCP Biliary Onlyon 03-16-20 ERCP Biliary Only [facility] Imaging Services [address] [place] [address] ERCP Biliary Only MR#: [id number] Acct: [id number] Name: ALONDRA ARITA Rep #: [id number] : 1975 M 49 From: Chino Elliott MD PCP: Care Physician,No Primary Status: ADM IN Study: ERCP Biliary Only Date of Exam: 03/16/25 Exam# [id number] Ordering Dr: Yevgeniy Sarah DO EXAM: ERCP [...] status post ERCP, as above. Reading Location: [id number] CC: No Primary Care Physician; Yevgeniy Sarah DO Life Sciences Teacher: Signed Normal [facility] ERCP Reporton 03-16-2025 ERCP Report [facility] Medical Records Department [address] [place] [address] ERCP Report MR#: [id number] Acct: [id number] Name: ALONDRA ARITA Rep #: [id number] : 1975 49 From: Yevgeniy Sarah DO [...] hours 19 minutes 10 seconds Findings: The rn progressive care unit film was normal. The esophagus was successfully [...] was (more content not included)... Normal [facility] Emergency Department Summary on 03-16-2025 Emergency Department Summary [facility] Medical Records Department [address] [place] [address] Emergency Department Summary 03/16/25 MR#: [id number] Acct: [id number] Name: ALONDRA ARITA Rep #: [id number] : 1975 49 From: Lucretia Bear DO PCP: Care Physician,No Primary Status:ADM IN Location: [facility] [id number] HPI HPI - GI History of Present [...] other complaints or concerns at this time [facility] Medical History GERD (gastroesophageal reflux disease) Medical History no medical history Allergy/AdvReac Type Severity Reaction Status Date / Time No Known Allergies Allergy Verified 03/16/25 13:09 Social History Smoking Status: Never smoker [facility] ED Constitutional Constitutional ED: Denies chills or [...] abn (more content not included)... Normal [facility] Gallbladderon 03-16-2025 Gallbladder [facility] Imaging Services [address] [place] [id number] Gallbladder MR#: [id number] Acct: [id number] Name: ALONDRA ARITA Rep #: [id number] : 1975 M 49 From: Farzana Early MD PCP: Care Physician,No Primary Status: REG ER Study: Gallbladder Date of Exam: 03/16/25 Exam# [id number] Ordering Dr: Lucretia Bear DO PROCEDURE: GALLBLADDER [...] an obstructing lesion seen. Reading Location: [facility] CC: Dr. Lucretia Bear, DO; No Primary Care Physician Life Sciences Teacher: Signed Normal [facility] H AND P Exam - Hospitaliston 03-16-2025 H&P Exam - Hospitalist [facility] Medical Records Department [address] [place] [address] H P Exam - Hospitalist 03/16/25 1334 MR#: [id number] Acct: [id number] Name: ALONDRA ARITA Rep #: [id number] : 1975 49 From: Jose Guadalupe Puckett MD PCP: Care Physician,No Primary Status:ADM IN Location: [facility] DW021-5 HPI - General General Date of Admission: [...] dilatation, liver lesion, described in assessment plan. [facility] Medical History GERD (gastroesophageal reflux disease) Medical [...] 75.9 H, Lymph % (Auto) 17.5 L, Coamo % (Auto) 4.8, Eos % (Auto) 1.0, Baso % (Auto) 0.4, Ab (more content not included)... Normal [facility] International normalized rat io (INR) calculationOrdered By: Jose Guadalupe Puckett on 03-16-2025 INR Coag (Bld) [Relative time] 1.0 {INR} [facility] Ketones Test strip Ql (U)Ord ered By: Lucretia Bear on 03-16-2025 Ketones Ql (U) Negative Negative [facility] Lipaseon 03-16-2025 Lipase [Catalytic activity/Vol] 50 U/L Normal 13-75 [facility] Comment on above: Result Comment: Cris elizalde note: LIPASE revised reference range effective 22. New Lipase methodology. Expected to produce lower values than the previous assay method. NEW Reference Range: 13 - 75 U/L Performed By: #### L 501.2450, L100.0100, L500.4050 ####[facility] [address] [place], [address] Lipase measurementOrdered By : Lucretia Bear on 03-16-2025 Lipase [Catalytic activity/Vol] 50 U/L 13-75 [facility] Comment on above: Please note:LIPASE r evised reference range effective 22. New Lipase methodology. Expected to produce lower values than the previous assay method. NEW Reference Range: 13 - 75 U/L MR/CON.PCM.GIon 03-16-2025 MR/CON.PCM.GI [facility] Medical Records Department [address] [place] [address] Consultation - 03/16/25 1537 MR#: [id number] Acct: [id number] Name: ALONDRA ARITA Rep #: [id number] : 1975 49 From: Yevgeniy Friend DO PCP: Care Physician,No Primary Status:ADM IN Location: [facility] VE840-5 HPI Consult Data Date of Consult: 03/16/25 [...] 75.9 H, Lymph % (Auto) 17.5 L, Coamo % (Auto) 4.8, Eos % (Auto) 1.0, [...] Sl. Cloudy, Urine pH 6.0, Ur Specific Bentley 1.010, Urine Protein Negative, Urine Glucose (UA) [...] without an obstructing lesion seen. Reading Location: [id number] Abdomen/Pelvis CT 03/16/25 12:05 IMPRESSION: Fatty liver. Well-defined lesion right lobe of liver favor focal nodular hyperplasia. Follow-up MR of the abdomen with Eovist in 4-6 months to confirm (more content not included)... Normal [facility] MR/OP.KEVINATokrzysztof 03-16-2025 MR/OP.[facility] Medical Records Department [address] [place] [address] Provation Physician Letter MR#: [id number] Acct: [id number] Name: ALONDRA ARITA Rep #: [id number] : 1975 49 From: Yevgeniy Sarah DO PCP: Care Physician,No Primary Status:ADM IN 03/16/2025 No Primary Care Physician Re : ERCP procedure for Alondra Arita Dear Care Physician This procedure was performed on Sunday, March 16, 2025. My impressions and recommendations [...] been signed electronically. 03/16/25 1635 Date Yevgeniy Sarah DO Cosigner Signature: Date (if indicated) CC: PORSCHE Green; PORSCHE Pavon; Dr. Jose Guadalupe Puckett MD; MERE Robles; No Primary Care Physician; Yevgeniy Sarah DO Date Dictated: 03/16/25 1524 Date Transcribed: Life Sciences Teacher: REID Signed [facility] MR/POSTOP.ANEon 03-16-2025 MR/POSTOP.[facility] Medical Records Department [address] [place] [address] Anesthesia Postop Eval I 03/16/25 1638 MR#: [id number] Acct: [id number] Name: ALONDRA ARITA Rep #: [id number] : 1975 49 From: Rich Polo MD PCP: Care Physician,No Primary Status:DIS IN Y Race: C Location: [place] [address]-1 Anesthesia: Postop Eval I Current Vital Signs Temperature: 97.7 F Pulse Rate: 76 Blood Pressure: 95/52 Respiratory Rate: 16 Pulse Ox: 93 Oxygen Delivery Method: Room Air Assessment Airway patent: Yes Spontaneous unlabored respirations: Yes nausea: No Vomiting: No Anesthesia Complication: No Fluid Hydration Crystalloid volume administer (ml): 400 Total IV fluid infused: 400 Progress Note Anesthesia document: Postop Eval 1 completed: Yes 03/20/25855 Date Rich Polo MD 03/26/2524 Cosigner Signature: Date Dusty Wilson CRNA CC: Signed [facility] MR/IUMEDXTX7lt 03-16-2025 MR/POSTOPAN2 [facility] Medical Records Department [address] [place] [address] Anesthesia Postop Eval II 03/16/25 1655 MR#: [id number] Acct: [id number] Name: ALONDRA ARITA Rep #: [id number] : 1975 49 From: Armando Gomez MD PCP: Care Physician,No Primary Status:ADM IN Y Race: C Location: [place] [address]-1 Anesthesia Postop Eval I Sum Anesthesia Postop [...] No Vomiting: No Complications Anesthesia Complication: No 03/16/25 1655 Date Armando Gomez MD Cosigner Signature: Date CC: Signed Normal [facility] Microscopic analysis of urin e for red blood cells (RBC)Ordered By: Lucretia Bear on 03-16-2025 Microscopic analysis of urine for red blood cells (RBC) 0 SEEN /hpf 0-5 [facility] Mucus LM Ql (Urine sed)Order ed By: Lucretia Bear on 03-16-2025 Mucus Ql (Urine sed) 0 SEEN /hpf [facility] Nitrite Test strip Ql (U)Ord ered By: Lucretia Bear on 03-16-2025 Nitrite Ql (U) Negative Negative [facility] O.R. Fluoro for C-Bentley 02-20 O.R. Fluoro for C-Arm [facility] Imaging Services [address] [place], [place] [id number] O.R. Fluoro for C-Arm MR#: [id number] Acct: [id number] Name: ALONDRA ARITA Rep #: [id number] : 1975 M 49 From: Chino Elliott MD PCP: Care Physician,No Primary Status: ADM IN Study: O.R. Fluoro for C-Arm Date of Exam: 03/16/25 Exam# [id number] Ordering Dr: Yevgeniy Sarah DO EXAM: ERCP [...] status post ERCP, as above. Reading Location: [id number]-[id number] CC: No Primary Care Physician; Yevgeniy Sarah DO Life Sciences Teacher: Signed Normal [facility] Protein Test strip Ql (U)Ord ered By: Lucretia Bear on 03-16-2025 Protein Ql (U) Negative Negative [facility] Prothrombin Time w/INRon INR Coag (PPP) [Relative time] 1.0 {INR} Normal [facility] Comment on above: Performed By: #### L 300.3900 ####[facility] [address] [place], [address] PT Coag (PPP) [Time] 13.3 s Normal 11.7-14.9 [facility] Comment on above: Performed By: #### L 300.3900 ####[facility] [address] [place], [address] Prothrombin timeOrdered By: Jose Guadalupe Puckett on 03-16-2025 PT Coag (PPP) [Time] 13.3 s 11.7-14.9 [facility] Serum or plasma albumin/glob ulin mass ratioOrdered By: Lucretia Bear on 03-16-2025 Albumin/Globulin [Mass ratio] 1.6 {ratio} 0.9-2.4 [facility] Squamous epithelial cells de tection in urine sediment by light microscopyOrdered By: Lucretia Bear on 03-16-2025 Epithelial cells.squamous LM Ql (Urine sed) 0 SEEN /hpf 0-5 [facility] Urinalysis, Completeon 03-16 BACTERIA 0 SEEN Normal None Seen [facility] Comment on above: Order Comment: HOA CTOR TO SPECIFY Performed By: #### L 400.0001 #### [facility] [address] [place], [address] EPI,SQUAMOUS 0 SEEN Normal 0-5 [facility] Comment on above: Order Comment: HOA CTOR TO SPECIFY Performed By: #### L 400.0001 #### [facility] [address] [place], [address] Mucus Ql (Urine sed) 0 SEEN Normal [facility] Comment on above: Order Comment: HOA CTOR TO SPECIFY Performed By: #### L 400.0001 #### [facility] [address] [place], [address] RBC 0 SEEN Normal 0-[address] [place] [address] Comment on above: Order Comment: HOA CTOR TO SPECIFY Performed By: #### L 400.0001 #### [facility] [address] [place], [address] WBC 0 SEEN Normal 0-[address] [place] [address] Comment on above: Order Comment: HOA CTOR TO SPECIFY Performed By: #### L 400.0001 #### [facility] [address] [place], [address] Urine clarityOrdered By: Celestina Bear on 03-16-2025 Clarity (U) Sl. Cloudy Clear [facility] Urine color determinationOrd ered By: Lucretia Bear on 03-16-2025 Color (U) Yellow Yellow [facility] Urine glucose detectionOrder ed By: Lucretia Bear on 03-16-2025 Glucose Ql (U) Normal mg/dl Normal [facility] Urine leukocyte esterase det ection by dipstickOrdered By: Lucretia Bear on 03-16-2025 Leukocyte esterase Test strip Ql (U) Negative Negative [facility] Urine pHOrdered By: Lucretia henry on 03-16-2025 pH (U) 6.0 [pH] 5.0 - 8.0 [facility] Urine sediment bacteria coun t by microscopy (number/high power field)Ordered By: Lucretia Bear on 03-16-2025 Bacteria LM.HPF (Urine sed) [#/Area] 0 /[HPF] None Seen [facility] Urine specific gravity measu rementOrdered By: Lucretia Bear on 03-16-2025 Specific gravity (U) [Rel density] 1.010 1.002-1.030 [facility] Urine urobilinogen measureme ntOrdered By: Lucretia Bear on 03-16-2025 Urobilinogen Ql (U) Normal mg/dl Normal [facility] White blood cell countOrdere d By: Lucretia Bear on 03-16-2025 White blood cell count 0 SEEN /hpf 0-[address] [facility] Vital Signs Date Time Vital Sign Value Performing Clinician Faci lity 04-15-2025 13:18-0400 Body temperature 98 [degF] No Primary Care Physician [facility] 04-15-2025 13:18-0400 Diastolic blood pressure 76 mm[Hg] No Primary Care Physician [facility] 04-15-2025 13:18-0400 Heart rate 77 /min No Primary Care Physician [facility] 04-15-2025 13:18-0400 Respiratory rate 16 /min No Primary Care Physician [facility] 04-15-2025 13:18-0400 SaO2% (BldA) [Mass fraction] 96 % No Primary Care Physician [facility] 04-15-2025 13:18-0400 Systolic blood pressure 110 mm[Hg] No Primary Care Physician [facility] 04-13-2025 12:43-0400 Body height 172.72 cm No Primary Care Physician [facility] 04-13-2025 12:43-0400 Body weight 101.2 kg No Primary Care Physician [facility] 04-07-2025 17:56-0400 Body mass index (BMI) [Ratio] 33.9 kg/m2 No Primary Care Physician [facility] 04-04-2025 18:35-0400 Body temperature 97 [degF] No Primary Care Physician [facility] 04-04-2025 18:35-0400 Diastolic blood pressure 78 mm[Hg] No Primary Care Physician [facility] 04-04-2025 18:35-0400 Heart rate 85 /min No Primary Care Physician [facility] 04-04-2025 18:35-0400 Respiratory rate 16 /min No Primary Care Physician [facility] 04-04-2025 18:35-0400 SaO2% (BldA) [Mass fraction] 93 % No Primary Care Physician [facility] 04-04-2025 18:35-0400 Systolic blood pressure 116 mm[Hg] No Primary Care Physician [facility] 04-04-2025 16:30-0400 Inhaled oxygen flow rate 2 L/min No Primary Care Physician [facility] 04-04-2025 12:47-0400 Body mass index (BMI) [Ratio] 34.9 kg/m2 No Primary Care Physician [facility] 04-04-2025 12:47-0400 Body weight 101 kg No Primary Care Physician [facility] 03-23-2025 08:49-0400 Body height 170.18 cm No Primary Care Physician [facility] 03-23-2025 08:49-0400 Body mass index (BMI) [Ratio] 36.2 kg/m2 No Primary Care Physician [facility] 03-23-2025 08:49-0400 Body temperature 97.2 [degF] No Primary Care Physician [facility] 03-23-2025 08:49-0400 Body weight 105 kg No Primary Care Physician [facility] 03-23-2025 08:49-0400 Diastolic blood pressure 74 mm[Hg] No Primary Care Physician [facility] 03-23-2025 08:49-0400 Heart rate 78 /min No Primary Care Physician [facility] 03-23-2025 08:49-0400 Respiratory rate 18 /min No Primary Care Physician [facility] 03-23-2025 08:49-0400 SaO2% (BldA) [Mass fraction] 99 % No Primary Care Physician [facility] 03-23-2025 08:49-0400 Systolic blood pressure 108 mm[Hg] No Primary Care Physician [facility] 03-20-2025 08:56-0400 Body temperature 97.7 [degF] No Primary Care Physician [facility] 03-20-2025 08:56-0400 Diastolic blood pressure 52 mm[Hg] No Primary Care Physician [facility] 03-20-2025 08:56-0400 Heart rate 76 /min No Primary Care Physician [facility] 03-20-2025 08:56-0400 Respiratory rate 16 /min No Primary Care Physician [facility] 03-20-2025 08:56-0400 SaO2% (BldA) [Mass fraction] 93 % No Primary Care Physician [facility] 03-20-2025 08:56-0400 Systolic blood pressure 95 mm[Hg] No Primary Care Physician [facility] 03-18-2025 06:00-0400 Body mass index (BMI) [Ratio] 26 kg/m2 No Primary Care Physician [facility] 03-18-2025 06:00-0400 Body weight 107.2 kg No Primary Care Physician [facility] 03-16-2025 13:04-0400 Body height 203.2 cm No Primary Care Physician [facility] Encounters Encounter Date Encounter Type Care Provider Facility Start: 06-04-2025 ambulatory [facility] Facilit y:[facility] Start: 05-15-2025 ambulatory No Primary Car e Physician Facility:[facility] Start: 04-25-2025 End: 04-25-2025 ambulatory No Primary Care Physician Facility:[facility] Start: 04-23-2025 End: 04-23-2025 ambulatory [facility] Facility:[facility] Start: 04-15-2025 Non-patient / Non-visit Dr. Mateo Daniel MD -[facility] Start: 04-14-2025 Non-patient / Non-visit Dr. Mateo Daniel MD [facility] Start: 04-13-2025 Non-patient / Non-visit Dr. Justo Max MD -[facility] Start: 04-12-2025 Non-patient / Non-visit Yamini Ojeda [facility] Start: 04-11-2025 Non-patient / Non-visit Yamini Ojeda [facility]- -[facility] Start: 04-10-2025 Non-patient / Non-visit Yamini Ojeda [facility]- -[facility] Start: 04-09-2025 ambulatory Abbie Philip Facilit y:[facility] Start: 04-09-2025 End: 04-15-2025 Evaluation and management of inpatient Dr. Abbie Philip MD -[facility] 3 Work Phone: Start: 04-09-2025 Non-patient / Non-visit Dr. Abbie stewart MD -[facility] Start: 04-08-2025 Non-patient / Non-visit Dr. Abbie stewart MD -[facility] Start: 04-07-2025 ambulatory Abbie Philip Facilit y:[facility] Start: 04-07-2025 [facility] / [facility] Start: 04-04-2025 End: 04-04-2025 Admission to same day surgery center Dr. Abbie Philip MD -[facility] Start: 04-04-2025 End: 04-04-2025 ambulatory No Primary Care Physician -[facility] Start: 04-04-2025 Non-patient / Non-visit Dr. Abbie stewart MD -[facility] Start: 03-23-2025 End: 03-23-[address] Abbie Philip MD -[facility] Work Phone: Start: 03-23-2025 End: 03-23-2025 ambulatory No Primary Care Physician [facility] Start: 03-18-2025 Non-patient / Non-visit Dr. Jose Guadalupe [facility] Work Phone: Start: 03-17-2025 Non-patient / Non-visit Dr. Jose Guadalupe [facility] Work Phone: Start: 03-16-2025 Non-patient / Non-visit Yevgeniy Soliman nd, DO [facility] Start: 03-16-2025 Non-patient / Non-visit Dr. Jose Guadalupe [facility] Work Phone: Start: 03-16-2025 ambulatory Jose Guadalupe Puckett Facility: [facility] Start: 03-16-2025 End: 03-18-2025 Evaluation and management of inpatient Dr. Jose Guadalupe Italo MD -Medical Surgical 3 Work Phone: Procedures Date Procedure Procedure Detail Performing Clinician Start: 04-13-2025 Estimated creatinine clearance No Primar y Care Physician Start: 04-13-2025 Serum inorganic phosphate measurement No Primary Care Physician Start: 04-13-2025 Plain X-ray abdomen No Primary Care Physician Start: 04-12-2025 Plain X-ray abdomen No Primary Care Physician Start: 04-12-2025 CT of abdomen with contrast No Primary C are Physician Start: 04-11-2025 End: 04-11-2025 Plain X-ray abdomen No Primary Care Physician Start: 04-10-2025 Plain X-ray abdomen No Primary Care Physician Start: 04-09-2025 Operative procedure on small intestine No Primary Care Physician Start: 04-09-2025 Small bowel series No Primary Care Physician Start: 04-08-2025 CT of abdomen and pelvis without contrast No Primary Care Physician Start: 04-08-2025 End: 04-08-2025 Plain X-ray abdomen No Primary Care Physician Start: 04-07-2025 Repair of incisional hernia using surgical mesh No Primary Care Physician Start: 04-07-2025 Ct abdomen & pelvis w/contrast material No Primary Care Physician Start: 03-17-2025 Estimated creatinine clearance No Primar [...] scan of gallbladder No Primary Care Physician History of cholecystectomy S/P l aparoscopic cholecystectomy No Primary Care Physician Comment on above: Robotic 04/04/2025 History of cholecystectomy S/P l aparoscopic cholecystectomy Dr. Abbie Philip MD History of cholecystectomy S/P l aparoscopic cholecystectomy Dr. Abbie Philip MD History of cholecystectomy S/P l aparoscopic cholecystectomy Shira SEVERINO Plan of Treatment Date Care Activity Detail Author Start: 04-25-2025 End: 04-25-2025 Patient encounter procedure Cholelithiasis -[facility] Work Phone: Start: 04-23-2025 End: 04-23-2025 Patient encounter procedure History of incisional hernia repair -[facility] Work Phone: Start: 04-15-2025 Patient discharge [facility] Start: 04-15-2025 Non-patient / Non-visit Non-patient / Non-visit -[facility] Start: 04-14-2025 Non-patient / Non-visit Non-patient / Non-visit -[facility] Start: 04-13-2025 Plain X-ray abdomen Abdomen Single View [facility] Start: 04-13-2025 Non-patient / Non-visit Non-patient / Non-visit -[facility] Start: 04-12-2025 Non-patient / Non-visit Non-patient / Non-visit -[facility] Start: 04-12-2025 Plain X-ray abdomen Abd Inc Decub and/or Erect [facility] Start: 04-12-2025 CT of abdomen with contrast Abdomen WITH ORAL Cont Only [facility] Start: 04-11-2025 Non-patient / Non-visit Non-patient / Non-visit -[facility] Start: 04-11-2025 End: 04-11-2025 Plain X-ray abdomen [facility] Start: 04-10-2025 [facility] Start: 04-10-2025 Non-patient / Non-visit Non-patient / Non-visit -[facility] Start: 04-10-2025 Plain X-ray abdomen Abdomen Single View [facility] Start: 04-09-2025 Admission procedure [facility] Start: 04-09-2025 End: 04-15-2025 Evaluation and management of inpatient History of incisional hernia repair [facility] Work Phone: Start: 04-09-2025 Operative procedure on small intestine Exploratory,Laparoscopy ,SBO (Not Applicable) [facility] Start: 04-09-2025 Small bowel series Small Bowel Series Only [facility] Start: 04-09-2025 Non-patient / Non-visit Non-patient / Non-visit -[facility] Start: 04-08-2025 [facility] Start: 04-08-2025 CT of abdomen and pelvis without contrast Abdomen/Pelvis without Cont [facility] Start: 04-08-2025 End: 04-08-2025 Plain X-ray abdomen [facility] Start: 04-08-2025 Non-patient / Non-visit Non-patient / Non-visit -[facility] Start: 04-07-2025 Following clinical pathway protocol [facility] Start: 04-07-2025 End: 04-07-2025 Application of intermittent pneumatic compression device [facility] Start: 04-07-2025 Catheterization of vein [facility] Start: 04-07-2025 Measuring intake and output [facility] Start: 04-07-2025 [facility] Start: 04-07-2025 Repair of incisional hernia using surgical mesh Hernia, Incisional Repair w/ Mesh (Not Applicable) [facility] Start: 04-07-2025 Ambulation without limitation [facility] Start: 04-07-2025 Admission procedure [facility] Start: 04-07-2025 Non-patient / Non-visit Non-patient / Non-visit -[facility] Start: 04-07-2025 Ct abdomen & pelvis w/contrast material Abdomen/Pelvis W IV Cont ONLY [facility] Start: 04-04-2025 Patient discharge [facility] Start: 04-04-2025 Anes intraperitoneal upper abdomen w/laps nos ANES IPER UPR ABD NOS [facility] Start: 04-04-2025 Laparoscopic cholecystectomy LAPAROSCOPIC CHOLECYSTECTOMY [facility] Start: 03-18-2025 Patient discharge [facility] Start: 03-16-2025 Application of intermittent pneumatic compression device [facility] Start: 03-16-2025 Ambulation without limitation [facility] Start: 03-16-2025 Assessment of risk of venous thromboembolism [facility] Start: 03-16-2025 Insertion of catheter into peripheral vein [facility] Start: 03-16-2025 Measuring intake and output [facility] Start: 03-16-2025 Oxygen therapy [facility] Start: 03-16-2025 Providing care according to standard [facility] Start: 03-16-2025 Provision of activity privileges [facility] Start: 03-16-2025 Referral for physical therapy [facility] Start: 03-16-2025 Referral to gastroenterology service [facility] Start: 03-16-2025 Referral to occupational therapist [facility] Start: 03-16-2025 Following clinical pathway protocol [facility] Start: 03-16-2025 End: 03-16-2025 [facility] Start: 03-16-2025 Admission procedure [facility] Patient Education Soft Diet Ch D c Low-Fat Cooking Tips Soft [place] Diet Dc [facility] Work Phone: Immunizations Immunization Date Immunization Notes Care Provider Fa cility 03-17-2025 influenza, seasonal, injectable, preservative free No Primary Care Physician [facility] Payers Date Payer Category Payer Self-pay 2025 Unknown [id number] Unknown [id number] 2.16.8 [id number] Unknown [id number] 2.16.8 40.1.685467.3.579.2.462 Unknown [id number] 2.16.8 40.1.186345.3.579.2.462 Unknown [id number] 2.16.8 40.1.971765.3.579.2.462 Unknown [id number] 2.16.8 40.1.747645.3.579.2.462 Unknown [id number] 2.16.8 40.1.935457.3.579.2.462 Unknown [id number] 2.16.8 40.1.061128.3.579.2.462 Unknown [id number] 2.16.8 40.1.055447.3.579.2.462 Unknown [id number] 2.16.8 40.1.723403.3.579.2.462 Unknown [id number] 2.16.8 40.1.358405.3.579.2.462 Unknown [id number] 2.16.8 40.1.376994.3.579.2.462 Unknown [id number] 2.16.8 40.1.941012.3.579.2.462 Unknown [id number] 2.16.8 40.1.549633.3.579.2.462 Unknown [id number] 2.16.8 40.1.177507.3.579.2.462 Unknown [id number] 2.16.8 40.1.204705.3.579.2.462 Unknown [id number] 2.16.8 40.1.941345.3.579.2.462 Unknown [id number] 2.16.8 40.1.106013.3.579.2.462 Unknown [id number] 2.16.8 40.1.087693.3.579.2.462 Unknown [id number] 2.16.8 40.1.472885.3.579.2.462 Unknown [id number] 2.16.8 40.1.695330.3.579.2.462 Unknown [id number] 2.16.8 40.1.640446.3.579.2.462 Unknown [id number] 2.16.8 40.1.293885.3.579.2.462 Social History Date Type Detail Facility Start: 03-16-2025 End: 04-07-2025 Tobacco smoking status FLIS Never smoked tobacco (finding) [facility] Sex Male [facility] Start: 1975 Sex Assigned At Male [facility] Medical Equipment Procedure Code Equipment Code Equipment Origin al Text Equipment Identifier Dates Robot-assisted laparoscopic cholecystectomy without cholangiography Ligation clip, synthetic polymer, non-bioabsorbable ()[id number] FDA Start: 04-04-2025 Robot-assisted laparoscopic cholecystectomy without cholangiography Ligation clip, synthetic polymer, non-bioabsorbable ()[id number] FDA Start: 04-04-2025 Repair, hernia, incisional, with mesh insertion ([id number] Extra-gynaecologic al surgical mesh, composite-polymer ()[id number] FDA Start: 04-07-2025 Release, small intestine, laparoscopic Endoscopic manual linear stapler [id number] FDA Start: 04-09-2025 ERCP (endoscopic retrograde cholangiopancreatograph y) STENT,RX PLASTIC BILIARY 10X7 FDA Start: 03-16-2025 ERCP (endoscopic retrograde cholangiopancreatograph y) STENT,RX PLASTIC BILIARY 10X7 FDA Start: 03-16-2025 ERCP (endoscopic retrograde cholangiopancreatograph y) STENT,RX PLASTIC BILIARY 10X7 FDA Start: 03-16-2025 ERCP (endoscopic retrograde cholangiopancreatograph y) STENT,RX PLASTIC BILIARY 10X7 FDA Start: 03-16-2025 ERCP (endoscopic retrograde cholangiopancreatograph y) STENT,RX PLASTIC BILIARY 10X7 FDA Start: 03-16-2025 Goals Date Patient Goal Desired Activity /State Functional Status Date Assessment Result Facility 04-15-2025 Functional status Assistive devices used None [facility] Work Phone: 04-14-2025 Functional status Activity Ability Indepe ndent [facility] Work Phone: 04-14-2025 Functional status Tolerates Activity Well [facility] Work Phone: 04-10-2025 Functional status Patient Activity Ambula scott [facility] Work Phone: 03-18-2025 Functional status Ambulates [facility] Work Phone: Mental Status Date Assessment Result Facility 04-14-2025 Cognitive function Voice/Name [facility] Work Phone: 04-04-2025 Cognitive function Voice/Name [facility] Work Phone: 03-18-2025 Cognitive function Voice/Name [facility] Work Phone: Clinical Notes 03-16-2025 to 10-26-2025 Note Date & Type Note Facility 04-15-2025 Note [facility] Medical Records Department [address] [place] [address] Discharge Summary 04/15/25 1150 MR#: [id number] Acct: [id number] Name: ALONDRA ARITA Rep #: [id number] : 1975 49 From: Mateo Daniel MD PCP: Care Physician,No Primary Status:ADM IN Location: [place] [address] Providers Date of Admission: 04/09/25 Date of Discharge: 04/15/25 Primary Care Physician: No Primary Care Phys Reason For Visit: INGUINAL HERNIA REPAIR Diagnosis Discharge Diagnosis (1) History of incisional hernia repair: Status: Acute Code(s): Z98.890 - Other specified postprocedural states; Z87.19 - Personal history of other diseases of the digestive system (2) Intractable vomiting: Status: Acute Code(s): R11.10 - Vomiting, unspecified (3) SBO (small bowel obstruction): Status: Resolved Code(s): K56.609 - Unspecified intestinal obstruction, unspecified as to partial versus complete obstruction (4) Incisional hernia with bowel obstruction: Status: Resolved Code(s): K43.0 - Incisional hernia with obstruction, without gangrene (5) S/P laparoscopic cholecystectomy: Status: Acute Code(s): Z90.49 - Acquired absence of other specified parts of digestive tract Plan Patient's status post robot-assisted cholecystectomy followed by incisional hernia repair with mesh placement followed by diagnostic laparoscopy with adhesiolysis for small bowel obstruction. His postoperative ileus seems to be steadily improving. He admits to flatus and bowel movements Patient has been up and ambulating. Patient tolerated diet advancement without incident Will plan discharge for today. Patient is to follow-up in our office in about 1-2 weeks Medications at Discharge Home Medications omeprazole 40 mg capsule,delayed release 40 mg PO QDAY #30 caps 03/23/25 oxycodone 5 mg capsule 5 mg PO Q6H PRN pain 3 days #10 caps 04/04/25 Hospital Course Operations - (Diagnostic laparoscopy) Summary of Care Provided Minutes Spent on Discharge: 15 Hospital Course: Patient is a 49-year-old male who recently underwent a robotic cholecystectomy with Dr. Philip. Patient had quite a bit of vomiting after the surgery and subsequently developed a hernia. This hernia was then subsequently repaired. Following the hernia he developed a small bowel obstruction. He then underwent a diagnostic laparoscopy and a loop of bowel was found adherent to the undersurface of the mesh. This was released. Patient had an ileus postoperatively. Eventually he was able to regain bowel function and diet was gradually advanced. Currently patient is tolerating diet well. He denies any nausea or vomiting. No abdominal pain or distention. Patient is requesting discharge home. This is reasonable as he is doing well Physical Exam Narrative He is alert and oriented x 3. He is in no acute distress. Abdomen is soft, nontender and nondistended. Incisions are clean dry and intact Weight / BMI Weight Weight: 223 lb 1.725 oz Body Mass Index (BMI) 33.9 ABG / Lab / Microbiology Data 04/13/25 09:00 04/13/25 09:00 D/C Instructions Discharge Activity: Return to Normal Activity Lifting Restrictions: No lifting pushing or pulling more than 20 pounds for about 6 weeks Call your doctor if your incision/area has: Continuous Slow Oozing, Sudden Increased Bleeding, Increased Pain/ Swelling, Increased Redness, Foul Smelling Discharge and Swelling at the incision site Call your doctor if you observe: Fever of 101 or Higher and Inability to have a bowel movement Cleanse incision/area with: Soap Water DC O2, CPAP, BIPAP Needs Home O2 Discharge instructions: No DC home with Oxygen: No Please Follow Up With: Abbie Philip MD When: 1 to 2 weeks. Please call office to schedule appointment Meaningful Use Info Meaningful Use Meaningful Use Diagnoses (Choose all that apply): None applicable Discharge Plan Admission Admit Date/Time: 04/09/25 14:32 Primary Reason for Your Visit: Small bowel obstruction Attending Provider: Abbie Philip Primary Care Provider: Roman PhysicianJudy Primary Discharge Orders/Prescriptions Prescriptions: Continued omeprazole 40 mg capsule,delayed release(DR/EC) 40 mg PO QDAY Qty: 30 3RF Rx Instructions: swallow whole; do not crush, chew, dissolve, cut, break oxycodone 5 mg capsule 5 mg PO Q6H PRN (Reason: pain) 3 Days Qty: 10 0RF Referrals / Follow Up: Care PhysicianJudy Primary [Primary Care Provider, Medical] Disposition Disposition (needs filled in before D/C Order can be placed): Home, Self Care 04/15/25 1208 Cosigner Signature (if applicable): CC: Dr. Mateo Daniel MD; No Primary Care Physician Signed [facility] 04-13-2025 Radiology Diagnostic study note [facility] Imaging Services [address] [place], [place] [address] Abdomen Single View MR#: [id number] Acct: [id number] Name: ALONDRA ARITA Rep #: [id number] : 1975 M 49 From: Angel Lea MD PCP: Care Physician,No Primary Status: ADM IN Study:Abdomen Single View Date of Exam: 04/13/25 Exam# [id number] Ordering Dr: Abbie Philip MD PROCEDURE: ABDOMEN SINGLE VIEW 04/13/2025 REASON FOR EXAM: ILEUS TECHNIQUE: Procedure Code: RADABD Modality: DX Procedure: ABDOMEN SINGLE VIEW COMPARISON: Yesterday FINDINGS: Bowel gas: Persistent borderline distended air-filled loops in the mid abdomen consistent with focal ileus. No significant change since the previous study is noted. There is no evidence of oral contrastin the colon which was from a CT scan from yesterday as well. The presence of the contrast within the sigmoid colon and rectum suggests there is no obstruction. Calcifications: No suspicious calcifications Bones: Bony structures are unremarkable Other: Biliary stent noted RAD/Abdomen Single View IMPRESSION: Persistent focal ileus noted in the central mid abdomen Presence of oral contrast in the colon, particularly the sigmoid colon and rectum suggests there is no obstruction present No free air Reading Location: [facility] CC: Dr. Abbie Philip MD; No Primary Care Physician ~ Life Sciences Teacher: Signed [facility] 04-12-2025 Radiology Diagnostic study note [facility] Imaging Services [address] [place], [place] [address] Abd Inc Decub and/or Erect MR#: [id number] Acct: [id number] Name: ALONDRA ARITA Rep #: [id number] : 1975 M 49 From: Gigi Begum MD PCP: Care Physician,No Primary Status: ADM IN Study:Abd Inc Decub and/or Erect Date of Exam : 04/12/25 Exam# [id number] Ordering Dr: Yamini Mathew PA-C PROCEDURE: ABD INC DECUB AND/OR ERECT 04/12/2025 REASON FOR EXAM: SMALL BOWEL OBSTRUCTION TECHNIQUE: Procedure Code: RADABDMV Modality: DX Procedure: Four view abdomen INC DECUB AND/OR ERECT COMPARISON: Abdomen study of 04/11/2020. RAD/Abd Inc Decub and/or Erect IMPRESSION: No evidence of pneumoperitoneum. Common duct stent remains in place. Air and stool are seen throughout the large bowel and rectum. Dilated small bowel loops are again seen, but notably partially improved since the prior study of the day before. Findings are concerning for possible partial small bowel obstruction. No interval osseous change is seen. Reading Location: [id number] CC: VERNON Mathew; No Primary Care Physician ~ Life Sciences Teacher: Signed [facility] 04-12-2025 Radiology Diagnostic study note [facility] Imaging Services [address] [place] [address] [id number] Abdomen WITH ORAL Cont Only MR#: [id number] Acct: [id number] Name: ALONDRA ARITA Rep #: [id number] : 1975 M 49 From: Angel Lea MD PCP: Care Physician,No Primary Status: ADM IN Study:Abdomen WITH ORAL Cont Only Date of Exa m: 04/12/25 Exam# [id number] Ordering Dr: Abbie Philip MD PROCEDURE: ABDOMEN WITH ORAL CONT ONLY 04/12/2025 REASON FOR EXAM: N/V TECHNIQUE: Procedure Code: CTABDWOPO Modality: CT Procedure: ABDOMEN WITH ORAL CONT ONLY Oral contrast was also used. coronal and Sagittal reconstruction series were provided. One or more dose reduction techniques were used (e.g., Automated exposure control, adjustment of the mA and/or kV according to patient size, use of iterative reconstruction technique CONTRAST: None RADIATION DOSE SUMMARY: CTDlvol: 17.04 mGy DLP: 974.81 mGycm COMPARISON: Previous plain films FINDINGS: Noncontrast technique limits evaluation of the abdominal viscera. Lung bases: Clear Liver: Normal size. No mass. Pneumobilia noted in the left lobe. Gallbladder: Surgically absent. Biliary stent noted in the common bile duct. Spleen: Normal size. Pancreas: Normal size without evidence of mass surrounding inflammation or ductal dilation. Adrenals: Unremarkable Kidneys: No obstructive uropathy or suspicious solid renal lesion Bowel: Distended contrast filled small bowel loops predominantly in the left half of the abdomen consistent with a developing obstruction. There is no submucosal thickening or edema present, there is some subtle mesenteric twisting noted in the left lower quadrant on coronal recon images 30 through 42 which may due to adhesions from previous surgery. No clearly demonstrated transition point it is likely in the mid to distal ileum is there are non distended noncontrast containing small bowel loops noted distally. The colon is decompressed, scattered colonic diverticula noted without CT evidence of acute diverticulitis. Normal appendix is seen on coronal recon images 75 through 83 Lymph nodes: No suspicious bulky mesenteric or retroperitoneal lymphadenopathy Vasculature: The abdominal aorta and IVC are normal. Peritoneum / Retroperitoneum: No free fluid or air Bones: Mild degenerative bony changes in the lower lumbar spine CT/Abdomen WITH ORAL Cont Only IMPRESSION: Likely developing small bowel obstruction as there are distended contrast filledstomach and proximal small bowel. I suspect there are underlying adhesions from previous surgery and there is mesenteric twisting noted on coronal recon images 30 through 42. No oral contrast is noted in distal small bowel loops are within the colon Scattered colonic diverticulosis, no CT evidence of acute diverticulitis No suspicious solid organ abnormality. There has been previous removal of the gallbladder, there is a biliary stent present and pneumobilia noted in the left lobe of the liver No free intraperitoneal fluid, air, or suspicious adenopathy, normal appendix visualized Reading Location: [id number] CC: Dr. Abbie Philip MD; No Primary Care Physician ~ Life Sciences Teacher: Signed [facility] 04-11-2025 Radiology Diagnostic study note [facility] Imaging Services [address] [place], [place] [id number] Abdomen Single View MR#: [id number] Acct: [id number] Name: ALONDRA ARITA Rep #: [id number] : 1975 M 49 From: Tesfaye Elliott MD PCP: Care Physician,No Primary Status: ADM IN Study:Abdomen Single View Date of Exam: 04/11/25 Exam# [id number] Ordering Dr: Abbie Philip MD PROCEDURE: ABDOMEN SINGLE VIEW 04/11/2025 REASON FOR EXAM: EMESIS TECHNIQUE: Procedure Code: RADABD Modality: DX Procedure: ABDOMEN SINGLE VIEW COMPARISON: Earlier same day 04/11/2025, and 04/10/2025. CT 04/08/2025. FINDINGS: Persistent dilated air-filled small bowel loops grouped in the central abdomen compatible with small-bowel obstruction. No discernible free air. Rectal gas is seen. Biliary stent noted. RAD/Abdomen Single View IMPRESSION: Persistent dilated air-filled small bowel loops suggesting SBO or segmental ileus. Reading Location: [id number] CC: Dr. Abbie Philip MD; No Primary Care Physician ~ Life Sciences Teacher: Signed [facility] 04-11-2025 Procedure note [facility] 04-11-2025 Radiology Diagnostic study note [facility] Imaging Services [address] [place] [address] Abd Inc Decub and/or Erect MR#: [id number] Acct: [id number] Name: ALONDRA ARITA Rep #: [id number] : 1975 M 49 From: Nicolas Dean MD PCP: Care Physician,No Primary Status: ADM IN Study:Abd Inc Decub and/or Erect Date of Exam : 04/11/25 Exam# [id number] Ordering Dr: Yamini Mathew PA-C PROCEDURE: ABD INC DECUB AND/OR ERECT 04/11/2025 REASON FOR EXAM: ABDOMINAL DISTENTION TECHNIQUE: Procedure Code: RADABDMV Modality: DX Procedure: ABD INC DECUB AND/OR ERECT COMPARISON: Prior study dated April 09, 2025. FINDINGS: Bowel gas: Persistent mildly dilated small bowel loops with air-fluid levels. Gas and fecal material seen throughout the colon. Findings suggestive of incomplete small bowel obstruction. Calcifications: No suspicious calcifications. Bones: There are degenerative changes of the spine. Other: Once again, a biliary stent is seen in the common bile duct. The previously seen nasogastric tube has been withdrawn. Atelectasis at the left lung base. RAD/Abd Inc Decub and/or Erect IMPRESSION: Improvement in the small bowel dilatation with air-fluid levels. Gas and fecal material seen throughout the colon. Reading Location: [place] [address] CC: VERNON Mathew; No Primary Care Physician ~ Life Sciences Teacher: Signed [facility] 04-10-2025 Radiology Diagnostic study note [facility] Imaging Services [address] [place] [address] Abdomen Single View MR#: [id number] Acct: [id number] Name: ALONDRA ARITA Rep #: [id number] : 1975 M 49 From: Gigi Begum MD PCP: Care Physician,No Primary Status: ADM IN Study:Abdomen Single View Date of Exam: 04/10/25 Exam# [id number] Ordering Dr: Yamini Mathew PA-C PROCEDURE: ABDOMEN SINGLE VIEW 04/10/2025 REASON FOR EXAM: SMALL BOWEL OBSTRUCTION TECHNIQUE: Procedure Code: RADABD Modality: DX Procedure: Two-view supine abdomen COMPARISON: Small-bowel series of 04/09/2025. RAD/Abdomen Single View IMPRESSION: Common duct stent unchanged in position. Stable positioning of the coiled nasogastric tube. Dilation of multiple small bowel loops is again prominently seen, without clear interval improvement since the study of the day before. The remainder of the examination is unchanged. Reading Location: [id number] CC: VERNON Mathew; No Primary Care Physician ~ Life Sciences Teacher: Signed [facility] 04-09-2025 Radiology Diagnostic study note [facility] Imaging Services [address] [place] [address] Small Bowel Series Only MR#: [id number] Acct: [id number] Name: ALONDRA ARITA Rep #: [id number] : 1975 M 49 From: Nicolas Dean MD PCP: Care Physician,No Primary Status: ADM KATHLEEN Study:Small Bowel Series Only Date of Exam: 04/09/25 Exam# [id number] Ordering Dr: Abbie Philip MD PROCEDURE: SMALL BOWEL SERIES ONLY 04/09/2025 REASON FOR EXAM: SMALL BOWEL OBSTRUCTION Recent hernia repair. TECHNIQUE: SMALL BOWEL SERIES ONLY FLUOROSCOPIC TIME: None FLUOROGRAPHIC IMAGES: 5 COMPARISON: Prior study dated April 08, 2025. FINDINGS: A nasogastric tube is seen with the tip in the distal portion of the stomach. Abiliary stent catheter is seen. There is evidence of dilated small bowel loops. Following this, the patient ingested Gastrografin. A small bowel follow-throughexamination was performed up to 1 hour as determined by the surgeon. There is evidence of small bowel dilatation. Contrast is seen in the proximal small bowel. RAD/Small Bowel Series Only IMPRESSION: Persistent small bowel dilatation. Incomplete study. Findings suggestive of small-bowel obstruction. Reading Location: [facility] CC: Dr. Abbie Philip MD; No Primary Care Physician ~ Life Sciences Teacher: Signed [facility] 04-08-2025 Radiology Diagnostic study note [facility] Imaging Services [address] [place] [address] [id number] Abdomen Single View (Portable) MR#: [id number] Acct: [id number] Name: ALONDRA ARITA Rep #: [id number] : 1975 M 49 From: Tesfaye Elliott MD PCP: Care Physician,No Primary Status: ADM KATHLEEN Study:Abdomen Single View (Portable) Date of Exam: 04/08/25 Exam# [id number] Ordering Dr: Abbie Philip MD PROCEDURE: ABDOMEN SINGLE VIEW (PORTABLE) 04/08/2025 REASON FOR EXAM: FOR NG PLACEMENT TECHNIQUE: Procedure Code: RADABD_P Modality: DX Procedure: ABDOMEN SINGLE VIEW (PORTABLE) COMPARISON: Earlier same day 04/08/2025 FINDINGS: Enteric tube extends below the diaphragm, coiled in the left upper abdomen, sideport/distal tip terminating in the expected location of the stomach/proximal duodenum. Biliary ductal stent in place. Unchanged appearance of dilated air-filled small bowel segments in the upper midabdomen. No discernible free air. No unusual calcific densities appreciated. Mild left basilar discoid atelectasis. RAD/Abdomen Single View (Portable) IMPRESSION: 1. Enteric tube terminates within the distal stomach/proximal duodenum. 2. Unchanged dilated air-filled small bowel loops in the upper midabdomen. Reading Location: [id number] CC: Dr. Abbie Philip MD; No Primary Care Physician ~ Life Sciences Teacher: Signed [facility] 04-08-2025 Radiology Diagnostic study note [facility] Imaging Services [address] [place], [place] [id number] Abdomen/Pelvis without Cont MR#: [id number] Acct: [id number] Name: ALONDRA ARITA Rep #: [id number] : 1975 M 49 From: Pet er Peer DO PCP: Care Physician,No Primary Status: ADM KATHLEEN Study:Abdomen/Pelvis without Cont Date of Exa m: 04/08/25 Exam# [id number] Ordering Dr: Abbie Philip MD PROCEDURE: ABDOMEN/ PELVIS WITHOUT CONT 04/08/2025 REASON FOR EXAM: POST OP TECHNIQUE: Procedure Code: CT ABD PEL Modality: CT Procedure: ABDOMEN/PELVIS WITHOUT CONT Noncontrast technique limits evaluation of the abdominal and pelvic viscera. Coronal and Sagittal reconstruction series were provided. One or more dose reduction techniques were used (e.g., Automated exposure control, adjustment of the mA and/or kV according to patient size, use of iterative reconstruction technique). RADIATION DOSE SUMMARY: CTDlvol: 21.87 mGy DLP: 1325 0.06 mGycm COMPARISON: CT of April 07, 2020, yesterday FINDINGS: Lung bases: Calcified nodule right middle lobe Liver: Biliary stent in place. Intrahepatic biliary air in the left lobe. Gallbladder: Not identified Spleen: Unremarkable Pancreas: Unremarkable Adrenals: Normal Kidneys: Unremarkable Bladder: Unremarkable Reproductive Organs: Unremarkable Bowel: Fluid and air dilated small bowel with transition point in the distal 3rdof the ileum suggest mechanical obstruction or obstruction from other etiology with a transition to normal caliber small bowel in the distal 3rd of the ileum Appendix: Normal appendix identified. Lymph nodes: Grossly no aortocaval, pelvic or inguinal adenopathy Vasculature: Unremarkable Peritoneum / Retroperitoneum: No free air and no free fluid Bones: No lytic or blastic bone abnormalities. CT/Abdomen/Pelvis without Cont IMPRESSION: Small-bowel obstruction is of concern. Correlate clinically Reading Location: [facility] CC: Dr. Abbie Philip MD; No Primary Care Physician ~ Life Sciences Teacher: Signed [facility] 04-08-2025 Radiology Diagnostic study note [facility] Imaging Services [address] [place] [address] Abdomen Single View MR#: [id number] Acct: [id number] Name: ALONDRA ARITA Rep #: [id number] : 1975 M 49 From: Pet er Peer DO PCP: Care Physician,No Primary Status: ADM KATHLEEN Study:Abdomen Single View Date of Exam: 04/08/25 Exam# [id number] Ordering Dr: Abbie Philip MD PROCEDURE: ABDOMEN SINGLE VIEW 04/08/2025 REASON FOR EXAM: NAUSEA POST OP TECHNIQUE: Procedure Code: RAD ABD Modality: DX Procedure: ABDOMEN SINGLE VIEW COMPARISON: Ercp 03/16/[address] SAME date FINDINGS: Bowel gas: 4 or 5 distended differential air-fluid levels are seen in the upper half of the left lower quadrant of the abdomen. Findings suggest postoperative ileus versus obstruction. Please correlate clinically. Biliary stent in place. Calcifications: No abnormal large calcifications appreciated. Bones: Unremarkable Other: Significant findings RAD/Abdomen Single View IMPRESSION: Obstructed bowel-gas pattern. Correlate clinically to rule out ileus Reading Location: [facility] CC: Dr. Abbie Philip MD; No Primary Care Physician ~ Life Sciences Teacher: Signed [facility] 04-08-2025 Procedure note [facility] 04-07-2025 Radiology Diagnostic study note [facility] Imaging Services [address] [place] [address] [id number] Abdomen/Pelvis W IV Cont ONLY MR#: [id number] Acct: [id number] Name: ALONDRA ARITA Rep #: [id number] : 1975 M 49 From: [facility] feliciano Elliott MD PCP: Care Physician,No Primary Status: [facility] Study:Abdomen/Pelvis W IV Cont ONLY Date of E xam: 04/07/25 Exam# [id number] Ordering Dr: Paulo Ramirez MD PROCEDURE: CT ABDOMEN/PELVIS W IV CONT ONLY 04/07/2025 REASON FOR EXAM: RECENT CYNDIE, POSTOP N/V, RUQ PAIN TECHNIQUE: Procedure Code: CTABDPELIV Modality: CT Procedure: ABDOMEN/PELVIS W IV CONT ONLY Coronal and Sagittal reconstruction series were provided. CONTRAST: Isovue 300 VOLUME: 99 mL One or more dose reduction techniques were used (e.g., Automated exposure control, adjustment of the mA and/or kV according to patient size, use of iterative reconstruction technique. RADIATION DOSE SUMMARY: DLP: 1331.71 mGycm COMPARISON: Abdominal CT 03/16/2025. FINDINGS: Lung bases: Clear. Mild bibasilar dependent atelectasis. Hepatobiliary: Hepatic steatosis. Redemonstrated hyperattenuating mass with central hypodensity in the right lobe of the liver, favoring focal nodular hyperplasia. Status post cholecystectomy with mild postoperative prominence of the biliary ductal system with a biliary stent traversing the CBD and extending into the duodenum. Presumed postoperative pneumobilia in the left hepatic lobe. Normal size spleen. Unremarkable appearance of the pancreas. Genitourinary: Normal adrenal glands. Symmetric renal enhancement. No urolithiasis or hydronephrosis. Unremarkable urinary bladder. Normal-sized prostate. Bowel: There is a small supraumbilical ventral abdominal wall hernia containing a focally herniated short-segment of jejunal small bowel, with a narrow neck and small-bowel obstruction at the site of herniation with upstream proximal small bowel dilatation with multiple air-fluid levels. Distally the remainder of the bowel is largely decompressed. Normal appendix. No evidence for active inflammatory process. Mild distal colonic diverticulosis without evidence for active diverticulitis. Lymph nodes: No enlarged abdominopelvic lymph nodes. Vasculature: Normal caliber abdominal aorta and IVC. Peritoneum / Retroperitoneum: No ascites or free air. Bones: Minimal degenerative changes of the spine. CT/Abdomen/Pelvis W IV Cont ONLY IMPRESSION: 1. Proximal small bowel obstruction with transition point at the location of a small supraumbilical ventral abdominal wall hernia, with focally herniated short-segment of jejunal small bowel. 2. 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 This can be confirmed with a dedicated MRI with Eovist. 3. Prior cholecystectomy with biliary ductal stent in place. Postoperative pneumobilia. Reading Location: [facility] CC: Dr. Rich Ramirez MD; No Primary Care Physician ~ Life Sciences Teacher: Signed [facility] 04-07-2025 History and physical note [facility] 04-07-2025 Discharge summary [facility] 04-07-2025 Discharge summary Note Date/Time April 07, 2025 6:03pm [facility] Medical Records Department [address] [place] [address] Emergency Department Summary 04/07/25 MR#: [id number] Acct: [id number] Name: ALONDRA ARITA Rep #:[id number] : 1975 49 From: Rich Ramirez MD PCP: Care Physician,No Primary Status :[facility] Location: [facility]1 HPI HPI - GI History of Present Illness Chief Complaint: Nausea/Vomiting Informant: patient and spouse/S.O. Narrative Narrative: Patient is a 49-year-old male presenting with nausea, emesis, and abdominal painfollowing cholecystectomy performed 3 days ago. - Reports feeling unwell since the surgery, with daily episodes of emesis. - Has been consuming only Gatorade; last solid food intake was on night of surgery. - Experiences upper abdominal pain, which he describes as distinct from incisionpain. - Emesis provides temporary relief, but symptoms recur after about 6 hours. - Denies emesis being consistently triggered by fluid intake. - Has been ambulating when feeling well to promote bowel function. - Reports bloating and minimal gas passage and no bowel movement since surgery. - Has taken three doses of prescribed oxycodone but prefers to avoid further use. [facility] Medical History (Updated 04/07/25 @ 15:[address] Rich Ramirez MD) Wears glasses Fatty liver Heartburn Gastric reflux Non-smoker Nausea Abdominal pain GERD (gastroesophageal reflux disease) Home Medications ?Medication ?Instructions ?Recorded ?Last Taken ?Type omeprazole 40 mg capsule,delayed 40 mg PO QDAY #30 cap s 03/23/25 04/03/25 Rx release oxycodone 5 mg capsule 5 mg PO Q6H PRN pain 3 days #10 04/04/25 Unknown Rx caps Allergy/AdvReac Type Severity Reaction Status Date / Time No Known Allergies Allergy Verified 04/07/25 13:36 Surgical History S/P laparoscopic cholecystectomy History of wisdom tooth extraction (~06/21/94) Hx of LASIK History of ERCP (03/16/25) Social History Smoking Status: Never smoker alcohol intake: never substance use type: does not use ROS ROS ED Constitutional Constitutional ED: Denies chills or fever(s) Eyes Eyes: Denies change in vision or diplopia ENT ENT ED: Denies rhinorrhea or sore throat Cardiovascular Cardiovascular: Denies chest pain or palpitations Respiratory/Chest Respiratory/Chest: Denies cough or dyspnea Gastrointestinal Gastrointestinal: Reports abdominal pain, nausea, vomiting and other Details: noBM since surgery ; Denies diarrhea Genitourinary Genitourinary ED: Denies dysuria or hematuria Musculoskeletal Musculoskeletal: Denies back pain or neck pain Integumentary Denies abscess or rash Neurologic Neurologic: Denies headache(s), paresthesias or weakness Psychiatric Psychiatric: Denies anxiety or suicidal thoughts EXAM Physical Exam Const Vital Signs: 04/07/25 13:36 04/07/25 13:38 04/07/25 13:51 Temperature 98.9 F 98.9 F Temperature Source Oral Oral Pulse Rate 101 H 101 H 88 Respiratory Rate 18 21 H 19 H Blood Pressure 120/88 H 134/84 H Blood Pressure Mean 98 100 Pulse Ox 95 96 96 Oxygen Delivery Method Room Air Room Air Room Air 04/07/25 15:34 04/07/25 15:34 04/07/25 15:56 Temperature 98.9 F 98.9 F Temperature Source Pulse Rate 88 88 88 Respiratory Rate 19 H 16 16 Blood Pressure 134/84 H 134/84 H Blood Pressure Mean 100 Pulse Ox 96 98 98 Oxygen Delivery Method Room Air Positive well nourished and well developed General Appearance ED: well developed and NAD HEENT Reports moist mucous membranes normocephalic and atraumatic Eyes PERRL and EOMs intact bilaterally Neck full ROM and supple Resp normal respiratory effort and clear to auscultation bilaterally Cardio regular rate, regular rhythm and no murmurs GI GI Narrative: RUQ tenderness, no guard/kylah; mildly ttp left of suprapubic. All surgical incisions without signs of infection significant tenderness or dehiscence. No discharge. 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 I discussed the case with her, and she agrees that ileus is not a likely differential but recommends a CT scan,which was ordered. Labs and CT were obtained, showing mild leukocytosis of 12.5,with normal liver enzymes and lipase. I reviewed the CT images and results, which I agree with; they demonstrate an incisional supraumbilical hernia causinga bowel obstruction. Dr. Philip is aware. She came to the ER, saw the patient, discussed the findings with him, and is taking him to the OR. She requested placement of an NGtube in the ER, which is currently being done. I have discussed this plan with the patient. Lab Data Attestation: I reviewed the patient's lab results. Labs: Laboratory Results - last 24 hr 04/07/25 14:15 WBC 12.5 H RBC 5.86 Hgb 16.3 Hct 47.1 MCV 80.4 MCH 27.8 MCHC 34.6 RDW Std Deviation 37.2 RDW Coeff of Ghulam 12.9 Plt Count 346 MPV 10.3 Immature Gran % (Auto) 0.500 Neut % (Auto) 79.5 H Lymph % (Auto) 13.7 L Coamo % (Auto) 5.4 Eos % (Auto) 0.6 Baso % (Auto) 0.3 Absolute Neuts (auto) 10.0 H Absolute Lymphs (auto) 1.71 Nucleated RBC % 0 Sodium 137 Potassium 3.6 Chloride 100 Carbon Dioxide 22.5 Anion Gap 15 BUN 16 Creatinine 0.93 Estim Creat Clear Calc 107.69 Est GFR (MDRD) Non-Af 101 BUN/Creatinine Ratio 17.4 Glucose 119 H Calcium 9.9 Total Bilirubin 0.75 AST 18 ALT 26 Alkaline Phosphatase 52 Total Protein 7.6 Albumin 4.2 Globulin 3.4 Albumin/Globulin Ratio 1.2 Lipase 36 Radiography Diagnostic Testing: Clinical Impression(s) from Imaging Studies Abdomen/Pelvis CT 04/07/25 14:09 IMPRESSION: 1. Proximal small bowel obstruction with transition point at the location of a small supraumbilical ventral abdominal wall hernia, with focally herniated short-segment of jejunal small bowel. 2. 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 This can be confirmed with a dedicated MRI with Eovist. 3. Prior cholecystectomy with biliary ductal stent in place. Postoperative pneumobilia. Reading Location: [facility] Management Discussion w/another healthcare provider: Hair Spring Cutter (surgery dr. philip) Critical Care Time Critical Care Time: Yes Critical care time (excluding procedures): 30-74 minutes (32 min), Including time spent:, Discussing w/Patient &/or Family/Railroad Conductor, Discussing w/Consultants, Arranging Admission or Transfer and Performing Direct Patient Care at Bedside Discharge Plan Dx/Rx/DC Orders Clinical Impression: SBO (small bowel obstruction), Incisional hernia with bowel obstruction, Intractable vomiting Disposition Disposition: Acute Care Hospital [facility] Discharge Date/Time: 04/07/25 15:46 What to do if you have Problems For any increased pain, shortness of breath, bleeding, nausea or vomiting, chestpain, or any unexpected problems, contact your Primary Care Provider. Call [employer] [facility] ([phone]) or report to the closest Emergency Room. Call 911 if necessary. 04/07/25 1703 <Electronically signed by Rich Ramirez MD> Cosigner Signature (if applicable): CC: No Primary Care Physician ~ Signed [facility] Work Phone: 1(438) 295-877810-15-2025 Consult note [facility] Medical Records Department [address] [place] [address] Anesthesia Postop Eval II 04/04/251736 MR#: [id number] Acct: [id number] Name: ALONDRA ARITA Rep #:[id number] : 1975 49 From: Armando White PCP: Care Physician,No Primary Status :[facility] Race: C Location: [address] Anesthesia Postop Eval I Sum Postop Eval Completion status Anesthesia document: Postop Eval 1 completed: Yes Anesthesia Postop Eval I Summary Anesthesia Postop Eval I Summary: Anesthesia Postop Eval I: Assessment Summary Airway patent Yes 04/04/25 15:46 FLAT SORTING MACHINE [email or web address] Spontaneous unlabored Yes 04/04/25 15:46 FLAT SORTING MACHINE [email or web address] respirations Mental status Awake,Calm 04/04/25 15:46 FLAT SORTING MACHINE [email or web address] nausea No 04/04/25 15:46 FLAT SORTING MACHINE [email or web address] Vomiting No 04/04/25 15:46 FLAT SORTING MACHINE [email or web address] Anesthesia Postop Eval I: Fluid Summary Crystalloid volume administer 1,600 04/04/25 15:46 FLAT SORTING MACHINE [email or web address].[email or web address] (ml) Colloids volume administered ( ml) Blood Product volume administered (ml) Total IV fluid infused 1,600 04/04/25 15:46 FLAT SORTING MACHINE [email or web address] Anesthesia Postop Eval I: Summary Notes Anesthesia Complication No 04/04/25 15:46 FLAT SORTING MACHINE [email or web address].[email or web address] Anesthesia Complication Comment: Post-operative progress note Anesthesia: Postop Eval II Evaluation Mental status: Awake and Calm Pain Level: 1 nausea: No Vomiting: No Complications Anesthesia Complication: No 04/04/251736 MD> Date _ Armando Gomez MD Cosigner Signature: Date CC: ~ Signed [facility]10-15-2025 Procedure note [facility] Medical Records Department [address] [place] [address] Operative Report 04/04/25 1520 MR#: [id number] Acct: [id number] Name: ALONDRA ARITA Rep #:[id number] : 1975 49 From: Abbie Philip MD PCP: Care Physician,No Primary Status :[facility] Location: [facility] Operative Report (Standard) Operative Information Date of Procedure: 04/04/25 Pre-Operative Diagnosis: Cholelithiasis Post-Operative Diagnosis: Cholelithiasis, hydrops of the gallbladder Surgery/Procedure Performed: Robotic cholecystectomy with attempted cholangiogram/ICG indoor landscape architect: Yes Vehicle Assembler: Sarah Beth Baumann Tasks completed by pediatric assistant: Opening & closing Type of Anesthesia: General/Supplemental RN Documented [...] site, position and special equipment prior to beginning procedure. General Anesthesia was induced. The abdomen [...] Trendelenburg position with the right side up. Robotwas docked. The adhesions between the gallbladder and omentum were taken down carefully. The dome of the gallbladder was grasped with atraumatic grasper passed through the lateral port and retracted over the dome of the liver. Infundibulum was then grasped with atraumatic grasper through the midclavicular portand retracted to the right lower quadrant. There were dense adhesions at the area of the neck of the gallbladder. The peritoneum overlying thegallbladder infundibulum was then incised and cystic duct and artery identified and circumferentially dissected. ICG did not show the cystic [...] gallbladder fossa was irrigated with saline and he mostasis obtained. There is no evidence of bleeding from the gallbladder fossa or cystic artery or leakage of bile from the cystic duct stump. Secondary trochars removed under direct vision. No bleeding was noted the trocar sites. The laparoscope was withdrawn and umbilical trocar removed. Thegallbladder was removed using the endoscopic retrieval bag through the umbilicalport which needed to be enlarged due to that 3 cm stone. The gallblad deepa is passed off table as specimen. The abdomen was allowed to collapse. The fascia of the supraumbilical site was closed with 2 csdyri-ab-bmofw sutures as well as interrupted 0 Vicryl suture. The skin was closed with sutures of 4-0 Monocryl and Steri-Strips. The patient was extubated. The patient tolerated procedure well and was taken to the postanesthesia care unit in stable condition. Surgical Findings: See operative report Complications Complications: No 04/04/252208 Cosigner Signature (if applicable): CC: Dr. Abbie Philip MD; No Primary Care Physician~ Signed [facility]10-15-2025 Consult note Author Bryson Yanes [facility] Note Date/Time April 04, 2025 3 :46pm [facility] Medical Records Department [address] [facility] [address] Anesthesia Postop Eval I 04/04/251544 MR#: [id number] Acct: [id number] Name: ALONDRA ARITA Rep #:[id number] : 1975 49 From: Bryson Yanes CRNA PCP: Care Physician,No Primary Status :[facility] Y Race: C Location: [place] [address] Anesthesia: Postop Eval I Current Vital Signs [...] Anesthesia document: Postop Eval 1 completed: Yes 04/04/251545 <Electronically signed by Bryson pool CRNA> Date _ Bryson Yanes CRNA Cosigner Signature: Date CC: ~ Signed [facility] Work Phone: 1(357) 702-527410-15-2025 Discharge summary Author Abbie Philip [facility] Note Date/Time April 04, 2025 3 :29pm [facility] Medical Records Department [address] [place] [address] Instructions for Home/Discharge Instructions 04/04/25 1526 MR#: [id number] Acct: [id number] Name: ALONDRA ARITA Rep #:[id number] : 1975 49 From: Abbie Philip MD PCP: Care Physician,No Primary Status :[facility] Discharge Instructions Diet Discharge Diet: Light diet [...] in: 2 days Cleanse incision/area with: Soap & Water Additional Dressing/Incision Instructions:: Steri-Strips will fall off in 7 to 10 days, if they do not fall off okay to remove after 10 days. Follow Up Care Please Follow Up With: Abbie Philip MD When: Call the office for a follow-up appointment 2 weeks; after 5 PM and on the call [phone] with any concerns. Test Results: Test results from this visit will be discussed in further detail at your follow- up appointment, if applicable. Discharge Plan Admission Attending Provider: Abbie Philip Primary Care Provider: Care Physician,No Primary Instructions Print Language: Haitian Discharge Orders/Prescriptions Prescriptions: New oxycodone 5 mg [...] Order can be placed): Home, Self Care 04/04/251528<Electronically signed by Abbie Philip MD>Abbie Philip MD CC: No Primary Care Physician ~ Signed [facility] Work Phone: 1(737) 372-303410-15-2025 Consult note [facility] Medical Records Department [address] [place] [address] Anesthesia Postop Eval I 04/04/251544 MR#: [id number] Acct: [id number] Name: ALONDRA ARITA Rep #:[id number] : 1975 49 From: Bryson Yanes CRNA PCP: Care Physician,No Primary Status :[facility] Race: C Location: [place] [address] Anesthesia: Postop Eval I Current Vital Signs [...] document: Postop Eval 1 completed: Yes 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> Date _ Bryson Yanes CRNA Cosigner Signature: Date CC: ~ Signed [facility]10-15-2025 Discharge summary [facility] Medical Records Department [address] [place] [address] Instructions for Home/Discharge Instructions 04/04/251525 MR#: [id number] Acct: [id number] Name: ALONDRA ARITA Rep #:[id number] : 1975 49 From: Abbie Philip MD PCP: Care Physician,No Primary [place] [place]charge Instructions Diet Discharge Diet: Light diet [...] in: 2 days Cleanse incision/area with: Soap & Water Additional Dressing/Incision Instructions:: Steri-Strips will fall off in 7 to 10 days, if they do not fall off okay to remove after 10 days. Follow Up Care Please Follow Up With: Abbie Philip MD When: Call the office for a follow-up appointment 2 weeks; after 5 PM and on the call [phone] with any concerns. Test Results: Test results from this visit will be discussed in further detail at your follow- up appointment, if applicable. Discharge Plan Admission Attending Provider: Abbie Philip Primary Care Provider: Roman Physician,No Primary Instructions Print Language: Haitian Discharge Orders/Prescriptions Prescriptions: New oxycodone 5 mg [...] can be placed): Home, Self Care 04/04/25 1529Abbie Philip MD CC: No Primary Care Physician ~ Signed [facility]10-15-2025 Consult note Author Armando Gomez [facility] Note Date/Time April 04, 2025 1 :09pm [facility] Medical Records Department [address] [place] [address] Pre-Anesthesia Evaluation 04/04/25 1304 MR#: [id number] Acct: [id number] Name: ALONDRA ARITA Rep #:[id number] : 1975 49 From: Armando White PCP: Care Physician,No Primary Status :REG SDC Y Race: C Location: [place] [address] ASA Classification* ASA Classification ASA Classification: 2 Assessment & Plan Anesthesia* Anesthesia Assessment Anesthesia [...] risk assessments. Anesthesia Type Anesthesia Type: General History Source History Obtained from:: Patient and Chart Anesthesia Focused Assessment* Temperature: 97.8 F Pulse Rate: 76 Blood Pressure: 140/88 Respiratory Rate: 16 Pulse Ox: 98 Oxygen Delivery Method: Room Air Airway Assessment Mouth opens: >3 cm Mallampati Score: II Teeth Condition: Intact Neck Range of motion (ROM): Full ROM Labs Anesthesia Preop lab: CBC WBC, (4.4-11.0) 11.5 K/mm3 H 03/17/25, 05:47 RBC, (4.6-6.2) 5.40 M/mm3 03/17/25, 05:47 Hgb, (13.0-16.5) 15.2 g/dL 03/17/25, 05:47 Hct, (40-54) 43.5 % 03/17/25, 05:47 Plt Count, (150-450) 242 K/mm3 03/17/25, 05:47 CHEMISTRY Potassium, (3.3-5.1) 4.0 mmol/L 03/17/25, 05:47 Sodium, (133-145) 138 mmol/L 03/17/25, 05:47 BUN, (4-19) 9 mg/dL 03/17/25, 05:47 Creatinine, (0.70-1.20) 0.92 mg/dL 03/17/25, 05:47 Glucose, (70-99) 125 mg/dL H 03/17/25, 05:47 COAG PT, (11.7-14.9) 13.3 SECONDS 03/16/25, 09:54 Pre-Assessment Diagnosis/Proposed Procedure Planned Operative Procedure(s): (N/A) Robotic Cholecystectomy w/grams Anesthesia History Anesthesia History - crown blocker: Anesthesia History - crown blocker Hx Hospitalization Yes: 03/16/25 gallstones/ 03/29/25 09:18 ercp Any Problems With Anesthesia No 03/29/25 09:18 Cholinesterase deficiency No 03/29/25 09:18 You/Your Family Experience No 03/29/25 09:18 fever (hyperthermia) with Relationship Recent Exposure to Contagious No 04/04/25 12:47 Disease Does patient have nerve No 03/29/25 09:18 stimulator Patient instructed to have device shut off --Does patient have Pacemaker No 04/04/25 12:47 or ICD? When Was Last Pacemaker Check QUESTION #4 FULL TEXT: You/Your Family Experience fever (hyperthermia) with Anesthesia Last Oral Intake Last Oral intake: Last Oral Intake NPO since 06:00 04/04/25 12:47 Meds taken in AM with sips of water? Meds patient instructed to take am of surgery PONV PONV - crown blocker: PONV - crown blocker Female No 03/29/25 09:18 HX of Motion Sickness Yes 03/29/25 09:18 HX of N/V After Surgery Yes 03/29/25 09:18 Non-Smoker Yes 03/29/25 09:18 Duration of Surgery greater No 03/29/25 09:18 than 60 minutes Number of Risk Factors 3 03/29/25 09:18 PONV Score Moderate Risk 03/29/25 09:18 Height & Weight Height & Weight: Anesthesia: Height & Weight Height 5 ft 7 in 04/04/25 12:47 Weight: 101 kg 04/04/25 12:47 Body Mass Index (BMI) 34.9 04/04/25 12:47 Respiratory Assessment Respiratory Assessment - crown blocker: Respiratory Tract Infection Hx - crown blocker Hx Respiratory Tract Infection No 03/29/25 09:18 STOP Sleep Apnea STOP Sleep Apnea - crown blocker: STOP Sleep Apnea - crown blocker Hx Hypertension No 03/29/25 09:18 Hx Sleep Apnea No 03/29/25 09:18 CPAP BIPAP Do you snore loudly (louder No 03/29/25 09:18 than talking or can be heard Do you often feel tired/ No 03/29/25 09:18 fatigued/ sleepy during daytime? Has anyone observed you stop No 03/29/25 09:18 breathing during sleep? STOP Results Negative 03/29/25 09:18 QUESTION #5 FULL TEXT : Do you snore loudly (louder than talking or can be heard through closed doors)? 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 Specify any problems Hx of Preganancy in last 3 N/A 03/29/25 09:18 Months Nurse Filling Out Transfusion NBUCHER 03/29/25 09:18 & Questions: Date: 03/29/25 03/29/25 09:18 Time: 09:19 03/29/25 09:18 Patient unable to answer at this time (ie. confused, unrespo /Reproduction History /Reproductive History - crown blocker: /Reproductive Hx- crown blocker Hx Now No 03/29/25 09:18 Gestational Age (in weeks): EDC: Hx Hx Para Hx Section SAB No 03/29/25 09:18 Active Medications Active Medications: Current Medications Generic Name Dose Route Start Last Admin Trade Name Freq PRN Reason Stop Dose Admin Indocyanine Green 3.75 mg/ N/A 1.5 mls @ 999 mls/hr 04/04/25 13:30 04/04/25 12:54 IV 04/04/25 13:31 999 mls/hr PREOP ONE Administration Cefazolin Sodium 2 gm/ Sodium 110 mls @ 200 mls/hr 04/04/25 14:00 Chloride IV 04/04/25 14:32 INTRAOP ONE Lactated Ringer's 1,000 mls @ 15 mls/hr 04/04/25 12:30 04/04/25 12:53 IV 15 mls/hr .Q48H DIA Administration PFSH Medical History Wears glasses Fatty liver Heartburn Gastric reflux Non-smoker Nausea Abdominal pain GERD (gastroesophageal reflux disease) Home Medications ?Medication ?Instructions ?Recorded ?Last Taken ?Type omeprazole 40 mg capsule,delayed 40 mg PO QDAY #30 cap s 03/23/25 04/03/25 Rx release Allergy/AdvReac Type Severity Reaction Status Date / Time No Known Allergies Allergy Verified 04/04/25 12:23 Surgical History History of wisdom tooth extraction (~06/21/94) Hx of LASIK History of ERCP (03/16/25) Social History Smoking Status: Never smoker alcohol intake: never substance use type: does not use Review of Systems (Anesthesia) ROS Narrative System reviewed and no additional complaints, except as documented. 04/04/25 1309 <Electronically signed by Armando Gomez MD> Date _ Armando Gomez MD Cosigner Signature: Date CC: ~ Signed [facility] Work Phone: 1(392) 211-761810-15-2025 History and physical note Author Abbie Philip [facility] Note Date/Time April 04, 2025 1 2:40pm [facility] Medical Records Department [address] [place] [address] History & Physical Exam 04/04/25 1154 MR#: [id number] Acct: [id number] Name: ALONDRA ARITA Rep #:[id number] : 1975 49 From: Abbie Philip MD PCP: Care Physician,No Primary [place] Location: [place] [address] History and Physical Date of Admission: 04/04/25 Date of Service: 03/23/25 MR#: [id number] Acct: [id number] Name: ALONDRA ARITA Rep #: [id number] : 1975 Provider: Dr. Abbie Philip MD Age/Sex: 49/M Location: [facility] Status: Signed Intake Vital Signs 03/16/2513:04 03/23/2508:49 [...] CT abdomen pelvis did show a large gallstonein the gallbladder and his ERCP showed a couple small stones still in the cysticduct. Patient did have some elevation in liver profile which did improve duringhospitalization. ROS General General: No weight change, appetite, [...] healthy appearing, comfortable and no acute distress HENMT Head: normocephalic and atraumatic Neck Neck: supple Resp Effort & Inspection: normal respiratory effort Cardio Rate: regular [...] cut, break 40 mg PO QDAY 30 [id number] Discontinued amoxicillin-pot clavulanate 875-125 mg Discontinued Reason: [...] gallstones requiring another procedure ERCP- Endoscopic Retrograde Cholangiopancreatography, injury to another organ (bile ducts, commonbile duct, small bowel, etc.) and conversion to an open procedure. All questionswere answered. Abbie Philip M.D. Pager: [phone] [facility] [address] [place] [address], [address] [place] [address] Office: [phone] Coding Level of Care Code Off vis,new,level 3 Diagnoses Cholelithiasis K80.20 GERD (gastroesophageal reflux disease) K21.9 03/23/25 1615 <Electronically signed by Abbie Pihlip MD> Date Abbie Philip MD 04/04/25 1238 <Electronically signed by Abbie Philip MD> Cosigner Signature (if applicable): CC: Dr. Abbie Philip MD; No Primary Care Physician~ Signed ADDENDUM by Dr. Abbie Philip MD on 04/04/25 at 1240 Addendum I have examined the patient the following changes are noted: Pt states no abd pain after starting the omeprazole. 04/04/25 1240<Electronically signed by Abbie Philip MD> Cosigner Signature (if applicable): cc: Dr. Abbie Philip MD; No Primary Care Physician ~* Signed [facility] Work Phone: 1(144) 619-338910-15-2025 Consult note [facility] Medical Records Department [address] [place] [address] Pre-Anesthesia Evaluation 04/04/25 1304 MR#: [id number] Acct: [id number] Name: ALONDRA ARITA Rep #:[id number] : 1975 49 From: Armando White PCP: Care Physician,No Primary Status :REG SDC Y Race: C Location: [facility] ASA Classification* ASA Classification ASA Classification: 2 Assessment & Plan Anesthesia* Anesthesia Assessment Anesthesia [...] risk assessments. Anesthesia Type Anesthesia Type: General History Source History Obtained from:: Patient and Chart Anesthesia Focused Assessment* Temperature: 97.8 F Pulse Rate: 76 Blood Pressure: 140/88 Respiratory Rate: 16 Pulse Ox: 98 Oxygen Delivery Method: Room Air Airway Assessment Mouth opens: >3 cm Mallampati Score: II Teeth Condition: Intact Neck Range of motion (ROM): Full ROM Labs Anesthesia Preop lab: CBC WBC, (4.4-11.0) 11.5 K/mm3 H 03/17/25, 05:47 RBC, (4.6-6.2) 5.40 M/mm3 03/17/25, 05:47 Hgb, (13.0-16.5) 15.2 g/dL 03/17/25, 05:47 Hct, (40-54) 43.5 % 03/17/25, 05:47 Plt Count, (150-450) 242 K/mm3 03/17/25, 05:47 CHEMISTRY Potassium, (3.3-5.1) 4.0 mmol/L 03/17/25, 05:47 Sodium, (133-145) 138 mmol/L 03/17/25, 05:47 BUN, (4-19) 9 mg/dL 03/17/25, 05:47 Creatinine, (0.70-1.20) 0.92 mg/dL 03/17/25, 05:47 Glucose, (70-99) 125 mg/dL H 03/17/25, 05:47 COAG PT, (11.7-14.9) 13.3 SECONDS 03/16/25, 09:54 Pre-Assessment Diagnosis/Proposed Procedure Planned Operative Procedure(s): (N/A) Robotic Cholecystectomy w/grams Anesthesia History Anesthesia History - crown blocker: Anesthesia History - crown blocker Hx Hospitalization Yes: 03/16/25 gallstones/ 03/29/25 09:18 ercp Any Problems With Anesthesia No 03/29/25 09:18 Cholinesterase deficiency No 03/29/25 09:18 You/Your Family Experience No 03/29/25 09:18 fever (hyperthermia) with Relationship Recent Exposure to Contagious No 04/04/25 12:47 Disease Does patient have nerve No 03/29/25 09:18 stimulator Patient instructed to have device shut off --Does patient have Pacemaker No 04/04/25 12:47 or ICD? When Was Last Pacemaker Check QUESTION #4 FULL TEXT: You/Your Family Experience fever (hyperthermia) with Anesthesia Last Oral Intake Last Oral intake: Last Oral Intake NPO since 06:00 04/04/25 12:47 Meds taken in AM with sips of water? Meds patient instructed to take am of surgery PONV PONV - crown blocker: PONV - crown blocker Female No 03/29/25 09:18 HX of Motion Sickness Yes 03/29/25 09:18 HX of N/V After Surgery Yes 03/29/25 09:18 Non-Smoker Yes 03/29/25 09:18 Duration of Surgery greater No 03/29/25 09:18 than 60 minutes Number of Risk Factors 3 03/29/25 09:18 PONV Score Moderate Risk 03/29/25 09:18 Height & Weight Height & Weight: Anesthesia: Height & Weight Height 5 ft 7 in 04/04/25 12:47 Weight: 101 kg 04/04/25 12:47 Body Mass Index (BMI) 34.9 04/04/25 12:47 Respiratory Assessment Respiratory Assessment - crown blocker: Respiratory Tract Infection Hx - crown blocker Hx Respiratory Tract Infection No 03/29/25 09:18 STOP Sleep Apnea STOP Sleep Apnea - crown blocker: STOP Sleep Apnea - crown blocker Hx Hypertension No 03/29/25 09:18 Hx Sleep Apnea No 03/29/25 09:18 CPAP BIPAP Do you snore loudly (louder No 03/29/25 09:18 than talking or can be heard Do you often feel tired/ No 03/29/25 09:18 fatigued/ sleepy during daytime? Has anyone observed you stop No 03/29/25 09:18 breathing during sleep? STOP Results Negative 03/29/25 09:18 QUESTION #5 FULL TEXT : Do you snore loudly (louder than talking or can be heard through closeddoors)? 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 Specify any problems Hx of Preganancy in last 3 N/A 03/29/25 09:18 Months Nurse Filling Out Transfusion NBUCHER 03/29/25 09:18 & Questions: Date: 03/29/25 03/29/25 09:18 Time: 09:19 03/29/25 09:18 Patient unable to answer at this time (ie. confused, unrespo /Reproduction History /Reproductive History - crown blocker: /Reproductive Hx- crown blocker Hx Now No 03/29/25 09:18 Gestational Age (in weeks): EDC: Hx Hx Para Hx Section SAB No 03/29/25 09:18 Active Medications Active Medications: Current Medications Generic Name Dose Route Start Last Admin Trade Name Freq PRN Reason Stop Dose Admin Indocyanine Green 3.75 mg/ N/A 1.5 mls @ 999 mls/hr 04/04/25 13:30 04/04/25 12:54 IV 04/04/25 13:31 999 mls/hr PREOP ONE Administration Cefazolin Sodium 2 gm/ Sodium 110 mls @ 200 mls/hr 04/04/25 14:00 Chloride IV 04/04/25 14:32 INTRAOP ONE Lactated Ringer's 1,000 mls @ 15 mls/hr 04/04/25 12:30 04/04/25 12:53 IV 15 mls/hr .Q48H DIA Administration PFSH Medical History Wears glasses Fatty liver Heartburn Gastric reflux Non-smoker Nausea Abdominal pain GERD (gastroesophageal reflux disease) Home Medications ?Medication ?Instructions ?Recorded ?Last Taken ?Type omeprazole 40 mg capsule,delayed 40 mg PO QDAY #30 cap s 03/23/25 04/03/25 Rx release Allergy/AdvReac Type Severity Reaction Status Date / Time No Known Allergies Allergy Verified 04/04/25 12:23 Surgical History History of wisdom tooth extraction (~06/21/94) Hx of LASIK History of ERCP (03/16/25) Social History Smoking Status: Never smoker alcohol intake: never substance use type: does not use Review of Systems (Anesthesia) ROS Narrative System reviewed and no additional complaints, except as documented. 04/04/25 1309 MD> Date _ Armando Gomez MD Cosigner Signature: Date CC: ~ Signed [facility]10-15-2025 History and physical note [facility] Medical Records Department [address] [place] [address] History & Physical Exam 04/04/25 1154 MR#: [id number] Acct: [id number] Name: LYLAGARLANDALONDRA WILLIAN Rep #:[id number] : 1975 49 From: Abbie Philip MD PCP: Care Physician,No Primary Status :[facility] Location: [place] [address] History and Physical Date of Admission: 04/04/25 Date of Service: 03/23/25 MR#: [id number] Acct: [id number] Name: ALONDRA ARITA Rep #: [id number] : 1975 Provider: Dr. Abbie Philip MD Age/Sex: 49/M Location: [facility] Status: Signed Intake Vital Signs 03/16/2513:04 03/23/2508:49 [...] currently not on any PPIs. Patient CT abdomenpelvis did show a large gallstonein the gallbladder and his ERCP showed a couple small stones stillin the cysticduct. Patient did have some elevation in liver profile which did improve duringhospitalization. ROS General General: No weight change, appetite, [...] cough, No COPD, No asthma, No emphysema andNo wheezing Gastro Gastrointestinal: Yes abdominal pain, Yes [...] healthy appearing, comfortable and no acute distress HENMT Head: normocephalic and atraumatic Neck Neck: supple Resp Effort & Inspection: normal respiratory effort Cardio Rate: regular [...] cut, break 40 mg PO QDAY 30 [id number] Discontinued amoxicillin-pot clavulanate 875-125 mg Discontinued Reason: [...] retained gallstones requiring another procedure ERCP- Endoscopic Retr ograde Cholangiopancreatography, injury to another organ (bile ducts, commonbile duct, small bowel,etc.) and conversion to an open procedure. All questionswere answered. Abbie Philip M.D. Pager: [phone] [facility] [address] [place] [address], [address] [place] [address] Office: [phone] Coding Level of Care Code Off vis,new,level 3 Diagnoses Cholelithiasis K80.20 GERD (gastroesophageal reflux disease) K21.9 03/23/25 1615 Date Abbie Philip MD 04/04/25 1238 Cosigner Signature (if applicable): CC: Dr. Abbie Philip MD; No Primary Care Physician~ Signed ADDENDUM by Dr. Abbie Philip MD on 04/04/25 at 1240 Addendum I have examined the patient the following changes are noted: Pt states no abd pain after starting the omeprazole. 04/04/25 1240 Cosigner Signature (if applicable): cc: Dr. Abbie Philip MD; No Primary Care Physician ~* Signed [facility]10-15-2025 [facility] Medical Records Department [address] [place] [address] History Physical Exam 04/04/25 1154 MR#: [id number] Acct: [id number] Name: ALONDRA ARITA Rep #: [id number] : 1975 49 From: Abbie Philip MD PCP: Care Physician,No Primary Status:[facility] Location: [place] [address] History and Physical Date of Admission: 04/04/25 Date of Service: 03/23/25 MR#: [id number] Acct: [id number] Name: ALONDRA ARITA Rep #: [id number] : 1975 Provider: Dr. Abbie Philip MD Age/Sex: 49/M Location: [facility] Status: Signed Intake Vital Signs 03/16/2513:04 03/23/2508:49 [...] No Known Allergies Allergy (Verified 03/23/25 08:51) [facility] Medical History (Updated 03/23/25 @ 16:14 by [...] healthy appearing, comfortable and no acute distress HENMT Head: normocephalic and atraumatic Neck Neck: supple [...] discussed the procedure: Robotic/la (more content not included)...[facility]09-28-2025 Consult note [facility] Medical Records Department [address] [place] [address] Anesthesia Postop Eval II 03/16/25 1655 MR#: [id number] Acct: [id number] Name: ALONDRA ARITA Rep #:[id number] : 1975 49 From: Armando White PCP: Care Physician,No Primary Status :ADM IN Y Race: C Location: [facility]315 1 Anesthesia Postop Eval I Sum Anesthesia Postop [...] No Vomiting: No Complications Anesthesia Complication: No 03/16/25 1655 > Date _ Armando Gomez MD Cosigner Signature: Date CC: ~ Signed [facility]09-28-2025 Procedure note [facility] Medical Records Department [address] [place] [address] ERCP Report MR#: [id number] Acct: [id number] Name: ALONDRA ARITA Rep #:[id number] : 1975 49 From: Yevgeniy Sarah DO PCP: Care Physician,No Primary Status :ADM IN Patient Name: Alondra Arita Procedure Date: [...] hours 19 minutes 10 seconds Findings: The rn progressive care unit film was normal. The esophagus was successfully [...] was placed into the common bile duct. Procedure Code(s): --- Professional --- 13480, Endoscopic retrograde cholangiopancreatography (ERCP); with placement of endoscopic stent into biliary or pancreatic duct, including pre- and post-dilation and guide wire passage, when performed, including sphincterotomy, when performed, each stent 38601, Endoscopic retrograde cholangiopancreatography (ERCP); with removal of calculi/debris from biliary/pancreatic duct(s) 51748, 26, Endoscopic catheterization of the biliary ductal system, radiological supervision and interpretation CPT copyright 2021 [employer]. All rights reserved. The codes documented in this report are preliminary and upon director sales training review may be revised to meet current compliance requirements. Yevgeniy Sarah DO 03/16/2025 4:35:16 PM This report has been signed electronically. Number of Addenda: 0 Note Initiated On: 03/16/2025 3:24 PM 03/16/25 1635 Date _ Yevgeniy Toussaint Signature: Date (if indicated) CC: No Primary Care Physician; Yevgeniy Sarah DO ~ Date Dictated: 03/16/25 1524 Date Transcribed: Life Sciences Teacher: RF Signed [facility]09-28-2025 Procedure note [facility] Medical Records Department [address] [place] [address] Provation Physician Letter MR#: [id number] Acct: [id number] Name: ALONDRA ARITA Rep #:[id number] : 1975 49 From: Yevgeniy Sarah DO PCP: Care Physician,No Primary Status :ADM IN 03/16/2025 No Primary Care Physician Re : ERCP procedure for Alondra Arita Dear Care Physician This procedure was performed on Sunday, March 16, 2025. My impressions and recommendations [...] PM This report has been signed electronically. 03/16/251634 Date _ Yevgeniy Sarah DO Cosigner Signature: Date (if indicated) CC: PORSCHE Green; PORSCHE Pavon; Dr. Jose Guadalupe Puckett MD; MERE Mcpherson; No Primary Care Physician; Yevgeniy Sarah DO ~ Date Dictated: 03/16/251523 Date Transcribed: Life Sciences Teacher: RF Signed [facility]09-28-2025 Discharge summary Author Jose Guadalupe Puckett [facility] Note Date/Time March 18, 2025 9:46am [facility] Medical Records Department [address] [place] [address] Discharge Summary 03/18/25 0940 MR#: [id number] Acct: [id number] Name: ALONDRA ARITA Rep #:[id number] : 1975 49 From: Jose Guadalupe White PCP: Care Physician,No Primary Status :ADM IN Location: [place] [address] Providers Date of Admission: 03/16/25 Date of Discharge: 03/18/25 Primary Care Physician: No Primary Care Phys Consultations 03/16/25 13:32 Consult: Gastroenterology Routine Consulting Provider: [facility] Reason for Consult: choledocholithiasis EMERGENT Consult: [...] shock if needed Total time spent in [id number] encounter in discussion of advanced directive 17 [...] (Auto) 75.9 H, Lymph % (Auto) 17.5 L,Coamo % (Auto) 4.8, Eos % (Auto) 1.0, [...] Sl. Cloudy, Urine pH 6.0, Ur Specific Bentley 1.010, Urine Protein Negative, Urine Glucose (UA) [...] (Auto) 83.5 H, Lymph % (Auto) 12.9 L,Coamo % (Auto) 3.1, Eos % (Auto) 0.0, [...] to confirm stability possibly helpful. Reading Location: [facility] Medications at Discharge Home Medications amoxicillin 875 [...] an obstructing lesion seen. Reading Location: [facility] Abdomen/Pelvis CT 03/16/25 12:05 IMPRESSION: Fatty liver. Well-defined lesion right lobe of liver favor focal nodular hyperplasia. Follow-up MR of the abdomen with Eovist in 4-6 months to confirm stability possibly helpful. Reading Location: [facility] C-Arm Fluoroscopy 03/16/25 15:55 IMPRESSION: Intraoperative fluoroscopy status post ERCP, as above. Reading Location: [facility] ERCP X-Ray 03/16/25 15:55 IMPRESSION: Intraoperative fluoroscopy status post ERCP, as above. Reading Location: [facility] Physical Exam Narrative Seen and [...] Physician,No Primary Consulting Providers: Jose Guadalupe Puckett; Keara,Yevgeniy; Karlee Green; Apolonia Pavon; Shira Alex Instructions Additional Instructions / Restrictions: Advised edaq-vhm-btvrmzq Tylenol 500 mg to 1000 mg Q6 hourly as needed for fevermore than 102 Fahrenheit and moderate to severe pain respectively. Apoc-luo-tpvahkr, probiotic, lactobacillus/acidophilus 1 tablet twice daily for [...] Self Care Charges/Coding Visit Charges Inpatient E&M: 21641 Disch Hosp >30min 03/18/25 0946 <Electronically signed by Jose Guadalupe Puckett MD> Cosigner Signature (if applicable): CC: Dr. Jose Guadalupe Puckett MD; Dr. Abbie Philip MD; No Primary Care Physician;eYvgeniy Sarah DO~ Signed [facility] Work Phone: [phone]) 927-290409-28-2025 Discharge summary Author Jose Guadalupe Puckett [facility] Note Date/Time March 18, 2025 9:40am [facility] Medical Records Department [address] [place] [address] Instructions for Home/Discharge Instructions 03/18/2535 MR#: [id number] Acct: [id number] Name: ALONDRA ARITA Rep #:[id number] : 1975 49 From: Jose Guadalupe White PCP: Roman Physician,No Primary Status :ADM IN Discharge Instructions [...] Alex Instructions Additional Instructions / Restrictions: Advised svvh-kkv-wyvbsrm Tylenol 500 mg to 1000 mg Q6 hourly as needed for fevermore than 102 Fahrenheit and moderate to severe pain respectively. Nntg-vmo-awbfftl, probiotic, lactobacillus/acidophilus 1 tablet twice daily for [...] Guadalupe Puckett MD>Jose Guadalupe Puckett MD CC: ELECTROMECHANICAL TECHNOLOGIST-Amelia Green; ELECTROMECHANICAL TECHNOLOGISTMaliha Pavon; Dr. Jose Guadalupe Puckett MD; MERE Mcpherson; No Primary Care Physician; Yevgeniy Sarah DO ~ Signed [facility] Work Phone: 1(126) 149-862109-28-2025 Discharge summary [facility] Medical Records Department [address] [place] [address] Discharge Summary 03/18/25 0940 MR#: [id number] Acct: [id number] Name: ALONDRA ARITA Rep #:[id number] : 1975 49 From: Jose Guadalupe White PCP: Care Physician,No Primary Status :ADM IN Location: [place] [address] Providers Date of Admission: 03/16/25 Date of Discharge: 03/18/25 Primary Care Physician: No Primary Care Phys Consultations 03/16/25 13:32 Consult: Gastroenterology Routine Consulting Provider: Saad Gastroenterology Reason for Consult: choledocholithiasis EMERGENT Consult: Judy MD Notified: Yes Date Notified: 03/16/25 Time [...] of choledocholithiasis: [facility] RUQ sonogram shows cholelithiasis [...] shock if needed Total time spent in yabw-mg-pphf encounter in discussion of advanced directive 17 [...] (Auto) 75.9 H, Lymph % (Auto) 17.5 L,Coamo % (Auto) 4.8, Eos % (Auto) 1.0, [...] Sl. Cloudy, Urine pH 6.0, Ur Specific Bentley 1.010, Urine Protein Negative, Urine Glucose (UA) [...] (Auto) 83.5 H, Lymph % (Auto) 12.9 L,Coamo % (Auto) 3.1, Eos % (Auto) 0.0, [...] to confirm stability possibly helpful. Reading Location: JZY-VUZUYMX-AB Medications at Discharge Home Medications amoxicillin 875 [...] an obstructing lesion seen. Reading Location: [facility] Abdomen/Pelvis CT 03/16/25 12:05 IMPRESSION: Fatty liver. Well-defined lesion right lobe of liver favor focal nodular hyperplasia. Follow-up MR of the abdomen with Eovist in 4-6 months to confirm stability possibly helpful. Reading Location: HUU-SDHVAEX-CS C-Arm Fluoroscopy 03/16/25 15:55 IMPRESSION: Intraoperative fluoroscopy status post ERCP, as above. Reading Location: [facility] ERCP X-Ray 03/16/25 15:55 IMPRESSION: Intraoperative fluoroscopy status post ERCP, as above. Reading Location: [facility] Physical Exam Narrative Seen and [...] Alex Instructions Additional Instructions / Restrictions: Advised ciak-ysd-lsuqcqu Tylenol 500 mg to 1000 mg Q6 hourly as needed for fevermore than 102 Fahrenheit and moderate to severe pain respectively. Nhcf-rkp-xoddbkp, probiotic, lactobacillus/acidophilus 1 tablet twice daily for [...] Self Care Charges/Coding Visit Charges Inpatient E&M: 42364 Disch Hosp >30min 03/18/25 0946 Cosigner Signature (if applicable): CC: Dr. Jose Guadalupe Puckett MD; Dr. Abbie Philip MD; No Primary Care Physician;Yevgeniy Sarah DO~ Signed [facility]09-28-2025 Discharge summary [facility] Medical Records Department [address] [place] [address] Instructions for Home/Discharge Instructions 03/18/25 0935 MR#: [id number] Acct: [id number] Name: ALONDRA ARITA Rep #:[id number] : 1975 49 From: Jose Guadalupe White [...] Alex Instructions Additional Instructions / Restrictions: Advised rhuf-mmi-vjmqtgw Tylenol 500 mg to 1000 mg Q6 hourly as needed for fevermore than 102 Fahrenheit and moderate to severe pain respectively. Fwye-qbm-vzzdouu, probiotic, lactobacillus/acidophilus 1 tablet twice daily for [...] can be placed): Home, Self Care 03/18/25 0940Jose Guadalupe Puckett MD CC: ELECTROMECHANICAL TECHNOLOGISTMaliha Green; ELECTROMECHANICAL TECHNOLOGISTDougC Apolonia Pavon; Dr. Jose Guadalupe Puckett MD; MERE Mcpherson; No Primary Care Physician; Yevgeniy Sarah, DO ~ Signed [facility]09-28-2025 [facility] Medical Records Department [address] [place] [address] Discharge Summary 03/18/25 0940 MR#: [id number] Acct: [id number] Name: ALONDRA ARITA Rep #: [id number] : 1975 49 From: Jose Guadalupe Puckett MD PCP: Care Physician,No Primary Status:ADM IN Location: [facility] IP073-5 Providers Date of Admission: 03/16/25 Date of [...] ventilator and/chest co (more content not included)...[facility]09-27-2025 Discharge summary Author Lucretia Bear [facility] Note Date/Time March 17, 2025 3:21pm [facility] Medical Records Department [address] [place] [address] Emergency Department Summary 03/16/25 MR#: [id number] Acct: [id number] Name: ALONDRA ARITA Rep #:[id number] : 1975 49 From: Lucretia Albert PCP: Care Physician,No Primary Status :ADM [facility] HPI - GI History of Present [...] other complaints or concerns at this time [facility] Medical History GERD (gastroesophageal reflux disease) Medical [...] 75.9 H Lymph % (Auto) 17.5 L Coamo % (Auto) 4.8 Eos % (Auto) 1.0 [...] Sl. Cloudy Urine pH 6.0 Ur Specific Bentley 1.010 Urine Protein Negative Urine Glucose (UA) [...] without an obstructing lesion seen. Reading Location: AVT-ZSILDI-OI Abdomen/Pelvis CT 03/16/25 12:05 IMPRESSION: Fatty liver. Well-defined lesion right lobe of liver favor focal nodular hyperplasia. Follow-up MR of the abdomen with Eovist in 4-6 months to confirm stability possibly helpful. Reading Location: VDQ-XKAUBKR-RA Rhythm Strip Rhythm Strip: Sinus Rhythm Rate: 76 Ectopy: None EKG Initial EKG: Attestation: I personally reviewed and interpreted this EKG as follows: Interpretation: Sinus Rhythm Comments: Normal sinus rhythm rate of 76 bpm with sinus arrhythmia Normal axis Normal intervals Normal ST segments Management Discussion w/another healthcare provider: Hospitalist and [employer] C[employer] Discharge Plan Dx/Rx/DC Orders Clinical Impression: Cholelithiasis with acute on chronic cholecystitis Disposition Disposition: Acute Care Hospital [facility] Discharge Date/Time: 03/16/25 12:44 What to do if you have Problems For any increased pain, shortness of breath, bleeding, nausea or vomiting, chestpain, or any unexpected problems, contact your Primary Care Provider. Call [employer] [facility] ([phone]) or report to the closest Emergency Room. Call 911 if necessary. 03/17/25 6407 <Electronically signed by Lucretia Bear DO> Cosigner Signature (if applicable): CC: No Primary Care Physician ~ Signed [facility] Work Phone: 1(542) 187-638109-27-2025 Discharge summary [facility] Medical Records Department [address] [place] [address] Emergency Department Summary 03/16/25 MR#: [id number] Acct: [id number] Name: ALONDRA ARITA Rep #:[id number] : 1975 49 From: Lucretia Albert PCP: Care Physician,No Primary Status :ADM IN Location: [facility] YW860-2 HPI HPI - GI History of Present [...] other complaints or concerns at this time [facility] Medical History GERD (gastroesophageal reflux disease) Medical [...] 75.9 H Lymph % (Auto) 17.5 L Coamo % (Auto) 4.8 Eos % (Auto) 1.0 [...] Sl. Cloudy Urine pH 6.0 Ur Specific Bentley 1.010 Urine Protein Negative Urine Glucose (UA) [...] without an obstructing lesion seen. Reading Location: PXR-EAXZKB-NL Abdomen/Pelvis CT 03/16/25 12:05 IMPRESSION: Fatty liver. Well-defined lesion right lobe of liver favor focal nodular hyperplasia. Follow-up MR of the abdomen with Eovist in 4-6 months to confirm stability possibly helpful. Reading Location: BZX-EXCQIOP-[place] Rhythm Strip Rhythm Strip: Sinus Rhythm Rate: 76 Ectopy: None EKG Initial EKG: Attestation: I personally reviewed and interpreted this EKG as follows: Interpretation: Sinus Rhythm Comments: Normal sinus rhythm rate of 76 bpm with sinus arrhythmia Normal axis Normal intervals Normal ST segments Management Discussion w/another healthcare provider: Hospitalist and [employer] Cutter Discharge Plan Dx/Rx/DC Orders Clinical Impression: Cholelithiasis with acute on chronic cholecystitis Disposition Disposition: Acute Care Hospital [facility] Discharge Date/Time: 03/16/25 12:44 What to do if you have Problems For any increased pain, shortness of breath, bleeding, nausea or vomiting, chestpain, or any unexpected problems, contact your Primary Care Provider. Call [facility] ([phone]) or report tothe closest Emergency Room. Call 911 if necessary. 03/17/25 1521 Cosigner Signature (if applicable): CC: No Primary Care Physician ~ Signed [facility]09-27-2025 Progress note Author Jose Guadalupe Puckett [facility] Note Date/Time March 17, 2025 1:02pm [facility] Medical Records Department [address] [place] [address] Progress Note - Hospitalist 03/17/25 1294 MR#: [id number] Acct: [id number] Name: ALONDRA ARITA Rep #:[id number] : 1975 49 From: Jose Guadalupe White PCP: Care Physician,No Primary Status :ADM IN Location: MS3 MA748-1 Reason for Visit Chief Complaint: Right upper [...] (Auto) 75.9 H, Lymph % (Auto) 17.5 L,Coamo % (Auto) 4.8, Eos % (Auto) 1.0, [...] Sl. Cloudy, Urine pH 6.0, Ur Specific Bentley 1.010, Urine Protein Negative, Urine Glucose (UA) [...] (Auto) 83.5 H, Lymph % (Auto) 12.9 L,Coamo % (Auto) 3.1, Eos % (Auto) 0.0, [...] an obstructing lesion seen. Reading Location: [facility] Abdomen/Pelvis CT 03/16/25 12:05 IMPRESSION: Fatty liver. Well-defined lesion right lobe of liver favor focal nodular hyperplasia. Follow-up MR of the abdomen with Eovist in 4-6 months to confirm stability possibly helpful. Reading Location: [facility] C-Arm Fluoroscopy 03/16/25 15:55 IMPRESSION: Intraoperative fluoroscopy status post ERCP, as above. Reading Location: [facility] ERCP X-Ray 03/16/25 15:55 IMPRESSION: Intraoperative fluoroscopy status post ERCP, as above. Reading Location: [facility] Rhythm Strip Rhythm Strip: Sinus [...] of choledocholithiasis: Patient is being admitted to [facility] floor. RUQ sonogram shows cholelithiasis without signs [...] shock if needed Total time spent in dmve-ge-htkz encounter in discussion of advanced directive 17 minutes. Laboratory Results 03/16/25 09:54: WBC 9.0, RBC 5.93, Hgb 17.0 H, Hct 48.0, MCV 80.9, MCH 28.7, MCHC 35.4, RDW Std Deviation 37.0, RDW Coeff of Ghulam 12.7, Plt Count 237, MPV 10.6, Immature Gran % (Auto) 0.400, Neut % (Auto) 75.9 H, Lymph % (Auto) 17.5 L,Coamo % (Auto) 4.8, Eos % (Auto) 1.0, [...] Sl. Cloudy, Urine pH 6.0, Ur Specific Bentley 1.010, Urine Protein Negative, Urine Glucose (UA) [...] (Auto) 83.5 H, Lymph % (Auto) 12.9 L,Coamo % (Auto) 3.1, Eos % (Auto) 0.0, [...] to confirm stability possibly helpful. Reading Location: [facility] Charges/Coding Visit Charges Inpatient E&M: 98785 Subs Hosp L2 03/17/25 1302 <Electronically signed by Jose Guadalupe Puckett MD> Cosigner Signature (if applicable): CC: ~ Signed [facility] Work Phone: 1(965) 958-428109-27-2025 Progress note [facility] Medical Records Department [address] [facility] [place] [address] Progress Note - Hospitalist 03/17/25 3482 MR#: [id number] Acct: [id number] Name: ALONDRA ARITA Rep #:[id number] : 1975 49 From: Jose Guadalupe White PCP: Care Physician,No Primary Status :ADM IN Location: [place] [address] Reason for Visit Chief Complaint: Right upper [...] (Auto) 75.9 H, Lymph % (Auto) 17.5 L,Coamo % (Auto) 4.8, Eos % (Auto) 1.0, [...] Sl. Cloudy, Urine pH 6.0, Ur Specific Bentley 1.010, Urine Protein Negative, Urine Glucose (UA) [...] (Auto) 83.5 H, Lymph % (Auto) 12.9 L,Coamo % (Auto) 3.1, Eos % (Auto) 0.0, [...] an obstructing lesion seen. Reading Location: [facility] Abdomen/Pelvis CT 03/16/25 12:05 IMPRESSION: Fatty liver. Well-defined lesion right lobe of liver favor focal nodular hyperplasia. Follow-up MR of the abdomen with Eovist in 4-6 months to confirm stability possibly helpful. Reading Location: OKV-GLCGYCP-NT C-Arm Fluoroscopy 03/16/25 15:55 IMPRESSION: Intraoperative fluoroscopy status post ERCP, as above. Reading Location: HRO-KCTFWQU-XJ ERCP X-Ray 03/16/25 15:55 IMPRESSION: Intraoperative fluoroscopy status post ERCP, as above. Reading Location: CQH-UXKTRGB-RA Rhythm Strip Rhythm Strip: Sinus Rhythm Rate: [...] of choledocholithiasis: [facility]. RUQ sonogram shows cholelithiasis [...] shock if needed Total time spent in ttje-ws-zagi encounter in discussion of advanced directive 17 minutes. Laboratory Results 03/16/25 09:54: WBC 9.0, RBC 5.93, Hgb 17.0 H, Hct 48.0, MCV 80.9, MCH 28.7, MCHC 35.4, RDW Std Deviation 37.0, RDW Coeff of Ghulam 12.7, Plt Count 237, MPV 10.6, Immature Gran % (Auto) 0.400, Neut % (Auto) 75.9 H, Lymph % (Auto) 17.5 L,Coamo % (Auto) 4.8, Eos % (Auto) 1.0, [...] Sl. Cloudy, Urine pH 6.0, Ur Specific Bentley 1.010, Urine Protein Negative, Urine Glucose (UA) [...] (Auto) 83.5 H, Lymph % (Auto) 12.9 L,Coamo % (Auto) 3.1, Eos % (Auto) 0.0, [...] to confirm stability possibly helpful. Reading Location: CDM-HYOMAIU-VZ Charges/Coding Visit Charges Inpatient E&M: 58754 Subs Hosp L2 03/17/25 1302 Cosigner Signature (if applicable): CC: ~ Signed [facility]09-26-2025 Radiology Diagnostic study note [facility] Imaging Services [address] [place] [address] ERCP Biliary Only MR#: [id number] Acct: [id number] Name: ALONDRA ARITA Rep #: [id number] : 1975 M 49 From: Tesfaye Elliott MD PCP: Care Physician,No Primary Status: ADM IN Study:ERCP Biliary Only Date of Exam: Exam# [id number] Ordering Dr: Lobito Sarah DO EXAM: ERCP [...] status post ERCP, as above. Reading Location: JWQ-ZJXRYYL-LT CC: No Primary Care Physician; DO Funmilayo Hood Life Sciences Teacher: Signed [facility]09-26-2025 Radiology Diagnostic study note [facility] Imaging Services [address] [place] [address] O.R. Fluoro for C-Arm MR#: [id number] Acct: [id number] Name: ALONDRA ARITA Rep #: [id number] : 1975 M 49 From: Tesfaye Elliott MD PCP: Care Physician,No Primary Status: ADM IN Study:O.R. Fluoro for C-Arm Date of Exam: 03/16/25 Exam# [id number] Ordering Dr: Lobito Sarah DO EXAM: ERCP [...] status post ERCP, as above. Reading Location: LCG-XIXBICB-AH CC: No Primary Care Physician; DO Funmilayo Hood Life [employer] Teacher: Signed [facility]09-26-2025 Consult note Author Armando Gomez [facility] Note Date/Time March 18, 2025 12:45pm [facility] Medical Records Department [address] [place] [address] Anesthesia Postop Eval II 03/16/25 1655 MR#: [id number] Acct: [id number] Name: ALONDRA ARITA Rep #:[id number] : 1975 49 From: Armando White PCP: Care Physician,No Primary Status :ADM IN Y Race: C Location: [place] [address] Anesthesia Postop Eval I Sum Anesthesia Postop [...] Cosigner Signature: Date CC: ~ Signed [facility] Work Phone: 1(155) 841-897009-26-2025 Consult note Author Yevgeniy Sarah [facility] Note Date/Time March 16, 2025 3:40pm [facility] Medical Records Department [address] [place] [address] Consultation - GI 03/16/25 1537 MR#: [id number] Acct: [id number] Name: ALONDRA ARITA Rep #:[id number] : 1975 49 From: Yevgeniy Sarah DO PCP: Care Physician,No Primary Status :ADM IN Location: [place] [address] HPI Consult Data Date of Consult: 03/16/25 [...] and chalupa) around 6 PM and then ikejjn39 PM had a cold cut sandwich and [...] (Auto) 75.9 H, Lymph % (Auto) 17.5 L,Coamo % (Auto) 4.8, Eos % (Auto) 1.0, [...] Sl. Cloudy, Urine pH 6.0, Ur Specific Bentley 1.010, Urine Protein Negative, Urine Glucose (UA) [...] without an obstructing lesion seen. Reading Location: YAX-XGQAXO-BS Abdomen/Pelvis CT 03/16/25 12:05 IMPRESSION: Fatty liver. Well-defined lesion right lobe of liver favor focal nodular hyperplasia. Follow-up MR of the abdomen with Eovist in 4-6 months to confirm stability possibly helpful. Reading Location: HRH-YOTVOVU-NV Assessment & Plan Assessment/Plan (1) Cholelithiasis with [...] Lipase 49. Charges/Coding Visit Charges Inpatient E&M: 49731 Init Hosp L3 03/16/25 1540 <Electronically signed by Yevgeniy Sarah DO> Cosigner Signature (if applicable): CC: No Primary Care Physician~ Signed [facility] Work Phone: 1(340) 196-874409-26-2025 Consult note Author Armando Gomez [facility] Note Date/Time March 16, 2025 2:34pm [facility] Medical Records Department [address] [place] [address] Pre-Anesthesia Evaluation 03/16/25 1433 MR#: [id number] Acct: [id number] Name: ALONDRA ARITA Rep #:[id number] : 1975 49 From: Armando White PCP: Care Physician,No Primary Status :ADM IN Y Race: C Location: [place] 144185 -1 ASA Classification* ASA Classification ASA Classification: [...] Procedure(s): ERCP Anesthesia History Anesthesia History - crown blocker: Anesthesia History - crown blocker Hx Hospitalization Any Problems With Anesthesia No [...] take am of surgery PONV PONV - crown blocker: PONV - crown blocker Female HX of Motion Sickness HX of N/V After Surgery Non-Smoker Duration of Surgery greater than 60 minutes Number of Risk Factors PONV Score Height & Weight Height & Weight: Anesthesia: Height & Weight Height 6 ft 8 in 03/16/25 13:04 Weight: 106.141 kg 03/16/25 13:04 Body Mass Index (BMI) 25.7 03/16/25 13:04 Respiratory Assessment Respiratory Assessment - crown blocker: Respiratory Tract Infection Hx - crown blocker Hx Respiratory Tract Infection No 03/16/25 13:51 STOP Sleep Apnea STOP Sleep Apnea - crown blocker: STOP Sleep Apnea - crown blocker Hx Hypertension No 03/16/25 13:53 Hx Sleep [...] Tobacco Use History Tobacco Use History - crown blocker: Tobacco Use History - crown blocker Tobacco Use Smoking Status Never smoker 03/16/25 13:04 Hx Tobacco Use No 03/16/25 13:04 Years Smoking Packs Smoked per Day Smoking Cessation Date was within the last 15 years Hx Smoking Cessation Date Hx Smoking Cessation Counseling Hematologic Medial History Hematologic Hx - crown blocker: 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 Hx of Blood Transfusion No 03/16/25 13:04 [...] confused, unrespo /Reproduction History /Reproductive History - crown blocker: /Reproductive Hx- crown blocker Hx Now No 03/16/25 13:51 Gestational Age [...] mls @ 15 mls/hr 03/16/25 13:09 IV .[id number] PRN Saline Flush Sodium Chloride 250 mls @ 15 mls/hr 03/16/25 13:09 IV .[id number] PRN Additional IVPB Infusion Piperacillin Sod/Tazobactam 50 mls @ 12.5 mls/hr 03/16/25 13:30 03/16/25 13:40 Sod 3.375 gm/ Sodium Chloride IV 12.5 mls/hr Q8 DIA Administration Sodium Chloride 1,000 mls @ 75 mls/hr 03/16/25 13:32 03/16/25 13:43 IV 03/17/25 16:11 75 mls/hr .[id number] DIA Administration Influenza Virus Vacc Trival Recomb [...] no additional complaints, except as documented. 03/16/25 2904 <Electronically signed by Armando Gomez MD> Date _ Armando Gomez MD Cosigner Signature: Date CC: ~ Signed [facility] Work Phone: 1(650) 407-772509-26-2025 History and physical note Author Jose Guadalupe Puckett [facility] Note Date/Time March 16, 2025 2:14pm [facility] Medical Records Department [address] [address] H&P Exam - Hospitalist 03/16/25 1334 MR#: [id number] Acct: [id number] Name: LYLAALONDRA WILLIAN Rep #:[id number] : 1975 49 From: Jose Guadalupe White PCP: Care Physician,No Primary Status :ADM IN Location: [facility]3 BW868-5 [facility] - General General Date of Admission: 03/16/25 [...] dilatation, liver lesion, described in assessment plan. [facility] Medical History GERD (gastroesophageal reflux disease) Medical [...] (Auto) 75.9 H, Lymph % (Auto) 17.5 L,Coamo % (Auto) 4.8, Eos % (Auto) 1.0, [...] Sl. Cloudy, Urine pH 6.0, Ur Specific Bentley 1.010, Urine Protein Negative, Urine Glucose (UA) [...] without an obstructing lesion seen. Reading Location: XMM-CFCTYJ-QO Assessment & Plan Assessment/Plan (1) Cholelithiasis with acute on chronic cholecystitis: PLAN: Plan 49-year-old gentleman came to ED with right upper and epigastric abdominal pain since 1:30 AM today with nausea. 1. Acute on chronic GB colic with cholelithiasis with suspicion of choledocholithiasis: Patient is being admitted to [facility] floor. RUQ sonogram shows cholelithiasis without signs [...] shock if needed Total time spent in awnb-xv-lgxa encounter in discussion of advanced directive 17 minutes. Laboratory Results 03/16/25 09:54: WBC 9.0, RBC 5.93, Hgb 17.0 H, Hct 48.0, MCV 80.9, MCH 28.7, MCHC 35.4, RDW Std Deviation 37.0, RDW Coeff of Ghulam 12.7, Plt Count 237, MPV 10.6, Immature Gran % (Auto) 0.400, Neut % (Auto) 75.9 H, Lymph % (Auto) 17.5 L,Coamo % (Auto) 4.8, Eos % (Auto) 1.0, [...] Sl. Cloudy, Urine pH 6.0, Ur Specific Bentley 1.010, Urine Protein Negative, Urine Glucose (UA) [...] to confirm stability possibly helpful. Reading Location: [facility] Charges/Coding Visit Charges Inpatient E&M: 98405 Init Hosp L3 Procedures Hospitalists Procedures: 56169 Advncd Care Plan 30 Min 03/16/25 1414 <Electronically signed by Jose Guadalupe Puckett MD> Cosigner Signature (if applicable): CC: Dr. Jose Guadalupe Puckett MD; Dr. Abbie Philip MD; No Primary Care Physician;Yevgeniy Sarah, ~ Signed [facility] Work Phone: 1(507) 451-576109-26-2025 Consult note [facility] Medical Records Department [address] [place] [address] Consultation - GI 03/16/25 1537 MR#: [id number] Acct: [id number] Name: ALONDRA ARITA Rep #:[id number] : 1975 49 From: Yevgeniy Sarah DO PCP: Care Physician,No Primary Status :ADM IN Location: [facility] GG704-9 HPI Consult Data Date of Consult: 03/16/25 [...] and chalupa) around 6 PM and then [id number] PM had a cold cut sandwich and [...] (Auto) 75.9 H, Lymph % (Auto) 17.5 L,Coamo % (Auto) 4.8, Eos % (Auto) 1.0, [...] Sl. Cloudy, Urine pH 6.0, Ur Specific Bentley 1.010, Urine Protein Negative, Urine Glucose (UA) [...] an obstructing lesion seen. Reading Location: [facility] Abdomen/Pelvis CT 03/16/25 12:05 IMPRESSION: Fatty liver. Well-defined lesion right lobe of liver favor focal nodular hyperplasia. Follow-up MR of the abdomen with Eovist in 4-6 months to confirm stability possibly helpful. Reading Location: [id number] Assessment & Plan Assessment/Plan (1) Cholelithiasis with [...] Lipase 50. Charges/Coding Visit Charges Inpatient E&M: 78845 Init Hosp L3 03/16/25 1540 Cosigner Signature (if applicable): CC: No Primary Care Physician~ Signed [facility]09-26-2025 Evaluation note* Diagnosis Onset Date Resolution Status Admit Date Cholelithiasis with acute on chronic cholecystitis acute March 16, 2025 12:53pm [facility] Work Phone: 1(682) 418-491809-26-2025 Evaluation note* Diagnosis Onset Date Resolution Status Admit Date Cholelithiasis with acute on chronic cholecystitis deleted March 16, 2025 12:53pm Cholelithiasis acute March 8:39am GERD (gastroesophageal reflu x disease) acute March 23 8:39am History of incisional hernia repair acute April 09 2:32pm Intractable vomiting acute 2024 2:32pm S/P laparoscopic cholecystectomy acute April 09 2:32pm Incisional hernia with bowel obstruction resolved April 09 2:32pm SBO (small bowel obstruction) resolv ed April 09, 2025 2:32pm [facility] Work Phone: 1(929) 185-992809-26-2025 Evaluation note* Diagnosis Onset Date Resolution Status Admit Date Cholelithiasis with acute on chronic cholecystitis deleted March 16, 2025 12:53pm Cholelithiasis acute March 8:39am GERD (gastroesophageal reflu x disease) acute March 23 8:39am History of incisional hernia repair acute April 09 2:32pm S/P laparoscopic cholecystectomy acute April 09 2:32pm Incisional hernia with bowel obstruction resolved April 09 2:32pm Intractable vomiting resolved 2024 2:32pm SBO (small bowel obstruction) resolv ed April 09, 2025 2:32pm History of incisional hernia repair acute April 23 1:06pm S/P laparoscopic cholecystectomy acute April 23 1:06pm Screening for colon cancer acute April 23, 2025 1:06pm Cholelithiasis acute April 252024 8:33am History of incisional hernia repair acute April 25 8:33am S/P laparoscopic cholecystectomy acute April 25 8:33am [facility] Work Phone: 1(931) 577-825109-26-2025 Consult note [facility] Medical Records Department [address] [place] [address] Pre-Anesthesia Evaluation 03/16/25 1433 MR#: [id number] Acct: [id number] Name: ALONDRA ARITA Rep #:[id number] : 1975 49 From: Armando White PCP: Care Physician,No Primary Status :ADM IN Y Race: C Location: [facility]315 -1 ASA Classification* ASA Classification ASA Classification: [...] Procedure(s): ERCP Anesthesia History Anesthesia History - crown blocker: Anesthesia History - crown blocker Hx Hospitalization Any Problems With Anesthesia No [...] take am of surgery PONV PONV - crown blocker: PONV - crown blocker Female HX of Motion Sickness HX of N/V After Surgery Non-Smoker Duration of Surgery greater than 60 minutes Number of Risk Factors PONV Score Height & Weight Height & Weight: Anesthesia: Height & Weight Height 6 ft 8 in 03/16/25 13:04 Weight: 106.141 kg 03/16/25 13:04 Body Mass Index (BMI) 25.7 03/16/25 13:04 Respiratory Assessment Respiratory Assessment - crown blocker: Respiratory Tract Infection Hx - crown blocker Hx Respiratory Tract Infection No 03/16/25 13:51 STOP Sleep Apnea STOP Sleep Apnea - crown blocker: STOP Sleep Apnea - crown blocker Hx Hypertension No 03/16/25 13:53 Hx Sleep [...] Tobacco Use History Tobacco Use History - crown blocker: Tobacco Use History - crown blocker Tobacco Use Smoking Status Never smoker 03/16/25 13:04 Hx Tobacco Use No 03/16/25 13:04 Years Smoking Packs Smoked per Day Smoking Cessation Date was within the last 15 years Hx Smoking Cessation Date Hx Smoking Cessation Counseling Hematologic Medial History Hematologic Hx - crown blocker: 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 Hx of Blood Transfusion No 03/16/25 13:04 [...] confused, unrespo /Reproduction History /Reproductive History - crown blocker: /Reproductive Hx- crown blocker Hx Now No 03/16/25 13:51 Gestational Age [...] mls @ 15 mls/hr 03/16/25 13:09 IV .[id number] PRN Saline Flush Sodium Chloride 250 mls @ 15 mls/hr 03/16/25 13:09 IV .[id number] PRN Additional IVPB Infusion Piperacillin Sod/Tazobactam 50 mls @ 12.5 mls/hr 03/16/25 13:30 03/16/25 13:40 Sod 3.375 gm/ Sodium Chloride IV 12.5 mls/hr Q8 DIA Administration Sodium Chloride 1,000 mls @ 75 mls/hr 03/16/25 13:32 03/16/25 13:43 IV 03/17/25 16:11 75 mls/hr .[id number] DIA Administration Influenza Virus Vacc Trival Recomb [...] Cosigner Signature: Date CC: ~ Signed [facility]09-26-2025 History and physical note [facility] Medical Records Department [address] [place] [address] H&P Exam - Hospitalist 03/16/25 1334 MR#: [id number] Acct: [id number] Name: ALONDRA ARITA Rep #:[id number] : 1975 49 From: Jose Guadalupe White PCP: Care Physician,No Primary Status :ADM IN Location: [facility] [id number] HPI - General General Date of Admission: [...] dilatation, liver lesion, described in assessment plan. [facility] Medical History GERD (gastroesophageal reflux disease) Medical [...] (Auto) 75.9 H, Lymph % (Auto) 17.5 L,Coamo % (Auto) 4.8, Eos % (Auto) 1.0, [...] Sl. Cloudy, Urine pH 6.0, Ur Specific Bentley 1.010, Urine Protein Negative, Urine Glucose (UA) [...] an obstructing lesion seen. Reading Location: [facility] Assessment & Plan Assessment/Plan (1) Cholelithiasis with acute on chronic cholecystitis: PLAN: Plan 49-year-old gentleman came to ED with right upper and epigastric abdominal pain since 1:30 AM todaywith nausea. 1. Acute on chronic GB colic with cholelithiasis with suspicion of choledocholithiasis: [facility] RUQ sonogram shows cholelithiasis [...] shock if needed Total time spent in [id number] encounter in discussion of advanced directive 17 minutes. Laboratory Results 03/16/25 09:54: WBC 9.0, RBC 5.93, Hgb 17.0 H, Hct 48.0, MCV 80.9, MCH 28.7, MCHC 35.4, RDW Std Deviation 37.0, RDW Coeff of Ghulam 12.7, Plt Count 237, MPV 10.6, Immature Gran % (Auto) 0.400, Neut % (Auto) 75.9 H, Lymph % (Auto) 17.5 L,Coamo % (Auto) 4.8, Eos % (Auto) 1.0, [...] Sl. Cloudy, Urine pH 6.0, Ur Specific Bentley 1.010, Urine Protein Negative, Urine Glucose (UA) [...] to confirm stability possibly helpful. Reading Location: [facility] Charges/Coding Visit Charges Inpatient E&M: 53924 Init Hosp L3 Procedures Hospitalists Procedures: 28173 Advncd Care Plan 30 Min 03/16/25 1414 Cosigner Signature (if applicable): CC: Dr. Jose Guadalupe Puckett MD; Dr. Abbie Philip MD; No Primary Care Physician;Yevgeniy Sarah, DO~ Signed [facility]09-26-2025 Radiology Diagnostic study note [facility] Imaging Services [address] [place], [place] [id number] CT Abd/Pelvis W/WO Contrast MR#: [id number] Acct: [id number] Name: ALONDRA ARITA Rep #: [id number] : 1975 M 49 From: Rizwan Ortega MD PCP: Care Physician,No Primary Status: ADM IN Study:CT Abd/Pelvis W/WO Contrast Date of Exa m: 03/16/25 Exam# [id number] Ordering Dr: Gillian Puckett MD PROCEDURE: CT [...] to confirm stability possibly helpful. Reading Location: [id number] CC: Dr. Jose Guadalupe Puckett MD; No Primary Care Physician ~ Life Sciences Teacher: Signed [facility]09-26-2025 Radiology Diagnostic study note [facility] Imaging Services [address] [place], [place] [id number] Gallbladder MR#: [id number] Acct: [id number] Name: ALONDRA ARITA Rep #: [id number] : 1975 M 49 From: Pippa Early MD PCP: Care Physician,No Primary Status: REG ER Study:Gallbladder Date of Exam: 03/16/25 Exam# [id number] Ordering Dr: Amelia Bear DO PROCEDURE: GALLBLADDER [...] without an obstructing lesion seen. Reading Location: [id number] CC: Dr. Lucretia Bear, DO; No Primary Care Physician ~ Life Sciences Teacher: [facility]igned [facility] Author Armando Gomez [facility] Note Date/Time March 16, 2025 2:34pm [facility] Medical Records Department [address] [place] [address] Pre-Anesthesia Evaluation 03/16/25 1433 MR#: [id number] Acct: [id number] Name: ALONDRA ARITA Rep #:[id number] : 1975 49 From: Armando White PCP: Care Physician,No Primary Status :ADM IN Y Race: C Location: [facility] MS315 -1 ASA Classification* ASA Classification ASA [...] Procedure(s): ERCP Anesthesia History Anesthesia History - crown blocker: Anesthesia History - crown blocker Hx Hospitalization Any Problems With Anesthesia No [...] take am of surgery PONV PONV - crown blocker: PONV - crown blocker Female HX of Motion Sickness HX of N/V After Surgery Non-Smoker Duration of Surgery greater than 60 minutes Number of Risk Factors PONV Score Height & Weight Height & Weight: Anesthesia: Height & Weight Height 6 ft 8 in 03/16/25 13:04 Weight: 106.141 kg 03/16/25 13:04 Body Mass Index (BMI) 25.7 03/16/25 13:04 Respiratory Assessment Respiratory Assessment - crown blocker: Respiratory Tract Infection Hx - crown blocker Hx Respiratory Tract Infection No 03/16/25 13:51 STOP Sleep Apnea STOP Sleep Apnea - crown blocker: STOP Sleep Apnea - crown blocker Hx Hypertension No 03/16/25 13:53 Hx Sleep [...] Tobacco Use History Tobacco Use History - crown blocker: Tobacco Use History - crown blocker Tobacco Use Smoking Status Never smoker 03/16/25 13:04 Hx Tobacco Use No 03/16/25 13:04 Years Smoking Packs Smoked per Day Smoking Cessation Date was within the last 15 years Hx Smoking Cessation Date Hx Smoking Cessation Counseling Hematologic Medial History Hematologic Hx - crown blocker: 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 Hx of Blood Transfusion No 03/16/25 13:04 [...] confused, unrespo /Reproduction History /Reproductive History - crown blocker: /Reproductive Hx- crown blocker Hx Now No 03/16/25 13:51 Gestational Age [...] mls @ 15 mls/hr 03/16/25 13:09 IV .[id number] PRN Saline Flush Sodium Chloride 250 mls @ 15 mls/hr 03/16/25 13:09 IV .[id number] PRN Additional IVPB Infusion Piperacillin Sod/Tazobactam 50 mls @ 12.5 mls/hr 03/16/25 13:30 03/16/25 13:40 Sod 3.375 gm/ Sodium Chloride IV 12.5 mls/hr Q8 DIA Administration Sodium Chloride 1,000 mls @ 75 mls/hr 03/16/25 13:32 03/16/25 13:43 IV 03/17/25 16:11 75 mls/hr .[id number] DIA Administration Influenza Virus Vacc Trival Recomb [...] no additional complaints, except as documented. 03/16/25 2574 <Electronically signed by Armando Gomez MD> Date _ Armando Gomez MD Cosigner Signature: Date CC: ~ Signed [facility] Work Phone: Consult note Author Yevgeniy Friend [facility] Note Date/Time March 16, 2025 3:40pm [facility] Medical Records Department [address] [place] [address] Consultation - GI 03/16/25 1537 MR#: [id number] Acct: [id number] Name: ALONDRA ARITA Rep #:[id number] : 1975 49 From: Yevgeniy Sarah DO PCP: Care Physician,No Primary Status :ADM IN [facility] Consult Data Date of Consult: 03/16/25 [...] and chalupa) around 6 PM and then [id number] PM had a cold cut sandwich and [...] (Auto) 75.9 H, Lymph % (Auto) 17.5 L,Coamo % (Auto) 4.8, Eos % (Auto) 1.0, [...] Sl. Cloudy, Urine pH 6.0, Ur Specific Bentley 1.010, Urine Protein Negative, Urine Glucose (UA) [...] without an obstructing lesion seen. Reading Location: [id number] Abdomen/Pelvis CT 03/16/25 12:05 IMPRESSION: Fatty liver. Well-defined lesion right lobe of liver favor focal nodular hyperplasia. Follow-up MR of the abdomen with Eovist in 4-6 months to confirm stability possibly helpful. Reading Location: [id number] Assessment & Plan Assessment/Plan (1) Cholelithiasis with [...] Lipase 50. Charges/Coding Visit Charges Inpatient E&M: 93797 Init Hosp L3 03/16/25 1540 <Electronically signed by Yevgeniy Friend DO> Cosigner Signature (if applicable): CC: No Primary Care Physician~ Signed [facility] Work Phone: Consult note Author Armando Gomez [facility] Note Date/Time March 18, 2025 12:45pm [facility] Medical Records Department [address] [place] [address] Anesthesia Postop Eval II 03/16/25 1655 MR#: [id number] Acct: [id number] Name: ALONDRA ARITA Rep #:[id number] : 1975 49 From: Armando White PCP: Care Physician,No Primary Status :ADM IN Y Race: C Location: [facility] MS315 -1 Anesthesia Postop Eval I Sum Anesthesia Postop [...] No Vomiting: No Complications Anesthesia Complication: No 03/16/25 1655 <Electronically signed by Armando Gomez MD> Date _ Armando Gomez MD Cosigner Signature: Date CC: ~ Signed [facility] Work Phone: Consult note Author Armando Gomez [facility] Note Date/Time April 04, 2025 6 :48pm [facility] Medical Records Department [address] [place] [address] Anesthesia Postop Eval II 04/04/257 MR#: [id number] Acct: [id number] Name: ALONDRA ARITA Rep #:[id number] : 1975 49 From: Armando White PCP: Care Physician,No Primary Status :REG SDC Y Race: C Location: [place] [address]-1 Anesthesia Postop Eval I Sum Postop Eval Completion status Anesthesia document: Postop Eval 1 completed: Yes Anesthesia Postop Eval I Summary Anesthesia Postop Eval I Summary: Anesthesia Postop Eval I: Assessment Summary Airway patent Yes 04/04/25 15:46 FLAT SORTING MACHINE [email or web address] Spontaneous unlabored Yes 04/04/25 15:46 FLAT SORTING MACHINE [email or web address] respirations Mental status Awake,Calm 04/04/25 15:46 FLAT SORTING MACHINE [email or web address].[email or web address] nausea No 04/04/25 15:46 FLAT SORTING MACHINE [email or web address].[email or web address] Vomiting No 04/04/25 15:46 FLAT SORTING MACHINE [email or web address] Anesthesia Postop Eval I: Fluid Summary Crystalloid volume administer 1,600 04/04/25 15:46 FLAT SORTING MACHINE CLERK.PKEL (ml) Colloids volume administered ( ml) Blood Product volume administered (ml) Total IV fluid infused 1,600 04/04/25 15:46 FLAT SORTING MACHINE [email or web address].[email or web address] Anesthesia Postop Eval I: Summary Notes Anesthesia Complication No 04/04/25 15:46 FLAT SORTING MACHINE [email or web address].[email or web address] Anesthesia Complication Comment: Post-operative progress note Anesthesia: Postop Eval II Evaluation Mental status: Awake and Calm Pain Level: 1 nausea: No Vomiting: No Complications Anesthesia Complication: No 04/04/25 1737 <Electronically signed by Armando Gomez MD> Date _ Armando Gomez MD Cosigner Signature: Date CC: ~ Signed [facility] Work Phone: Consult note [facility] Medical Records Department [address] [place] [address] Pre-Anesthesia Evaluation 04/07/25 1555 MR#: [id number] Acct: [id number] Name: ALONDRA ARITA Rep #:[id number] : 1975 49 From: Jamar Gonzalez MD PCP: Care Physician,No Primary Status :REG SDC Y Race: C Location: [place] [address] ASA Classification* ASA Classification ASA Classification: 2 and E Assessment & Plan Anesthesia* Anesthesia [...] risk assessments. Anesthesia Type Anesthesia Type: General Anesthesia Focused Assessment* Temperature: 98.9 F Pulse Rate: 88 Blood Pressure: 134/84 Respiratory Rate: 16 Pulse Ox: 98 Airway Assessment Mouth opens: >3 cm Mallampati Score: II Labs Anesthesia Preop lab: CBC WBC, (4.4-11.0) 12.5 K/mm3 H Today, 14:15 RBC, (4.6-6.2) 5.86 M/mm3 Today, 14:15 Hgb, (13.0-16.5) 16.3 g/dL Today, 14:15 Hct, (40-54) 47.1 % Today, 14:15 Plt Count, (150-450) 346 K/mm3 Today, 14:15 CHEMISTRY Potassium, (3.3-5.1) 3.6 mmol/L Today, 14:15 Sodium, (133-145) 137 mmol/L Today, 14:15 BUN, (4-19) 16 mg/dL Today, 14:15 Creatinine, (0.70-1.20) 0.93 mg/dL Today, 14:15 Glucose, (70-99) 119 mg/dL H Today, 14:15 COAG PT, (11.7-14.9) 13.3 SECONDS 03/16/25, 09:54 Pre-Assessment Diagnosis/Proposed Procedure Planned Operative Procedure(s): repair of iatrogenic supraumbilical hernia Anesthesia History Anesthesia History - crown blocker: Anesthesia History - crown blocker Hx Hospitalization Yes: 03/16/25 gallstones/ 03/29/25 09:18 ercp Any Problems With Anesthesia No 03/29/25 09:18 Cholinesterase deficiency No 03/29/25 09:18 You/Your Family Experience No 03/29/25 09:18 fever (hyperthermia) with Relationship Recent Exposure to Contagious No 04/04/25 12:47 Disease Does patient have nerve No 03/29/25 09:18 stimulator Patient instructed to have device shut off --Does patient have Pacemaker or ICD? When Was Last Pacemaker Check QUESTION #4 FULL TEXT: You/Your Family Experience fever (hyperthermia) with Anesthesia Last Oral Intake Last Oral intake: Last Oral Intake NPO since Meds taken in AM with sips of water? Meds patient instructed to take am of surgery PONV PONV - crown blocker: PONV - crown blocker Female HX of Motion Sickness HX of N/V After Surgery Non-Smoker Duration of Surgery greater than 60 minutes Number of Risk Factors PONV Score Height & Weight Height & Weight: Anesthesia: Height & Weight Height 5 ft 7 in 04/07/25 13:36 Weight: 101.151 kg 04/07/25 13:36 Body Mass Index (BMI) 34.9 04/07/25 13:36 Respiratory Assessment Respiratory Assessment - crown blocker: Respiratory Tract Infection Hx - crown blocker Hx Respiratory Tract Infection No 03/29/25 09:18 STOP Sleep Apnea STOP Sleep Apnea - crown blocker: STOP Sleep Apnea - crown blocker Hx Hypertension No 03/29/25 09:18 Hx Sleep Apnea No 04/04/25 16:45 CPAP BIPAP Do you snore loudly (louder than talking or can be heard Do you often feel tired/ fatigued/ sleepy during daytime? Has anyone observed you stop breathing during sleep? STOP Results QUESTION #5 FULL TEXT : Do you snore loudly (louder than talking or can be heard through closeddoors)? 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 Specify any problems Hx of Preganancy in last 3 Months Nurse Filling Out Transfusion & Questions: Date: Time: Patient unable to answer at this time (ie. confused, unrespo /Reproduction History /Reproductive History - crown blocker: /Reproductive Hx- crown blocker Hx Now Gestational Age (in weeks): EDC: Hx Hx Para Hx Section SAB No 03/29/25 09:18 [facility] Medical History (Updated 04/07/25 @ 15:[address] Rich Ramirez MD) Wears glasses Fatty liver Heartburn Gastric reflux Non-smoker Nausea Abdominal pain GERD (gastroesophageal reflux disease) Home Medications ?Medication ?Instructions ?Recorded ?Last Taken ?Type omeprazole 40 mg capsule,delayed 40 mg PO QDAY #30 cap s 03/23/25 04/03/25 Rx release oxycodone 5 mg capsule 5 mg PO Q6H PRN pain 3 days #10 04/04/25 Unknown Rx caps Allergy/AdvReac Type Severity Reaction Status Date / Time No Known Allergies Allergy Verified 04/07/25 13:36 Surgical History S/P laparoscopic cholecystectomy History of wisdom tooth extraction (~06/21/94) Hx of LASIK History of ERCP (03/16/25) Social History Smoking Status: Never smoker alcohol intake: never substance use type: does not use Review of Systems (Anesthesia) ROS Narrative System reviewed and no additional complaints, except as documented. 04/07/25 1556 MD> Date _ Jamar Gonzalez MD Cosign Signature: Date CC: ~ [facility] Medical Records Department [address] [place] [address] Anesthesia Postop Eval I 04/07/25 1704 MR#: [id number] Acct: [id number] Name: ALONDRA ARITA Rep #:[id number] : 1975 49 From: Jamar Gonzalez MD PCP: Care Physician,No Primary Status :REG SDC Y Race: C Location: [place] [address] Anesthesia: Postop Eval I Current Vital Signs Temperature: 97 F Pulse Rate: 81 Blood Pressure: 126/68 Respiratory Rate: 14 Pulse Ox: 94 Assessment Airway patent: Yes Spontaneous unlabored respirations: Yes nausea: No Vomiting: No Anesthesia Complication: No Fluid Hydration Crystalloid volume administer (ml): 1,200 Total IV fluid infused: 1,200 Progress Note Anesthesia document: Postop Eval 1 completed: Yes 04/07/25 1708 MD> Date _ Jamar Gonzalez MD Cosigner Signature: Date CC: ~ [facility]igned [facility] Medical Records Department [address] [place] [address] Anesthesia Postop Eval II 04/07/25 1708 MR#: [id number] Acct: [id number] Name: ALONDRA ARITA Rep #:[id number] : 1975 49 From: Jamar Gonzalez MD PCP: Care Physician,No Primary Status :REG SDC Y Race: C Location: [place] [address] Anesthesia Postop Eval I Sum Postop Eval Completion status Anesthesia document: Postop Eval 1 completed: Yes Anesthesia Postop Eval I Summary Anesthesia Postop Eval I Summary: Anesthesia Postop Eval I: Assessment Summary Airway patent Yes 04/07/25 17:04 Spontaneous unlabored Yes 04/07/25 17:04 respirations Mental status nausea No 04/07/25 17:04 Vomiting No 04/07/25 17:04 Anesthesia Postop Eval I: Fluid Summary Crystalloid volume administer 1,200 04/07/25 17:04 (ml) Colloids volume administered ( ml) Blood Product volume administered (ml) Total IV fluid infused 1,200 04/07/25 17:04 Anesthesia Postop Eval I: Summary Notes Anesthesia Complication No 04/07/25 17:04 Anesthesia Complication Comment: Post-operative progress note Anesthesia: Postop Eval II Evaluation Mental status: Awake Pain Level: 0 nausea: No Vomiting: No 04/07/25 1708 > Date _ Jamar Gonzalez MD Cosigner Signature: Date CC: ~ [facility]igned [facility] Medical Records Department [address] [place] [address] Pre-Anesthesia Evaluation 04/09/25 1122 MR#: [id number] Acct: [id number] Name: ALONDRA ARITA Rep #:[id number] : 1975 49 From: Alexey Meraz MD PCP: Care Physician,No Primary Status :ADM KATHLEEN Y Race: C Location: [place] [id number] -1 ASA Classification* ASA Classification ASA Classification: 2 and E Assessment & Plan Anesthesia* Anesthesia [...] risk assessments. Anesthesia Type Anesthesia Type: General Anesthesia Focused Assessment* Temperature: 98.8 F Pulse Rate: 88 Blood Pressure: 116/81 Respiratory Rate: 16 Pulse Ox: 94 Airway Assessment Mouth opens: >3 cm Mallampati Score: II Labs Anesthesia Preop lab: CBC WBC, (4.4-11.0) 6.5 K/mm3 Today, 06:25 RBC, (4.6-6.2) 4.99 M/mm3 Today, 06:25 Hgb, (13.0-16.5) 14.2 g/dL Today, 06:25 Hct, (40-54) 41.3 % Today, 06:25 Plt Count, (150-450) 267 K/mm3 Today, 06:25 CHEMISTRY Potassium, (3.3-5.1) 3.4 mmol/L Today, 06:25 Sodium, (133-145) 137 mmol/L Today, 06:25 Magnesium, (1.5-2.2) 1.8 mg/dL Today, 06:25 BUN, (4-19) 18 mg/dL Today, 06:25 Creatinine, (0.70-1.20) 0.94 mg/dL Today, 06:25 Glucose, (70-99) 89 mg/dL Today, 06:25 COAG PT, (11.7-14.9) 13.3 SECONDS 03/16/25, 09:54 Pre-Assessment Diagnosis/Proposed Procedure Planned Operative Procedure(s): Exploratory laparoscopy for SBO Anesthesia History Anesthesia History - crown blocker: Anesthesia History - crown blocker Hx Hospitalization Yes: 03/16/25 gallstones/ 03/29/25 09:18 ercp Any Problems With Anesthesia No 03/29/25 09:18 Cholinesterase deficiency No 03/29/25 09:18 You/Your Family Experience No 03/29/25 09:18 fever (hyperthermia) with Relationship Recent Exposure to Contagious No 04/04/25 12:47 Disease Does patient have nerve No 03/29/25 09:18 stimulator Patient instructed to have device shut off --Does patient have Pacemaker or ICD? When Was Last Pacemaker Check QUESTION #4 FULL TEXT: You/Your Family Experience fever (hyperthermia) with Anesthesia Last Oral Intake Last Oral intake: Last Oral Intake NPO since Meds taken in AM with sips of water? Meds patient instructed to take am of surgery PONV PONV - crown blocker: PONV - crown blocker Female HX of Motion Sickness HX of N/V After Surgery Non-Smoker Duration of Surgery greater than 60 minutes Number of Risk Factors PONV Score Height & Weight Height & Weight: Anesthesia: Height & Weight Height 5 ft 8 in 04/07/25 17:56 Weight: 101.151 kg 04/07/25 17:56 Body Mass Index (BMI) 33.9 04/07/25 17:56 Respiratory Assessment Respiratory Assessment - crown blocker: Respiratory Tract Infection Hx - crown blocker Hx Respiratory Tract Infection No 03/29/25 09:18 STOP Sleep Apnea STOP Sleep Apnea - crown blocker: STOP Sleep Apnea - crown blocker Hx Hypertension No 04/07/25 17:56 Hx Sleep Apnea No 04/07/25 17:56 CPAP BIPAP Do you snore loudly (louder Yes 04/07/25 17:56 than talking or can be heard Do you often feel tired/ No 04/07/25 17:56 fatigued/ sleepy during daytime? Has anyone observed you stop No 04/07/25 17:56 breathing during sleep? STOP Results Negative 04/07/25 17:56 QUESTION #5 FULL TEXT : Do you snore loudly (louder than talking or can be heard through closeddoors)? 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 Specify any problems Hx of Preganancy in last 3 Months Nurse Filling Out Transfusion & Questions: Date: Time: Patient unable to answer at Yes 04/07/25 17:56 this time (ie. confused, unrespo /Reproduction History /Reproductive History - crown blocker: /Reproductive Hx- crown blocker Hx Now Gestational Age (in weeks): EDC: Hx Hx Para Hx Section SAB No 03/29/25 09:18 Active Medications Active Medications: Current Medications Generic Name Dose Route Start Last Admin Trade Name Freq PRN Reason Stop Dose Admin Lactated Ringer's 1,000 mls @ 120 mls/hr 04/07/25 17:55 04/09/25 11:12 IV 0 mls/hr .Q8H20M DIA Infusion Pantoprazole Sodium 40 mg/ 100 mls @ 300 mls/hr 04/08/25 22:00 04/09/25 10:14 Sodium Chloride IV Infused Q12 DIA Infusion Lactated Ringer's 1,000 mls @ 15 mls/hr 04/09/25 11:15 IV .Q48H DIA Ketorolac Tromethamine 15 mg 04/07/25 17:55 04/08/25 20:39 Ketorolac 15 Mg/Ml Vial IV 15 mg Q6H PRN PRN Administration Pain Score 1-10 Morphine Sulfate 2 - 4 mg 04/07/25 17:55 04/08/25 01:52 Morphine 2 Mg/Ml Syringe IV 2 mg Q2H PRN PRN Administration Pain Score 4-10 Morphine Sulfate 2 - 4 mg 04/07/25 18:13 Morphine 4 Mg/Ml Syringe IV Q2H PRN PRN Pain Score 4-10 Ondansetron HCl 4 mg 04/07/25 17:55 04/08/25 01:49 Ondansetron 4 Mg/2 Ml Vial IV 4 mg Q8H PRN PRN Administration NAUSEA/VOMITING Oxycodone HCl 5 - 10 mg 04/07/25 17:55 Oxycodone 5 Mg Tablet PO Q4H PRN PRN Pain Score 4-10 Phenol/Menthol 5 spray 04/08/25 17:44 Phenol/Sodium Phenolate 180ml MUCOUS MEM Q2H PRN PRN SORE THROAT Sodium Chloride 10 - 40 ml 04/07/25 18:14 04/08/25 14:39 0.9% Saline Lock 10 Ml Syringe IV 10 ml UD PRN Administration SALINE FLUSH Throat Lozenges 1 lozenge 04/08/25 16:55 Benzocaine/Menthol 1 Lozenge MUCOUS MEM Q2H PRN PRN SORE THROAT PFSH Medical History Wears glasses Fatty liver Heartburn Gastric reflux Non-smoker Nausea Abdominal pain GERD (gastroesophageal reflux disease) Home Medications ?Medication ?Instructions ?Recorded ?Last Taken ?Type omeprazole 40 mg capsule,delayed 40 mg PO QDAY #30 cap s 03/23/25 04/03/25 Rx release oxycodone 5 mg capsule 5 mg PO Q6H PRN pain 3 days #10 04/04/25 Unknown Rx caps Allergy/AdvReac Type Severity Reaction Status Date / Time No Known Allergies Allergy Verified 04/07/25 13:36 Surgical History History of incisional hernia repair S/P laparoscopic cholecystectomy History of wisdom tooth extraction (~06/21/94) Hx of LASIK History of ERCP (03/16/25) Social History Smoking Status: Never smoker alcohol intake: never substance use type: does not use Review of Systems (Anesthesia) ROS Narrative System reviewed and no additional complaints, except as documented. 04/09/25 1123 > Date _ Alexey Meraz MD Cosigner Signature: Date CC: ~ [facility] Medical Records Department [address] [place] [address] Anesthesia Postop Eval I 04/09/25 1354 MR#: [id number] Acct: [id number] Name: ALONDRA ARITA Rep #:[id number] : 1975 49 From: Jaylyn Pelletier CRNA PCP: Care Physician,No Primary Status :ADM KATHLEEN Y Race: C Location: [place] [address] Anesthesia: Postop Eval I Current Vital Signs Temperature: 99 F Pulse Rate: 87 Blood Pressure: 137/80 Respiratory Rate: 16 Pulse Ox: 98 Oxygen Delivery Method: Room Air Assessment Airway patent: Yes Spontaneous unlabored respirations: Yes Mental status: Awake and Calm nausea: No Vomiting: No Anesthesia Complication: No Fluid Hydration Crystalloid volume administer (ml): 1,000 Total IV fluid infused: 1,000 Progress Note Anesthesia document: Postop Eval 1 completed: Yes 04/09/[address] FLAT SORTING MACHINE CLERK> Date _ Jaylyn Pelletier FLAT SORTING MACHINE CLERK Cosigner Signature: Date CC: ~ [facility]igned [facility] Medical Records Department [address] [place] [address] Anesthesia Postop Eval II 04/09/25 1443 MR#: [id number] Acct: [id number] Name: ALONDRA ARITA Rep #:[id number] : 1975 49 From: Alexey Meraz MD PCP: Care Physician,No Primary Status :ADM KATHLEEN Y Race: C Location: [place] [address] Anesthesia Postop Eval I Sum Postop Eval Completion status Anesthesia document: Postop Eval 1 completed: Yes Anesthesia Postop Eval I Summary Anesthesia Postop Eval I Summary: Anesthesia Postop Eval I: Assessment Summary Airway patent Yes 04/09/25 13:55 FLAT SORTING MACHINE [email or web address].JDEF Spontaneous unlabored Yes 04/09/25 13:55 FLAT SORTING MACHINE CLERK.JDEF respirations Mental status Awake,Calm 04/09/25 13:55 FLAT SORTING MACHINE CLERK.JDEF nausea No 04/09/25 13:55 FLAT SORTING MACHINE CLERK.JDEF Vomiting No 04/09/25 13:55 FLAT SORTING MACHINE CLERK.JDEF Anesthesia Postop Eval I: Fluid Summary Crystalloid volume administer 1,000 04/09/25 13:55 FLAT SORTING MACHINE CLERK.JDEF (ml) Colloids volume administered ( ml) Blood Product volume administered (ml) Total IV fluid infused 1,000 04/09/25 13:55 FLAT SORTING MACHINE CLERK.JDEF Anesthesia Postop Eval I: Summary Notes Anesthesia Complication No 04/09/25 13:55 FLAT SORTING MACHINE CLERK.JDEF Anesthesia Complication Comment: Post-operative progress note Anesthesia: Postop Eval II Evaluation Mental status: Awake Pain Level: 2 nausea: No Vomiting: No 04/09/25 1443 > Date _ Alexey Meraz MD Cosigner Signature: Date CC: ~ [facility]igned [facility] Author Jamar Gonzalez [facility] Note Date/Time April 07, 2025 4 :56pm [facility] Medical Records Department [address] [place] [address] Pre-Anesthesia Evaluation 04/07/25 1555 MR#: [id number] Acct: [id number] Name: ALONDRA ARITA Rep #:[id number] : 1975 49 From: Jamar Gonzalez MD PCP: Care Physician,No Primary Status :REG SDC Y Race: C Location: [place] [address] ASA Classification* ASA Classification ASA Classification: 2 and E Assessment & Plan Anesthesia* Anesthesia [...] risk assessments. Anesthesia Type Anesthesia Type: General Anesthesia Focused Assessment* Temperature: 98.9 F Pulse Rate: 88 Blood Pressure: 134/84 Respiratory Rate: 16 Pulse Ox: 98 Airway Assessment Mouth opens: >3 cm Mallampati Score: II Labs Anesthesia Preop lab: CBC WBC, (4.4-11.0) 12.5 K/mm3 H Today, 14:15 RBC, (4.6-6.2) 5.86 M/mm3 Today, 14:15 Hgb, (13.0-16.5) 16.3 g/dL Today, 14:15 Hct, (40-54) 47.1 % Today, 14:15 Plt Count, (150-450) 346 K/mm3 Today, 14:15 CHEMISTRY Potassium, (3.3-5.1) 3.6 mmol/L Today, 14:15 Sodium, (133-145) 137 mmol/L Today, 14:15 BUN, (4-19) 16 mg/dL Today, 14:15 Creatinine, (0.70-1.20) 0.93 mg/dL Today, 14:15 Glucose, (70-99) 119 mg/dL H Today, 14:15 COAG PT, (11.7-14.9) 13.3 SECONDS 03/16/25, 09:54 Pre-Assessment Diagnosis/Proposed Procedure Planned Operative Procedure(s): repair of iatrogenic supraumbilical hernia Anesthesia History Anesthesia History - crown blocker: Anesthesia History - crown blocker Hx Hospitalization Yes: 03/16/25 gallstones/ 03/29/25 09:18 ercp Any Problems With Anesthesia No 03/29/25 09:18 Cholinesterase deficiency No 03/29/25 09:18 You/Your Family Experience No 03/29/25 09:18 fever (hyperthermia) with Relationship Recent Exposure to Contagious No 04/04/25 12:47 Disease Does patient have nerve No 03/29/25 09:18 stimulator Patient instructed to have device shut off --Does patient have Pacemaker or ICD? When Was Last Pacemaker Check QUESTION #4 FULL TEXT: You/Your Family Experience fever (hyperthermia) with Anesthesia Last Oral Intake Last Oral intake: Last Oral Intake NPO since Meds taken in AM with sips of water? Meds patient instructed to take am of surgery PONV PONV - crown blocker: PONV - crown blocker Female HX of Motion Sickness HX of N/V After Surgery Non-Smoker Duration of Surgery greater than 60 minutes Number of Risk Factors PONV Score Height & Weight Height & Weight: Anesthesia: Height & Weight Height 5 ft 7 in 04/07/25 13:36 Weight: 101.151 kg 04/07/25 13:36 Body Mass Index (BMI) 34.9 04/07/25 13:36 Respiratory Assessment Respiratory Assessment - crown blocker: Respiratory Tract Infection Hx - crown blocker Hx Respiratory Tract Infection No 03/29/25 09:18 STOP Sleep Apnea STOP Sleep Apnea - crown blocker: STOP Sleep Apnea - crown blocker Hx Hypertension No 03/29/25 09:18 Hx Sleep Apnea No 04/04/25 16:45 CPAP BIPAP Do you snore loudly (louder than talking or can be heard Do you often feel tired/ fatigued/ sleepy during daytime? Has anyone observed you stop breathing during sleep? STOP Results QUESTION #5 FULL TEXT : Do you snore loudly (louder than talking or can be heard through closed doors)? 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 Specify any problems Hx of Preganancy in last 3 Months Nurse Filling Out Transfusion & Questions: Date: Time: Patient unable to answer at this time (ie. confused, unrespo /Reproduction History /Reproductive History - crown blocker: /Reproductive Hx- crown blocker Hx Now Gestational Age (in weeks): EDC: Hx Hx Para Hx Section SAB No 03/29/25 09:18 PFSH Medical History (Updated 04/07/25 @ 15:[address] Rich Ramirez MD) Wears glasses Fatty liver Heartburn Gastric reflux Non-smoker Nausea Abdominal pain GERD (gastroesophageal reflux disease) Home Medications ?Medication ?Instructions ?Recorded ?Last Taken ?Type omeprazole 40 mg capsule,delayed 40 mg PO QDAY #30 cap s 03/23/25 04/03/25 Rx release oxycodone 5 mg capsule 5 mg PO Q6H PRN pain 3 days #10 04/04/25 Unknown Rx caps Allergy/AdvReac Type Severity Reaction Status Date / Time No Known Allergies Allergy Verified 04/07/25 13:36 Surgical History S/P laparoscopic cholecystectomy History of wisdom tooth extraction (~06/21/94) Hx of LASIK History of ERCP (03/16/25) Social History Smoking Status: Never smoker alcohol intake: never substance use type: does not use Review of Systems (Anesthesia) ROS Narrative System reviewed and no additional complaints, except as documented. 04/07/25 1556 <Electronically signed by Jamar Gonzalez MD> Date _ Jamar Gonzalez MD Cosigner Signature: Date CC: ~ Signed [facility] Work Phone: Consult note [facility] Note Date/Time April 07, 2025 6 :08pm [facility] Medical Records Department [address] [place] [address] Anesthesia Postop Eval I 04/07/251703 MR#: [id number] Acct: [id number] Name: ALONDRA ARITA Rep #:[id number] : 1975 49 From: Jamar Gonzalez MD PCP: Care Physician,No Primary Status :REG [facility] [place] Race: C Location: [place] [address] Anesthesia: Postop Eval I Current Vital Signs Temperature: 97 F Pulse Rate: 81 Blood Pressure: 126/68 Respiratory Rate: 14 Pulse Ox: 94 Assessment Airway patent: Yes Spontaneous unlabored respirations: Yes nausea: No Vomiting: No Anesthesia Complication: No Fluid Hydration Crystalloid volume administer (ml): 1,200 Total IV fluid infused: 1,200 Progress Note Anesthesia document: Postop Eval 1 completed: Yes 04/07/251707 <Electronically signed by Jamar Gonzalez MD> Date _ Jamar Gonzalez MD Cosigner Signature: Date CC: ~ Signed [facility] Work Phone: Consult note Author Jamar [facility] Note Date/Time April 15, 2025 1 :08pm [facility] Medical Records Department [address] [place] [address] Anesthesia Postop Eval II 04/07/251707 MR#: [id number] Acct: [id number] Name: ALONDRA ARITA Rep #:[id number] : 1975 49 From: Jamar Gonzalez MD PCP: Care Physician,No Primary Status :REG SDC Y Race: C Location: [facility] Anesthesia Postop Eval I Sum Postop Eval Completion status Anesthesia document: Postop Eval 1 completed: Yes Anesthesia Postop Eval I Summary Anesthesia Postop Eval I Summary: Anesthesia Postop Eval I: Assessment Summary Airway patent Yes 04/07/25 17:04 Spontaneous unlabored Yes 04/07/25 17:04 respirations Mental status nausea No 04/07/25 17:04 Vomiting No 04/07/25 17:04 Anesthesia Postop Eval I: Fluid Summary Crystalloid volume administer 1,200 04/07/25 17:04 (ml) Colloids volume administered ( ml) Blood Product volume administered (ml) Total IV fluid infused 1,200 04/07/25 17:04 Anesthesia Postop Eval I: Summary Notes Anesthesia Complication No 04/07/25 17:04 Anesthesia Complication Comment: Post-operative progress note Anesthesia: Postop Eval II Evaluation Mental status: Awake Pain Level: 0 nausea: No Vomiting: No 04/07/251707 <Electronically signed by Jamar Gonzalez MD> Date _ Jamar Gonzalez MD Cosigner Signature: Date CC: ~ Signed [facility] Work Phone: Consult note Author Alexey Meraz [facility] Note Date/Time April 09, 2025 1 2:23pm [facility] Medical Records Department [address] [place] [address] Pre-Anesthesia Evaluation 04/09/25 1122 MR#: [id number] Acct: [id number] Name: ALONDRA ARITA Rep #:[id number] : 1975 49 From: Alexey Meraz MD PCP: Care Physician,No Primary Status :ADM KATHLEEN Y Race: C Location: [place] [address] ASA Classification* ASA Classification ASA Classification: 2 and E Assessment & Plan Anesthesia* Anesthesia [...] risk assessments. Anesthesia Type Anesthesia Type: General Anesthesia Focused Assessment* Temperature: 98.8 F Pulse Rate: 88 Blood Pressure: 116/81 Respiratory Rate: 16 Pulse Ox: 94 Airway Assessment Mouth opens: >3 cm Mallampati Score: II Labs Anesthesia Preop lab: CBC WBC, (4.4-11.0) 6.5 K/mm3 Today, 06:25 RBC, (4.6-6.2) 4.99 M/mm3 Today, 06:25 Hgb, (13.0-16.5) 14.2 g/dL Today, 06:25 Hct, (40-54) 41.3 % Today, 06:25 Plt Count, (150-450) 267 K/mm3 Today, 06:25 CHEMISTRY Potassium, (3.3-5.1) 3.4 mmol/L Today, 06:25 Sodium, (133-145) 137 mmol/L Today, 06:25 Magnesium, (1.5-2.2) 1.8 mg/dL Today, 06:25 BUN, (4-19) 18 mg/dL Today, 06:25 Creatinine, (0.70-1.20) 0.94 mg/dL Today, 06:25 Glucose, (70-99) 89 mg/dL Today, 06:25 COAG PT, (11.7-14.9) 13.3 SECONDS 03/16/25, 09:54 Pre-Assessment Diagnosis/Proposed Procedure Planned Operative Procedure(s): Exploratory laparoscopy for SBO Anesthesia History Anesthesia History - crown blocker: Anesthesia History - crown blocker Hx Hospitalization Yes: 03/16/25 gallstones/ 03/29/25 09:18 ercp Any Problems With Anesthesia No 03/29/25 09:18 Cholinesterase deficiency No 03/29/25 09:18 You/Your Family Experience No 03/29/25 09:18 fever (hyperthermia) with Relationship Recent Exposure to Contagious No 04/04/25 12:47 Disease Does patient have nerve No 03/29/25 09:18 stimulator Patient instructed to have device shut off --Does patient have Pacemaker or ICD? When Was Last Pacemaker Check QUESTION #4 FULL TEXT: You/Your Family Experience fever (hyperthermia) with Anesthesia Last Oral Intake Last Oral intake: Last Oral Intake NPO since Meds taken in AM with sips of water? Meds patient instructed to take am of surgery PONV PONV - crown blocker: PONV - crown blocker Female HX of Motion Sickness HX of N/V After Surgery Non-Smoker Duration of Surgery greater than 60 minutes Number of Risk Factors PONV Score Height & Weight Height & Weight: Anesthesia: Height & Weight Height 5 ft 8 in 04/07/25 17:56 Weight: 101.151 kg 04/07/25 17:56 Body Mass Index (BMI) 33.9 04/07/25 17:56 Respiratory Assessment Respiratory Assessment - crown blocker: Respiratory Tract Infection Hx - crown blocker Hx Respiratory Tract Infection No 03/29/25 09:18 STOP Sleep Apnea STOP Sleep Apnea - crown blocker: STOP Sleep Apnea - crown blocker Hx Hypertension No 04/07/25 17:56 Hx Sleep Apnea No 04/07/25 17:56 CPAP BIPAP Do you snore loudly (louder Yes 04/07/25 17:56 than talking or can be heard Do you often feel tired/ No 04/07/25 17:56 fatigued/ sleepy during daytime? Has anyone observed you stop No 04/07/25 17:56 breathing during sleep? STOP Results Negative 04/07/25 17:56 QUESTION #5 FULL TEXT : Do you snore loudly (louder than talking or can be heard through closed doors)? 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 Specify any problems Hx of Preganancy in last 3 Months Nurse Filling Out Transfusion & Questions: Date: Time: Patient unable to answer at Yes 04/07/25 17:56 this time (ie. confused, unrespo /Reproduction History /Reproductive History - crown blocker: /Reproductive Hx- crown blocker Hx Now Gestational Age (in weeks): EDC: Hx Hx Para Hx Section SAB No 03/29/25 09:18 Active Medications Active Medications: Current Medications Generic Name Dose Route Start Last Admin Trade Name Freq PRN Reason Stop Dose Admin Lactated Ringer's 1,000 mls @ 120 mls/hr 04/07/25 17:55 04/09/25 11:12 IV 0 mls/hr .Q8H20M DIA Infusion Pantoprazole Sodium 40 mg/ 100 mls @ 300 mls/hr 04/08/25 22:00 04/09/25 10:14 Sodium Chloride IV Infused Q12 DIA Infusion Lactated Ringer's 1,000 mls @ 15 mls/hr 04/09/25 11:15 IV .Q48H DIA Ketorolac Tromethamine 15 mg 04/07/25 17:55 04/08/25 20:39 Ketorolac 15 Mg/Ml Vial IV 15 mg Q6H PRN PRN Administration Pain Score 1-10 Morphine Sulfate 2 - 4 mg 04/07/25 17:55 04/08/25 01:52 Morphine 2 Mg/Ml Syringe IV 2 mg Q2H PRN PRN Administration Pain Score 4-10 Morphine Sulfate 2 - 4 mg 04/07/25 18:13 Morphine 4 Mg/Ml Syringe IV Q2H PRN PRN Pain Score 4-10 Ondansetron HCl 4 mg 04/07/25 17:55 04/08/25 01:49 Ondansetron 4 Mg/2 Ml Vial IV 4 mg Q8H PRN PRN Administration NAUSEA/VOMITING Oxycodone HCl 5 - 10 mg 04/07/25 17:55 Oxycodone 5 Mg Tablet PO Q4H PRN PRN Pain Score 4-10 Phenol/Menthol 5 spray 04/08/25 17:44 Phenol/Sodium Phenolate 180ml MUCOUS MEM Q2H PRN PRN SORE THROAT Sodium Chloride 10 - 40 ml 04/07/25 18:14 04/08/25 14:39 0.9% Saline Lock 10 Ml Syringe IV 10 ml UD PRN Administration SALINE FLUSH Throat Lozenges 1 lozenge 04/08/25 16:55 Benzocaine/Menthol 1 Lozenge MUCOUS MEM Q2H PRN PRN SORE THROAT PFSH Medical History Wears glasses Fatty liver Heartburn Gastric reflux Non-smoker Nausea Abdominal pain GERD (gastroesophageal reflux disease) Home Medications ?Medication ?Instructions ?Recorded ?Last Taken ?Type omeprazole 40 mg capsule,delayed 40 mg PO QDAY #30 cap s 03/23/25 04/03/25 Rx release oxycodone 5 mg capsule 5 mg PO Q6H PRN pain 3 days #10 04/04/25 Unknown Rx caps Allergy/AdvReac Type Severity Reaction Status Date / Time No Known Allergies Allergy Verified 04/07/25 13:36 Surgical History History of incisional hernia repair S/P laparoscopic cholecystectomy History of wisdom tooth extraction (~06/21/94) Hx of LASIK History of ERCP (03/16/25) Social History Smoking Status: Never smoker alcohol intake: never substance use type: does not use Review of Systems (Anesthesia) ROS Narrative System reviewed and no additional complaints, except as documented. 04/09/25 1123 <Electronically signed by Alexey Meraz MD > Date _ Alexey Galaviz Signature: Date CC: ~ Signed [facility] Work Phone: Consult note Author Jaylyn Pelletier [facility] Note Date/Time April 09, 2025 2 :55pm [facility] Medical Records Department [address] [place] [address] Anesthesia Postop Eval I 04/09/25 1354 MR#: [id number] Acct: [id number] Name: ALONDRA ARITA Rep #:[id number] : 1975 49 From: Jaylyn Pelletier CRNA PCP: Care Physician,No Primary Status :ADM KATHLEEN Y Race: C Location: [place] [address] Anesthesia: Postop Eval I Current Vital Signs Temperature: 99 F Pulse Rate: 87 Blood Pressure: 137/80 Respiratory Rate: 16 Pulse Ox: 98 Oxygen Delivery Method: Room Air Assessment Airway patent: Yes Spontaneous unlabored respirations: Yes Mental status: Awake and Calm nausea: No Vomiting: No Anesthesia Complication: No Fluid Hydration Crystalloid volume administer (ml): 1,000 Total IV fluid infused: 1,000 Progress Note Anesthesia document: Postop Eval 1 completed: Yes 04/09/25 135 <Electronically signed by Jaylyn don FLAT SORTING MACHINE CLERK> Date _ Jaylyn Galaviz Signature: Date CC: ~ Signed [facility] Work Phone: Consult note Author Alexey Meraz [facility] Note Date/Time April 15, 2025 1 :08pm [facility] Medical Records Department [address] [facility] [place] [address] Anesthesia Postop Eval II 04/09/25 1443 MR#: [id number] Acct: [id number] Name: ALONDRA ARITA Rep #:[id number] : 1975 49 From: Alexey Meraz MD PCP: Care Physician,No Primary Status :ADM KATHLEEN Y Race: C Location: [place] [address]1 Anesthesia Postop Eval I Sum Postop Eval Completion status Anesthesia document: Postop Eval 1 completed: Yes Anesthesia Postop Eval I Summary Anesthesia Postop Eval I Summary: Anesthesia Postop Eval I: Assessment Summary Airway patent Yes 04/09/25 13:55 FLAT SORTING MACHINE [email or web address].JDEF Spontaneous unlabored Yes 04/09/25 13:55 FLAT SORTING MACHINE CLERK.JDEF respirations Mental status Awake,Calm 04/09/25 13:55 FLAT SORTING MACHINE CLERK.JDEF nausea No 04/09/25 13:55 FLAT SORTING MACHINE CLERK.JDEF Vomiting No 04/09/25 13:55 FLAT SORTING MACHINE CLERK.JDEF Anesthesia Postop Eval I: Fluid Summary Crystalloid volume administer 1,000 04/09/25 13:55 FLAT SORTING MACHINE CLERK.JDEF (ml) Colloids volume administered ( ml) Blood Product volume administered (ml) Total IV fluid infused 1,000 04/09/25 13:55 FLAT SORTING MACHINE CLERK.JDEF Anesthesia Postop Eval I: Summary Notes Anesthesia Complication No 04/09/25 13:55 FLAT SORTING MACHINE CLERK.JDEF Anesthesia Complication Comment: Post-operative progress note Anesthesia: Postop Eval II Evaluation Mental status: Awake Pain Level: 2 nausea: No Vomiting: No 04/09/25 1443 <Electronically signed by Alexey Meraz MD > Date _ [facility] Signature: Date CC: ~ Signed [facility] Work Phone: Discharge summary Author Lucretia [facility] Note Date/Time March 17, 2025 3:21pm [facility] Medical Records Department [address] [place] [address] Emergency Department Summary 03/16/25 MR#: [id number] Acct: [id number] Name: ALONDRA ARITA Rep #:[id number] : 1975 49 From: Lucretia Albert PCP: Care Physician,No Primary Status :ADM IN Location: [facility] QC027-5 HPI HPI - GI History of Present [...] other complaints or concerns at this time [facility] Medical History GERD (gastroesophageal reflux disease) Medical [...] 75.9 H Lymph % (Auto) 17.5 L Coamo % (Auto) 4.8 Eos % (Auto) 1.0 [...] Sl. Cloudy Urine pH 6.0 Ur Specific Bentley 1.010 Urine Protein Negative Urine Glucose (UA) [...] without an obstructing lesion seen. Reading Location: [id number] Abdomen/Pelvis CT 03/16/25 12:05 IMPRESSION: Fatty liver. Well-defined lesion right lobe of liver favor focal nodular hyperplasia. Follow-up MR of the abdomen with Eovist in 4-6 months to confirm stability possibly helpful. Reading Location: [facility] Rhythm Strip Rhythm Strip: Sinus Rhythm Rate: 76 Ectopy: None EKG Initial EKG: Attestation: I personally reviewed and interpreted this EKG as follows: Interpretation: Sinus Rhythm Comments: Normal sinus rhythm rate of 76 bpm with sinus arrhythmia Normal axis Normal intervals Normal ST segments Management Discussion w/another healthcare provider: Hospitalist and [employer] Discharge Plan Dx/Rx/DC Orders Clinical Impression: Cholelithiasis with acute on chronic cholecystitis Disposition Disposition: Acute Care Hospital [facility] Discharge Date/Time: 03/16/25 12:44 What to do if you have Problems For any increased pain, shortness of breath, bleeding, nausea or vomiting, chestpain, or any unexpected problems, contact your Primary Care Provider. Call [facility] ([phone]) or report to the closest Emergency Room. Call 911 if necessary. 03/17/25 1521 <Electronically signed by Lucretia Bear DO> Cosigner Signature (if applicable): CC: No Primary Care Physician ~ Signed [facility] Work Phone: Discharge summary Author Jose Guadalupe Puckett [facility] Note Date/Time March 18, 2025 9:40am [facility] Medical Records Department [address] [place] [address] Instructions for Home/Discharge Instructions 03/18/2535 MR#: [id number] Acct: [id number] Name: ALONDRA ARITA Rep #:[id number] : 1975 49 From: Jose Guadalupe White PCP: Roman PhysicianJudy Primary Status :ADM IN Discharge Instructions DC [...] Alex Instructions Additional Instructions / Restrictions: Advised xldw-cmy-hjsfxyz Tylenol 500 mg to 1000 mg Q6 hourly as needed for fevermore than 102 Fahrenheit and moderate to severe pain respectively. Nmnt-fin-krckzkk, probiotic, lactobacillus/acidophilus 1 tablet twice daily for [...] Guadalupe Puckett MD>Jose Guadalupe Puckett MD CC: ELECTROMECHANICAL TECHNOLOGISTMaliha Green; PORSCHE Pavon; Dr. Jose Guadalupe Puckett MD; MERE Mcpherson; No Primary Care Physician; Yevgeniy Sarah DO ~ Signed [facility] Work Phone: Discharge summary Author Jose Guadalupe Puckett [facility] Note Date/Time March 18, 2025 9:46am [facility] Medical Records Department [address] [place] [address] Discharge Summary 03/18/25 0940 MR#: [id number] Acct: [id number] Name: ALONDRA ARITA Rep #:[id number] : 1975 49 From: Jose Guadalupe White PCP: Care Physician,No Primary Status :ADM IN Location: [place] [address] Providers Date of Admission: 03/16/25 Date of Discharge: 03/18/25 Primary Care Physician: No Primary Care Phys Consultations 03/16/25 13:32 Consult: Gastroenterology Routine Consulting Provider: [facility] Reason for Consult: choledocholithiasis EMERGENT Consult: [...] shock if needed Total time spent in ejou-js-vhfh encounter in discussion of advanced directive 17 [...] (Auto) 75.9 H, Lymph % (Auto) 17.5 L,Coamo % (Auto) 4.8, Eos % (Auto) 1.0, [...] Sl. Cloudy, Urine pH 6.0, Ur Specific Bentley 1.010, Urine Protein Negative, Urine Glucose (UA) [...] (Auto) 83.5 H, Lymph % (Auto) 12.9 L,Coamo % (Auto) 3.1, Eos % (Auto) 0.0, [...] to confirm stability possibly helpful. Reading Location: [facility] Medications at Discharge Home Medications amoxicillin 875 [...] an obstructing lesion seen. Reading Location: [facility] Abdomen/Pelvis CT 03/16/25 12:05 IMPRESSION: Fatty liver. Well-defined lesion right lobe of liver favor focal nodular hyperplasia. Follow-up MR of the abdomen with Eovist in 4-6 months to confirm stability possibly helpful. Reading Location: [facility] C-Arm Fluoroscopy 03/16/25 15:55 IMPRESSION: Intraoperative fluoroscopy status post ERCP, as above. Reading Location: [facility] ERCP X-Ray 03/16/25 15:55 IMPRESSION: Intraoperative fluoroscopy status post ERCP, as above. Reading Location: [facility] Physical Exam Narrative Seen and [...] Alex Instructions Additional Instructions / Restrictions: Advised bkub-een-svyyhne Tylenol 500 mg to 1000 mg Q6 hourly as needed for fevermore than 102 Fahrenheit and moderate to severe pain respectively. Bwzn-rij-rswfuky, probiotic, lactobacillus/acidophilus 1 tablet twice daily for [...] Self Care Charges/Coding Visit Charges Inpatient E&M: 08891 Disch Hosp >30min 03/18/25 0946 <Electronically signed by Jose Guadalupe Puckett MD> Cosigner Signature (if applicable): CC: Dr. Jose Guadalupe Puckett MD; Dr. Abbie Philip MD; No Primary Care Physician;Yevgeniy Sarah DO~ Signed [facility] Work Phone: Discharge summary [facility] Medical Records Department [address] [place] [address] Discharge Summary 04/15/25 1150 MR#: [id number] Acct: [id number] Name: ALONDRA ARITA Rep #:[id number] : 1975 49 From: Mateo Daniel MD PCP: Care Physician,No Primary Status :ADM IN Location: [place] [address] Providers Date of Admission: 04/09/25 Date of Discharge: 04/15/25 Primary Care Physician: No Primary Care Phys Reason For Visit: INGUINAL HERNIA REPAIR Diagnosis Discharge Diagnosis (1) History of incisional hernia repair: Status: Acute Code(s): Z98.890 - Other specified postprocedural states; Z87.19 - Personal history of other diseases of thedigestive system (2) Intractable vomiting: Status: Acute Code(s): R11.10 - Vomiting, unspecified (3) SBO (small bowel obstruction): Status: Resolved Code(s): K56.609 - Unspecified intestinal obstruction, unspecified as to partial versus complete obstruction (4) Incisional hernia with bowel obstruction: Status: Resolved Code(s): K43.0 - Incisional hernia with obstruction, without gangrene (5) S/P laparoscopic cholecystectomy: Status: Acute Code(s): Z90.49 - Acquired absence of other specified parts of digestive tract Plan Patient's status post robot-assisted cholecystectomy followed by incisional hernia repair with meshplacement followed by diagnostic laparoscopy with adhesiolysis for small bowel obstruction. His postoperative ileus seems to be steadily improving. He admits to flatus andbowel movements Patient has been up and ambulating. Patient tolerated diet advancement without incident Will plan discharge for today. Patient is to follow-up in our office in about 1- 2 weeks Medications at Discharge Home Medications omeprazole 40 mg capsule,delayed release 40 mg PO QDAY #30 caps 03/23/25 oxycodone 5 mg capsule 5 mg PO Q6H PRN pain 3 days #10 caps 04/04/25 Hospital Course Operations - (Diagnostic laparoscopy) Summary of Care Provided Minutes Spent on Discharge: 15 Hospital Course: Patient is a 49-year-old male who recently underwent a robotic cholecystectomy with Dr. Philip. Patient had quite a bit of vomiting after the surgery and subsequently developed a hernia. This hernia was then subsequently repaired. Following the hernia he developed a small bowel obstruction. He then underwent a diagnostic laparoscopy and a loop of bowel was found adherent to the undersurface of the mesh. This was released. Patient had an ileus postoperatively. Eventually he was able to regain bowel function and diet was gradually advanced. Currently patient is tolerating diet well. He deniesany nausea or vomiting. No abdominal pain or distention. Patient is requesting discharge home. Thisis reasonable as he is doing well Physical Exam Narrative He is alert and oriented x 3. He is in no acute distress. Abdomen is soft, nontender and nondistended. Incisions are clean dry and intact Weight / BMI Weight Weight: 223 lb 1.725 oz Body Mass Index (BMI) 33.9 ABG / Lab / Microbiology Data 04/13/25 09:00 04/13/25 09:00 D/C Instructions Discharge Activity: Return to Normal Activity Lifting Restrictions: No lifting pushing or pulling more than 20 pounds for about 6 weeks Call your doctor if your incision/area has: Continuous Slow Oozing, Sudden Increased Bleeding, Increased Pain/ Swelling, Increased Redness, Foul Smelling Discharge and Swelling at the incision site Call your doctor if you observe: Fever of 101 or Higher and Inability to have a bowel movement Cleanse incision/area with: Soap & Water DC O2, CPAP, BIPAP Needs Home O2 Discharge instructions: No DC home with Oxygen: No Please Follow Up With: Abbie Philip MD When: 1 to 2 weeks. Please call office to schedule appointment Meaningful Use Info Meaningful Use Meaningful Use Diagnoses (Choose all that apply): None applicable Discharge Plan Admission Admit Date/Time: 04/09/25 14:32 Primary Reason for Your Visit: Small bowel obstruction Attending Provider: Abbie Philip Primary Care Provider: Care Physician,Judy Primary Discharge Orders/Prescriptions Prescriptions: Continued omeprazole 40 mg capsule,delayed release(DR/EC) 40 mg PO QDAY Qty: 30 3RF Rx Instructions: swallow whole; do not crush, chew, dissolve, cut, break oxycodone 5 mg capsule 5 mg PO Q6H PRN (Reason: pain) 3 Days Qty: 10 0RF Referrals / Follow Up: Care Physician,No Primary [Primary Care Provider, Medical] Disposition Disposition (needs filled in before D/C Order can be placed): Home, Self Care 04/15/25 1208 Cosigner Signature (if applicable): CC: Dr. Mateo Daniel MD; No Primary Care Physician~ [facility] Note Date/Time April 15, 2025 1 :08pm [facility] Medical Records Department [address] [place] [address] Discharge Summary 04/15/25 1150 MR#: [id number] Acct: [id number] Name: ALONDRA ARITA Rep #:[id number] : 1975 49 From: Mateo Daniel MD PCP: Care Physician,No Primary Status :ADM [facility] Prov[facility] Date of Admission: 04/09/25 Date of Discharge: 04/15/25 Primary Care Physician: No Primary Care Phys Reason For Visit: INGUINAL HERNIA REPAIR Diagnosis Discharge Diagnosis (1) History of incisional hernia repair: Status: Acute Code(s): Z98.890 - Other specified postprocedural states; Z87.19 - Personal history of other diseases of the digestive system (2) Intractable vomiting: Status: Acute Code(s): R11.10 - Vomiting, unspecified (3) SBO (small bowel obstruction): Status: Resolved Code(s): K56.609 - Unspecified intestinal obstruction, unspecified as to partial versus complete obstruction (4) Incisional hernia with bowel obstruction: Status: Resolved Code(s): K43.0 - Incisional hernia with obstruction, without gangrene (5) S/P laparoscopic cholecystectomy: Status: Acute Code(s): Z90.49 - Acquired absence of other specified parts of digestive tract Plan Patient's status post robot-assisted cholecystectomy followed by incisional hernia repair with mesh placement followed by diagnostic laparoscopy with adhesiolysis for small bowel obstruction. His postoperative ileus seems to be steadily improving. He admits to flatus andbowel movements Patient has been up and ambulating. Patient tolerated diet advancement without incident Will plan discharge for today. Patient is to follow-up in our office in about 1- 2 weeks Medications at Discharge Home Medications omeprazole 40 mg capsule,delayed release 40 mg PO QDAY #30 caps 03/23/25 oxycodone 5 mg capsule 5 mg PO Q6H PRN pain 3 days #10 caps 04/04/25 Hospital Course Operations - (Diagnostic laparoscopy) Summary of Care Provided Minutes Spent on Discharge: 15 Hospital Course: Patient is a 49-year-old male who recently underwent a robotic cholecystectomy with Dr. Philip. Patient had quite a bit of vomiting after the surgery and subsequently developed a hernia. This hernia was then subsequently repaired. Following the hernia he developed a small bowel obstruction. He then underwent a diagnostic laparoscopy and a loop of bowel was found adherent to the undersurface of the mesh. This was released. Patient had an ileus postoperatively. Eventually he was able to regain bowel function and diet was gradually advanced. Currently patient is tolerating diet well. He denies any nausea or vomiting. No abdominal pain or distention. Patient is requesting discharge home. This is reasonable as he is doing well Physical Exam Narrative He is alert and oriented x 3. He is in no acute distress. Abdomen is soft, nontender and nondistended. Incisions are clean dry and intact Weight / BMI Weight Weight: 223 lb 1.725 oz Body Mass Index (BMI) 33.9 ABG / Lab / Microbiology Data 04/13/25 09:00 04/13/25 09:00 D/C Instructions Discharge Activity: Return to Normal Activity Lifting Restrictions: No lifting pushing or pulling more than 20 pounds for about 6 weeks Call your doctor if your incision/area has: Continuous Slow Oozing, Sudden Increased Bleeding, Increased Pain/ Swelling, Increased Redness, Foul Smelling Discharge and Swelling at the incision site Call your doctor if you observe: Fever of 101 or Higher and Inability to have a bowel movement Cleanse incision/area with: Soap & Water DC O2, CPAP, BIPAP Needs Home O2 Discharge instructions: No DC home with Oxygen: No Please Follow Up With: Abbie Philip MD When: 1 to 2 weeks. Please call office to schedule appointment Meaningful Use Info Meaningful Use Meaningful Use Diagnoses (Choose all that apply): None applicable Discharge Plan Admission Admit Date/Time: 04/09/25 14:32 Primary Reason for Your Visit: Small bowel obstruction Attending Provider: Abbie Philip Primary Care Provider: Care Physician,No Primary Discharge Orders/Prescriptions Prescriptions: Continued omeprazole 40 mg capsule,delayed release(DR/EC) 40 mg PO QDAY Qty: 30 3RF Rx Instructions: swallow whole; do not crush, chew, dissolve, cut, break oxycodone 5 mg capsule 5 mg PO Q6H PRN (Reason: pain) 3 Days Qty: 10 0RF Referrals / Follow Up: Care Physician,No Primary [Primary Care Provider, Medical] Disposition Disposition (needs filled in before D/C Order can be placed): Home, Self Care 04/15/25 1208 <Electronically signed by Mateo Daniel MD> Cosigner Signature (if applicable): CC: Dr. Mateo Daniel MD; No Primary Care Physician~ Signed [facility] Work Phone: Evaluation note* Diagnosis Onset Date Resolution Status Admit Date Cholelithiasis with acute on chronic cholecystitis acute March 16, 2025 12:53pm [facility] Work Phone: History and physical note Author Jose Guadalupe Puckett [facility] Note Date/Time March 16, 2025 2:14pm [facility] Medical Records Department [address] [place] [address] H&P Exam - Hospitalist 03/16/25 1334 MR#: [id number] Acct: [id number] Name: ALONDRA ARITA Rep #:[id number] : 1975 49 From: Jose Guadalupe White PCP: Care Physician,No Primary Status :ADM IN Location: [facility] [id number] HPI - General General Date of Admission: [...] dilatation, liver lesion, described in assessment plan. [facility] Medical History GERD (gastroesophageal reflux disease) Medical [...] (Auto) 75.9 H, Lymph % (Auto) 17.5 L,Coamo % (Auto) 4.8, Eos % (Auto) 1.0, [...] Sl. Cloudy, Urine pH 6.0, Ur Specific Bentley 1.010, Urine Protein Negative, Urine Glucose (UA) [...] an obstructing lesion seen. Reading Location: [facility] Assessment & Plan Assessment/Plan (1) Cholelithiasis with acute on chronic cholecystitis: PLAN: Plan 49-year-old gentleman came to ED with right upper and epigastric abdominal pain since 1:30 AM today with nausea. 1. Acute on chronic GB colic with cholelithiasis with suspicion of choledocholithiasis: Patient is being admitted to [facility] floor. RUQ sonogram shows cholelithiasis without signs [...] shock if needed Total time spent in coxj-ru-jhdc encounter in discussion of advanced directive 17 minutes. Laboratory Results 03/16/25 09:54: WBC 9.0, RBC 5.93, Hgb 17.0 H, Hct 48.0, MCV 80.9, MCH 28.7, MCHC 35.4, RDW Std Deviation 37.0, RDW Coeff of Ghulam 12.7, Plt Count 237, MPV 10.6, Immature Gran % (Auto) 0.400, Neut % (Auto) 75.9 H, Lymph % (Auto) 17.5 L,Coamo % (Auto) 4.8, Eos % (Auto) 1.0, [...] Sl. Cloudy, Urine pH 6.0, Ur Specific Bentley 1.010, Urine Protein Negative, Urine Glucose (UA) [...] to confirm stability possibly helpful. Reading Location: [facility] Charges/Coding Visit Charges Inpatient E&M: 34465 Init Hosp L3 Procedures Hospitalists Procedures: 92107 Advncd Care Plan 30 Min 03/16/25 1414 <Electronically signed by Jose Guadalupe Puckett MD> Cosigner Signature (if applicable): CC: Dr. Jose Guadalupe Puckett MD; Dr. Abbie Philip MD; No Primary Care Physician;Yevgeniy Friend, DO~ Signed [facility] Work Phone: History and physical note Author Abbie [facility] Note Date/Time April 07, 2025 4 :41pm [facility] Medical Records Department [address] [place] [address] H&P Exam - Surgical 04/07/25 1537 MR#: [id number] Acct: [id number] Name: ALONDRA ARITA Rep #:[id number] : 1975 49 From: Abbie Philip MD PCP: Care Physician,No [place] [place] [address] HPI - General General Date of Service: 04/07/25 HPI Narrative ALONDRA ARITA, is a 49 M who presents due to nausea and vomiting status post robotic cholecystectomy on 04/04. Patient has had vomiting daily since the surgery and states that he feels better once he throws up but it is not really able to take any food even liquids cause him discomfort. Patient's white blood count is 12.5 with slight left shift. Patient's LFTs are normal. Patient CT shows an incisional hernia causing a bowel obstruction. [facility] Medical History (Updated 04/07/25 @ 15:[address] Abbie Philip MD) Wears glasses Fatty liver Heartburn Gastric reflux Non-smoker Nausea Abdominal pain GERD (gastroesophageal reflux disease) Home Medications ?Medication ?Instructions ?Recorded ?Last Taken ?Type omeprazole 40 mg capsule,delayed 40 mg PO QDAY #30 cap s 03/23/25 04/03/25 Rx release oxycodone 5 mg capsule 5 mg PO Q6H PRN pain 3 days #10 04/04/25 Unknown Rx caps Allergy/AdvReac Type Severity Reaction Status Date / Time No Known Allergies Allergy Verified 04/07/25 13:36 Surgical History S/P laparoscopic cholecystectomy History of wisdom tooth extraction (~06/21/94) Hx of LASIK History of ERCP (03/16/25) Social History Smoking Status: Never smoker alcohol intake: never substance use type: does not use Vital Signs Vital Signs Vital Signs: 04/07/25 13:36 04/07/25 13:38 04/07/25 13:51 Temperature 98.9 F 98.9 F Temperature Source Oral Oral Pulse Rate 101 H 101 H 88 Respiratory Rate 18 21 H 19 H Blood Pressure 120/88 H 134/84 H Blood Pressure Mean 98 100 Pulse Ox 95 96 96 Oxygen Delivery Method Room Air Room Air Room Air Weight Weight: 223 lb Body Mass Index (BMI) 34.9 Physical Exam Const oriented x3 Resp normal respiratory effort Cardio regular rate GI GI Narrative: Incisions dressed clean dry and intact, hernia reduced at supraumbilical incision at bedside?tender Inspection: Negative for abdominal distention Results Lab / Micro Data 04/07/25 14:15 04/07/25 14:15 Labs: Laboratory Results - last 24 hr 04/07/25 14:15: WBC 12.5 H, RBC 5.86, Hgb 16.3, Hct 47.1, MCV 80.4, MCH 27.8, MCHC 34.6, RDW Std Deviation 37.2, RDW Coeff of Ghulam 12.9, Plt Count 346, MPV 10.3, Immature Gran % (Auto) 0.500, Neut % (Auto) 79.5 H, Lymph % (Auto) 13.7 L,Coamo % (Auto) 5.4, Eos % (Auto) 0.6, Baso % (Auto) 0.3, Absolute Neuts (auto) 10.0 H, Absolute Lymphs (auto) 1.71, Nucleated RBC % 0, Sodium 137, Potassium 3.6, Chloride 100, Carbon Dioxide 22.5, Anion Gap 15, BUN 16, Creatinine 0.93, Estim Creat Clear Calc 107.69, Est GFR (MDRD) Non-Af 101, BUN/Creatinine Ratio 17.4, Glucose 119 H, Calcium 9.9, Total Bilirubin 0.75, AST 18, ALT 26, AlkalinePhosphatase 52, Total Protein 7.6, Albumin 4.2, Globulin 3.4, Albumin/Globulin Ratio 1.2, Lipase 36 Assessment & Plan Assessment/Plan (1) Incisional hernia with bowel obstruction: PLAN: Plan Hernia was able to be reduced at bedside. Patient will also be getting NG in the ER to help prevent aspiration during intubation in the OR. Plan for incisional hernia repair discussed risk including but not limited to bleeding, infection, need for further surgery. Patient is had no further question this time. Abbie Philip M.D. Pager: [phone] [facility] [address] [place] [address], [address] [place] [address] Office: [phone] 04/07/25 1540 <Electronically signed by Abbie Philip MD> Cosigner Signature (if applicable): CC: Dr. Abbie Philip MD; No Primary Care Physician~ Signed [facility] Work Phone: Hospital Discharge instructionsAdditional Instructions Advised qlab-gcc-fjvycdv Tylenol 500 mg to 1000 mg Q6 hourly as needed for fever more than 102 Fahrenheit and moderate to severe pain respectively. Ftao-xra-xdksorh, probiotic, lactobacillus/acidophilus 1 tablet twice daily for 7 days. Date of Discharge: 03/18/25[facility] Work Phone: Hospital Discharge instructionsAdditional Instructions Date of Discharge: 04/15/25[facility] Work Phone: Progress note Author Jose Guadalupe Puckett [facility] Note Date/Time March 17, 2025 1:02pm [facility] Medical Records Department [address] [place] [address] Progress Note - Hospitalist 03/17/25 0754 MR#: [id number] Acct: [id number] Name: ALONDRA ARITA Rep #:[id number] : 1975 49 From: Jose Guadalupe White PCP: Care Physician,No Primary Status :ADM IN Location: [facility] [id number] Reason for Visit Chief Complaint: Right upper [...] (Auto) 75.9 H, Lymph % (Auto) 17.5 L,Coamo % (Auto) 4.8, Eos % (Auto) 1.0, [...] Sl. Cloudy, Urine pH 6.0, Ur Specific Bentley 1.010, Urine Protein Negative, Urine Glucose (UA) [...] (Auto) 83.5 H, Lymph % (Auto) 12.9 L,Coamo % (Auto) 3.1, Eos % (Auto) 0.0, [...] without an obstructing lesion seen. Reading Location: [id number] Abdomen/Pelvis CT 03/16/25 12:05 IMPRESSION: Fatty liver. Well-defined lesion right lobe of liver favor focal nodular hyperplasia. Follow-up MR of the abdomen with Eovist in 4-6 months to confirm stability possibly helpful. Reading Location: [id number] C-Arm Fluoroscopy 03/16/25 15:55 IMPRESSION: Intraoperative fluoroscopy status post ERCP, as above. Reading Location: [id number] ERCP X-Ray 03/16/25 15:55 IMPRESSION: Intraoperative fluoroscopy status post ERCP, as above. Reading Location: [facility] Rhythm Strip Rhythm Strip: Sinus [...] of choledocholithiasis: Patient is being admitted to [facility] floor. RUQ sonogram shows cholelithiasis without signs [...] shock if needed Total time spent in uejy-tv-qpgc encounter in discussion of advanced directive 17 minutes. Laboratory Results 03/16/25 09:54: WBC 9.0, RBC 5.93, Hgb 17.0 H, Hct 48.0, MCV 80.9, MCH 28.7, MCHC 35.4, RDW Std Deviation 37.0, RDW Coeff of Ghulam 12.7, Plt Count 237, MPV 10.6, Immature Gran % (Auto) 0.400, Neut % (Auto) 75.9 H, Lymph % (Auto) 17.5 L,Coamo % (Auto) 4.8, Eos % (Auto) 1.0, [...] Sl. Cloudy, Urine pH 6.0, Ur Specific Bentley 1.010, Urine Protein Negative, Urine Glucose (UA) [...] (Auto) 83.5 H, Lymph % (Auto) 12.9 L,Coamo % (Auto) 3.1, Eos % (Auto) 0.0, [...] to confirm stability possibly helpful. Reading Location: [facility] Charges/Coding Visit Charges Inpatient E&M: 80861 Subs Hosp L2 03/17/25 1302 <Electronically signed by Jose Guadalupe Puckett MD> Cosigner Signature (if applicable): CC: ~ Signed [facility] Work Phone: Progress note [facility] Medical Records Department [address] [place] [address] Progress Note - Surgery 04/08/25 1005 MR#: [id number] Acct: [id number] Name: ALONDRA ARITA Rep #:[id number] : 1975 49 From: Abbie Philip MD PCP: Care Physician,No Primary Status :ADM KATHLEEN Location: CA3 [id number] Subjective Subjective Patient did report throwing up when he got to the floor and had some reflux better with medication,patient has tolerated some clears denies flatus Objective Data Objective Data Vital Signs: Vital Signs Temp Pulse Resp BP Pulse Ox O2 Del Method 98.9 F 93 16 116/92 H 92 Room Air 04/08/25 08:46 04/08/25 08:46 04/08/25 08:46 04/08/25 08:46 04/08/25 08:46 04/08/25 08:46 Oxygen Delivery Method Room Air Weight: 222 lb 15.996 oz Body Mass Index (BMI) 33.9 Intake & Output: Intake and Output for Last 24 Hours 04/06/25 04/07/25 04/08/25 23:59 23:59 23:59 Intake Total 1100 / 1100 1820 / 1820 Output Total 700 / 700 Balance 400 / 400 1820 / 1820 Lab / Micro Data 04/07/25 14:15 04/07/25 14:15 Labs: Laboratory Results - last 24 hr 04/07/25 14:15: WBC 12.5 H, RBC 5.86, Hgb 16.3, Hct 47.1, MCV 80.4, MCH 27.8, MCHC 34.6, RDW Std Deviation 37.2, RDW Coeff of Ghulam 12.9, Plt Count 346, MPV 10.3, Immature Gran % (Auto) 0.500, Neut % (Auto) 79.5 H, Lymph % (Auto) 13.7 L,Coamo % (Auto) 5.4, Eos % (Auto) 0.6, Baso % (Auto) 0.3, AbsoluteNeuts (auto) 10.0 H, Absolute Lymphs (auto) 1.71, Nucleated RBC % 0, Sodium 137, Potassium 3.6, Chloride 100, Carbon Dioxide 22.5, Anion Gap 15, BUN 16, Creatinine 0.93, Estim Creat Clear Calc 107.69, Est GFR (MDRD) Non-Af 101, BUN/Creatinine Ratio 17.4, Glucose 119 H, Calcium 9.9, Total Bilirubin 0.75, AST 18, ALT 26, AlkalinePhosphatase 52, Total Protein 7.6, Albumin 4.2, Globulin 3.4, Albumin/G lobulin Ratio 1.2, Lipase 36 Radiography Diagnostic Testing: Radiology Impression Abdomen/Pelvis CT 04/07/25 14:09 IMPRESSION: 1. Proximal small bowel obstruction with transition point at the location of a small supraumbilicalventral abdominal wall hernia, with focally herniated short-segment of jejunal small bowel. 2. 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 This can be confirmed with a dedicated MRI with Eovist. 3. Prior cholecystectomy with biliary ductal stent in place. Postoperative pneumobilia. Reading Location: [id number] Physical Exam Const oriented x3 and no apparent distress Resp normal respiratory effort Cardio regular rate GI GI Narrative: Appropriately tender near incision, dressed with pressure dressing, abdominal binder in place Assessment & Plan Assessment/Plan (1) History of incisional hernia repair: (2) S/P laparoscopic cholecystectomy: PLAN: Plan Patient tolerating clears await flatus to advance diet. Possible DC home today versus tomorrow depending on bowel function Abbie Philip M.D. Pager: [phone] [facility] [address] [place] [address], [facility], [address] [place] [id number] Office: [phone] 04/08/25 1003 Cosigner Signature (if applicable): CC: ~ Signed ADDENDUM by Dr. Abbie Philip MD on 04/08/25 at 1628 Addendum Patient has had a couple emesis remains on clears-- will check KUB 04/08/25 1628 Cosigner Signature (if applicable): cc: ~* Signed ADDENDUM by Dr. Abbie Philip MD on 04/08/25 at 1655 Addendum KUB showed persistent small bowel obstruction CT noncontrast was obtained again shows bowel obstruction not able to see obvious transition area mesh seems to bein place with no hernia. Plan to place NG and plan for small bowel follow- through likely in the morning. 04/08/25 1655 Cosigner Signature (if applicable): cc: ~* [facility] [address] [place] [address] Progress Note - Surgery 04/09/25 0804 MR#: [id number] Acct: [id number] Name: ALONDRA ARITA Rep #:[id number] : 1975 49 From: Yamini SEVERINO PA-C PCP: Care Physician,No Primary Status :ADM KATHLEEN Location: [place] [address] Subjective Subjective Patient evaluated resting comfortably in bed. He notes his main complaint is theNG tube. He notes overall feeling improved. He has passed a small amount of flatus. Negtaive BM. Objective Data Objective Data Vital Signs: Vital Signs Temp Pulse Resp BP Pulse Ox O2 Del Method 98.3 F 80 15 138/87 H 94 Room Air 04/09/25 02:00 04/09/25 02:00 04/09/25 05:00 04/09/25 02:00 04/09/25 02:00 04/09/25 05:00 Oxygen Delivery Method Room Air Weight: 222 lb 15.996 oz Body Mass Index (BMI) 33.9 Intake & Output: Intake and Output for Last 24 Hours 04/07/25 04/08/25 04/09/25 23:59 23:59 23:59 Intake Total 1100 / 1100 2260 / 2260 1060 / 1060 Output Total 700 / 700 1800 / 1800 500 / 500 Balance 400 / 400 460 / 460 560 / 560 Lab / Micro Data 04/09/25 06:25 04/09/25 06:25 Labs: Laboratory Results - last 24 hr 04/09/25 06:25: WBC 6.5, RBC 4.99, Hgb 14.2, Hct 41.3, MCV 82.8, MCH 28.5, MCHC 34.4, RDW Std Deviation 38.8, RDW Coeff of Ghulam 12.9, Plt Count 267, MPV 10.1, Immature Gran % (Auto) 0.200, Neut % (Auto) 61.8, Lymph % (Auto) 23.5, Coamo % (Auto) 10.5 H, Eos % (Auto) 3.7, Baso % (Auto) 0.3, Absolute Neuts (auto) 4.0, Absolute Lymphs (auto) 1.53, Nucleated RBC % 0, Sodium 137, Potassium 3.4, Chloride 101, Carbon Dioxide 22.8, Anion Gap 14, BUN 18, Creatinine 0.94, Estim Creat Clear Calc 108.38, Est GFR (MDRD) Non-Af 98, BUN/Creatinine Ratio 18.9, Glucose 89, Calcium 9.1, Magnesium 1.8 Radiography Diagnostic Testing: Radiology Impression KUB X-Ray 04/08/25 16:40 IMPRESSION: Obstructed bowel-gas pattern. Correlate clinically to rule out ileus Reading Location: [facility] Abdomen/Pelvis CT 04/08/25 16:44 IMPRESSION: Small-bowel obstruction is of concern. Correlate clinically Reading Location: [facility] KUB X-Ray 04/08/25 17:15 IMPRESSION: 1. Enteric tube terminates within the distal stomach/proximal duodenum. 2. Unchanged dilated air-filled small bowel loops in the upper midabdomen. Reading Location: [facility] Physical Exam HEENT HEENT Narrative: NG tube intact GI GI Narrative: Abdomen- soft, slightly distended. Assessment & Plan Assessment/Plan (1) History of incisional hernia repair: (2) Intractable vomiting: (3) SBO (small bowel obstruction): PLAN: Plan I am following this patient in conjunction with Dr. Philip. She has independently evaluated this patient Labs reviewed Plan for small bowel follow-through with Gastrografin via NG tube Continue NG tube Continue to encourage ambulation We will continue to monitor this patient Charges/Coding Visit Charges Inpatient E&M: 63982 Subs Hosp L1 (Post-op; no charge) 04/09/25 0900 Cosigner Signature (if applicable): CC: ~ Signed ADDENDUM by Dr. Abbie Philip MD on 04/09/25 at 1115 Addendum Patient seen and examined agree with Yamini Vora note. After an hour stillstacked loops of small bowel with contrast in the stomach/small bowel. Patient states that he did have a small bowel movement. Patient had about 400 cc when hooked back up to suction in the NG. Discussed with patient recommend diagnostic laparoscopy, possible laparotomy, possible bowel resection discussed risks including but not limited to bleeding, infection, injury to another organ small bowel/colon, hernia and anesthesia. Abbie Philip M.D. Pager: [phone] [facility] [address] [place] [address], [address] [place] [address] Office: [phone] 04/09/25 1117 Cosigner Signature (if applicable): cc: ~* [facility]igned [facility] [address] [place] [address] Progress Note - Surgery 04/10/25 0842 MR#: [id number] Acct: [id number] Name: ALONDRA ARITA Rep #:[id number] : 1975 49 From: Yamini SEVERINO PA-C PCP: Care Physician,No Primary Status :ADM IN Location: [place] [id number] Subjective Subjective Patient evaluated resting comfortably in bed. He notes sore throat otherwise no concerns this morning. He denies any abdominal pain/discomfort. He denies any nausea. NG tube intact. Objective Data Objective Data Vital Signs: Vital Signs Temp Pulse Resp BP Pulse Ox O2 Del Method 98.7 F 91 16 120/70 94 Room Air 04/10/25 08:09 04/10/25 08:09 04/10/25 08:09 04/10/25 08:09 04/10/25 08:09 04/10/25 08:10 Oxygen Delivery Method Room Air Weight: 222 lb 15.996 oz Body Mass Index (BMI) 33.9 Intake & Output: Intake and Output for Last 24 Hours 04/08/25 04/09/25 04/10/25 23:59 23:59 23:59 Intake Total 2260 / 2260 3093.75 / 3093.75 796 / 796 Output Total 1800 / 1800 1605 / 1605 900 / 900 Balance 460 / 460 1488.75 / 1488.75 -104 / -104 Lab / Micro Data 04/09/25 06:25 04/09/25 06:25 Radiography Diagnostic Testing: Radiology Impression Small Bowel X-Ray 04/09/25 09:10 IMPRESSION: Persistent small bowel dilatation. Incomplete study. Findings suggestive of small-bowel obstruction. Reading Location: [facility] Physical Exam HEENT HEENT Narrative: NG tube intact GI GI Narrative: Abdomen- soft, distended. Hypoactive bowel sounds. Assessment & Plan Assessment/Plan (1) Intractable vomiting: (2) SBO (small bowel obstruction): PLAN: Plan I am following this patient in conjunction with Dr. Philip. She will independently evaluate this patient. Order KUB today Clamp NG tube for 4 hours and reconnect to suction Hopeful discontinuation of NG tube later today Continue ambulation and encourage I.S. We will continue to monitor this patient Charges/Coding Visit Charges Inpatient E&M: 73708 Subs Hosp L1 (post-op; no charge) 04/10/25 0935 Cosigner Signature (if applicable): CC: ~ Signed ADDENDUM by Dr. Abbie Philip MD on 04/10/25 at 1600 Addendum Patient seen and examined. Agree with exam and agree with this note. Patient'sKUB still showed stacked dilated loops of small bowel. Did remove patient's NG after clamping trial as patient continued to have bowel function. Will await starting any p.o. until increased bowel functions. 04/10/25 1600 Cosigner Signature (if applicable): cc: ~* Signed ADDENDUM by Dr. Abbie Philip MD on 04/11/25 at 1315 Addendum - 04/11/25 1315 Cosigner Signature (if applicable): cc: ~* [facility]igned [facility] [address] [place] [address] Progress Note - Surgery 04/11/25 09 MR#: [id number] Acct: [id number] Name: ALONDRA ARITA Rep #:[id number] : 1975 49 From: Yamini SEVERINO PA-C PCP: Care Physician,No Primary Status :ADM IN Location: [address] Subjective Subjective Patient evaluated resting comfortably in bed. He notes abdominal cramping as though his bowels are moving. He denies any nausea, vomiting. He continues to note sore throat. He has had multiple bowel movements yesterday and 2 small loose overnight. He has passed flatus. Objective Data Objective Data Vital Signs: Vital Signs Temp Pulse Resp BP Pulse Ox O2 Del Method 98.7 F 82 18 119/73 95 Room Air 04/11/25 02:42 04/11/25 02:42 04/11/25 02:42 04/11/25 02:42 04/11/25 02:42 04/11/25 02:42 Oxygen Delivery Method Room Air Weight: 223 lb 1.725 oz Body Mass Index (BMI) 33.9 Intake & Output: Intake and Output for Last 24 Hours 04/09/25 04/10/25 04/11/25 23:59 23:59 23:59 Intake Total 3093.75 / 3093.75 2920 / 2920 934 / 934 Output Total 1605 / 1605 1050 / 1050 Balance 1488.75 / 1488.75 1870 / 1870 934 / 934 Lab / Micro Data 04/09/25 06:25 04/09/25 06:25 Radiography Diagnostic Testing: Radiology Impression KUB X-Ray 04/10/25 08:37 IMPRESSION: Common duct stent unchanged in position. Stable positioning of the coiled nasogastric tube. Dilation of multiple small bowel loops is again prominently seen, without clear interval improvement since the study of the day before. The remainder of the examination is unchanged. Reading Location: [address] Physical Exam GI GI Narrative: Abdomen- slightly distended. soft. Hypoactive bowel sounds throughout. Nontender Assessment & Plan Assessment/Plan (1) History of incisional hernia repair: (2) SBO (small bowel obstruction): (3) S/P laparoscopic cholecystectomy: PLAN: Plan I am following this patient in conjunction with Dr. Philip. She will independently evaluate this patient. Labs reviewed Order KUB for today Continue NPO at this time, may increase later today No plans for discharge today We will continue to monitor this patient Charges/Coding Visit Charges Inpatient E&M: 46492 Subs Hosp L1 (post-op; no charge) 04/11/25 0912 Cosigner Signature (if applicable): CC: ~ Signed ADDENDUM by Dr. Abbie Philip MD on 04/11/25 at 1316 Addendum Agree with Yamini Vora note. Patient's KUB does look improved, but still does have some dilated small bowel. Patient still having bowel function will started clear liquids. Patient has been ableto tolerate clear liquids. Will advance to fulls for dinner if he continues to do well. Likely hometomorrow. 04/11/25 1316 Cosigner Signature (if applicable): cc: ~* Signed ADDENDUM by Dr. Abbie Philip MD on 04/12/25 at 1525 Addendum Patient seen and examined. Incisions healing well clean dry and intact. Agree with Yamini Delgado. Also reviewed patient CT as well as KUB. Patient does not have a postop ileus no obvious transition area seen on CAT scan. Patient does have more gas and stool in the colon than he has had previously. Patient denies any nausea. Will continue n.p.o./IV fluids/ambulating and will check KUB in the morning. Patient continues to ambulate and chew gum. 04/12/25 1525 Cosigner Signature (if applicable): cc: ~* [facility]igned [facility] [address] [place] [address] Progress Note - Surgery 04/12/25905 MR#: [id number] Acct: [id number] Name: ALONDRA ARITA Rep #:[id number] : 1975 49 From: Yamini SEVERINO PA-C PCP: Care Physician,No Primary Status :ADM IN Location: CA3 [id number] Subjective Subjective Patient evaluated resting comfortably in bed. Patient denies any current nausea.He notes feeling tight in his abdomen. He denies true pain. He notes his sore throat has improved. Objective Data Objective Data Vital Signs: Vital Signs Temp Pulse Resp BP Pulse Ox O2 Del Method 98.5 F 87 16 138/85 H 94 Room Air 04/12/25 08:12 04/12/25 08:12 04/12/25 08:12 04/12/25 08:12 04/12/25 08:12 04/12/25 08:12 Oxygen Delivery Method Room Air Weight: 223 lb 1.725 oz Body Mass Index (BMI) 33.9 Intake & Output: Intake and Output for Last 24 Hours 04/10/25 04/11/25 04/12/25 23:59 23:59 23:59 Intake Total 2920 / 2920 3334 / 3334 2015 Output Total 1050 / 1050 1200 / 1200 Balance 1870 / 1870 2134 / 2134 2015 Lab / Micro Data 04/09/25 06:25 04/09/25 06:25 Radiography Diagnostic Testing: Radiology Impression Abdomen X-Ray 04/11/25 07:00 IMPRESSION: Improvement in the small bowel dilatation with air-fluid levels. Gas and fecal material seen throughout the colon. Reading Location: [facility] KUB X-Ray 04/11/25 18:10 IMPRESSION: Persistent dilated air-filled small bowel loops suggesting SBO or segmental ileus. Reading Location: [id number] Abdomen CT 04/12/25 03:40 IMPRESSION: Likely developing small bowel obstruction as there are distended contrast filledstomach and proximal small bowel. I suspect there are underlying adhesions from previous surgery and there is mesenteric twisting noted on coronal recon images 30 through 42. No oral contrast is noted in distal small bowel loops are within the colon Scattered colonic diverticulosis, no CT evidence of acute diverticulitis No suspicious solid organ abnormality. There has been previous removal of the gallbladder, there mily biliary stent present and pneumobilia noted in the left lobe of the liver No free intraperitoneal fluid, air, or suspicious adenopathy, normal appendix visualized Reading Location: [facility] Abdomen X-Ray 04/12/25 07:50 IMPRESSION: No evidence of pneumoperitoneum. Common duct stent remains in place. Air and stool are seen throughout the large bowel and rectum. Dilated small bowel loops are again seen, but notably partially improved since the prior study of the day before. Findings are concerning for possible partial small bowel obstruction. No interval osseous change is seen. Reading Location: [address] Physical Exam GI GI Narrative: Abdomen- taunt, distended. Slightly tender. Positive bowel sounds Assessment & Plan Assessment/Plan (1) SBO (small bowel obstruction): (2) History of incisional hernia repair: (3) Intractable vomiting: (4) S/P laparoscopic cholecystectomy: PLAN: Plan I am following this patient in conjunction with Dr. Philip. She will independently evaluate this patient. Unfortunately patient had a large emesis last evening CT scan of the ab/pel was completed early this morning which demonstrated small bowel obstruction from possible adhesions. There is mesenteric twisting noted onthe scan as well. Per Dr. Philip, shedoes not agree with the mesenteric twisting. KUB was ordered this morning and demonstrated air and stool within the large bowel and rectum, dilated small bowel loops are noted Continue NPO status Encourage ambulation and I.S. No surgery recommended at this time Will continue to observe and monitor this patient Charges/Coding Visit Charges Inpatient E&M: 45997 Subs Hosp L1 (post-op; no charge) 04/12/25 1052 Cosigner Signature (if applicable): CC: ~ [facility]igned [facility] [address] [place] [address] Progress Note - Surgery 04/13/25 0720 MR#: [id number] Acct: [id number] Name: ALONDRA ARITA Rep #:[id number] : 1975 49 From: Justo White PCP: Care Physician,No Primary Status :ADM IN Location: [facility] [id number] Subjective Subjective Patient seen and examined during AM rounds. He was initially found walking the halls and returned to his room where he reported that he has minimal pain. He describes a bowel movement this morning but no significant appetite. He denies any nausea. Objective Data Objective Data Vital Signs: Vital Signs Temp Pulse Resp BP Pulse Ox O2 Del Method 98.2 F 70 18 131/88 H 95 Room Air 04/13/25 04:45 04/13/25 04:45 04/13/25 04:45 04/13/25 04:45 04/13/25 04:45 04/13/25 04:45 Oxygen Delivery Method Room Air Weight: 223 lb 1.725 oz Body Mass Index (BMI) 33.9 Intake & Output: Intake and Output for Last 24 Hours 04/11/25 04/12/25 04/13/25 23:59 23:59 23:59 Intake Total 3334 / 3334 3952 / 3952 958 / 958 Output Total 1200 / 1200 Balance 2134 / 2134 3952 / 3952 958 / 958 Lab / Micro Data 04/13/25 09:00 04/13/25 09:00 Radiography Diagnostic Testing: Radiology Impression Abdomen X-Ray 04/12/25 07:50 IMPRESSION: No evidence of pneumoperitoneum. Common duct stent remains in place. Air and stool are seen throughout the large bowel and rectum. Dilated small bowel loops are again seen, but notably partially improved since the prior study of the day before. Findings are concerning for possible partial small bowel obstruction. No interval osseous change is seen. Reading Location: [address] Physical Exam Const oriented x3 and no apparent distress Resp normal respiratory effort GI GI Narrative: Distended, soft, operative dressings are removed and Steri-Strips are intact without arianna-incisional erythema. Largely nontender to palpation x 4 quadrants. Assessment & Plan Assessment/Plan (1) SBO (small bowel obstruction): (2) History of incisional hernia repair: (3) Intractable vomiting: PLAN: Now resolved (4) S/P laparoscopic cholecystectomy: PLAN: Plan Patient's status post robot-assisted cholecystectomy followed by incisional hernia repair with meshplacement followed by diagnostic laparoscopy with adhesiolysis for small bowel obstruction. He continues to display evidence of ongoing ileus. He reports bowel movement earlier today, however, denies ongoingflatus and denies an appetite. Scheduled abdominal x-ray continues to show mildly dilated loops of small bowel in addition to nonspecific gas pattern throughout the colon. He is encouraged to continue ambulation and chewing gum/hard candy. He was visited later in the afternoon and his abdominal exam exhibits some improvements. Therefore, I granted him advance to clear liquid diets without carbonation. Gradual return to diet strongly urged. Continue inpatient stay. Dr. Daniel will be rounding in my absence this weekend. Justo Max MD General Surgery Endocrine Surgery Pager: [facility] [address] [place] [address], [facility], [address] [place] [address] Office: [phone] Charges/Coding Visit Charges Inpatient E&M: 59686 Subs Hosp L2 04/13/25 1620 Cosigner Signature (if applicable): CC: ~ [facility]igned [facility] [address] [place] [address] Progress Note - Surgery 04/14/25 1341 MR#: [id number] Acct: [id number] Name: ALONDRA ARITA Rep #:[id number] : 1975 49 From: Mateo Daniel MD PCP: Care Physician,No Primary Status :ADM IN Location: [place] [address] Subjective Subjective Patient seen and evaluated on rounds. Patient states that he is doing much better today. He has passing flatus and has had bowel movements. He has been tolerating clear liquid diet without problems Objective Data Objective Data Vital Signs: Vital Signs Temp Pulse Resp BP Pulse Ox O2 Del Method 97.8 F 71 17 140/91 H 97 Room Air 04/14/25 08:24 04/14/25 08:24 04/14/25 08:24 04/14/25 08:24 04/14/25 08:24 04/14/25 08:24 Oxygen Delivery Method Room Air Weight: 223 lb 1.725 oz Body Mass Index (BMI) 33.9 Intake & Output: Intake and Output for Last 24 Hours 04/12/25 04/13/25 04/14/25 23:59 23:59 23:59 Intake Total 3952 / 3952 2086 / 2286 2296 / 2296 Balance 3952 / 3952 2086 / 2286 2296 / 2296 Lab / Micro Data 04/13/25 09:00 04/13/25 09:00 Physical Exam Narrative He is alert and oriented x 3. He is in no acute distress. Abdomen is soft, nontender and nondistended Assessment & Plan Assessment/Plan (1) SBO (small bowel obstruction): (2) Intractable vomiting: (3) History of incisional hernia repair: PLAN: Plan Patient's status post robot-assisted cholecystectomy followed by incisional hernia repair with meshplacement followed by diagnostic laparoscopy with adhesiolysis for small bowel obstruction. His postoperative ileus seems to be steadily improving. He admits to flatus andbowel movements Patient has been up and ambulating. Will advance diet. Anticipate discharge in the next day or 2 04/14/25 1344 Cosigner Signature (if applicable): CC: ~ [facility]igned [facility] [address] [place] [address] Progress Note - Surgery 04/15/25 1148 MR#: [id number] Acct: [id number] Name: ALONDRA ARITA Rep #:[id number] : 1975 49 From: Mateo Daniel MD PCP: Care Physician,No Primary Status :ADM IN Location: [place] [id number] Subjective Subjective Patient seen and evaluated on rounds this morning. He states that he is doing well. He has been tolerating diet. He is passing gas and having bowel movements. He would like to go home today if possible Objective Data Objective Data Vital Signs: Vital Signs Temp Pulse Resp BP Pulse Ox O2 Del Method 98.1 F 71 16 140/88 H 95 Room Air 04/15/25 08:08 04/15/25 08:08 04/15/25 08:08 04/15/25 08:08 04/15/25 08:08 04/15/25 08:08 Oxygen Delivery Method Room Air Weight: 223 lb 1.725 oz Body Mass Index (BMI) 33.9 Intake & Output: Intake and Output for Last 24 Hours 04/13/25 04/14/25 04/15/25 23:59 23:59 23:59 Intake Total 2085 3754 / 3754 186. Balance 2085 3754 / 3754 Lab / Micro Data 04/13/25 09:00 04/13/25 09:00 Physical Exam Narrative He is alert and oriented x 3. He is in no acute distress. Abdomen is soft and on tender. His abdomen does seem a little distended howeverhe states that this is his normal abdominal size. Assessment & Plan Assessment/Plan (1) History of incisional hernia repair: (2) Intractable vomiting: (3) SBO (small bowel obstruction): (4) Incisional hernia with bowel obstruction: (5) S/P laparoscopic cholecystectomy: PLAN: Plan Patient's status post robot-assisted cholecystectomy followed by incisional hernia repair with meshplacement followed by diagnostic laparoscopy with adhesiolysis for small bowel obstruction. His postoperative ileus seems to be steadily improving. He admits to flatus andbowel movements Patient has been up and ambulating. Patient tolerated diet advancement without incident Will plan discharge for today. Patient is to follow-up in our office in about 1- 2 weeks 04/15/25 1150 Cosigner Signature (if applicable): CC: ~ [facility] Note Date/Time April 08, 2025 5 :55pm [facility] Medical Records Department [address] [place] [address] Progress Note - Surgery 04/08/25 1005 MR#: [id number] Acct: [id number] Name: ALONDRA ARITA Rep #:[id number] : 1975 49 From: Abbie Philip MD PCP: Care Physician,No Primary Status :ADM KATHLEEN Location: CA3 VI074-4 Subjective Subjective Patient did report throwing up when he got to the floor and had some reflux better with medication, patient has tolerated some clears denies flatus Objective Data Objective Data Vital Signs: Vital Signs Temp Pulse Resp BP Pulse Ox O2 Del Method 98.9 F 93 16 116/92 H 92 Room Air 04/08/25 08:46 04/08/25 08:46 04/08/25 08:46 04/08/25 08:46 04/08/25 08:46 04/08/25 08:46 Oxygen Delivery Method Room Air Weight: 222 lb 15.996 oz Body Mass Index (BMI) 33.9 Intake & Output: Intake and Output for Last 24 Hours 04/06/25 04/07/25 04/08/25 23:59 23:59 23:59 Intake Total 1100 / 1100 1820 / 1820 Output Total 700 / 700 Balance 400 / 400 1820 / 1820 Lab / Micro Data 04/07/25 14:15 04/07/25 14:15 Labs: Laboratory Results - last 24 hr 04/07/25 14:15: WBC 12.5 H, RBC 5.86, Hgb 16.3, Hct 47.1, MCV 80.4, MCH 27.8, MCHC 34.6, RDW Std Deviation 37.2, RDW Coeff of Ghulam 12.9, Plt Count 346, MPV 10.3, Immature Gran % (Auto) 0.500, Neut % (Auto) 79.5 H, Lymph % (Auto) 13.7 L,Coamo % (Auto) 5.4, Eos % (Auto) 0.6, Baso % (Auto) 0.3, Absolute Neuts (auto) 10.0 H, Absolute Lymphs (auto) 1.71, Nucleated RBC % 0, Sodium 137, Potassium 3.6, Chloride 100, Carbon Dioxide 22.5, Anion Gap 15, BUN 16, Creatinine 0.93, Estim Creat Clear Calc 107.69, Est GFR (MDRD) Non-Af 101, BUN/Creatinine Ratio 17.4, Glucose 119 H, Calcium 9.9, Total Bilirubin 0.75, AST 18, ALT 26, AlkalinePhosphatase 52, Total Protein 7.6, Albumin 4.2, Globulin 3.4, Albumin/Globulin Ratio 1.2, Lipase 36 Radiography Diagnostic Testing: Radiology Impression Abdomen/Pelvis CT 04/07/25 14:09 IMPRESSION: 1. Proximal small bowel obstruction with transition point at the location of a small supraumbilical ventral abdominal wall hernia, with focally herniated short-segment of jejunal small bowel. 2. 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 This can be confirmed with a dedicated MRI with Eovist. 3. Prior cholecystectomy with biliary ductal stent in place. Postoperative pneumobilia. Reading Location: [facility] Physical Exam Const oriented x3 and no apparent distress Resp normal respiratory effort Cardio regular rate GI GI Narrative: Appropriately tender near incision, dressed with pressure dressing, abdominal binder in place Assessment & Plan Assessment/Plan (1) History of incisional hernia repair: (2) S/P laparoscopic cholecystectomy: PLAN: Plan Patient tolerating clears await flatus to advance diet. Possible DC home today versus tomorrow depending on bowel function Abbie Philip M.D. Pager: [phone] [facility] [address] [place] [address], [address] [place] [address] Office: [phone] 04/08/25 1009 <Electronically signed by Abbie Philip MD> Cosigner Signature (if applicable): CC: ~ Signed ADDENDUM by Dr. Abbie Philip MD on 04/08/25 at 1628 Addendum Patient has had a couple emesis remains on clears-- will check KUB 04/08/25 1628<Electronically signed by Abbie Philip MD> Cosigner Signature (if applicable): cc: ~* Signed ADDENDUM by Dr. Abbie Philip MD on 04/08/25 at 1655 Addendum KUB showed persistent small bowel obstruction CT noncontrast was obtained again shows bowel obstruction not able to see obvious transition area mesh seems to bein place with no hernia. Plan to place NG and plan for small bowel follow-through likely in the morning. 04/08/25 165<Electronically signed by Abbie Philip MD> Cosigner Signature (if applicable): cc: ~* Signed [facility] Work Phone: Progress note Author Yamini Mathew [facility] Note Date/Time April 09, 2025 1 2:15pm [facility] Medical Records Department [address] [place] [address] Progress Note - Surgery 04/09/25 0804 MR#: [id number] Acct: [id number] Name: ALONDRA ARITA Rep #:[id number] : 1975 49 From: Yamini SEVERINO PA-C PCP: Care Physician,No Primary Status :ADM KATHLEEN Location: [place] [address] Subjective Subjective Patient evaluated resting comfortably in bed. He notes his main complaint is theNG tube. He notes overall feeling improved. He has passed a small amount of flatus. Negtaive BM. Objective Data Objective Data Vital Signs: Vital Signs Temp Pulse Resp BP Pulse Ox O2 Del Method 98.3 F 80 15 138/87 H 94 Room Air 04/09/25 02:00 04/09/25 02:00 04/09/25 05:00 04/09/25 02:00 04/09/25 02:00 04/09/25 05:00 Oxygen Delivery Method Room Air Weight: 222 lb 15.996 oz Body Mass Index (BMI) 33.9 Intake & Output: Intake and Output for Last 24 Hours 04/07/25 04/08/25 04/09/25 23:59 23:59 23:59 Intake Total 1100 / 1100 2260 / 2260 1060 / 1060 Output Total 700 / 700 1800 / 1800 500 / 500 Balance 400 / 400 460 / 460 560 / 560 Lab / Micro Data 04/09/25 06:25 04/09/25 06:25 Labs: Laboratory Results - last 24 hr 04/09/25 06:25: WBC 6.5, RBC 4.99, Hgb 14.2, Hct 41.3, MCV 82.8, MCH 28.5, MCHC 34.4, RDW Std Deviation 38.8, RDW Coeff of Ghulam 12.9, Plt Count 267, MPV 10.1, Immature Gran % (Auto) 0.200, Neut % (Auto) 61.8, Lymph % (Auto) 23.5, Coamo % (Auto) 10.5 H, Eos % (Auto) 3.7, Baso % (Auto) 0.3, Absolute Neuts (auto) 4.0, Absolute Lymphs (auto) 1.53, Nucleated RBC % 0, Sodium 137, Potassium 3.4, Chloride 101, Carbon Dioxide 22.8, Anion Gap 14, BUN 18, Creatinine 0.94, Estim Creat Clear Calc 108.38, Est GFR (MDRD) Non-Af 98, BUN/Creatinine Ratio 18.9, Glucose 89, Calcium 9.1, Magnesium 1.8 Radiography Diagnostic Testing: Radiology Impression KUB X-Ray 04/08/25 16:40 IMPRESSION: Obstructed bowel-gas pattern. Correlate clinically to rule out ileus Reading Location: [facility] Abdomen/Pelvis CT 04/08/25 16:44 IMPRESSION: Small-bowel obstruction is of concern. Correlate clinically Reading Location: [facility] KUB X-Ray 04/08/25 17:15 IMPRESSION: 1. Enteric tube terminates within the distal stomach/proximal duodenum. 2. Unchanged dilated air-filled small bowel loops in the upper midabdomen. Reading Location: [facility] Physical Exam HEENT HEENT Narrative: NG tube intact GI GI Narrative: Abdomen- soft, slightly distended. Assessment & Plan Assessment/Plan (1) History of incisional hernia repair: (2) Intractable vomiting: (3) SBO (small bowel obstruction): PLAN: Plan I am following this patient in conjunction with Dr. Philip. She has independently evaluated this patient Labs reviewed Plan for small bowel follow-through with Gastrografin via NG tube Continue NG tube Continue to encourage ambulation We will continue to monitor this patient Charges/Coding Visit Charges Inpatient E&M: 98092 Subs Hosp L1 (Post-op; no charge) 04/09/25 0900 <Electronically signed by Yamini SEVERINO PA-C> Cosigner Signature (if applicable): CC: ~ Signed ADDENDUM by Dr. Abbie Philip MD on 04/09/25 at 1115 Addendum Patient seen and examined agree with Yamini Vora note. After an hour stillstacked loops of small bowel with contrast in the stomach/small bowel. Patient states that he did have a small bowel movement. Patient had about 400 cc when hooked back up to suction in the NG. Discussed with patient recommend diagnostic laparoscopy, possible laparotomy, possible bowel resection discussed risks including but not limited to bleeding, infection, injury to another organ small bowel/colon, hernia and anesthesia. Abibe Philip M.D. Pager: [phone] [facility] [address] [place] [address], [address] [place] [address] Office: [phone] 04/09/25 1117<Electronically signed by Abbie Philip MD> Cosigner Signature (if applicable): cc: ~* Signed [facility] Work Phone: Progress note Author Yamini Mathew [facility] Note Date/Time April 11, 2025 2 :15pm [facility] Medical Records Department [address] [place], [place] [id number] Progress Note - Surgery 04/10/2542 MR#: [id number] Acct: [id number] Name: ALONDRA ARITA Rep #:[id number] : 1975 49 From: Yamini SEVERINO PA-C PCP: Care Physician,No Primary Status :ADM IN Location: [place] [address] Subjective Subjective Patient evaluated resting comfortably in bed. He notes sore throat otherwise no concerns this morning. He denies any abdominal pain/discomfort. He denies any nausea. NG tube intact. Objective Data Objective Data Vital Signs: Vital Signs Temp Pulse Resp BP Pulse Ox O2 Del Method 98.7 F 91 16 120/70 94 Room Air 04/10/25 08:09 04/10/25 08:09 04/10/25 08:09 04/10/25 08:09 04/10/25 08:09 04/10/25 08:10 Oxygen Delivery Method Room Air Weight: 222 lb 15.996 oz Body Mass Index (BMI) 33.9 Intake & Output: Intake and Output for Last 24 Hours 04/08/25 04/09/25 04/10/25 23:59 23:59 23:59 Intake Total 2260 / 2260 3093.75 / 3093.75 796 / 796 Output Total 1800 / 1800 1605 / 1605 900 / 900 Balance 460 / 460 1488.75 / 1488.75 -104 / -104 Lab / Micro Data 04/09/25 06:25 04/09/25 06:25 Radiography Diagnostic Testing: Radiology Impression Small Bowel X-Ray 04/09/25 09:10 IMPRESSION: Persistent small bowel dilatation. Incomplete study. Findings suggestive of small-bowel obstruction. Reading Location: [place] [address] Physical Exam HEENT HEENT Narrative: NG tube intact GI GI Narrative: Abdomen- soft, distended. Hypoactive bowel sounds. Assessment & Plan Assessment/Plan (1) Intractable vomiting: (2) SBO (small bowel obstruction): PLAN: Plan I am following this patient in conjunction with Dr. Philip. She will independently evaluate this patient. Order KUB today Clamp NG tube for 4 hours and reconnect to suction Hopeful discontinuation of NG tube later today Continue ambulation and encourage I.S. We will continue to monitor this patient Charges/Coding Visit Charges Inpatient E&M: 67846 Subs Hosp L1 (post-op; no charge) 04/10/25 0935 <Electronically signed by Yamini SEVERINO PA-C> Cosigner Signature (if applicable): CC: ~ Signed ADDENDUM by Dr. Abbie Philip MD on 04/10/25 at 1600 Addendum Patient seen and examined. Agree with exam and agree with this note. Patient'sKUB still showed stacked dilated loops of small bowel. Did remove patient's NG after clamping trial as patient continued to have bowel function. Will await starting any p.o. until increased bowel functions. 04/10/25 1600<Electronically signed by Abbie Philip MD> Cosigner Signature (if applicable): cc: ~* Signed ADDENDUM by Dr. Abbie Philip MD on 04/11/25 at 1315 Addendum - 04/11/25 1315<Electronically signed by Abbie Philip MD> Cosigner Signature (if applicable): cc: ~* Signed [facility] Work Phone: Progress note Author Yamini Mathew [facility] Note Date/Time April 12, 2025 4 :25pm [facility] Medical Records Department [address] [place] [address] Progress Note - Surgery 04/11/25905 MR#: [id number] Acct: [id number] Name: ALONDRA ARITA Rep #:[id number] : 1975 49 From: Yamini SEVERINO PA-C PCP: Care Physician,No Primary Status :ADM IN [id number] Subject[facility] Subjective Patient evaluated resting comfortably in bed. He notes abdominal cramping as though his bowels are moving. He denies any nausea, vomiting. He continues to note sore throat. He has had multiple bowel movements yesterday and 2 small loose overnight. He has passed flatus. Objective Data Objective Data Vital Signs: Vital Signs Temp Pulse Resp BP Pulse Ox O2 Del Method 98.7 F 82 18 119/73 95 Room Air 04/11/25 02:42 04/11/25 02:42 04/11/25 02:42 04/11/25 02:42 04/11/25 02:42 04/11/25 02:42 Oxygen Delivery Method Room Air Weight: 223 lb 1.725 oz Body Mass Index (BMI) 33.9 Intake & Output: Intake and Output for Last 24 Hours 04/09/25 04/10/25 04/11/25 23:59 23:59 23:59 Intake Total 3093.75 / 3093.75 2920 / 2920 934 / 934 Output Total 1605 / 1605 1050 / 1050 Balance 1488.75 / 1488.75 1870 / 1870 934 / 934 Lab / Micro Data 04/09/25 06:25 04/09/25 06:25 Radiography Diagnostic Testing: Radiology Impression KUB X-Ray 04/10/25 08:37 IMPRESSION: Common duct stent unchanged in position. Stable positioning of the coiled nasogastric tube. Dilation of multiple small bowel loops is again prominently seen, without clear interval improvement since the study of the day before. The remainder of the examination is unchanged. Reading Location: [id number] Physical Exam GI GI Narrative: Abdomen- slightly distended. soft. Hypoactive bowel sounds throughout. Nontender Assessment & Plan Assessment/Plan (1) History of incisional hernia repair: (2) SBO (small bowel obstruction): (3) S/P laparoscopic cholecystectomy: PLAN: Plan I am following this patient in conjunction with Dr. Philip. She will independently evaluate this patient. Labs reviewed Order KUB for today Continue NPO at this time, may increase later today No plans for discharge today We will continue to monitor this patient Charges/Coding Visit Charges Inpatient E&M: 70405 Subs Hosp L1 (post-op; no charge) 04/11/25911 <Electronically signed by Yamini SEVERINO PA-C> Cosigner Signature (if applicable): CC: ~ Signed ADDENDUM by Dr. Abbie Philip MD on 04/11/25 at 1316 Addendum Agree with Yamini Vora note. Patient's KUB does look improved, but still does have some dilated small bowel. Patient still having bowel function will started clear liquids. Patient has been able to tolerate clear liquids. Will advance to fulls for dinner if he continues to do well. Likely home tomorrow. 04/11/25 1316<Electronically signed by Abbie Philip MD> Cosigner Signature (if applicable): cc: ~* Signed ADDENDUM by Dr. Abbie Philip MD on 04/12/25 at 1525 Addendum Patient seen and examined. Incisions healing well clean dry and intact. Agree with Yamini Vora note. Also reviewed patient CT as well as KUB. Patient does not have a postop ileus no obvious transition area seen on CAT scan. Patient does have more gas and stool in the colon than he has had previously. Patient denies any nausea. Will continue n.p.o./IV fluids/ambulating and will check KUB in the morning. Patient continues to ambulate and chew gum. 04/12/251524<Electronically signed by Abbie Philip MD> Cosigner Signature (if applicable): cc: ~* Signed [facility] Work Phone: Progress note Author Yamini Mathew [facility] Note Date/Time April 12, 2025 1 1:52am [facility] Medical Records Department [address] [place] [address] Progress Note - Surgery 04/12/25905 MR#: [id number] Acct: [id number] Name: ALONDRA ARITA Rep #:[id number] : 1975 49 From: Yamini SEVERINO PA-C PCP: Care Physician,No Primary Status :ADM IN Location: MS3 TZ636-5 Subjective Subjective Patient evaluated resting comfortably in bed. Patient denies any current nausea.He notes feeling tight in his abdomen. He denies true pain. He notes his sore throat has improved. Objective Data Objective Data Vital Signs: Vital Signs Temp Pulse Resp BP Pulse Ox O2 Del Method 98.5 F 87 16 138/85 H 94 Room Air 04/12/25 08:12 04/12/25 08:12 04/12/25 08:12 04/12/25 08:12 04/12/25 08:12 04/12/25 08:12 Oxygen Delivery Method Room Air Weight: 223 lb 1.725 oz Body Mass Index (BMI) 33.9 Intake & Output: Intake and Output for Last 24 Hours 04/10/25 04/11/25 04/12/25 23:59 23:59 23:59 Intake Total 2920 / 2920 3334 / 3334 2015 Output Total 1050 / 1050 1200 / 1200 Balance 1870 / 1870 2134 / 2134 2015 Lab / Micro Data 04/09/25 06:25 04/09/25 06:25 Radiography Diagnostic Testing: Radiology Impression Abdomen X-Ray 04/11/25 07:00 IMPRESSION: Improvement in the small bowel dilatation with air-fluid levels. Gas and fecal material seen throughout the colon. Reading Location: [facility] KUB X-Ray 04/11/25 18:10 IMPRESSION: Persistent dilated air-filled small bowel loops suggesting SBO or segmental ileus. Reading Location: [id number] Abdomen CT 04/12/25 03:40 IMPRESSION: Likely developing small bowel obstruction as there are distended contrast filledstomach and proximal small bowel. I suspect there are underlying adhesions from previous surgery and there is mesenteric twisting noted on coronal recon images 30 through 42. No oral contrast is noted in distal small bowel loops are within the colon Scattered colonic diverticulosis, no CT evidence of acute diverticulitis No suspicious solid organ abnormality. There has been previous removal of the gallbladder, there is a biliary stent present and pneumobilia noted in the left lobe of the liver No free intraperitoneal fluid, air, or suspicious adenopathy, normal appendix visualized Reading Location: [facility] Abdomen X-Ray 04/12/25 07:50 IMPRESSION: No evidence of pneumoperitoneum. Common duct stent remains in place. Air and stool are seen throughout the large bowel and rectum. Dilated small bowel loops are again seen, but notably partially improved since the prior study of the day before. Findings are concerning for possible partial small bowel obstruction. No interval osseous change is seen. Reading Location: [id number] Physical Exam GI GI Narrative: Abdomen- taunt, distended. Slightly tender. Positive bowel sounds Assessment & Plan Assessment/Plan (1) SBO (small bowel obstruction): (2) History of incisional hernia repair: (3) Intractable vomiting: (4) S/P laparoscopic cholecystectomy: PLAN: Plan I am following this patient in conjunction with Dr. Philip. She will independently evaluate this patient. Unfortunately patient had a large emesis last evening CT scan of the ab/pel was completed early this morning which demonstrated small bowel obstruction from possible adhesions. There is mesenteric twisting noted onthe scan as well. Per Dr. Philip, she does not agree with the mesenteric twisting. KUB was ordered this morning and demonstrated air and stool within the large bowel and rectum, dilated small bowel loops are noted Continue NPO status Encourage ambulation and I.S. No surgery recommended at this time Will continue to observe and monitor this patient Charges/Coding Visit Charges Inpatient E&M: 08182 Subs Hosp L1 (post-op; no charge) 04/12/25 1052 <Electronically signed by Yamini SEVERINO PA-C> Cosigner Signature (if applicable): CC: ~ Signed [facility] Work Phone: Progress note Author Justo Max [facility] Note Date/Time April 13, 2025 5 :20pm [facility] Medical Records Department [facility] [place] [place] [address] Progress Note - Surgery 04/13/25 0720 MR#: [id number] Acct: [id number] Name: ALONDRA ARITA Rep #:[id number] : 1975 49 From: Justo White PCP: Care Physician,No Primary Status :ADM IN [facility] Subject[facility] Subjective Patient seen and examined during AM rounds. He was initially found walking the halls and returned to his room where he reported that he has minimal pain. He describes a bowel movement this morning but no significant appetite. He denies any nausea. Objective Data Objective Data Vital Signs: Vital Signs Temp Pulse Resp BP Pulse Ox O2 Del Method 98.2 F 70 18 131/88 H 95 Room Air 04/13/25 04:45 04/13/25 04:45 04/13/25 04:45 04/13/25 04:45 04/13/25 04:45 04/13/25 04:45 Oxygen Delivery Method Room Air Weight: 223 lb 1.725 oz Body Mass Index (BMI) 33.9 Intake & Output: Intake and Output for Last 24 Hours 04/11/25 04/12/25 04/13/25 23:59 23:59 23:59 Intake Total 3334 / 3334 3952 / 3952 958 / 958 Output Total 1200 / 1200 Balance 2134 / 2134 3952 / 3952 958 / 958 Lab / Micro Data 04/13/25 09:00 04/13/25 09:00 Radiography Diagnostic Testing: Radiology Impression Abdomen X-Ray 04/12/25 07:50 IMPRESSION: No evidence of pneumoperitoneum. Common duct stent remains in place. Air and stool are seen throughout the large bowel and rectum. Dilated small bowel loops are again seen, but notably partially improved since the prior study of the day before. Findings are concerning for possible partial small bowel obstruction. No interval osseous change is seen. Reading Location: [address] Physical Exam Const oriented x3 and no apparent distress Resp normal respiratory effort GI GI Narrative: Distended, soft, operative dressings are removed and Steri-Strips are intact without arianna-incisional erythema. Largely nontender to palpation x 4 quadrants. Assessment & Plan Assessment/Plan (1) SBO (small bowel obstruction): (2) History of incisional hernia repair: (3) Intractable vomiting: PLAN: Now resolved (4) S/P laparoscopic cholecystectomy: PLAN: Plan Patient's status post robot-assisted cholecystectomy followed by incisional hernia repair with mesh placement followed by diagnostic laparoscopy with adhesiolysis for small bowel obstruction. He continues to display evidence of ongoing ileus. He reports bowel movement earlier today, however, denies ongoingflatus and denies an appetite. Scheduled abdominal x-ray continues to show mildly dilated loops of small bowel in addition to nonspecific gas pattern throughout the colon. He is encouraged to continue ambulation and chewing gum/hard candy. He was visited later in the afternoon and his abdominal exam exhibits some improvements. Therefore, I granted him advance to clear liquid diets without carbonation. Gradual return to diet strongly urged. Continue inpatient stay. Dr. Daniel will be rounding in my absence this weekend. Justo Max MD General Surgery Endocrine Surgery Pager: [facility] [address] [place] [address], [facility], [address] [place] [address] Office: [phone] Charges/Coding Visit Charges Inpatient E&M: 19881 Subs Hosp L2 04/13/25 1620 <Electronically signed by Justo Max MD> Cosigner Signature (if applicable): CC: ~ Signed [facility] Work Phone: Progress note Author Mateo Daniel [facility] Note Date/Time April 14, 2025 2 :44pm [facility] Medical Records Department [address] [place] [address] Progress Note - Surgery 04/14/25 1341 MR#: [id number] Acct: [id number] Name: ALONDRA ARITA Rep #:[id number] : 1975 49 From: Mateo Daniel MD PCP: Care Physician,No Primary Status :ADM IN Location: [place] [address]-1 Subjective Subjective Patient seen and evaluated on rounds. Patient states that he is doing much better today. He has passing flatus and has had bowel movements. He has been tolerating clear liquid diet without problems Objective Data Objective Data Vital Signs: Vital Signs Temp Pulse Resp BP Pulse Ox O2 Del Method 97.8 F 71 17 140/91 H 97 Room Air 04/14/25 08:24 04/14/25 08:24 04/14/25 08:24 04/14/25 08:24 04/14/25 08:24 04/14/25 08:24 Oxygen Delivery Method Room Air Weight: 223 lb 1.725 oz Body Mass Index (BMI) 33.9 Intake & Output: Intake and Output for Last 24 Hours 04/12/25 04/13/25 04/14/25 23:59 23:59 23:59 Intake Total 3952 / 3952 2086 / 2286 2296 / 2296 Balance 3952 / 3952 2086 / 2286 2296 / 2296 Lab / Micro Data 04/13/25 09:00 04/13/25 09:00 Physical Exam Narrative He is alert and oriented x 3. He is in no acute distress. Abdomen is soft, nontender and nondistended Assessment & Plan Assessment/Plan (1) SBO (small bowel obstruction): (2) Intractable vomiting: (3) History of incisional hernia repair: PLAN: Plan Patient's status post robot-assisted cholecystectomy followed by incisional hernia repair with mesh placement followed by diagnostic laparoscopy with adhesiolysis for small bowel obstruction. His postoperative ileus seems to be steadily improving. He admits to flatus andbowel movements Patient has been up and ambulating. Will advance diet. Anticipate discharge in the next day or 2 04/14/25 1344 <Electronically signed by Mateo Daniel MD> Cosigner Signature (if applicable): CC: ~ Signed [facility] Work Phone: Progress note Author Mateo Daniel [facility] Note Date/Time April 15, 2025 1 2:50pm [facility] Medical Records Department [address] [place] [address] Progress Note - Surgery 04/15/25 1148 MR#: [id number] Acct: [id number] Name: ALONDRA ARITA Rep #:[id number] : 1975 49 From: Mateo Daniel MD PCP: Care Physician,No Primary Status :ADM IN Location: [place] [address]1 Subjective Subjective Patient seen and evaluated on rounds this morning. He states that he is doing well. He has been tolerating diet. He is passing gas and having bowel movements. He would like to go home today if possible Objective Data Objective Data Vital Signs: Vital Signs Temp Pulse Resp BP Pulse Ox O2 Del Method 98.1 F 71 16 140/88 H 95 Room Air 04/15/25 08:08 04/15/25 08:08 04/15/25 08:08 04/15/25 08:08 04/15/25 08:08 04/15/25 08:08 Oxygen Delivery Method Room Air Weight: 223 lb 1.725 oz Body Mass Index (BMI) 33.9 Intake & Output: Intake and Output for Last 24 Hours 04/13/25 04/14/25 04/15/25 23:59 23:59 23:59 Intake Total 2085 3754 / 3754 1865. / 1864. Balance 2085 3754 / 3754 1864. / 1864. Lab / Micro Data 04/13/25 09:00 04/13/25 09:00 Physical Exam Narrative He is alert and oriented x 3. He is in no acute distress. Abdomen is soft and on tender. His abdomen does seem a little distended howeverhe states that this is his normal abdominal size. Assessment & Plan Assessment/Plan (1) History of incisional hernia repair: (2) Intractable vomiting: (3) SBO (small bowel obstruction): (4) Incisional hernia with bowel obstruction: (5) S/P laparoscopic cholecystectomy: PLAN: Plan Patient's status post robot-assisted cholecystectomy followed by incisional hernia repair with mesh placement followed by diagnostic laparoscopy with adhesiolysis for small bowel obstruction. His postoperative ileus seems to be steadily improving. He admits to flatus andbowel movements Patient has been up and ambulating. Patient tolerated diet advancement without incident Will plan discharge for today. Patient is to follow-up in our office in about 1- 2 weeks 04/15/25 1150 <Electronically signed by Mateo Daniel MD> Cosigner Signature (if applicable): CC: ~ Signed [facility] Work Phone: Reason for referral (narrative)No reason for referral information [facility] Work Phone: Chief Complaint and Reason [...] 9:40am DISCUSS LAP/ROBOTIC CYNDIE March 23 8:39am Chief Complaint Admit Date GB COLIC PAIN March 16, 2025 12:53pm GB COLIC PAIN March 16, 2025 1:34pm GB COLIC PAIN March 16, 2025 3:37pm GB COLIC PAIN March 17, 2025 7:54am GB COLIC PAIN March 18, 2025 9:40am DISCUSS LAP/ROBOTIC CYNDIE March 23 8:39am Robotic Cholecystectomy w/grams April 04, 2025 11:54am Robotic Cholecystectomy w/grams April 04, 2025 12:19pm INGUINAL HERNIA REPAIR April 07 3:37pm INGUINAL HERNIA REPAIR April 08 10:05am INGUINAL HERNIA REPAIR April 09 8:04am INGUINAL HERNIA REPAIR April 09 2:32pm INGUINAL HERNIA REPAIR April 10 8:42am INGUINAL HERNIA REPAIR April 11 9:06am INGUINAL HERNIA REPAIR April 12 9:06am INGUINAL HERNIA REPAIR April 13 7:20am INGUINAL HERNIA REPAIR April 14 1:41pm INGUINAL HERNIA REPAIR April 15 11:48am Reason for Visit Admit Date Cholelithiasis with acute on chronic cho lecystitis March 16, 2025 12:53pm Cholelithiasis March 23, 2025 8: 39am GERD (gastroesophageal reflux disease) O ctober 2024 8:39am History of incisional hernia repair Octo 2024 2:32pm Intractable vomiting April 09, 2025 2:32pm S/P laparoscopic cholecystectomy April 09, 2025 2:32pm Incisional hernia with bowel obstruction April 09, 2025 2:32pm SBO (small bowel obstruction) April 092024 2:32pm Chief Complaint Admit Date GB COLIC PAIN March 16, 2025 12:53pm GB COLIC PAIN March 16, 2025 1:34pm GB COLIC PAIN March 16, 2025 3:37pm GB COLIC PAIN March 17, 2025 7:54am GB COLIC PAIN March 18, 2025 9:40am DISCUSS LAP/ROBOTIC CYNDIE March 23 8:39am Robotic Cholecystectomy w/grams April 04, 2025 11:54am Robotic Cholecystectomy w/grams April 04, 2025 12:19pm INGUINAL HERNIA REPAIR April 07 3:37pm INGUINAL HERNIA REPAIR April 08 10:05am INGUINAL HERNIA REPAIR April 09 8:04am INGUINAL HERNIA REPAIR April 09 2:32pm INGUINAL HERNIA REPAIR April 10 8:42am INGUINAL HERNIA REPAIR April 11 9:06am INGUINAL HERNIA REPAIR April 12 9:06am INGUINAL HERNIA REPAIR April 13 7:20am INGUINAL HERNIA REPAIR April 14 1:41pm INGUINAL HERNIA REPAIR April 15 11:48am CYNDIE DOS 04/04April 23, 2025 1 :06pm DISCUSS AND SCHEDULE STENT REMOVAL 2024 8:33am Reason for Visit Admit Date Cholelithiasis with acute on chronic cho lecystitis March 16, 2025 12:53pm Cholelithiasis March 23, 2025 8: 39am GERD (gastroesophageal reflux disease) O ctober 2024 8:39am History of incisional hernia repair Octo 2024 2:32pm S/P laparoscopic cholecystectomy April 09, 2025 2:32pm Incisional hernia with bowel obstruction April 09, 2025 2:32pm Intractable vomiting April 09, 2025 2:32pm SBO (small bowel obstruction) April 092024 2:32pm History of incisional hernia repair Da mike 2024 1:06pm S/P laparoscopic cholecystectomy Madisyn kolb 2024 1:06pm Screening for colon cancer April 23, 2025 1:06pm Cholelithiasis April 25, 2025 8 :33am History of incisional hernia repair Da mike 2024 8:33am S/P laparoscopic cholecystectomy Madisyn kolb 2024 8:33am Advance Directives No Advanced Directives Records Found Advance Directive Response Recorded Date/ Time Do you have a Healthcare Power of Vendor Representatives? No March 16, 2025 1:04pm Advance Directive Response Recorded Date/ Time Do you have a Healthcare Power of Vendor Representatives? No March 29, 2025 9:18am Do you have a Healthcare Power of Vendor Representatives? No April 07, 2025 5:56pm Do you have a Healthcare Power of Vendor Representatives? No March 16, 2025 1:04pm Advance Directive Response Recorded Date/ Time Do you have a Healthcare Power of Vendor Representatives? No March 29, 2025 8:18am Do you have a Healthcare Power of Vendor Representatives? No April 07, 2025 4:56pm Do you have a Healthcare Power of Vendor Representatives? No March 16, 2025 12:04pm Family History No Family History Records Found Relationship Condition Age at Onset Recorded Date/T hailey mother Arthritis Unknown father Diabetes mellitus Unknown Cardiac disease Unknown Disorder of respiratory system Unknown Cerebrovascular accident (CVA) Unknown brother Disorder of intestine Unknown Kidney disorder Unknown grandmother Diabetes mellitus Unknown sister Disorder of thyroid Unknown Summary Purpose Additional Source Comments Care Teams (unrecognized sec [...] 2025 End: March 18, 2025 Dr. Yevgeniy Friend , DO Nurse Practitioner Active Start: March 16, [...] March 17, 2025 Dr. Lucretia Bear , Emergency Departm ent Physician Active Start: March 17, 2025 Dr. Landry Mendoza MD Admitting physician Active Start: February Dr. Jose Guadalupe Puckett MD Attending physician Active Start: March 17, 2025 Dr. Jose Guadalupe Puckett MD Nurse Practitioner Active Start: March 17, 2025 Dr. Yevgeniy Sarah DO Nurse Practitioner Active Start: March 17, 2025 SHAHAB ShieldsC Nurse Practitioner Active S tart: March 17, 2025 SHAHAB DawsonC Nurse Practitioner Active Start: March 17, 2025 MERE Robles Nurse Practitioner Active Start: March 17, 2025 Team Status: Active Member Role/Relationship Status Dates No Primary Care Physician Primary care physician Activ e Start: March 18, 2025 Dr. Lucretia Bear , Emergency Departm ent Physician Active Start: March 18, 2025 Dr. Landry Mendoza MD Admitting physician Active Start: February Dr. Jose Guadalupe Puckett MD Attending physician Active Start: March 18, 2025 Dr. Jose Guadalupe Puckett MD Nurse Practitioner Active Start: March 18, 2025 Dr. Yevgeniy Sarah DO Nurse Practitioner Active Start: March 18, 2025 SHAHAB ShieldsC Nurse Practitioner Active S tart: March 18, 2025 Apolonia Pavon NP-C Nurse Practitioner Active Start: March 18, 2025 [...] March 23, 2025 End: March 23, 2025 Team Status: Active Member Role/Relationship Status Dates No Primary Care Physician Primary care physician Activ e Start: March 16, 2025 Dr. Lucretia Bear , Emergency Departm ent Physician Active Start: March 16, 2025 Dr. Landry Mendoza MD Admitting physician Active Start: February Dr. Jose Guadalupe Puckett MD Referring Provider Active Start: March 16, 2025 Dr. Jose Guadalupe Puckett MD Nurse Practitioner Active Start: March 16, 2025 Dr. Yevgeniy Sarah DO Attending physician Active Start: March 16, 2025 Dr. Yevgeniy Sarah DO Nurse Practitioner Active Start: March 16, 2025 Karlee Green ELECTROMECHANICAL TECHNOLOGIST-C Nurse Practitioner Active S tart: March 16, 2025 Apolonia Pavon NP-C Nurse Practitioner Active Start: March 16, 2025 MERE Robles Nurse Practitioner Active Start: March 16, 2025 Team Status: Active Member Role/Relationship Status Dates No Primary Care Physician Primary care physician Activ e Start: April 04, 2025 Dr. Abbie Philip MD Attending physician Active Start: April 04, 2025 Dr. Abbie Philip MD Referring Provider Active Start: April 04, 2025 Dr. Abbie Philip MD Nurse Practitioner Active Start: April 04, 2025 Team Status: Inactive Member Role/Relationship Status Dates No Primary Care Physician Primary care physician Activ e Start: April 04, 2025 End: April 04, 2025 Dr. Abbie Philip MD Attending physician Active Start: April 04, 2025 End: April 04, 2025 Dr. Abbie Philip MD Referring Provider Active Start: April 04, 2025 End: April 04, 2025 Team Status: Active Member Role/Relationship Status Dates No Primary Care Physician Primary care physician Activ e Start: April 07, 2025 Dr. Rich Ramirez MD Emergency Depart ment Physician Active Start: April 07, 2025 Dr. Abbie Philip MD Attending physician Active Start: April 07, 2025 Dr. Abbie Philip MD Nurse Practitioner Active Start: April 07, 2025 Team Status: Active Member Role/Relationship Status Dates No Primary Care Physician Primary care physician Activ e Start: April 08, 2025 Dr. Rich Ramirez MD Emergency Depart ment Physician Active Start: April 08, 2025 Dr. Abbie Philip MD Admitting physician Active Start: April 08, 2025 Dr. Abbie Philip MD Attending physician Active Start: April 08, 2025 Dr. Abbie Philip MD Nurse Practitioner Active Start: April 08, 2025 Team Status: Active Member Role/Relationship Status Dates No Primary Care Physician Primary care physician Activ e Start: April 09, 2025 Dr. Rich Ramirez MD Emergency Depart ment Physician Active Start: April 09, 2025 Dr. Abbie Philip MD Admitting physician Active Start: April 09, 2025 Dr. Abbie Philip MD Nurse Practitioner Active Start: April 09, 2025 Yamini SEVERINO PA-C Attending physician Active Start: April 09, 2025 Team Status: Inactive Member Role/Relationship Status Dates No Primary Care Physician Primary care physician Activ e Start: April 09, 2025 End: April 15, 2025 Dr. Rich Ramirez MD Emergency Depart ment Physician Active Start: April 09, 2025 End: April 15, 2025 Dr. Abbie Philip MD Admitting physician Active Start: April 09, 2025 End: April 15, 2025 Dr. Abbie Philip MD Attending physician Active Start: April 09, 2025 End: April 15, 2025 Team Status: Active Member Role/Relationship Status Dates No Primary Care Physician Primary care physician Activ e Start: April 10, 2025 Dr. Rich Ramirez MD Emergency Depart ment Physician Active Start: April 10, 2025 Dr. Abbie Philip MD Admitting physician Active Start: April 10, 2025 Dr. Abbie Philip MD Nurse Practitioner Active Start: April 10, 2025 Yamini SEVERINO PA-C Attending physician Active Start: April 10, 2025 Team Status: Active Member Role/Relationship Status Dates No Primary Care Physician Primary care physician Activ e Start: April 11, 2025 Dr. Rich Ramirez MD Emergency Depart ment Physician Active Start: April 11, 2025 Dr. Abbie Philip MD Admitting physician Active Start: April 11, 2025 Dr. Abbie Philip MD Nurse Practitioner Active Start: April 11, 2025 Yamini SEVERINO PA-C Attending physician Active Start: April 11, 2025 Team Status: Active Member Role/Relationship Status Dates No Primary Care Physician Primary care physician Activ e Start: April 12, 2025 Dr. Rich Ramirez MD Emergency Depart ment Physician Active Start: April 12, 2025 Dr. Abbie Philip MD Admitting physician Active Start: April 12, 2025 Dr. Abbie Philip MD Nurse Practitioner Active Start: April 12, 2025 Yamini SEVERINO PA-C Attending physician Active Start: April 12, 2025 Team Status: Active Member Role/Relationship Status Dates No Primary Care Physician Primary care physician Activ e Start: April 13, 2025 Dr. Rich Ramirez MD Emergency Depart ment Physician Active Start: April 13, 2025 Dr. Abbie Philip MD Admitting physician Active Start: April 13, 2025 Dr. Abbie Philip MD Nurse Practitioner Active Start: April 13, 2025 Dr. Justo Max MD Attending physician Active Start: April 13, 2025 Team Status: Active Member Role/Relationship Status Dates No Primary Care Physician Primary care physician Activ e Start: April 14, 2025 Dr. Rich Ramirez MD Emergency Depart ment Physician Active Start: April 14, 2025 Dr. Abbie Philip MD Admitting physician Active Start: April 14, 2025 Dr. Abbie Philip MD Nurse Practitioner Active Start: April 14, 2025 Dr. Mateo Daniel MD Attending physician Active Start: April 14, 2025 Team Status: Active Member Role/Relationship Status Dates No Primary Care Physician Primary care physician Activ e Start: April 15, 2025 Dr. Rich Ramirez MD Emergency Depart ment Physician Active Start: April 15, 2025 Dr. Abbie Philip MD Admitting physician Active Start: April 15, 2025 Dr. Abbie Philip MD Nurse Practitioner Active Start: April 15, 2025 Dr. Mateo Daniel MD Attending physician Active Start: April 15, 2025 Team Status: Active Member Role/Relationship Status Dates No Primary Care Physician Primary care physician Activ e Start: April 09, 2025 Dr. Rich Ramirez MD Emergency Depart ment Physician Active Start: April 09, 2025 Dr. Abbie Philip MD Admitting physician Active Start: April 09, 2025 Dr. Abbie Philip MD Attending physician Active Start: April 09, 2025 Dr. Abbie Philip MD Nurse Practitioner Active Start: April 09, 2025 Team Status: Inactive Member Role/Relationship Status Dates No Primary Care Physician Primary care physician Activ e Start: April 23, 2025 End: April 23, 2025 No Primary Care Physician Referring Provider Active Start: April 23, 2025 End: April 23, 2025 Dr. Abbie Philip MD Attending physician Active Start: April 23, 2025 End: April 23, 2025 Team Status: Inactive Member Role/Relationship Status Dates No Primary Care Physician Primary care physician Activ e Start: April 25, 2025 End: April 25, 2025 No Primary Care Physician Referring Provider Active Start: April 25, 2025 End: April 25, 2025 MERE Robles Attending physician Active Start: April 25, 2025 End: April 25, 2025 (unrecognized sect ion and content) No Status Records Found INFORMATION SOURCE (unrecogn ized section and content) DATE CREATED AUTHOR 05/02/2025 [facility] FOR RECORDS PERTAINING TO PATIENTS [...] BE BASED ON THE PRIMARY CLINICAL RECORDS. [employer] provides no warranty or guarantee of the accuracy or completeness of information in this document.
[2025-06-04] MEDS: Lactated Ringers 1,000 ML 15 ML IV (06:50)
--- NOTE | 2025-06-04 07:13 | PCM.PRE.AN2 ---
ASA Classification* ASA Classification ASA Classification: 2 Assessment & Plan Anesthesia* Anesthesia Assessment Anesthesia Assessment: Discussed sedation and/or anesthesia options, risks, benefits, and alternatives with patient/parents/legal guardian/POA. Questions invited. The patient/parents/legal guardian/POA seems to understand and agrees to proceed with anesthesia plan. Reviewed the physical assessment, medical history, allergy history and patient home medications list prior to surgery/procedure/anesthetic and documented any changes. Performed airway and anesthesia risk assessments. Anesthesia Type Anesthesia Type: MAC History Source History Obtained from:: Patient and Chart Anesthesia Focused Assessment* Temperature: 97.7 F Pulse Rate: 80 Blood Pressure: 116/87 Respiratory Rate: 16 Pulse Ox: 98 Oxygen Delivery Method: Room Air Airway Assessment Mouth opens: >3 cm Mallampati Score: I Teeth Condition: Caps/Crowns (Patient has several crowns. They are all tight.) Neck Range of motion (ROM): Full ROM Labs Anesthesia Preop lab: CBC WBC, (4.4-11.0) 7.2 K/mm3 04/13/25, 09:00 RBC, (4.6-6.2) 4.86 M/mm3 04/13/25, 09:00 Hgb, (13.0-16.5) 13.5 g/dL 04/13/25, 09:00 Hct, (40-54) 39.4 % L 04/13/25, 09:00 Plt Count, (150-450) 274 K/mm3 04/13/25, 09:00 CHEMISTRY Potassium, (3.3-5.1) 3.4 mmol/L 04/13/25, 09:00 Sodium, (133-145) 141 mmol/L 04/13/25, 09:00 Magnesium, (1.5-2.2) 2.0 mg/dL 04/13/25, 09:00 Phosphorus, (2.7-4.5) 3.3 mg/dL 04/13/25, 09:00 BUN, (4-19) 9 mg/dL 04/13/25, 09:00 Creatinine, (0.70-1.20) 0.83 mg/dL 04/13/25, 09:00 Glucose, (70-99) 77 mg/dL 04/13/25, 09:00 COAG PT, (11.7-14.9) 13.3 SECONDS 03/16/25, 09:54 Pre-Assessment Diagnosis/Proposed Procedure Planned Operative Procedure(s): COLONOSCOPY Anesthesia History 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 When Was Last Pacemaker Check QUESTION #4 FULL TEXT: You/Your Family Experience fever (hyperthermia) with Anesthesia Last Oral Intake Last Oral intake: Last Oral Intake NPO since 19:00 06/04/25 06:43 Meds taken in AM with sips of water? 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 Female No 05/31/25 10:33 HX of Motion Sickness Yes 05/31/25 10:33 HX of N/V After Surgery Yes 05/31/25 10:33 Non-Smoker Yes 05/31/25 10:33 Duration of Surgery greater No 05/31/25 10:33 than 60 minutes Number of Risk Factors 3 05/31/25 10:33 PONV Score Moderate Risk 05/31/25 10:33 Height & Weight Height & Weight: Anesthesia: Height & Weight Height 5 ft 8 in 06/04/25 06:43 Weight: 102.512 kg 06/04/25 06:43 Body Mass Index (BMI) 34.3 06/04/25 06:43 Respiratory Assessment Respiratory Assessment - 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 Has anyone observed you stop No 05/31/25 10:33 breathing during sleep? STOP Results Negative 05/31/25 10:33 QUESTION #5 FULL TEXT : Do you snore loudly (louder than talking or can be heard through closed doors)? 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 Specify any problems Hx of Preganancy in last 3 N/A 05/31/25 10:33 Months Nurse Filling Out Transfusion VCHRISTIN 05/31/25 10:33 & Questions: Date: 05/31/25 05/31/25 10:33 Time: 10:34 05/31/25 10:33 Patient unable to answer at this time (ie. 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 furnace supervisor Hx Now Gestational Age (in weeks): EDC: Hx Hx Para Hx Section SAB No 03/29/25 09:18 Does the father of the baby or his family experience fever w Father of the baby Malignant Hypertension history comment Active Medications Active Medications: Current Medications Generic Name Dose Route Start Last Admin Trade Name Freq PRN Reason Stop Dose Admin Lactated Ringer's 1,000 mls @ 15 mls/hr 06/04/25 06:30 06/04/25 06:50 IV 15 mls/hr .Q48H DIA Administration PFSH Medical History Wears glasses Gallstones Wears glasses Fatty liver Heartburn Gastric reflux Non-smoker Nausea Abdominal pain GERD (gastroesophageal reflux disease) Home Medications ?Medication ?Instructions ?Recorded ?Last Taken ?Type omeprazole 40 mg capsule,delayed 40 mg PO QDAY PRN GERD 05/31/25 Unknown History release Allergy/AdvReac Type Severity Reaction Status Date / Time No Known Allergies Allergy Verified 06/04/25 06:42 Family History Mother Arthritis Father Diabetes Heart disease Respiratory disease CVA (cerebral vascular accident) Brother Bowel disease Kidney disease Grandmother Diabetes Sister Thyroid disorder Surgical History Hx of surgical procedure History of ERCP History of incisional hernia repair S/P laparoscopic cholecystectomy History of wisdom tooth extraction (~06/21/94) Hx of LASIK History of ERCP (03/16/25) Social History Smoking Status: Never smoker alcohol intake: never substance use type: does not use Review of Systems (Anesthesia) ROS Narrative System reviewed and no additional complaints, except as documented.
--- NOTE | 2025-06-04 07:22 | H&P.OPEN ---
HPI - General General Date of Service: 06/04/25 HPI Narrative ALONDRA ARITA, is a 49 M who presents for screening colonoscopy. Patient denies any changes since office visit. HPI HPI: 49-year-old male presents status post robotic cholecystectomy with hydrops of the gallbladder status post ERCP and sphincterotomy and then subsequent hospitalization for incisional hernia, mesh placement, takeback for lysis of adhesions and prolonged postop ileus. Patient is doing well currently. Patient is tolerating diet and having bowel function patient denies abdominal pain not having nausea or vomiting. Patient's incisions are healing. Patient has never had a colonoscopy. Patient has bowel movements daily and and only occasionally has some blood with wiping. Patient denies any family history of colon cancer. Patient states during COVID he did have 3 months where he did have quite a bit of blood per rectum but that did resolve on its own. Patient not see anyone for this as it resolved on its own. Now he only occasionally has bright red blood with maybe harder stools or needing to wipe a lot. [facility] Medical History Wears glasses Gallstones Wears glasses Fatty liver Heartburn Gastric reflux Non-smoker Nausea Abdominal pain GERD (gastroesophageal reflux disease) Home Medications ?Medication ?Instructions ?Recorded ?Last Taken ?Type omeprazole 40 mg capsule,delayed 40 mg PO QDAY PRN GERD 05/31/25 Unknown History release Allergy/AdvReac Type Severity Reaction Status Date / Time No Known Allergies Allergy Verified 06/04/25 06:42 Family History Mother Arthritis Father Diabetes Heart disease Respiratory disease CVA (cerebral vascular accident) Brother Bowel disease Kidney disease Grandmother Diabetes Sister Thyroid disorder Surgical History Hx of surgical procedure History of ERCP History of incisional hernia repair S/P laparoscopic cholecystectomy History of wisdom tooth extraction (~06/21/94) Hx of LASIK History of ERCP (03/16/25) Social History Smoking Status: Never smoker alcohol intake: never substance use type: does not use Past Medical/Surgical History Planned Operation Planned Operative Procedure(s): COLONOSCOPY Previous Hospitalizations/Surgeries HX Hospitalizations: Yes (gallbladder) Any Problems With Anesthesia: Yes (ponv) You/Your Family Experience Fever (Hyperthermia) With Anes: No Cholinesterase deficiency: No Cardiovascular Hx Hypertension: No Respiratory Hx Sleep Apnea: No Hx Respiratory Tract Infection/Cold (presently): No Do You Snore Loudly (louder than talking or can be heard): No Do You Often Feel Tired/ Fatigued/ Sleepy Dring Daytime?: No Has Anyone Observed You Stop Breathing During Sleep?: No Result (for STOP score): Negative Smoking Status: Never smoker Neurological Does patient have nerve stimulator: No Miscellaneous Recent Exposure to Contagious Disease: No Allergies No Known Allergies Allergy (Verified 06/04/25 06:42) Discharge Is Pt Admitted From a [facility], or a [facility]: No After D/C, Where Do you Plan to Go: Return Home Vital Signs Vital Signs Vital Signs: 06/04/25 06:43 06/04/25 06:43 06/04/25 06:43 Temperature 97.7 F L Temperature Source Temporal Pulse Rate 80 Respiratory Rate 16 Respiratory Pattern Normal Blood Pressure 116/87 H Blood Pressure Mean 96 Blood Pressure Source Monitor Blood Pressure Position Semi-Fowlers Blood Pressure Location Right Arm Baseline BP 116/87 Pulse Ox 98 Oxygen Delivery Method Room Air 06/04/25 07:18 Temperature 97.7 F L Temperature Source Pulse Rate 80 Respiratory Rate 16 Respiratory Pattern Blood Pressure 116/87 H Blood Pressure Mean Blood Pressure Source Blood Pressure Position Blood Pressure Location Baseline BP Pulse Ox 98 Oxygen Delivery Method Room Air Weight Weight: 226 lb Body Mass Index (BMI) 34.3 Physical Exam Const alert, oriented x3 and no apparent distress HEENT normocephalic and head/scalp atraumatic Resp normal respiratory effort Cardio regular rate GI soft to palpation and non-tender; Negative for non-distended Palpation: Negative for guarding Extremity no clubbing, cyanosis or edema Skin no rashes or lesions noted Neuro CN's II-XII intact bilaterally Psych mental status grossly normal Assessment & Plan Assessment/Plan (1) Screening for colon cancer: Surgery Risks - Colonoscopy I discussed with the patient the risks of the procedure: Yes Risks Include but are not Limited To: Risks include but are not limited to: Bleeding, perforation requiring further surgery, inability to complete colonoscopy requiring barium enema.
--- NOTE | 2025-06-04 08:33 | OP.COLON_ITS ---
Patient Name: Jeffrey Delgadillo Procedure Date: 06/04/2025 8:06 AM Date of : 1975 Age: 49 Procedure: Colonoscopy Indications: Screening for colorectal malignant neoplasm Providers: Abbie Philip MD Referring MD: No Primary Care Physician Medicines: Monitored Anesthesia Care Patient Profile: This is a 49 year old male. Last Colonoscopy: none. The patient's first colonoscopy is today. Complications: No immediate complications. Procedure: Pre-Anesthesia Assessment: - Prior to the procedure, a History and Physical was performed, and patient medications and allergies were reviewed. The patient's tolerance of previous anesthesia was also reviewed. The risks and benefits of the procedure and the sedation options and risks were discussed with the patient. All questions were answered, and informed consent was obtained. Prior Anticoagulants: The patient has taken no anticoagulant or antiplatelet agents. ASA Grade Assessment: Per anesthesia. After reviewing the risks and benefits, the patient was deemed in satisfactory condition to undergo the procedure. After I obtained informed consent, the scope was passed under direct vision. Throughout the procedure, the patient's blood pressure, pulse, and oxygen saturations were monitored continuously. The Colonoscope was introduced through the anus and advanced to the cecum, identified by the appendiceal orifice, ileocecal valve and palpation. The colonoscopy was performed without difficulty. The patient tolerated the procedure well. The quality of the bowel preparation was good. Scope In: 8:10:42 AM Scope Withdrawal Time 0 hours 11 minutes 36 seconds Scope Out: 8:26:01 AM Total Procedure Duration Time 0 hours 15 minutes 19 seconds Findings: The perianal and digital rectal examinations were normal. A few small-mouthed diverticula were found in the sigmoid colon. The exam was otherwise without abnormality on direct and retroflexion views. Impression: - Diverticulosis in the sigmoid colon. - The examination was otherwise normal on direct and retroflexion views. - No specimens collected. Recommendation: - Discharge patient to home. - High fiber diet. - Repeat colonoscopy in 10 years for screening purposes. - Continue present medications. Procedure Code(s): --- Professional --- G0121, PT, Colorectal cancer screening; colonoscopy on individual not meeting criteria for high risk Diagnosis Code(s): --- Professional --- Z12.11, Encounter for screening for malignant neoplasm of colon K57.30, Diverticulosis of large intestine without perforation or abscess without bleeding CPT copyright 2021 [employer]. All rights reserved. The codes documented in this report are preliminary and upon wallpaper printer review may be revised to meet current compliance requirements. MD Abbie Wilcox MD 06/04/2025 8:33:13 AM This report has been signed electronically. Number of Addenda: 0 Note Initiated On: 06/04/2025 8:06 AM
--- NOTE | 2025-06-04 08:34 | OP.PROVAT_ITS ---
06/04/2025 No Primary Care Physician Re : Colonoscopy procedure for Jeffrey Delgadillo Dear Care Physician This procedure was performed on Wednesday, June 04, 2025. My impressions and recommendations are as follows: Impressions : - Diverticulosis in the sigmoid colon. - The examination was otherwise normal on direct and retroflexion views. - No specimens collected. Recommendations : - Discharge patient to home. - High fiber diet. - Repeat colonoscopy in 10 years for screening purposes. - Continue present medications. My findings are described in the full procedure note, which is enclosed. If I can be of further assistance, please feel free to contact me at Doctor phone number(s): , Work: . Sincerely, MD Abbie Wilcox MD 06/04/2025 8:33:13 AM This report has been signed electronically.
--- NOTE | 2025-06-04 08:34 | PCM.POST.ANE ---
Anesthesia: Postop Eval I Current Vital Signs Temperature: 97.2 F Pulse Rate: 74 Blood Pressure: 97/74 Respiratory Rate: 16 Pulse Ox: 95 Oxygen Delivery Method: Room Air Assessment Airway patent: Yes Spontaneous unlabored respirations: Yes Mental status: Asleep nausea: No Vomiting: No Anesthesia Complication: No Fluid Hydration Crystalloid volume administer (ml): 600 Total IV fluid infused: 600 Progress Note Anesthesia document: Postop Eval 1 completed: Yes
--- NOTE | 2025-06-04 08:40 | PCM.POSTANE2 ---
Anesthesia Postop Eval I Sum Postop Eval Completion status Anesthesia document: Postop Eval 1 completed: Yes Anesthesia Postop Eval I Summary Anesthesia Postop Eval I Summary: Anesthesia Postop Eval I: Assessment Summary Airway patent Yes 06/04/25 08:35 [email or web address] Spontaneous unlabored Yes 06/04/25 08:35 [email or web address] respirations Mental status Asleep 06/04/25 08:35 [email or web address] nausea No 06/04/25 08:35 [email or web address] Vomiting No 06/04/25 08:35 [email or web address] Anesthesia Postop Eval I: Fluid Summary Crystalloid volume administer 600 06/04/25 08:35 [email or web address] (ml) Colloids volume administered ( ml) Blood Product volume administered (ml) Total IV fluid infused 600 06/04/25 08:35 [email or web address] Anesthesia Postop Eval I: Summary Notes Anesthesia Complication No 06/04/25 08:35 [email or web address] Anesthesia Complication Comment: Post-operative progress note Anesthesia: Postop Eval II Evaluation Mental status: Awake and Calm Pain Level: 0 nausea: No Vomiting: No
== END 2025-06-04 09:22 | disposition home or self-care (01) ==
LOC: EN 06:24 → AC 06:25
PROVIDERS: Visit Provider Surgery
PROC: 0DJD8ZZ Inspection of Lower Intestinal Tract, Via Natural or Artificial Opening Endoscopic (ICD-10-PCS; CPT 45378; principal; 2025-06-04 07:25)
DX: Z12.11 Encounter for screening for malignant neoplasm of colon (principal); K57.30 Diverticulosis of large intestine without perforation or abscess without bleeding; Z90.49 Acquired absence of other specified parts of digestive tract; K21.9 Gastro-esophageal reflux disease without esophagitis; Z79.899 Other long term (current) drug therapy
CPT/HCPCS: 45378; J2405